=== PATIENT | female | born 1935 | race Caucasian/White ===

== ENCOUNTER 2018-04-15 15:03 | Emergency (ER) | payer OTHER, SELFPAY ==
--- NOTE | 2018-04-15 15:09 | DI.RAD.S_ITS ---
PROCEDURE: XR RIBS RT MIN 3V W CXR 1V INDICATIONS: injury pain TECHNIQUE: 2 views of the right ribs were acquired, along with a single view chest. COMPARISON: [facility], CHEST 1 VIEW, 04/28/2017, 15:28. [facility], CHEST 1 VIEW, 07/03/2015, 7:36. [facility], CHEST 2 VIEW, 05/13/2015, 17:55. [facility], CT, PE STUDY (CTA CHEST), 07/11/2017, 12:09. [facility], CHEST 2 VIEW, 12/22/2017, 21:38. FINDINGS: Surgical changes and devices: Sternotomy. Bones and chest wall: No fractures or dislocations. No suspicious bony lesions. Overlying soft tissues appear unremarkable. Lungs and pleura: No pleural effusions or pneumothorax. Bilateral diffuse interstitial prominence. Mediastinum: Mediastinal contours appear normal. Heart size is normal. IMPRESSION: 1. No displaced right rib fractures. 2. Bilateral diffuse interstitial dominance suggesting chronic interstitial lung disease or chronic congestive heart failure. Recommend clinical correlation. Dictated by: Magaly Ramirez M.D. on 04/15/2018 at 16:15 Approved by: Magaly Ramirez M.D. on 04/15/2018 at 16:18
[2018-04-15 15:18] VITALS: BP 178/68; PULSE 84; RESP 18; TEMP 37; O2SAT 95; BMI 24.4
--- NOTE | 2018-04-15 15:43 | ED_ITS ---
HPI - Fall <Jean Ta DO - Last Filed: 04/15/18 15:43> General Chief Complaint: Fall Stated Complaint: GLF YESTERDAY,RIGHT SIDE PAIN,HURTS TO BREATH Time Seen by Provider: 04/15/18 15:35 Related Data Home Medications Medication Instructions Recorded Confirmed atorvastatin 40 mg PO QHS #0 04/28/17 levothyroxine [Synthroid] 50 mcg PO AMCC #30 tab 04/28/17 tiotropium bromide [Spiriva with 1 puff INH QDAY #0 04/28/17 HandiHaler] amlodipine 10 mg PO QDAY #0 07/11/17 aspirin 162 mg PO QDAY #0 07/11/17 omega-3 acid ethyl esters [Lovaza] 1 gm PO QDAY #0 07/11/17 Previous Rx's Medication Instructions Recorded albuterol sulfate 3 ml INH Q6HP PRN #25 ea 07/11/17 nitrofurantoin monohyd/m-cryst 100 mg PO BID 3 Days #6 cap 04/15/18 [Macrobid] Allergies Allergy/AdvReac Type Severity Reaction Status Date / Time Sulfa (Sulfonamide Allergy Intermediate rash Verified 04/15/18 16:18 Antibiotics) acarbose Allergy Verified 04/15/18 16:44 amlodipine Allergy Verified 04/15/18 16:44 losartan Allergy Verified 04/15/18 16:44 montelukast [From Singulair] Allergy Verified 04/15/18 16:44 <Kandace Mcqueen PA-C - Last Filed: 04/15/18 21:27> General Source: patient Mode of arrival: ambulatory Limitations: no limitations History of Present Illness HPI Narrative: This 82-year-old female reached for her phone yesterday and states she did not realize she was on the very edge of the bed. She slipped out of bed onto her hardwood floor hitting her right elbow and ribs. She states that her elbow isn't bothering her at all, but she is sore where she hurt her ribs. It is painful to breathe or move in certain directions, better if she sits still. She denies hitting her head, any other injury or pain elsewhere. She states that she went to work today but felt sore so decided to come in. She also states that she was treated for a urinary infection several weeks ago at her local walk-in clinic. She states that she was having urinary frequency but voiding very small amounts along with some urgency. She states the symptoms have started to recur again in the last week and is concerned that infection is back. She denies any hematuria. She denies any dysuria. She denies any new flank pain, nausea, vomiting, or fever, chills, or sweats. <Kandace Mcqueen PA-C - Last Filed: 04/15/18 21:27> Review of Systems All systems reviewed & are unremarkable except as noted in HPI and below Exam <Jean Ta DO - Last Filed: 04/15/18 15:43> Initial Vital Signs Initial Vital Signs: Vital Signs Temperature 98.6 F 04/15/18 15:18 Pulse Rate 84 04/15/18 15:18 Respiratory Rate 18 04/15/18 15:18 Blood Pressure 178/68 H 04/15/18 15:18 Pulse Oximetry 95 04/15/18 15:18 <SHERRY Jones Last Filed: 04/15/18 21:27> Narrative Exam Narrative: GENERAL APPEARANCE: Patient sitting comfortably, in no distress. HEENT: PERRL, EOMI, no scalp abrasions or hematoma NECK: Supple LUNGS: Clear to auscultation bilaterally. CHEST: There are no ecchymoses or abrasions. Tender to palpation over the right lateral mid ribs. No tenderness elsewhere HEART: Rate and rhythm regular without murmur, normal S1 and S2, no S3 or S4. ABDOMEN: Soft, NT, ND NEUROLOGIC: Alert and oriented, normal speech, and coordination. Ambulates with a shortened gait MUSCULOSKELETAL: no tenderness over cervical, thoracic or lumbar spine. Full Csp AROM. Full AROM of R. UE throughout DERM: R. elbow small scabbed abrasion. 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 She does feel like her urinary symptoms are acute. She has a partial prescription of Macrobid left over at home and will restart this. I also sent a few days worth into the pharmacy for her. Advised scant bacteria on urinalysis and culture is pending, so should follow up with PCP if not fully resolving. Orders Ordered: ED Orders 04/15/18 15:09 XR ribs RT min 3V w CXR1V Stat 04/15/18 16:14 Urinalysis and Microscopic Stat Urine Culture Stat Vital Signs - 8 hr 04/15/18 15:18 04/15/18 17:26 Temperature 98.6 F Pulse Rate 84 64 Respiratory Rate 18 18 Blood Pressure 178/68 H 170/58 H Pulse Oximetry 95 95 MDM - Fall <DO Sydney Darnell Last Filed: 04/15/18 15:43> Lab Data Lab Results 04/15/18 Range/Units 16:14 Urine Color Yellow Urine Appearance Clear Urine pH 7.5 (4.5-8.0) Ur Specific [place] 1.015 (1.000-1.035) Urine Protein Negative (Negative) Urine Glucose (UA) Negative (Normal) g/dL Urine Ketones Negative (NEGATIVE) Urine Occult Blood Negative (Negative) Urine Nitrate Negative (Negative) Urine Bilirubin Negative (NEGATIVE) Urine Urobilinogen 0.2 (0.2) E.U./dL Ur Leukocyte Esterase 1+ H (NEGATIVE) Urine RBC None seen (0-5/HPF) Urine WBC 1-5/hpf (0-5/HPF) Ur Squamous Epith Cells 0-1 /hpf Amorphous Sediment 1+ Urine Bacteria Occasional (0-1) (None) Urine Mucus 1+ H (Negative) Ur Culture Indicated? Specimen cultured Micro UA Comment Not Reportable <Knadace Mcqueen PA-C - Last Filed: 04/15/18 21:27> Lab Data Lab Results 04/15/18 Range/Units 16:14 Urine Color Yellow Urine Appearance Clear Urine pH 7.5 (4.5-8.0) Ur Specific [place] 1.015 (1.000-1.035) Urine Protein Negative (Negative) Urine Glucose (UA) Negative (Normal) g/dL Urine Ketones Negative (NEGATIVE) Urine Occult Blood Negative (Negative) Urine Nitrate Negative (Negative) Urine Bilirubin Negative (NEGATIVE) Urine Urobilinogen 0.2 (0.2) E.U./dL Ur Leukocyte Esterase 1+ H (NEGATIVE) Urine RBC None seen (0-5/HPF) Urine WBC 1-5/hpf (0-5/HPF) Ur Squamous Epith Cells 0-1 /hpf Amorphous Sediment 1+ Urine Bacteria Occasional (0-1) (None) Urine Mucus 1+ H (Negative) Ur Culture Indicated? Specimen cultured Micro UA Comment Not Reportable Imaging Data Chest x-ray: Radiologist's impression: View Report History Print [address] [address] XRay Report Signed Patient: Lindsay Aguilar MR#: [id number] : 1935 Acct:[id number] Age/Sex: 82 / F Date of Service: 04/15/18 Loc: ED Accession Number: [id number] Procedure: XR ribs RT min 3V w CXR1V Ordering Provider: Jean Ta D.O. PROCEDURE: XR RIBS RT MIN 3V W CXR 1V INDICATIONS: injury pain TECHNIQUE: 2 views of the right ribs were acquired, along with a single view chest. COMPARISON: [facility], CHEST 1 VIEW, 04/28/2017, 15:28. [facility], CHEST 1 VIEW, 07/03/2015, 7:36. [facility], CHEST 2 VIEW, 05/13/2015, 17:55. [facility], CT, PE STUDY (CTA CHEST), 07/11/2017, 12:09. [facility], CR, CHEST 2 VIEW, 12/22/2017, 21:38. FINDINGS: Surgical changes and devices: Sternotomy. Bones and chest wall: No fractures or dislocations. No suspicious bony lesions. Overlying soft tissues appear unremarkable. Lungs and pleura: No pleural effusions or pneumothorax. Bilateral diffuse interstitial prominence. Mediastinum: Mediastinal contours appear normal. Heart size is normal. IMPRESSION: 1. No displaced right rib fractures. 2. Bilateral diffuse interstitial dominance suggesting chronic interstitial lung disease or chronic congestive heart failure. Recommend clinical correlation. Dictated by: Magaly Ramirez M.D. on 04/15/2018 at 16:15 Approved by: Magaly Ramirez M.D. on 04/15/2018 at 16:18 Discharge Plan Departure Patient Disposition: Home Clinical Impression: Contusion of rib on right side, Increased urinary frequency Discharge Date/Time: 04/15/18 17:26 Interventions: ED Discharge Assessment Last Done: 04/15/18 17:26 Instructions: Acute Cystitis, DI for Rib Contusion Activity Restrictions/Additional Instructions: Please try taking Tylenol arthritis strength or extended release (650 mg per pill), which is longer acting than what you have at home. You can take 1 tab every 8 hr routinely for pain, and you can add a 4th tab during the day if needed. Also try [id number] lidocaine 4% patches and apply them to your sore ribs to help with pain. None of the should make you sleepy. Please start the antibiotic nitrofurantoin that you already have at home twice daily. I sent in a prescription for a few more days of this to [facility] for you. You should follow up with your PCP if not better in a few days. You should do light duty, i.e. answering phone or greeting, at work until your ribs are better as twisting, bending and lifting may worsen your rib pain. You should return to the closest ED right away if you have any acutely worsening symptoms Prescriptions: New nitrofurantoin monohyd/m-cryst [Macrobid] 100 mg capsule 100 mg PO BID 3 Days Qty: 6 RF: 0 No Action levothyroxine [Synthroid] 50 MCG tablet 50 mcg PO AMCC Qty: 30 RF: 0 atorvastatin 40 MG tablet 40 mg PO QHS Qty: 0 RF: 0 tiotropium bromide [Spiriva with HandiHaler] 18 MCG capsule, w/inhalation device 1 puff INH QDAY Qty: 0 RF: 0 aspirin 81 MG tablet,delayed release (DR/EC) 162 mg PO QDAY Qty: 0 RF: 0 amlodipine 10 MG tablet 10 mg PO QDAY Qty: 0 RF: 0 omega-3 acid ethyl esters [Lovaza] 1 GM capsule 1 gm PO QDAY Qty: 0 RF: 0 albuterol sulfate 2.5 MG/3 ML solution for nebulization 3 ml INH Q6HP PRNQty: 25 RF: 5 Referrals: Allie Fleming MD [Physician] - Stand Alone Forms: Work/School Restrictions
--- NOTE | 2018-04-15 15:48 | ED.FALL ---
HPI - Fall General Chief Complaint: Fall Stated Complaint: GLF YESTERDAY,RIGHT SIDE PAIN,HURTS TO BREATH Time Seen by Provider: 04/15/18 15:45 Related Data Home Medications Medication Instructions Recorded Confirmed atorvastatin 40 mg PO QHS #0 04/28/17 levothyroxine [Synthroid] 50 mcg PO AMCC #30 tab 04/28/17 tiotropium bromide [Spiriva with 1 puff INH QDAY #0 04/28/17 HandiHaler] amlodipine 10 mg PO QDAY #0 07/11/17 aspirin 162 mg PO QDAY #0 07/11/17 omega-3 acid ethyl esters [Lovaza] 1 gm PO QDAY #0 07/11/17 Previous Rx's Medication Instructions Recorded albuterol sulfate 3 ml INH Q6HP PRN #25 ea 07/11/17 Allergies Allergy/AdvReac Type Severity Reaction Status Date / Time No Known Drug Allergies Allergy Unknown STATES Unverified 12/03/17 12:34 [NO KNOWN DRUG ALLERGIES] ALLERGIC TO AN ANTIBIOTIC, DOES NOT RECALL WHICH ONE Exam Initial Vital Signs Initial Vital Signs: Vital Signs Temperature 98.6 F 04/15/18 15:18 Pulse Rate 84 04/15/18 15:18 Respiratory Rate 18 04/15/18 15:18 Blood Pressure 178/68 H 04/15/18 15:18 Pulse Oximetry 95 04/15/18 15:18 PFSH Social History Smoking Status: Former smoker Course Orders Ordered: ED Orders 04/15/18 15:09 XR ribs RT min 3V w CXR1V Stat Vital Signs - 8 hr 04/15/18 15:18 Temperature 98.6 F Pulse Rate 84 Respiratory Rate 18 Blood Pressure 178/68 H Pulse Oximetry 95 Discharge Plan Departure Prescriptions: No Action levothyroxine [Synthroid] 50 MCG tablet 50 mcg PO AMCC Qty: 30 RF: 0 atorvastatin 40 MG tablet 40 mg PO QHS Qty: 0 RF: 0 tiotropium bromide [Spiriva with HandiHaler] 18 MCG capsule, w/inhalation device 1 puff INH QDAY Qty: 0 RF: 0 aspirin 81 MG tablet,delayed release (DR/EC) 162 mg PO QDAY Qty: 0 RF: 0 amlodipine 10 MG tablet 10 mg PO QDAY Qty: 0 RF: 0 omega-3 acid ethyl esters [Lovaza] 1 GM capsule 1 gm PO QDAY Qty: 0 RF: 0 albuterol sulfate 2.5 MG/3 ML solution for nebulization 3 ml INH Q6HP PRNQty: 25 RF: 5
[2018-04-15 16:42] LABS: RBC Urine None Seen (0-5/HPF)
[2018-04-15 16:51] LABS: Appearance Urine UA CLEAR; Bilirubin Urine UA NEGATIVE (NEGATIVE); Color Urine UA YELLOW; Glucose Urine UA NEGATIVE (Normal); Ketones Urine UA NEGATIVE (NEGATIVE); Leukocyte Esterase Urine UA 1+ (NEGATIVE); Nitrite Urine UA Negative (Negative); Occult Blood Urine UA NEGATIVE (Negative); Protein Urine UA NEGATIVE (Negative); Specific Gravity Urine UA 1.015 (1.000-1.035); Urobilinogen Urine UA 0.2 E.U./dL (0.2); pH Urine UA 7.5 (4.5-8.0)
[2018-04-15 16:53] LABS: Amorphous Sediment Urine 1+; Bacteria Urine Occasional (0-1); Mucus Urine 1+ (Negative); Squamous Epithelial Cell Urine 0-1 /HPF; WBC Urine 1-5/HPF (0-5/HPF)
[2018-04-15 16:54] LABS: Culture Indicated Urine Specimen Cultured
[2018-04-15 17:26] VITALS: BP 170/58; PULSE 64; RESP 18; O2SAT 95
== END 2018-04-15 17:26 | disposition home or self-care (01) ==
PROVIDERS: Emergency Provider Internal Medicine
DX: R10.9 Unspecified abdominal pain (principal)
CPT/HCPCS: 71101; 81001; 87086; 99282

== ENCOUNTER 2018-04-17 12:04 | Inpatient (IN) | payer OTHER, SELFPAY ==
[2018-04-17] VITALS (16 sets, daily range): BP systolic 129–185; BP diastolic 47–85; PULSE 10–110; RESP 18–35; TEMP 36.6–38.6; O2SAT 88–97; BMI 20.7; BMI 20.8
[2018-04-17] MEDS: ALBUTEROL/IPRATROPIUM 3 ML AMPUL INH (12:18)
--- NOTE | 2018-04-17 12:24 | ED.WEAKNESS ---
HPI - Weakness General Chief complaint: Weakness Stated complaint: Multiple Complaints Time Seen by Provider: 04/17/18 12:07 Source: patient and EMS Mode of arrival: EMS Limitations: no limitations History of Present Illness HPI Narrative: Patient is an 82-year-old female who was seen here in the emergency department a couple days ago after having a mechanical fall and hitting her right side of her chest. She had workup at that time which did not show any rib fractures. She was discharged home. She does have a history of COPD and uses 2 L of oxygen by nasal cannula at night. She states that since she was discharged from here she has had continued right-sided pain and since then it has become worse and she has had more problems breathing. She has had to use her nasal cannula more often. She states that she did take her pain medication. Denies any chest pain. States she feels very weak and tired. Related Data Home Medications Medication Instructions Recorded Confirmed atorvastatin 40 mg PO QHS #0 04/28/17 04/17/18 levothyroxine [Synthroid] 50 mcg PO [facility] #30 tab 04/28/17 04/17/18 tiotropium bromide [Spiriva with 1 puff INH QDAY #0 04/28/17 04/17/18 HandiHaler] amlodipine 10 mg PO QDAY #0 07/11/17 04/17/18 aspirin 162 mg PO QDAY #0 07/11/17 04/17/18 omega-3 acid ethyl esters [Lovaza] 1 gm PO QDAY #0 07/11/17 04/17/18 albuterol sulfate 3 ml INH Q6HP PRN 04/17/18 04/17/18 Previous Rx's Medication Instructions Recorded nitrofurantoin monohyd/m-cryst 100 mg PO BID 3 Days #6 cap 04/15/18 [Macrobid] Allergies Allergy/AdvReac Type Severity Reaction Status Date / Time Sulfa (Sulfonamide Allergy Intermediate rash Verified 04/15/18 16:18 Antibiotics) acarbose Allergy Verified 04/15/18 16:44 amlodipine Allergy Verified 04/15/18 16:44 losartan Allergy Verified 04/15/18 16:44 montelukast [From Singulair] Allergy Verified 04/15/18 16:44 Review of Systems Constitutional Reports fatigue, Denies fever(s), Denies headache(s) and Reports malaise ENT Ears, Nose, Mouth, and Throat: Denies vertigo and Denies headache(s) Cardiovascular Denies chest pain and Reports dyspnea Comments: Right lower rib pain Respiratory Denies chest congestion, Denies cough, Reports pain on inspiration, Reports dyspnea and Reports wheezing Gastrointestinal Gastrointestinal: Denies abdominal pain, Denies nausea and Denies vomiting Genitourinary Denies dysuria Musculoskeletal Denies myalgias and Denies arthralgias Integumentary/Breasts Denies lesions and Denies rash Neurologic Denies confusion, Denies vertigo and Denies headache(s) Psychiatric Denies confusion Endocrine Reports fatigue Hematologic/Lymphatic Denies easy bleeding and Denies easy bruising Allergic/Immunologic Reports wheezing PFSH Medical History Unstable angina (Chronic) Elevated TSH (Chronic) Aneurysm of infrarenal abdominal aorta (Chronic) CAD (coronary artery disease) (Chronic) COPD (chronic obstructive pulmonary disease) with emphysema (Chronic) HTN (hypertension) (Chronic) Hyperlipidemia (Chronic) Valvular heart disease (Chronic) Bilateral carpal tunnel syndrome (Resolved) Surgical History H/O hysterectomy with oophorectomy (Resolved) H/O three vessel coronary artery bypass (Resolved) Hx of heart artery stent (Resolved) Status post cholecystectomy (Resolved) Social History household members: children Smoking Status: Former smoker alcohol intake: never Exam Initial Vital Signs Initial Vital Signs: Vital Signs Pulse Rate 10 L 04/17/18 12:17 Respiratory Rate 32 H 04/17/18 12:17 Pulse Oximetry 97 04/17/18 12:17 Const General: cooperative, well developed, well groomed and in distress (Mild) Orientation: alert, awake and oriented x3 HENMT Head: normal to inspection and normocephalic Resp Effort & Inspection: no cough, labored, no nasal flaring, no retractions, no stridor, tachypneic, no tracheal deviation and symmetric chest movement Auscultation: wheezes expiratory wheezes Cardio Rate: regular rate Rhythm: regular rhythm GI Inspection: non-distended Palpation: soft, No firm and No tender Back/Spine/Pelvis Back: No CVA tenderness Other: Right-sided lower rib pain and right flank pain. Skin Lesions: no lesions Rashes: no rashes Neuro General: alert, awake and oriented x3 Cognition: normal cognition Extrem General: normal to inspection, capillary refill normal and No edema Psych Appearance: grossly normal and well kempt Scores GCS [place] coma scale eye opening: Spontaneous [place] coma scale verbal response: Orientated [place] coma scale motor response: Obey commands [place] coma scale total score: 15 Course Orders Ordered: ED Orders 04/17/18 12:42 XR chest 1V Stat 04/17/18 13:00 B Type Natriuretic Peptide Stat Complete Blood Count AUTO DIFF Stat Comprehensive Metabolic Panel Stat Lactate (Lactic Acid) Stat Lipase Stat Procalcitonin Stat 04/17/18 14:41 Urinalysis and Microscopic Routine 04/17/18 14:44 Education, smoking cessation ONGOING 04/17/18 14:49 Consult to Discharge Planning Routine Consult to Physical Therapy Evaluate & Treat 04/17/18 15:15 Blood Culture Urgent 04/18/18 05:00 Complete Blood Count AUTO DIFF DAILY Comprehensive Metabolic Panel DAILY Acetaminophen (Tylenol) 650 mg PO Q4HR PRN PRN Reason: Fever Last Admin: 04/17/18 15:06 Dose: 650 mg Albuterol (Ventolin) 2.5 mg INH Q6H PRN PRN Reason: Shortness Of Breath Amlodipine Besylate (Norvasc) 10 mg PO DAILY [facility] Aspirin (Aspirin Ec) 162 mg PO DAILY [facility] Atorvastatin Calcium (Lipitor) 40 mg PO BEDTIME [facility] Bisacodyl (Dulcolax) 10 mg [place] DAILY PRN PRN Reason: Constipation Docusate Sodium (Colace) 100 mg PO BID [facility] Enoxaparin Sodium (Lovenox) 40 mg SUBCUT DAILY [facility] Last Admin: 04/17/18 15:34 Dose: 40 mg Ceftriaxone Sodium/Dextrose (Rocephin) 1 gm in 50 mls @ 100 mls/hr IV Q24H [facility] Last Infusion: 04/17/18 16:09 Dose: 100 mls/hr Admin: 04/17/18 15:34 Dose: 100 mls/hr Sodium Chloride (Normal Saline 0.45%) 1,000 mls @ 75 mls/hr IV CONT [facility] Last Admin: 04/17/18 15:09 Dose: 75 mls/hr Azithromycin 500 mg/ Dextrose 250 mls @ 250 mls/hr IV Q24H [facility] Last Admin: 04/17/18 16:09 Dose: 250 mls/hr Levothyroxine Sodium (Synthroid) 50 mcg PO 0600 [facility] Naloxone HCl (Narcan) 0.2 mg IV Q2MIN PRN PRN Reason: Opiate Reversal Ondansetron HCl (Zofran) 4 mg IV Q8HR PRN PRN Reason: Nausea And Vomiting Oxycodone/Acetaminophen (Percocet 5/325) 1 tab PO Q4HR PRN PRN Reason: Pain, Moderate (4-6) Pantoprazole Sodium (Protonix) 20 mg PO 0600 [facility] Sennosides (Senna) 17.2 mg PO BEDTIME ROLANDA Tiotropium [place] (Spiriva) 18 mcg INH DAILY [facility] Discontinued Medications Albuterol/Ipratropium (Duoneb) 3 ml INH NOW ONE Stop: 04/17/18 12:17 Last Admin: 04/17/18 12:18 Dose: 3 ml Sodium Chloride (Normal Saline 0.9%) 1,000 mls @ 125 mls/hr IV CONT [facility] Last Infusion: 04/17/18 15:07 Dose: 75 mls/hr Infusion: 04/17/18 14:23 Dose: 0 mls/hr Admin: 04/17/18 13:24 Dose: 125 mls/hr Vital Signs - 8 hr 04/17/18 12:17 04/17/18 12:22 04/17/18 12:33 Temperature 99.6 F Pulse Rate 10 L 110 H 98 H Respiratory Rate 32 H 35 H 31 H Blood Pressure 185/66 H Blood Pressure [Left Arm] 182/69 H Pulse Oximetry 97 91 95 04/17/18 12:49 04/17/18 13:00 04/17/18 13:48 Temperature Pulse Rate 110 H 101 H Respiratory Rate 27 H 29 H Blood Pressure Blood Pressure [Left Arm] 162/85 H 163/64 H Pulse Oximetry 97 95 95 04/17/18 14:15 04/17/18 14:27 04/17/18 15:06 Temperature 101.4 F H 98.8 F 101.4 F H Pulse Rate 102 H 110 H Respiratory Rate 28 H 24 Blood Pressure 175/78 H 155/75 H Blood Pressure [Left Arm] Pulse Oximetry 95 95 04/17/18 15:24 04/17/18 15:42 04/17/18 15:52 Temperature 98.5 F Pulse Rate 109 H Respiratory Rate 20 Blood Pressure 168/75 H Blood Pressure [Left Arm] Pulse Oximetry 95 93 95 MDM - Weakness Medical Records Attestation: I reviewed the patient's medical records. Lab Data Attestation: I reviewed the patient's lab results. Result diagrams: 04/17/18 13:00 04/17/18 13:00 Lab Results 04/17/18 04/17/18 04/17/18 Range/Units 13:00 13:00 13:00 WBC 11.5 H (4.5-11.0) X10^3/uL RBC 5.34 H (4.0-5.2) X10^6/uL Hgb 15.0 (12.0-16.0) g/dL Hct 44.7 (36-46) % MCV 83.6 (80-100) fL MCH 28.1 (26-34) PG MCHC 33.6 (30-36) % RDW 15.0 H (11.6-14.8) % Plt Count 211 (150-400) X10^3/uL Neut % (Auto) 90.1 H (50-75) % Lymph % (Auto) 4.0 L (25-40) % [place] % (Auto) 3.3 (3-14) % Eos % (Auto) 1.9 L (2-4) % Baso % (Auto) 0.7 (0-2) % Neut # (Auto) 95568 H (7541-7405) /uL Sodium 140 (137-145) mmol/L Potassium 4.3 (3.4-5.1) mmol/L Chloride 101 (98-107) mmol/L Carbon Dioxide 27 (22-32) mmol/L BUN 24 H (7-17) mg/dL Creatinine 0.90 (0.52-1.04) mg/dL Estimated GFR > 60.0 (>60) mL/min BUN/Creatinine Ratio 26.7 H (6-22) Glucose 111 H (80-110) mg/dL Lactate (0.7-2.1) mmol/L Calcium 10.4 H (8.4-10.2) mg/dL Total Bilirubin 1.0 (0.2-1.3) mg/dL AST 24 (14-36) IU/L ALT 27 (9-52) IU/L Alkaline Phosphatase 66 (38-126) U/L B-Natriuretic Peptide 267.0 H (<100) Total Protein 6.7 (6.3-8.2) g/dL Albumin 4.0 (3.5-5.0) g/dL Globulin 2.7 (1.7-4.1) g/dL Albumin/Globulin Ratio 1.5 (1.0-2.8) Lipase 44 (23-300) U/L Procalcitonin 0.18 (<0.5) ng/mL 04/17/18 Range/Units 13:00 WBC (4.5-11.0) X10^3/uL RBC (4.0-5.2) X10^6/uL Hgb (12.0-16.0) g/dL Hct (36-46) % MCV (80-100) fL MCH (26-34) PG MCHC (30-36) % RDW (11.6-14.8) % Plt Count (150-400) X10^3/uL Neut % (Auto) (50-75) % Lymph % (Auto) (25-40) % [place] % (Auto) (3-14) % Eos % (Auto) (2-4) % Baso % (Auto) (0-2) % Neut # (Auto) (3218-8555) /uL Sodium (137-145) mmol/L Potassium (3.4-5.1) mmol/L Chloride (98-107) mmol/L Carbon Dioxide (22-32) mmol/L BUN (7-17) mg/dL Creatinine (0.52-1.04) mg/dL Estimated GFR (>60) mL/min BUN/Creatinine Ratio (6-22) Glucose (80-110) mg/dL Lactate 1.5 (0.7-2.1) mmol/L Calcium (8.4-10.2) mg/dL Total Bilirubin (0.2-1.3) mg/dL AST (14-36) IU/L ALT (9-52) IU/L Alkaline Phosphatase (38-126) U/L B-Natriuretic Peptide (<100) Total Protein (6.3-8.2) g/dL Albumin (3.5-5.0) g/dL Globulin (1.7-4.1) g/dL Albumin/Globulin Ratio (1.0-2.8) Lipase (23-300) U/L Procalcitonin (<0.5) ng/mL Imaging Data Chest x-ray: Radiologist's impression: [place] [id number] [place] [id number] XRay Report Signed Patient: Lindsay Aguilar AMR#: [id number] : 7Acct:[id number] Age/Sex: 82 / FDate of Service: 04/17/18 Loc: ED Accession Number: [id number] Procedure: XR chest 1V Ordering Provider: Jean Ta D.O. PROCEDURE: XR CHEST 1V INDICATIONS: SOB TECHNIQUE: One view of the chest was acquired. COMPARISON: [facility], , CHEST 2 VIEW, 12/22/2017, 21:38. FINDINGS: Surgical changes and devices: Postoperative changes are present related to prior median sternotomy. Lungs and pleura: There are low lung volumes. Subtle airspace disease at the left diaphragm is identified a partially obscures the diaphragm and the costophrenic angle. There is blunting of the right costophrenic angle, as well. No large area of consolidation is evident. There is no pleural effusion. Mediastinum: Mediastinal contours appear normal. The heart is borderline enlarged. There are is aortic atherosclerosis. Bones and chest wall: No suspicious bony lesions. Overlying soft tissues appear unremarkable. IMPRESSION: 1. Probable trace bilateral effusions and associated atelectasis. 2. Borderline enlargement of the heart. Dictated by: Xavier Nolan M.D. on 04/17/2018 at 12:19 Approved by: Xavier Nolan M.D. on 04/17/2018 at 12:20 ECG Data Attestation: I personally reviewed and interpreted this ECG as follows: Prior ECG tracings: not available for review Interpretation: Sinus rhythm Ventricular rate in 99 Normal axis Right bundle branch block Normal QTC Nonspecific ST T wave changes MDM Narrative Medical decision making narrative: Reported by nursing staff patient having wheezing upon arrival. Received a nebulizer treatment here in the ER which did improve some of her symptoms. She was tachypneic upon arrival. Was never hypoxic however is on 2 L of oxygen by nasal cannula. She does have this at home but only uses it at night. Has had worsening right-sided flank pain since her fall couple days ago. Chest x-ray today is concerning for atelectasis. I suspect that secondary to the pain she has been splinting at home. This does set her up for conditions such as pneumonia. Only a very slightly elevated white blood cell count. She was afebrile here in the ER. I feel that given her age and her right-sided pain and the possibility of a rib fracture not seen on the chest x-ray and the fact that she has been splinting that her pain is not controlled and potentially causing issues with her COPD. I feel that admission to the hospital is warranted for continued respiratory support. Discussed the case with Dr. Stiles who accepts the patient. Discussed admission with the patient who expressed understanding and agreement. Discharge Plan Departure Patient Disposition: Admitted as Observation Clinical Impression: Chest pain, Acute respiratory distress, Atelectasis of both lungs Discharge Date/Time: 04/17/18 14:27 Interventions: ED Discharge Assessment Last Done: 04/17/18 14:27 Admit Date/Time: 04/17/18 13:51 Admit Provider: Praneeth Monet
--- NOTE | 2018-04-17 12:42 | DI.RAD.S_ITS ---
PROCEDURE: XR CHEST 1V INDICATIONS: SOB TECHNIQUE: One view of the chest was acquired. COMPARISON: [facility], , CHEST 2 VIEW, 12/22/2017, 21:38. FINDINGS: Surgical changes and devices: Postoperative changes are present related to prior median sternotomy. Lungs and pleura: There are low lung volumes. Subtle airspace disease at the left diaphragm is identified a partially obscures the diaphragm and the costophrenic angle. There is blunting of the right costophrenic angle, as well. No large area of consolidation is evident. There is no pleural effusion. Mediastinum: Mediastinal contours appear normal. The heart is borderline enlarged. There are is aortic atherosclerosis. Bones and chest wall: No suspicious bony lesions. Overlying soft tissues appear unremarkable. IMPRESSION: 1. Probable trace bilateral effusions and associated atelectasis. 2. Borderline enlargement of the heart. Dictated by: Xavier Nolan M.D. on 04/17/2018 at 12:19 Approved by: Xavier Nolan M.D. on 04/17/2018 at 12:20
[2018-04-17 13:15] LABS: Add Manual Diff / Slide Review NO; Basophils Percent Auto 0.7 % (0-2); Eosinophils Percent Auto 1.9 % (2-4); Hematocrit 44.7 % (36-46); Mean Corpuscular HGB Conc 33.6 % (30-36); Mean Corpuscular Hemoglobin 28.1 PG (26-34); Mean Corpuscular Volume 83.6 fL (80-100); Monocytes Percent Auto 3.3 % (3-14); Neutrophils Absolute Auto 10300 /uL (3000-5900); Neutrophils Percent Auto 90.1 % (50-75); Platelet Count 211 X10^3/uL (150-400); Red Blood Cell Count 5.34 X10^6/uL (4.0-5.2); White Blood Cell Count 11.5 X10^3/uL (4.5-11.0)
[2018-04-17 13:21] LABS: Lactate (Lactic Acid) 1.5 mmol/L (0.7-2.1)
[2018-04-17] MEDS: SODIUM CHLORIDE 0.9% 1,000 ML 125 ML IV (13:24)
[2018-04-17 13:25] LABS: Alanine Aminotransferase 27 IU/L (9-52); Albumin Globulin Ratio 1.5 (1.0-2.8); Alkaline Phosphatase 66 U/L (38-126); Aspartate Aminotransferase 24 IU/L (14-36); BUN Creatinine Ratio 26.7 (6-22); Blood Urea Nitrogen 24 mg/dL (7-17); Calcium 10.4 mg/dL (8.4-10.2); Carbon Dioxide 27 mmol/L (22-32); Chloride 101 mmol/L (98-107); Estimated Glomerular Filt Rate > 60.0 mL/min (>60); Globulin 2.7 g/dL (1.7-4.1); Glucose 111 mg/dL (80-110); HEMOLYSIS < 15 (0-50); Lipase 44 U/L (23-300); Potassium 4.3 mmol/L (3.4-5.1); Sodium 140 mmol/L (137-145); Total Protein 6.7 g/dL (6.3-8.2)
[2018-04-17 13:44] LABS: Procalcitonin 0.18 ng/mL (<0.5)
--- NOTE | 2018-04-17 14:13 | PC.NURSE ---
Patient unable to take a deep breath related to right chest injury from fall on Friday;
[2018-04-17] MEDS: ACETAMINOPHEN 325 MG TABLET 650 MG PO ×2 (15:06→20:05)
[2018-04-17] MEDS: SODIUM CHLORIDE 0.45% 1,000 ML 75 ML IV (15:09)
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
--- NOTE | 2018-04-17 15:32 | PC.NURSE ---
patient arrived to rm 202 at 1435. she was 1p assist to ambulate to br. clean catch ua obtained and sent. patient c/o rigors/chills. temp 101.4, bp elevated 170's systolic. warm blanket provided. notified of the above. order for tylenol. bld cx's have just been collected. report given to urban villaseñor. passed on admission assessment to be completed by urban villaseñor.
[2018-04-17] MEDS: CEFTRIAXONE 1 GM/50 ML FROZ.PIGGY IV (15:34)
[2018-04-17] MEDS: ENOXAPARIN 40 MG/0.4 ML SYRINGE SUBCUT (15:34)
[2018-04-17] MEDS: AZITHROMYCIN 500 MG in DEXTROSE 5% IN WATER 250 ML IV (16:09)
[2018-04-17 19:21] LABS: Appearance Urine UA CLEAR; Bilirubin Urine UA NEGATIVE (NEGATIVE); Color Urine UA YELLOW; Glucose Urine UA NEGATIVE (Normal); Ketones Urine UA NEGATIVE (NEGATIVE); Leukocyte Esterase Urine UA NEGATIVE (NEGATIVE); Nitrite Urine UA Negative (Negative); Occult Blood Urine UA TRACE-LYSED (Negative); Protein Urine UA NEGATIVE (Negative); Urobilinogen Urine UA 0.2 E.U./dL (0.2)
[2018-04-17 19:43] LABS: RBC Urine 0-1/HPF (0-5/HPF); Squamous Epithelial Cell Urine 0-1 /HPF; WBC Urine 0-1/HPF (0-5/HPF)
[2018-04-17 19:44] LABS: Bacteria Urine Occasional (0-1); Culture Indicated Urine Cult Not Indicated
--- NOTE | 2018-04-17 19:53 | PC.NURSE ---
Assumed care of patient when pt moved to room 206. [address] Afebrile. Up to bathroom with assistance. Returned to bed. Visiting with female visitor in room.
[2018-04-17] MEDS: ATORVASTATIN 20 MG TABLET 40 MG PO (20:03)
--- NOTE | 2018-04-17 22:02 | PC.NURSE ---
Administered 650 mg tylenol for c/o right rib pain. Remains afebrile. Tele in place. Appropriate mentation and conversation. Uses call light appropriately. IV fluids infusing as ordered without difficulty.
[2018-04-18] VITALS (10 sets, daily range): BP systolic 114–135; BP diastolic 46–60; PULSE 63–76; RESP 14–20; TEMP 36.1–36.7; O2SAT 94–98
[2018-04-18] MEDS: ACETAMINOPHEN 325 MG TABLET 650 MG PO ×2 (04:09→14:17)
[2018-04-18 05:54] LABS: Add Manual Diff / Slide Review NO; Basophils Percent Auto 0.2 % (0-2); Eosinophils Percent Auto 5.6 % (2-4); Hematocrit 39.6 % (36-46); Hemoglobin 13.4 g/dL (12.0-16.0); Lymphocytes Percent Auto 4.2 % (25-40); Mean Corpuscular HGB Conc 33.8 % (30-36); Mean Corpuscular Hemoglobin 28.2 PG (26-34); Mean Corpuscular Volume 83.4 fL (80-100); Neutrophils Absolute Auto 8600 /uL (3000-5900); Platelet Count 198 X10^3/uL (150-400); Red Blood Cell Count 4.74 X10^6/uL (4.0-5.2); Red Cell Distribution Width 14.6 % (11.6-14.8)
[2018-04-18 06:05] LABS: Alanine Aminotransferase 35 IU/L (9-52); Albumin 3.2 g/dL (3.5-5.0); Albumin Globulin Ratio 1.3 (1.0-2.8); Alkaline Phosphatase 53 U/L (38-126); Aspartate Aminotransferase 29 IU/L (14-36); BUN Creatinine Ratio 22.5 (6-22); Bilirubin Total 1.2 mg/dL (0.2-1.3); Blood Urea Nitrogen 18 mg/dL (7-17); Calcium 9.3 mg/dL (8.4-10.2); Carbon Dioxide 30 mmol/L (22-32); Chloride 100 mmol/L (98-107); Estimated Glomerular Filt Rate > 60.0 mL/min (>60); Globulin 2.4 g/dL (1.7-4.1); Glucose 107 mg/dL (80-110); HEMOLYSIS < 15 (0-50); Sodium 137 mmol/L (137-145); Total Protein 5.6 g/dL (6.3-8.2)
[2018-04-18] MEDS: LEVOTHYROXINE 50 MCG TABLET PO (07:29)
[2018-04-18] MEDS: PANTOPRAZOLE 20 MG TABLET PO (07:29)
[2018-04-18] MEDS: TIOTROPIUM BROMIDE 18 MCG INHALER INH (07:54)
--- NOTE | 2018-04-18 09:21 | PT.IIE ---
Surgical History (Last Reviewed 04/17/18 @ 16:18 by Jean Ta DO) H/O hysterectomy with oophorectomy (Resolved) H/O three vessel coronary artery bypass (Resolved) Hx of heart artery stent (Resolved) Status post cholecystectomy (Resolved) Medical History (Last Reviewed 04/17/18 @ 16:18 by Jean Ta DO) Unstable angina (Chronic) Elevated TSH (Chronic) Aneurysm of infrarenal abdominal aorta (Chronic) CAD (coronary artery disease) (Chronic) COPD (chronic obstructive pulmonary disease) with emphysema (Chronic) HTN (hypertension) (Chronic) Hyperlipidemia (Chronic) Valvular heart disease (Chronic) Bilateral carpal tunnel syndrome (Resolved) Physical Therapy Inpatient Evaluation/Re-Eval M1 PT/OT-IP Prior Functional Status Start: 04/18/18 09:31 Freq: NEEDED Status: Active Protocol: Document 04/18/18 08:50 NFW (Rec: 04/18/18 09:58 NFW [id number]) Medical Review Prior Functional Status Medical History Reviewed Yes Communication Discussion with nursing pre and post treatment regarding status of patient. Mobility and Gait Patient prior to admittance to patient ambulated without any assistive devices without difficulty. Activities of Daily Living and IADL's Patient prior to admittance was independent in all ADLs, cooking, cleaning, grocery shopping, driving. 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 Social History Household Members children Living Arrangements House Number of Floors (Floors) One Floor Number of Stairs To Enter/Railing? Two steps to enter home, no handrails. 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 Patient uses O2 at night. M2 PT-IP Current Condition Start: 04/18/18 09:31 Freq: NEEDED Status: Active Protocol: Document 04/18/18 08:50 NFW (Rec: 04/18/18 09:58 NFW [id number]) Physical Therapy Current Condition Current Condition Evaluation Date 04/18/18 Treatment Diagnosis Pneumonia and Weakness. Bruising of right chest wall Onset Date 04/17/18 Precautions Other Precautions Bruising of right chest wall. Weight Bearing Status Weight Bearing Status Full Weight Bearing M3 PT-IP Subjective Start: 04/18/18 09:31 Freq: NEEDED Status: Active Protocol: Document 04/18/18 08:50 NFW (Rec: 04/18/18 09:58 NFW [id number]) Subjective Physical Therapy Visit Type Type Initial Evaluation Visit Start Time 08:50 Visit Stop Time 09:21 Total Visit Minutes 41 Physical Therapy Visit Comments Patient Comments Patient's main complaint is fatigue. Short Term Goals Pain desires to return home with son and granddaughter. She also plans to return to work at [employer] as a service bar cashier. Therapy Pain Assessment Pain When Pain Assessed During Mobility Pain Present Pain Present Denied Pain M4 PT-IP Mobility and Gait Start: 04/18/18 09:31 Freq: NEEDED Status: Active Protocol: Document 04/18/18 08:50 NFW (Rec: 04/18/18 09:58 NFW [id number]) PT-Bed Mobility Assessment Rolling Level of Assist Independent Supine to Sit Supine to Sit Independent Scooting Scooting to Edge of Bed Independent PT-Transfer Assessment Sit to and From Stand Sit to and from Stand Contact Guard Assistance Equipment Transfer Assistive Device Gait Belt Front Wheeled Walker Orthotic/Prosthetic Devices or Brace: No Transfers Transfer Destination Bed Chair Toilet Transfer Technique Stand Pivot Transfer Ability Level of Assist Contact Guard Assistance Comments Mobility Comments Patient reports that bed mobility activities less painful in chest area. Gait Assessment Gait Gait Assistance Required: Contact Guard Assist Distance (Feet) (feet) 60 Able to Maintain Weight Bearing Status Yes During Gait Assistive Devices Assistive Device None Gait Belt Front Wheeled Walker Orthotic/Prosthetic Devices or Brace: No Gait Deviations General Gait Pattern Flexed Trunk Factors Limiting Gait Function Factors Limiting Gait Function Decreased Strength Comments Gait Comments Utilized FWW in mobilizing from bed to toilet. No assistive devices from toilet to sink, around room and to chair. Main complaint of feeling fatigued. M5 PT-IP Objective Assessments Start: 04/18/18 09:31 Freq: NEEDED Status: Active Protocol: Document 04/18/18 08:50 NFW (Rec: 04/18/18 10:41 NFW [id number]) Orientation Orientation/Cognition Level of Alertness Alert Orientation Name Age Place Language Function Ability No Deficits Noted Memory Description No Deficits Noted Gross Range of Motion Upper Extremity ROM Assessment Within Functional Limits Lower Extremity ROM Assessment Within Functional Limits Strength Upper Extremity Strength Assessment Within Functional Limits Lower Extremity Strength Assessment Within Functional Limits M7 PT-IP Assessment and Plan Start: 04/18/18 09:31 Freq: NEEDED Status: Active Protocol: Document 04/18/18 08:50 NFW (Rec: 04/18/18 10:45 NFW [id number]) PT Summary Assessment and Plan Potential Rehabilitation Potential Excellent Status of Condition at Evaluation Evolving Summary Impairments Strength Progress Towards Goals Progressing Toward Goals Goals Bed Mobility Goal Independent Transfer Goal Independent Gait Goal Independent Gait Distance 200 ft Days to Meet Goals 2 Frequency of Treatment Frequency Of Treatment Twice a Day Treatment Plan Physical Therapy Treatment Plan Transfer Training Gait Training Therapeutic Exercise Balance Retraining Discharge Planning Neuromuscular Re-ed Coordination Retraining Recommendations To Nursing Amount of Assist Needed 1 Person Assist Discharge Recommendations PT Discharge Recommendations Home
[2018-04-18] MEDS: AMLODIPINE 5 MG TABLET 10 MG PO (09:40)
[2018-04-18] MEDS: ENOXAPARIN 40 MG/0.4 ML SYRINGE SUBCUT (09:41)
[2018-04-18] MEDS: ASPIRIN EC 81 MG TABLET 162 MG PO (09:41)
--- NOTE | 2018-04-18 11:57 | CM.DANOTE ---
Discharge Planning/Care Management DCP: assessment: Case received, EMR reviwed and met with pt. Introduced self and role. Pt is found sitting up in bedside chair, looking very alert and comfortable. Pt is an 82 year old female who admitted to care of hospitalist team yesterday afternoon. Inpt admission status: confirmed by UR CRAIG Bolivar. Payer: [employer]. Pt will see pt today. OT order obtained. Pt at this point expects to go home when she is medically ok for same. Will be following prn as POC unfolds to assist with d/c needs as these arise. CM Discharge Assessment Start: 04/18/18 11:52 Freq: Status: Active Protocol: Document 04/18/18 11:53 ITV (Rec: 04/18/18 11:56 ITV [id number]) Discharge Planning Assessment Advance Directives? No Advance Directives on File No History Provided By Patient Medical Record Prior Living Arrangements House Household Members children Comment Pt lives with her son Herminio Pereira and her 16 year old grand -daughter Independent with ADL's Yes Is patient alert and oriented? 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 DME Already Rented / Owned Oxygen Comment uses o2 at night...vendor: Bharathi Barriers to Discharge No Comment expect home when stable for same. Whiteboard Updated in Patient Room with Yes name and ext. # of Tie Tape Machine Operator Review Status In Process Next Review Type Continued Stay Review
--- NOTE | 2018-04-18 12:35 | P.PN_ITS ---
Subjective Date Patient Seen: 04/18/18 Time Patient Seen: 12:30 Interval history: Admitted following worsening of her chest pain fever she was seen in the ER 2 days prior to this admission for a fall from her bed onto a hardwood floor and hitting her right side of the chest she had some chest wall contusions but no actual fracture of ribs that she was sent home with pain medication but got worse after 2 days came back to the ER and the chest x-ray at this time revealed bilateral effusions and on coming up to the floor she started developing chills fever of 101 she is being treated with antibiotics for pneumonia and due to splinting she is much better now Exam Vital Signs (past 8 hours): - 04/18/18 07:35 04/18/18 07:57 04/18/18 08:06 Temperature 97.3 F L Pulse Rate 64 63 Respiratory Rate 18 20 Blood Pressure 118/46 L Pulse Oximetry 96 97 94 04/18/18 11:34 Temperature 97.7 F Pulse Rate 65 Respiratory Rate 20 Blood Pressure 135/60 H Pulse Oximetry 98 Fraction of Inspired Oxygen 21 Oxygen Delivery Method Room Air Oxygen Flow Rate 0 Const General: cooperative, healthy appearing, comfortable and well developed Orientation: alert, awake and oriented x3 HENMT Head: normal to inspection Ears: hearing grossly normal bilaterally Nose: external nose normal Face and sinus: normal facial exam Eyes General: appearance normal, both eyes and all related structures Eyelids: eyelids normal Conjunctivae: conjunctivae normal Sclera: sclerae normal Pupils: PERRL EOM: EOM intact bilaterally Neck Neck: normal visual inspection Thyroid: thyroid normal Chest Other: tenderness Rt cw Resp Effort & Inspection: normal respiratory effort, able to speak in complete sentences, no respiratory distress and no use of accessory muscles Auscultation: crackles (rt base) Cardio Rate: regular rate Rhythm: regular rhythm Heart Sounds: S1 normal and S2 normal GI Inspection: normal to inspection Palpation: soft and no hepatosplenomegaly Skin General: no rashes or lesions noted Neuro General: alert, awake and oriented x3 Cranial Nerves: CN's II-XI intact bilaterally Cognition: normal cognition Speech: speech normal Motor: muscle tone normal throughout Extrem Other: nil edema Psych Appearance: grossly normal Mental Status: mental status grossly normal Mood: congruent mood Affect: normal affect Thought Process: normal Thought Content: normal Judgment: judgment good Objective Labs Result Diagrams: 04/18/18 05:42 08/25/18 05:42 Labs: Laboratory Results - last 24 hr 04/17/18 04/17/18 04/17/18 13:00 13:00 13:00 WBC 11.5 H RBC 5.34 H Hgb 15.0 Hct 44.7 MCV 83.6 MCH 28.1 MCHC 33.6 RDW 15.0 H Plt Count 211 Neut % (Auto) 90.1 H Lymph % (Auto) 4.0 L Rogers % (Auto) 3.3 Eos % (Auto) 1.9 L Baso % (Auto) 0.7 Neut # (Auto) 14772 H Sodium 140 Potassium 4.3 Chloride 101 Carbon Dioxide 27 BUN 24 H Creatinine 0.90 Estimated GFR > 60.0 BUN/Creatinine Ratio 26.7 H Glucose 111 H Lactate Calcium 10.4 H Total Bilirubin 1.0 AST 24 ALT 27 Alkaline Phosphatase 66 B-Natriuretic Peptide 267.0 H Total Protein 6.7 Albumin 4.0 Globulin 2.7 Albumin/Globulin Ratio 1.5 Lipase 44 Procalcitonin 0.18 Urine Color Urine Appearance Urine pH Ur Specific [place] Urine Protein Urine Glucose (UA) Urine Ketones Urine Occult Blood Urine Nitrate Urine Bilirubin Urine Urobilinogen Ur Leukocyte Esterase Urine RBC Urine WBC Ur Squamous Epith Cells Urine Bacteria Ur Culture Indicated? Micro UA Comment 04/17/18 04/17/18 04/18/18 13:00 14:30 05:42 WBC 10.0 RBC 4.74 Hgb 13.4 Hct 39.6 MCV 83.4 MCH 28.2 MCHC 33.8 RDW 14.6 Plt Count 198 Neut % (Auto) 86.0 H Lymph % (Auto) 4.2 L Rogers % (Auto) 4.0 Eos % (Auto) 5.6 H Baso % (Auto) 0.2 Neut # (Auto) 8600 H Sodium Potassium Chloride Carbon Dioxide BUN Creatinine Estimated GFR BUN/Creatinine Ratio Glucose Lactate 1.5 Calcium Total Bilirubin AST ALT Alkaline Phosphatase B-Natriuretic Peptide Total Protein Albumin Globulin Albumin/Globulin Ratio Lipase Procalcitonin Urine Color Yellow Urine Appearance Clear Urine pH 5.0 Ur Specific [place] 1.010 Urine Protein Negative Urine Glucose (UA) Negative Urine Ketones Negative Urine Occult Blood Trace-lysed Urine Nitrate Negative Urine Bilirubin Negative Urine Urobilinogen 0.2 Ur Leukocyte Esterase Negative Urine RBC 0-1/hpf Urine WBC 0-1/hpf Ur Squamous Epith Cells 0-1 /hpf Urine Bacteria Occasional (0-1) Ur Culture Indicated? Cult not indicated Micro UA Comment hospice bereavement coordinator 04/18/18 05:42 WBC RBC Hgb Hct MCV MCH MCHC RDW Plt Count Neut % (Auto) Lymph % (Auto) Rogers % (Auto) Eos % (Auto) Baso % (Auto) Neut # (Auto) Sodium 137 Potassium 4.0 Chloride 100 Carbon Dioxide 30 BUN 18 H Creatinine 0.80 Estimated GFR > 60.0 BUN/Creatinine Ratio 22.5 H Glucose 107 Lactate Calcium 9.3 Total Bilirubin 1.2 AST 29 ALT 35 Alkaline Phosphatase 53 B-Natriuretic Peptide Total Protein 5.6 L Albumin 3.2 L Globulin 2.4 Albumin/Globulin Ratio 1.3 Lipase Procalcitonin Urine Color Urine Appearance Urine pH Ur Specific [place] Urine Protein Urine Glucose (UA) Urine Ketones Urine Occult Blood Urine Nitrate Urine Bilirubin Urine Urobilinogen Ur Leukocyte Esterase Urine RBC Urine WBC Ur Squamous Epith Cells Urine Bacteria Ur Culture Indicated? Micro UA Comment Assessment & Plan Plan: Assessment/Plan Narrative: 1. Bilateral basilar pneumonia as possibly underlying atelectasis atbx and IS 2. Splinting poor inspiration due to pain in the right side chest wall due to the fall and contusion PAIN CONTROL AND IS I SPIROMETRY 3. HISTORY OF CABG HYPOTHYROID ON SUPPLEMENT DVT AND GI PROPHYLAXIS Time Spent With Patient Time with patient: 25 - 35 minutes Quality VTE Deep Vein Thrombosis/Pulmonary Embolism Present on Admission: No
[2018-04-18] MEDS: CEFTRIAXONE 1 GM/50 ML FROZ.PIGGY IV (14:19)
--- NOTE | 2018-04-18 14:37 | PC.NURSE ---
DAY SHIFT NOTE: Patient doing well this shift. Patient ambulates to bathroom with SBA due to high falls risk and medical equipment. Alert and oriented times 3. Tylenol effective for pain in R chest/ribs from fall. Incentive spirometry exercises started and patient needing reminders. Patient remains on O2 NC at this time. Patient drops to 88% on room air. Patient complains of just feeling tired and weak. No acute distress at this time. Call light in reach. Bed alarm on. Will continue to monitor.
--- NOTE | 2018-04-18 14:55 | PT.IPTN ---
Current Diagnoses Pneumonia, unspecified organism (04/17/18) Physical Therapy Treatment Note M2 PT-IP Current Condition Start: 04/18/18 09:31 Freq: NEEDED Status: Active Protocol: Document 04/18/18 08:50 NFW (Rec: 04/18/18 09:58 NFW [id number]) Physical Therapy Current Condition Current Condition Evaluation Date 04/18/18 Treatment Diagnosis Pneumonia and Weakness. Bruising of right chest wall Onset Date 04/17/18 Precautions Other Precautions Bruising of right chest wall. Weight Bearing Status Weight Bearing Status Full Weight Bearing M3 PT-IP Subjective Start: 04/18/18 09:31 Freq: NEEDED Status: Active Protocol: Document 04/18/18 14:55 AB (Rec: 04/18/18 16:19 AB [id number]) Subjective Physical Therapy Visit Type Type Treatment Note Visit Start Time 14:55 Visit Stop Time 15:26 Total Visit Minutes 31 Number of BEEF TAGGER Visits 0 Physical Therapy Visit Comments Patient Comments pt agreeable to do PT Therapy Pain Assessment Pain When Pain Assessed during amb Pain Present Pain Present Pain Reported Location Right Chest Scale Used c/o heaviness of chest w/amb; O2 sat 88-91% AK 70 bpm. resolved with rest M4 PT-IP Mobility and Gait Start: 04/18/18 09:31 Freq: NEEDED Status: Active Protocol: Document 04/18/18 14:55 AB (Rec: 04/18/18 16:19 AB [id number]) PT-Bed Mobility Assessment Supine to Sit Supine to Sit Independent PT-Transfer Assessment Sit to and From Stand Sit to and from Stand Contact Guard Assistance Equipment Transfer Assistive Device Gait Belt Orthotic/Prosthetic Devices or Brace: No Transfers Transfer Destination Toilet Transfer Technique pt ambulated to the toilet Transfer Ability Level of Assist Minimal Assistance Comments Mobility Comments pt stated that she does not use FWW with ambulation. pt ambulated from bed to the toilet without AD and required min A. pt presents with unsteady gait with (+) LOB requiring pt to reach and hold on to johnson and counter. pt educated with safety and importance of using FWW at this time. pt agreed. Gait Assessment Gait Gait Assistance Required: Standby Assistance Contact Guard Assist Distance (Feet) (feet) 60 Able to Maintain Weight Bearing Status Yes During Gait Assistive Devices Assistive Device Gait Belt Front Wheeled Walker Orthotic/Prosthetic Devices or Brace: No Gait Deviations General Gait Pattern Decreased Stride Length Decreased Feet Clearance Factors Limiting Gait Function Factors Limiting Gait Function Decreased Activity Tolerance Decreased Strength Pain Poor Balance Poor Safety Awareness Comments Gait Comments O2 sat maintained at 88-90% with ambulation at 2L/min O2, AK 70 M5 PT-IP Objective Assessments Start: 04/18/18 09:31 Freq: NEEDED Status: Active Protocol: Document 04/18/18 08:50 NFW (Rec: 04/18/18 10:41 NFW [id number]) Orientation Orientation/Cognition Level of Alertness Alert Orientation Name Age Place Language Function Ability No Deficits Noted Memory Description No Deficits Noted Gross Range of Motion Upper Extremity ROM Assessment Within Functional Limits Lower Extremity ROM Assessment Within Functional Limits Strength Upper Extremity Strength Assessment Within Functional Limits Lower Extremity Strength Assessment Within Functional Limits M6 PT-IP Treatment Start: 04/18/18 09:31 Freq: NEEDED Status: Active Protocol: Document 04/18/18 14:55 AB (Rec: 04/18/18 16:19 AB [id number]) Physical Therapy Treatment Education Education Provided Safety M7 PT-IP Assessment and Plan Start: 04/18/18 09:31 Freq: NEEDED Status: Active Protocol: Document 04/18/18 14:55 AB (Rec: 04/18/18 16:19 AB [id number]) PT Summary Assessment and Plan Potential Rehabilitation Potential Good Summary Impairments Strength Balance Transfers Gait Activity Tolerance Progress Towards Goals Slow Progress due to Medical Issues Slow Progress due to Activity Tolerance Assessment Summary pt progressing slowly with mobility but with decrease activity tolerance affecting mobility. pt will likely improve during hospital stay. will continue to assess pt's mobility. Goals Bed Mobility Goal Independent Transfer Goal Independent Gait Goal Independent Gait Distance 200 ft Days to Meet Goals 2 Frequency of Treatment Frequency Of Treatment Twice a Day Treatment Plan Physical Therapy Treatment Plan Transfer Training Gait Training Therapeutic Exercise Balance Retraining Discharge Planning Neuromuscular Re-ed Coordination Retraining Other Recommendations and Next Treatment ambulation with least Focus restrictive device/without AD Recommendations To Nursing Amount of Assist Needed 1 Person Assist Discharge Recommendations PT Discharge Recommendations Home with Assistance Home Health Equipment Needed for Home Before may need FWW if pt is not safe Discharge without AD
[2018-04-18] MEDS: AZITHROMYCIN 500 MG in DEXTROSE 5% IN WATER 250 ML IV (16:18)
--- NOTE | 2018-04-18 16:41 | OT.IP.EVAL ---
Current Diagnoses Pneumonia, unspecified organism (04/17/18) Past Medical History (Last Reviewed 04/17/18 @ 16:18 by Jean Ta DO) Unstable angina (Chronic) Elevated TSH (Chronic) Aneurysm of infrarenal abdominal aorta (Chronic) CAD (coronary artery disease) (Chronic) COPD (chronic obstructive pulmonary disease) with emphysema (Chronic) HTN (hypertension) (Chronic) Hyperlipidemia (Chronic) Valvular heart disease (Chronic) Bilateral carpal tunnel syndrome (Resolved) Surgical History (Last Reviewed 04/17/18 @ 16:18 by Jean Ta DO) H/O hysterectomy with oophorectomy (Resolved) H/O three vessel coronary artery bypass (Resolved) Hx of heart artery stent (Resolved) Status post cholecystectomy (Resolved) Occupational Therapy Inpatient Evaluation/Re-Eval M1 PT/OT-IP Prior Functional Status Start: 04/18/18 09:31 Freq: NEEDED Status: Active Protocol: Document 04/18/18 08:50 NFW (Rec: 04/18/18 09:58 NFW [id number]) Medical Review Prior Functional Status Medical History Reviewed Yes Communication Discussion with nursing pre and post treatment regarding status of patient. Mobility and Gait Patient prior to admittance to patient ambulated without any assistive devices without difficulty. Activities of Daily Living and IADL's Patient prior to admittance was independent in all ADLs, cooking, cleaning, grocery shopping, driving. 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 Social History Household Members children Living Arrangements House Number of Floors (Floors) One Floor Number of Stairs To Enter/Railing? Two steps to enter home, no handrails. 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 Patient uses O2 at night. M1 PT/OT-IP Prior Functional Status Start: 04/18/18 16:18 Freq: NEEDED Status: Active Protocol: Document 04/18/18 16:22 [facility] (Rec: 04/18/18 16:41 [facility] [id number]) Medical Review Prior Functional Status Medical History Reviewed Yes Communication Independent. Mobility and Gait Patient prior to admittance to patient ambulated without any assistive devices without difficulty. Activities of Daily Living and IADL's Patient prior to admittance was independent in all ADLs, cooking, cleaning, grocery shopping, driving. 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 Social History Household Members children Living Arrangements House Number of Floors (Floors) One Floor Number of Stairs To Enter/Railing? Two steps to enter home, no handrails. 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 Patient uses O2 at night. M2 OT-IP Current Condition Start: 04/18/18 16:18 Freq: Status: Active Protocol: Document 04/18/18 16:22 [facility] (Rec: 04/18/18 16:41 [facility] [id number]) Occupational Therapy Current Condition Current Condition Evaluation Date 04/18/18 Treatment Diagnosis PNA, weakness Post Operative Precautions Other Precautions Bruising of right chest wall. Weight Bearing Status Weight Bearing Status Full Weight Bearing M3 OT- IP Subjective and Pain Start: 04/18/18 16:18 Freq: Status: Active Protocol: Document 04/18/18 16:22 [facility] (Rec: 04/18/18 16:41 [facility] [id number]) OT- Subjective Occupational Therapy Visit Type Type Initial Evaluation Visit Start Time 16:00 Visit Stop Time 16:15 Total Visit Minutes 15 Occupational Therapy Visit Comments Patient Comments Pt not wanting to get up as just got up with PT and too tired. Patient/Caregiver Goals Pt would like to go home when medically stable. OT Pain Assessment Pain When Pain Assessed At Rest Pain Present Pain Present Pain Reported M4 OT- IP ADL's Start: 04/18/18 16:18 Freq: Status: Active Protocol: Document 04/18/18 16:22 [facility] (Rec: 04/18/18 16:41 [facility] [id number]) OT ADL-Grooming Comments OT Grooming Comments Pt states able to stand with FWW at sink this morning. OT ADL-Bathing Comments OT Bathing Comments Suggested pt to have shower chair and HHSP. Pt states has a grab bar she uses to help step over the tub to shower. M5 OT- IP IADL's Start: 04/18/18 16:18 Freq: Status: Active Protocol: Document 04/18/18 16:22 [facility] (Rec: 04/18/18 16:41 [facility] [id number]) OT-Instrumental Activities of Daily Living Home Safety Awareness Awareness of Need for Assistance at Home Good Awareness Ability to Problem Solve Emergency Able to Problem Solve Situations Home Safety Comments Pt realizes that she will have son and grand daugther asisst more with IADl needs now. Medication Management Medication Management No Deficits Identified Money Management Money Management No Deficits Identified Meal Preparation Meal Preparation Comments Suggested to sit for meal prep . Elementary School Librarian [employer] Librarian Caregiver Provides Assist M6 OT- IP Functional Cognition Start: 04/18/18 16:18 Freq: Status: Active Protocol: Document 04/18/18 16:22 [facility] (Rec: 04/18/18 16:41 [facility] [id number]) Cognitive Factors Limiting Selfcare Function Cognitive Ability Level of Alertness Alert Patient Orientation Name Age Birthday Month Date Year Day of Week Place Situation Attention Span Ability Capable of Focused Attention Capable of Sustained Attention Ability to Follow Commands Able to Follow Multi-Step Commands Memory Description No Deficits Noted Safety Awareness No Deficits Noted Problem Solving Ability No deficits Noted OT- Vision and Hearing OT- Hearing Assessment OT- Hearing Assessment WFL M7 OT- IP Mobility and Balance Start: 04/18/18 16:18 Freq: Status: Active Protocol: Document 04/18/18 16:22 [facility] (Rec: 04/18/18 16:41 [facility] [id number]) OT-Transfer Assessment Comments Mobility Comments Please see PT eval. OT- Balance Assessment Comments Other Balance Tests/Deviations/Treatment Please see PT eval. : M8 OT- IP Objective Assessments Start: 04/18/18 16:18 Freq: Status: Active Protocol: Document 04/18/18 16:22 [facility] (Rec: 04/18/18 16:41 [facility] [id number]) OT Gross Range of Motion Upper Extremity Range of Motion Assessment Within Functional Limits M9 OT- IP Assessment and Plan Start: 04/18/18 16:18 Freq: Status: Active Protocol: Document 04/18/18 16:22 [facility] (Rec: 04/18/18 16:41 [facility] [id number]) OT Summary Assessment and Plan Potential Rehabilitation Potential Excellent Analytic Complexity at Evaluation Low Summary OT Impairments Pain Strength Balance Functional Mobility Bathing Progress Towards Goals Slow Progress due to Medical Issues Assessment Summary Pt main barrier is activity tolerance, currently on 2L of O2, baseline pt wears o2 at night only. Pt looking to go home with family assist when medically stable. Went over energy conservation information with pt and she had good understanding for all OT needs and suggestions. Goals Grooming Goal Independent Dressing Goal Independent Toileting Goal Independent Bathing Goal Standby Assistance Toilet Transfer Goal Independent Shower Transfer Goal Standby Assistance Days to Meet Goals 5 Frequency of Treatment Frequency Of Treatment Once a Day Treatment Plan OT Treatment Plan ADL Training Functional Mobility Patient/Family Education Discharge Planning Other Treatment Recommendations and Next Activity tolerance with ADl's. Treatment Focus Discharge Recommendations OT Discharge Recommendations Home with Assistance Home Equipment Needs Shower chair, HHSP, FWW
[2018-04-18] MEDS: ATORVASTATIN 20 MG TABLET 40 MG PO (20:45)
[2018-04-18] MEDS: SODIUM CHLORIDE 0.45% 1,000 ML 75 ML IV (21:31)
[2018-04-19] VITALS (14 sets, daily range): BP systolic 154–183; BP diastolic 53–72; PULSE 64–73; RESP 12–22; TEMP 36.2–36.5; O2SAT 95–98
[2018-04-19] MEDS: LEVOTHYROXINE 50 MCG TABLET PO (06:33)
[2018-04-19] MEDS: PANTOPRAZOLE 20 MG TABLET PO (06:33)
[2018-04-19] MEDS: TIOTROPIUM BROMIDE 18 MCG INHALER INH (07:27)
[2018-04-19] MEDS: DOCUSATE 100 MG CAPSULE PO (08:34)
[2018-04-19] MEDS: AMLODIPINE 5 MG TABLET 10 MG PO (08:34)
[2018-04-19] MEDS: ENOXAPARIN 40 MG/0.4 ML SYRINGE SUBCUT (08:35)
[2018-04-19] MEDS: ASPIRIN EC 81 MG TABLET 162 MG PO (08:36)
[2018-04-19] MEDS: SODIUM CHLORIDE 0.45% 1,000 ML 75 ML IV (12:10)
--- NOTE | 2018-04-19 12:30 | PT.IPTN ---
Current Diagnoses Pneumonia, unspecified organism (04/17/18) Physical Therapy Treatment Note M2 PT-IP Current Condition Start: 04/18/18 09:31 Freq: NEEDED Status: Active Protocol: Document 04/18/18 08:50 NFW (Rec: 04/18/18 09:58 NFW [id number]) Physical Therapy Current Condition Current Condition Evaluation Date 04/18/18 Treatment Diagnosis Pneumonia and Weakness. Bruising of right chest wall Onset Date 04/17/18 Precautions Other Precautions Bruising of right chest wall. Weight Bearing Status Weight Bearing Status Full Weight Bearing M3 PT-IP Subjective Start: 04/18/18 09:31 Freq: NEEDED Status: Active Protocol: Document 04/19/18 12:22 [facility]W (Rec: 04/19/18 12:30 NFW [id number]) Subjective Physical Therapy Visit Type Type Treatment Note Visit Start Time 10:15 Visit Stop Time 10:30 Total Visit Minutes 15 Physical Therapy Visit Comments Patient Comments Patient anxious to walk. Therapy Pain Assessment Pain When Pain Assessed During Mobility Pain Present Pain Present Pain Reported Location Right Chest Intensity 2 Scale Used Numeric (1 - 10) Description Aching M4 PT-IP Mobility and Gait Start: 04/18/18 09:31 Freq: NEEDED Status: Active Protocol: Document 04/19/18 12:22 [facility]W (Rec: 04/19/18 12:30 NFW [id number]) PT-Transfer Assessment Sit to and From Stand Sit to and from Stand Contact Guard Assistance Equipment Transfer Assistive Device Gait Belt Orthotic/Prosthetic Devices or Brace: No Transfers Transfer Destination Chair Toilet Transfer Ability Level of Assist Contact Guard Assistance Gait Assessment Gait Gait Assistance Required: Standby Assistance Contact Guard Assist Distance (Feet) (feet) 200 Able to Maintain Weight Bearing Status Yes During Gait Assistive Devices Assistive Device Gait Belt Orthotic/Prosthetic Devices or Brace: No Gait Deviations General Gait Pattern Decreased Stride Length Decreased Feet Clearance Factors Limiting Gait Function Factors Limiting Gait Function Decreased Strength Poor Balance M5 PT-IP Objective Assessments Start: 04/18/18 09:31 Freq: NEEDED Status: Active Protocol: Document 04/18/18 08:50 NFW (Rec: 04/18/18 10:41 NFW [id number]) Orientation Orientation/Cognition Level of Alertness Alert Orientation Name Age Place Language Function Ability No Deficits Noted Memory Description No Deficits Noted Gross Range of Motion Upper Extremity ROM Assessment Within Functional Limits Lower Extremity ROM Assessment Within Functional Limits Strength Upper Extremity Strength Assessment Within Functional Limits Lower Extremity Strength Assessment Within Functional Limits M6 PT-IP Treatment Start: 04/18/18 09:31 Freq: NEEDED Status: Active Protocol: Document 04/19/18 12:22 NFW (Rec: 04/19/18 12:30 NFW [id number]) Physical Therapy Treatment Other Treatments Other Treatment Performed Standing balance and weight shifting activities. M7 PT-IP Assessment and Plan Start: 04/18/18 09:31 Freq: NEEDED Status: Active Protocol: Document 04/19/18 12:22 NFW (Rec: 04/19/18 12:30 NFW [id number]) PT Summary Assessment and Plan Goals Days to Meet Goals 2 Frequency of Treatment Frequency Of Treatment Twice a Day Treatment Plan Physical Therapy Treatment Plan Transfer Training Gait Training Therapeutic Exercise Balance Retraining Discharge Planning Neuromuscular Re-ed Coordination Retraining Recommendations To Nursing Amount of Assist Needed 1 Person Assist Discharge Recommendations PT Discharge Recommendations Home with Assistance Home Health
--- NOTE | 2018-04-19 12:33 | PM.PN.1 ---
Subjective Date Patient Seen: 04/19/18 Time Patient Seen: 10:33 Interval history: THIS PATIENT WAS ADMITTED FOR PNEUMONIA BILATERAL LOWER LOBE ATELECTASIS THE LITTLE EFFUSION SHE HAD BEEN SEEN IN THE ER 2 DAYS PRIOR TO THIS ADMISSION WITH A FALL AT HOME ON A [place] FLOOR WITH RIGHT-SIDED CHEST WALL CONTUSION AFTER GOING HOME SHE WAS IN A LOT OF PAIN AND PROBABLY HAD SPLINTING AND NOT TAKING DEEP ENOUGH BREATHS CAME BACK TO THE ER WITH THE FEELING WEAK DIFFICULTY BREATHING AND HYPOXIA AND WAS FOUND TO HAVE BILATERAL EFFUSIONS ON X-RAY REPORT BUT HAS CRACKLES ON EXAMINATION AND BEING TREATED PNEUMONIA IS IMPROVING ON OXYGEN SUPPLEMENTATION INCENTIVE SPIROMETRY AND ANTIBIOTICS BUT IS STILL WEAK TO BE ABLE TO BE DISCHARGED HOME TODAY Exam Vital Signs (past 8 hours): - 04/19/18 05:16 04/19/18 07:00 04/19/18 07:29 Temperature 97.5 F L Pulse Rate 70 71 Respiratory Rate 20 16 Blood Pressure 157/66 H Pulse Oximetry 96 96 96 04/19/18 07:32 04/19/18 08:36 Temperature 97.4 F L Pulse Rate 66 Respiratory Rate 18 Blood Pressure 160/72 H Pulse Oximetry 95 96 Fraction of Inspired Oxygen 28 Oxygen Delivery Method Nasal Cannula Oxygen Flow Rate 2 Const General: cooperative, healthy appearing, comfortable and well developed Orientation: alert, awake and oriented x3 HENMT Head: normal to inspection, normocephalic and atraumatic Ears: hearing grossly normal bilaterally Nose: external nose normal Face and sinus: normal facial exam Mouth: oral mucosae normal Eyes General: appearance normal, both eyes and all related structures Eyelids: eyelids normal Conjunctivae: conjunctivae normal Sclera: sclerae normal EOM: EOM intact bilaterally Neck Neck: normal visual inspection, full ROM and No JVD Thyroid: thyroid normal Resp Effort & Inspection: normal respiratory effort, able to speak in complete sentences, no respiratory distress and no use of accessory muscles Auscultation: crackles (RT BASE) Cardio Palpation: normal PMI Rate: regular rate Rhythm: regular rhythm Heart Sounds: S1 normal and S2 normal GI Inspection: normal to inspection Palpation: soft and no hepatosplenomegaly Skin General: no rashes or lesions noted Neuro General: alert, awake, oriented x3 and no meningeal signs Cranial Nerves: CN's II-XI intact bilaterally Cognition: normal cognition Speech: speech normal Motor: muscle tone normal throughout Extrem Other: NIL EDEMA Psych Appearance: grossly normal Mental Status: mental status grossly normal Speech and Movement: speech and movement normal Mood: congruent mood Affect: normal affect Attitude: cooperative Thought Process: normal Thought Content: normal Judgment: judgment good Objective Labs Result Diagrams: 04/18/18 05:42 04/18/18 05:42 Assessment & Plan Plan: Assessment/Plan Narrative: 1. PNEUMONIA LOWER LOBE RIGHT 2.BILATERAL LOWER LOBE ATELECTASIS PROBABLY DUE TO SPLINTING FROM PAIN CONTUSION OF CHEST WALL 3. GENERAL FATIGUE AND WEAKNESS 4. HYPOTHYROID ON SUPPLEMENT WILL CHECK TSH TO SEE IF THAT IS THE CAUSE OF GENERAL FATIGUE Time Spent With Patient Time with patient: 25 - 35 minutes Quality VTE Deep Vein Thrombosis/Pulmonary Embolism Present on Admission: No
[2018-04-19] MEDS: CEFTRIAXONE 1 GM/50 ML FROZ.PIGGY IV (14:04)
--- NOTE | 2018-04-19 15:16 | PT.IPTN ---
Current Diagnoses Pneumonia, unspecified organism (04/17/18) Physical Therapy Treatment Note M2 PT-IP Current Condition Start: 04/18/18 09:31 Freq: NEEDED Status: Active Protocol: Document 04/18/18 08:50 NFW (Rec: 04/18/18 09:58 NFW [id number]) Physical Therapy Current Condition Current Condition Evaluation Date 04/18/18 Treatment Diagnosis Pneumonia and Weakness. Bruising of right chest wall Onset Date 04/17/18 Precautions Other Precautions Bruising of right chest wall. Weight Bearing Status Weight Bearing Status Full Weight Bearing M3 PT-IP Subjective Start: 04/18/18 09:31 Freq: NEEDED Status: Active Protocol: Document 04/19/18 14:30 [facility] (Rec: 04/19/18 15:16 [facility] [id number]) Subjective Physical Therapy Visit Type Type Treatment Note Visit Start Time 14:30 Visit Stop Time 14:53 Total Visit Minutes 23 Number of TOBACCO EDUCATOR Visits 1 Physical Therapy Visit Comments Patient Comments Pt willing to do therapy. Therapy Pain Assessment Pain When Pain Assessed During Mobility Pain Present Pain Present Pain Reported Location Right Chest Intensity 2 Scale Used Numeric (1 - 10) Description Aching M4 PT-IP Mobility and Gait Start: 04/18/18 09:31 Freq: NEEDED Status: Active Protocol: Document 04/19/18 14:30 [facility] (Rec: 04/19/18 15:16 [facility] [id number]) PT-Transfer Assessment Sit to and From Stand Sit to and from Stand Contact Guard Assistance Equipment Transfer Assistive Device Gait Belt Orthotic/Prosthetic Devices or Brace: No Transfers Transfer Destination Chair Toilet Transfer Ability Level of Assist Contact Guard Assistance Gait Assessment Gait Gait Assistance Required: Standby Assistance Contact Guard Assist Distance (Feet) (feet) 200 Able to Maintain Weight Bearing Status Yes During Gait Assistive Devices Assistive Device Gait Belt Orthotic/Prosthetic Devices or Brace: No Gait Deviations General Gait Pattern Decreased Stride Length Decreased Feet Clearance Factors Limiting Gait Function Factors Limiting Gait Function Decreased Strength Poor Balance Comments Gait Comments Pt maintained O2 sat at 92% on RA but did c/o heavy chest while using BR, washing hands and after ambulating. M5 PT-IP Objective Assessments Start: 04/18/18 09:31 Freq: NEEDED Status: Active Protocol: Document 04/18/18 08:50 NFW (Rec: 08/25/18 10:41 NFW [id number]) Orientation Orientation/Cognition Level of Alertness Alert Orientation Name Age Place Language Function Ability No Deficits Noted Memory Description No Deficits Noted Gross Range of Motion Upper Extremity ROM Assessment Within Functional Limits Lower Extremity ROM Assessment Within Functional Limits Strength Upper Extremity Strength Assessment Within Functional Limits Lower Extremity Strength Assessment Within Functional Limits M6 PT-IP Treatment Start: 04/18/18 09:31 Freq: NEEDED Status: Active Protocol: Document 04/19/18 14:30 [facility] (Rec: 04/19/18 15:16 [facility] [id number]) Physical Therapy Treatment Other Treatments Other Treatment Performed Standing balance and weight shifting activities. M7 PT-IP Assessment and Plan Start: 04/18/18 09:31 Freq: NEEDED Status: Active Protocol: Document 04/19/18 14:30 [facility] (Rec: 04/19/18 15:16 [facility] [id number]) PT Summary Assessment and Plan Summary Impairments Strength Balance Transfers Gait Activity Tolerance Progress Towards Goals Progressing Toward Goals Assessment Summary Pt increased gait distance with minor c/o SOB and pain in right upper quadrant. Goals Bed Mobility Goal Independent Transfer Goal Independent Gait Goal Independent Gait Distance 200 ft Days to Meet Goals 2 Frequency of Treatment Frequency Of Treatment Twice a Day Treatment Plan Physical Therapy Treatment Plan Transfer Training Gait Training Therapeutic Exercise Balance Retraining Discharge Planning Neuromuscular Re-ed Coordination Retraining Other Recommendations and Next Treatment ambulation with least Focus restrictive device/without AD Recommendations To Nursing Amount of Assist Needed 1 Person Assist Discharge Recommendations PT Discharge Recommendations Home with Assistance Home Health
[2018-04-19] MEDS: AZITHROMYCIN 500 MG in DEXTROSE 5% IN WATER 250 ML IV (16:20)
[2018-04-19] MEDS: ATORVASTATIN 20 MG TABLET 40 MG PO (20:15)
--- NOTE | 2018-04-19 21:17 | PC.NURSE ---
SHIFT NOTE Pt states feeling much better today. able to wean to room air (home baseline is 2L O2 for sleep only). pt states R rib pain has decreased and denies need for PRN tylenol. tele monitoring shows SR/BBB. call light within reach.
[2018-04-20] MEDS: SODIUM CHLORIDE 0.45% 1,000 ML 75 ML IV (01:44)
--- NOTE | 2018-04-20 01:56 | PC.NURSE ---
Alert/oriented. Denies pain/discomfort/ IV fluids infusing per orders. Bed alarm on and call light within reach. fall precautions in place.
[2018-04-20 05:34] VITALS: BP 174/63; PULSE 78; RESP 20; TEMP 36.3; O2SAT 96
[2018-04-20] MEDS: PANTOPRAZOLE 20 MG TABLET PO (05:48)
[2018-04-20] MEDS: LEVOTHYROXINE 50 MCG TABLET PO (05:48)
[2018-04-20 07:27] LABS: Free T4, Direct Thyroxine 1.01 ng/dL (0.78-2.19)
[2018-04-20 07:56] VITALS: BP 191/74; PULSE 66; RESP 16; TEMP 36.3; O2SAT 98
[2018-04-20] MEDS: ALBUTEROL 2.5 MG/3 ML NEB (ADULT) INH (08:36)
[2018-04-20] MEDS: TIOTROPIUM BROMIDE 18 MCG INHALER INH (08:36)
[2018-04-20 08:39] VITALS: O2SAT 96
[2018-04-20] MEDS: ASPIRIN EC 81 MG TABLET 162 MG PO (09:04)
[2018-04-20] MEDS: LISINOPRIL 20 MG TABLET PO (09:04)
[2018-04-20] MEDS: ENOXAPARIN 40 MG/0.4 ML SYRINGE SUBCUT (09:05)
[2018-04-20] MEDS: AMLODIPINE 5 MG TABLET 10 MG PO (09:05)
--- NOTE | 2018-04-20 10:21 | PT.IPTN ---
Current Diagnoses Pneumonia, unspecified organism (04/17/18) Physical Therapy Treatment Note Physical Therapy Current Condition Current Condition Evaluation Date 04/18/18 Treatment Diagnosis Pneumonia and Weakness. Bruising of right chest wall Onset Date 04/17/18 Precautions Other Precautions Bruising of right chest wall. Weight Bearing Status Weight Bearing Status Full Weight Bearing Subjective Physical Therapy Visit Type Type Treatment Note Visit Start Time 09:40 Visit Stop Time 10:09 Total Visit Minutes 29 Physical Therapy Visit Comments Patient Comments Pt reports sleeping well, is feeling better, less pain in rib cage. Therapy Pain Assessment Pain Present Pain Present Pain Reported Location Right Chest Description Aching Pressure PT-Bed Mobility Assessment Supine to Sit Supine to Sit Independent Sit to Supine Sit to Supine Independent Scooting Scooting to Edge of Bed Independent PT-Transfer Assessment Sit to and From Stand Sit to and from Stand Standby Assistance Equipment Transfer Assistive Device Gait Belt Orthotic/Prosthetic Devices or Brace: No Transfer Ability Level of Assist Standby Assistance Gait Assessment Gait Gait Assistance Required: Standby Assistance Distance (Feet) (feet) 200 Assistive Devices Assistive Device Gait Belt Gait Deviations General Gait Pattern Within Normal Limits Factors Limiting Gait Function Factors Limiting Gait Function Decreased Activity Tolerance Stair Climbing Assessment Evaluation Level of Assist On Stairs Standby Assistance Devices Stair Climbing Assistive Devices Left Railing Technique/Endurance Stair Climbing Direction Ascend and Descend Stair Climbing Technique Step Over Step Number of Steps Climbed 3 Query Text: PT-Balance Assessment Sitting Balance and Reactions Static Sitting Balance Ability Normal Dynamic Sitting Balance Ability Normal Standing Balance and Reactions Static Standing Balance Ability Normal Dynamic Standing Balance Ability Good Physical Therapy Treatment Education Education Provided Safety Other Treatments Other Treatment Performed Pt instructed on pursed lip breathing techniques while walking and when needing to recover after walking or activity. PT Summary Assessment and Plan Potential Rehabilitation Potential Excellent Status of Condition at Evaluation Evolving Summary Impairments Activity Tolerance Progress Towards Goals Progressing Toward Goals Assessment Summary Pt able to walk 200ft without an AD and was quite stable the entire time, no LOBs or gait abnormalities other than being slow. Pt also able to aschend /descend 3 steps with SBA, again, without any LOB. All activity was completed on RA with sats dropping from 94% at rest to 90% with activity. Pt is making great progress and is still anticipated to be safe to discharge home once medically ready. Goals Bed Mobility Goal Independent Transfer Goal Independent Gait Goal Independent Gait Distance 200 ft Days to Meet Goals 1 Frequency of Treatment Frequency Of Treatment Twice a Day Treatment Plan Physical Therapy Treatment Plan Gait Training Discharge Planning Other Recommendations and Next Treatment continue walking/activity Focus tolerance progression while monitoring SpO2 Recommendations To Nursing Amount of Assist Needed Standby Assistance Discharge Recommendations PT Discharge Recommendations Home with Assistance Home Health Equipment Needed for Home Before does not need any mobility Discharge equipment at home
[2018-04-20 10:55] VITALS: O2SAT 97
--- NOTE | 2018-04-20 11:35 | OT.IP.TRT ---
Current Diagnoses Pneumonia, unspecified organism (04/17/18) Occupational Therapy Treatment Note M2 OT-IP Current Condition Start: 04/18/18 16:18 Freq: Status: Active Protocol: Document 04/18/18 16:22 [facility] (Rec: 04/18/18 16:41 [facility] [id number]) Occupational Therapy Current Condition Current Condition Evaluation Date 04/18/18 Treatment Diagnosis PNA, weakness Post Operative Precautions Other Precautions Bruising of right chest wall. Weight Bearing Status Weight Bearing Status Full Weight Bearing M3 OT- IP Subjective and Pain Start: 04/18/18 16:18 Freq: Status: Active Protocol: Document 04/20/18 11:29 [facility] (Rec: 04/20/18 11:35 [facility] [id number]) OT- Subjective Occupational Therapy Visit Type Type Treatment Note Visit Start Time 10:45 Visit Stop Time 11:15 Total Visit Minutes 30 Occupational Therapy Visit Comments Patient Comments Pt wanting to get up to shower . OT Pain Assessment Pain When Pain Assessed At Rest Pain Present Pain Present Denied Pain M4 OT- IP ADL's Start: 04/18/18 16:18 Freq: Status: Active Protocol: Document 04/20/18 11:29 [facility] (Rec: 04/20/18 11:35 [facility] [id number]) OT ADL-Grooming General Evaluation Grooming Ability Independent Comments OT Grooming Comments Able to stand at sink. OT ADL-Dressing General Eval Upper Body Dressing Ability Standby Assistance Comments OT Dressing Comments SBA while standing to pull up brief over hips. OT ADL-Toileting General Evaluation Toileting Ability Independent OT ADL-Bathing Bathing Type Bathing Type Shower General Evaluation Bathing Ability Standby Assistance Devices Bathing Equipment Shower Chair with Arms Comments OT Bathing Comments VC to sit during the shower as pt tiring. O2 on RA form 91- 95%. M5 OT- IP IADL's Start: 04/18/18 16:18 Freq: Status: Active Protocol: Document 04/18/18 16:22 [facility] (Rec: 04/18/18 16:41 [facility] [id number]) OT-Instrumental Activities of Daily Living Home Safety Awareness Awareness of Need for Assistance at Home Good Awareness Ability to Problem Solve Emergency Able to Problem Solve Situations Home Safety Comments Pt realizes that she will have son and grand daugther asisst more with IADl needs now. Medication Management Medication Management No Deficits Identified Money Management Money Management No Deficits Identified Meal Preparation Meal Preparation Comments Suggested to sit for meal prep . [employer] Caregiver Provides Assist M6 OT- IP Functional Cognition Start: 04/18/18 16:18 Freq: Status: Active Protocol: Document 04/18/18 16:22 [facility] (Rec: 04/18/18 16:41 [facility] [id number]) Cognitive Factors Limiting Selfcare Function Cognitive Ability Level of Alertness Alert Patient Orientation Name Age Birthday Month Date Year Day of Week Place Situation Attention Span Ability Capable of Focused Attention Capable of Sustained Attention Ability to Follow Commands Able to Follow Multi-Step Commands Memory Description No Deficits Noted Safety Awareness No Deficits Noted Problem Solving Ability No deficits Noted OT- Vision and Hearing OT- Hearing Assessment OT- Hearing Assessment WFL M7 OT- IP Mobility and Balance Start: 04/18/18 16:18 Freq: Status: Active Protocol: Document 04/20/18 11:29 [facility] (Rec: 04/20/18 11:35 [facility] [id number]) OT- Bed Mobility Assessment Rolling Type of Rolling Roll to Left Supine to Sit Supine to Sit Assist Independent Sit to Supine Sit to Supine Assist Independent OT-Transfer Assessment Sit to and From Stand Sit to and from Stand Independent Transfers Transfer Ability Independent Technique Transfer Destination Bed Shower Stall Toilet Transfer Technique Stand Step Pivot Devices Transfer Assistive Devices None Comments Mobility Comments Pt close CBA while stepping over threshold of shower otherwise independent in the room with no device. OT- Balance Assessment Sitting Balance and Reactions Static Sitting Balance Ability Normal Dynamic Sitting Balance Ability Normal Standing Balance and Reactions Static Standing Balance Ability Normal Dynamic Standing Balance Ability Good M8 OT- IP Objective Assessments Start: 04/18/18 16:18 Freq: Status: Active Protocol: Document 04/18/18 16:22 [facility] (Rec: 04/18/18 16:41 [facility] [id number]) OT Gross Range of Motion Upper Extremity Range of Motion Assessment Within Functional Limits M9 OT- IP Assessment and Plan Start: 04/18/18 16:18 Freq: Status: Active Protocol: Document 04/20/18 11:29 [facility] (Rec: 04/20/18 11:35 [facility] [id number]) OT Summary Assessment and Plan Summary Assessment Summary Pt doing well and able to maintain O2 above 90% on RA even during showering. Pt looking to go home this PM with family to assist. Suggested to pt not to go to [place] for her grand daughter 's wedding as still not back to baseline for activity tolerance and now needing more rest breaks. Goals Days to Meet Goals 1 Frequency of Treatment Frequency Of Treatment Once a Day Treatment Plan OT Treatment Plan Patient/Family Education Discharge Planning Discharge Recommendations OT Discharge Recommendations Home with Assistance Home Equipment Needs Shower chair, [facility]
[2018-04-20 12:00] VITALS: BP 152/60; PULSE 64; RESP 18; TEMP 36.9; O2SAT 96
--- NOTE | 2018-04-20 12:01 | PT.IPTN ---
Current Diagnoses Pneumonia, unspecified organism (04/17/18) Physical Therapy Discharge Note Pt now has discharge orders. Pt is safe to discharge home without AD, but will benefit from HHPT once at home. Pt has reached her acute PT goals. Pt is safe to continue mobilizing with nursing staff until discharge, and pt has no other acute PT needs. Acute PT will sign off. RALPH YooT
--- NOTE | 2018-04-20 12:28 | P.DS_ITS ---
History of Present Illness Chief complaint: Multiple Complaints Narrative: VERY PLEASANT 82-YEAR-OLD FEMALE ADMITTED FROM THE ER SHE PRESENTED TO THE ER BECAUSE OF NOT FEELING WELL IN GENERAL FEELING WEAK SHE WAS RECENTLY IN THE ER 2 DAYS AGO HAVING FALLEN OUT OF HER BED ONTO A HARDWOOD FLOOR AND HEARD IN THE RIGHT SIDE OF HER CHEST AND ER WORKUP AT THAT TIME DID NOT REVEAL ANY FRACTURES A PNEUMONIA AND SHE WAS SENT HOME WITH MEDICATION FOR PAIN AND TODAY SHE CAME BACK FEELING MUCH WORSE AND UNABLE TO TAKE DEEP BREATHS AND PAIN IN THE RIGHT RIBS WORKUP IN THE ER THIS TIME REVEALED BILATERAL SHADOWING IN THE LOWER PART OF THE LUNGS PATIENT DENIES ANY COUGH PHLEGM OR WHEEZING RIGHT AFTER SHE WAS ADMITTED INTO THE HOSPITAL ON THE FLOOR SHE STARTED DEVELOPING FEVER AND RIGORS AND CHILLS FEVER OF 101 PATIENT IS RESTING COMFORTABLY NOW AFTER TYLENOL AND PAIN MEDS Discharge Providers Date of admission: 04/17/18 13:51 Primary care physician: Allie Fleming MD Consults: 04/17/18 14:49 Consult to Discharge Planning Routine Comment: Consult to Physical Therapy Evaluate & Treat Comment: Physician Instructions: Evaluate and Treat 04/18/18 12:05 Consult to Occupational Therapy Evaluate & Treat Comment: Physician Instructions: Evaluate and treat 04/19/18 17:26 Consult to Physical Therapy Evaluate & Treat Comment: Physician Instructions: Evaluate and Treat Consult to Industrial Custodian Routine Comment: DISCHARGE PLANNING Discharge provider: Veronica Monet MD Summary Discharge Diagnosis: 1. Community-acquired pneumonia improved oxygenation on antibiotics and incentive spirometry 2. Right-sided chest wall contusion after a fall at home 3. General fatigue hypothyroid on supplement probably under supplemented the TSH is slightly elevated she needs to increase dose of thyroid supplement 4. Hypertension difficult to control the need to continue her lisinopril and Norvasc 5. Home oxygen currently at [facility] Hospital Course: This very pleasant lady was admitted 2 days after she was 1st seen in the ER initial presentation in the ER was a fall at home slipping out of bed and landing on the hardwood floor on the right side of her chest the 2 days later she came back to the ER feeling short of breath and and workup at that time revealed bilateral lower lobes atelectasis versus pleural effusion she was treated for pneumonia most likely due to splinting as she developed fever on admission to the hospital with pain control incentive spirometry antibiotics she improved and she is now feeling much better she also has issues with control of her blood pressures she had been on 40 mg of lisinopril at home and 10 mg of Norvasc she needs to continue that since she was complaining of general fatigue TSH was checked at somewhat high at 5.5 and so we suggest that she go back on her 75 mcg of thyroid supplement somehow she she states she is not taking 50 mcg were she has to 75 mcg pills at home Status at Discharge Functional status at discharge: independent ambulation Overall status at discharge: patient is back to baseline Time Spent with Patient Greater than 30 minutes Exam Vital Signs (past 8 hours): - 04/20/18 05:34 04/20/18 07:56 04/20/18 08:39 Temperature 97.4 F L 97.4 F L Pulse Rate 78 66 Respiratory Rate 20 16 Blood Pressure 174/63 H 191/74 H Pulse Oximetry 96 98 96 04/20/18 10:55 Temperature Pulse Rate Respiratory Rate Blood Pressure Pulse Oximetry 97 Fraction of Inspired Oxygen 28 Oxygen Delivery Method Nasal Cannula Oxygen Flow Rate 2 Objective Labs Result Diagrams: 04/18/18 05:42 04/18/18 05:42 Labs: Laboratory Results - last 24 hr 04/20/18 05:55 TSH 5.40 H Free T4 1.01 Discharge Plan Discharge Plan Patient Disposition: Home Provider Discharge Instructions Diet: Regular Activity: ad jose Oxygen: as prior to admission NOCTE Discharge Data Primary Care Provider: Allie Fleming Attending Provider: Praneeth Monet Admit Date/Time: 04/17/18 13:51 Quality VTE Deep Vein Thrombosis/Pulmonary Embolism Present on Admission: No
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
--- NOTE | 2018-04-20 15:49 | PC.NURSE ---
Estephania villaseñor note: Patient discharged from [facility] home via WC with granddaughter and Torito LARIOS. Patient in stable condition, alert, pleasant and happy to go home.
== END 2018-04-20 15:51 | disposition home or self-care (01) | DRG 194 ==
LOC: ED 13:42 → AC 14:49
PROVIDERS: Admitting Provider Internal Medicine; Emergency Provider Emergency Medicine; PCP Internal Medicine; Visit Provider Internal Medicine
DX: J18.9 Pneumonia, unspecified organism (principal); J98.11 Atelectasis; I38 Endocarditis, valve unspecified; R07.89 Other chest pain; S20.219A Contusion of unspecified front wall of thorax, initial encounter; W06.XXXA Fall from bed, initial encounter; Y92.003 Bedroom of unspecified non-institutional (private) residence as the place of occurrence of the external cause; E03.9 Hypothyroidism, unspecified; R53.83 Other fatigue; I71.4 Abdominal aortic aneurysm, without rupture; I25.10 Atherosclerotic heart disease of native coronary artery without angina pectoris; J44.9 Chronic obstructive pulmonary disease, unspecified; I10 Essential (primary) hypertension; E78.5 Hyperlipidemia, unspecified; Z95.1 Presence of aortocoronary bypass graft; Z99.81 Dependence on supplemental oxygen
CPT/HCPCS: 36415; 71045; 71101; 80053; 81001; 83605; 83690; 83880; 84145; 84439; 84443; 85025; 87040; 87086; 93005; 93010; 94640; 94760; 94762; 96360; 97116; 97161; 97165; 97530; 97535; 99282; 99283; 99285; J1650; J7050; J7613

== ENCOUNTER 2018-07-07 12:40 | Emergency (ER) | payer OTHER, SELFPAY ==
[2018-04-17 15:43] VITALS: BMI 20.8
[2018-07-07] VITALS (9 sets, daily range): BP systolic 126–161; BP diastolic 66–87; PULSE 88–112; RESP 14–30; TEMP 36.3; O2SAT 96–100
--- NOTE | 2018-07-07 12:55 | ED.CHESTPAIN ---
HPI - Chest Pain General Chief Complaint: Chest Pain Stated Complaint: chest feels tight Time Seen by Provider: 07/07/18 12:55 Source: patient Mode of arrival: ambulatory Limitations: no limitations History of Present Illness HPI narrative: Patient is an 82-year-old female who presents with chest pain and shortness of breath. She has a history of COPD, CHF and coronary artery disease. She says she has been out of her oxygen which she only wears at night for the last few nights. His today she was at [employer] where she works progressively had chest discomfort. She denies any radiation she feels like she has a cough which she can't get anything up. She has been taking Mucinex no relief. She does have an inhaler which she has not been using. She denies fever or chills. MD complaint: chest pain Related Data Home Medications Medication Instructions Recorded Confirmed tiotropium bromide [Spiriva with 1 puff INH DAILY #0 04/28/17 07/07/18 HandiHaler] aspirin 81 mg PO QDAY #0 07/11/17 07/07/18 lisinopril 40 mg PO DAILY 04/19/18 07/07/18 albuterol sulfate [Ventolin HFA] 2 puff INHALATION Q4H PRN 07/07/18 07/07/18 fluticasone [Flonase Allergy 1 spray INTRANASAL BID PRN 07/07/18 07/07/18 Relief] fluticasone-salmeterol [Advair 1 inh INHALATION BID 07/07/18 07/07/18 Diskus] ipratropium bromide [Atrovent HFA] 2 puff INHALATION QID 07/07/18 07/07/18 levothyroxine 75 mcg PO DAILY 07/07/18 07/07/18 multivitamin 1 tab PO DAILY 07/07/18 07/07/18 nitroglycerin [Nitrostat] 0.4 mg SUBLINGUAL Q5-15M PRN 07/07/18 07/07/18 omega 2-vcx-pui-fish oil [Fish Oil] 1,000 mg PO DAILY 07/07/18 07/07/18 prednisone 1 dose PO DIRECTED 07/07/18 07/07/18 triamterene-hydrochlorothiazid 1 tab PO DAILY 07/07/18 07/07/18 vitamin E 400 unit PO DAILY 07/07/18 07/07/18 Previous Rx's Medication Instructions Recorded atorvastatin [Lipitor] 40 mg PO BEDTIME #180 tab 04/20/18 Allergies Allergy/AdvReac Type Severity Reaction Status Date / Time acarbose Allergy Intermediate Abdominal Verified 07/07/18 15:35 Pain amlodipine Allergy Intermediate Verified 07/07/18 15:35 chlorthalidone Allergy Intermediate Redness of Verified 07/07/18 15:35 Skin doxazosin [From Cardura] Allergy Intermediate Rash Verified 07/07/18 15:35 doxycycline Allergy Intermediate Rash Verified 07/07/18 15:35 gemfibrozil Allergy Intermediate Rash Verified 07/07/18 15:35 levofloxacin Allergy Intermediate Rash Verified 07/07/18 15:35 losartan Allergy Intermediate Rash Verified 07/07/18 15:35 metoprolol Allergy Intermediate Verified 07/07/18 15:35 montelukast [From Singulair] Allergy Intermediate Difficulty Verified 07/07/18 15:35 Breathing nifedipine Allergy Intermediate Chills Verified 07/07/18 15:35 Sulfa (Sulfonamide Allergy Intermediate rash Verified 04/24/18 17:59 Antibiotics) sulfamethoxazole Allergy Intermediate Rash Verified 07/07/18 15:35 [From Bactrim] trimethoprim [From Bactrim] Allergy Intermediate Rash Verified 07/07/18 15:35 budesonide [From Symbicort] Allergy Mild Anxiety Verified 07/07/18 15:35 carvedilol Allergy Mild Rash Verified 07/07/18 15:35 choline fenofibrate Allergy Mild Gastrointestinal Verified 07/07/18 15:35 [From Trilipix] Upset formoterol [From Symbicort] Allergy Mild Anxiety Verified 07/07/18 15:35 Review of Systems Review of Systems All systems reviewed & are unremarkable except as noted in HPI and below Constitutional Denies chills, Denies fever(s), Denies lethargy and Denies weakness Eyes Denies change in vision, Denies eye discharge, Denies irritation and Denies loss of vision Cardiovascular Reports as per HPI Respiratory Reports as per HPI Gastrointestinal Gastrointestinal: Denies abdominal pain, Denies change in bowel habits, Denies diarrhea, Denies nausea and Denies vomiting Genitourinary Denies hematuria, Denies flank pain, Denies urinary incontinence and Denies urinary urgency Musculoskeletal Denies back pain, Denies muscle weakness, Denies numbness and Denies tingling Integumentary/Breasts Denies pruritus, Denies erythema, Denies rash and Denies wounds Neurologic Denies loss of vision, Denies numbness, Denies tingling and Denies weakness [facility] Medical History Unstable angina (Chronic) Elevated TSH (Chronic) Aneurysm of infrarenal abdominal aorta (Chronic) CAD (coronary artery disease) (Chronic) COPD (chronic obstructive pulmonary disease) with emphysema (Chronic) HTN (hypertension) (Chronic) Hyperlipidemia (Chronic) Valvular heart disease (Chronic) Bilateral carpal tunnel syndrome (Resolved) Surgical History H/O hysterectomy with oophorectomy (Resolved) H/O three vessel coronary artery bypass (Resolved) Hx of heart artery stent (Resolved) Status post cholecystectomy (Resolved) Social History household members: children Smoking Status: Former smoker alcohol intake: never Exam Initial Vital Signs Initial Vital Signs: Vital Signs Temperature 97.4 F L 07/07/18 12:53 Pulse Rate 88 07/07/18 12:53 Respiratory Rate 14 07/07/18 12:53 Blood Pressure 161/74 H 07/07/18 12:53 Pulse Oximetry 98 07/07/18 12:53 GENERAL: Well-appearing elderly female is out acute distress. Speaking in full sentences without difficulty HEENT: Head atraumatic,EOMI, pupils reactiv CARDIOVASCULAR: Regular rate and rhythm without murmurs, rubs or gallops. RESPIRATORY: Decreased breath sounds bilaterally no wheezing rales or rhonchi ABDOMEN: Soft, nontender. Normoactive bowel sounds all 4 quadrants. No guarding or rebound. EXTREMITIES: Normal range of motion, no clubbing or edema. Neurovascularly intact NEUROLOGICAL: Alert and oriented x4.Normal gait and speech SKIN: Warm, dry, no laceration, no petechiae, no rashes or lesions. Course Orders Ordered: ED Orders 07/07/18 12:53 B Type Natriuretic Peptide Stat Complete Blood Count AUTO DIFF Stat Comprehensive Metabolic Panel Stat Magnesium Stat Procalcitonin Stat Troponin & CK Cardiac Panel Stat 07/07/18 13:05 Consult to Respiratory Therapy Evaluate & Treat 07/07/18 13:06 XR chest 1V Stat Discontinued Medications Albuterol/Ipratropium (Duoneb) 3 ml INH NOW ONE Stop: 07/07/18 13:06 Last Admin: 07/07/18 13:18 Dose: 3 ml Albuterol/Ipratropium (Duoneb) 3 ml INH NOW ONE Stop: 07/07/18 13:24 Last Admin: 07/07/18 13:24 Dose: 3 ml Aspirin (Aspirin Chew) 324 mg PO NOW ONE Stop: 07/07/18 13:18 Last Admin: 07/07/18 13:18 Dose: 324 mg Heparin Sodium (Porcine) (Heparin) 3,400 unit 60 unit/kg (3400 unit) IV NOW ONE Stop: 07/07/18 13:59 Last Admin: 07/07/18 14:16 Dose: 3,400 unit Heparin Sodium/Dextrose (Heparin Drip) 25,000 unit in 500 mls @ 13.717 mls/hr IV CONT ROLANDA; Protocol Last Admin: 07/07/18 14:17 Dose: 12 units/kg/hr, 13.717 mls/hr Methylprednisolone (Solu-Medrol 125 Mg Vial) 125 mg IV NOW ONE Stop: 07/07/18 13:06 Last Admin: 07/07/18 13:17 Dose: 125 mg Nitroglycerin (Nitrostat) 0.4 mg SL NOW ONE Stop: 07/07/18 15:13 Last Admin: 07/07/18 15:13 Dose: 0.4 mg Vital Signs - 8 hr 07/07/18 12:53 07/07/18 13:15 07/07/18 13:25 Temperature 97.4 F L Pulse Rate 88 Respiratory Rate 14 Blood Pressure 161/74 H Blood Pressure [Left Arm] Pulse Oximetry 98 97 99 07/07/18 13:47 07/07/18 14:30 07/07/18 15:30 Temperature Pulse Rate 96 H 107 H 110 H Respiratory Rate 20 24 23 Blood Pressure Blood Pressure [Left Arm] 145/66 H 149/66 H 126/76 Pulse Oximetry 100 98 98 07/07/18 16:31 07/07/18 17:30 07/07/18 19:02 Temperature Pulse Rate 112 H 111 H 105 H Respiratory Rate 30 H 28 H 25 H Blood Pressure Blood Pressure [Left Arm] 150/73 H 133/83 155/87 H Pulse Oximetry 96 98 MDM - Chest Pain Lab Data Attestation: I reviewed the patient's lab results. Result diagrams: 07/07/18 12:53 07/07/18 12:53 Lab Results 07/07/18 07/07/18 07/07/18 Range/Units 12:53 12:53 12:53 WBC 12.6 H (4.5-11.0) X10^3/uL RBC 5.39 H (4.0-5.2) X10^6/uL Hgb 15.6 (12.0-16.0) g/dL Hct 46.1 H (36-46) % MCV 85.5 (80-100) fL MCH 28.9 (26-34) PG MCHC 33.8 (30-36) % RDW 14.8 (11.6-14.8) % Plt Count 295 (150-400) X10^3/uL Neut % (Auto) 73.2 (50-75) % Lymph % (Auto) 15.6 L (25-40) % [place] % (Auto) 7.8 (3-14) % Eos % (Auto) 2.5 (2-4) % Baso % (Auto) 0.9 (0-2) % Neut # (Auto) 9300 H (7763-2431) /uL Sodium 140 (137-145) mmol/L Potassium 4.2 (3.4-5.1) mmol/L Chloride 101 (98-107) mmol/L Carbon Dioxide 27 (22-32) mmol/L BUN 27 H (7-17) mg/dL Creatinine 0.90 (0.52-1.04) mg/dL Estimated GFR > 60.0 (>60) mL/min BUN/Creatinine Ratio 30.0 H (6-22) Glucose 94 (80-110) mg/dL Calcium 10.2 (8.4-10.2) mg/dL Magnesium 1.9 (1.6-2.3) mg/dL Total Bilirubin 0.8 (0.2-1.3) mg/dL AST 32 (14-36) IU/L ALT 21 (9-52) IU/L Alkaline Phosphatase 57 (38-126) U/L Total Creatine Kinase 35 (30-135) U/L CK-MB (CK-2) TNP CK-MB (CK-2) Rel Index TNP Troponin I 0.264 H* (0.01-0.034) ng/mL B-Natriuretic Peptide 78.3 (<100) Total Protein 7.6 (6.3-8.2) g/dL Albumin 4.6 (3.5-5.0) g/dL Globulin 3.0 (1.7-4.1) g/dL Albumin/Globulin Ratio 1.5 (1.0-2.8) Procalcitonin < 0.05 (<0.5) ng/mL Urine Dip Bedside Urine Glucose Negative Bedside Urine Bilirubin - Negative Bedside Urine Ketone - Negative Urine Specific Marshall 1.010 Bedside Urine Occult Blood - Negative Bedside Urine pH 6.0 Bedside Urine Protein - Negative Bedside Urine Urobilinogen - Negative Bedside Urine Nitrite - Negative Bedside Urine Leukocytes - Negative Esterase Imaging Data Chest x-ray: Radiologist's impression: [address] [address] XRay Report Signed Patient: Lindsay Aguilar [facility]#: [id number] : 7Acct:[id number] Age/Sex: 82 / FDate of Service: 07/07/18 Loc: ED Accession Number: [id number] Procedure: XR chest 1V Ordering Provider: Rima Morris D.O. PROCEDURE: XR CHEST 1V INDICATIONS: Shortness of breath, chest pain TECHNIQUE: One view of the chest was acquired. COMPARISON: [facility], , XR CHEST 1V, 04/17/2018, 12:47. FINDINGS: Surgical changes and devices: Sternotomy and CABG. Lungs and pleura: Bilateral interstitial infiltrates suspicious for pulmonary edema secondary to congestive heart failure. No pleural effusions or pneumothorax. Mediastinum: Mediastinal contours appear normal. Heart size is [id number]-al-[id number] increased. Bones and chest wall: No suspicious bony lesions. Overlying soft tissues appear unremarkable. IMPRESSION: Congestive heart failure. Dictated by: Magaly Ramirez M.D. on 07/07/2018 at 13:30 ECG Data Attestation: I personally reviewed and interpreted this ECG as follows: Prior ECG tracings: available for review Interpretation: Sinus rhythm rate 91 with PVC right bundle-branch block noted ST depression noted in the [address] elevation is NM interval [address] depression is new from prior EKG EKG 2.: Sinus rhythm rate [address] depression and T-wave inversion in V5 and V6 persistent right bundle-branch block no ST-T changes Core Measures AMI core measures followed: Yes MDM Narrative Medical decision making narrative: Troponin is noted to be elevated 0.26. I discussed case with Dr. Romano, hospitalist is recommends transfer. 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 has been updated patient's symptoms test results happily accepts patient for transfer. The patient is hemodynamically stable. Waiting for transfer-2.5 hr ambulance wait, does not need stat for emergent transfer criteria Discharge Plan Departure Patient Disposition: [facility] Clinical Impression: Non-ST elevated myocardial infarction Discharge Date/Time: 07/07/18 19:15 Interventions: ED Discharge Assessment Last Done: 07/07/18 19:15 Prescriptions: No Action tiotropium bromide [Spiriva with HandiHaler] 18 MCG capsule, w/inhalation device 1 puff INH DAILY Qty: 0 RF: 0 aspirin 81 MG tablet,delayed release (DR/EC) 81 mg PO QDAY Qty: 0 RF: 0 lisinopril 40 mg Tablet 40 mg PO DAILY RF: 0 atorvastatin [Lipitor] 20 mg Tablet 40 mg PO BEDTIME Qty: 180 RF: 0 prednisone 10 mg tablet 1 dose PO DIRECTED RF: 0 levothyroxine 75 mcg tablet 75 mcg PO DAILY RF: 0 albuterol sulfate [Ventolin HFA] 90 mcg/actuation HFA aerosol inhaler 2 puff Inhalation Q4H PRN (Reason: Shortness Of Breath) RF: 0 triamterene-hydrochlorothiazid 37.5-25 mg tablet 1 tab PO DAILY RF: 0 fluticasone-salmeterol [Advair Diskus] 250-50 mcg/dose Blister With Device 1 inh INHALATION BID RF: 0 ipratropium bromide [Atrovent HFA] 17 mcg/actuation Hfa Aerosol Inhaler 2 puff Inhalation QID RF: 0 omega 3-nmp-llr-fish oil [Fish Oil] 1,000 mg (120 mg-180 mg) Capsule 1,000 mg PO DAILY RF: 0 nitroglycerin [Nitrostat] 0.4 mg Tablet, Sublingual 0.4 mg SUBLINGUAL Q5-15M PRN (Reason: Chest Pain) RF: 0 fluticasone [Flonase Allergy Relief] 50 mcg/actuation [place],Suspension 1 spray Intranasal BID PRN (Reason: Allergy Symptoms) RF: 0 vitamin E 400 unit Capsule 400 unit PO DAILY RF: 0 multivitamin Tablet,Chewable 1 tab PO DAILY RF: 0 Referrals: Allie Fleming MD [Primary Care Provider] -
--- NOTE | 2018-07-07 13:06 | DI.RAD.S_ITS ---
PROCEDURE: XR CHEST 1V INDICATIONS: Shortness of breath, chest pain TECHNIQUE: One view of the chest was acquired. COMPARISON: [facility], CR, XR CHEST 1V, 04/17/2018, 12:47. FINDINGS: Surgical changes and devices: Sternotomy and CABG. Lungs and pleura: Bilateral interstitial infiltrates suspicious for pulmonary edema secondary to congestive heart failure. No pleural effusions or pneumothorax. Mediastinum: Mediastinal contours appear normal. Heart size is suyoxvxi-es-sofvfwng increased. Bones and chest wall: No suspicious bony lesions. Overlying soft tissues appear unremarkable. IMPRESSION: Congestive heart failure. Dictated by: Magaly Ramirez M.D. on 07/07/2018 at 13:30 Approved by: Magaly Ramirez M.D. on 07/07/2018 at 13:31
[2018-07-07 13:14] LABS: Add Manual Diff / Slide Review NO; Basophils Percent Auto 0.9 % (0-2); Eosinophils Percent Auto 2.5 % (2-4); Hematocrit 46.1 % (36-46); Hemoglobin 15.6 g/dL (12.0-16.0); Lymphocytes Percent Auto 15.6 % (25-40); Mean Corpuscular HGB Conc 33.8 % (30-36); Mean Corpuscular Hemoglobin 28.9 PG (26-34); Mean Corpuscular Volume 85.5 fL (80-100); Monocytes Percent Auto 7.8 % (3-14); Neutrophils Absolute Auto 9300 /uL (3000-5900); Neutrophils Percent Auto 73.2 % (50-75); Platelet Count 295 X10^3/uL (150-400); Red Blood Cell Count 5.39 X10^6/uL (4.0-5.2); Red Cell Distribution Width 14.8 % (11.6-14.8); White Blood Cell Count 12.6 X10^3/uL (4.5-11.0)
[2018-07-07] MEDS: methylPREDNISolone 125 MG/2 ML VIAL IV (13:17)
[2018-07-07] MEDS: ALBUTEROL/IPRATROPIUM 3 ML AMPUL INH ×2 (13:18→13:24)
[2018-07-07] MEDS: ASPIRIN 81 MG TAB 324 MG PO (13:18)
[2018-07-07 13:23] LABS: Alanine Aminotransferase 21 IU/L (9-52); Albumin 4.6 g/dL (3.5-5.0); Albumin Globulin Ratio 1.5 (1.0-2.8); Alkaline Phosphatase 57 U/L (38-126); Aspartate Aminotransferase 32 IU/L (14-36); Bilirubin Total 0.8 mg/dL (0.2-1.3); Blood Urea Nitrogen 27 mg/dL (7-17); Calcium 10.2 mg/dL (8.4-10.2); Carbon Dioxide 27 mmol/L (22-32); Chloride 101 mmol/L (98-107); Creatine Kinase 35 U/L (30-135); Estimated Glomerular Filt Rate > 60.0 mL/min (>60); Glucose 94 mg/dL (80-110); Magnesium 1.9 mg/dL (1.6-2.3); Potassium 4.2 mmol/L (3.4-5.1); Sodium 140 mmol/L (137-145); Total Protein 7.6 g/dL (6.3-8.2)
--- NOTE | 2018-07-07 13:34 | ED_ITS ---
HPI - Chest Pain General Chief Complaint: Chest Pain Stated Complaint: chest feels tight Time Seen by Provider: 07/07/18 12:55 Source: patient Mode of arrival: ambulatory Limitations: no limitations History of Present Illness HPI narrative: Patient is an 82-year-old female who presents with chest pain and shortness of breath. She has a history of COPD, CHF and coronary artery disease. She says she has been out of her oxygen which she only wears at night for the last few nights. His today she was at [employer] where she works progressively had chest discomfort. She denies any radiation she feels like she has a cough which she can't get anything up. She has been taking Mucinex no relief. She does have an inhaler which she has not been using. She denies fever or chills. MD complaint: chest pain Related Data Home Medications Medication Instructions Recorded Confirmed tiotropium bromide [Spiriva with 1 puff INH DAILY #0 04/28/17 07/07/18 HandiHaler] aspirin 81 mg PO QDAY #0 07/11/17 07/07/18 lisinopril 40 mg PO DAILY 04/19/18 07/07/18 albuterol sulfate [Ventolin HFA] 2 puff INHALATION Q4H PRN 07/07/18 07/07/18 fluticasone [Flonase Allergy 1 spray INTRANASAL BID PRN 07/07/18 07/07/18 Relief] fluticasone-salmeterol [Advair 1 inh INHALATION BID 07/07/18 07/07/18 Diskus] ipratropium bromide [Atrovent HFA] 2 puff INHALATION QID 07/07/18 07/07/18 levothyroxine 75 mcg PO DAILY 07/07/18 07/07/18 multivitamin 1 tab PO DAILY 07/07/18 07/07/18 nitroglycerin [Nitrostat] 0.4 mg SUBLINGUAL Q5-15M PRN 07/07/18 07/07/18 omega 6-mof-jyj-fish oil [Fish Oil] 1,000 mg PO DAILY 07/07/18 07/07/18 prednisone 1 dose PO DIRECTED 07/07/18 07/07/18 triamterene-hydrochlorothiazid 1 tab PO DAILY 07/07/18 07/07/18 vitamin E 400 unit PO DAILY 07/07/18 07/07/18 Previous Rx's Medication Instructions Recorded atorvastatin [Lipitor] 40 mg PO BEDTIME #180 tab 04/20/18 Allergies Allergy/AdvReac Type Severity Reaction Status Date / Time acarbose Allergy Intermediate Abdominal Verified 07/07/18 15:35 Pain amlodipine Allergy Intermediate Verified 07/07/18 15:35 chlorthalidone Allergy Intermediate Redness of Verified 07/07/18 15:35 Skin doxazosin [From Cardura] Allergy Intermediate Rash Verified 07/07/18 15:35 doxycycline Allergy Intermediate Rash Verified 07/07/18 15:35 gemfibrozil Allergy Intermediate Rash Verified 07/07/18 15:35 levofloxacin Allergy Intermediate Rash Verified 07/07/18 15:35 losartan Allergy Intermediate Rash Verified 07/07/18 15:35 metoprolol Allergy Intermediate Verified 07/07/18 15:35 montelukast [From Singulair] Allergy Intermediate Difficulty Verified 07/07/18 15:35 Breathing nifedipine Allergy Intermediate Chills Verified 07/07/18 15:35 Sulfa (Sulfonamide Allergy Intermediate rash Verified 04/24/18 17:59 Antibiotics) sulfamethoxazole Allergy Intermediate Rash Verified 07/07/18 15:35 [From Bactrim] trimethoprim [From Bactrim] Allergy Intermediate Rash Verified 07/07/18 15:35 budesonide [From Symbicort] Allergy Mild Anxiety Verified 07/07/18 15:35 carvedilol Allergy Mild Rash Verified 07/07/18 15:35 choline fenofibrate Allergy Mild Gastrointestinal Verified 07/07/18 15:35 [From Trilipix] Upset formoterol [From Symbicort] Allergy Mild Anxiety Verified 07/07/18 15:35 Review of Systems Review of Systems All systems reviewed & are unremarkable except as noted in HPI and below Constitutional Denies chills, Denies fever(s), Denies lethargy and Denies weakness Eyes Denies change in vision, Denies eye discharge, Denies irritation and Denies loss of vision Cardiovascular Reports as per HPI Respiratory Reports as per HPI Gastrointestinal Gastrointestinal: Denies abdominal pain, Denies change in bowel habits, Denies diarrhea, Denies nausea and Denies vomiting Genitourinary Denies hematuria, Denies flank pain, Denies urinary incontinence and Denies urinary urgency Musculoskeletal Denies back pain, Denies muscle weakness, Denies numbness and Denies tingling Integumentary/Breasts Denies pruritus, Denies erythema, Denies rash and Denies wounds Neurologic Denies loss of vision, Denies numbness, Denies tingling and Denies weakness [facility] Medical History Unstable angina (Chronic) Elevated TSH (Chronic) Aneurysm of infrarenal abdominal aorta (Chronic) CAD (coronary artery disease) (Chronic) COPD (chronic obstructive pulmonary disease) with emphysema (Chronic) HTN (hypertension) (Chronic) Hyperlipidemia (Chronic) Valvular heart disease (Chronic) Bilateral carpal tunnel syndrome (Resolved) Surgical History H/O hysterectomy with oophorectomy (Resolved) H/O three vessel coronary artery bypass (Resolved) Hx of heart artery stent (Resolved) Status post cholecystectomy (Resolved) Social History household members: children Smoking Status: Former smoker alcohol intake: never Exam Initial Vital Signs Initial Vital Signs: Vital Signs Temperature 97.4 F L 07/07/18 12:53 Pulse Rate 88 07/07/18 12:53 Respiratory Rate 14 07/07/18 12:53 Blood Pressure 161/74 H 07/07/18 12:53 Pulse Oximetry 98 07/07/18 12:53 GENERAL: Well-appearing elderly female is out acute distress. Speaking in full sentences without difficulty HEENT: Head atraumatic,EOMI, pupils reactiv CARDIOVASCULAR: Regular rate and rhythm without murmurs, rubs or gallops. RESPIRATORY: Decreased breath sounds bilaterally no wheezing rales or rhonchi ABDOMEN: Soft, nontender. Normoactive bowel sounds all 4 quadrants. No guarding or rebound. EXTREMITIES: Normal range of motion, no clubbing or edema. Neurovascularly intact NEUROLOGICAL: Alert and oriented x4.Normal gait and speech SKIN: Warm, dry, no laceration, no petechiae, no rashes or lesions. Course Orders Ordered: ED Orders 07/07/18 12:53 B Type Natriuretic Peptide Stat Complete Blood Count AUTO DIFF Stat Comprehensive Metabolic Panel Stat Magnesium Stat Procalcitonin Stat Troponin & CK Cardiac Panel Stat 07/07/18 13:05 Consult to Respiratory Therapy Evaluate & Treat 07/07/18 13:06 XR chest 1V Stat Discontinued Medications Albuterol/Ipratropium (Duoneb) 3 ml INH NOW ONE Stop: 07/07/18 13:06 Last Admin: 07/07/18 13:18 Dose: 3 ml Albuterol/Ipratropium (Duoneb) 3 ml INH NOW ONE Stop: 07/07/18 13:24 Last Admin: 07/07/18 13:24 Dose: 3 ml Aspirin (Aspirin Chew) 324 mg PO NOW ONE Stop: 07/07/18 13:18 Last Admin: 07/07/18 13:18 Dose: 324 mg Heparin Sodium (Porcine) (Heparin) 3,400 unit 60 unit/kg (3400 unit) IV NOW ONE Stop: 07/07/18 13:59 Last Admin: 07/07/18 14:16 Dose: 3,400 unit Heparin Sodium/Dextrose (Heparin Drip) 25,000 unit in 500 mls @ 13.717 mls/hr IV CONT ROLANDA; Protocol Last Admin: 07/07/18 14:17 Dose: 12 units/kg/hr, 13.717 mls/hr Methylprednisolone (Solu-Medrol 125 Mg Vial) 125 mg IV NOW ONE Stop: 07/07/18 13:06 Last Admin: 07/07/18 13:17 Dose: 125 mg Nitroglycerin (Nitrostat) 0.4 mg SL NOW ONE Stop: 07/07/18 15:13 Last Admin: 07/07/18 15:13 Dose: 0.4 mg Vital Signs - 8 hr 07/07/18 12:53 07/07/18 13:15 07/07/18 13:25 Temperature 97.4 F L Pulse Rate 88 Respiratory Rate 14 Blood Pressure 161/74 H Blood Pressure [Left Arm] Pulse Oximetry 98 97 99 07/07/18 13:47 07/07/18 14:30 07/07/18 15:30 Temperature Pulse Rate 96 H 107 H 110 H Respiratory Rate 20 24 23 Blood Pressure Blood Pressure [Left Arm] 145/66 H 149/66 H 126/76 Pulse Oximetry 100 98 98 07/07/18 16:31 07/07/18 17:30 07/07/18 19:02 Temperature Pulse Rate 112 H 111 H 105 H Respiratory Rate 30 H 28 H 25 H Blood Pressure Blood Pressure [Left Arm] 150/73 H 133/83 155/87 H Pulse Oximetry 96 98 MDM - Chest Pain Lab Data Attestation: I reviewed the patient's lab results. Result diagrams: 07/07/18 12:53 07/07/18 12:53 Lab Results 07/07/18 07/07/18 07/07/18 Range/Units 12:53 12:53 12:53 WBC 12.6 H (4.5-11.0) X10^3/uL RBC 5.39 H (4.0-5.2) X10^6/uL Hgb 15.6 (12.0-16.0) g/dL Hct 46.1 H (36-46) % MCV 85.5 (80-100) fL MCH 28.9 (26-34) PG MCHC 33.8 (30-36) % RDW 14.8 (11.6-14.8) % Plt Count 295 (150-400) X10^3/uL Neut % (Auto) 73.2 (50-75) % Lymph % (Auto) 15.6 L (25-40) % [place] % (Auto) 7.8 (3-14) % Eos % (Auto) 2.5 (2-4) % Baso % (Auto) 0.9 (0-2) % Neut # (Auto) 9300 H (2968-3888) /uL Sodium 140 (137-145) mmol/L Potassium 4.2 (3.4-5.1) mmol/L Chloride 101 (98-107) mmol/L Carbon Dioxide 27 (22-32) mmol/L BUN 27 H (7-17) mg/dL Creatinine 0.90 (0.52-1.04) mg/dL Estimated GFR > 60.0 (>60) mL/min BUN/Creatinine Ratio 30.0 H (6-22) Glucose 94 (80-110) mg/dL Calcium 10.2 (8.4-10.2) mg/dL Magnesium 1.9 (1.6-2.3) mg/dL Total Bilirubin 0.8 (0.2-1.3) mg/dL AST 32 (14-36) IU/L ALT 21 (9-52) IU/L Alkaline Phosphatase 57 (38-126) U/L Total Creatine Kinase 35 (30-135) U/L CK-MB (CK-2) TNP CK-MB (CK-2) Rel Index TNP Troponin I 0.264 H* (0.01-0.034) ng/mL B-Natriuretic Peptide 78.3 (<100) Total Protein 7.6 (6.3-8.2) g/dL Albumin 4.6 (3.5-5.0) g/dL Globulin 3.0 (1.7-4.1) g/dL Albumin/Globulin Ratio 1.5 (1.0-2.8) Procalcitonin < 0.05 (<0.5) ng/mL Urine Dip Bedside Urine Glucose Negative Bedside Urine Bilirubin - Negative Bedside Urine Ketone - Negative Urine Specific [place] 1.010 Bedside Urine Occult Blood - Negative Bedside Urine pH 6.0 Bedside Urine Protein - Negative Bedside Urine Urobilinogen - Negative Bedside Urine Nitrite - Negative Bedside Urine Leukocytes - Negative Esterase Imaging Data Chest x-ray: Radiologist's impression: [address] [address] XRay Report Signed Patient: Lindsay Aguilar [facility]#: [id number] : 7Acct:[id number] Age/Sex: 82 / FDate of Service: 07/07/18 Loc: ED Accession Number: [id number] Procedure: XR chest 1V Ordering Provider: Rima Morris D.O. PROCEDURE: XR CHEST 1V INDICATIONS: Shortness of breath, chest pain TECHNIQUE: One view of the chest was acquired. COMPARISON: [facility], , XR CHEST 1V, 04/17/2018, 12:47. FINDINGS: Surgical changes and devices: Sternotomy and CABG. Lungs and pleura: Bilateral interstitial infiltrates suspicious for pulmonary edema secondary to congestive heart failure. No pleural effusions or pneumothorax. Mediastinum: Mediastinal contours appear normal. Heart size is moderate-to- severely increased. Bones and chest wall: No suspicious bony lesions. Overlying soft tissues appear unremarkable. IMPRESSION: Congestive heart failure. Dictated by: Magaly Ramirez M.D. on 07/07/2018 at 13:30 ECG Data Attestation: I personally reviewed and interpreted this ECG as follows: Prior ECG tracings: available for review Interpretation: Sinus rhythm rate 91 with PVC right bundle-branch block noted ST depression noted in the [address] elevation is [place] interval [address] depression is new from prior EKG EKG 2.: Sinus rhythm rate [address] depression and T-wave inversion in V5 and V6 persistent right bundle-branch block no ST-T changes Core Measures AMI core measures followed: Yes MDM Narrative Medical decision making narrative: Troponin is noted to be elevated 0.26. I discussed case with Dr. Romano, hospitalist is recommends transfer. , strategic consultant at [facility] has been updated symptoms test results agrees with transfer recommends admission to hospitalist , hospitalist at [facility] has been updated patient's symptoms test results happily accepts patient for transfer. The patient is hemodynamically stable. Waiting for transfer-2.5 hr ambulance wait, does not need stat for emergent transfer criteria Discharge Plan Departure Patient Disposition: [facility] Clinical Impression: Non-ST elevated myocardial infarction Discharge Date/Time: 07/07/18 19:15 Interventions: ED Discharge Assessment Last Done: 07/07/18 19:15 Prescriptions: No Action tiotropium bromide [Spiriva with HandiHaler] 18 MCG capsule, w/inhalation device 1 puff INH DAILY Qty: 0 RF: 0 aspirin 81 MG tablet,delayed release (DR/EC) 81 mg PO QDAY Qty: 0 RF: 0 lisinopril 40 mg Tablet 40 mg PO DAILY RF: 0 atorvastatin [Lipitor] 20 mg Tablet 40 mg PO BEDTIME Qty: 180 RF: 0 prednisone 10 mg tablet 1 dose PO DIRECTED RF: 0 levothyroxine 75 mcg tablet 75 mcg PO DAILY RF: 0 albuterol sulfate [Ventolin HFA] 90 mcg/actuation HFA aerosol inhaler 2 puff Inhalation Q4H PRN (Reason: Shortness Of Breath) RF: 0 triamterene-hydrochlorothiazid 37.5-25 mg tablet 1 tab PO DAILY RF: 0 fluticasone-salmeterol [Advair Diskus] 250-50 mcg/dose Blister With Device 1 inh INHALATION BID RF: 0 ipratropium bromide [Atrovent HFA] 17 mcg/actuation Hfa Aerosol Inhaler 2 puff Inhalation QID RF: 0 omega 1-eaa-njj-fish oil [Fish Oil] 1,000 mg (120 mg-180 mg) Capsule 1,000 mg PO DAILY RF: 0 nitroglycerin [Nitrostat] 0.4 mg Tablet, Sublingual 0.4 mg SUBLINGUAL Q5-15M PRN (Reason: Chest Pain) RF: 0 fluticasone [Flonase Allergy Relief] 50 mcg/actuation [place],Suspension 1 spray Intranasal BID PRN (Reason: Allergy Symptoms) RF: 0 vitamin E 400 unit Capsule 400 unit PO DAILY RF: 0 multivitamin Tablet,Chewable 1 tab PO DAILY RF: 0 Referrals: Allie Fleming MD [Primary Care Provider] -
[2018-07-07 13:44] LABS: Procalcitonin < 0.05 ng/mL (<0.5)
[2018-07-07 13:54] LABS: HEMOLYSIS 58 (0-50)
[2018-07-07 13:55] LABS: Troponin I 0.264 ng/mL (0.01-0.034)
[2018-07-07] MEDS: HEPARIN 5,000 UNIT/ML VIAL 3400 UNIT IV (14:16)
[2018-07-07] MEDS: HEPARIN DRIP 25,000 UNIT/500 ML IV.SOLN 13.717 UNIT IV (14:17)
[2018-07-07 15:04] LABS: B Type Natriuretic Peptide 78.3 (<100)
[2018-07-07] MEDS: NITROGLYCERIN 0.4 MG SL TAB SL (15:13)
--- NOTE | 2018-07-14 01:37 | PC.NURSE ---
Heparin infusion continues at time of transfer
== END 2018-07-07 19:15 | disposition short-term general hospital (02) ==
PROVIDERS: Emergency Provider Emergency Medicine; PCP Internal Medicine
DX: I21.4 Non-ST elevation (NSTEMI) myocardial infarction (principal)
CPT/HCPCS: 36591; 71045; 80053; 81003; 82550; 83735; 83880; 84145; 84484; 85025; 93005; 94640; 96365; 96366; 96375; 99283; 99285; J1644; J2930

== ENCOUNTER → 2018-08-22 09:04 | Outpatient (CLI) | payer OTHER, SELFPAY ==
[2018-04-17 15:43] VITALS: BMI 20.8
== END ==
PROVIDERS: PCP Internal Medicine; Visit Provider Physician Assistant
DX: R30.0 Dysuria (principal)
CPT/HCPCS: 87077; 87086; 87186

== ENCOUNTER 2018-08-31 10:00 | Outpatient (RCR) | payer OTHER, SELFPAY ==
[2018-04-17 15:43] VITALS: BMI 20.8
== END 2018-09-01 08:16 ==
LOC: CAR 10:00
PROVIDERS: PCP Internal Medicine; Visit Provider Internal Medicine Cardiovascular Disease
DX: I21.4 Non-ST elevation (NSTEMI) myocardial infarction (principal)
CPT/HCPCS: 93798

== ENCOUNTER → 2018-09-21 12:42 | Outpatient (CLI) | payer OTHER, SELFPAY ==
[2018-04-17 15:43] VITALS: BMI 20.8
--- NOTE | 2018-09-24 13:33 | PM.PFT.1 ---
Pulmonary Function Test Referral & Results Date Patient Seen: 09/21/18 Requesting provider: Allie Fleming Indication: J44.9 Results: The spirometry demonstrates an FVC of 1.76 L which is 85% of predicted. The FEV1 was measured at 1.20 L which is 79% of predicted. The FEV1/FVC ratio was 68 which is 93% of predicted. Following the administration of bronchodilator there was no appreciable change. Lung volumes show an SVC of 1.84 L which is 82% of predicted. The diffusing capacity was measured at 11.21 which is 59% of predicted. No hemoglobin value was provided, so no correction for potential anemia could be made, if appropriate. The maximum voluntary ventilation was severely reduced Interpretation: This study demonstrates mild to moderate obstructive lung disease based on reduction FEV1 without evidence of benefit following bronchodilator administration There may also be mild restrictive lung disease present based on slight reduction in SVC There is more significant reduction in diffusing capacity suggesting more significant disease at the capillary alveolar level Clinical correlation suggested
== END ==
PROVIDERS: PCP Internal Medicine; Visit Provider Internal Medicine
DX: J44.9 Chronic obstructive pulmonary disease, unspecified (principal)
CPT/HCPCS: 94060; 94726; 94729

== ENCOUNTER 2018-11-04 04:50 | Emergency (ER) | payer OTHER, SELFPAY ==
[2018-04-17 15:43] VITALS: BMI 20.8
[2018-11-04 04:58] VITALS: BP 169/70; PULSE 85; RESP 20; TEMP 36.6; O2SAT 94; BMI 25.4
--- NOTE | 2018-11-04 05:07 | DI.RAD.S_ITS ---
PROCEDURE: XR CHEST 1V INDICATIONS: chest pain, shortness of breath TECHNIQUE: One view of the chest was acquired. COMPARISON: [facility], CR, XR CHEST 1V, 07/07/2018, 13:14. FINDINGS: Surgical changes and devices: Remote CABG. Epicardial wires. Lungs and pleura: Diffuse interstitial pulmonary edema. No focal pulmonary infiltrates. No pleural fluid. Mediastinum: Mediastinal contours appear normal. Stable cardiomegaly. Bones and chest wall: No suspicious bony lesions. Overlying soft tissues appear unremarkable. IMPRESSION: Congestive heart failure exacerbation. Dictated by: Casper Ferraro M.D. on 11/04/2018 at 8:30 Approved by: Casper Ferraro M.D. on 11/04/2018 at 8:31
[2018-11-04 05:30] VITALS: BP 151/60; PULSE 88; RESP 22; O2SAT 93
[2018-11-04] MEDS: ALBUTEROL/IPRATROPIUM 3 ML AMPUL INH ×2 (05:31→05:38)
[2018-11-04 05:32] VITALS: O2SAT 94
[2018-11-04 05:34] LABS: Add Manual Diff / Slide Review NO; Basophils Absolute Auto 100 /uL (0-100); Basophils Percent Auto 0.7 % (0-2); Eosinophils Absolute Auto 100 /uL (0-450); Eosinophils Percent Auto 0.9 % (2-4); Hematocrit 41.1 % (36-46); Hemoglobin 13.6 g/dL (12.0-16.0); Lymphocytes Absolute Auto 1300 /uL (1100-4500); Lymphocytes Percent Auto 13.3 % (25-40); Mean Corpuscular HGB Conc 33.2 % (30-36); Mean Corpuscular Hemoglobin 27.6 PG (26-34); Mean Corpuscular Volume 83.2 fL (80-100); Monocytes Absolute Auto 1100 /uL (0-900); Monocytes Percent Auto 10.8 % (3-14); Neutrophils Absolute Auto 7300 /uL (1500-7000); Neutrophils Percent Auto 74.3 % (50-75); Platelet Count 273 X10^3/uL (150-400); Red Blood Cell Count 4.93 X10^6/uL (4.0-5.2); Red Cell Distribution Width 13.9 % (11.6-14.8); White Blood Cell Count 9.9 X10^3/uL (4.5-11.0)
[2018-11-04] MEDS: SODIUM CHLORIDE 0.9% 1,000 ML 150 ML IV (05:38)
[2018-11-04] MEDS: methylPREDNISolone 125 MG/2 ML VIAL IV (05:38)
--- NOTE | 2018-11-04 05:41 | ED_ITS ---
HPI - Chest Pain General Chief Complaint: Shortness of Breath/Dyspnea Stated Complaint: not feeling well, chest hurts, hard to breathe Time Seen by Provider: 11/04/18 04:58 Source: patient Mode of arrival: ambulatory Limitations: no limitations History of Present Illness HPI narrative: 83-year-old female former smoker with history of COPD and hyperlipidemia presents with a chief complaint of feeling poorly for the past few days including cough with wheeze and shortness of breath. She denies fever or chills. She has some chest pressure which is worse with cough and deep breath. She is not dizzy nor weak or lightheaded. She denies nausea, vomiting or diarrhea. She denies any dysuria, frequency or urgency. MD complaint: chest pain Duration: intermittent Pain location: substernal Severity: mild Quality: tightness Pain radiation: none Relieving factors: rest Exacerbating factors: inspiration Context: recent illness Associated symptoms: dyspnea and cough Treatments prior to arrival chest pain: none Related Data Home Medications Medication Instructions Recorded Confirmed tiotropium bromide [Spiriva with 1 puff INH DAILY #0 04/28/17 08/22/18 HandiHaler] aspirin 81 mg PO QDAY #0 07/11/17 08/22/18 lisinopril 40 mg PO DAILY 04/19/18 08/22/18 albuterol sulfate [Ventolin HFA] 2 puff INHALATION Q4H PRN 07/07/18 08/22/18 fluticasone [Flonase Allergy 1 spray INTRANASAL BID PRN 07/07/18 08/22/18 Relief] fluticasone-salmeterol [Advair 1 inh INHALATION BID 07/07/18 08/22/18 Diskus] ipratropium bromide [Atrovent HFA] 2 puff INHALATION QID 07/07/18 08/22/18 levothyroxine 75 mcg PO DAILY 07/07/18 08/22/18 multivitamin 1 tab PO DAILY 07/07/18 08/22/18 nitroglycerin [Nitrostat] 0.4 mg SUBLINGUAL Q5-15M PRN 07/07/18 08/22/18 omega 4-hxn-imr-fish oil [Fish Oil] 1,000 mg PO DAILY 07/07/18 08/22/18 prednisone 1 dose PO DIRECTED 07/07/18 08/22/18 triamterene-hydrochlorothiazid 1 tab PO DAILY 07/07/18 08/22/18 vitamin E 400 unit PO DAILY 07/07/18 08/22/18 Previous Rx's Medication Instructions Recorded atorvastatin [Lipitor] 40 mg PO BEDTIME #180 tab 04/20/18 ipratropium-albuterol 3 ml INHALATION Q6-8H PRN #90 ml 11/04/18 prednisone 20 mg PO DAILY #5 tab 11/04/18 Allergies Allergy/AdvReac Type Severity Reaction Status Date / Time acarbose Allergy Intermediate Abdominal Verified 08/22/18 08:59 Pain amlodipine Allergy Intermediate Verified 08/22/18 08:59 chlorthalidone Allergy Intermediate Redness of Verified 08/22/18 08:59 Skin doxazosin [From Cardura] Allergy Intermediate Rash Verified 08/22/18 08:59 doxycycline Allergy Intermediate Rash Verified 08/22/18 08:59 gemfibrozil Allergy Intermediate Rash Verified 08/22/18 08:59 levofloxacin Allergy Intermediate Rash Verified 08/22/18 08:59 losartan Allergy Intermediate Rash Verified 08/22/18 08:59 metoprolol Allergy Intermediate Verified 08/22/18 08:59 montelukast [From Singulair] Allergy Intermediate Difficulty Verified 08/22/18 08:59 Breathing nifedipine Allergy Intermediate Chills Verified 08/22/18 08:59 Sulfa (Sulfonamide Allergy Intermediate rash Verified 08/22/18 08:59 Antibiotics) sulfamethoxazole Allergy Intermediate Rash Verified 08/22/18 08:59 [From Bactrim] trimethoprim [From Bactrim] Allergy Intermediate Rash Verified 08/22/18 08:59 budesonide [From Symbicort] Allergy Mild Anxiety Verified 08/22/18 08:59 carvedilol Allergy Mild Rash Verified 08/22/18 08:59 choline fenofibrate Allergy Mild Gastrointestinal Verified 08/22/18 08:59 [From Trilipix] Upset formoterol [From Symbicort] Allergy Mild Anxiety Verified 08/22/18 08:59 Review of Systems Constitutional Denies chills, Denies fever(s), Denies lethargy and Denies weakness Eyes Denies change in vision, Denies eye discharge, Denies irritation and Denies loss of vision ENT Ears, Nose, Mouth, and Throat: Denies change in voice, Denies neck pain and Denies sore throat Cardiovascular Denies chest pain, Denies irregular heart rhythm, Denies lightheadedness, Denies palpitations, Reports dyspnea, Reports dyspnea on exertion and Denies orthopnea Respiratory Denies cough, Reports dyspnea, Reports dyspnea on exertion and Denies wheezing Gastrointestinal Gastrointestinal: Denies abdominal pain, Denies change in bowel habits, Denies diarrhea, Denies nausea and Denies vomiting Genitourinary Denies hematuria, Denies flank pain, Denies urinary incontinence and Denies urinary urgency Musculoskeletal Denies neck pain Integumentary/Breasts Denies pruritus, Denies erythema, Denies rash and Denies wounds Neurologic Denies confusion, Denies loss of vision and Denies weakness Psychiatric Denies anxiety, Denies confusion, Denies depression, Denies homicidal ideation and Denies suicidal ideation Endocrine Denies palpitations Hematologic/Lymphatic Denies easy bruising Allergic/Immunologic Denies wheezing [facility] Social History household members: children Smoking Status: Former smoker alcohol intake: never Exam Initial Vital Signs Initial Vital Signs: Vital Signs Temperature 97.9 F 11/04/18 04:58 Pulse Rate 85 11/04/18 04:58 Respiratory Rate 20 11/04/18 04:58 Blood Pressure 169/70 H 11/04/18 04:58 Pulse Oximetry 94 11/04/18 04:58 Course Course Narrative: 83-year-old female with history of COPD presents with wheezing nonproductive cough. She is given multiple bronchodilators and steroids and feels tremendous improvement. Her chest x-ray is clear, influenza and cardiac enzymes are unremarkable. Orders Ordered: ED Orders 11/04/18 EKG-12 Lead Stat 11/04/18 05:07 XR chest 1V Stat EKG-12 Lead Stat 11/04/18 05:25 B Type Natriuretic Peptide Stat Complete Blood Count AUTO DIFF Stat Comprehensive Metabolic Panel Stat Lipase Stat Procalcitonin Stat Troponin & CK Cardiac Panel Stat 11/04/18 06:18 Influenza A and B by PCR Rapid Stat Sodium Chloride (Normal Saline 0.9%) 1,000 mls @ 150 mls/hr IV CONT ROLANDA Last Admin: 11/04/18 05:38 Dose: 150 mls/hr Discontinued Medications Albuterol/Ipratropium (Duoneb) 3 ml INH NOW ONE Stop: 11/04/18 05:26 Last Admin: 11/04/18 05:31 Dose: 3 ml Albuterol/Ipratropium (Duoneb) 3 ml INH NOW ONE Stop: 11/04/18 05:37 Last Admin: 11/04/18 05:38 Dose: 3 ml Methylprednisolone (Solu-Medrol 125 Mg Vial) 125 mg IV NOW ONE Stop: 11/04/18 05:26 Last Admin: 11/04/18 05:38 Dose: 125 mg Vital Signs - 8 hr 11/04/18 04:58 11/04/18 05:30 11/04/18 05:32 Temperature 97.9 F Pulse Rate 85 88 Respiratory Rate 20 22 Blood Pressure 169/70 H Blood Pressure [Left Arm] 151/60 H Pulse Oximetry 94 93 94 11/04/18 06:30 Temperature Pulse Rate 90 Respiratory Rate 22 Blood Pressure Blood Pressure [Left Arm] 161/50 H Pulse Oximetry 93 MDM - Chest Pain Lab Data Result diagrams: 11/04/18 05:25 11/04/18 05:25 Lab Results 11/04/18 11/04/18 11/04/18 Range/Units 05:25 05:25 05:25 WBC 9.9 (4.5-11.0) X10^3/uL RBC 4.93 (4.0-5.2) X10^6/uL Hgb 13.6 (12.0-16.0) g/dL Hct 41.1 (36-46) % MCV 83.2 (80-100) fL MCH 27.6 (26-34) PG MCHC 33.2 (30-36) % RDW 13.9 (11.6-14.8) % Plt Count 273 (150-400) X10^3/uL Neut % (Auto) 74.3 (50-75) % Lymph % (Auto) 13.3 L (25-40) % [place] % (Auto) 10.8 (3-14) % Eos % (Auto) 0.9 L (2-4) % Baso % (Auto) 0.7 (0-2) % Neut # (Auto) 7300 H (5045-3710) /uL Lymph # (Auto) 1300 (3408-5468) /uL [place] # (Auto) 1100 H (0-900) /uL Eos # (Auto) 100 (0-450) /uL Baso # (Auto) 100 (0-100) /uL Sodium 138 (137-145) mmol/L Potassium 3.7 (3.4-5.1) mmol/L Chloride 103 (98-107) mmol/L Carbon Dioxide 25 (22-32) mmol/L BUN 28 H (7-17) mg/dL Creatinine 0.90 (0.52-1.04) mg/dL Estimated GFR 59.9 L (>60) mL/min BUN/Creatinine Ratio 31.1 H (6-22) Glucose 86 (80-110) mg/dL Calcium 10.3 H (8.4-10.2) mg/dL Total Bilirubin 0.6 (0.2-1.3) mg/dL AST 28 (14-36) IU/L ALT 25 (9-52) IU/L Alkaline Phosphatase 56 (38-126) U/L Total Creatine Kinase 115 (30-135) U/L CK-MB (CK-2) 2.69 H (<2.37) ng/mL CK-MB (CK-2) Rel Index 2.3 (1.5-5.0) % Troponin I 0.025 (0.01-0.034) ng/mL B-Natriuretic Peptide < 100 (<100) Total Protein 7.4 (6.3-8.2) g/dL Albumin 4.3 (3.5-5.0) g/dL Globulin 3.1 (1.7-4.1) g/dL Albumin/Globulin Ratio 1.4 (1.0-2.8) Lipase 328 H (23-300) U/L Procalcitonin < 0.05 (<0.5) ng/mL Influenza A & B (PCR) (Negative) 11/04/18 Range/Units 06:18 WBC (4.5-11.0) X10^3/uL RBC (4.0-5.2) X10^6/uL Hgb (12.0-16.0) g/dL Hct (36-46) % MCV (80-100) fL MCH (26-34) PG MCHC (30-36) % RDW (11.6-14.8) % Plt Count (150-400) X10^3/uL Neut % (Auto) (50-75) % Lymph % (Auto) (25-40) % [place] % (Auto) (3-14) % Eos % (Auto) (2-4) % Baso % (Auto) (0-2) % Neut # (Auto) (3893-6461) /uL Lymph # (Auto) (9849-6099) /uL [place] # (Auto) (0-900) /uL Eos # (Auto) (0-450) /uL Baso # (Auto) (0-100) /uL Sodium (137-145) mmol/L Potassium (3.4-5.1) mmol/L Chloride (98-107) mmol/L Carbon Dioxide (22-32) mmol/L BUN (7-17) mg/dL Creatinine (0.52-1.04) mg/dL Estimated GFR (>60) mL/min BUN/Creatinine Ratio (6-22) Glucose (80-110) mg/dL Calcium (8.4-10.2) mg/dL Total Bilirubin (0.2-1.3) mg/dL AST (14-36) IU/L ALT (9-52) IU/L Alkaline Phosphatase (38-126) U/L Total Creatine Kinase (30-135) U/L CK-MB (CK-2) (<2.37) ng/mL CK-MB (CK-2) Rel Index (1.5-5.0) % Troponin I (0.01-0.034) ng/mL B-Natriuretic Peptide (<100) Total Protein (6.3-8.2) g/dL Albumin (3.5-5.0) g/dL Globulin (1.7-4.1) g/dL Albumin/Globulin Ratio (1.0-2.8) Lipase (23-300) U/L Procalcitonin (<0.5) ng/mL Influenza A & B (PCR) Negative (Negative) Discharge Plan Departure Patient Disposition: Home Clinical Impression: Post-nasal drip, Upper respiratory infection, viral, COPD exacerbation Instructions: DI for Acute Bronchitis, DI for Viral Upper Respiratory Infection -- Adult Activity Restrictions/Additional Instructions: *You have been diagnosed with [ acute exacerbation of COPD, viral upper respiratory infection ] *What to do: *Take medications as directed *Follow up with your primary care provider in 2-3 days, call for an appointment. Let them know you were seen in the Emergency Department and that we ask that you be seen in follow up *Return to ER if you should have any new, worsening or concerning symptoms, such as [ ] Prescriptions: New ipratropium-albuterol 0.5 mg-3 mg(2.5 mg base)/3 mL solution for nebulization 3 ml INHALATION Q6-8H PRN (Reason: shortness of breath or wheezing) Qty: 90 RF: 0 prednisone 20 mg tablet 20 mg PO DAILY Qty: 5 RF: 0 No Action tiotropium bromide [Spiriva with HandiHaler] 18 MCG capsule, w/inhalation device 1 puff INH DAILY Qty: 0 RF: 0 aspirin 81 MG tablet,delayed release (DR/EC) 81 mg PO QDAY Qty: 0 RF: 0 lisinopril 40 mg Tablet 40 mg PO DAILY RF: 0 atorvastatin [Lipitor] 20 mg Tablet 40 mg PO BEDTIME Qty: 180 RF: 0 prednisone 10 mg tablet 1 dose PO DIRECTED RF: 0 levothyroxine 75 mcg tablet 75 mcg PO DAILY RF: 0 albuterol sulfate [Ventolin HFA] 90 mcg/actuation HFA aerosol inhaler 2 puff Inhalation Q4H PRN (Reason: Shortness Of Breath) RF: 0 triamterene-hydrochlorothiazid 37.5-25 mg tablet 1 tab PO DAILY RF: 0 fluticasone-salmeterol [Advair Diskus] 250-50 mcg/dose Blister With Device 1 inh INHALATION BID RF: 0 ipratropium bromide [Atrovent HFA] 17 mcg/actuation Hfa Aerosol Inhaler 2 puff Inhalation QID RF: 0 omega 4-iuh-rbs-fish oil [Fish Oil] 1,000 mg (120 mg-180 mg) Capsule 1,000 mg PO DAILY RF: 0 nitroglycerin [Nitrostat] 0.4 mg Tablet, Sublingual 0.4 mg SUBLINGUAL Q5-15M PRN (Reason: Chest Pain) RF: 0 fluticasone [Flonase Allergy Relief] 50 mcg/actuation Husser,Suspension 1 spray Intranasal BID PRN (Reason: Allergy Symptoms) RF: 0 vitamin E 400 unit Capsule 400 unit PO DAILY RF: 0 multivitamin Tablet,Chewable 1 tab PO DAILY RF: 0 Referrals: Allie Fleming MD [Primary Care Provider] -
[2018-11-04 05:42] LABS: Alanine Aminotransferase 25 IU/L (9-52); Albumin 4.3 g/dL (3.5-5.0); Albumin Globulin Ratio 1.4 (1.0-2.8); Alkaline Phosphatase 56 U/L (38-126); Aspartate Aminotransferase 28 IU/L (14-36); BUN Creatinine Ratio 31.1 (6-22); Bilirubin Total 0.6 mg/dL (0.2-1.3); Blood Urea Nitrogen 28 mg/dL (7-17); Calcium 10.3 mg/dL (8.4-10.2); Carbon Dioxide 25 mmol/L (22-32); Chloride 103 mmol/L (98-107); Creatine Kinase 115 U/L (30-135); Estimated Glomerular Filt Rate 59.9 mL/min (>60); Globulin 3.1 g/dL (1.7-4.1); Glucose 86 mg/dL (80-110); HEMOLYSIS 23 (0-50); Lipase 328 U/L (23-300); Potassium 3.7 mmol/L (3.4-5.1); Sodium 138 mmol/L (137-145); Total Protein 7.4 g/dL (6.3-8.2)
[2018-11-04 05:53] LABS: B Type Natriuretic Peptide < 100 (<100)
[2018-11-04 05:54] LABS: Troponin I 0.025 ng/mL (0.01-0.034)
[2018-11-04 05:58] LABS: CKMB % Relative Index 2.3 % (1.5-5.0); Creatine Kinase MB 2.69 ng/mL (<2.37); Procalcitonin < 0.05 ng/mL (<0.5)
[2018-11-04 06:30] VITALS: BP 161/50; PULSE 90; RESP 22; O2SAT 93
[2018-11-04 06:38] LABS: Influenza A and B by PCR Rapid Negative (Negative)
--- NOTE | 2018-12-08 06:35 | PC.NURSE ---
late entry. IV stop time at 0645 on 11/04/18 with 1000mls infused.
== END 2018-11-04 06:59 | disposition home or self-care (01) ==
PROVIDERS: Emergency Provider Emergency Medicine; PCP Internal Medicine
DX: J06.9 Acute upper respiratory infection, unspecified (principal); J44.1 Chronic obstructive pulmonary disease with (acute) exacerbation
CPT/HCPCS: 36591; 71045; 80053; 82550; 82553; 83690; 83880; 84145; 84484; 85025; 87400; 93005; 94640; 96361; 96374; 99282; 99285; J2930

== ENCOUNTER 2019-01-16 09:05 | Emergency (ER) | payer OTHER, SELFPAY ==
[2018-04-17 15:43] VITALS: BMI 20.8
[2019-01-16] VITALS (7 sets, daily range): BP systolic 152–178; BP diastolic 58–84; PULSE 79–91; RESP 20–25; TEMP 36.4; O2SAT 92–100
--- NOTE | 2019-01-16 09:19 | DI.RAD.S_ITS ---
PROCEDURE: XR CHEST 1V INDICATIONS: short of breath and chest pain TECHNIQUE: One view of the chest was acquired. COMPARISON: [facility], CT, ANGIO CHEST ABDOMEN PELVIS, 11/06/2017, 18:40. [facility], CT, PE STUDY (CTA CHEST), 07/11/2017, 12:09. [facility], CR, CHEST 2 VIEW, 12/22/2017, 21:38. [facility], CR, XR CHEST 1V, 04/17/2018, 12:47. [facility], CR, XR CHEST 1V, 07/07/2018, 13:14. [facility], CR, XR CHEST 1V, 11/04/2018, 5:11. FINDINGS: Surgical changes and devices: Sternotomy wires are seen. Lungs and pleura: Low lung volumes are noted. This causes a crowded appearance to the lung markings and limits evaluation. Blunting of both costophrenic angles can be seen. Interstitial prominence is seen. Interstitial prominence is seen throughout. Mediastinum: The cardiac contours are mildly to moderately enlarged. The aorta demonstrates calcification and tortuosity. Bones and chest wall: No suspicious bony lesions. Age-appropriate bony degenerative changes are seen. Overlying soft tissues appear unremarkable. IMPRESSION: Cardiomegaly, interstitial prominence, and bilateral pleural effusions. Please correlate with patient presentation, physical examination findings, and laboratory values for congestive heart failure. Postoperative and degenerative changes are seen. Dictated by: Hernando Lake M.D. on 01/16/2019 at 8:57 Approved by: Hernando Lake M.D. on 01/16/2019 at 8:58
--- NOTE | 2019-01-16 09:21 | ED.SOB ---
HPI - SOB/Dyspnea General Chief Complaint: Shortness of Breath/Dyspnea Stated Complaint: copd trouble breathing/heavy Time Seen by Provider: 01/16/19 09:18 Source: patient Mode of arrival: ambulatory Limitations: no limitations History of Present Illness Patient is a 83-year-old female who has a history of COPD as coronary artery disease, and infrarenal aneurysm presenting with left-sided chest heaviness shortness of breath. She says that she has been traveling recently her grandchildren graduation. She has been using her nebulizer without much relief. Today she says that the pain and discomfort is worse. She denies any productive or fever. MD Complaint: shortness of breath, cough and chest pain Onset (ago): day(s) Context: occurred during exertion Consistency/Duration: constant Relieving factors: nothing Known history of: COPD Related Data Home Medications Medication Instructions Recorded Confirmed tiotropium bromide [Spiriva with 1 puff INH DAILY #0 04/28/17 08/22/18 HandiHaler] aspirin 81 mg PO QDAY #0 07/11/17 08/22/18 lisinopril 40 mg PO DAILY 04/19/18 08/22/18 albuterol sulfate [Ventolin HFA] 2 puff INHALATION Q4H PRN 07/07/18 08/22/18 fluticasone propion-salmeterol 1 inh INHALATION BID 07/07/18 08/22/18 [Advair Diskus] fluticasone propionate [Flonase 1 spray INTRANASAL BID PRN 07/07/18 08/22/18 Allergy Relief] ipratropium bromide [Atrovent HFA] 2 puff INHALATION QID 07/07/18 08/22/18 levothyroxine 75 mcg PO DAILY 07/07/18 08/22/18 multivitamin 1 tab PO DAILY 07/07/18 08/22/18 nitroglycerin [Nitrostat] 0.4 mg SUBLINGUAL Q5-15M PRN 07/07/18 08/22/18 omega 9-ofh-mio-fish oil [Fish Oil] 1,000 mg PO DAILY 07/07/18 08/22/18 prednisone 1 dose PO DIRECTED 07/07/18 08/22/18 triamterene-hydrochlorothiazid 1 tab PO DAILY 07/07/18 08/22/18 vitamin E 400 unit PO DAILY 07/07/18 08/22/18 Previous Rx's Medication Instructions Recorded atorvastatin [Lipitor] 40 mg PO BEDTIME #180 tab 04/20/18 ipratropium-albuterol 3 ml INHALATION Q6-8H PRN #90 ml 11/04/18 prednisone 20 mg PO DAILY #5 tab 11/04/18 furosemide [Lasix] 20 mg PO BID #6 tab 01/16/19 furosemide [Lasix] 20 mg PO DAILY #5 tab 01/16/19 Allergies Allergy/AdvReac Type Severity Reaction Status Date / Time acarbose Allergy Intermediate Abdominal Verified 01/16/19 09:12 Pain amlodipine Allergy Intermediate Verified 01/16/19 09:12 chlorthalidone Allergy Intermediate Redness of Verified 01/16/19 09:12 Skin doxazosin [From Cardura] Allergy Intermediate Rash Verified 01/16/19 09:12 doxycycline Allergy Intermediate Rash Verified 01/16/19 09:12 gemfibrozil Allergy Intermediate Rash Verified 01/16/19 09:12 levofloxacin Allergy Intermediate Rash Verified 01/16/19 09:12 losartan Allergy Intermediate Rash Verified 01/16/19 09:12 metoprolol Allergy Intermediate Verified 01/16/19 09:12 montelukast [From Singulair] Allergy Intermediate Difficulty Verified 01/16/19 09:12 Breathing nifedipine Allergy Intermediate Chills Verified 01/16/19 09:12 Sulfa (Sulfonamide Allergy Intermediate rash Verified 01/16/19 09:12 Antibiotics) sulfamethoxazole Allergy Intermediate Rash Verified 01/16/19 09:12 [From Bactrim] trimethoprim [From Bactrim] Allergy Intermediate Rash Verified 01/16/19 09:12 budesonide [From Symbicort] Allergy Mild Anxiety Verified 01/16/19 09:12 carvedilol Allergy Mild Rash Verified 01/16/19 09:12 choline fenofibrate Allergy Mild Gastrointestinal Verified 01/16/19 09:12 [From Trilipix] Upset formoterol [From Symbicort] Allergy Mild Anxiety Verified 01/16/19 09:12 Review of Systems Constitutional Denies chills, Denies fever(s), Denies lethargy and Denies weakness Eyes Denies change in vision, Denies eye discharge, Denies irritation and Denies loss of vision ENT Ears, Nose, Mouth, and Throat: Denies change in voice, Denies neck pain and Denies sore throat Cardiovascular Reports chest pain Respiratory Reports as per HPI Gastrointestinal Gastrointestinal: Denies abdominal pain, Denies change in bowel habits, Denies diarrhea, Denies nausea and Denies vomiting Genitourinary Denies hematuria, Denies flank pain, Denies urinary incontinence and Denies urinary urgency Musculoskeletal Denies neck pain Integumentary/Breasts Denies pruritus, Denies erythema, Denies rash and Denies wounds Neurologic Denies loss of vision and Denies weakness [facility] Medical History Unstable angina (Chronic) Elevated TSH (Chronic) Aneurysm of infrarenal abdominal aorta (Chronic) CAD (coronary artery disease) (Chronic) COPD (chronic obstructive pulmonary disease) with emphysema (Chronic) HTN (hypertension) (Chronic) Hyperlipidemia (Chronic) Valvular heart disease (Chronic) Bilateral carpal tunnel syndrome (Resolved) Surgical History H/O hysterectomy with oophorectomy (Resolved) H/O three vessel coronary artery bypass (Resolved) Hx of heart artery stent (Resolved) Status post cholecystectomy (Resolved) Social History household members: children Smoking Status: Former smoker alcohol intake: never Social History household members: children Smoking Status: Former smoker alcohol intake: never Exam Initial Vital Signs Initial Vital Signs: Vital Signs Temperature 97.6 F 01/16/19 09:08 Pulse Rate 84 01/16/19 09:08 Respiratory Rate 22 01/16/19 09:08 Blood Pressure 170/84 H 01/16/19 09:08 Pulse Oximetry 98 01/16/19 09:08 GENERAL: Very pleasant elderly female in moderate respiratory distress HEENT: Head atraumatic,EOMI, pupils reactive, face symmetric, [moist] mucous membranes CARDIOVASCULAR: Regular rate and rhythm without murmurs, rubs or gallops. RESPIRATORY: Decreased breath sounds bilaterally no wheezing does speak in full sentences but does have obvious conversational dyspnea ABDOMEN: Soft, nontender. Normoactive bowel sounds all 4 quadrants. No guarding or rebound. : No CVA tenderness EXTREMITIES: Normal range of motion, no clubbing or edema. Neurovascularly intact NEUROLOGICAL: Alert and oriented x4.Normal gait and speech. Cranial nerves II through XII grossly intact. SKIN: Warm, dry, no laceration, no petechiae, no rashes or lesions. Course Orders Ordered: ED Orders 01/16/19 09:19 XR chest 1V Stat 01/16/19 09:35 Comprehensive Metabolic Panel Stat Lipase Stat Troponin & CK Cardiac Panel Stat 01/16/19 10:01 CT angio chest PE protocol Stat 01/16/19 10:05 B Type Natriuretic Peptide Stat Complete Blood Count AUTO DIFF Stat Partial Thromboplastin Time Stat Prothrombin Time INR Stat 01/16/19 12:00 Troponin I Stat EKG-12 Lead Stat 01/16/19 12:02 EKG-12 Lead Stat Discontinued Medications Albuterol/Ipratropium (Duoneb) 3 ml INH NOW ONE Stop: 01/16/19 09:20 Last Admin: 01/16/19 09:32 Dose: 3 ml Aspirin (Aspirin Chew) 324 mg PO NOW ONE Stop: 01/16/19 09:20 Last Admin: 01/16/19 09:30 Dose: 324 mg Furosemide (Lasix) 40 mg IV NOW ONE Stop: 01/16/19 10:41 Last Admin: 01/16/19 10:44 Dose: 40 mg Methylprednisolone (Solu-Medrol 125 Mg Vial) 125 mg IV NOW ONE Stop: 01/16/19 10:02 Last Admin: 01/16/19 10:20 Dose: 125 mg Vital Signs - 8 hr 01/16/19 09:08 01/16/19 09:24 01/16/19 09:34 Temperature 97.6 F Pulse Rate 84 79 88 Respiratory Rate 22 22 20 Blood Pressure 170/84 H Blood Pressure [Right Arm] 175/73 H Pulse Oximetry 98 100 92 01/16/19 09:38 01/16/19 10:41 01/16/19 13:00 Temperature Pulse Rate 88 91 H 87 Respiratory Rate 22 25 H 21 Blood Pressure Blood Pressure [Right Arm] 152/79 H 170/69 H 167/75 H Pulse Oximetry 95 97 96 01/16/19 13:30 Temperature Pulse Rate 80 Respiratory Rate 22 Blood Pressure 178/58 H Blood Pressure [Right Arm] Pulse Oximetry 95 MDM - SOB/Dyspnea Lab Data Attestation: I reviewed the patient's lab results. Result diagrams: 01/16/19 10:05 01/16/19 09:35 Lab Results 01/16/19 01/16/19 01/16/19 Range/Units 09:35 10:05 10:05 WBC 8.3 (4.5-11.0) X10^3/uL RBC 5.37 H (4.0-5.2) X10^6/uL Hgb 14.8 (12.0-16.0) g/dL Hct 45.4 (36-46) % MCV 84.6 (80-100) fL MCH 27.6 (26-34) PG MCHC 32.7 (30-36) % RDW 16.5 H (11.6-14.8) % Plt Count 199 (150-400) X10^3/uL Neut % (Auto) 72.5 (50-75) % Lymph % (Auto) 17.1 L (25-40) % [place] % (Auto) 7.6 (3-14) % Eos % (Auto) 1.9 L (2-4) % Baso % (Auto) 0.9 (0-2) % Neut # (Auto) 6000 (3295-3010) /uL Lymph # (Auto) 1400 (6564-7979) /uL [place] # (Auto) 600 (0-900) /uL Eos # (Auto) 200 (0-450) /uL Baso # (Auto) 100 (0-100) /uL PT 11.2 (10.1-12.7) SECONDS INR 1.0 (0.9-1.3) APTT 29 (26.4-36.2) SECONDS Sodium 137 (137-145) mmol/L Potassium 4.3 (3.4-5.1) mmol/L Chloride 104 (98-107) mmol/L Carbon Dioxide 26 (22-32) mmol/L BUN 25 H (7-17) mg/dL Creatinine 0.90 (0.52-1.04) mg/dL Estimated GFR 59.9 L (>60) mL/min BUN/Creatinine Ratio 27.8 H (6-22) Glucose 106 (80-110) mg/dL Calcium 9.7 (8.4-10.2) mg/dL Total Bilirubin 1.2 (0.2-1.3) mg/dL AST 21 (14-36) IU/L ALT 25 (9-52) IU/L Alkaline Phosphatase 53 (38-126) U/L Total Creatine Kinase 28 L (30-135) U/L CK-MB (CK-2) TNP CK-MB (CK-2) Rel Index TNP Troponin I 0.034 (0.01-0.034) ng/mL B-Natriuretic Peptide 710 H (<100) Total Protein 6.6 (6.3-8.2) g/dL Albumin 3.9 (3.5-5.0) g/dL Globulin 2.7 (1.7-4.1) g/dL Albumin/Globulin Ratio 1.4 (1.0-2.8) Lipase 61 (23-300) U/L 01/16/19 Range/Units 12:00 WBC (4.5-11.0) X10^3/uL RBC (4.0-5.2) X10^6/uL Hgb (12.0-16.0) g/dL Hct (36-46) % MCV (80-100) fL MCH (26-34) PG MCHC (30-36) % RDW (11.6-14.8) % Plt Count (150-400) X10^3/uL Neut % (Auto) (50-75) % Lymph % (Auto) (25-40) % [place] % (Auto) (3-14) % Eos % (Auto) (2-4) % Baso % (Auto) (0-2) % Neut # (Auto) (7022-6812) /uL Lymph # (Auto) (1449-1722) /uL [place] # (Auto) (0-900) /uL Eos # (Auto) (0-450) /uL Baso # (Auto) (0-100) /uL PT (10.1-12.7) SECONDS INR (0.9-1.3) APTT (26.4-36.2) SECONDS Sodium (137-145) mmol/L Potassium (3.4-5.1) mmol/L Chloride (98-107) mmol/L Carbon Dioxide (22-32) mmol/L BUN (7-17) mg/dL Creatinine (0.52-1.04) mg/dL Estimated GFR (>60) mL/min BUN/Creatinine Ratio (6-22) Glucose (80-110) mg/dL Calcium (8.4-10.2) mg/dL Total Bilirubin (0.2-1.3) mg/dL AST (14-36) IU/L ALT (9-52) IU/L Alkaline Phosphatase (38-126) U/L Total Creatine Kinase (30-135) U/L CK-MB (CK-2) CK-MB (CK-2) Rel Index Troponin I 0.032 (0.01-0.034) ng/mL B-Natriuretic Peptide (<100) Total Protein (6.3-8.2) g/dL Albumin (3.5-5.0) g/dL Globulin (1.7-4.1) g/dL Albumin/Globulin Ratio (1.0-2.8) Lipase (23-300) U/L Urine Dip Bedside Urine Glucose Negative Bedside Urine Bilirubin - Negative Bedside Urine Ketone - Negative Urine Specific [place] 1.025 Bedside Urine Occult Blood - Negative Bedside Urine pH 6.0 Bedside Urine Protein - Negative Bedside Urine Urobilinogen - Negative Bedside Urine Nitrite - Negative Bedside Urine Leukocytes - Negative Esterase Imaging Data CT scan - chest: Radiologist's impression: PROCEDURE: CT ANGIO CHEST PE PROTOCOL INDICATIONS: chest pain and short of breath TECHNIQUE: After the administration of intravenous contrast, 2 mm thick sections acquired from the pulmonary apices to the posterior costophrenic angles. 3-dimensional maximum intensity projection (MIP) coronal and sagittal reformats were then acquired through the thorax. For radiation dose reduction, the following was used: automated exposure control, adjustment of mA and/or kV according to patient size. COMPARISON: [facility], CT, ABDOMEN/PELVIS WITH CONTRAST, 06/18/2017, 8:29. [facility], CT, ANGIO CHEST ABDOMEN PELVIS, 11/06/2017, 18:40. [facility], CT, PE STUDY (CTA CHEST), 07/11/2017, 12:09. [facility], CR, CHEST 2 VIEW, 12/22/2017, 21:38. [facility], CR, XR CHEST 1V, 01/16/2019, 9:32. FINDINGS: Image quality: Excellent. Pulmonary arteries: Pulmonary arteries are normal in size, and demonstrate no intraluminal filling defects to suggest central pulmonary embolism. Lungs and pleura: Moderate centrilobular emphysematous changes are seen. These are more prominent at the lung apices than at the lung bases. No pleural effusions or pneumothorax. Central and peripheral airways are patent. Mediastinum: Heart size is mildly to moderately enlarged, without pericardial effusion. Cardiac stents are seen. No mediastinal or hilar adenopathy. Thoracic aorta is normal in caliber and enhancement. Esophagus is normal in caliber. There is a moderate hiatal hernia. Bones and chest wall: Epicardial pacer leads can be seen. No suspicious bony lesions. Ribs and thoracic spine appear intact throughout. Age-appropriate bony degenerative changes are seen. Thyroid gland is not well-seen. No axillary or supraclavicular adenopathy. Abdomen: There is reflux of contrast seen into the IVC and into the hepatic arteries. Cholecystectomy clips are seen. There is a stable hyperdense cyst seen at the superior pole of the left kidney posteriorly that measures 2 cm. The visualized portions of the upper abdominal structures are otherwise unremarkable for imaging technique. IMPRESSION: Negative for pulmonary embolism. Cardiomegaly and reflux of contrast noted into the inferior vena cava and into the hepatic veins. Please correlate with patient presentation, physical examination findings, and laboratory values for congestive heart failure. Postoperative changes are seen, with sternotomy. Epicardial pacer leads and cardiac stents can be seen. Moderate centrilobular emphysematous changes are seen. Incidental note is made of: Moderate hiatal hernia Cholecystectomy Stable left kidney hyperdense cyst Dictated by: Hernando Lake M.D. on 01/16/2019 at 10:29 Chest x-ray: Radiologist's impression: PROCEDURE: XR CHEST 1V INDICATIONS: short of breath and chest pain TECHNIQUE: One view of the chest was acquired. COMPARISON: [facility], CT, ANGIO CHEST ABDOMEN PELVIS, 11/06/2017, 18:40. [facility], CT, PE STUDY (CTA CHEST), 07/11/2017, 12:09. [facility], CR, CHEST 2 VIEW, 12/22/2017, 21:38. [facility], CR, XR CHEST 1V, 04/17/2018, 12:47. [facility], CR, XR CHEST 1V, 07/07/2018, 13:14. [facility], CR, XR CHEST 1V, 11/04/2018, 5:11. FINDINGS: Surgical changes and devices: Sternotomy wires are seen. Lungs and pleura: Low lung volumes are noted. This causes a crowded appearance to the lung markings and limits evaluation. Blunting of both costophrenic angles can be seen. Interstitial prominence is seen. Interstitial prominence is seen throughout. Mediastinum: The cardiac contours are mildly to moderately enlarged. The aorta demonstrates calcification and tortuosity. Bones and chest wall: No suspicious bony lesions. Age-appropriate bony degenerative changes are seen. Overlying soft tissues appear unremarkable. IMPRESSION: Cardiomegaly, interstitial prominence, and bilateral pleural effusions. Please correlate with patient presentation, physical examination findings, and laboratory values for congestive heart failure. Postoperative and degenerative changes are seen. Dictated by: Hernando Lake M.D. on 01/16/2019 at 8:57 ECG Data Attestation: I personally reviewed and interpreted this ECG as follows: Prior ECG tracings: available for review Interpretation: EKG 1.: Sinus rhythm rate [address] changes right bundle-branch block noted EKG 2. [place] rate [address] changes MDM Narrative Medical decision making narrative: Patient did not have much improvement with DuoNeb. Patient's BNP is elevated in the 700 which is much higher than her baseline. She does seem to have fluid on her x-ray as well. She actually states that she does not take her hydrochlorothiazide as recommended. In fact she has not taken it for maybe the last 4-5 days. She is given IV Lasix. This seems to be more CHF rather than COPD. CT for PE was negative. She was given IV Lasix and urinated many times in the ED. She is clinically better. No more conversational dyspnea. Overall feeling much better. I will put her on Lasix for the next few days while at home strongly recommended that she restart taking her home medication as prescribed. Discharge Plan Departure Patient Disposition: Home Clinical Impression: Congestive heart failure Qualifiers: Heart failure type: unspecified Heart failure chronicity: acute Qualified Code(s): I50.9 - Heart failure, unspecified Discharge Date/Time: 01/16/19 13:31 Interventions: ED Discharge Assessment Last Done: 01/16/19 13:30 Instructions: DI for Heart Failure Activity Restrictions/Additional Instructions: *You have been diagnosed with congestive heart failure *What to do: Please be sure to take all your medications as they are prescribed and instructed. Stop when a doctor tells you to stop *Continue to take medications as directed Lasix 20 mg twice a day for 3 days--> SENT TO [facility] [place] (take first thing in the morning and then early afternoon) *Follow up with your primary care provider in 2-3 days *Return to ER if you should have increasing shortness of breath, fever, worsening chest pain or any new, worsening or concerning symptoms Prescriptions: New furosemide [Lasix] 20 mg tablet 20 mg PO DAILY Qty: 5 RF: 0 furosemide [Lasix] 20 mg tablet 20 mg PO BID Qty: 6 RF: 0 No Action tiotropium bromide [Spiriva with HandiHaler] 18 MCG capsule, w/inhalation device 1 puff INH DAILY Qty: 0 RF: 0 aspirin 81 MG tablet,delayed release (DR/EC) 81 mg PO QDAY Qty: 0 RF: 0 lisinopril 40 mg Tablet 40 mg PO DAILY RF: 0 atorvastatin [Lipitor] 20 mg Tablet 40 mg PO BEDTIME Qty: 180 RF: 0 prednisone 10 mg tablet 1 dose PO DIRECTED RF: 0 levothyroxine 75 mcg tablet 75 mcg PO DAILY RF: 0 albuterol sulfate [Ventolin HFA] 90 mcg/actuation HFA aerosol inhaler 2 puff Inhalation Q4H PRN (Reason: Shortness Of Breath) RF: 0 triamterene-hydrochlorothiazid 37.5-25 mg tablet 1 tab PO DAILY RF: 0 fluticasone propion-salmeterol [Advair Diskus] 250-50 mcg/dose Blister With Device 1 inh INHALATION BID RF: 0 ipratropium bromide [Atrovent HFA] 17 mcg/actuation Hfa Aerosol Inhaler 2 puff Inhalation QID RF: 0 omega 2-ter-gxy-fish oil [Fish Oil] 1,000 mg (120 mg-180 mg) Capsule 1,000 mg PO DAILY RF: 0 nitroglycerin [Nitrostat] 0.4 mg Tablet, Sublingual 0.4 mg SUBLINGUAL Q5-15M PRN (Reason: Chest Pain) RF: 0 fluticasone propionate [Flonase Allergy Relief] 50 mcg/actuation [place],Suspension 1 spray Intranasal BID PRN (Reason: Allergy Symptoms) RF: 0 vitamin E 400 unit Capsule 400 unit PO DAILY RF: 0 multivitamin Tablet,Chewable 1 tab PO DAILY RF: 0 ipratropium-albuterol 0.5 mg-3 mg(2.5 mg base)/3 mL solution for nebulization 3 ml INHALATION Q6-8H PRN (Reason: shortness of breath or wheezing) Qty: 90 RF: 0 prednisone 20 mg tablet 20 mg PO DAILY Qty: 5 RF: 0 Referrals: Allie Fleming MD [Primary Care Provider] -
[2019-01-16] MEDS: ASPIRIN 81 MG TAB 324 MG PO (09:30)
--- NOTE | 2019-01-16 09:31 | ED_ITS ---
HPI - SOB/Dyspnea General Chief Complaint: Shortness of Breath/Dyspnea Stated Complaint: copd trouble breathing/heavy Time Seen by Provider: 01/16/19 09:18 Source: patient Mode of arrival: ambulatory Limitations: no limitations History of Present Illness Patient is a 83-year-old female who has a history of COPD as coronary artery disease, and infrarenal aneurysm presenting with left-sided chest heaviness shortness of breath. She says that she has been traveling recently her grandchildren graduation. She has been using her nebulizer without much relief. Today she says that the pain and discomfort is worse. She denies any productiv e or fever. MD Complaint: shortness of breath, cough and chest pain Onset (ago): day(s) Context: occurred during exertion Consistency/Duration: constant Relieving factors: nothing Known history of: COPD Related Data Home Medications Medication Instructions Recorded Confirmed tiotropium bromide [Spiriva with 1 puff INH DAILY #0 04/28/17 08/22/18 HandiHaler] aspirin 81 mg PO QDAY #0 07/11/17 08/22/18 lisinopril 40 mg PO DAILY 04/19/18 08/22/18 albuterol sulfate [Ventolin HFA] 2 puff INHALATION Q4H PRN 07/07/18 08/22/18 fluticasone propion-salmeterol 1 inh INHALATION BID 07/07/18 08/22/18 [Advair Diskus] fluticasone propionate [Flonase 1 spray INTRANASAL BID PRN 07/07/18 08/22/18 Allergy Relief] ipratropium bromide [Atrovent HFA] 2 puff INHALATION QID 07/07/18 08/22/18 levothyroxine 75 mcg PO DAILY 07/07/18 08/22/18 multivitamin 1 tab PO DAILY 07/07/18 08/22/18 nitroglycerin [Nitrostat] 0.4 mg SUBLINGUAL Q5-15M PRN 07/07/18 08/22/18 omega 5-oki-kcj-fish oil [Fish Oil] 1,000 mg PO DAILY 07/07/18 08/22/18 prednisone 1 dose PO DIRECTED 07/07/18 08/22/18 triamterene-hydrochlorothiazid 1 tab PO DAILY 07/07/18 08/22/18 vitamin E 400 unit PO DAILY 07/07/18 08/22/18 Previous Rx's Medication Instructions Recorded atorvastatin [Lipitor] 40 mg PO BEDTIME #180 tab 04/20/18 ipratropium-albuterol 3 ml INHALATION Q6-8H PRN #90 ml 11/04/18 prednisone 20 mg PO DAILY #5 tab 11/04/18 furosemide [Lasix] 20 mg PO BID #6 tab 01/16/19 furosemide [Lasix] 20 mg PO DAILY #5 tab 01/16/19 Allergies Allergy/AdvReac Type Severity Reaction Status Date / Time acarbose Allergy Intermediate Abdominal Verified 01/16/19 09:12 Pain amlodipine Allergy Intermediate Verified 01/16/19 09:12 chlorthalidone Allergy Intermediate Redness of Verified 01/16/19 09:12 Skin doxazosin [From Cardura] Allergy Intermediate Rash Verified 01/16/19 09:12 doxycycline Allergy Intermediate Rash Verified 01/16/19 09:12 gemfibrozil Allergy Intermediate Rash Verified 01/16/19 09:12 levofloxacin Allergy Intermediate Rash Verified 01/16/19 09:12 losartan Allergy Intermediate Rash Verified 01/16/19 09:12 metoprolol Allergy Intermediate Verified 01/16/19 09:12 montelukast [From Singulair] Allergy Intermediate Difficulty Verified 01/16/19 09:12 Breathing nifedipine Allergy Intermediate Chills Verified 01/16/19 09:12 Sulfa (Sulfonamide Allergy Intermediate rash Verified 01/16/19 09:12 Antibiotics) sulfamethoxazole Allergy Intermediate Rash Verified 01/16/19 09:12 [From Bactrim] trimethoprim [From Bactrim] Allergy Intermediate Rash Verified 01/16/19 09:12 budesonide [From Symbicort] Allergy Mild Anxiety Verified 01/16/19 09:12 carvedilol Allergy Mild Rash Verified 01/16/19 09:12 choline fenofibrate Allergy Mild Gastrointestinal Verified 01/16/19 09:12 [From Trilipix] Upset formoterol [From Symbicort] Allergy Mild Anxiety Verified 01/16/19 09:12 Review of Systems Constitutional Denies chills, Denies fever(s), Denies lethargy and Denies weakness Eyes Denies change in vision, Denies eye discharge, Denies irritation and Denies loss of vision ENT Ears, Nose, Mouth, and Throat: Denies change in voice, Denies neck pain and Denies sore throat Cardiovascular Reports chest pain Respiratory Reports as per HPI Gastrointestinal Gastrointestinal: Denies abdominal pain, Denies change in bowel habits, Denies diarrhea, Denies nausea and Denies vomiting Genitourinary Denies hematuria, Denies flank pain, Denies urinary incontinence and Denies urinary urgency Musculoskeletal Denies neck pain Integumentary/Breasts Denies pruritus, Denies erythema, Denies rash and Denies wounds Neurologic Denies loss of vision and Denies weakness [facility] Medical History Unstable angina (Chronic) Elevated TSH (Chronic) Aneurysm of infrarenal abdominal aorta (Chronic) CAD (coronary artery disease) (Chronic) COPD (chronic obstructive pulmonary disease) with emphysema (Chronic) HTN (hypertension) (Chronic) Hyperlipidemia (Chronic) Valvular heart disease (Chronic) Bilateral carpal tunnel syndrome (Resolved) Surgical History H/O hysterectomy with oophorectomy (Resolved) H/O three vessel coronary artery bypass (Resolved) Hx of heart artery stent (Resolved) Status post cholecystectomy (Resolved) Social History household members: children Smoking Status: Former smoker alcohol intake: never Social History household members: children Smoking Status: Former smoker alcohol intake: never Exam Initial Vital Signs Initial Vital Signs: Vital Signs Temperature 97.6 F 01/16/19 09:08 Pulse Rate 84 01/16/19 09:08 Respiratory Rate 22 01/16/19 09:08 Blood Pressure 170/84 H 01/16/19 09:08 Pulse Oximetry 98 01/16/19 09:08 GENERAL: Very pleasant elderly female in moderate respiratory distress HEENT: Head atraumatic,EOMI, pupils reactive, face symmetric, [moist] mucous membranes CARDIOVASCULAR: Regular rate and rhythm without murmurs, rubs or gallops. RESPIRATORY: Decreased breath sounds bilaterally no wheezing does speak in full sentences but does have obvious conversational dyspnea ABDOMEN: Soft, nontender. Normoactive bowel sounds all 4 quadrants. No guarding or rebound. : No CVA tenderness EXTREMITIES: Normal range of motion, no clubbing or edema. Neurovascularly intact NEUROLOGICAL: Alert and oriented x4.Normal gait and speech. Cranial nerves II through XII grossly intact. SKIN: Warm, dry, no laceration, no petechiae, no rashes or lesions. Course Orders Ordered: ED Orders 01/16/19 09:19 XR chest 1V Stat 01/16/19 09:35 Comprehensive Metabolic Panel Stat Lipase Stat Troponin & CK Cardiac Panel Stat 01/16/19 10:01 CT angio chest PE protocol Stat 01/16/19 10:05 B Type Natriuretic Peptide Stat Complete Blood Count AUTO DIFF Stat Partial Thromboplastin Time Stat Prothrombin Time INR Stat 01/16/19 12:00 Troponin I Stat EKG-12 Lead Stat 01/16/19 12:02 EKG-12 Lead Stat Discontinued Medications Albuterol/Ipratropium (Duoneb) 3 ml INH NOW ONE Stop: 01/16/19 09:20 Last Admin: 01/16/19 09:32 Dose: 3 ml Aspirin (Aspirin Chew) 324 mg PO NOW ONE Stop: 01/16/19 09:20 Last Admin: 01/16/19 09:30 Dose: 324 mg Furosemide (Lasix) 40 mg IV NOW ONE Stop: 01/16/19 10:41 Last Admin: 01/16/19 10:44 Dose: 40 mg Methylprednisolone (Solu-Medrol 125 Mg Vial) 125 mg IV NOW ONE Stop: 01/16/19 10:02 Last Admin: 01/16/19 10:20 Dose: 125 mg Vital Signs - 8 hr 01/16/19 09:08 01/16/19 09:24 01/16/19 09:34 Temperature 97.6 F Pulse Rate 84 79 88 Respiratory Rate 22 22 20 Blood Pressure 170/84 H Blood Pressure [Right Arm] 175/73 H Pulse Oximetry 98 100 92 01/16/19 09:38 01/16/19 10:41 01/16/19 13:00 Temperature Pulse Rate 88 91 H 87 Respiratory Rate 22 25 H 21 Blood Pressure Blood Pressure [Right Arm] 152/79 H 170/69 H 167/75 H Pulse Oximetry 95 97 96 01/16/19 13:30 Temperature Pulse Rate 80 Respiratory Rate 22 Blood Pressure 178/58 H Blood Pressure [Right Arm] Pulse Oximetry 95 MDM - SOB/Dyspnea Lab Data Attestation: I reviewed the patient's lab results. Result diagrams: 01/16/19 10:05 01/16/19 09:35 Lab Results 01/16/19 01/16/19 01/16/19 Range/Units 09:35 10:05 10:05 WBC 8.3 (4.5-11.0) X10^3/uL RBC 5.37 H (4.0-5.2) X10^6/uL Hgb 14.8 (12.0-16.0) g/dL Hct 45.4 (36-46) % MCV 84.6 (80-100) fL MCH 27.6 (26-34) PG MCHC 32.7 (30-36) % RDW 16.5 H (11.6-14.8) % Plt Count 199 (150-400) X10^3/uL Neut % (Auto) 72.5 (50-75) % Lymph % (Auto) 17.1 L (25-40) % [place] % (Auto) 7.6 (3-14) % Eos % (Auto) 1.9 L (2-4) % Baso % (Auto) 0.9 (0-2) % Neut # (Auto) 6000 (0861-0019) /uL Lymph # (Auto) 1400 (7510-2310) /uL [place] # (Auto) 600 (0-900) /uL Eos # (Auto) 200 (0-450) /uL Baso # (Auto) 100 (0-100) /uL PT 11.2 (10.1-12.7) SECONDS INR 1.0 (0.9-1.3) APTT 29 (26.4-36.2) SECONDS Sodium 137 (137-145) mmol/L Potassium 4.3 (3.4-5.1) mmol/L Chloride 104 (98-107) mmol/L Carbon Dioxide 26 (22-32) mmol/L BUN 25 H (7-17) mg/dL Creatinine 0.90 (0.52-1.04) mg/dL Estimated GFR 59.9 L (>60) mL/min BUN/Creatinine Ratio 27.8 H (6-22) Glucose 106 (80-110) mg/dL Calcium 9.7 (8.4-10.2) mg/dL Total Bilirubin 1.2 (0.2-1.3) mg/dL AST 21 (14-36) IU/L ALT 25 (9-52) IU/L Alkaline Phosphatase 53 (38-126) U/L Total Creatine Kinase 28 L (30-135) U/L CK-MB (CK-2) TNP CK-MB (CK-2) Rel Index TNP Troponin I 0.034 (0.01-0.034) ng/mL B-Natriuretic Peptide 710 H (<100) Total Protein 6.6 (6.3-8.2) g/dL Albumin 3.9 (3.5-5.0) g/dL Globulin 2.7 (1.7-4.1) g/dL Albumin/Globulin Ratio 1.4 (1.0-2.8) Lipase 61 (23-300) U/L 01/16/19 Range/Units 12:00 WBC (4.5-11.0) X10^3/uL RBC (4.0-5.2) X10^6/uL Hgb (12.0-16.0) g/dL Hct (36-46) % MCV (80-100) fL MCH (26-34) PG MCHC (30-36) % RDW (11.6-14.8) % Plt Count (150-400) X10^3/uL Neut % (Auto) (50-75) % Lymph % (Auto) (25-40) % [place] % (Auto) (3-14) % Eos % (Auto) (2-4) % Baso % (Auto) (0-2) % Neut # (Auto) (0040-3630) /uL Lymph # (Auto) (7782-8421) /uL [place] # (Auto) (0-900) /uL Eos # (Auto) (0-450) /uL Baso # (Auto) (0-100) /uL PT (10.1-12.7) SECONDS INR (0.9-1.3) APTT (26.4-36.2) SECONDS Sodium (137-145) mmol/L Potassium (3.4-5.1) mmol/L Chloride (98-107) mmol/L Carbon Dioxide (22-32) mmol/L BUN (7-17) mg/dL Creatinine (0.52-1.04) mg/dL Estimated GFR (>60) mL/min BUN/Creatinine Ratio (6-22) Glucose (80-110) mg/dL Calcium (8.4-10.2) mg/dL Total Bilirubin (0.2-1.3) mg/dL AST (14-36) IU/L ALT (9-52) IU/L Alkaline Phosphatase (38-126) U/L Total Creatine Kinase (30-135) U/L CK-MB (CK-2) CK-MB (CK-2) Rel Index Troponin I 0.032 (0.01-0.034) ng/mL B-Natriuretic Peptide (<100) Total Protein (6.3-8.2) g/dL Albumin (3.5-5.0) g/dL Globulin (1.7-4.1) g/dL Albumin/Globulin Ratio (1.0-2.8) Lipase (23-300) U/L Urine Dip Bedside Urine Glucose Negative Bedside Urine Bilirubin - Negative Bedside Urine Ketone - Negative Urine Specific [place] 1.025 Bedside Urine Occult Blood - Negative Bedside Urine pH 6.0 Bedside Urine Protein - Negative Bedside Urine Urobilinogen - Negative Bedside Urine Nitrite - Negative Bedside Urine Leukocytes - Negative Esterase Imaging Data CT scan - chest: Radiologist's impression: PROCEDURE: CT ANGIO CHEST PE PROTOCOL INDICATIONS: chest pain and short of breath TECHNIQUE: After the administration of intravenous contrast, 2 mm thick sections acquired from the pulmonary apices to the posterior costophrenic angles. 3-dimensional maximum intensity projection (MIP) coronal and sagittal reformats were then acquired through the thorax. For radiation dose reduction, the following was used: automated exposure con trol, adjustment of mA and/or kV according to patient size. COMPARISON: [facility], CT, ABDOMEN/PELVIS WITH CONTRAST, 06/18/2017, 8:29. [facility], CT, ANGIO CHEST ABDOMEN PELVIS, 11/06/2017, 18:40. [facility], CT, PE STUDY (CTA CHEST), 07/11/2017, 12:09. [facility], CR, CHEST 2 VIEW, 12/22/2017, 21:38. [facility], CR, XR CHEST 1V, 01/16/2019, 9:32. FINDINGS: Image quality: Excellent. Pulmonary arteries: Pulmonary arteries are normal in size, and demonstrate no intraluminal filling defects to suggest central pulmonary embolism. Lungs and pleura: Moderate centrilobular emphysematous changes are seen. These are more prominent at the lung apices than at the lung bases. No pleural effusions or pneumothorax. Central and peripheral airways are patent. Mediastinum: Heart size is mildly to moderately enlarged, without pericardial effusion. Cardiac stents are seen. No mediastinal or hilar adenopathy. Thoracic aorta is normal in caliber and enhancement. Esophagus is normal in caliber. There is a moderate hiatal hernia. Bones and chest wall: Epicardial pacer leads can be seen. No suspicious bony lesions. Ribs and thoracic spine appear intact throughout. Age-appropriate bony degenerative changes are seen. Thyroid gland is not well-seen. No axillary or supraclavicular adenopathy. Abdomen: There is reflux of contrast seen into the IVC and into the hepatic arteries. Cholecystectomy clips are seen. There is a stable hyperdense cyst seen at the superior pole of the left kidney posteriorly that measures 2 cm. The visualized portions of the upper abdominal structures are otherwise unremarkable for imaging technique. IMPRESSION: Negative for pulmonary embolism. Cardiomegaly and reflux of contrast noted into the inferior vena cava and into the hepatic veins. Please correlate with patient presentation, physical examination findings, and laboratory values for congestive heart failure. Postoperative changes are seen, with sternotomy. Epicardial pacer leads and cardiac stents can be seen. Moderate centrilobular emphysematous changes are seen. Incidental note is made of: Moderate hiatal hernia Cholecystectomy Stable left kidney hyperdense cyst Dictated by: Hernando Lake M.D. on 01/16/2019 at 10:29 Chest x-ray: Radiologist's impression: PROCEDURE: XR CHEST 1V INDICATIONS: short of breath and chest pain TECHNIQUE: One view of the chest was acquired. COMPARISON: [facility], CT, ANGIO CHEST ABDOMEN PELVIS, 11/06/2017, 18:40. [facility], CT, PE STUDY (CTA CHEST), 07/11/2017, 12:09. [facility], CR, CHEST 2 VIEW, 12/22/2017, 21:38. [facility], CR, XR CHEST 1V, 04/17/2018, 12:47. [facility], CR, XR CHEST 1V, 07/07/2018, 13:14. [facility], CR, XR CHEST 1V, 11/04/2018, 5:11. FINDINGS: Surgical changes and devices: Sternotomy wires are seen. Lungs and pleura: Low lung volumes are noted. This causes a crowded appearance to the lung markings and limits evaluation. Blunting of both costophrenic angles can be seen. Interstitial prominence is seen. Interstitial prominence is seen throughout. Mediastinum: The cardiac contours are mildly to moderately enlarged. The aorta demonstrates calcification and tortuosity. Bones and chest wall: No suspicious bony lesions. Age-appropriate bony degenerative changes are seen. Overlying soft tissues appear unremarkable. IMPRESSION: Cardiomegaly, interstitial prominence, and bilateral pleural effusions. Please correlate with patient presentation, physical examination findings, and laboratory values for congestive heart failure. Postoperative and degenerative changes are seen. Dictated by: Hernando Lake M.D. on 01/16/2019 at 8:57 ECG Data Attestation: I personally reviewed and interpreted this ECG as follows: Prior ECG tracings: available for review Interpretation: EKG 1.: Sinus rhythm rate [address] changes right bundle-branch block noted EKG 2. [place] rate [address] changes MDM Narrative Medical decision making narrative: Patient did not have much improvement with DuoNeb. Patient's BNP is elevated in the 700 which is much higher than her baseline. She does seem to have fluid on her x-ray as well. She actually states that she does not take her hydrochlorothiazide as recommended. In fact she has not taken it for maybe the last 4-5 days. She is given IV Lasix. This seems to be more CHF rather than COPD. CT for PE was negative. She was given IV Lasix and urinated many times in the ED. She is clinically better. No more conversational dyspnea. Overall feeling much better. I will put her on Lasix for the next few days while at home strongly recommended that she restart taking her home medication as prescribed. Discharge Plan Departure Patient Disposition: Home Clinical Impression: Congestive heart failure Qualifiers: Heart failure type: unspecified Heart failure chronicity: acute Qualified Code(s): I50.9 - Heart failure, unspecified Discharge Date/Time: 01/16/19 13:31 Interventions: ED Discharge Assessment Last Done: 01/16/19 13:30 Instructions: DI for Heart Failure Activity Restrictions/Additional Instructions: *You have been diagnosed with congestive heart failure *What to do: Please be sure to take all your medications as they are prescribed and instructed. Stop when a doctor tells you to stop *Continue to take medications as directed Lasix 20 mg twice a day for 3 days--> SENT TO [facility] IN [place] (take first thing in the morning and then early afternoon) *Follow up with your primary care provider in 2-3 days *Return to ER if you should have increasing shortness of breath, fever, worsening chest pain or any new, worsening or concerning symptoms Prescriptions: New furosemide [Lasix] 20 mg tablet 20 mg PO DAILY Qty: 5 RF: 0 furosemide [Lasix] 20 mg tablet 20 mg PO BID Qty: 6 RF: 0 No Action tiotropium bromide [Spiriva with HandiHaler] 18 MCG capsule, w/inhalation device 1 puff INH DAILY Qty: 0 RF: 0 aspirin 81 MG tablet,delayed release (DR/EC) 81 mg PO QDAY Qty: 0 RF: 0 lisinopril 40 mg Tablet 40 mg PO DAILY RF: 0 atorvastatin [Lipitor] 20 mg Tablet 40 mg PO BEDTIME Qty: 180 RF: 0 prednisone 10 mg tablet 1 dose PO DIRECTED RF: 0 levothyroxine 75 mcg tablet 75 mcg PO DAILY RF: 0 albuterol sulfate [Ventolin HFA] 90 mcg/actuation HFA aerosol inhaler 2 puff Inhalation Q4H PRN (Reason: Shortness Of Breath) RF: 0 triamterene-hydrochlorothiazid 37.5-25 mg tablet 1 tab PO DAILY RF: 0 fluticasone propion-salmeterol [Advair Diskus] 250-50 mcg/dose Blister With Device 1 inh INHALATION BID RF: 0 ipratropium bromide [Atrovent HFA] 17 mcg/actuation Hfa Aerosol Inhaler 2 puff Inhalation QID RF: 0 omega 8-qke-nma-fish oil [Fish Oil] 1,000 mg (120 mg-180 mg) Capsule 1,000 mg PO DAILY RF: 0 nitroglycerin [Nitrostat] 0.4 mg Tablet, Sublingual 0.4 mg SUBLINGUAL Q5-15M PRN (Reason: Chest Pain) RF: 0 fluticasone propionate [Flonase Allergy Relief] 50 mcg/actuation [place],Suspension 1 spray Intranasal BID PRN (Reason: Allergy Symptoms) RF: 0 vitamin E 400 unit Capsule 400 unit PO DAILY RF: 0 multivitamin Tablet,Chewable 1 tab PO DAILY RF: 0 ipratropium-albuterol 0.5 mg-3 mg(2.5 mg base)/3 mL solution for nebulization 3 ml INHALATION Q6-8H PRN (Reason: shortness of breath or wheezing) Qty: 90 RF: 0 prednisone 20 mg tablet 20 mg PO DAILY Qty: 5 RF: 0 Referrals: Allie Fleming MD [Primary Care Provider] -
[2019-01-16] MEDS: ALBUTEROL/IPRATROPIUM 3 ML AMPUL INH (09:32)
[2019-01-16 09:56] LABS: Alanine Aminotransferase 25 IU/L (9-52); Albumin 3.9 g/dL (3.5-5.0); Albumin Globulin Ratio 1.4 (1.0-2.8); Alkaline Phosphatase 53 U/L (38-126); Aspartate Aminotransferase 21 IU/L (14-36); BUN Creatinine Ratio 27.8 (6-22); Bilirubin Total 1.2 mg/dL (0.2-1.3); Blood Urea Nitrogen 25 mg/dL (7-17); Calcium 9.7 mg/dL (8.4-10.2); Carbon Dioxide 26 mmol/L (22-32); Chloride 104 mmol/L (98-107); Estimated Glomerular Filt Rate 59.9 mL/min (>60); Globulin 2.7 g/dL (1.7-4.1); Glucose 106 mg/dL (80-110); Total Protein 6.6 g/dL (6.3-8.2)
--- NOTE | 2019-01-16 10:01 | DI.CT.S_ITS ---
PROCEDURE: CT ANGIO CHEST PE PROTOCOL INDICATIONS: chest pain and short of breath TECHNIQUE: After the administration of intravenous contrast, 2 mm thick sections acquired from the pulmonary apices to the posterior costophrenic angles. 3-dimensional maximum intensity projection (MIP) coronal and sagittal reformats were then acquired through the thorax. For radiation dose reduction, the following was used: automated exposure control, adjustment of mA and/or kV according to patient size. COMPARISON: [facility], CT, ABDOMEN/PELVIS WITH CONTRAST, 06/18/2017, 8:29. [facility], CT, ANGIO CHEST ABDOMEN PELVIS, 11/06/2017, 18:40. [facility], CT, PE STUDY (CTA CHEST), 07/11/2017, 12:09. [facility], CR, CHEST 2 VIEW, 12/22/2017, 21:38. [facility], CR, XR CHEST 1V, 01/16/2019, 9:32. FINDINGS: Image quality: Excellent. Pulmonary arteries: Pulmonary arteries are normal in size, and demonstrate no intraluminal filling defects to suggest central pulmonary embolism. Lungs and pleura: Moderate centrilobular emphysematous changes are seen. These are more prominent at the lung apices than at the lung bases. No pleural effusions or pneumothorax. Central and peripheral airways are patent. Mediastinum: Heart size is mildly to moderately enlarged, without pericardial effusion. Cardiac stents are seen. No mediastinal or hilar adenopathy. Thoracic aorta is normal in caliber and enhancement. Esophagus is normal in caliber. There is a moderate hiatal hernia. Bones and chest wall: Epicardial pacer leads can be seen. No suspicious bony lesions. Ribs and thoracic spine appear intact throughout. Age-appropriate bony degenerative changes are seen. Thyroid gland is not well-seen. No axillary or supraclavicular adenopathy. Abdomen: There is reflux of contrast seen into the IVC and into the hepatic arteries. Cholecystectomy clips are seen. There is a stable hyperdense cyst seen at the superior pole of the left kidney posteriorly that measures 2 cm. The visualized portions of the upper abdominal structures are otherwise unremarkable for imaging technique. IMPRESSION: Negative for pulmonary embolism. Cardiomegaly and reflux of contrast noted into the inferior vena cava and into the hepatic veins. Please correlate with patient presentation, physical examination findings, and laboratory values for congestive heart failure. Postoperative changes are seen, with sternotomy. Epicardial pacer leads and cardiac stents can be seen. Moderate centrilobular emphysematous changes are seen. Incidental note is made of: Moderate hiatal hernia Cholecystectomy Stable left kidney hyperdense cyst Dictated by: Hernando Lake M.D. on 01/16/2019 at 10:29 Approved by: Hernando Lake M.D. on 01/16/2019 at 10:38
[2019-01-16 10:08] LABS: Troponin I 0.034 ng/mL (0.01-0.034)
[2019-01-16] MEDS: methylPREDNISolone 125 MG/2 ML VIAL IV (10:20)
[2019-01-16 10:24] LABS: Prothrombin Time 11.2 SECONDS (10.1-12.7)
[2019-01-16 10:25] LABS: Creatine Kinase 28 U/L (30-135); HEMOLYSIS 30 (0-50); Lipase 61 U/L (23-300); Potassium 4.3 mmol/L (3.4-5.1); Sodium 137 mmol/L (137-145)
[2019-01-16 10:25] LABS: Add Manual Diff / Slide Review NO; Basophils Absolute Auto 100 /uL (0-100); Basophils Percent Auto 0.9 % (0-2); Eosinophils Absolute Auto 200 /uL (0-450); Eosinophils Percent Auto 1.9 % (2-4); Hematocrit 45.4 % (36-46); Hemoglobin 14.8 g/dL (12.0-16.0); Lymphocytes Absolute Auto 1400 /uL (1100-4500); Lymphocytes Percent Auto 17.1 % (25-40); Mean Corpuscular HGB Conc 32.7 % (30-36); Mean Corpuscular Hemoglobin 27.6 PG (26-34); Mean Corpuscular Volume 84.6 fL (80-100); Monocytes Absolute Auto 600 /uL (0-900); Monocytes Percent Auto 7.6 % (3-14); Neutrophils Absolute Auto 6000 /uL (1500-7000); Neutrophils Percent Auto 72.5 % (50-75); Platelet Count 199 X10^3/uL (150-400); Red Blood Cell Count 5.37 X10^6/uL (4.0-5.2); Red Cell Distribution Width 16.5 % (11.6-14.8); White Blood Cell Count 8.3 X10^3/uL (4.5-11.0)
[2019-01-16 10:27] LABS: PTT Partial Thromboplastin Tim 29 SECONDS (26.4-36.2)
[2019-01-16 10:29] LABS: B Type Natriuretic Peptide 710 (<100)
[2019-01-16] MEDS: FUROSEMIDE 40 MG/4 ML VIAL IV (10:44)
[2019-01-16 12:58] LABS: Troponin I 0.032 ng/mL (0.01-0.034)
== END 2019-01-16 13:31 | disposition home or self-care (01) ==
PROVIDERS: Emergency Provider Emergency Medicine; PCP Internal Medicine
DX: I50.9 Heart failure, unspecified (principal)
CPT/HCPCS: 36415; 36591; 71045; 71275; 80053; 81003; 82550; 83690; 83880; 84484; 85025; 85610; 85730; 93005; 93010; 94150; 94640; 96374; 96375; 99285; J1940; J2930; Q9967

== ENCOUNTER 2019-01-27 21:25 | Emergency (ER) | payer OTHER, SELFPAY ==
[2018-04-17 15:43] VITALS: BMI 20.8
[2019-01-27 21:25] VITALS: BP 163/61; PULSE 114; RESP 19; TEMP 36.6; O2SAT 94; BMI 24.4
--- NOTE | 2019-01-27 21:32 | DI.RAD.S_ITS ---
PROCEDURE: XR CHEST 1V INDICATIONS: SOB TECHNIQUE: One view of the chest was acquired. COMPARISON: [facility], CT, CT ANGIO CHEST PE PROTOCOL, 01/16/2019, 10:44. [facility], CR, XR CHEST 1V, 11/04/2018, 5:11. [facility], CR, XR CHEST 1V, 01/16/2019, 9:32. FINDINGS: Surgical changes and devices: Sternotomy and CABG. Lungs and pleura: Persistent but slightly decreased pulmonary vascularity and interstitial edema. No pleural effusions or pneumothorax. Mediastinum: Mediastinal contours appear normal. Heart size is prominent. Bones and chest wall: No suspicious bony lesions. Overlying soft tissues appear unremarkable. IMPRESSION: Persistent but slightly decreased pulmonary edema. Dictated by: Magaly Ramirez M.D. on 01/28/2019 at 8:38 Approved by: Magaly Ramirez M.D. on 01/28/2019 at 8:40
--- NOTE | 2019-01-27 21:33 | ED.GENADULT ---
HPI - General Adult General Chief complaint: Chest Pain Stated complaint: CHEST HEAVINESS Time Seen by Provider: 01/27/19 21:29 Source: patient Mode of arrival: ambulatory Limitations: no limitations History of Present Illness HPI narrative: Patient is an 83-year-old female. Has a history of COPD and CHF and coronary artery disease. She was seen here in the emergency department a couple days ago and was diagnosed with a CHF exacerbation. Was sent home with Lasix. She states over the past day she started to not feel well. Had left-sided chest tenderness. No problems breathing. No swelling. She also states that her chest hurts in her upper back hurts whenever she urinates. She is not currently on Lasix. She is taking her hydrochlorothiazide. Related Data Home Medications Medication Instructions Recorded Confirmed tiotropium bromide [Spiriva with 1 puff INH DAILY #0 04/28/17 08/22/18 HandiHaler] aspirin 81 mg PO QDAY #0 07/11/17 08/22/18 lisinopril 40 mg PO DAILY 04/19/18 08/22/18 albuterol sulfate [Ventolin HFA] 2 puff INHALATION Q4H PRN 07/07/18 08/22/18 fluticasone propion-salmeterol 1 inh INHALATION BID 07/07/18 08/22/18 [Advair Diskus] fluticasone propionate [Flonase 1 spray INTRANASAL BID PRN 07/07/18 08/22/18 Allergy Relief] ipratropium bromide [Atrovent HFA] 2 puff INHALATION QID 07/07/18 08/22/18 levothyroxine 75 mcg PO DAILY 07/07/18 08/22/18 multivitamin 1 tab PO DAILY 07/07/18 08/22/18 nitroglycerin [Nitrostat] 0.4 mg SUBLINGUAL Q5-15M PRN 07/07/18 08/22/18 omega 5-hls-nnm-fish oil [Fish Oil] 1,000 mg PO DAILY 07/07/18 08/22/18 prednisone 1 dose PO DIRECTED 07/07/18 08/22/18 triamterene-hydrochlorothiazid 1 tab PO DAILY 07/07/18 08/22/18 vitamin E 400 unit PO DAILY 07/07/18 08/22/18 Previous Rx's Medication Instructions Recorded atorvastatin [Lipitor] 40 mg PO BEDTIME #180 tab 04/20/18 ipratropium-albuterol 3 ml INHALATION Q6-8H PRN #90 ml 11/04/18 prednisone 20 mg PO DAILY #5 tab 11/04/18 furosemide [Lasix] 20 mg PO BID #6 tab 01/16/19 furosemide [Lasix] 20 mg PO DAILY #5 tab 01/16/19 nitrofurantoin monohyd/m-cryst 100 mg PO BID 5 Days #10 cap 01/28/19 [Macrobid] Allergies Allergy/AdvReac Type Severity Reaction Status Date / Time acarbose Allergy Intermediate Abdominal Verified 01/27/19 21:35 Pain amlodipine Allergy Intermediate Verified 01/27/19 21:35 chlorthalidone Allergy Intermediate Redness of Verified 01/27/19 21:35 Skin doxazosin [From Cardura] Allergy Intermediate Rash Verified 01/27/19 21:35 doxycycline Allergy Intermediate Rash Verified 01/27/19 21:35 gemfibrozil Allergy Intermediate Rash Verified 01/27/19 21:35 levofloxacin Allergy Intermediate Rash Verified 01/27/19 21:35 losartan Allergy Intermediate Rash Verified 01/27/19 21:35 metoprolol Allergy Intermediate Verified 01/27/19 21:35 montelukast [From Singulair] Allergy Intermediate Difficulty Verified 01/27/19 21:35 Breathing nifedipine Allergy Intermediate Chills Verified 01/27/19 21:35 Sulfa (Sulfonamide Allergy Intermediate rash Verified 01/27/19 21:35 Antibiotics) sulfamethoxazole Allergy Intermediate Rash Verified 01/27/19 21:35 [From Bactrim] trimethoprim [From Bactrim] Allergy Intermediate Rash Verified 01/27/19 21:35 budesonide [From Symbicort] Allergy Mild Anxiety Verified 01/27/19 21:35 carvedilol Allergy Mild Rash Verified 01/27/19 21:35 choline fenofibrate Allergy Mild Gastrointestinal Verified 01/27/19 21:35 [From Trilipix] Upset formoterol [From Symbicort] Allergy Mild Anxiety Verified 01/27/19 21:35 Review of Systems Constitutional Reports fatigue and Reports malaise Cardiovascular Reports chest pain and Denies dyspnea Respiratory Denies dyspnea Gastrointestinal Gastrointestinal: Denies abdominal pain, Denies nausea and Denies vomiting Genitourinary Reports dysuria and Reports urinary urgency Musculoskeletal Denies myalgias and Denies arthralgias Integumentary/Breasts Denies rash Neurologic Denies behavioral changes Psychiatric Denies behavioral changes Endocrine Reports fatigue Hematologic/Lymphatic Denies easy bleeding and Denies easy bruising FOR[facility]LY [facility] Medical History Unstable angina (Chronic) Elevated TSH (Chronic) Aneurysm of infrarenal abdominal aorta (Chronic) CAD (coronary artery disease) (Chronic) COPD (chronic obstructive pulmonary disease) with emphysema (Chronic) HTN (hypertension) (Chronic) Hyperlipidemia (Chronic) Valvular heart disease (Chronic) Bilateral carpal tunnel syndrome (Resolved) Social History household members: children Smoking Status: Former smoker alcohol intake: never Exam Initial Vital Signs Initial Vital Signs: Vital Signs Temperature 97.8 F 01/27/19 21:25 Pulse Rate 114 H 01/27/19 21:25 Respiratory Rate 19 01/27/19 21:25 Blood Pressure 163/61 H 01/27/19 21:25 Pulse Oximetry 94 01/27/19 21:25 Const General: cooperative, comfortable, well developed, well groomed and No acute distress Orientation: alert, awake and oriented x3 HENMT Head: normal to inspection and normocephalic Resp Effort & Inspection: normal respiratory effort Auscultation: clear to auscultation bilaterally Cardio Rate: tachycardic Rhythm: regular rhythm Pulses: radial pulses present GI Inspection: non-distended Palpation: soft and No firm Skin Lesions: no lesions Rashes: no rashes Neuro General: alert, awake and oriented x3 Extrem General: normal to inspection and capillary refill normal Psych Appearance: grossly normal and well kempt Course Orders Ordered: ED Orders 01/27/19 21:32 XR chest 1V Stat EKG-12 Lead Stat 01/27/19 21:50 B Type Natriuretic Peptide Stat Complete Blood Count AUTO DIFF Stat Comprehensive Metabolic Panel Stat Lipase Stat Troponin I Stat 01/27/19 22:05 Urine Culture Stat Urine Microscopic Stat 01/27/19 23:55 Troponin I Stat Discontinued Medications Nitrofurantoin Macrocrystals (Macrobid 100 Mg Capsule) 100 mg PO NOW ONE Stop: 01/27/19 23:29 Last Admin: 01/27/19 23:32 Dose: 100 mg Vital Signs - 8 hr 01/27/19 21:25 01/27/19 22:18 Temperature 97.8 F Pulse Rate 114 H 102 H Respiratory Rate 19 27 H Blood Pressure 163/61 H Blood Pressure [Right Arm] 139/51 L Pulse Oximetry 94 93 Medical Decision Making Lab Data Lab results reviewed: Yes I reviewed the patient's lab results. Result diagrams: 01/27/19 21:50 01/27/19 21:50 Lab Results 01/27/19 01/27/19 01/27/19 Range/Units 21:50 21:50 22:05 WBC 9.4 (4.5-11.0) X10^3/uL RBC 5.02 (4.0-5.2) X10^6/uL Hgb 14.0 (12.0-16.0) g/dL Hct 41.7 (36-46) % MCV 83.1 (80-100) fL MCH 27.9 (26-34) PG MCHC 33.6 (30-36) % RDW 15.7 H (11.6-14.8) % Plt Count 204 (150-400) X10^3/uL Neut % (Auto) 81.1 H (50-75) % Lymph % (Auto) 9.2 L (25-40) % [place] % (Auto) 6.8 (3-14) % Eos % (Auto) 1.5 L (2-4) % Baso % (Auto) 1.4 (0-2) % Neut # (Auto) 7600 H (6005-1197) /uL Lymph # (Auto) 900 L (8838-7525) /uL [place] # (Auto) 600 (0-900) /uL Eos # (Auto) 100 (0-450) /uL Baso # (Auto) 100 (0-100) /uL Sodium 133 L (137-145) mmol/L Potassium 4.4 (3.4-5.1) mmol/L Chloride 99 (98-107) mmol/L Carbon Dioxide 27 (22-32) mmol/L BUN 24 H (7-17) mg/dL Creatinine 1.00 (0.52-1.04) mg/dL Estimated GFR 53.1 L (>60) mL/min BUN/Creatinine Ratio 24.0 H (6-22) Glucose 110 (80-110) mg/dL Calcium 10.3 H (8.4-10.2) mg/dL Total Bilirubin 1.3 (0.2-1.3) mg/dL AST 24 (14-36) IU/L ALT 21 (9-52) IU/L Alkaline Phosphatase 71 (38-126) U/L Troponin I 0.025 (0.01-0.034) ng/mL B-Natriuretic Peptide 138 H (<100) Total Protein 7.1 (6.3-8.2) g/dL Albumin 4.1 (3.5-5.0) g/dL Globulin 3.0 (1.7-4.1) g/dL Albumin/Globulin Ratio 1.4 (1.0-2.8) Lipase 108 (23-300) U/L Urine RBC >100/hpf H (0-5/HPF) Urine WBC >100/hpf H (0-5/HPF) Urine Bacteria Many (>30) H (None) Ur Culture Indicated? Specimen cultured 01/27/19 Range/Units 23:55 WBC (4.5-11.0) X10^3/uL RBC (4.0-5.2) X10^6/uL Hgb (12.0-16.0) g/dL Hct (36-46) % MCV (80-100) fL MCH (26-34) PG MCHC (30-36) % RDW (11.6-14.8) % Plt Count (150-400) X10^3/uL Neut % (Auto) (50-75) % Lymph % (Auto) (25-40) % [place] % (Auto) (3-14) % Eos % (Auto) (2-4) % Baso % (Auto) (0-2) % Neut # (Auto) (0359-9067) /uL Lymph # (Auto) (7239-6156) /uL Baxter # (Auto) (0-900) /uL Eos # (Auto) (0-450) /uL Baso # (Auto) (0-100) /uL Sodium (137-145) mmol/L Potassium (3.4-5.1) mmol/L Chloride (98-107) mmol/L Carbon Dioxide (22-32) mmol/L BUN (7-17) mg/dL Creatinine (0.52-1.04) mg/dL Estimated GFR (>60) mL/min BUN/Creatinine Ratio (6-22) Glucose (80-110) mg/dL Calcium (8.4-10.2) mg/dL Total Bilirubin (0.2-1.3) mg/dL AST (14-36) IU/L ALT (9-52) IU/L Alkaline Phosphatase (38-126) U/L Troponin I 0.026 (0.01-0.034) ng/mL B-Natriuretic Peptide (<100) Total Protein (6.3-8.2) g/dL Albumin (3.5-5.0) g/dL Globulin (1.7-4.1) g/dL Albumin/Globulin Ratio (1.0-2.8) Lipase (23-300) U/L Urine RBC (0-5/HPF) Urine WBC (0-5/HPF) Urine Bacteria (None) Ur Culture Indicated? Urine Dip Bedside Urine Glucose Negative Bedside Urine Bilirubin - Negative Bedside Urine Ketone - Negative Urine Specific [place] 1.020 Bedside Urine Occult Blood +++ Bedside Urine pH 6.0 Bedside Urine Protein + 30 Bedside Urine Urobilinogen +/- 1mg Bedside Urine Nitrite + Positive Bedside Urine Leukocytes +++ 500 Esterase Point of care testing: Urine Dip Bedside Urine Glucose Negative Bedside Urine Bilirubin - Negative Bedside Urine Ketone - Negative Urine Specific [place] 1.020 Bedside Urine Occult Blood +++ Bedside Urine pH 6.0 Bedside Urine Protein + 30 Bedside Urine Urobilinogen +/- 1mg Bedside Urine Nitrite + Positive Bedside Urine Leukocytes +++ 500 Esterase Imaging Data Chest x-ray: Attestation: I personally reviewed and interpreted this imaging study as follows: My impression: No acute pathology ECG Data Attestation: I personally reviewed and interpreted this ECG as follows: Prior ECG tracings: available for review Interpretation: Sinus tachycardia Ventricular rate of 104 Normal axis Right bundle branch block Normal QRS Unchanged from EKG dated 01/14/2019 [facility] Narrative Medical decision making narrative: After further questioning patient's symptoms seem less cardiac and more urinary frequency and generalized malaise. She did have a nitrite positive urine. Review of prior microbiology results show pansensitive E coli. She had 2 unremarkable troponins here in the emergency department with symptoms that have been going on for at least the past day if not longer. She was given Macrobid here in the emergency department and prescription for this medication. EKG is unchanged. Patient was given return precautions and follow-up instructions. She expressed understanding and agreement with plan. Discharge Plan Departure Patient Disposition: Home Clinical Impression: Acute UTI Instructions: DI for Urinary Tract Infection (UTI) Activity Restrictions/Additional Instructions: Take the antibiotics as directed. Tomorrow contact your primary care doctor for a follow-up. Return to the emergency department for any new or worsening symptoms Prescriptions: New nitrofurantoin monohyd/m-cryst [Macrobid] 100 mg capsule 100 mg PO BID 5 Days Qty: 10 RF: 0 No Action tiotropium bromide [Spiriva with HandiHaler] 18 MCG capsule, w/inhalation device 1 puff INH DAILY Qty: 0 RF: 0 aspirin 81 MG tablet,delayed release (DR/EC) 81 mg PO QDAY Qty: 0 RF: 0 lisinopril 40 mg Tablet 40 mg PO DAILY RF: 0 atorvastatin [Lipitor] 20 mg Tablet 40 mg PO BEDTIME Qty: 180 RF: 0 prednisone 10 mg tablet 1 dose PO DIRECTED RF: 0 levothyroxine 75 mcg tablet 75 mcg PO DAILY RF: 0 albuterol sulfate [Ventolin HFA] 90 mcg/actuation HFA aerosol inhaler 2 puff Inhalation Q4H PRN (Reason: Shortness Of Breath) RF: 0 triamterene-hydrochlorothiazid 37.5-25 mg tablet 1 tab PO DAILY RF: 0 fluticasone propion-salmeterol [Advair Diskus] 250-50 mcg/dose Blister With Device 1 inh INHALATION BID RF: 0 ipratropium bromide [Atrovent HFA] 17 mcg/actuation Hfa Aerosol Inhaler 2 puff Inhalation QID RF: 0 omega 6-rmh-loj-fish oil [Fish Oil] 1,000 mg (120 mg-180 mg) Capsule 1,000 mg PO DAILY RF: 0 nitroglycerin [Nitrostat] 0.4 mg Tablet, Sublingual 0.4 mg SUBLINGUAL Q5-15M PRN (Reason: Chest Pain) RF: 0 fluticasone propionate [Flonase Allergy Relief] 50 mcg/actuation [place],Suspension 1 spray Intranasal BID PRN (Reason: Allergy Symptoms) RF: 0 vitamin E 400 unit Capsule 400 unit PO DAILY RF: 0 multivitamin Tablet,Chewable 1 tab PO DAILY RF: 0 ipratropium-albuterol 0.5 mg-3 mg(2.5 mg base)/3 mL solution for nebulization 3 ml INHALATION Q6-8H PRN (Reason: shortness of breath or wheezing) Qty: 90 RF: 0 prednisone 20 mg tablet 20 mg PO DAILY Qty: 5 RF: 0 furosemide [Lasix] 20 mg tablet 20 mg PO DAILY Qty: 5 RF: 0 furosemide [Lasix] 20 mg tablet 20 mg PO BID Qty: 6 RF: 0 Referrals: Allie Fleming MD [Primary Care Provider] -
[2019-01-27 21:58] LABS: Add Manual Diff / Slide Review NO; Basophils Absolute Auto 100 /uL (0-100); Basophils Percent Auto 1.4 % (0-2); Eosinophils Absolute Auto 100 /uL (0-450); Eosinophils Percent Auto 1.5 % (2-4); Hematocrit 41.7 % (36-46); Lymphocytes Absolute Auto 900 /uL (1100-4500); Lymphocytes Percent Auto 9.2 % (25-40); Mean Corpuscular HGB Conc 33.6 % (30-36); Mean Corpuscular Hemoglobin 27.9 PG (26-34); Mean Corpuscular Volume 83.1 fL (80-100); Monocytes Absolute Auto 600 /uL (0-900); Monocytes Percent Auto 6.8 % (3-14); Neutrophils Absolute Auto 7600 /uL (1500-7000); Neutrophils Percent Auto 81.1 % (50-75); Platelet Count 204 X10^3/uL (150-400); Red Blood Cell Count 5.02 X10^6/uL (4.0-5.2); Red Cell Distribution Width 15.7 % (11.6-14.8); White Blood Cell Count 9.4 X10^3/uL (4.5-11.0)
[2019-01-27 22:08] LABS: Alanine Aminotransferase 21 IU/L (9-52); Albumin 4.1 g/dL (3.5-5.0); Albumin Globulin Ratio 1.4 (1.0-2.8); Alkaline Phosphatase 71 U/L (38-126); Aspartate Aminotransferase 24 IU/L (14-36); Bilirubin Total 1.3 mg/dL (0.2-1.3); Blood Urea Nitrogen 24 mg/dL (7-17); Calcium 10.3 mg/dL (8.4-10.2); Carbon Dioxide 27 mmol/L (22-32); Chloride 99 mmol/L (98-107); Estimated Glomerular Filt Rate 53.1 mL/min (>60); Glucose 110 mg/dL (80-110); HEMOLYSIS < 15 (0-50); Lipase 108 U/L (23-300); Potassium 4.4 mmol/L (3.4-5.1); Sodium 133 mmol/L (137-145); Total Protein 7.1 g/dL (6.3-8.2)
[2019-01-27 22:18] VITALS: BP 139/51; PULSE 102; RESP 27; O2SAT 93
[2019-01-27 22:19] LABS: Troponin I 0.025 ng/mL (0.01-0.034)
[2019-01-27 22:20] LABS: B Type Natriuretic Peptide 138 (<100)
[2019-01-27 22:27] LABS: Bacteria Urine Many (>30); Culture Indicated Urine Specimen Cultured; RBC Urine >100/HPF (0-5/HPF); WBC Urine >100/HPF (0-5/HPF)
[2019-01-27] MEDS: NITROFURANTOIN ER 100 MG CAPSULE PO (23:32)
[2019-01-28 00:24] LABS: Troponin I 0.026 ng/mL (0.01-0.034)
[2019-01-28 01:16] VITALS: BP 139/60; PULSE 105; TEMP 36.7; O2SAT 95
== END 2019-01-28 01:17 | disposition home or self-care (01) ==
PROVIDERS: Emergency Provider Emergency Medicine; PCP Internal Medicine
DX: N39.0 Urinary tract infection, site not specified (principal); R00.0 Tachycardia, unspecified; R07.89 Other chest pain
CPT/HCPCS: 36415; 36591; 71045; 80053; 81003; 81015; 83690; 83880; 84484; 85025; 87077; 87086; 87186; 93005; 99282; 99285

== ENCOUNTER → 2019-06-09 16:34 | Outpatient (CLI) | payer OTHER, SELFPAY ==
[2018-04-17 15:43] VITALS: BMI 20.8
--- NOTE | 2019-06-09 | DI.RAD.S_ITS ---
PROCEDURE: XR FOOT LT MIN 3V INDICATIONS: LEFT FOOT PAIN TECHNIQUE: 3 views of the foot were acquired. COMPARISON: None. FINDINGS: Bones: No fractures or dislocations. No suspicious bony lesions. Plantar calcaneal spur. Mild degenerative change the midfoot. Soft tissues: No tibiotalar joint effusion. Achilles tendon appears normal. IMPRESSION: No acute osseous abnormality. Dictated by: Marito Buchanan M.D. on 06/09/2019 at 17:34 Approved by: Marito Buchanan M.D. on 06/09/2019 at 17:35
--- NOTE | 2019-06-09 | DI.RAD.S_ITS ---
PROCEDURE: XR ANKLE LT MIN 3V INDICATIONS: LEFT ANKLE PAIN TECHNIQUE: 3 views of the ankle were acquired. COMPARISON: None. FINDINGS: Bones: No fractures or dislocations. Ankle mortise is normally aligned. Plantar calcaneal spur. Small osteophytes in the mid foot. No suspicious bony lesions. Soft tissues: No tibiotalar joint effusion. Achilles tendon appears normal. Small soft tissue calcifications. IMPRESSION: No acute osseous abnormality. Dictated by: Marito Buchanan M.D. on 06/09/2019 at 17:33 Approved by: Marito Buchanan M.D. on 06/09/2019 at 17:34
== END ==
PROVIDERS: PCP Internal Medicine; Visit Provider Internal Medicine
DX: M25.572 Pain in left ankle and joints of left foot (principal); M79.672 Pain in left foot; M77.32 Calcaneal spur, left foot
CPT/HCPCS: 73610; 73630

== ENCOUNTER → 2019-06-09 16:43 | Outpatient (CLI) | payer OTHER, SELFPAY ==
[2018-04-17 15:43] VITALS: BMI 20.8
== END ==
PROVIDERS: PCP Internal Medicine
DX: M79.672 Pain in left foot (principal); M25.572 Pain in left ankle and joints of left foot

== ENCOUNTER 2019-09-15 19:42 | Emergency (ER) | payer MEDICARE, SELFPAY ==
[2018-04-17 15:43] VITALS: BMI 20.8
[2019-09-15 20:13] VITALS: BP 122/63; PULSE 80; RESP 22; TEMP 36.8; O2SAT 95
[2019-09-15 21:31] LABS: Add Manual Diff / Slide Review NO; Basophils Absolute Auto 100 /uL (0-100); Basophils Percent Auto 1.1 % (0-2); Eosinophils Absolute Auto 300 /uL (0-450); Eosinophils Percent Auto 3.3 % (2-4); Hematocrit 47.2 % (36-46); Lymphocytes Absolute Auto 1600 /uL (1100-4500); Lymphocytes Percent Auto 17.1 % (25-40); Mean Corpuscular HGB Conc 33.9 % (30-36); Mean Corpuscular Hemoglobin 28.7 PG (26-34); Mean Corpuscular Volume 84.8 fL (80-100); Monocytes Absolute Auto 800 /uL (0-900); Monocytes Percent Auto 8.6 % (3-14); Neutrophils Absolute Auto 6600 /uL (1500-7000); Neutrophils Percent Auto 69.9 % (50-75); Platelet Count 243 X10^3/uL (150-400); Red Blood Cell Count 5.56 X10^6/uL (4.0-5.2); White Blood Cell Count 9.5 X10^3/uL (4.5-11.0)
[2019-09-15 21:41] LABS: Alanine Aminotransferase 19 IU/L (<35); Albumin 4.4 g/dL (3.5-5.0); Albumin Globulin Ratio 1.4 (1.0-2.8); Alkaline Phosphatase 62 U/L (38-126); Aspartate Aminotransferase 32 IU/L (14-36); BUN Creatinine Ratio 20.8 (6-22); Bilirubin Total 1.5 mg/dL (0.2-1.3); Blood Urea Nitrogen 25 mg/dL (7-17); Calcium 10.6 mg/dL (8.4-10.2); Carbon Dioxide 32 mmol/L (22-32); Chloride 94 mmol/L (98-107); Globulin 3.2 g/dL (1.7-4.1); Glucose 124 mg/dL (80-110); HEMOLYSIS < 15 (0-50); Potassium 3.7 mmol/L (3.4-5.1); Sodium 135 mmol/L (137-145); Total Protein 7.6 g/dL (6.3-8.2)
[2019-09-15 21:56] VITALS: BP 126/88; PULSE 79; RESP 20; O2SAT 95
[2019-09-15] MEDS: SODIUM CHLORIDE 0.9% 500 ML 1000 ML IV (23:37)
--- NOTE | 2019-09-15 23:44 | ED.EXTPRO ---
HPI - Extremity Problem General Chief complaint: Extremity Problem,Nontraumatic Stated complaint: not feeling good, leg cramps Time Seen by Provider: 09/15/19 23:44 Source: patient Mode of arrival: Wheelchair Limitations: no limitations History of Present Illness HPI Narrative: 83-year-old woman presents with a chief complaint of not feeling well for the last couple of days and increasing leg cramps. She states over the last 2 weeks she has had increasing wheezing. Was seen by her primary care physician, Dr. Fleming. She felt that perhaps there is a component of congestive heart failure and Lasix was started yesterday. After taking the 1st dose of Lasix patient is noticed increasing leg cramps and no relief to any of the pulmonary symptoms. She complains of chest heaviness/tightness and mild dyspnea, denies any actual pain or orthopnea. She has had no fever, no significant nausea vomiting or diarrhea. Mild cough nonproductive only. She notes that due to insurance issues she had to stop her Advair approximately 7 weeks ago. She has continued to use her nebulizer 4 times a day she states that it is two meds in 1 so I am assuming that it is DuoNeb. She is not currently on steroids. It does sound like she was given a new steroid inhaler to replace the Advair but she just used the 1st puff this morning. Related Data Home Medications Medication Instructions Recorded Confirmed tiotropium bromide [Spiriva with 1 puff INH DAILY #0 04/28/17 08/22/18 HandiHaler] aspirin 81 mg PO QDAY #0 07/11/17 08/22/18 lisinopril 40 mg PO DAILY 04/19/18 08/22/18 albuterol sulfate [Ventolin HFA] 2 puff INHALATION Q4H PRN 07/07/18 08/22/18 fluticasone propion-salmeterol 1 inh INHALATION BID 07/07/18 08/22/18 [Advair Diskus] fluticasone propionate [Flonase 1 spray INTRANASAL BID PRN 07/07/18 08/22/18 Allergy Relief] ipratropium bromide [Atrovent HFA] 2 puff INHALATION QID 07/07/18 08/22/18 levothyroxine 75 mcg PO DAILY 07/07/18 08/22/18 multivitamin 1 tab PO DAILY 07/07/18 08/22/18 nitroglycerin [Nitrostat] 0.4 mg SUBLINGUAL Q5-15M PRN 07/07/18 08/22/18 omega 9-[id number]-fish oil [Fish Oil] 1,000 mg PO DAILY 07/07/18 08/22/18 prednisone 1 dose PO DIRECTED 07/07/18 08/22/18 triamterene-hydrochlorothiazid 1 tab PO DAILY 07/07/18 08/22/18 vitamin E 400 unit PO DAILY 07/07/18 08/22/18 Previous Rx's Medication Instructions Recorded atorvastatin [Lipitor] 40 mg PO BEDTIME #180 tab 04/20/18 ipratropium-albuterol 3 ml INHALATION Q6-8H PRN #90 ml 11/04/18 prednisone 20 mg PO DAILY #5 tab 11/04/18 furosemide [Lasix] 20 mg PO BID #6 tab 01/16/19 furosemide [Lasix] 20 mg PO DAILY #5 tab 01/16/19 prednisone 20 mg PO DAILY #5 tab 09/16/19 Allergies Allergy/AdvReac Type Severity Reaction Status Date / Time acarbose Allergy Intermediate Abdominal Verified 01/27/19 21:35 Pain amlodipine Allergy Intermediate Verified 01/27/19 21:35 chlorthalidone Allergy Intermediate Redness of Verified 01/27/19 21:35 Skin doxazosin [From Cardura] Allergy Intermediate Rash Verified 01/27/19 21:35 doxycycline Allergy Intermediate Rash Verified 01/27/19 21:35 gemfibrozil Allergy Intermediate Rash Verified 01/27/19 21:35 levofloxacin Allergy Intermediate Rash Verified 01/27/19 21:35 losartan Allergy Intermediate Rash Verified 01/27/19 21:35 metoprolol Allergy Intermediate Verified 01/27/19 21:35 montelukast [From Singulair] Allergy Intermediate Difficulty Verified 01/27/19 21:35 Breathing nifedipine Allergy Intermediate Chills Verified 01/27/19 21:35 Sulfa (Sulfonamide Allergy Intermediate rash Verified 01/27/19 21:35 Antibiotics) sulfamethoxazole Allergy Intermediate Rash Verified 01/27/19 21:35 [From Bactrim] trimethoprim [From Bactrim] Allergy Intermediate Rash Verified 01/27/19 21:35 budesonide [From Symbicort] Allergy Mild Anxiety Verified 01/27/19 21:35 carvedilol Allergy Mild Rash Verified 01/27/19 21:35 choline fenofibrate Allergy Mild Gastrointestinal Verified 01/27/19 21:35 [From Trilipix] Upset formoterol [From Symbicort] Allergy Mild Anxiety Verified 01/27/19 21:35 Review of Systems Review of Systems Narrative: All systems reviewed and are unremarkable except as noted in HPI and below Patient History Medical History Aneurysm of infrarenal abdominal aorta (Chronic) Bilateral carpal tunnel syndrome (Resolved) CAD (coronary artery disease) (Chronic) COPD (chronic obstructive pulmonary disease) with emphysema (Chronic) Elevated TSH (Chronic) HTN (hypertension) (Chronic) Hyperlipidemia (Chronic) Unstable angina (Chronic) Valvular heart disease (Chronic) Surgical History H/O hysterectomy with oophorectomy (Resolved) H/O three vessel coronary artery bypass (Resolved) Hx of heart artery stent (Resolved) Status post cholecystectomy (Resolved) Social History household members: children Smoking Status: Former smoker alcohol intake: never Smoking Status: Former smoker alcohol intake frequency: 0-2 drinks per day Substance Use Type: does not use Exam Narrative Exam Narrative: General: Frail but, in no acute distress. Able to give a complete and coherent history. Able to clearly speak in full sentences HEENT: Moist mucous membranes, normal sclera with reactive pupils, Neck: No JVD, supple Respiratory: Lungs mild diffuse wheeze bilaterally with no rales no rhonchi. Full and symmetrical air movement Cardiac: Regular rate and rhythm no murmurs no bruits Abdomen: Soft nontender good bowel tones, no flank pain Skin: Warm and dry, no rashes Neurologic: Grossly neurologically intact with no obvious asymmetries or abnormalities Extremities: No trauma, well perfused Psych: Cooperative, appropriate insight and affect Initial Vital Signs Initial Vital Signs: Vital Signs Temperature 98.2 F 09/15/19 20:13 Pulse Rate 80 09/15/19 20:13 Respiratory Rate 22 09/15/19 20:13 Blood Pressure 122/63 09/15/19 20:13 Pulse Oximetry 95 09/15/19 20:13 Course Orders Ordered: ED Orders 09/15/19 21:21 CMP [Comprehensive Metabolic Panel] Stat Complete Blood Count AUTO DIFF Stat 09/15/19 23:51 XR chest 1V Stat Discontinued Medications Albuterol/Ipratropium (Duoneb) 3 ml INH NOW ONE Stop: 09/15/19 23:52 Last Admin: 09/16/19 00:00 Dose: 3 ml Documented by: PALOMA Sodium Chloride (Normal Saline 0.9%) 500 mls @ 1,000 mls/hr IV BOLUS ONE Stop: 09/16/19 00:02 Last Infusion: 09/16/19 00:25 Dose: 0 mls/hr Documented by: Admin: 09/15/19 23:37 Dose: 1,000 mls/hr Documented by: MARC Vital Signs Vital signs: Vital Signs - 8 hr 09/15/19 20:13 09/15/19 21:56 09/16/19 00:00 Temperature 98.2 F Pulse Rate 80 79 99 H Respiratory Rate 22 20 20 Blood Pressure 122/63 Blood Pressure [Right Arm] 126/88 Pulse Oximetry 95 95 96 09/16/19 01:13 Temperature Pulse Rate 102 H Respiratory Rate 16 Blood Pressure Blood Pressure [Right Arm] 132/63 Pulse Oximetry 96 MDM - Extremity (Nontraumatic) Lab Data Attestation: I reviewed the patient's lab results. Result diagrams: 09/15/19 21:21 09/15/19 21:21 Labs: Lab Results 09/15/19 09/15/19 Range/Units 21:21 21:21 WBC 9.5 (4.5-11.0) X10^3/uL RBC 5.56 H (4.0-5.2) X10^6/uL Hgb 16.0 (12.0-16.0) g/dL Hct 47.2 H (36-46) % MCV 84.8 (80-100) fL MCH 28.7 (26-34) PG MCHC 33.9 (30-36) % RDW 15.0 H (11.6-14.8) % Plt Count 243 (150-400) X10^3/uL Neut % (Auto) 69.9 (50-75) % Lymph % (Auto) 17.1 L (25-40) % [place] % (Auto) 8.6 (3-14) % Eos % (Auto) 3.3 (2-4) % Baso % (Auto) 1.1 (0-2) % Neut # (Auto) 6600 (8289-9430) /uL Lymph # (Auto) 1600 (6569-8311) /uL [place] # (Auto) 800 (0-900) /uL Eos # (Auto) 300 (0-450) /uL Baso # (Auto) 100 (0-100) /uL Sodium 135 L (137-145) mmol/L Potassium 3.7 (3.4-5.1) mmol/L Chloride 94 L (98-107) mmol/L Carbon Dioxide 32 (22-32) mmol/L BUN 25 H (7-17) mg/dL Creatinine 1.20 H (0.52-1.04) mg/dL Estimated GFR 43.0 L (>60) mL/min BUN/Creatinine Ratio 20.8 (6-22) Glucose 124 H (80-110) mg/dL Calcium 10.6 H (8.4-10.2) mg/dL Total Bilirubin 1.5 H (0.2-1.3) mg/dL AST 32 (14-36) IU/L ALT 19 (<35) IU/L Alkaline Phosphatase 62 (38-126) U/L Total Protein 7.6 (6.3-8.2) g/dL Albumin 4.4 (3.5-5.0) g/dL Globulin 3.2 (1.7-4.1) g/dL Albumin/Globulin Ratio 1.4 (1.0-2.8) Imaging Data Chest x-ray: Attestation: I personally reviewed and interpreted this imaging study as follows: My Impression: More chronic interstitial picture. No infiltrates no consolidated findings. Cardiac silhouette is within normal limits and actually smaller than comparison chest x-ray from January of 2019. No effusions no significant congestive heart failure more consistent with COPD exacerbation Discharge Plan Departure Patient Disposition: Home Clinical Impression: COPD exacerbation Discharge Date/Time: 09/16/19 01:36 Instructions: DI for Chronic Obstructive Pulmonary Disease Activity Restrictions/Additional Instructions: Thank you for coming in today It sounds like you are quite sensitive to low doses of Lasix. Lower extremity cramping can be a side effect of this. Based on your symptoms as well as her clinical exam I'm going to suggest that you stop the Lasix completely. I am going to place you on 20 mg of prednisone for 5 days to help with your breathing. Please continue the nebulizers you're doing at home as well as the newly started inhaled steroid that Dr. Fleming gave you Please give her office a call tomorrow to schedule a follow-up appointment and make sure that your lungs are feeling better and that you're doing well without the Lasix If you develop fevers increasing shortness of breath, more chest pain or new or concerning findings please feel free to return to the emergency room for additional evaluation Prescriptions: New prednisone 20 mg tablet 20 mg PO DAILY Qty: 5 RF: 0 No Action tiotropium bromide [Spiriva with HandiHaler] 18 MCG capsule, w/inhalation device 1 puff INH DAILY Qty: 0 RF: 0 aspirin 81 MG tablet,delayed release (DR/EC) 81 mg PO QDAY Qty: 0 RF: 0 lisinopril 40 mg Tablet 40 mg PO DAILY RF: 0 atorvastatin [Lipitor] 20 mg Tablet 40 mg PO BEDTIME Qty: 180 RF: 0 prednisone 10 mg tablet 1 dose PO DIRECTED RF: 0 levothyroxine 75 mcg tablet 75 mcg PO DAILY RF: 0 albuterol sulfate [Ventolin HFA] 90 mcg/actuation HFA aerosol inhaler 2 puff Inhalation Q4H PRN (Reason: Shortness Of Breath) RF: 0 triamterene-hydrochlorothiazid 37.5-25 mg tablet 1 tab PO DAILY RF: 0 fluticasone propion-salmeterol [Advair Diskus] 250-50 mcg/dose Blister With Device 1 inh INHALATION BID RF: 0 ipratropium bromide [Atrovent HFA] 17 mcg/actuation Hfa Aerosol Inhaler 2 puff Inhalation QID RF: 0 omega 0-vsd-uzg-fish oil [Fish Oil] 1,000 mg (120 mg-180 mg) Capsule 1,000 mg PO DAILY RF: 0 nitroglycerin [Nitrostat] 0.4 mg Tablet, Sublingual 0.4 mg SUBLINGUAL Q5-15M PRN (Reason: Chest Pain) RF: 0 fluticasone propionate [Flonase Allergy Relief] 50 mcg/actuation [place],Suspension 1 spray Intranasal BID PRN (Reason: Allergy Symptoms) RF: 0 vitamin E 400 unit Capsule 400 unit PO DAILY RF: 0 multivitamin Tablet,Chewable 1 tab PO DAILY RF: 0 ipratropium-albuterol 0.5 mg-3 mg(2.5 mg base)/3 mL solution for nebulization 3 ml INHALATION Q6-8H PRN (Reason: shortness of breath or wheezing) Qty: 90 RF: 0 prednisone 20 mg tablet 20 mg PO DAILY Qty: 5 RF: 0 furosemide [Lasix] 20 mg tablet 20 mg PO DAILY Qty: 5 RF: 0 furosemide [Lasix] 20 mg tablet 20 mg PO BID Qty: 6 RF: 0 Referrals: Allie Fleming MD [Primary Care Provider] -
--- NOTE | 2019-09-15 23:51 | DI.RAD.S_ITS ---
PROCEDURE: XR CHEST 1V INDICATIONS: wheeze TECHNIQUE: One view of the chest was acquired. COMPARISON: [facility], CR, XR CHEST 1V, 01/27/2019, 21:56. FINDINGS: Surgical changes and devices: Status post CABG procedure.. Lungs and pleura: Interstitial prominence stable compared to 6 W. on slice 2-19. No pleural effusions or pneumothorax. Mediastinum: Mediastinal contours appear normal. Heart enlarged. Bones and chest wall: No suspicious bony lesions. Overlying soft tissues appear unremarkable. IMPRESSION: Stable interstitial prominence which could represent chronic lung disease versus recurrent atypical pneumonia or pulmonary edema. Dictated by: Taylor Mills MD, PhD on 09/16/2019 at 8:19 Approved by: Taylor Mills MD, PhD on 09/16/2019 at 8:20
[2019-09-16] VITALS: PULSE 99; RESP 20; O2SAT 96
[2019-09-16] MEDS: ALBUTEROL/IPRATROPIUM 3 ML AMPUL INH
--- NOTE | 2019-09-16 00:25 | PC.NURSE ---
pt reports improved sx after ns bolus, ambulatory without complaint
[2019-09-16 01:13] VITALS: BP 132/63; PULSE 102; RESP 16; O2SAT 96
== END 2019-09-16 01:36 | disposition home or self-care (01) ==
PROVIDERS: Nurse Practitioner Family; Emergency Provider Emergency Medicine; Family Provider Internal Medicine; PCP Internal Medicine
DX: J44.1 Chronic obstructive pulmonary disease with (acute) exacerbation (principal); R25.2 Cramp and spasm
CPT/HCPCS: 36415; 71045; 80053; 85025; 94640; 96360; 99284

== ENCOUNTER → 2019-11-02 18:24 | Outpatient (ROUT) | payer MEDICARE, SELFPAY ==
[2018-04-17 15:43] VITALS: BMI 20.8
[2019-11-02 18:42] LABS: BUN Creatinine Ratio 24.7 (6-22); Blood Urea Nitrogen 23 mg/dL (7-17); Calcium 10.4 mg/dL (8.4-10.2); Carbon Dioxide 29 mmol/L (22-32); Chloride 101 mmol/L (98-107); Estimated Glomerular Filt Rate 57.6 mL/min (>60); Glucose 87 mg/dL (80-110); HEMOLYSIS < 15 (0-50); Potassium 3.7 mmol/L (3.4-5.1); Sodium 138 mmol/L (137-145)
== END ==
PROVIDERS: Family Provider Internal Medicine; PCP Internal Medicine; Visit Provider Internal Medicine
DX: I50.9 Heart failure, unspecified (principal)
CPT/HCPCS: 80048

== ENCOUNTER 2020-05-28 14:08 | Emergency (ER) | payer MEDICARE, SELFPAY ==
[2018-04-17 15:43] VITALS: BMI 20.8
[2020-05-28] VITALS (8 sets, daily range): BP systolic 183–218; BP diastolic 74–91; PULSE 68–87; RESP 25–34; TEMP 36.4; O2SAT 95–97
--- NOTE | 2020-05-28 14:18 | DI.RAD.S_ITS ---
PROCEDURE: XR CHEST 2V INDICATIONS: shortness of breath TECHNIQUE: 2 views of the chest were acquired. COMPARISON: [facility], , XR CHEST 1V, 09/15/2019, 23:56. FINDINGS: Surgical changes and devices: Postsurgical changes of CABG. Cholecystectomy clips in the right upper abdomen. Lungs and pleura: Lungs are clear. Increased interstitial prominence again noted, likely related to known centrilobular emphysema. No pleural effusions or pneumothorax. Mediastinum: Mediastinal contours are normal. Heart size is moderate enlarged. Bones and chest wall: No suspicious bony abnormalities. Soft tissues appear unremarkable. IMPRESSION: Cardiomegaly. Diffuse prominence of the interstitium, most likely related to patient's known centrilobular emphysema. Dictated by: Garrick Foy M.D. on 05/28/2020 at 14:00 Approved by: Garrick Foy M.D. on 05/28/2020 at 14:04
[2020-05-28] MEDS: ALBUTEROL HFA 200 PUFF/18 GM INH (COVID POS/VENT PTS) INH (14:34)
[2020-05-28 14:39] LABS: Add Manual Diff / Slide Review NO; Basophils Absolute Auto 100 /uL (0-100); Basophils Percent Auto 1.1 % (0-2); Eosinophils Absolute Auto 200 /uL (0-450); Eosinophils Percent Auto 3.3 % (2-4); Hematocrit 40.9 % (36-46); Hemoglobin 13.4 g/dL (12.0-16.0); Lymphocytes Absolute Auto 900 /uL (1100-4500); Lymphocytes Percent Auto 13.8 % (25-40); Mean Corpuscular HGB Conc 32.9 % (30-36); Mean Corpuscular Hemoglobin 28.7 PG (26-34); Mean Corpuscular Volume 87.4 fL (80-100); Monocytes Absolute Auto 500 /uL (0-900); Monocytes Percent Auto 7.6 % (3-14); Neutrophils Absolute Auto 4600 /uL (1500-7000); Neutrophils Percent Auto 74.2 % (50-75); Platelet Count 227 X10^3/uL (150-400); Red Blood Cell Count 4.68 X10^6/uL (4.0-5.2); Red Cell Distribution Width 14.1 % (11.6-14.8); White Blood Cell Count 6.2 X10^3/uL (4.5-11.0)
[2020-05-28 14:51] LABS: Lactate (Lactic Acid) 1.2 mmol/L (0.7-2.1)
--- NOTE | 2020-05-28 14:51 | ED_ITS ---
HPI - SOB/Dyspnea General Chief Complaint: Shortness of Breath/Dyspnea Stated Complaint: Coughing, Not Feeling Well, Tired Time Seen by Provider: 05/28/20 14:21 Source: patient Mode of arrival: Ambulatory Limitations: no limitations History of Present Illness HPI Narrative: Patient is a shu 84-year-old female with history of COPD presenting with cough and increasing shortness of breath. She was seen evaluated with the hospital a few weeks ago for the same she said they gave her medication she is unsure what it was seem to get better and now it is coming back. She has a productive cough and shortness of breath with exertion. She denies any fever sweats chills or rigors. She denies any chest pain or ort hopnea. She has no peripheral edema. 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 She admits that she is feeling depressed and missing her daughter lately and worried that her lung issue may be related. She states she has not taken her blood pressure medication today she also takes Lasix only as an add needed medication not daily MD Complaint: shortness of breath Severity: mild Consistency/Duration: progressively worsening Exacerbating factors: nothing Related Data Home oxygen amount: none Home Medications Medication Instructions Recorded Confirmed tiotropium bromide [Spiriva with 1 puff INH DAILY #0 04/28/17 08/22/18 HandiHaler] aspirin 81 mg PO QDAY #0 07/11/17 08/22/18 lisinopril 40 mg PO DAILY 04/19/18 08/22/18 albuterol sulfate [Ventolin HFA] 2 puff INHALATION Q4H PRN 07/07/18 08/22/18 fluticasone propion-salmeterol 1 inh INHALATION BID 07/07/18 08/22/18 [Advair Diskus] fluticasone propionate [Flonase 1 spray INTRANASAL BID PRN 07/07/18 08/22/18 Allergy Relief] ipratropium bromide [Atrovent HFA] 2 puff INHALATION QID 07/07/18 08/22/18 levothyroxine 75 mcg PO DAILY 07/07/18 08/22/18 multivitamin 1 tab PO DAILY 07/07/18 08/22/18 nitroglycerin [Nitrostat] 0.4 mg SUBLINGUAL Q5-15M PRN 07/07/18 08/22/18 omega 2-rez-ifi-fish oil [Fish Oil] 1,000 mg PO DAILY 07/07/18 08/22/18 prednisone 1 dose PO DIRECTED 07/07/18 08/22/18 triamterene-hydrochlorothiazid 1 tab PO DAILY 07/07/18 08/22/18 vitamin E 400 unit PO DAILY 07/07/18 08/22/18 Previous Rx's Medication Instructions Recorded atorvastatin [Lipitor] 40 mg PO BEDTIME #180 tab 04/20/18 ipratropium-albuterol 3 ml INHALATION Q6-8H PRN #90 ml 11/04/18 prednisone 20 mg PO DAILY #5 tab 11/04/18 furosemide [Lasix] 20 mg PO BID #6 tab 01/16/19 furosemide [Lasix] 20 mg PO DAILY #5 tab 01/16/19 prednisone 20 mg PO DAILY #5 tab 09/16/19 Allergies Allergy/AdvReac Type Severity Reaction Status Date / Time acarbose Allergy Intermediate Abdominal Verified 01/27/19 21:35 Pain amlodipine Allergy Intermediate Verified 01/27/19 21:35 chlorthalidone Allergy Intermediate Redness of Verified 01/27/19 21:35 Skin doxazosin [From Cardura] Allergy Intermediate Rash Verified 01/27/19 21:35 doxycycline Allergy Intermediate Rash Verified 01/27/19 21:35 gemfibrozil Allergy Intermediate Rash Verified 01/27/19 21:35 levofloxacin Allergy Intermediate Rash Verified 01/27/19 21:35 losartan Allergy Intermediate Rash Verified 01/27/19 21:35 metoprolol Allergy Intermediate Verified 01/27/19 21:35 montelukast [From Singulair] Allergy Intermediate Difficulty Verified 01/27/19 21:35 Breathing nifedipine Allergy Intermediate Chills Verified 01/27/19 21:35 Sulfa (Sulfonamide Allergy Intermediate rash Verified 01/27/19 21:35 Antibiotics) sulfamethoxazole Allergy Intermediate Rash Verified 01/27/19 21:35 [From Bactrim] trimethoprim [From Bactrim] Allergy Intermediate Rash Verified 01/27/19 21:35 budesonide [From Symbicort] Allergy Mild Anxiety Verified 01/27/19 21:35 carvedilol Allergy Mild Rash Verified 01/27/19 21:35 choline fenofibrate Allergy Mild Gastrointestinal Verified 01/27/19 21:35 [From Trilipix] Upset formoterol [From Symbicort] Allergy Mild Anxiety Verified 01/27/19 21:35 Review of Systems Review of Systems ROS Unobtainable: All systems reviewed & are unremarkable except as noted in HPI and below Constitutional Constitutional: Denies chills, Denies fever(s), Denies lethargy and Denies weak ness Eyes Eyes: Denies change in vision, Denies eye discharge, Denies irritation and Denies loss of vision ENT Ears, Nose, Mouth, and Throat: Denies change in voice, Denies neck pain and Denies sore throat Cardiovascular Cardiovascular: Denies chest pain, Denies irregular heart rhythm, Denies lightheadedness, Denies palpitations, Reports dyspnea on exertion and Denies orthopnea Respiratory Respiratory: Reports as per HPI and Reports dyspnea on exertion Gastrointestinal Gastrointestinal: Denies abdominal pain, Denies change in bowel habits, Denies diarrhea, Denies nausea and Denies vomiting Musculoskeletal Musculoskeletal: Denies neck pain Integumentary/Breasts Skin/Breast: Denies pruritus, Denies erythema, Denies rash and Denies wounds Neurologic Neurologic: Denies loss of vision and Denies weakness Endocrine Endocrine: Denies palpitations Patient History Medical History Aneurysm of infrarenal abdominal aorta (Chronic) Bilateral carpal tunnel syndrome (Resolved) CAD (coronary artery disease) (Chronic) COPD (chronic obstructive pulmonary disease) with emphysema (Chronic) Elevated TSH (Chronic) HTN (hypertension) (Chronic) Hyperlipidemia (Chronic) Unstable angina (Chronic) Valvular heart disease (Chronic) Surgical History H/O hysterectomy with oophorectomy (Resolved) H/O three vessel coronary artery bypass (Resolved) Hx of heart artery stent (Resolved) Status post cholecystectomy (Resolved) Social History household members: children Smoking Status: Former smoker alcohol intake: never Smoking Status: Former smoker alcohol intake frequency: 0-2 drinks per day Substance Use Type: does not use Exam Initial Vital Signs Initial Vital Signs: Vital Signs Temperature 97.5 F L 05/28/20 14:15 Pulse Rate 87 05/28/20 14:15 Respiratory Rate 28 H 05/28/20 14:15 Blood Pressure 218/91 H 05/28/20 14:15 Pulse Oximetry 97 05/28/20 14:15 GENERAL: Well-appearing 84-year-old female in no acute respiratory distress HEENT: Head atraumatic,EOMI, pupils reactive, face symmetric, moist mucous membrane CARDIOVASCULAR: Regular rate and rhythm without murmurs, rubs or gallops. RESPIRATORY: Breath sounds equal bilaterally, no wheezes rales or rhonchi. ABDOMEN: Soft, nontender. Normoactive bowel sounds all 4 quadrants. No guarding or rebound. EXTREMITIES: Normal range of motion, no clubbing or edema. Neurovascularly intact NEUROLOGICAL: Alert and oriented x4.Normal gait and speech. SKIN: Warm, dry, no laceration, no petechiae, no rashes or lesions. Course Orders Ordered: ED Orders 05/28/20 14:18 XR chest 2V Stat EKG-12 Lead Stat Measure peak expiratory flow ONCE RT Consult Eval and Treat Now 05/28/20 14:30 Complete Blood Count AUTO DIFF Stat Comprehensive Metabolic Panel Stat Lactate (Lactic Acid) Stat NT-proBNP (BNP-Adult 18+) Stat Troponin & CK Cardiac Panel Stat 05/28/20 15:40 COVID19 -ED/INPAT/OR/L&D Stat Discontinued Medications Albuterol (Ventolin Hfa (Vent/Covid R/O)) 2 puff INH NOW ONE Stop: 05/28/20 14:32 Last Admin: 05/28/20 14:34 Dose: 2 puff Documented by: CTRJOHNNY Furosemide (Lasix) 20 mg IV NOW ONE Stop: 05/28/20 15:50 Last Admin: 05/28/20 16:02 Dose: 20 mg Documented by: ADRIEL Vital Signs Vital signs: Vital Signs - 8 hr 05/28/20 14:15 05/28/20 14:27 05/28/20 14:30 Temperature 97.5 F L Pulse Rate 87 68 72 Respiratory Rate 28 H 26 H 26 H Blood Pressure 218/91 H Pulse Oximetry 97 97 97 05/28/20 14:38 05/28/20 15:00 05/28/20 15:30 Temperature Pulse Rate 71 70 Respiratory Rate 34 H 25 H Blood Pressure Pulse Oximetry 97 97 96 05/28/20 16:00 05/28/20 16:03 Temperature Pulse Rate 72 68 Respiratory Rate 25 H 25 H Blood Pressure 183/74 H Pulse Oximetry 95 97 MDM - SOB/Dyspnea Lab Data Attestation: I reviewed the patient's lab results. Result diagrams: 05/28/20 14:30 05/28/20 14:30 Labs: Lab Results 05/28/20 05/28/20 05/28/20 Range/Units 14:30 14:30 14:30 WBC 6.2 (4.5-11.0) X10^3/uL RBC 4.68 (4.0-5.2) X10^6/uL Hgb 13.4 (12.0-16.0) g/dL Hct 40.9 (36-46) % MCV 87.4 (80-100) fL MCH 28.7 (26-34) PG MCHC 32.9 (30-36) % RDW 14.1 (11.6-14.8) % Plt Count 227 (150-400) X10^3/uL Neut % (Auto) 74.2 (50-75) % Lymph % (Auto) 13.8 L (25-40) % Kaufman % (Auto) 7.6 (3-14) % Eos % (Auto) 3.3 (2-4) % Baso % (Auto) 1.1 (0-2) % Neut # (Auto) 4600 (7187-6919) /uL Lymph # (Auto) 900 L (1912-9598) /uL [place]aufman # (Auto) 500 (0-900) /uL Eos # (Auto) 200 (0-450) /uL Baso # (Auto) 100 (0-100) /uL Sodium 135 L (137-145) mmol/L Potassium 4.1 (3.4-5.1) mmol/L Chloride 107 (98-107) mmol/L Carbon Dioxide 27 (22-32) mmol/L BUN 21 H (7-17) mg/dL Creatinine 0.90 (0.52-1.04) mg/dL Estimated GFR 59.8 L (>60) mL/min BUN/Creatinine Ratio 23.3 H (6-22) Glucose 105 (80-110) mg/dL Lactate 1.2 (0.7-2.1) mmol/L Calcium 9.3 (8.4-10.2) mg/dL Total Bilirubin 1.1 (0.2-1.3) mg/dL AST 25 (14-36) IU/L ALT 17 (<35) IU/L Alkaline Phosphatase 56 (38-126) U/L Total Creatine Kinase (30-135) U/L CK-MB (CK-2) CK-MB (CK-2) Rel Index Troponin I (0.01-0.034) ng/mL NT-Pro-B Natriuret Pep (<450) pg/mL Total Protein 6.1 L (6.3-8.2) g/dL Albumin 3.5 (3.5-5.0) g/dL Globulin 2.6 (1.7-4.1) g/dL Albumin/Globulin Ratio 1.3 (1.0-2.8) COVID-19 PCR (Negative) 05/28/20 05/28/20 Range/Units 14:30 15:40 WBC (4.5-11.0) X10^3/uL RBC (4.0-5.2) X10^6/uL Hgb (12.0-16.0) g/dL Hct (36-46) % MCV (80-100) fL MCH (26-34) PG MCHC (30-36) % RDW (11.6-14.8) % Plt Count (150-400) X10^3/uL Neut % (Auto) (50-75) % Lymph % (Auto) (25-40) % Kaufman % (Auto) (3-14) % Eos % (Auto) (2-4) % Baso % (Auto) (0-2) % Neut # (Auto) (2966-8920) /uL Lymph # (Auto) (9843-0717) /uL Kaufman # (Auto) (0-900) /uL Eos # (Auto) (0-450) /uL Baso # (Auto) (0-100) /uL Sodium (137-145) mmol/L Potassium (3.4-5.1) mmol/L Chloride (98-107) mmol/L Carbon Dioxide (22-32) mmol/L BUN (7-17) mg/dL Creatinine (0.52-1.04) mg/dL Estimated GFR (>60) mL/min BUN/Creatinine Ratio (6-22) Glucose (80-110) mg/dL Lactate (0.7-2.1) mmol/L Calcium (8.4-10.2) mg/dL Total Bilirubin (0.2-1.3) mg/dL AST (14-36) IU/L ALT (<35) IU/L Alkaline Phosphatase (38-126) U/L Total Creatine Kinase 35 (30-135) U/L CK-MB (CK-2) TNP CK-MB (CK-2) Rel Index TNP Troponin I 0.027 (0.01-0.034) ng/mL NT-Pro-B Natriuret Pep 2570 H (<450) pg/mL Total Protein (6.3-8.2) g/dL Albumin (3.5-5.0) g/dL Globulin (1.7-4.1) g/dL Albumin/Globulin Ratio (1.0-2.8) COVID-19 PCR Negative (Negative) Imaging Data Chest x-ray: Radiologist's Impression: PROCEDURE: XR CHEST 2V INDICATIONS: shortness of breath TECHNIQUE: 2 views of the chest were acquired. COMPARISON: [facility], , XR CHEST 1V, 09/15/2019, 23:56. FINDINGS: Surgical changes and devices: Postsurgical changes of CABG. Cholecystectomy clips in the right upper abdomen. Lungs and pleura: Lungs are clear. Increased interstitial prominence again noted, likely related to known centrilobular emphysema. No pleural effusions or pneumothorax. Mediastinum: Mediastinal contours are normal. Heart size is moderate enlarged. Bones and chest wall: No suspicious bony abnormalities. Soft tissues appear unremarkable. IMPRESSION: Cardiomegaly. Diffuse prominence of the interstitium, most likely related to patient's known centrilobular emphysema. Dictated by: Garrick Foy M.D. on 05/28/2020 at 14:00 Approved by: Garrick Foy M.D. on 05/28/2020 at 14:04 ECG Data Attestation: I personally reviewed and interpreted this ECG as follows: Prior ECG tracings: available for review Interpretation: Normal sinus rhythm rate 70 p.r. interval 170 QRS 164 QTC of 451 artifact noted right bundle branch block noted similar to previous EKGs no ST changes. MDM Narrative Medical decision making narrative: The patient has an elevated BNP she does have a history of CHF and takes Lasix as needed. She does not take it every day. She did take her own blood pressure medication in the ED. At this time no indication for antibiotics. This seems to be more CHF with elevated BNP rather than COPD. She is ambulatory in the ED without any difficulty she appears to have no respiratory distress. Recommend that she take her Lasix daily for the next 3 days. She did take her home medications while in the ED which included Lasix and lisinopril Discharge Plan Departure Patient Disposition: Home Clinical Impression: Congestive heart failure Qualifiers: Heart failure type: unspecified Heart failure chronicity: acute on chronic Qualified Code(s): I50.9 - Heart failure, unspecified Discharge Date/Time: 05/28/20 16:41 Instructions: DI for Heart Failure Activity Restrictions/Additional Instructions: *You have been diagnosed with congestive heart failure *What to do: Please talk to your primary care provider about ordering an echocardiogram if you have not already have one. This will help assess your heart *Continue to take medications as directed Lasix that she furosemide 20 mg once daily the next 3 days *Follow up with your primary care provider in 2-3 days *Return to ER if you should have increasing shortness of breath, chest pain, confusion or weakness or any new, worsening or concerning symptoms Prescriptions: No Action tiotropium bromide [Spiriva with HandiHaler] 18 MCG capsule, w/inhalation device 1 puff INH DAILY Qty: 0 RF: 0 aspirin 81 MG tablet,delayed release (DR/EC) 81 mg PO QDAY Qty: 0 RF: 0 lisinopril 40 mg Tablet 40 mg PO DAILY RF: 0 atorvastatin [Lipitor] 20 mg Tablet 40 mg PO BEDTIME Qty: 180 RF: 0 prednisone 10 mg tablet 1 dose PO DIRECTED RF: 0 levothyroxine 75 mcg tablet 75 mcg PO DAILY RF: 0 albuterol sulfate [Ventolin HFA] 90 mcg/actuation HFA aerosol inhaler 2 puff Inhalation Q4H PRN (Reason: Shortness Of Breath) RF: 0 triamterene-hydrochlorothiazid 37.5-25 mg tablet 1 tab PO DAILY RF: 0 fluticasone propion-salmeterol [Advair Diskus] 250-50 mcg/dose Blister With Device 1 inh INHALATION BID RF: 0 ipratropium bromide [Atrovent HFA] 17 mcg/actuation Hfa Aerosol Inhaler 2 puff Inhalation QID RF: 0 omega [id number]-lpu-fish oil [Fish Oil] 1,000 mg (120 mg-180 mg) Capsule 1,000 mg PO DAILY RF: 0 nitroglycerin [Nitrostat] 0.4 mg Tablet, Sublingual 0.4 mg SUBLINGUAL Q5-15M PRN (Reason: Chest Pain) RF: 0 fluticasone propionate [Flonase Allergy Relief] 50 mcg/actuation [place],Suspension 1 spray Intranasal BID PRN (Reason: Allergy Symptoms) RF: 0 vitamin E 400 unit Capsule 400 unit PO DAILY RF: 0 multivitamin Tablet,Chewable 1 tab PO DAILY RF: 0 ipratropium-albuterol 0.5 mg-3 mg(2.5 mg base)/3 mL solution for nebulization 3 ml INHALATION Q6-8H PRN (Reason: shortness of breath or wheezing) Qty: 90 RF: 0 prednisone 20 mg tablet 20 mg PO DAILY Qty: 5 RF: 0 furosemide [Lasix] 20 mg tablet 20 mg PO DAILY Qty: 5 RF: 0 furosemide [Lasix] 20 mg tablet 20 mg PO BID Qty: 6 RF: 0 prednisone 20 mg tablet 20 mg PO DAILY Qty: 5 RF: 0 Referrals: Allie Fleming MD [Primary Care Provider] -
[2020-05-28 14:53] LABS: Alanine Aminotransferase 17 IU/L (<35); Albumin 3.5 g/dL (3.5-5.0); Albumin Globulin Ratio 1.3 (1.0-2.8); Alkaline Phosphatase 56 U/L (38-126); Aspartate Aminotransferase 25 IU/L (14-36); BUN Creatinine Ratio 23.3 (6-22); Bilirubin Total 1.1 mg/dL (0.2-1.3); Blood Urea Nitrogen 21 mg/dL (7-17); Calcium 9.3 mg/dL (8.4-10.2); Carbon Dioxide 27 mmol/L (22-32); Chloride 107 mmol/L (98-107); Estimated Glomerular Filt Rate 59.8 mL/min (>60); Globulin 2.6 g/dL (1.7-4.1); Glucose 105 mg/dL (80-110); HEMOLYSIS < 15 (0-50); Potassium 4.1 mmol/L (3.4-5.1); Sodium 135 mmol/L (137-145); Total Protein 6.1 g/dL (6.3-8.2)
[2020-05-28 15:13] LABS: Creatine Kinase 35 U/L (30-135)
[2020-05-28 15:27] LABS: NT-proBNP (BNP-Adult 18+) 2570 pg/mL (<450); Troponin I 0.027 ng/mL (0.01-0.034)
[2020-05-28] MEDS: FUROSEMIDE 20 MG/2 ML VIAL IV (16:02)
[2020-05-28 16:05] LABS: COVID19 -Nasal RAPID Negative (Negative)
== END 2020-05-28 16:41 | disposition home or self-care (01) ==
PROVIDERS: Emergency Provider Emergency Medicine; Family Provider Internal Medicine; PCP Internal Medicine
DX: I11.0 Hypertensive heart disease with heart failure (principal); I50.9 Heart failure, unspecified; R05 Cough; R06.02 Shortness of breath; J44.9 Chronic obstructive pulmonary disease, unspecified
CPT/HCPCS: 36415; 71046; 80053; 82550; 83605; 83880; 84484; 85025; 87635; 93005; 94150; 94640; 96374; 99284; J1940

== ENCOUNTER → 2020-06-07 14:36 | Outpatient (CLI) | payer MEDICARE, SELFPAY ==
[2018-04-17 15:43] VITALS: BMI 20.8
--- NOTE | 2020-06-07 | DI.ECHO.S_ITS ---
[facility]---------+ [facility] +---------+ : : [address] [address] : : : : [id number] : : : : Phone: [phone] Echocardiogram Report + + :Name: ELYSIA LACKEY Study Date: 06/07/2020 Height: 59 in : :[facility] Weight: 126 lb : : Gender: Female BSA: 1.5 m2 : :: 1935 Age: 84 yrs BP: 158/60 mmHg: :Reason For Study: HEART FAILURE : : Performed By: José Haider : :Referring: BETHANIE CORONA : + + Interpretation Summary The ejection fraction is estimated to be 35-40%. There is moderate global hypokinesis of the left ventricle. Mid to distal inferior wall is akinetic Increased echogenicity of the myocardium is suggestive of an infiltrative process Left ventricular function has slightly worsened compared to the previous exam. The left atrium is severely dilated. There is mild mitral regurgitation. There is moderate aortic stenosis. There is moderate to severe aortic regurgitation. Consider ELROY if clinically indicated Procedure: A two-dimensional transthoracic echocardiogram with color flow and Doppler was performed. The study quality was technically good. Comparison is made with the echocardiogram of 07/08/18. The patient was in normal sinus rhythm during the exam. The patient had frequent PVCs during the exam. Left Ventricle: The left ventricle is normal in size. There is normal left ventricular wall thickness. Increased echogenicity of the myocardium is suggestive of an infiltrative process. The ejection fraction is estimated to be 35-40%. Left ventricular function has slightly worsened compared to the previous exam. There is moderate global hypokinesis of the left ventricle. Mid to distal inferior wall is akinetic. Right Ventricle: The right ventricle is normal size. Right ventricular systolic function is mildly reduced. Atria: The left atrium is severely dilated. The right atrium is mildly dilated. Mitral Valve: The mitral valve leaflets are slightly calcified. There is mild mitral regurgitation. Aortic Valve: The aortic valve is trileaflet. The aortic valve is moderately calcified. The peak aortic velocity is 2.78 m/sec. The aortic valve mean gradient is 18.5 mmHg. The calculated aortic valve area is 1.7 cm2. The aortic valve area is 1.5 centimeters squared by planimetry. There is moderate aortic stenosis. There is moderate to severe aortic regurgitation. Tricuspid Valve: The tricuspid valve is normal in structure and function. There is trace tricuspid regurgitation. Pulmonary artery pressures cannot be estimated because of the lack of a measurable TR jet velocity. Pulmonic Valve: The pulmonic valve is normal in structure and function. There is trace pulmonic regurgitation. Great Vessels: The aortic root is normal size. The ascending aorta is mildly enlarged. The pulmonary artery is normal size. The IVC is of normal diameter and collapses less than 50% with a sniff. This suggests a right atrial pressure of 8 mm Hg. Pericardium/ Pleura There is no pericardial effusion. There is no pleural effusion. MMode/2D Measurements & Calculations LVIDd: 5.1 cm LVOT diam: 2.3 cm LVIDs: 3.6 cm Ao root diam: 3.5 cm FS: 30.2 % asc Aorta Diam: 3.6 cm EPSS: 2.1 cm Ao Arch Diam (Prox Trans): 2.6 cm IVSd: 0.90 cm LVPWd: 1.0 cm LV gonzales. diameter/BSA (cm/m^2): 3.4 LV sys. diameter/BSA (cm/m^2): 2.3 LA dimension: 3.8 cm RA long axis: 5.1 cm LA A2 area: 23.7 cm2 RA area: 17.1 cm2 LA A4 area: 22.8 cm2 RA vol: 48.8 ml LA length (vol): 5.8 cm RA : 32.2 ml/m2 LA vol: 79.2 ml IVC diam: 1.3 cm LA vol index: 52.3 ml/m2 RVD1 (basal): 3.9 cm RVD2 (mid): 3.2 cm KENNY (plan): 1.5 cm2 TAPSE: 1.4 cm Doppler Measurements & Calculations Ao V2 max: 278.2 cm/sec LVOT Max Gurpreet: 116.0 cm/sec Ao V2 mean: 206.9 cm/sec LV V1 max P.4 mmHg Ao max P.0 mmHg LV V1 VTI: 23.8 cm Ao mean P.5 mmHg KENNY(I,D): 1.9 cm2 Ao V2 VTI: 51.2 cm KENNY(V,D): 1.7 cm2 sev ratio: 0.46 KENNY indexed to BSA (cm^2/m^2): 1.3 AI P1/2t: 353.5 msec AI dec slope: 299.8 cm/sec2 MV E max gurpreet: 33.9 cm/sec PA V2 max: 71.6 cm/sec MV A max gurpreet: 99.2 cm/sec PA V2 mean: 53.8 cm/sec MV E/A: 0.34 PA mean P.2 mmHg Med Peak E' Gurpreet: 3.8 cm/sec PA pr(Accel): 39.6 mmHg E/E' med: 8.9 Lat Peak E' Gurpreet: 3.2 cm/sec E/E' lat: 10.7 E/e' average: 9.8 MV dec time: 0.09 sec SV(LVOT): 97.4 ml Reading Physician:04:20 PM
== END ==
PROVIDERS: Family Provider Internal Medicine; PCP Internal Medicine; Referring Provider Internal Medicine; Visit Provider Internal Medicine
DX: I08.0 Rheumatic disorders of both mitral and aortic valves (principal); I77.89 Other specified disorders of arteries and arterioles; I50.9 Heart failure, unspecified
CPT/HCPCS: 93306

== ENCOUNTER → 2020-06-28 08:51 | Outpatient (CLI) | payer MEDICARE, SELFPAY ==
[2018-04-17 15:43] VITALS: BMI 20.8
[2020-06-28 11:01] LABS: BUN Creatinine Ratio 15.3 (6-22); Blood Urea Nitrogen 15 mg/dL (7-17); Calcium 10.2 mg/dL (8.4-10.2); Carbon Dioxide 31 mmol/L (22-32); Chloride 102 mmol/L (98-107); Estimated Glomerular Filt Rate 54.2 mL/min (>60); Glucose 93 mg/dL (80-110); HEMOLYSIS < 15 (0-50); Potassium 3.7 mmol/L (3.4-5.1); Sodium 138 mmol/L (137-145)
[2020-06-28 11:11] LABS: NT-proBNP (BNP-Adult 18+) 3540 pg/mL (<450)
== END ==
PROVIDERS: Family Provider Internal Medicine; PCP Internal Medicine; Referring Provider Registered Nurse; Visit Provider Registered Nurse
DX: I25.10 Atherosclerotic heart disease of native coronary artery without angina pectoris (principal); I10 Essential (primary) hypertension; Z95.1 Presence of aortocoronary bypass graft; Z95.5 Presence of coronary angioplasty implant and graft; I42.9 Cardiomyopathy, unspecified
CPT/HCPCS: 36415; 80048; 83880

== ENCOUNTER → 2020-07-22 15:24 | Outpatient (CLI) | payer MEDICARE, SELFPAY ==
[2018-04-17 15:43] VITALS: BMI 20.8
[2020-07-22 16:54] LABS: COVID19 -Nasal RAPID Negative (Negative)
== END ==
PROVIDERS: Family Provider Internal Medicine; PCP Internal Medicine; Visit Provider Nurse Practitioner
DX: Z11.59 Encounter for screening for other viral diseases (principal)
CPT/HCPCS: 87635

== ENCOUNTER → 2020-07-24 08:54 | Outpatient (CLI) | payer MEDICARE, SELFPAY ==
[2018-04-17 15:43] VITALS: BMI 20.8
--- NOTE | 2020-07-24 18:38 | DI.NM.S_ITS ---
DATE OF SERVICE: 07/24/2020 PROCEDURE: Pharmacological perfusion study. INDICATIONS: History of coronary artery disease status post bypass surgery, RCA stent in 2018, history of chest pain, shortness of breath, worsening LV function with LV ejection fraction 35-40 percent on echocardiogram done on 06/07/2020. RADIOPHARMACEUTICAL: 27.3 millicurie technetium-99m Myoview IV was injected at stress and 12.0 millicurie technetium-99m Myoview IV was injected at rest. CARDIAC STRESS: The patient underwent IV Lexiscan perfusion study under the supervision of an attending staff, as per standard IV Lexiscan protocol. She remained hemodynamically stable. The patient developed significant dyspnea and abdominal cramping with Lexiscan, which got resolved by itself. Baseline rhythm was sinus with right bundle branch block. During stress, patient has intermittent PVCs without any sustained ventricular tachycardia. No new convincing ischemic changes. RAW DATA: Breast shadow was seen. There is increased subdiaphragmatic activity. GATED STUDY: Resting LV ejection fraction 37 percent and stress LV ejection fraction 38 percent. Resting end-diastolic volume 153 mL. TID ratio 0.99, which is within normal limits. Lung/heart ratio 0.38, which is within normal limits. There appears to be global hypokinesis. MYOCARDIAL PERFUSION: Stress supine, resting supine and stress prone images were compared to each other. Stress supine and resting supine images revealed minimally decreased perfusion of inferoapex. However, on the stress prone, there was a moderate-sized, moderately decreased perfusion of inferior wall extending into the inferoapex, as well as anteroapex. CONCLUSION: During stress supine and resting supine, there is a fixed inferior apical defect. However, during stress prone, there is significant inferior wall defect which is extending into the inferoapex and anteroapex. During prone, this inferior wall defect is new. There is a worsening left ventricular function. Left ventricle is dilated. In April,, left ventricular ejection fraction post stress was 69 and at rest 53 percent and at that time there was normal myocardial perfusion. Resting end-diastolic volume 100 mL. In this study, resting end-diastolic volume increased to 153 mL and resting left ventricular ejection fraction decreased to 37 percent. During stress prone, there is a new inferior wall defect extending into the inferoapex and anteroapex. This is not seen during the resting supine or stress supine images. The patient has history of right coronary artery stent in 2018. There is a possibility of right coronary artery occlusive disease. I will call this study an abnormal myocardial perfusion study. Correlate clinically. I talked to Dr. David, as well, and conveyed the results over the phone. Lindsay Aguilar - Sergey/mateo doc#: [id number]/job#: [id number] dd: 07/24/2020 17:16:00 dt: 07/24/2020 18:07:00 DICTATING MD/COPIES TO: Emerson Hernandez MD; Ck David MD COPIES MNE: ALAN;
== END ==
PROVIDERS: Family Provider Internal Medicine; PCP Internal Medicine; Referring Provider Internal Medicine Cardiovascular Disease; Visit Provider Internal Medicine Cardiovascular Disease
DX: I25.10 Atherosclerotic heart disease of native coronary artery without angina pectoris (principal); I42.9 Cardiomyopathy, unspecified; R06.02 Shortness of breath; R94.39 Abnormal result of other cardiovascular function study; Z95.1 Presence of aortocoronary bypass graft; Z95.5 Presence of coronary angioplasty implant and graft
CPT/HCPCS: 78452; 93017; A9502; J2785

== ENCOUNTER → 2020-11-13 14:04 | Outpatient (CLI) | payer MEDICARE, SELFPAY ==
[2018-04-17 15:43] VITALS: BMI 20.8
--- NOTE | 2020-11-13 14:06 | DI.RAD.S_ITS ---
PROCEDURE: XR FOOT LT MIN 3V INDICATIONS: Lt Foot Pain TECHNIQUE: 3 views of the foot were acquired. COMPARISON: [facility], CR, XR FOOT LT MIN 3V, 06/09/2019, 16:46. FINDINGS: Bones: No fractures or dislocations. There is slight narrowing of the joint interspace at the 1st MTP joint. No suspicious bony lesions. Soft tissues: No tibiotalar joint effusion. Achilles tendon appears normal. 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 Dictated by: Oliverio Quiroga M.D. on 11/13/2020 at 14:42 Approved by: Oliverio Quiroga M.D. on 11/13/2020 at 14:43
== END ==
PROVIDERS: Family Provider Internal Medicine; PCP Internal Medicine; Referring Provider Physician Assistant; Visit Provider Physician Assistant
DX: M79.672 Pain in left foot (principal)
CPT/HCPCS: 73630

== ENCOUNTER 2021-01-21 15:06 | Emergency (ER) | payer MEDICARE, SELFPAY ==
[2018-04-17 15:43] VITALS: BMI 20.8
[2021-01-21] VITALS (12 sets, daily range): BP systolic 177–211; BP diastolic 70–98; PULSE 67–87; RESP 22–24; TEMP 36.8; O2SAT 91–100
--- NOTE | 2021-01-21 15:26 | PC.NURSE ---
Pt states that she works at [employer] 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 She states with all that activity and stress that her body is breaking down on her. She reports bilat shoulder pain and neck pain that she believes is from being so tense. And also reports when she sits on one side of her buttocks for too long that side gets numb and tingling and she gets that pins and needles/itching feeling. Pt is ambulating well. VS stable.
--- NOTE | 2021-01-21 15:48 | PC.NURSE ---
Pt has been given a [facility] book[place] [facility]old to [place] Friday
--- NOTE | 2021-01-21 15:53 | ED_ITS ---
HPI - Back Pain/Injury <Josué Aguirre MD - Last Filed: 01/22/21 15:58> General Chief Complaint: Back Pain/Injury Stated Complaint: Pain, Itching,Tingling Time Seen by Provider: 01/21/21 15:30 Source: patient History of Present Illness HPI Narrative: Patient is a very active 85-year-old female patient. Complains of 1 week of bilateral trapezius muscle pain. Difficult to rotate head left and right, especially when she is driving. Has been taking home Tylenol without relief. No known injury. Gets intermittent bilateral arm tingling to the forearms that ?itches?. No weakness. Also complains ongoing for greater than 2 years intermittent gluteal pain when sitting long time on the seat in front of the computer. Pain does not radiate to the legs. Patient takes care of her adult son that is legally blind secondary to diabetes., takes care of him during the day and then she goes work at [employer] in the evening from 6:00 p.m. until 10:00 p.m.. Denies any chest pain no abdominal pain. Denies any claudication Related Data Home Medications Medication Instructions Recorded Confirmed tiotropium bromide [Spiriva with 1 puff INH DAILY #0 04/28/17 08/22/18 HandiHaler] aspirin 81 mg PO QDAY #0 07/11/17 08/22/18 lisinopril 40 mg PO DAILY 04/19/18 08/22/18 albuterol sulfate [Ventolin HFA] 2 puff INHALATION Q4H PRN 07/07/18 08/22/18 fluticasone propion-salmeterol 1 inh INHALATION BID 07/07/18 08/22/18 [Advair Diskus] fluticasone propionate [Flonase 1 spray INTRANASAL BID PRN 07/07/18 08/22/18 Allergy Relief] ipratropium bromide [Atrovent HFA] 2 puff INHALATION QID 07/07/18 08/22/18 levothyroxine 75 mcg PO DAILY 07/07/18 08/22/18 multivitamin 1 tab PO DAILY 07/07/18 08/22/18 nitroglycerin [Nitrostat] 0.4 mg SUBLINGUAL Q5-15M PRN 07/07/18 08/22/18 omega 4-ekm-bxw-fish oil [Fish Oil] 1,000 mg PO DAILY 07/07/18 08/22/18 prednisone 1 dose PO DIRECTED 07/07/18 08/22/18 triamterene-hydrochlorothiazid 1 tab PO DAILY 07/07/18 08/22/18 vitamin E 400 unit PO DAILY 07/07/18 08/22/18 Previous Rx's Medication Instructions Recorded atorvastatin [Lipitor] 40 mg PO BEDTIME #180 tab 04/20/18 ipratropium-albuterol 3 ml INHALATION Q6-8H PRN #90 ml 11/04/18 prednisone 20 mg PO DAILY #5 tab 11/04/18 furosemide [Lasix] 20 mg PO BID #6 tab 01/16/19 furosemide [Lasix] 20 mg PO DAILY #5 tab 01/16/19 prednisone 20 mg PO DAILY #5 tab 09/16/19 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 10 mg PO TID PRN #10 tab 01/21/21 Allergies Allergy/AdvReac Type Severity Reaction Status Date / Time acarbose Allergy Intermediate Abdominal Verified 01/27/19 21:35 Pain amlodipine Allergy Intermediate Verified 01/27/19 21:35 chlorthalidone Allergy Intermediate Redness of Verified 01/27/19 21:35 Skin doxazosin [From Cardura] Allergy Intermediate Rash Verified 01/27/19 21:35 doxycycline Allergy Intermediate Rash Verified 01/27/19 21:35 gemfibrozil Allergy Intermediate Rash Verified 01/27/19 21:35 levofloxacin Allergy Intermediate Rash Verified 01/27/19 21:35 losartan Allergy Intermediate Rash Verified 01/27/19 21:35 metoprolol Allergy Intermediate Verified 01/27/19 21:35 montelukast [From Singulair] Allergy Intermediate Difficulty Verified 01/27/19 21:35 Breathing nifedipine Allergy Intermediate Chills Verified 01/27/19 21:35 Sulfa (Sulfonamide Allergy Intermediate rash Verified 01/27/19 21:35 Antibiotics) sulfamethoxazole Allergy Intermediate Rash Verified 01/27/19 21:35 [From Bactrim] trimethoprim [From Bactrim] Allergy Intermediate Rash Verified 01/27/19 21:35 budesonide [From Symbicort] Allergy Mild Anxiety Verified 01/27/19 21:35 carvedilol Allergy Mild Rash Verified 01/27/19 21:35 choline fenofibrate Allergy Mild Gastrointestinal Verified 01/27/19 21:35 [From Trilipix] Upset formoterol [From Symbicort] Allergy Mild Anxiety Verified 01/27/19 21:35 Review of Systems <Josué Aguirre MD - Last Filed: 01/22/21 15:58> Review of Systems Narrative: GENERAL: Denies chills, fatigue, malaise, fever, sweats. HEENT: Denies sinus pain, ear pain, sore throat RESPIRATORY: Denies dyspnea, cough CARDIOVASCULAR: Denies chest pain, palpitations GASTROINTESTINAL: Denies nausea, vomiting, abdominal pain : Denies dysuria, frequency, hematuria MUSCULOSKELETAL: Complaint muscle or bony pain SKIN: Denies rash, skin lesions NEUROLOGIC: Denies weakness, complaint numbness ROS Unobtainable: All systems reviewed & are unremarkable except as noted in HPI and below Patient History <Josué Aguirre MD - Last Filed: 01/22/21 15:58> Medical History (Updated 01/21/21 @ 19:27 by Rima Woodard DO) Aneurysm of infrarenal abdominal aorta Bilateral carpal tunnel syndrome CAD (coronary artery disease) COPD (chronic obstructive pulmonary disease) with emphysema Elevated TSH HTN (hypertension) Hyperlipidemia Unstable angina Valvular heart disease Surgical History H/O hysterectomy with oophorectomy H/O three vessel coronary artery bypass Hx of heart artery stent Status post cholecystectomy Social History household members: children Smoking Status: Former smoker alcohol intake: never Smoking Status: Former smoker alcohol intake frequency: 0-2 drinks per day Substance Use Type: does not use Exam <Josué Aguirre MD - Last Filed: 01/22/21 15:58> Narrative Exam Narrative: GENERAL: in no distress, not toxic not dyspneic HEAD: Normocephalic. EYES: Pupils equal round No scleral icterus. No injection no discharge ENT: Mucous membranes moist. NECK: Trachea midline. Reproducible tenderness left greater and right trapezius muscle with spasm/tightness. Increased pain with rotating head right left. No midline tenderness or step-off. CARDIOVASCULAR: Regular rate and rhythm without murmurs. Palpable bilateral radial pulses as well as femoral pulses RESPIRATORY: Clear to auscultation. Breath sounds equal bilaterally. No wheezes, rales, or rhonchi. GASTROINTESTINAL: Abdomen soft, non-tender no pulsating mass. EXTREMITIES: No gross deformities. BACK: No flank tenderness. No midline tenderness or step-off. No rash. No pain with bilateral straight leg raises. NEURO: AOx4. Clear speech no facial droop light touch intact to bilateral arms and hands with strong equal community pharmacist. Strong bilateral patellar reflexes. SKIN: Warm and dry PSYCH: Not anxious, is cooperative Initial Vital Signs Initial Vital Signs: Vital Signs Temperature 98.2 F 01/21/21 15:12 Pulse Rate 82 01/21/21 15:12 Respiratory Rate 22 01/21/21 15:12 Blood Pressure 182/87 H 01/21/21 15:12 Pulse Oximetry 100 01/21/21 15:12 <Rima Woodard DO - Last Filed: 01/21/21 23:57> Initial Vital Signs Initial Vital Signs: Vital Signs Temperature 98.2 F 01/21/21 15:12 Pulse Rate 82 01/21/21 15:12 Respiratory Rate 22 01/21/21 15:12 Blood Pressure 182/87 H 01/21/21 15:12 Pulse Oximetry 100 01/21/21 15:12 Course <Josué Aguirre MD - Last Filed: 01/22/21 15:58> Course Course Narrative: Blood pressure noted on arrival. Again no chest pain or abdominal pain. No back pain. Has gluteal pain, no claudication 6:[address] woodard, awaiting call back from [facility] vascular surgery services for consult. Patient understands at this time we are waiting for phone call for further instructions Orders Ordered: Discontinued Medications Sodium Chloride (Normal Saline 0.9%) 500 mls @ 1,000 mls/hr IV BOLUS ONE Stop: 01/21/21 16:54 Last Infusion: 01/21/21 17:39 Dose: 0 mls/hr Documented by: Admin: 01/21/21 16:34 Dose: 1,000 mls/hr Documented by: RAYNE Ibuprofen (Ibuprofen 400 Mg Tablet) 400 mg PO NOW ONE Stop: 01/21/21 15:53 Last Admin: 01/21/21 16:32 Dose: 400 mg Documented by: RAYNE Lisinopril (Lisinopril 20 Mg Tablet) 20 mg PO NOW ONE Stop: 01/21/21 17:58 Last Admin: 01/21/21 18:10 Dose: 20 mg Documented by: SUZANNE Reevaluation(s) Reevaluation #1: Spoke with patient my discussion with vascular surgeon from [facility]. She agrees with treatment plan. Also reviewed with her blood pressure. She states they always runs high. Informed her that it needs to be better controlled given aneurysm. She does have family physician she will call on Friday to have blood pressure medication changes. In the meantime, I have informed her may need to take lisinopril currently twice a day. 40 mg twice a day. She needs to measure her blood pressure before the 2nd dose. Time: 18:27 Consultations Consultation #1: Spoke with [facility] vascular surgeon Dr Hampton, he was able to review the films, his interpretation the aneurysm is not as large as radiology report. At this time it appears stable and would not recommend surgery at this time. However would recommend following up with [facility] vascular surgery to follow patient. Recommends repeat imaging in 1 year. Vital Signs Vital signs: Vital Signs - 8 hr 01/21/21 17:13 01/21/21 17:35 01/21/21 17:49 Pulse Rate 87 83 74 Respiratory Rate Blood Pressure 211/98 H Pulse Oximetry 91 94 98 01/21/21 17:52 01/21/21 17:53 01/21/21 18:00 Pulse Rate 76 73 76 Respiratory Rate Blood Pressure 207/95 H 196/93 H 177/90 H Pulse Oximetry 98 98 97 01/21/21 18:10 01/21/21 18:30 01/21/21 18:45 Pulse Rate 74 69 72 Respiratory Rate 22 22 Blood Pressure 177/90 H 192/83 H 192/70 H Pulse Oximetry 94 95 01/21/21 19:02 01/21/21 19:43 Pulse Rate 75 67 Respiratory Rate 24 Blood Pressure 182/84 H Pulse Oximetry 97 94 <Rima Woodard DO - Last Filed: 01/21/21 23:57> Orders Ordered: Discontinued Medications Sodium Chloride (Normal Saline 0.9%) 500 mls @ 1,000 mls/hr IV BOLUS ONE Stop: 01/21/21 16:54 Last Infusion: 01/21/21 17:39 Dose: 0 mls/hr Documented by: Admin: 01/21/21 16:34 Dose: 1,000 mls/hr Documented by: RAYNE Ibuprofen (Ibuprofen 400 Mg Tablet) 400 mg PO NOW ONE Stop: 01/21/21 15:53 Last Admin: 01/21/21 16:32 Dose: 400 mg Documented by: RAYNE Lisinopril (Lisinopril 20 Mg Tablet) 20 mg PO NOW ONE Stop: 01/21/21 17:58 Last Admin: 01/21/21 18:10 Dose: 20 mg Documented by: SUZANNE Vital Signs Vital signs: Vital Signs - 8 hr 01/21/21 17:13 01/21/21 17:35 01/21/21 17:49 Pulse Rate 87 83 74 Respiratory Rate Blood Pressure 211/98 H Pulse Oximetry 91 94 98 01/21/21 17:52 01/21/21 17:53 01/21/21 18:00 Pulse Rate 76 73 76 Respiratory Rate Blood Pressure 207/95 H 196/93 H 177/90 H Pulse Oximetry 98 98 97 01/21/21 18:10 01/21/21 18:30 01/21/21 18:45 Pulse Rate 74 69 72 Respiratory Rate 22 22 Blood Pressure 177/90 H 192/83 H 192/70 H Pulse Oximetry 94 95 01/21/21 19:02 01/21/21 19:43 Pulse Rate 75 67 Respiratory Rate 24 Blood Pressure 182/84 H Pulse Oximetry 97 94 MDM - Back Pain/Injury <Josué Aguirre MD - Last Filed: 01/22/21 15:58> Differential Diagnosis Differential diagnosis: Likely sciatica, AAA and other (Sciatica/torticollis) Lab Data Attestation: I reviewed the patient's lab results. Result diagrams: 01/21/21 16:45 01/21/21 16:45 Labs: Lab Results 01/21/21 01/21/21 Range/Units 16:45 16:45 WBC 7.5 (4.5-11.0) X10^3/uL RBC 5.01 (4.0-5.2) X10^6/uL Hgb 14.3 (12.0-16.0) g/dL Hct 42.5 (36-46) % MCV 84.8 (80-100) fL MCH 28.4 (26-34) PG MCHC 33.6 (30-36) % RDW 14.6 (11.6-14.8) % Plt Count 220 (150-400) X10^3/uL Neut % (Auto) 71.4 (50-75) % Lymph % (Auto) 15.2 L (25-40) % [place] % (Auto) 8.7 (3-14) % Eos % (Auto) 3.2 (2-4) % Baso % (Auto) 1.5 (0-2) % Neut # (Auto) 5400 (8883-1444) /uL Lymph # (Auto) 1100 (3835-3091) /uL [place] # (Auto) 700 (0-900) /uL Eos # (Auto) 200 (0-450) /uL Baso # (Auto) 100 (0-100) /uL Sodium 136 L (137-145) mmol/L Potassium 3.8 (3.4-5.1) mmol/L Chloride 101 (98-107) mmol/L Carbon Dioxide 29 (22-32) mmol/L BUN 17 (7-17) mg/dL Creatinine 0.97 (0.52-1.04) mg/dL Estimated GFR 54.7 L (>60) mL/min BUN/Creatinine Ratio 17.5 (6-22) Glucose 100 (80-110) mg/dL Calcium 10.2 (8.4-10.2) mg/dL Total Bilirubin 0.7 (0.2-1.3) mg/dL AST 34 (14-36) IU/L ALT 18 (<35) IU/L Alkaline Phosphatase 80 (38-126) U/L Total Protein 7.1 (6.3-8.2) g/dL Albumin 3.9 (3.5-5.0) g/dL Globulin 3.2 (1.7-4.1) g/dL Albumin/Globulin Ratio 1.2 (1.0-2.8) Imaging Data X-ray cervical spine: Radiologist's Impression: [address] [id number] ReportSigned Patient: Lindsay Aguilar AMR#: [id number]: 7Acct:[id number]/Sex: 85 / FDate of Service: 01/21/21Loc: EDAccession Number: [id number] Procedure: XR cervical spine 2V or 3V Ordering Provider: Josué Aguirre MD PROCEDURE: XR CERVICAL SPINE 2V OR 3V INDICATIONS: Pain TECHNIQUE: 3 view(s) of the cervical spine were acquired. COMPARISON: [facility], , CERVICAL SPINE 2 OR 3 VIEWS, 09/27/2016, 16:42. [facility], CR, XR LUMBAR SPINE 2-3V, 01/21/2021, 15:53. FINDINGS: Bones: No fractures or dislocations to the T1 level. The lateral masses of C1 appear intact on the odontoid view. No suspicious bony lesions. There is straightening of the normal cervical lordosis. There is whow-ch-glbizboy disc space narrowing seen at C5-C6 and C6-C7. Sternotomy wires are seen. Soft tissues: No prevertebral soft tissue swelling. Atherosclerotic calcification of the aortic arch is noted. The visualized lung demonstrates an unremarkable appearance. IMPRESSION: Lower cervical spine degenerative changes are seen, which are similar to 2017. Straightening of the normal cervical lordosis is seen, which is commonly observe d in patients with muscular spasm. Dictated by: Hernando Lake M.D. on 01/21/2021 at 15:17 Approved by: Hernando Lake M.D. on 01/21/2021 at 15:18 X-ray lumbar spine: Radiologist's Impression: [address] [id number] ReportSigned Patient: Lindsay Aguilar AMR#: [id number]: 1936cct:[id number]/Sex: 85 / FDate of Service: 01/21/21Loc: EDAccession Number: [id number] Procedure: XR lumbar spine 2-3V Ordering Provider: Josué Aguirre MD PROCEDURE: XR LUMBAR SPINE 2-3V INDICATIONS: Pain TECHNIQUE: 3 views of the lumbar spine were acquired. COMPARISON: [facility], CT, ABDOMEN/PELVIS WITH CONTRAST, 06/18/2017, 8:29. [facility], CR, XR CERVICAL SPINE 2V OR 3V, 01/21/2021, 15:53. FINDINGS: Bones: 5 ftp-[id number]-[id number] vertebrae are present. There is normal bony alignment. There is a remote appearing T11 compression deformity. No acute vertebral body compression fractures. No suspicious bony lesions. The disc heights are well preserved. Lower lumbar spine facet arthropathy is seen. Soft tissues: Overlying bowel gas pattern is normal. Atherosclerotic calcification is noted. There is an immobile at area can years and seen, which demonstrates a saccular character, which is eccentric to the left. This measures at least 6 cm AP and 6.2 cm transversely and 6.5 cm craniocaudal. Cholecystectomy clips are seen. 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 When clinically appropriate, dedicated ultrasound or CT follow-up would be recommended. Mild, age-appropriate degenerative changes are seen. Incidental note is made of: Remote appearing T11 compression deformity Cholecystectomy clips Dictated by: Hernando Lake M.D. on 01/21/2021 at 15:13 Approved by: Hernando Lake M.D. on 01/21/2021 at 15:17 CT angiogram abdomen and pelvis: Radiologist's Impression: [address] [id number] Scan ReportSigned Patient: Lindsay Aguilar AMR#: [id number]: [id number]:[id number]/Sex: 85 / FDate of Service: 01/21/21Loc: EDAccession Number: [id number] Procedure: CT angio abdomen pelvis Ordering Provider: Josué Aguirre MD PROCEDURE: CT ANGIO ABDOMEN PELVIS INDICATIONS: back pain TECHNIQUE: After the administration of intravenous contrast, 2.5 mm thick sections acquired from the diaphragm to the symphysis. 10 mm maximum-intensity projection (MIP) reformats were then acquired. For radiation dose reduction, the following was used: automated exposure control. COMPARISON: [facility], CT, ANGIO CHEST ABDOMEN PELVIS, 11/06/2017, 18:40. [facility], CT, ABDOMEN/PELVIS WITH CONTRAST, 06/18/2017, 8:29. [facility], CR, XR LUMBAR SPINE 2-3V, 01/21/2021, 15:53. FINDINGS: Image quality: Excellent. Aorta: There is an irregular saccular aneurysm seen involving the left side of the proximal abdominal aorta, beginning above the level of the renal arteries. The maximum AP dimension is 4.8 cm, with a maximum transverse extent 5.5 cm. The saccular aneurysm measures 5 cm craniocaudal. There is prominent mural thrombus seen. More inferiorly, there is a small saccular aneurysm seen with mural thrombus, as on series 4, image 65 and on series 8, image 48 measures 3.2 cm transversely, with a craniocaudal extent of 2.5 cm. 2 right renal arteries are seen, with 40-50% narrowing seen involving each renal artery. On the left, there is a deformed renal artery seen, with at least 60% narrowing proximally, with moderate atherosclerotic calcification. Mesenteric arteries: Celiac trunk, superior and inferior mesenteric arteries appear patent. Right pelvic arteries: Atherosclerotic calcification is seen throughout. There is approximately 50% narrowing seen involving the distal right common iliac artery. There is approximately 70% narrowing seen involving the right proximal external iliac artery. Approximately 80% narrowing can be seen involving the origin of the right internal iliac artery. There is approximately 70% narrowing seen involving the right common femoral artery. Left pelvic arteries: Atherosclerotic calcification and irregularity can be seen. There is 50-70% narrowing seen involving the left proximal common iliac artery. There is at least 50% narrowing seen involving the left proximal external iliac artery with approximately 50% narrowing seen involving the left proximal internal iliac artery. Approximately 50% narrowing is seen involving the left proximal femoral artery. Extravascular soft tissues: Lung bases are clear. Heart size is moderately enlarged. Sternotomy wires and apparent abandoned epicardial leads are seen. There is a small to moderate hiatal hernia seen. Liver is normal in size and enhancement. Gallbladder has been removed. Biliary system is non dilated. Pancreas enhances normally. Spleen is normal in size and enhancement. Incidental note is made of an accessory splenule along the hilum of the primary spleen. No adrenal nodules. Kidneys are normal in size and enhancement, without hydronephrosis. Non opacified bowel loops are normal in wall thickness and caliber. No free fluid or air. No retroperitoneal or mesenteric adenopathy. No ventral hernias. This patient is status post hysterectomy. No adnexal masses are seen. No suspicious bony lesions. No vertebral body compression fractures. Mild dextroconvex scoliotic curvature is seen. Age-appropriate bony degenerative changes are seen. There is a fat containing left inguinal hernia. 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 These aneurysms have increased in size over time. There is moderate cardiomegaly. Extensive calcification with multifocal narrowings can be seen involving the bilateral iliac systems as well as the common femoral arteries. Interventional radiology consultation is recommended. Incidental note is made of: Small to moderate hiatal hernia Sternotomy wires Apparent abandoned epicardial leads Cholecystectomy Accessory splenule Hysterectomy Dextroconvex scoliotic curvature Fat containing left inguinal hernia Dictated by: Hernando Lake M.D. on 01/21/2021 at 16:45 Approved by: Hernando Lake M.D. on 01/21/2021 at 16:58 [facility] Narrative Medical decision making narrative: Exam reassuring. Imaging reassuring. Likely has cervical radiculopathy and sciatica. Would benefit for outpatient MRI. Will give referral to Ortho Spine for evaluation as well. Will need vascular referral as well. At this time abdominal aneurysm incidental finding on x-ray. No pulsating mass felt on abdominal exam. Findings on CT angiogram vessels admin asst arnol. <Rima Woodard, DO - Last Filed: 01/21/21 23:57> Lab Data Labs: Lab Results 01/21/21 01/21/21 Range/Units 16:45 16:45 WBC 7.5 (4.5-11.0) X10^3/uL RBC 5.01 (4.0-5.2) X10^6/uL Hgb 14.3 (12.0-16.0) g/dL Hct 42.5 (36-46) % MCV 84.8 (80-100) fL MCH 28.4 (26-34) PG MCHC 33.6 (30-36) % RDW 14.6 (11.6-14.8) % Plt Count 220 (150-400) X10^3/uL Neut % (Auto) 71.4 (50-75) % Lymph % (Auto) 15.2 L (25-40) % [place] % (Auto) 8.7 (3-14) % Eos % (Auto) 3.2 (2-4) % Baso % (Auto) 1.5 (0-2) % Neut # (Auto) 5400 (4461-7277) /uL Lymph # (Auto) 1100 (6026-7399) /uL [place] # (Auto) 700 (0-900) /uL Eos # (Auto) 200 (0-450) /uL Baso # (Auto) 100 (0-100) /uL Sodium 136 L (137-145) mmol/L Potassium 3.8 (3.4-5.1) mmol/L Chloride 101 (98-107) mmol/L Carbon Dioxide 29 (22-32) mmol/L BUN 17 (7-17) mg/dL Creatinine 0.97 (0.52-1.04) mg/dL Estimated GFR 54.7 L (>60) mL/min BUN/Creatinine Ratio 17.5 (6-22) Glucose 100 (80-110) mg/dL Calcium 10.2 (8.4-10.2) mg/dL Total Bilirubin 0.7 (0.2-1.3) mg/dL AST 34 (14-36) IU/L ALT 18 (<35) IU/L Alkaline Phosphatase 80 (38-126) U/L Total Protein 7.1 (6.3-8.2) g/dL Albumin 3.9 (3.5-5.0) g/dL Globulin 3.2 (1.7-4.1) g/dL Albumin/Globulin Ratio 1.2 (1.0-2.8) MDM Narrative Medical decision making narrative: Seen and evaluated patient myself, received sign-out from day shift provider. Patient has an incidental finding of an aneurysm although she states it has been there for 20 years and she was told that it is inoperable. She is here for torticollis and some sciatic pain. She complains of some buttock pain when she sits down and feels some numbness and tingling down her legs. This improved the sooner she stands up. Based on the symptoms I do not believe her back pain to be caused by her aneurysm. She has no pain in her buttock while walking, unlikely to be claudication. She has good strong distal pedal pulses in her lower extremities bilaterally. She has no dizziness lightheadedness no abdominal pain. She is noted to be hypertensive in the ED are and has multiple allergies to multiple blood pressure medications. Her abdomen is soft and nontender without pulsatile mass. Vascular surgery at local facility was consulted and due to location of aneurysm would refer to [facility]. Awaiting for [facility] vascular surgery to return phone call. 1940 Patient is wanting to go home her neck feels better she is able to turn it after ibuprofen. She is unable to drive in the dark. She fully understands that persistently elevated blood pressure can cause her aneurysm to rupture which will lead to . She says if that is the case then it is her time to go. She is interested in hearing a 2nd opinion. 2018 Dr. Swan, vascular surgeon at [facility] updated patient's symptoms test results at this time would prefer blood pressure to be controlled and is happy to see her I have called patient at home and notified her that vascular surgeon would like to see and evaluate her and she should expect a call from that. Discharge Plan Departure Patient Disposition: Home Clinical Impression: Trapezius muscle spasm Sciatica Qualifiers: Laterality: unspecified laterality Qualified Code(s): M54.30 - Sciatica, unspecified side Abdominal aortic aneurysm Qualifiers: Presence of rupture: without rupture Qualified Code(s): I71.4 - Abdominal aortic aneurysm, without rupture Instructions: DI for Sciatica, DI for Torticollis, DI for Muscle Spasm Activity Restrictions/Additional Instructions: See family doctor this week to get your blood pressure recheck and medications adjusted. Persistently elevated blood pressure put your aneurysm at risk for rupturing which could lead to instant I have not yet spoken to the vascular surgeon at [facility] but when I do I will give him your information and they will call you. Please return to the emergency department if you have any increasing pain numbness tingling or weakness Prescriptions: New 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 10 mg tablet 10 mg PO TID PRN (Reason: muscle spasm) Qty: 10 RF: 0 No Action tiotropium bromide [Spiriva with HandiHaler] 18 MCG capsule, w/inhalation device 1 puff INH DAILY Qty: 0 RF: 0 aspirin 81 MG tablet,delayed release (DR/EC) 81 mg PO QDAY Qty: 0 RF: 0 lisinopril 40 mg Tablet 40 mg PO DAILY RF: 0 atorvastatin [Lipitor] 20 mg Tablet 40 mg PO BEDTIME Qty: 180 RF: 0 prednisone 10 mg tablet 1 dose PO DIRECTED RF: 0 levothyroxine 75 mcg tablet 75 mcg PO DAILY RF: 0 albuterol sulfate [Ventolin HFA] 90 mcg/actuation HFA aerosol inhaler 2 puff Inhalation Q4H PRN (Reason: Shortness Of Breath) RF: 0 triamterene-hydrochlorothiazid 37.5-25 mg tablet 1 tab PO DAILY RF: 0 fluticasone propion-salmeterol [Advair Diskus] 250-50 mcg/dose Blister With Device 1 inh INHALATION BID RF: 0 ipratropium bromide [Atrovent HFA] 17 mcg/actuation Hfa Aerosol Inhaler 2 puff Inhalation QID RF: 0 omega 7-kce-cbe-fish oil [Fish Oil] 1,000 mg (120 mg-180 mg) Capsule 1,000 mg PO DAILY RF: 0 nitroglycerin [Nitrostat] 0.4 mg Tablet, Sublingual 0.4 mg SUBLINGUAL Q5-15M PRN (Reason: Chest Pain) RF: 0 fluticasone propionate [Flonase Allergy Relief] 50 mcg/actuation [place],Suspension 1 spray Intranasal BID PRN (Reason: Allergy Symptoms) RF: 0 vitamin E 400 unit Capsule 400 unit PO DAILY RF: 0 multivitamin Tablet,Chewable 1 tab PO DAILY RF: 0 ipratropium-albuterol 0.5 mg-3 mg(2.5 mg base)/3 mL solution for nebulization 3 ml INHALATION Q6-8H PRN (Reason: shortness of breath or wheezing) Qty: 90 RF: 0 prednisone 20 mg tablet 20 mg PO DAILY Qty: 5 RF: 0 furosemide [Lasix] 20 mg tablet 20 mg PO DAILY Qty: 5 RF: 0 furosemide [Lasix] 20 mg tablet 20 mg PO BID Qty: 6 RF: 0 prednisone 20 mg tablet 20 mg PO DAILY Qty: 5 RF: 0 Referrals: Allie Fleming MD [Primary Care Provider] -
--- NOTE | 2021-01-21 16:25 | DI.CT.S_ITS ---
PROCEDURE: CT ANGIO ABDOMEN PELVIS INDICATIONS: back pain TECHNIQUE: After the administration of intravenous contrast, 2.5 mm thick sections acquired from the diaphragm to the symphysis. 10 mm maximum-intensity projection (MIP) reformats were then acquired. For radiation dose reduction, the following was used: automated exposure control. COMPARISON: [facility], CT, ANGIO CHEST ABDOMEN PELVIS, 11/06/2017, 18:40. [facility], CT, ABDOMEN/PELVIS WITH CONTRAST, 06/18/2017, 8:29. [facility], CR, XR LUMBAR SPINE 2-3V, 01/21/2021, 15:53. FINDINGS: Image quality: Excellent. Aorta: There is an irregular saccular aneurysm seen involving the left side of the proximal abdominal aorta, beginning above the level of the renal arteries. The maximum AP dimension is 4.8 cm, with a maximum transverse extent 5.5 cm. The saccular aneurysm measures 5 cm craniocaudal. There is prominent mural thrombus seen. More inferiorly, there is a small saccular aneurysm seen with mural thrombus, as on series 4, image 65 and on series 8, image 48 measures 3.2 cm transversely, with a craniocaudal extent of 2.5 cm. 2 right renal arteries are seen, with 40-50% narrowing seen involving each renal artery. On the left, there is a deformed renal artery seen, with at least 60% narrowing proximally, with moderate atherosclerotic calcification. Mesenteric arteries: Celiac trunk, superior and inferior mesenteric arteries appear patent. Right pelvic arteries: Atherosclerotic calcification is seen throughout. There is approximately 50% narrowing seen involving the distal right common iliac artery. There is approximately 70% narrowing seen involving the right proximal external iliac artery. Approximately 80% narrowing can be seen involving the origin of the right internal iliac artery. There is approximately 70% narrowing seen involving the right common femoral artery. Left pelvic arteries: Atherosclerotic calcification and irregularity can be seen. There is 50-70% narrowing seen involving the left proximal common iliac artery. There is at least 50% narrowing seen involving the left proximal external iliac artery with approximately 50% narrowing seen involving the left proximal internal iliac artery. Approximately 50% narrowing is seen involving the left proximal femoral artery. Extravascular soft tissues: Lung bases are clear. Heart size is moderately enlarged. Sternotomy wires and apparent abandoned epicardial leads are seen. There is a small to moderate hiatal hernia seen. Liver is normal in size and enhancement. Gallbladder has been removed. Biliary system is non dilated. Pancreas enhances normally. Spleen is normal in size and enhancement. Incidental note is made of an accessory splenule along the hilum of the primary spleen. No adrenal nodules. Kidneys are normal in size and enhancement, without hydronephrosis. Non opacified bowel loops are normal in wall thickness and caliber. No free fluid or air. No retroperitoneal or mesenteric adenopathy. No ventral hernias. This patient is status post hysterectomy. No adnexal masses are seen. No suspicious bony lesions. No vertebral body compression fractures. Mild dextroconvex scoliotic curvature is seen. Age-appropriate bony degenerative changes are seen. There is a fat containing left inguinal hernia. 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 These aneurysms have increased in size over time. There is moderate cardiomegaly. Extensive calcification with multifocal narrowings can be seen involving the bilateral iliac systems as well as the common femoral arteries. Interventional radiology consultation is recommended. Incidental note is made of: Small to moderate hiatal hernia Sternotomy wires Apparent abandoned epicardial leads Cholecystectomy Accessory splenule Hysterectomy Dextroconvex scoliotic curvature Fat containing left inguinal hernia Dictated by: Hernando Lake M.D. on 01/21/2021 at 16:45 Approved by: Hernando Lake M.D. on 01/21/2021 at 16:58
[2021-01-21] MEDS: IBUPROFEN 400 MG TABLET PO (16:32)
[2021-01-21] MEDS: SODIUM CHLORIDE 0.9% 500 ML 1000 ML IV (16:34)
[2021-01-21 16:55] LABS: Add Manual Diff / Slide Review NO; Basophils Absolute Auto 100 /uL (0-100); Basophils Percent Auto 1.5 % (0-2); Eosinophils Absolute Auto 200 /uL (0-450); Eosinophils Percent Auto 3.2 % (2-4); Hematocrit 42.5 % (36-46); Hemoglobin 14.3 g/dL (12.0-16.0); Lymphocytes Absolute Auto 1100 /uL (1100-4500); Lymphocytes Percent Auto 15.2 % (25-40); Mean Corpuscular HGB Conc 33.6 % (30-36); Mean Corpuscular Hemoglobin 28.4 PG (26-34); Mean Corpuscular Volume 84.8 fL (80-100); Monocytes Absolute Auto 700 /uL (0-900); Monocytes Percent Auto 8.7 % (3-14); Neutrophils Absolute Auto 5400 /uL (1500-7000); Neutrophils Percent Auto 71.4 % (50-75); Platelet Count 220 X10^3/uL (150-400); Red Blood Cell Count 5.01 X10^6/uL (4.0-5.2); Red Cell Distribution Width 14.6 % (11.6-14.8); White Blood Cell Count 7.5 X10^3/uL (4.5-11.0)
[2021-01-21 17:05] LABS: Alanine Aminotransferase 18 IU/L (<35); Albumin 3.9 g/dL (3.5-5.0); Albumin Globulin Ratio 1.2 (1.0-2.8); Alkaline Phosphatase 80 U/L (38-126); Aspartate Aminotransferase 34 IU/L (14-36); BUN Creatinine Ratio 17.5 (6-22); Bilirubin Total 0.7 mg/dL (0.2-1.3); Blood Urea Nitrogen 17 mg/dL (7-17); Calcium 10.2 mg/dL (8.4-10.2); Carbon Dioxide 29 mmol/L (22-32); Chloride 101 mmol/L (98-107); Estimated Glomerular Filt Rate 54.7 mL/min (>60); Globulin 3.2 g/dL (1.7-4.1); Glucose 100 mg/dL (80-110); HEMOLYSIS 15 (0-50); Potassium 3.8 mmol/L (3.4-5.1); Sodium 136 mmol/L (137-145); Total Protein 7.1 g/dL (6.3-8.2)
[2021-01-21] MEDS: lisinopriL 20 MG TABLET PO (18:10)
== END 2021-01-21 19:49 | disposition home or self-care (01) ==
PROVIDERS: Emergency Medicine; Emergency Provider Emergency Medicine; Family Provider Internal Medicine; PCP Internal Medicine
DX: I71.4 Abdominal aortic aneurysm, without rupture (principal); M54.30 Sciatica, unspecified side; M62.838 Other muscle spasm; R21 Rash and other nonspecific skin eruption
CPT/HCPCS: 36415; 72040; 72100; 74174; 80053; 85025; 96360; 99284; Q9967

== ENCOUNTER 2021-02-26 21:54 | Emergency (ER) | payer MEDICARE, SELFPAY ==
[2018-04-17 15:43] VITALS: BMI 20.8
[2021-02-26 22:07] VITALS: BP 188/100; PULSE 83; RESP 16; TEMP 36.4; O2SAT 98; BMI 24.6
--- NOTE | 2021-02-26 22:08 | DI.RAD.S_ITS ---
PROCEDURE: XR FOOT LT MIN 3V INDICATIONS: foot pain and swelling TECHNIQUE: 3 views of the foot were acquired. COMPARISON: [facility], , XR FOOT LT MIN 3V, 11/13/2020, 14:10. FINDINGS: Bones: No fractures or dislocations. No suspicious bony lesions. IP degenerative changes are present. Calcaneal spur is present. Soft tissues: No tibiotalar joint effusion. Achilles tendon appears normal. IMPRESSION: No visualized acute fracture or dislocation. However, if clinical concern and/or pain persist, short interval imaging followup in 7-10 days is recommended, as occult injury cannot be definitively excluded. The above findings are concordant with preliminary report. Dictated by: Nikki Gudino M.D. on 02/27/2021 at 9:39 Approved by: Nikki Gudino M.D. on 02/27/2021 at 9:43
[2021-02-27] MEDS: cephALEXin 250 MG PREPACK 1 BOTTLE MISC (00:26)
[2021-02-27] MEDS: HYDROCODONE/ACET 5/325 PREPACK 1 BOTTLE MISC (00:26)
--- NOTE | 2021-02-27 00:32 | PC.NURSE ---
No ortho shoe available, pt will F/U outpatient.
--- NOTE | 2021-02-27 06:35 | ED_ITS ---
HPI - Extremity Injury (Lower) General Chief Complaint: Extremity Injury, Lower Stated Complaint: foot pain Time Seen by Provider: 02/26/21 22:10 History of Present Illness HPI Narrative: 85-year-old female former smoker with history of COPD presents with family in the chief complaint of gradually worsening left foot pain over the past few days in the absence of any injury. She denies any history of the same and cannot remember any type of injury or overuse. She states that she has been having increasing pain, redness and swelling at the base of her 2nd toe the dorsum of her left foot. She denies systemic findings such as fever, chills nor nausea or vomiting. She states the pain is worse when she walks around and improves with rest, when she kicks her feet. Related Data Home Medications Medication Instructions Recorded Confirmed tiotropium bromide 18 mcg capsule 1 puff INH DAILY #0 04/28/17 08/22/18 with inhalation device (Spiriva with HandiHaler) aspirin 81 mg tablet,delayed 81 mg PO QDAY #0 07/11/17 08/22/18 release lisinopril 40 mg tablet 40 mg PO DAILY 04/19/18 08/22/18 albuterol sulfate 90 mcg/actuation 2 puff INHALATION Q4H PRN 07/07/18 08/22/18 aerosol inhaler fluticasone 250 mcg-salmeterol 50 1 inh INHALATION BID 07/07/18 08/22/18 mcg/dose blistr powdr for inhalation (Advair Diskus) fluticasone propionate 50 1 spray INTRANASAL BID PRN 07/07/18 08/22/18 mcg/actuation nasal spray,suspension (Flonase Allergy Relief) ipratropium bromide 17 2 puff INHALATION QID 07/07/18 08/22/18 mcg/actuation HFA aerosol inhaler (Atrovent HFA) levothyroxine 75 mcg tablet 75 mcg PO DAILY 07/07/18 08/22/18 multivitamin 1 tab PO DAILY 07/07/18 08/22/18 nitroglycerin 0.4 mg sublingual 0.4 mg SUBLINGUAL Q5-15M PRN 07/07/18 08/22/18 tablet (Nitrostat) omega 4-jcg-vqf-fish oil 1,000 mg 1,000 mg PO DAILY 07/07/18 08/22/18 (120 mg-180 mg) capsule (Fish Oil) prednisone 10 mg tablet 1 dose PO DIRECTED 07/07/18 08/22/18 triamterene 37.5 1 tab PO DAILY 07/07/18 08/22/18 mg-hydrochlorothiazide 25 mg tablet vitamin E 400 unit capsule 400 unit PO DAILY 07/07/18 08/22/18 Previous Rx's Medication Instructions Recorded atorvastatin 20 mg tablet (Lipitor) 40 mg PO BEDTIME #180 tab 04/20/18 ipratropium 0.5 mg-albuterol 3 mg 3 ml INHALATION Q6-8H PRN #90 ml 11/04/18 (2.5 mg base)/3 mL nebulization soln prednisone 20 mg tablet 20 mg PO DAILY #5 tab 11/04/18 furosemide 20 mg tablet (Lasix) 20 mg PO BID #6 tab 01/16/19 furosemide 20 mg tablet (Lasix) 20 mg PO DAILY #5 tab 01/16/19 prednisone 20 mg tablet 20 mg PO DAILY #5 tab 09/16/19 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 10 mg tablet 10 mg PO TID PRN #10 tab 01/21/21 cephalexin 500 mg capsule 500 mg PO Q6H 7 Days #28 cap 02/27/21 Allergies Allergy/AdvReac Type Severity Reaction Status Date / Time acarbose Allergy Intermediate Abdominal Verified 01/27/19 21:35 Pain amlodipine Allergy Intermediate Verified 01/27/19 21:35 chlorthalidone Allergy Intermediate Redness of Verified 01/27/19 21:35 Skin doxazosin [From Cardura] Allergy Intermediate Rash Verified 01/27/19 21:35 doxycycline Allergy Intermediate Rash Verified 01/27/19 21:35 gemfibrozil Allergy Intermediate Rash Verified 01/27/19 21:35 levofloxacin Allergy Intermediate Rash Verified 01/27/19 21:35 losartan Allergy Intermediate Rash Verified 01/27/19 21:35 metoprolol Allergy Intermediate Verified 01/27/19 21:35 montelukast [From Singulair] Allergy Intermediate Difficulty Verified 01/27/19 21:35 Breathing nifedipine Allergy Intermediate Chills Verified 01/27/19 21:35 Sulfa (Sulfonamide Allergy Intermediate rash Verified 01/27/19 21:35 Antibiotics) sulfamethoxazole Allergy Intermediate Rash Verified 01/27/19 21:35 [From Bactrim] trimethoprim [From Bactrim] Allergy Intermediate Rash Verified 01/27/19 21:35 budesonide [From Symbicort] Allergy Mild Anxiety Verified 01/27/19 21:35 carvedilol Allergy Mild Rash Verified 01/27/19 21:35 choline fenofibrate Allergy Mild Gastrointestinal Verified 01/27/19 21:35 [From Trilipix] Upset formoterol [From Symbicort] Allergy Mild Anxiety Verified 01/27/19 21:35 Review of Systems Review of Systems Narrative: GENERAL: Denies chills, fatigue, malaise, fever, sweats. HEENT: Denies sinus pain, ear pain, sore throat, difficulty swallowing, dizziness. RESPIRATORY: Denies dyspnea, cough, wheezing, hemoptysis, sputum. CARDIOVASCULAR: Denies chest pain, palpitations, orthopnea, edema, GASTROINTESTINAL: Denies nausea, vomiting, abdominal pain, diarrhea, constipation, melena. : Denies dysuria, frequency, incontinence, hematuria, urinary retention. MUSCULOSKELETAL: See HPI SKIN: See HPI NEUROLOGIC: Denies weakness, headache, numbness, change in speech, confusion, seizures, incoordination. PSYCHIATRIC: No concerning psychosocial issues. 12 point review of systems is negative except for those stated above Patient History Medical History Aneurysm of infrarenal abdominal aorta Bilateral carpal tunnel syndrome CAD (coronary artery disease) COPD (chronic obstructive pulmonary disease) with emphysema Elevated TSH HTN (hypertension) Hyperlipidemia Unstable angina Valvular heart disease Surgical History H/O hysterectomy with oophorectomy H/O three vessel coronary artery bypass Hx of heart artery stent Status post cholecystectomy Social History household members: children Smoking Status: Former smoker alcohol intake: never Smoking Status: Former smoker alcohol intake frequency: 0-2 drinks per day Substance Use Type: does not use Exam Narrative Exam Narrative: GEN: AOx3 and in mild distress EYES: Pupils are equal, round, and reactive to light and accommodation. Extraoccular muscles are intact bilaterally. There is no subconjunctival hemorrhage or exudate. CHEST: Lungs are clear to auscultation bilaterally and free of wheezes, rales, or rhonchi. Heart rate is regular rhythm, there are no murmurs, clicks, rubs, or gallops. There is no chest wall tenderness. ABD: Abdomen is soft and nontender. There is no guarding or rebound. Bowel sounds are normal in all 4 quadrants. There is no mass or organomegaly. EXT: Dorsum of left foot is tender to palpate with warmth, redness and swelling an area about the size of a quarter overlying the metatarsophalangeal joint at the base of the 2nd toe on left foot. No induration, fluctuance, drainage or lymphangitisFull painless ROM of all extremities with no loss of sensation or strength. SKIN: Warm, pink, and dry. No erythema or rash Initial Vital Signs Initial Vital Signs: Vital Signs Temperature 97.6 F 02/26/21 22:07 Pulse Rate 83 02/26/21 22:07 Respiratory Rate 16 02/26/21 22:07 Blood Pressure 188/100 H 02/26/21 22:07 Pulse Oximetry 98 02/26/21 22:07 Course Orders Ordered: ED Orders 02/26/21 22:08 XR foot LT min 3V Stat Discontinued Medications Hydrocodone Bitart/Acetaminophen (Hydrocodone/Acet 5/325 Prepack) 1 bottle MISC SEEINSTR ONE Stop: 02/27/21 00:19 Last Admin: 02/27/21 00:26 Dose: 1 bottle Documented by: SHANNAN Cefazolin Sodium (Cephalexin 250 Mg Prepack) 1 bottle MISC SEEINSTR ONE Stop: 02/27/21 00:19 Last Admin: 02/27/21 00:26 Dose: 2 cap Documented by: SHANNAN MDM - Extremity Injury (Lower) Imaging Data Extremity x-ray #1: Radiologist's Impression: negative for fracture or dislocation MDM Narrative Medical decision making narrative: Multiple etiologies for patient's symptoms considered including: [ Gout but thought unlikely given location and lack of history. Orthopedic injury but thought unlikely given lack of a memorable injury with negative x-ray. Cellulitis considered most likely given pain, redness, swelling in absence of injury] Patient's symptoms improved over duration of stay with above-stated therapies. Findings and discharge diagnosis discussed with patient/family followed by verbalization of understanding Return precautions discussed with patient/family whom verbalize understanding. Discharge Plan Departure Patient Disposition: Home Clinical Impression: Cellulitis of foot Instructions: DI for Cellulitis -- Adult Activity Restrictions/Additional Instructions: *You have been diagnosed with [ Left foot cellulitis] *What to do: *Please continue to take your regular medications as directed. [x] New medication prescriptions sent to your pharmacy: [ [facility]] [ ] New medication written as a paper prescription [ ] No new medications given *Please follow up with your primary care provider in 2-3 days, call for an appointment. Let them know you were seen in the Emergency Department and that we ask that you be seen in follow up. We will electronically transmit a record of today's note if your PCP is in our system *If you do not have a primary care provider please contact the [facility] Resource line at [phone]. They will ask some questions about your medical history and help get you set up with a doctor in the community. *Return to Emergency Department if you should have any new, worsening or concerning symptoms, such as [fever greater than 101 F, shaking chills, worsening pain, persistent vomiting or other bothersome symptoms] Prescriptions: New cephalexin 500 mg capsule 500 mg PO Q6H 7 Days Qty: 28 RF: 0 No Action tiotropium bromide [Spiriva with HandiHaler] 18 MCG capsule, w/inhalation device 1 puff INH DAILY Qty: 0 RF: 0 aspirin 81 MG tablet,delayed release (DR/EC) 81 mg PO QDAY Qty: 0 RF: 0 lisinopril 40 mg Tablet 40 mg PO DAILY RF: 0 atorvastatin [Lipitor] 20 mg Tablet 40 mg PO BEDTIME Qty: 180 RF: 0 prednisone 10 mg tablet 1 dose PO DIRECTED RF: 0 levothyroxine 75 mcg tablet 75 mcg PO DAILY RF: 0 albuterol sulfate [Ventolin HFA] 90 mcg/actuation HFA aerosol inhaler 2 puff Inhalation Q4H PRN (Reason: Shortness Of Breath) RF: 0 triamterene-hydrochlorothiazid 37.5-25 mg tablet 1 tab PO DAILY RF: 0 fluticasone propion-salmeterol [Advair Diskus] 250-50 mcg/dose Blister With Device 1 inh INHALATION BID RF: 0 ipratropium bromide [Atrovent HFA] 17 mcg/actuation Hfa Aerosol Inhaler 2 puff Inhalation QID RF: 0 omega 4-bdw-wxs-fish oil [Fish Oil] 1,000 mg (120 mg-180 mg) Capsule 1,000 mg PO DAILY RF: 0 nitroglycerin [Nitrostat] 0.4 mg Tablet, Sublingual 0.4 mg SUBLINGUAL Q5-15M PRN (Reason: Chest Pain) RF: 0 fluticasone propionate [Flonase Allergy Relief] 50 mcg/actuation [place],Suspension 1 spray Intranasal BID PRN (Reason: Allergy Symptoms) RF: 0 vitamin E 400 unit Capsule 400 unit PO DAILY RF: 0 multivitamin Tablet,Chewable 1 tab PO DAILY RF: 0 ipratropium-albuterol 0.5 mg-3 mg(2.5 mg base)/3 mL solution for nebulization 3 ml INHALATION Q6-8H PRN (Reason: shortness of breath or wheezing) Qty: 90 RF: 0 prednisone 20 mg tablet 20 mg PO DAILY Qty: 5 RF: 0 furosemide [Lasix] 20 mg tablet 20 mg PO DAILY Qty: 5 RF: 0 furosemide [Lasix] 20 mg tablet 20 mg PO BID Qty: 6 RF: 0 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 10 mg tablet 10 mg PO TID PRN (Reason: muscle spasm) Qty: 10 RF: 0 prednisone 20 mg tablet 20 mg PO DAILY Qty: 5 RF: 0 Referrals: Allie Fleming MD [Primary Care Provider] -
== END 2021-02-27 00:33 | disposition home or self-care (01) ==
PROVIDERS: Emergency Provider Emergency Medicine; Family Provider Internal Medicine; PCP Internal Medicine
DX: L03.116 Cellulitis of left lower limb (principal)
CPT/HCPCS: 73630; 99283

== ENCOUNTER 2021-04-16 08:33 | Emergency (ER) | payer MEDICARE, SELFPAY ==
[2018-04-17 15:43] VITALS: BMI 20.8
[2021-04-16] VITALS (10 sets, daily range): BP systolic 120–196; BP diastolic 83–91; PULSE 67–80; RESP 14–31; TEMP 36.6; O2SAT 91–98; BMI 25.4
--- NOTE | 2021-04-16 08:35 | DI.RAD.S_ITS ---
PROCEDURE: XR CHEST 1V INDICATIONS: chest pain TECHNIQUE: One view of the chest was acquired. COMPARISON: [facility], CR, XR CHEST 2V, 05/28/2020, 14:37. FINDINGS: Surgical changes and devices: Median sternotomy wires are seen. Lungs and pleura: Chronic emphysematous changes are seen. No focal infiltrate. No pleural effusions or pneumothorax. Mediastinum: Tortuous thoracic aorta is seen with aortic arch calcifications. Heart size is enlarged. Bones and chest wall: No suspicious bony lesions. Overlying soft tissues appear unremarkable. IMPRESSION: COPD. Cardiomegaly. No focal infiltrate, pleural effusion or pneumothorax. Dictated by: Ronaldo Santana M.D. on 04/16/2021 at 9:12 Approved by: Ronaldo Santana M.D. on 04/16/2021 at 9:13
--- NOTE | 2021-04-16 08:43 | ED_ITS ---
HPI - General Adult General Chief complaint: Chest Pain Stated complaint: chest pains Time Seen by Provider: 04/16/21 08:35 Source: patient Mode of arrival: Ambulatory History of Present Illness HPI narrative: Patient is an 85-year-old female. Known history of coronary artery disease. Has had heart attacks in the past and also bypass surgery. Also has a history of COPD. Is on oxygen at home at night. No diagnosis of heart failure although she is on a water pill and sometimes gets lower extremity swelling. States that over the past couple weeks she has had off and on heaviness in her chest. She states that today she woke up with a heaviness in her chest. She did a nebulizer treatment which she states did not help her symptoms all that much. Within the past 24 hours she did take a dose of prednisone which she had at home and she thought maybe this did improve her symptoms somewhat. No coughing. No fevers. No abdominal pain. No nausea vomiting. No constipation or diarrhea. No skin rashes. Related Data Home Medications Medication Instructions Recorded Confirmed tiotropium bromide 18 mcg capsule 1 puff INH DAILY #0 04/28/17 08/22/18 with inhalation device (Spiriva with HandiHaler) aspirin 81 mg tablet,delayed 81 mg PO QDAY #0 07/11/17 08/22/18 release lisinopril 40 mg tablet 40 mg PO DAILY 04/19/18 08/22/18 albuterol sulfate 90 mcg/actuation 2 puff INHALATION Q4H PRN 07/07/18 08/22/18 aerosol inhaler fluticasone 250 mcg-salmeterol 50 1 inh INHALATION BID 07/07/18 08/22/18 mcg/dose blistr powdr for inhalation (Advair Diskus) fluticasone propionate 50 1 spray INTRANASAL BID PRN 07/07/18 08/22/18 mcg/actuation nasal spray,suspension (Flonase Allergy Relief) ipratropium bromide 17 2 puff INHALATION QID 07/07/18 08/22/18 mcg/actuation HFA aerosol inhaler (Atrovent HFA) levothyroxine 75 mcg tablet 75 mcg PO DAILY 07/07/18 08/22/18 multivitamin 1 tab PO DAILY 07/07/18 08/22/18 nitroglycerin 0.4 mg sublingual 0.4 mg SUBLINGUAL Q5-15M PRN 07/07/18 08/22/18 tablet (Nitrostat) omega 6-vxm-pek-fish oil 1,000 mg 1,000 mg PO DAILY 07/07/18 08/22/18 (120 mg-180 mg) capsule (Fish Oil) prednisone 10 mg tablet 1 dose PO DIRECTED 07/07/18 08/22/18 triamterene 37.5 1 tab PO DAILY 07/07/18 08/22/18 mg-hydrochlorothiazide 25 mg tablet vitamin E 400 unit capsule 400 unit PO DAILY 07/07/18 08/22/18 Previous Rx's Medication Instructions Recorded atorvastatin 20 mg tablet (Lipitor) 40 mg PO BEDTIME #180 tab 04/20/18 ipratropium 0.5 mg-albuterol 3 mg 3 ml INHALATION Q6-8H PRN #90 ml 11/04/18 (2.5 mg base)/3 mL nebulization soln prednisone 20 mg tablet 20 mg PO DAILY #5 tab 11/04/18 furosemide 20 mg tablet (Lasix) 20 mg PO BID #6 tab 01/16/19 furosemide 20 mg tablet (Lasix) 20 mg PO DAILY #5 tab 01/16/19 prednisone 20 mg tablet 20 mg PO DAILY #5 tab 09/16/19 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 10 mg tablet 10 mg PO TID PRN #10 tab 01/21/21 prednisone 20 mg tablet 20 mg PO DAILY #20 tab 04/16/21 Allergies Allergy/AdvReac Type Severity Reaction Status Date / Time acarbose Allergy Intermediate Abdominal Verified 01/27/19 21:35 Pain amlodipine Allergy Intermediate Verified 01/27/19 21:35 chlorthalidone Allergy Intermediate Redness of Verified 01/27/19 21:35 Skin doxazosin [From Cardura] Allergy Intermediate Rash Verified 01/27/19 21:35 doxycycline Allergy Intermediate Rash Verified 01/27/19 21:35 gemfibrozil Allergy Intermediate Rash Verified 01/27/19 21:35 levofloxacin Allergy Intermediate Rash Verified 01/27/19 21:35 losartan Allergy Intermediate Rash Verified 01/27/19 21:35 metoprolol Allergy Intermediate Verified 01/27/19 21:35 montelukast [From Singulair] Allergy Intermediate Difficulty Verified 01/27/19 21:35 Breathing nifedipine Allergy Intermediate Chills Verified 01/27/19 21:35 Sulfa (Sulfonamide Allergy Intermediate rash Verified 01/27/19 21:35 Antibiotics) sulfamethoxazole Allergy Intermediate Rash Verified 01/27/19 21:35 [From Bactrim] trimethoprim [From Bactrim] Allergy Intermediate Rash Verified 01/27/19 21:35 budesonide [From Symbicort] Allergy Mild Anxiety Verified 01/27/19 21:35 carvedilol Allergy Mild Rash Verified 01/27/19 21:35 choline fenofibrate Allergy Mild Gastrointestinal Verified 01/27/19 21:35 [From Trilipix] Upset formoterol [From Symbicort] Allergy Mild Anxiety Verified 01/27/19 21:35 Review of Systems Constitutional Constitutional: Reports as per HPI Eyes Eyes: Reports system reviewed and no additional complaints, except as documented ENT Ears, Nose, Mouth, and Throat: Reports system reviewed and no additional complaints, except as documented Cardiovascular Cardiovascular: Reports as per HPI Respiratory Respiratory: Reports as per HPI Gastrointestinal Gastrointestinal: Reports as per HPI Genitourinary Genitourinary: Reports as per HPI Musculoskeletal Musculoskeletal: Reports system reviewed and no additional complaints, except as documented Integumentary/Breasts Skin/Breast: Reports system reviewed and no additional complaints, except as documented Neurologic Neurologic: Reports system reviewed and no additional complaints, except as documented Endocrine Endocrine: Reports system reviewed and no additional complaints, except as documented Hematologic/Lymphatic On Anticoagulants: No Allergic/Immunologic Allergic/Immunologic: Reports system reviewed and no additional complaints, except as documented Patient History Medical History (Updated 04/16/21 @ 12:15 by Jean Ta DO) Aneurysm of infrarenal abdominal aorta Bilateral carpal tunnel syndrome CAD (coronary artery disease) COPD (chronic obstructive pulmonary disease) with emphysema Elevated TSH HTN (hypertension) Hyperlipidemia Unstable angina Valvular heart disease Surgical History H/O hysterectomy with oophorectomy H/O three vessel coronary artery bypass Hx of heart artery stent Status post cholecystectomy Social History household members: children Smoking Status: Former smoker alcohol intake: never Smoking Status: Former smoker alcohol intake frequency: 0-2 drinks per day Substance Use Type: does not use Exam Initial Vital Signs Initial Vital Signs: Vital Signs Temperature 97.9 F 04/16/21 08:55 Pulse Rate 70 04/16/21 08:55 Respiratory Rate 20 04/16/21 08:55 Blood Pressure 120/89 04/16/21 08:55 Pulse Oximetry 98 04/16/21 08:55 Const General: cooperative and comfortable HENMT Head: normal to inspection and normocephalic Eyes General: appearance normal, both eyes and all related structures Chest Chest: No tenderness Resp Effort & Inspection: normal respiratory effort and not labored Auscultation: clear to auscultation bilaterally Cardio Rate: regular rate Rhythm: regular rhythm GI Inspection: normal to inspection Skin General: no rashes or lesions noted Neuro General: patient alert, patient awake, patient oriented x3 and moves all e xtremities Extrem General: normal to inspection and No edema Psych Appearance: grossly normal Scores GCS [place] coma scale eye opening: Spontaneous [place] coma scale verbal response: Orientated [place] coma scale motor response: Obey commands Luh coma scale total score: 15 Course Orders Ordered: ED Orders 04/16/21 08:35 XR chest 1V Stat 04/16/21 08:41 EKG-12 Lead Stat 04/16/21 08:50 Complete Blood Count AUTO DIFF Stat Comprehensive Metabolic Panel Stat Lipase Stat NT-proBNP (BNP-Adult 18+) Stat Troponin & CK Cardiac Panel Stat 04/16/21 09:05 COVID19 -Nasal swab/Pre-Proc Stat 04/16/21 10:50 Troponin & CK Cardiac Panel Stat Discontinued Medications Albuterol/Ipratropium (Albuterol/Ipratropium 3 Ml Ampul) 3 ml INH NOW ONE Stop: 04/16/21 09:36 Last Admin: 04/16/21 09:42 Dose: 3 ml Documented by: FRANCO Methylprednisolone (Methylprednisolone 125 Mg/2 Ml Vial) 125 mg IV NOW ONE Stop: 04/16/21 09:36 Last Admin: 04/16/21 09:42 Dose: 125 mg Documented by: FRANCO Vital Signs Vital signs: Vital Signs - 8 hr 04/16/21 08:55 04/16/21 09:33 04/16/21 09:46 Temperature 97.9 F Pulse Rate 70 77 74 Respiratory Rate 20 28 H 14 Blood Pressure 120/89 Pulse Oximetry 98 95 95 04/16/21 09:48 04/16/21 10:00 04/16/21 10:30 Temperature Pulse Rate 70 67 73 Respiratory Rate 28 H 24 18 Blood Pressure 196/83 H 195/91 H 192/84 H Pulse Oximetry 96 95 93 04/16/21 11:00 04/16/21 11:30 Temperature Pulse Rate 80 70 Respiratory Rate 31 H 19 Blood Pressure Pulse Oximetry 93 94 Medical Decision Making Medical Records Medical records reviewed: Yes I reviewed the patient's medical records. Lab Data Lab results reviewed: Yes I reviewed the patient's lab results. Result diagrams: 04/16/21 08:50 04/16/21 08:50 Labs: Lab Results 04/16/21 04/16/21 04/16/21 Range/Units 08:50 08:50 09:05 WBC 5.8 (4.5-11.0) X10^3/uL RBC 5.24 H (4.0-5.2) X10^6/uL Hgb 14.7 (12.0-16.0) g/dL Hct 45.4 (36-46) % MCV 86.6 (80-100) fL MCH 28.1 (26-34) PG MCHC 32.4 (30-36) % RDW 15.3 H (11.6-14.8) % Plt Count 204 (150-400) X10^3/uL Neut % (Auto) 65.5 (50-75) % Lymph % (Auto) 21.9 L (25-40) % [place] % (Auto) 7.5 (3-14) % Eos % (Auto) 4.5 H (2-4) % Baso % (Auto) 0.6 (0-2) % Neut # (Auto) 3800 (9995-8762) /uL Lymph # (Auto) 1300 (5809-3784) /uL [place] # (Auto) 400 (0-900) /uL Eos # (Auto) 300 (0-450) /uL Baso # (Auto) 0 (0-100) /uL Sodium 138 (137-145) mmol/L Potassium 4.4 (3.4-5.1) mmol/L Chloride 106 (98-107) mmol/L Carbon Dioxide 31 (22-32) mmol/L BUN 19 H (7-17) mg/dL Creatinine 0.87 (0.52-1.04) mg/dL Estimated GFR > 60.0 (>60) mL/min BUN/Creatinine Ratio 21.8 (6-22) Glucose 105 (80-110) mg/dL Calcium 10.3 H (8.4-10.2) mg/dL Total Bilirubin 0.8 (0.2-1.3) mg/dL AST 33 (14-36) IU/L ALT 19 (<35) IU/L Alkaline Phosphatase 67 (38-126) U/L Total Creatine Kinase 42 (30-135) U/L CK-MB (CK-2) TNP CK-MB (CK-2) Rel Index TNP Troponin I 0.017 (0.01-0.034) ng/mL NT-Pro-B Natriuret Pep 3100 H (<450) pg/mL Total Protein 6.9 (6.3-8.2) g/dL Albumin 3.9 (3.5-5.0) g/dL Globulin 3.0 (1.7-4.1) g/dL Albumin/Globulin Ratio 1.3 (1.0-2.8) Lipase 64 (23-300) U/L SARS-CoV-2 (PCR) Negative (Negative) 04/16/21 Range/Units 10:50 WBC (4.5-11.0) X10^3/uL RBC (4.0-5.2) X10^6/uL Hgb (12.0-16.0) g/dL Hct (36-46) % MCV (80-100) fL MCH (26-34) PG MCHC (30-36) % RDW (11.6-14.8) % Plt Count (150-400) X10^3/uL Neut % (Auto) (50-75) % Lymph % (Auto) (25-40) % [place] % (Auto) (3-14) % Eos % (Auto) (2-4) % Baso % (Auto) (0-2) % Neut # (Auto) (7562-2228) /uL Lymph # (Auto) (5310-3340) /uL [place] # (Auto) (0-900) /uL Eos # (Auto) (0-450) /uL Baso # (Auto) (0-100) /uL Sodium (137-145) mmol/L Potassium (3.4-5.1) mmol/L Chloride (98-107) mmol/L Carbon Dioxide (22-32) mmol/L BUN (7-17) mg/dL Creatinine (0.52-1.04) mg/dL Estimated GFR (>60) mL/min BUN/Creatinine Ratio (6-22) Glucose (80-110) mg/dL Calcium (8.4-10.2) mg/dL Total Bilirubin (0.2-1.3) mg/dL AST (14-36) IU/L ALT (<35) IU/L Alkaline Phosphatase (38-126) U/L Total Creatine Kinase 37 (30-135) U/L CK-MB (CK-2) TNP CK-MB (CK-2) Rel Index TNP Troponin I 0.015 (0.01-0.034) ng/mL NT-Pro-B Natriuret Pep (<450) pg/mL Total Protein (6.3-8.2) g/dL Albumin (3.5-5.0) g/dL Globulin (1.7-4.1) g/dL Albumin/Globulin Ratio (1.0-2.8) Lipase (23-300) U/L SARS-CoV-2 (PCR) (Negative) Imaging Data Chest x-ray: Radiologist's Impression: [address] [id number] ReportSigned Patient: Lindsay Aguilar AMR#: [id number]: 1935cct:[id number]/Sex: 85 / FDate of Service: 04/16/21Loc: EDAccession Number: [id number] Procedure: XR chest 1V Ordering Provider: Jean Ta D.O. PROCEDURE: XR CHEST 1V INDICATIONS: chest pain TECHNIQUE: One view of the chest was acquired. COMPARISON: [facility], , XR CHEST 2V, 05/28/2020, 14:37. FINDINGS: Surgical changes and devices: Median sternotomy wires are seen. Lungs and pleura: Chronic emphysematous changes are seen. No focal infiltrate. No pleural effusions or pneumothorax. Mediastinum: Tortuous thoracic aorta is seen with aortic arch calcifications. Heart size is enlarged. Bones and chest wall: No suspicious bony lesions. Overlying soft tissues negar ear unremarkable. IMPRESSION: COPD. Cardiomegaly. No focal infiltrate, pleural effusion or pne umothorax. Dictated by: Ronaldo Santana M.D. on 04/16/2021 at 9:12 Approved by: Ronaldo Santana M.D. on 04/16/2021 at 9:13 ECG Data Attestation: I personally reviewed and interpreted this ECG as follows: Prior ECG tracings: available for review Interpretation: Sinus rhythm Ventricular rate is 70 to Normal axis Right bundle branch block Normal QRS Normal QTC Inverted T-waves V1 V2 V3 V4 V5 Unchanged from EKG dated the end of last year. MDM Narrative Medical decision making narrative: Troponins negative x2. Chest x-ray shows COPD but no signs of pneumonia. EKG is unchanged from 1 several months ago. After the steroids and a nebulizer treatment here in the emergency department she states that her symptoms have resolved. Low suspicion for pneumonia. No indication for antibiotics. I do suspect that her symptoms today are COPD and not ACS given her response to the treatment. Will send her home with steroids. She was given return precautions and follow-up instructions. She expressed und erstanding and agreement. Discharge Plan Departure Patient Disposition: Home Clinical Impression: COPD exacerbation Instructions: DI for Chronic Obstructive Pulmonary Disease Activity Restrictions/Additional Instructions: Recommend that you take the steroids as directed. Contact your primary doctor for a follow-up. Return to the emergency department for any new or worsening symptoms Prescriptions: New prednisone 20 mg tablet 20 mg PO DAILY Qty: 20 RF: 0 No Action tiotropium bromide [Spiriva with HandiHaler] 18 MCG capsule, w/inhalation device 1 puff INH DAILY Qty: 0 RF: 0 aspirin 81 MG tablet,delayed release (DR/EC) 81 mg PO QDAY Qty: 0 RF: 0 lisinopril 40 mg Tablet 40 mg PO DAILY RF: 0 atorvastatin [Lipitor] 20 mg Tablet 40 mg PO BEDTIME Qty: 180 RF: 0 prednisone 10 mg tablet 1 dose PO DIRECTED RF: 0 levothyroxine 75 mcg tablet 75 mcg PO DAILY RF: 0 albuterol sulfate [Ventolin HFA] 90 mcg/actuation HFA aerosol inhaler 2 puff Inhalation Q4H PRN (Reason: Shortness Of Breath) RF: 0 triamterene-hydrochlorothiazid 37.5-25 mg tablet 1 tab PO DAILY RF: 0 fluticasone propion-salmeterol [Advair Diskus] 250-50 mcg/dose Blister With Device 1 inh INHALATION BID RF: 0 ipratropium bromide [Atrovent HFA] 17 mcg/actuation Hfa Aerosol Inhaler 2 puff Inhalation QID RF: 0 omega 7-rqu-dxt-fish oil [Fish Oil] 1,000 mg (120 mg-180 mg) Capsule 1,000 mg PO DAILY RF: 0 nitroglycerin [Nitrostat] 0.4 mg Tablet, Sublingual 0.4 mg SUBLINGUAL Q5-15M PRN (Reason: Chest Pain) RF: 0 fluticasone propionate [Flonase Allergy Relief] 50 mcg/actuation [place],Suspension 1 spray Intranasal BID PRN (Reason: Allergy Symptoms) RF: 0 vitamin E 400 unit Capsule 400 unit PO DAILY RF: 0 multivitamin Tablet,Chewable 1 tab PO DAILY RF: 0 ipratropium-albuterol 0.5 mg-3 mg(2.5 mg base)/3 mL solution for nebulization 3 ml INHALATION Q6-8H PRN (Reason: shortness of breath or wheezing) Qty: 90 RF: 0 prednisone 20 mg tablet 20 mg PO DAILY Qty: 5 RF: 0 furosemide [Lasix] 20 mg tablet 20 mg PO DAILY Qty: 5 RF: 0 furosemide [Lasix] 20 mg tablet 20 mg PO BID Qty: 6 RF: 0 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 10 mg tablet 10 mg PO TID PRN (Reason: muscle spasm) Qty: 10 RF: 0 prednisone 20 mg tablet 20 mg PO DAILY Qty: 5 RF: 0 Referrals: Allie Fleming MD [Primary Care Provider] -
[2021-04-16 09:00] LABS: Add Manual Diff / Slide Review NO; Basophils Absolute Auto 0 /uL (0-100); Basophils Percent Auto 0.6 % (0-2); Eosinophils Absolute Auto 300 /uL (0-450); Eosinophils Percent Auto 4.5 % (2-4); Hematocrit 45.4 % (36-46); Hemoglobin 14.7 g/dL (12.0-16.0); Lymphocytes Absolute Auto 1300 /uL (1100-4500); Lymphocytes Percent Auto 21.9 % (25-40); Mean Corpuscular HGB Conc 32.4 % (30-36); Mean Corpuscular Hemoglobin 28.1 PG (26-34); Mean Corpuscular Volume 86.6 fL (80-100); Monocytes Absolute Auto 400 /uL (0-900); Monocytes Percent Auto 7.5 % (3-14); Neutrophils Absolute Auto 3800 /uL (1500-7000); Neutrophils Percent Auto 65.5 % (50-75); Platelet Count 204 X10^3/uL (150-400); Red Blood Cell Count 5.24 X10^6/uL (4.0-5.2); Red Cell Distribution Width 15.3 % (11.6-14.8); White Blood Cell Count 5.8 X10^3/uL (4.5-11.0)
[2021-04-16 09:12] LABS: Alanine Aminotransferase 19 IU/L (<35); Albumin 3.9 g/dL (3.5-5.0); Albumin Globulin Ratio 1.3 (1.0-2.8); Alkaline Phosphatase 67 U/L (38-126); Aspartate Aminotransferase 33 IU/L (14-36); BUN Creatinine Ratio 21.8 (6-22); Bilirubin Total 0.8 mg/dL (0.2-1.3); Blood Urea Nitrogen 19 mg/dL (7-17); Calcium 10.3 mg/dL (8.4-10.2); Carbon Dioxide 31 mmol/L (22-32); Chloride 106 mmol/L (98-107); Creatine Kinase 42 U/L (30-135); Estimated Glomerular Filt Rate > 60.0 mL/min (>60); Glucose 105 mg/dL (80-110); HEMOLYSIS < 15 (0-50); Lipase 64 U/L (23-300); Potassium 4.4 mmol/L (3.4-5.1); Sodium 138 mmol/L (137-145); Total Protein 6.9 g/dL (6.3-8.2)
[2021-04-16 09:21] LABS: COVID19 -Nasal RAPID Negative (Negative)
[2021-04-16 09:24] LABS: NT-proBNP (BNP-Adult 18+) 3100 pg/mL (<450); Troponin I 0.017 ng/mL (0.01-0.034)
[2021-04-16] MEDS: methylPREDNISolone 125 MG/2 ML VIAL IV (09:42)
[2021-04-16] MEDS: ALBUTEROL/IPRATROPIUM 3 ML AMPUL INH (09:42)
[2021-04-16 11:21] LABS: Creatine Kinase 37 U/L (30-135)
[2021-04-16 11:33] LABS: Troponin I 0.015 ng/mL (0.01-0.034)
== END 2021-04-16 12:53 | disposition home or self-care (01) ==
PROVIDERS: Emergency Provider Emergency Medicine; Family Provider Internal Medicine; PCP Internal Medicine
DX: J44.1 Chronic obstructive pulmonary disease with (acute) exacerbation (principal); Z20.822 Contact with and (suspected) exposure to COVID-19; I25.2 Old myocardial infarction
CPT/HCPCS: 36415; 71045; 80053; 82550; 83690; 83880; 84484; 85025; 87635; 93005; 93010; 94640; 96374; 99284; C9803; J2930

== ENCOUNTER 2021-06-30 13:07 | Emergency (ER) | payer MEDICARE, SELFPAY ==
[2018-04-17 15:43] VITALS: BMI 20.8
[2021-06-30] VITALS (12 sets, daily range): BP systolic 158–196; BP diastolic 73–138; PULSE 79–88; RESP 20–37; TEMP 36.6–36.8; O2SAT 92–96; BMI 25.4
--- NOTE | 2021-06-30 13:26 | DI.RAD.S_ITS ---
PROCEDURE: XR CHEST 1V INDICATIONS: chest pain TECHNIQUE: One view of the chest was acquired. COMPARISON: [facility], CR, XR CHEST 1V, 04/16/2021, 8:57. FINDINGS: Surgical changes and devices: Median sternotomy wires are present and appear intact. Lungs and pleura: Mild diffuse interstitial prominence. No substantial pleural effusion. No pneumothorax. No focal consolidation. Mediastinum: The cardiomediastinal contours remain stable. Atherosclerotic calcifications of the aortic arch are present. Mild cardiomegaly unchanged. Bones and chest wall: No suspicious bony lesions. Overlying soft tissues appear unremarkable. IMPRESSION: 1. Cardiomegaly with mild diffuse interstitial prominence. This may represent early developing pulmonary edema/CHF; however, an infectious or inflammatory process not excluded if clinically appropriate. No focal consolidation. Dictated by: Garrett Dan M.D. on 06/30/2021 at 13:51 Approved by: Garrett Dan M.D. on 06/30/2021 at 13:52
[2021-06-30 13:31] LABS: Add Manual Diff / Slide Review NO; Basophils Absolute Auto 100 /uL (0-100); Basophils Percent Auto 1.2 % (0-2); Eosinophils Absolute Auto 200 /uL (0-450); Eosinophils Percent Auto 2.1 % (2-4); Hematocrit 45.7 % (36-46); Hemoglobin 15.3 g/dL (12.0-16.0); Lymphocytes Absolute Auto 1400 /uL (1100-4500); Lymphocytes Percent Auto 14.1 % (25-40); Mean Corpuscular HGB Conc 33.5 % (30-36); Mean Corpuscular Hemoglobin 28.7 PG (26-34); Mean Corpuscular Volume 85.5 fL (80-100); Monocytes Absolute Auto 600 /uL (0-900); Monocytes Percent Auto 5.4 % (3-14); Neutrophils Absolute Auto 7900 /uL (1500-7000); Neutrophils Percent Auto 77.2 % (50-75); Platelet Count 204 X10^3/uL (150-400); Red Blood Cell Count 5.34 X10^6/uL (4.0-5.2); Red Cell Distribution Width 14.7 % (11.6-14.8); White Blood Cell Count 10.2 X10^3/uL (4.5-11.0)
[2021-06-30 13:42] LABS: Alanine Aminotransferase 20 IU/L (<35); Albumin 4.2 g/dL (3.5-5.0); Albumin Globulin Ratio 1.5 (1.0-2.8); Alkaline Phosphatase 59 U/L (38-126); Aspartate Aminotransferase 29 IU/L (14-36); BUN Creatinine Ratio 23.9 (6-22); Bilirubin Total 1.1 mg/dL (0.2-1.3); Blood Urea Nitrogen 21 mg/dL (7-17); Calcium 10.1 mg/dL (8.4-10.2); Carbon Dioxide 29 mmol/L (22-32); Chloride 103 mmol/L (98-107); Creatine Kinase 34 U/L (30-135); Estimated Glomerular Filt Rate > 60.0 mL/min (>60); Globulin 2.8 g/dL (1.7-4.1); Glucose 119 mg/dL (80-110); HEMOLYSIS 50 (0-50); Lipase 73 U/L (23-300); Magnesium 1.8 mg/dL (1.6-2.3); Potassium 3.4 mmol/L (3.4-5.1); Sodium 140 mmol/L (137-145)
[2021-06-30 13:44] LABS: COVID19 -Nasal RAPID Negative (Negative)
--- NOTE | 2021-06-30 13:53 | ED.CHESTPAIN ---
HPI - Chest Pain General Chief Complaint: Chest Pain Stated Complaint: Heaviness in chest, clogged ears Time Seen by Provider: 06/30/21 13:16 Source: patient Mode of arrival: Ambulatory Limitations: no limitations History of Present Illness HPI narrative: The patient is a 85-year-old female history of COPD, coronary artery disease, congestive heart failure, AAA, presenting today with sudden onset left-sided chest pain. She says she was sitting when she suddenly felt some left-sided pain just under her left breast. She stood up it intensified it lasted briefly for 2nd she sat back down. She now says that she feels her normal generalized heaviness. She says this is the having a she always feels because of her COPD. She denies any shortness of breath. No cough or fever. She has absolutely no abdominal pain nausea vomiting. Her abdominal aortic aneurysm is being monitored at [facility] it was 1st seen here in December, she says she has follow-up imaging for August. She denies any fever chills shortness of breath. She is currently sleeping but easily arousable in the emergency department. Related Data Home Medications Medication Instructions Recorded Confirmed tiotropium bromide 18 mcg capsule 1 puff INH DAILY #0 04/28/17 08/22/18 with inhalation device (Spiriva with HandiHaler) aspirin 81 mg tablet,delayed 81 mg PO QDAY #0 07/11/17 08/22/18 release lisinopril 40 mg tablet 40 mg PO DAILY 04/19/18 08/22/18 albuterol sulfate 90 mcg/actuation 2 puff INHALATION Q4H PRN 07/07/18 08/22/18 aerosol inhaler fluticasone 250 mcg-salmeterol 50 1 inh INHALATION BID 07/07/18 08/22/18 mcg/dose blistr powdr for inhalation (Advair Diskus) fluticasone propionate 50 1 spray INTRANASAL BID PRN 07/07/18 08/22/18 mcg/actuation nasal spray,suspension (Flonase Allergy Relief) ipratropium bromide 17 2 puff INHALATION QID 07/07/18 08/22/18 mcg/actuation HFA aerosol inhaler (Atrovent HFA) levothyroxine 75 mcg tablet 75 mcg PO DAILY 07/07/18 08/22/18 multivitamin 1 tab PO DAILY 07/07/18 08/22/18 nitroglycerin 0.4 mg sublingual 0.4 mg SUBLINGUAL Q5-15M PRN 07/07/18 08/22/18 tablet (Nitrostat) omega 9-xxj-gly-fish oil 1,000 mg 1,000 mg PO DAILY 07/07/18 08/22/18 (120 mg-180 mg) capsule (Fish Oil) prednisone 10 mg tablet 1 dose PO DIRECTED 07/07/18 08/22/18 triamterene 37.5 1 tab PO DAILY 07/07/18 08/22/18 mg-hydrochlorothiazide 25 mg tablet vitamin E 400 unit capsule 400 unit PO DAILY 07/07/18 08/22/18 Previous Rx's Medication Instructions Recorded atorvastatin 20 mg tablet (Lipitor) 40 mg PO BEDTIME #180 tab 04/20/18 ipratropium 0.5 mg-albuterol 3 mg 3 ml INHALATION Q6-8H PRN #90 ml 11/04/18 (2.5 mg base)/3 mL nebulization soln prednisone 20 mg tablet 20 mg PO DAILY #5 tab 11/04/18 furosemide 20 mg tablet (Lasix) 20 mg PO BID #6 tab 01/16/19 furosemide 20 mg tablet (Lasix) 20 mg PO DAILY #5 tab 01/16/19 prednisone 20 mg tablet 20 mg PO DAILY #5 tab 09/16/19 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 10 mg tablet 10 mg PO TID PRN #10 tab 01/21/21 prednisone 20 mg tablet 20 mg PO DAILY #20 tab 04/16/21 Allergies Allergy/AdvReac Type Severity Reaction Status Date / Time acarbose Allergy Intermediate Abdominal Verified 06/30/21 13:22 Pain amlodipine Allergy Intermediate Verified 06/30/21 13:22 chlorthalidone Allergy Intermediate Redness of Verified 06/30/21 13:22 Skin doxazosin [From Cardura] Allergy Intermediate Rash Verified 06/30/21 13:22 doxycycline Allergy Intermediate Rash Verified 06/30/21 13:22 gemfibrozil Allergy Intermediate Rash Verified 06/30/21 13:22 levofloxacin Allergy Intermediate Rash Verified 06/30/21 13:22 losartan Allergy Intermediate Rash Verified 06/30/21 13:22 metoprolol Allergy Intermediate Verified 06/30/21 13:22 montelukast [From Singulair] Allergy Intermediate Difficulty Verified 06/30/21 13:22 Breathing nifedipine Allergy Intermediate Chills Verified 06/30/21 13:22 Sulfa (Sulfonamide Allergy Intermediate rash Verified 06/30/21 13:22 Antibiotics) sulfamethoxazole Allergy Intermediate Rash Verified 06/30/21 13:22 [From Bactrim] trimethoprim [From Bactrim] Allergy Intermediate Rash Verified 06/30/21 13:22 budesonide [From Symbicort] Allergy Mild Anxiety Verified 06/30/21 13:22 carvedilol Allergy Mild Rash Verified 06/30/21 13:22 choline fenofibrate Allergy Mild Gastrointestinal Verified 06/30/21 13:22 [From Trilipix] Upset formoterol [From Symbicort] Allergy Mild Anxiety Verified 06/30/21 13:22 Review of Systems Review of Systems Narrative: GENERAL: Denies chills, fatigue, malaise, fever, sweats, travel HEENT: Denies sinus pain, ear pain, sore throat, difficulty swallowing, neck pain RESPIRATORY: Denies dyspnea, cough, wheezing, hemoptysis, sputum. CARDIOVASCULAR: See HPI GASTROINTESTINAL: Denies nausea, vomiting, abdominal pain, diarrhea, constipation, melena. : Denies dysuria, frequency, incontinence, hematuria, urinary retention, flank pain. MUSCULOSKELETAL: Denies weakness, joint pain, or bony pain SKIN: No rash, no erythema, no pruritus NEUROLOGIC: Denies weakness, dizziness, headache, numbness, change in speech, confusion PSYCHIATRIC: No concerning psychosocial issues. 12 point review of systems is negative except for those stated above and HPI Patient History Medical History (Updated 06/30/21 @ 16:32 by Rima Morris DO) Aneurysm of infrarenal abdominal aorta Bilateral carpal tunnel syndrome CAD (coronary artery disease) COPD (chronic obstructive pulmonary disease) with emphysema Elevated TSH HTN (hypertension) Hyperlipidemia Unstable angina Valvular heart disease Surgical History H/O hysterectomy with oophorectomy H/O three vessel coronary artery bypass Hx of heart artery stent Status post cholecystectomy Social History household members: children Smoking Status: Former smoker alcohol intake: never Smoking Status: Former smoker alcohol intake frequency: 0-2 drinks per day Substance Use Type: does not use Exam Initial Vital Signs Initial Vital Signs: Vital Signs Temperature 98.2 F 06/30/21 13:22 Pulse Rate 88 06/30/21 13:22 Respiratory Rate 26 H 06/30/21 13:22 Blood Pressure 196/88 H 06/30/21 13:22 Pulse Oximetry 96 06/30/21 13:22 GENERAL: Sleeping easily arousable 85-year-old female in no acute distress. HEENT: Head atraumatic,EOMI, pupils reactive, face symmetric, moist mucous membranes CARDIOVASCULAR: Regular rate and rhythm without murmurs, rubs or gallops. RESPIRATORY: Breath sounds equal bilaterally, no wheezes rales or rhonchi. ABDOMEN: Soft, nontender. Normoactive bowel sounds all 4 quadrants. No guarding or rebound. No pulsatile mass EXTREMITIES: Normal range of motion, no clubbing or edema. Neurovascularly intact NEUROLOGICAL: Alert and oriented x4.Normal gait and speech. SKIN: Warm, dry, no laceration, no petechiae, no rashes or lesions. Course Orders Ordered: ED Orders 06/30/21 13:20 COVID19 -Nasal swab/Pre-Proc Stat Complete Blood Count AUTO DIFF Stat Comprehensive Metabolic Panel Stat Lipase Stat Magnesium Stat Troponin & CK Cardiac Panel Stat 06/30/21 13:26 XR chest 1V Stat EKG-12 Lead Stat 06/30/21 15:03 EKG-12 Lead Stat 06/30/21 15:28 Troponin I Stat Vital Signs Vital signs: Vital Signs - 8 hr 06/30/21 13:22 06/30/21 13:36 06/30/21 14:00 Temperature 98.2 F Pulse Rate 88 85 87 Respiratory Rate 26 H 30 H 37 H Blood Pressure 196/88 H 161/83 H 159/130 H Pulse Oximetry 96 94 95 06/30/21 14:30 06/30/21 15:00 06/30/21 15:39 Temperature Pulse Rate 81 85 84 Respiratory Rate 22 22 30 H Blood Pressure 167/123 H 192/76 H Pulse Oximetry 92 94 95 06/30/21 15:41 06/30/21 16:00 06/30/21 16:30 Temperature Pulse Rate 82 82 79 Respiratory Rate 28 H 27 H 20 Blood Pressure 180/80 H 158/87 H 170/73 H Pulse Oximetry 95 96 92 06/30/21 17:00 06/30/21 17:05 06/30/21 17:12 Temperature 98 F Pulse Rate 86 81 85 Respiratory Rate 31 H 28 H 20 Blood Pressure 175/138 H 168/74 H 168/74 H Pulse Oximetry 96 95 94 MDM - Chest Pain Lab Data Result diagrams: 06/30/21 13:20 06/30/21 13:20 Labs: Lab Results 06/30/21 06/30/21 06/30/21 Range/Units 13:20 13:20 13:20 WBC 10.2 (4.5-11.0) X10^3/uL RBC 5.34 H (4.0-5.2) X10^6/uL Hgb 15.3 (12.0-16.0) g/dL Hct 45.7 (36-46) % MCV 85.5 (80-100) fL MCH 28.7 (26-34) PG MCHC 33.5 (30-36) % RDW 14.7 (11.6-14.8) % Plt Count 204 (150-400) X10^3/uL Neut % (Auto) 77.2 H (50-75) % Lymph % (Auto) 14.1 L (25-40) % [place] % (Auto) 5.4 (3-14) % Eos % (Auto) 2.1 (2-4) % Baso % (Auto) 1.2 (0-2) % Neut # (Auto) 7900 H (4418-2278) /uL Lymph # (Auto) 1400 (3548-9074) /uL [place] # (Auto) 600 (0-900) /uL Eos # (Auto) 200 (0-450) /uL Baso # (Auto) 100 (0-100) /uL Sodium 140 (137-145) mmol/L Potassium 3.4 (3.4-5.1) mmol/L Chloride 103 (98-107) mmol/L Carbon Dioxide 29 (22-32) mmol/L BUN 21 H (7-17) mg/dL Creatinine 0.88 (0.52-1.04) mg/dL Estimated GFR > 60.0 (>60) mL/min BUN/Creatinine Ratio 23.9 H (6-22) Glucose 119 H (80-110) mg/dL Calcium 10.1 (8.4-10.2) mg/dL Magnesium 1.8 (1.6-2.3) mg/dL Total Bilirubin 1.1 (0.2-1.3) mg/dL AST 29 (14-36) IU/L ALT 20 (<35) IU/L Alkaline Phosphatase 59 (38-126) U/L Total Creatine Kinase 34 (30-135) U/L CK-MB (CK-2) TNP CK-MB (CK-2) Rel Index TNP Troponin I 0.036 H (0.01-0.034) ng/mL Total Protein 7.0 (6.3-8.2) g/dL Albumin 4.2 (3.5-5.0) g/dL Globulin 2.8 (1.7-4.1) g/dL Albumin/Globulin Ratio 1.5 (1.0-2.8) Lipase 73 (23-300) U/L SARS-CoV-2 (PCR) Negative (Negative) 06/30/21 Range/Units 15:28 WBC (4.5-11.0) X10^3/uL RBC (4.0-5.2) X10^6/uL Hgb (12.0-16.0) g/dL Hct (36-46) % MCV (80-100) fL MCH (26-34) PG MCHC (30-36) % RDW (11.6-14.8) % Plt Count (150-400) X10^3/uL Neut % (Auto) (50-75) % Lymph % (Auto) (25-40) % [place] % (Auto) (3-14) % Eos % (Auto) (2-4) % Baso % (Auto) (0-2) % Neut # (Auto) (9924-8931) /uL Lymph # (Auto) (7742-1378) /uL [place] # (Auto) (0-900) /uL Eos # (Auto) (0-450) /uL Baso # (Auto) (0-100) /uL Sodium (137-145) mmol/L Potassium (3.4-5.1) mmol/L Chloride (98-107) mmol/L Carbon Dioxide (22-32) mmol/L BUN (7-17) mg/dL Creatinine (0.52-1.04) mg/dL Estimated GFR (>60) mL/min BUN/Creatinine Ratio (6-22) Glucose (80-110) mg/dL Calcium (8.4-10.2) mg/dL Magnesium (1.6-2.3) mg/dL Total Bilirubin (0.2-1.3) mg/dL AST (14-36) IU/L ALT (<35) IU/L Alkaline Phosphatase (38-126) U/L Total Creatine Kinase (30-135) U/L CK-MB (CK-2) CK-MB (CK-2) Rel Index Troponin I 0.025 (0.01-0.034) ng/mL Total Protein (6.3-8.2) g/dL Albumin (3.5-5.0) g/dL Globulin (1.7-4.1) g/dL Albumin/Globulin Ratio (1.0-2.8) Lipase (23-300) U/L SARS-CoV-2 (PCR) (Negative) Imaging Data Chest x-ray: Radiologist's Impression: PROCEDURE:? XR CHEST 1V ? INDICATIONS:? chest pain ? TECHNIQUE:? One view of the chest was acquired.? ? COMPARISON:? [facility], , XR CHEST 1V, 04/16/2021, 8:57. ? FINDINGS:? ? Surgical changes and devices: ? Median sternotomy wires are present and appear intact. ? Lungs and pleura:? Mild diffuse interstitial prominence.? No substantial pleural effusion.? No pneumothorax.? No focal consolidation.? ? Mediastinum:? The cardiomediastinal contours remain stable.? Atherosclerotic calcifications of the aortic arch are present.? Mild cardiomegaly unchanged. ? Bones and chest wall:? No suspicious bony lesions.? Overlying soft tissues appear unremarkable.? ? IMPRESSION:? ? 1. Cardiomegaly with mild diffuse interstitial prominence.? This may represent early developing pulmonary edema/CHF; however, an infectious or inflammatory process not excluded if clinically appropriate.? No focal consolidation.? ? ? Dictated by: Garrett Dan M.D. on 06/30/2021 at 13:51 ? ? Approved by: Garrett Dan M.D. on 06/30/2021 at 13:52 ? ECG Data Interpretation: Normal sinus rhythm with right bundle-branch block rate 85 IN interval [address] changes EKG 2. Sinus rhythm persistent right bundle-branch block no ST changes PVCs noted similar to previous MDM Narrative Medical decision making narrative: Patient had a brief episode of left-sided sharp chest pain which lasted for only seconds. She has 2- troponins and no changes in her EKG here.. She does have known abdominal aortic aneurysm which is being followed by [facility]. She had a CT angio in December of this year and has repeat study scheduled for August. She has absolutely no back pain abdominal pain nausea or vomiting. She did not have any known thoracic aneurysm on that CT a few months ago. At this time unlikely aneurysm causing discomfort. The blood work is overall reassuring. Discussed briefly with her about goals of care an COVID vaccine, she states if she gets COVID and dies she is 85 years old and okay with it. This coincides with the previous conversation that was had with her during her last visit. At this time recommend outpatient follow-up. Discharge Plan Departure Patient Disposition: Home Clinical Impression: Atypical chest pain Instructions: DI for Atypical Chest Pain Activity Restrictions/Additional Instructions: *You have been diagnosed with atypical chest pain *What to do: At this time the you may need further testing such as a stress test and/or echocardiogram. Please call your primary care provider to schedule this. *Continue to take medications as directed *Follow up with your primary care provider in 2-3 days *Return to ER if you should have increasing chest pain, shortness of breath, palpitations, lightheadedness or any new, worsening or concerning symptoms Prescriptions: No Action tiotropium bromide [Spiriva with HandiHaler] 18 MCG capsule, w/inhalation device 1 puff INH DAILY Qty: 0 RF: 0 aspirin 81 MG tablet,delayed release (DR/EC) 81 mg PO QDAY Qty: 0 RF: 0 lisinopril 40 mg Tablet 40 mg PO DAILY RF: 0 atorvastatin [Lipitor] 20 mg Tablet 40 mg PO BEDTIME Qty: 180 RF: 0 prednisone 10 mg tablet 1 dose PO DIRECTED RF: 0 levothyroxine 75 mcg tablet 75 mcg PO DAILY RF: 0 albuterol sulfate [Ventolin HFA] 90 mcg/actuation HFA aerosol inhaler 2 puff Inhalation Q4H PRN (Reason: Shortness Of Breath) RF: 0 triamterene-hydrochlorothiazid 37.5-25 mg tablet 1 tab PO DAILY RF: 0 fluticasone propion-salmeterol [Advair Diskus] 250-50 mcg/dose Blister With Device 1 inh INHALATION BID RF: 0 ipratropium bromide [Atrovent HFA] 17 mcg/actuation Hfa Aerosol Inhaler 2 puff Inhalation QID RF: 0 omega 1-vft-zyg-fish oil [Fish Oil] 1,000 mg (120 mg-180 mg) Capsule 1,000 mg PO DAILY RF: 0 nitroglycerin [Nitrostat] 0.4 mg Tablet, Sublingual 0.4 mg SUBLINGUAL Q5-15M PRN (Reason: Chest Pain) RF: 0 fluticasone propionate [Flonase Allergy Relief] 50 mcg/actuation [place],Suspension 1 spray Intranasal BID PRN (Reason: Allergy Symptoms) RF: 0 vitamin E 400 unit Capsule 400 unit PO DAILY RF: 0 multivitamin Tablet,Chewable 1 tab PO DAILY RF: 0 ipratropium-albuterol 0.5 mg-3 mg(2.5 mg base)/3 mL solution for nebulization 3 ml INHALATION Q6-8H PRN (Reason: shortness of breath or wheezing) Qty: 90 RF: 0 prednisone 20 mg tablet 20 mg PO DAILY Qty: 5 RF: 0 furosemide [Lasix] 20 mg tablet 20 mg PO DAILY Qty: 5 RF: 0 furosemide [Lasix] 20 mg tablet 20 mg PO BID Qty: 6 RF: 0 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 10 mg tablet 10 mg PO TID PRN (Reason: muscle spasm) Qty: 10 RF: 0 prednisone 20 mg tablet 20 mg PO DAILY Qty: 20 RF: 0 prednisone 20 mg tablet 20 mg PO DAILY Qty: 5 RF: 0 Referrals: Allie Fleming MD [Primary Care Provider] -
[2021-06-30 13:54] LABS: Troponin I 0.036 ng/mL (0.01-0.034)
--- NOTE | 2021-06-30 15:33 | PC.NURSE ---
pt states chest still feels a little funny. repeat trop drawn and pt ambulating to the bathroom with steady gait. RT in room to repeat EKG
[2021-06-30 16:10] LABS: Troponin I 0.025 ng/mL (0.01-0.034)
== END 2021-06-30 17:13 | disposition home or self-care (01) ==
PROVIDERS: Emergency Provider Emergency Medicine; Family Provider Internal Medicine; PCP Internal Medicine
DX: R07.89 Other chest pain (principal); Z20.822 Contact with and (suspected) exposure to COVID-19
CPT/HCPCS: 36415; 71045; 80053; 82550; 83690; 83735; 84484; 85025; 87635; 93005; 93010; 99283; 99284; C9803

== ENCOUNTER → 2021-08-28 15:37 | Outpatient (CLI) | payer MEDICARE, SELFPAY ==
[2018-04-17 15:43] VITALS: BMI 20.8
[2021-08-28 16:19] LABS: COVID19 -Nasal RAPID Negative (Negative)
== END ==
PROVIDERS: Family Provider Internal Medicine; PCP Internal Medicine; Referring Provider Nurse Practitioner Family; Visit Provider Nurse Practitioner Family
DX: Z20.822 Contact with and (suspected) exposure to COVID-19 (principal)
CPT/HCPCS: 87635

== ENCOUNTER → 2021-08-30 09:15 | Outpatient (CLI) | payer MEDICARE, SELFPAY ==
[2018-04-17 15:43] VITALS: BMI 20.8
--- NOTE | 2021-08-30 19:42 | DI.NM.S_ITS ---
DATE OF SERVICE: 08/30/2021 PROCEDURE: Pharmacological perfusion study. INDICATION: Chest pain, shortness of breath, known history of bypass surgery, RCA stent in 2018, with congestive heart failure, ischemic cardiomyopathy. RADIOPHARMACEUTICAL: 24.8 millicurie technetium-99m Myoview IV was injected at stress and 12.1 millicurie technetium-99m Myoview IV was injected at rest. CARDIAC STRESS: The patient underwent IV Lexiscan perfusion study under the supervision of an attending staff using standard intravenous Lexiscan, as per protocol. The patient developed shortness of breath during Lexiscan. No chest pain. Baseline rhythm was sinus with right bundle branch block. During Lexiscan infusion, there was 1 to 1.5 mm horizontal/downsloping ST depression in inferior leads and leads V5 to V6, which resolved to the baseline in 3 minutes in recovery. Has some PVCs. No sustained ventricular tachycardia. RAW DATA: There is increased subdiaphragmatic activity. GATED STUDY: Resting LV ejection fraction 45 and stress LV ejection fraction 34 percent. Resting end-diastolic volume 182 mL, suggestive of dilated left ventricle. TID ratio 0.98, which is within normal limits. Lung/heart ratio 0.47, which is abnormal. MYOCARDIAL PERFUSION SCAN: Stress supine, resting supine and stress prone images were compared to each other. The resting supine images revealed small size, moderately decreased perfusion of distal anterior wall extending into the distal anteroseptum, as well as inferoapex. During stress supine and stress prone, there was a moderate-size perfusion defect of anterior wall along with distal anterior septum and inferoapex. CONCLUSION: This is an abnormal myocardial perfusion study consistent with moderate reversible ischemia of base to mid anterior wall along with infarction of distal anterior wall, distal anteroseptum, as well as inferoapex. In 07/24/2020, the anterior wall defect was not seen and resting end-diastolic volume was 153 mL. In this study, resting end-diastolic volume 182 mL. Previous stress left ventricular ejection fraction was 38 percent and in this study, 34 percent. The patient had abnormal electrocardiographic ischemic changes during Lexiscan infusion. Discussed the report with primary care physician, Dr. Fleming, and recommended left heart catheterization. Lindsay Aguilar - NIRAJ/evens/mateo doc#: [id number]/job#: [id number] dd: 08/30/2021 17:19:00 dt: 08/30/2021 18:22:00 DICTATING MD/COPIES TO: Emerson Hernandez MD COPIES MNE: ALAN;
== END ==
PROVIDERS: Family Provider Internal Medicine; PCP Internal Medicine; Referring Provider Internal Medicine; Visit Provider Internal Medicine
DX: R94.39 Abnormal result of other cardiovascular function study (principal); R07.9 Chest pain, unspecified; R06.02 Shortness of breath; I50.9 Heart failure, unspecified; I25.5 Ischemic cardiomyopathy; Z95.1 Presence of aortocoronary bypass graft; Z95.5 Presence of coronary angioplasty implant and graft
CPT/HCPCS: 78452; 93017; A9502; J2785

== ENCOUNTER 2021-09-15 12:47 | Inpatient (IN) | payer OTHER, SELFPAY ==
[2018-04-17 15:43] VITALS: BMI 20.8
[2021-09-15] VITALS (9 sets, daily range): BP systolic 135–141; BP diastolic 63–65; PULSE 76–91; RESP 18–34; TEMP 36.5–37.2; O2SAT 88–98; BMI 24.6; BMI 23.1
--- NOTE | 2021-09-15 12:58 | DI.RAD.S_ITS ---
PROCEDURE: XR CHEST 1V INDICATIONS: shortness of breath TECHNIQUE: One view of the chest was acquired. COMPARISON: [facility], , XR CHEST 1V, 06/30/2021, 13:26. FINDINGS: Surgical changes and devices: Remote CABG Lungs and pleura: Lungs are clear. No pleural effusions or pneumothorax. Diffuse chronic interstitial change. Cannot exclude subtle interstitial pulmonary edema. Mediastinum: Mediastinal contours appear normal. Cardiomegaly. Bones and chest wall: No suspicious bony lesions. Overlying soft tissues appear unremarkable. IMPRESSION: Diffuse interstitial change. Question subtle mild changes of interstitial pulmonary edema. Dictated by: Casper Ferraro M.D. on 09/15/2021 at 13:54 Approved by: Casper Ferraro M.D. on 09/15/2021 at 13:55
[2021-09-15 13:17] LABS: COVID19 -Nasal RAPID POSITIVE (Negative)
[2021-09-15 13:18] LABS: Add Manual Diff / Slide Review NO; Basophils Absolute Auto 0 /uL (0-100); Basophils Percent Auto 0.8 % (0-2); Eosinophils Absolute Auto 100 /uL (0-450); Hematocrit 44.5 % (36-46); Hemoglobin 15.1 g/dL (12.0-16.0); Lymphocytes Absolute Auto 600 /uL (1100-4500); Lymphocytes Percent Auto 10.6 % (25-40); Mean Corpuscular Hemoglobin 28.7 PG (26-34); Mean Corpuscular Volume 84.4 fL (80-100); Monocytes Absolute Auto 700 /uL (0-900); Monocytes Percent Auto 13.4 % (3-14); Neutrophils Absolute Auto 4000 /uL (1500-7000); Neutrophils Percent Auto 74.2 % (50-75); Platelet Count 197 X10^3/uL (150-400); Red Blood Cell Count 5.27 X10^6/uL (4.0-5.2); Red Cell Distribution Width 15.1 % (11.6-14.8); White Blood Cell Count 5.3 X10^3/uL (4.5-11.0)
[2021-09-15 13:30] LABS: Creatine Kinase 40 U/L (30-135); Lactate (Lactic Acid) 1.1 mmol/L (0.7-2.1)
[2021-09-15 13:32] LABS: Alanine Aminotransferase 21 IU/L (<35); Albumin 4.1 g/dL (3.5-5.0); Albumin Globulin Ratio 1.4 (1.0-2.8); Alkaline Phosphatase 55 U/L (38-126); Aspartate Aminotransferase 45 IU/L (14-36); BUN Creatinine Ratio 22.2 (6-22); Bilirubin Total 1.4 mg/dL (0.2-1.3); Blood Urea Nitrogen 22 mg/dL (7-17); Calcium 9.9 mg/dL (8.4-10.2); Carbon Dioxide 28 mmol/L (22-32); Chloride 98 mmol/L (98-107); Estimated Glomerular Filt Rate 53.4 mL/min (>60); Globulin 2.9 g/dL (1.7-4.1); Glucose 102 mg/dL (80-110); HEMOLYSIS 96 (0-50); Potassium 4.3 mmol/L (3.4-5.1); Sodium 133 mmol/L (137-145)
[2021-09-15 13:39] LABS: NT-proBNP (BNP-Adult 18+) 4500 pg/mL (<450)
[2021-09-15 13:43] LABS: Troponin I 0.042 ng/mL (0.01-0.034)
--- NOTE | 2021-09-15 14:22 | ED_ITS ---
HPI - General Adult General Chief complaint: Shortness of Breath/Dyspnea Stated complaint: THINKS COVID SENT BY [facility] Time Seen by Provider: 09/15/21 13:02 Source: patient Mode of arrival: Ambulatory History of Present Illness HPI narrative: Patient is an 85-year-old female. History of high blood pressure, COPD, coronary artery disease. She is unvaccinated against COVID-19. She states that for the past week she has had worsening shortness of breath and cough at home. She thought potentially she was having a COPD exacerbation. She has been using her nebulizers at home without much improvement. She denies chest pain. No fevers. No known sick contacts. She has been taking all of her medications as directed. She went to the walk-in clinic earlier today for her symptoms he sent her to the emergency department for further evaluation and concern for COVID. Related Data Home Medications Medication Instructions Recorded Confirmed tiotropium bromide 18 mcg capsule 1 puff INH DAILY #0 04/28/17 08/22/18 with inhalation device (Spiriva with HandiHaler) aspirin 81 mg tablet,delayed 81 mg PO QDAY #0 07/11/17 08/22/18 release lisinopril 40 mg tablet 40 mg PO DAILY 04/19/18 08/22/18 albuterol sulfate 90 mcg/actuation 2 puff INHALATION Q4H PRN 07/07/18 08/22/18 aerosol inhaler fluticasone 250 mcg-salmeterol 50 1 inh INHALATION BID 07/07/18 08/22/18 mcg/dose blistr powdr for inhalation (Advair Diskus) fluticasone propionate 50 1 spray INTRANASAL BID PRN 07/07/18 08/22/18 mcg/actuation nasal spray,suspension (Flonase Allergy Relief) ipratropium bromide 17 2 puff INHALATION QID 07/07/18 08/22/18 mcg/actuation HFA aerosol inhaler (Atrovent HFA) levothyroxine 75 mcg tablet 75 mcg PO DAILY 07/07/18 08/22/18 multivitamin 1 tab PO DAILY 07/07/18 08/22/18 nitroglycerin 0.4 mg sublingual 0.4 mg SUBLINGUAL Q5-15M PRN 07/07/18 08/22/18 tablet (Nitrostat) omega [id number]-[id number]-fish oil 1,000 mg 1,000 mg PO DAILY 07/07/18 08/22/18 (120 mg-180 mg) capsule (Fish Oil) prednisone 10 mg tablet 1 dose PO DIRECTED 07/07/18 08/22/18 triamterene 37.5 1 tab PO DAILY 07/07/18 08/22/18 mg-hydrochlorothiazide 25 mg tablet vitamin E 400 unit capsule 400 unit PO DAILY 07/07/18 08/22/18 Previous Rx's Medication Instructions Recorded atorvastatin 20 mg tablet (Lipitor) 40 mg PO BEDTIME #180 tab 04/20/18 ipratropium 0.5 mg-albuterol 3 mg 3 ml INHALATION Q6-8H PRN #90 ml 11/04/18 (2.5 mg base)/3 mL nebulization soln prednisone 20 mg tablet 20 mg PO DAILY #5 tab 11/04/18 furosemide 20 mg tablet (Lasix) 20 mg PO BID #6 tab 01/16/19 furosemide 20 mg tablet (Lasix) 20 mg PO DAILY #5 tab 01/16/19 prednisone 20 mg tablet 20 mg PO DAILY #5 tab 09/16/19 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 10 mg tablet 10 mg PO TID PRN #10 tab 01/21/21 prednisone 20 mg tablet 20 mg PO DAILY #20 tab 04/16/21 Allergies Allergy/AdvReac Type Severity Reaction Status Date / Time acarbose Allergy Intermediate Abdominal Verified 09/15/21 12:59 Pain amlodipine Allergy Intermediate Verified 09/15/21 12:59 chlorthalidone Allergy Intermediate Redness of Verified 09/15/21 12:59 Skin doxazosin [From Cardura] Allergy Intermediate Rash Verified 09/15/21 12:59 doxycycline Allergy Intermediate Rash Verified 09/15/21 12:59 gemfibrozil Allergy Intermediate Rash Verified 09/15/21 12:59 levofloxacin Allergy Intermediate Rash Verified 09/15/21 12:59 losartan Allergy Intermediate Rash Verified 09/15/21 12:59 metoprolol Allergy Intermediate Verified 09/15/21 12:59 montelukast [From Singulair] Allergy Intermediate Difficulty Verified 09/15/21 12:59 Breathing nifedipine Allergy Intermediate Chills Verified 09/15/21 12:59 Sulfa (Sulfonamide Allergy Intermediate rash Verified 09/15/21 12:59 Antibiotics) sulfamethoxazole Allergy Intermediate Rash Verified 09/15/21 12:59 [From Bactrim] trimethoprim [From Bactrim] Allergy Intermediate Rash Verified 09/15/21 12:59 budesonide [From Symbicort] Allergy Mild Anxiety Verified 09/15/21 12:59 carvedilol Allergy Mild Rash Verified 09/15/21 12:59 choline fenofibrate Allergy Mild Gastrointestinal Verified 09/15/21 12:59 [From Trilipix] Upset formoterol [From Symbicort] Allergy Mild Anxiety Verified 09/15/21 12:59 Review of Systems Constitutional Constitutional: Denies chills and Denies fever(s) Cardiovascular Cardiovascular: Denies chest pain and Reports dyspnea Respiratory Respiratory: Reports cough and Reports dyspnea Gastrointestinal Gastrointestinal: Denies abdominal pain, Denies nausea and Denies vomiting Genitourinary Genitourinary: Denies dysuria Integumentary/Breasts Skin/Breast: Reports system reviewed and no additional complaints, except as documented Neurologic Neurologic: Reports system reviewed and no additional complaints, except as d ocumented Hematologic/Lymphatic On Anticoagulants: No Patient History Medical History Aneurysm of infrarenal abdominal aorta Bilateral carpal tunnel syndrome CAD (coronary artery disease) COPD (chronic obstructive pulmonary disease) with emphysema Elevated TSH HTN (hypertension) Hyperlipidemia Unstable angina Valvular heart disease Surgical History H/O hysterectomy with oophorectomy H/O three vessel coronary artery bypass Hx of heart artery stent Status post cholecystectomy Family History (Updated 09/15/21 @ 15:39 by Yessica Torres MD) Father Lung cancer Mother COPD (chronic obstructive pulmonary disease) Social History household members: children Smoking Status: Former smoker alcohol intake: never Smoking Status: Former smoker alcohol intake frequency: 0-2 drinks per day Substance Use Type: does not use Exam Initial Vital Signs Initial Vital Signs: Vital Signs Temperature 97.7 F 09/15/21 12:55 Pulse Rate 91 H 09/15/21 12:55 Respiratory Rate 25 H 09/15/21 12:55 Blood Pressure 141/65 H 09/15/21 12:55 Pulse Oximetry 90 L 09/15/21 12:55 HENMT Head: normal to inspection and normocephalic Resp Effort & Inspection: normal respiratory effort, no respiratory distress and tachypneic Auscultation: clear to auscultation bilaterally Cardio Rate: regular rate Rhythm: regular rhythm Skin General: no rashes or lesions noted Neuro General: patient alert, patient awake and moves all extremities Extrem General: normal to inspection and capillary refill normal Psych Appearance: grossly normal and well kempt Scores GCS Luh coma scale eye opening: Spontaneous [place] coma scale verbal response: Orientated [place] coma scale motor response: Obey commands Luh coma scale total score: 15 Course Orders Ordered: ED Orders 09/15/21 12:55 COVID19 -Nasal swab/Pre-Proc Stat 09/15/21 12:58 XR chest 1V Stat EKG-12 Lead Stat Measure peak expiratory flow ONCE RT Consult Eval and Treat Now 09/15/21 13:10 Complete Blood Count AUTO DIFF Stat Comprehensive Metabolic Panel Stat Lactate (Lactic Acid) Stat NT-proBNP (BNP-Adult 18+) Stat Troponin & CK Cardiac Panel Stat Acetaminophen (Acetaminophen 325 Mg Tablet) 650 mg PO Q6HR PRN PRN Reason: Fever/Mild Pain (1-3) Hydrocodone Bitart/Acetaminophen (Hydrocodone/Acet 5/325 Tablet) 1 tab PO Q4HR PRN PRN Reason: Pain, Moderate (4-6) Dexamethasone (Dexamethasone 10 Mg/Ml Vial) 6 mg IV DAILY [facility] Enoxaparin Sodium (Enoxaparin 40 Mg/0.4 Ml Syringe) 40 mg SUBCUT DAILY [facility] Dextrose/Sodium Chloride (Dextrose 5%-0.9% Ns) 1,000 mls @ 70 mls/hr IV CONT [facility] Remdesivir 100 mg/ Sodium (Chloride) 250 mls @ 250 mls/hr IV 1500 ROLANDA Stop: 09/19/21 15:59 Naloxone HCl (Naloxone 0.4 Mg/Ml Vial) 0.2 mg IV Q2MIN PRN PRN Reason: Opiate Reversal Ondansetron HCl (Ondansetron 4 Mg/2 Ml Inj) 4 mg IV Q8HR PRN PRN Reason: Nausea And Vomiting Discontinued Medications Dexamethasone (Dexamethasone 10 Mg/Ml Vial) 10 mg IV NOW ONE Stop: 09/15/21 14:23 Last Admin: 09/15/21 14:51 Dose: 10 mg Documented by: ADAN Remdesivir 200 mg/ Sodium (Chloride) 250 mls @ 250 mls/hr IV NOW ONE Stop: 09/15/21 15:21 Vital Signs Vital signs: Vital Signs - 8 hr 09/15/21 12:55 09/15/21 13:23 09/15/21 13:26 Temperature 97.7 F Pulse Rate 91 H 82 Respiratory Rate 25 H 19 Blood Pressure 141/65 H Pulse Oximetry 90 L 88 L 94 09/15/21 13:30 09/15/21 14:00 09/15/21 14:30 Temperature Pulse Rate 81 84 83 Respiratory Rate 18 19 19 Blood Pressure Pulse Oximetry 96 96 97 Medical Decision Making Medical Records Medical records reviewed: Yes I reviewed the patient's medical records. Lab Data Lab results reviewed: Yes I reviewed the patient's lab results. Result diagrams: 09/15/21 13:10 09/15/21 13:10 Labs: Lab Results 09/15/21 09/15/21 09/15/21 Range/Units 12:55 13:10 13:10 WBC 5.3 (4.5-11.0) X10^3/uL RBC 5.27 H (4.0-5.2) X10^6/uL Hgb 15.1 (12.0-16.0) g/dL Hct 44.5 (36-46) % MCV 84.4 (80-100) fL MCH 28.7 (26-34) PG MCHC 34.0 (30-36) % RDW 15.1 H (11.6-14.8) % Plt Count 197 (150-400) X10^3/uL Neut % (Auto) 74.2 (50-75) % Lymph % (Auto) 10.6 L (25-40) % [place] % (Auto) 13.4 (3-14) % Eos % (Auto) 1.0 L (2-4) % Baso % (Auto) 0.8 (0-2) % Neut # (Auto) 4000 (9343-3822) /uL Lymph # (Auto) 600 L (2349-3232) /uL [place] # (Auto) 700 (0-900) /uL Eos # (Auto) 100 (0-450) /uL Baso # (Auto) 0 (0-100) /uL Sodium 133 L (137-145) mmol/L Potassium 4.3 (3.4-5.1) mmol/L Chloride 98 (98-107) mmol/L Carbon Dioxide 28 (22-32) mmol/L BUN 22 H (7-17) mg/dL Creatinine 0.99 (0.52-1.04) mg/dL Estimated GFR 53.4 L (>60) mL/min BUN/Creatinine Ratio 22.2 H (6-22) Glucose 102 (80-110) mg/dL Lactate (0.7-2.1) mmol/L Calcium 9.9 (8.4-10.2) mg/dL Total Bilirubin 1.4 H (0.2-1.3) mg/dL AST 45 H (14-36) IU/L ALT 21 (<35) IU/L Alkaline Phosphatase 55 (38-126) U/L Total Creatine Kinase (30-135) U/L CK-MB (CK-2) CK-MB (CK-2) Rel Index Troponin I (0.01-0.034) ng/mL NT-Pro-B Natriuret Pep (<450) pg/mL Total Protein 7.0 (6.3-8.2) g/dL Albumin 4.1 (3.5-5.0) g/dL Globulin 2.9 (1.7-4.1) g/dL Albumin/Globulin Ratio 1.4 (1.0-2.8) SARS-CoV-2 (PCR) Positive H (Negative) 09/15/21 09/15/21 09/15/21 Range/Units 13:10 13:10 13:10 WBC (4.5-11.0) X10^3/uL RBC (4.0-5.2) X10^6/uL Hgb (12.0-16.0) g/dL Hct (36-46) % MCV (80-100) fL MCH (26-34) PG MCHC (30-36) % RDW (11.6-14.8) % Plt Count (150-400) X10^3/uL Neut % (Auto) (50-75) % Lymph % (Auto) (25-40) % [place] % (Auto) (3-14) % Eos % (Auto) (2-4) % Baso % (Auto) (0-2) % Neut # (Auto) (8997-5147) /uL Lymph # (Auto) (8194-5899) /uL [place] # (Auto) (0-900) /uL Eos # (Auto) (0-450) /uL Baso # (Auto) (0-100) /uL Sodium (137-145) mmol/L Potassium (3.4-5.1) mmol/L Chloride (98-107) mmol/L Carbon Dioxide (22-32) mmol/L BUN (7-17) mg/dL Creatinine (0.52-1.04) mg/dL Estimated GFR (>60) mL/min BUN/Creatinine Ratio (6-22) Glucose (80-110) mg/dL Lactate 1.1 (0.7-2.1) mmol/L Calcium (8.4-10.2) mg/dL Total Bilirubin (0.2-1.3) mg/dL AST (14-36) IU/L ALT (<35) IU/L Alkaline Phosphatase (38-126) U/L Total Creatine Kinase 40 (30-135) U/L CK-MB (CK-2) TNP CK-MB (CK-2) Rel Index TNP Troponin I 0.042 H (0.01-0.034) ng/mL NT-Pro-B Natriuret Pep 4500 H (<450) pg/mL Total Protein (6.3-8.2) g/dL Albumin (3.5-5.0) g/dL Globulin (1.7-4.1) g/dL Albumin/Globulin Ratio (1.0-2.8) SARS-CoV-2 (PCR) (Negative) Imaging Data Chest x-ray: Radiologist's Impression: [address] [address] XRay Report Signed Patient: Lindsay Aguilar MR#: [id number] : 1935 Acct:[id number] Age/Sex: 85 / F Date of Service: 09/15/21 Loc: ED Accession Number: [id number] ?? Procedure: XR chest 1V Ordering Provider: Jean Ta D.O. PROCEDURE:? XR CHEST 1V ? INDICATIONS:? shortness of breath ? TECHNIQUE:? One view of the chest was acquired.? ? COMPARISON:? [facility], CR, XR CHEST 1V, 06/30/2021, 13:26. ? FINDINGS:? ? Surgical changes and devices:? Remote CABG ? Lungs and pleura:? Lungs are clear.? No pleural effusions or pneumothorax.? Diffuse chronic interstitial change.? Cannot exclude subtle interstitial pulmonary edema.? ? Mediastinum:? Mediastinal contours appear normal.? Cardiomegaly. ? Bones and chest wall:? No suspicious bony lesions.? Overlying soft tissues appear unremarkable.? ? IMPRESSION:? Diffuse interstitial change.? Question subtle mild changes of interstitial pulmonary edema. ? ? Dictated by: Casper Ferraro M.D. on 09/15/2021 at 13:54 ? ? Approved by: Casper Ferraro M.D. on 09/15/2021 at 13:55?? ECG Data Attestation: I personally reviewed and interpreted this ECG as follows: Prior ECG tracings: available for review Interpretation: Sinus rhythm Ventricular rate 81 Normal axis Right bundle branch block LVH Unchanged from June 2021 MDM Narrative Medical decision making narrative: EKG unchanged from June 2021. She denies chest pain. Seven shortness of breath and cough. Patient is COVID positive. She was informed of this. She has clear lung exam. She is requiring oxygen to maintain saturations above 90. Given her age, comorbidities, need for oxygen, hypoxia and COVID diagnosis patient does require admission to the hospital. Discussed the case with Dr. Torres with internal medicine who will admit for further evaluation treatment. I did discuss this with the patient as well. We did discuss treatment with steroids and remdesivir in the patient expressed understanding and agreement. Discharge Plan Departure Patient Disposition: Admitted As Inpatient Clinical Impression: COPD (chronic obstructive pulmonary disease), Hypoxia, COVID-19 Admit Date/Time: 09/15/21 14:52 Admit Provider: Yessica Torres
[2021-09-15] MEDS: DEXAMETHASONE 10 MG/ML VIAL IV (14:51)
--- NOTE | 2021-09-15 15:32 | DI.RAD.S_ITS ---
PROCEDURE: XR CHEST 1V INDICATIONS: flu-like symptoms TECHNIQUE: One view of the chest was acquired. COMPARISON: [facility], CR, XR CHEST 1V, 06/30/2021, 13:26. [facility], CR, XR CHEST 1 VIEW, 08/30/2021, 23:34. [facility], CR, XR CHEST 1V, 09/15/2021, 13:00. FINDINGS: Surgical changes and devices: Post CABG changes are seen. Apparent pericardial leads are seen inferiorly. There is partial visualization of cholecystectomy clips. Lungs and pleura: On this semiupright portable chest examination, no large pneumothorax or large pleural effusions are seen. Low lung volumes are noted. This causes a crowded appearance to the lung markings and limits evaluation. Diffuse interstitial prominence is seen, as before. Mediastinum: The cardiac contours are mildly enlarged. The aorta demonstrates calcification and tortuosity. Bones and chest wall: No suspicious bony lesions. Age-appropriate bony degenerative changes are seen. Overlying soft tissues appear unremarkable. IMPRESSION: Low lung volumes with diffuse interstitial prominence. There is mild cardiomegaly. Differential diagnosis includes mild CHF. Postoperative and degenerative changes are seen. Dictated by: Hernando Lake M.D. on 09/15/2021 at 15:06 Approved by: Hernando Lake M.D. on 09/15/2021 at 15:08
--- NOTE | 2021-09-15 15:34 | P.HP_ITS ---
History of Present Illness History of Present Illness Date Patient Seen: 09/15/21 Time Patient Seen: 15:35 Date of Onset of Symptoms: 09/12/21 Chief complaint: THINKS COVID SENT BY [facility] Narrative: This is an 85-year-old female with COPD, dependent on oxygen at night, CAD, hyperlipidemia, Hypothyroidism and hypertension who presents with COVID pneumonia. She describes to me 2 days of increased dyspnea compared to her usual chronic COPD dyspnea along with fatigue. She described a week of progressive symptoms in the emergency department. She is not vaccinated for COVID because she recalls getting pneumonia ?3 times since my 1st pneumonia shot. ? Also a friend had a Covid infection and reassured her that it was no worse than a head cold. 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 She has COPD and is on oxygen 2 L at night only. She has had no fevers, coughing or chest pain. She is hypoxic into the 80s when ambulating in the ED. With 2 L nasal cannula she saturates in the mid 90s. Her troponin is 0.042. Her chest x-ray shows viral pneumonia changes. She is agreeable to a hospital admission for treatment of hypoxia along with steroids and remdesivir. Patient History Medical History Aneurysm of infrarenal abdominal aorta Bilateral carpal tunnel syndrome CAD (coronary artery disease) COPD (chronic obstructive pulmonary disease) with emphysema Elevated TSH HTN (hypertension) Hyperlipidemia Unstable angina Valvular heart disease Surgical History H/O hysterectomy with oophorectomy H/O three vessel coronary artery bypass Hx of heart artery stent Status post cholecystectomy Family & Social History Family History (Updated 09/15/21 @ 15:39 by Yessica Torres MD) Father Lung cancer Mother COPD (chronic obstructive pulmonary disease) Social History: household members children Safety & Behavioral: Feels Safe in Current Yes Environment Been Physically Hurt or No Threatened By a Person Tobacco & Substance use: Tobacco type cigarettes Smoking Status Former smoker alcohol intake never alcohol intake frequency 0-2 drinks per day Substance Use Type does not use Comment: She only smoked while she was a teenager. Her backup decision maker is her son Fede who she lives with. Dr. Fleming is her primary care physician. Meds Home Medications and Allergies Home Medications Medication Instructions Recorded Confirmed Type tiotropium bromide 18 mcg capsule 1 puff INH DAILY #0 04/28/17 08/22/18 History with inhalation device (Spiriva with HandiHaler) aspirin 81 mg tablet,delayed 81 mg PO QDAY #0 07/11/17 08/22/18 History release lisinopril 40 mg tablet 40 mg PO DAILY 04/19/18 08/22/18 History atorvastatin 20 mg tablet (Lipitor) 40 mg PO BEDTIME #180 tab 04/20/18 08/22/18 Rx albuterol sulfate 90 mcg/actuation 2 puff INHALATION Q4H PRN 07/07/18 08/22/18 History aerosol inhaler fluticasone 250 mcg-salmeterol 50 1 inh INHALATION BID 07/07/18 08/22/18 History mcg/dose blistr powdr for inhalation (Advair Diskus) fluticasone propionate 50 1 spray INTRANASAL BID PRN 07/07/18 08/22/18 History mcg/actuation nasal spray,suspension (Flonase Allergy Relief) ipratropium bromide 17 2 puff INHALATION QID 07/07/18 08/22/18 History mcg/actuation HFA aerosol inhaler (Atrovent HFA) levothyroxine 75 mcg tablet 75 mcg PO DAILY 07/07/18 08/22/18 History multivitamin 1 tab PO DAILY 07/07/18 08/22/18 History nitroglycerin 0.4 mg sublingual 0.4 mg SUBLINGUAL Q5-15M PRN 07/07/18 08/22/18 History tablet (Nitrostat) omega 8-jrj-iyn-fish oil 1,000 mg 1,000 mg PO DAILY 07/07/18 08/22/18 History (120 mg-180 mg) capsule (Fish Oil) prednisone 10 mg tablet 1 dose PO DIRECTED 07/07/18 08/22/18 History triamterene 37.5 1 tab PO DAILY 07/07/18 08/22/18 History mg-hydrochlorothiazide 25 mg tablet vitamin E 400 unit capsule 400 unit PO DAILY 07/07/18 08/22/18 History ipratropium 0.5 mg-albuterol 3 mg 3 ml INHALATION Q6-8H PRN #90 ml 11/04/18 Rx (2.5 mg base)/3 mL nebulization soln prednisone 20 mg tablet 20 mg PO DAILY #5 tab 11/04/18 Rx furosemide 20 mg tablet (Lasix) 20 mg PO BID #6 tab 01/16/19 Rx furosemide 20 mg tablet (Lasix) 20 mg PO DAILY #5 tab 01/16/19 Rx prednisone 20 mg tablet 20 mg PO DAILY #5 tab 09/16/19 Rx 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 10 mg tablet 10 mg PO TID PRN #10 tab 01/21/21 Rx prednisone 20 mg tablet 20 mg PO DAILY #20 tab 04/16/21 Rx Allergies Allergy/AdvReac Type Severity Reaction Status Date / Time acarbose Allergy Intermediate Abdominal Verified 09/15/21 12:59 Pain amlodipine Allergy Intermediate Verified 09/15/21 12:59 chlorthalidone Allergy Intermediate Redness of Verified 09/15/21 12:59 Skin doxazosin [From Cardura] Allergy Intermediate Rash Verified 09/15/21 12:59 doxycycline Allergy Intermediate Rash Verified 09/15/21 12:59 gemfibrozil Allergy Intermediate Rash Verified 09/15/21 12:59 levofloxacin Allergy Intermediate Rash Verified 09/15/21 12:59 losartan Allergy Intermediate Rash Verified 09/15/21 12:59 metoprolol Allergy Intermediate Verified 09/15/21 12:59 montelukast [From Singulair] Allergy Intermediate Difficulty Verified 09/15/21 12:59 Breathing nifedipine Allergy Intermediate Chills Verified 09/15/21 12:59 Sulfa (Sulfonamide Allergy Intermediate rash Verified 09/15/21 12:59 Antibiotics) sulfamethoxazole Allergy Intermediate Rash Verified 09/15/21 12:59 [From Bactrim] trimethoprim [From Bactrim] Allergy Intermediate Rash Verified 09/15/21 12:59 budesonide [From Symbicort] Allergy Mild Anxiety Verified 09/15/21 12:59 carvedilol Allergy Mild Rash Verified 09/15/21 12:59 choline fenofibrate Allergy Mild Gastrointestinal Verified 09/15/21 12:59 [From Trilipix] Upset formoterol [From Symbicort] Allergy Mild Anxiety Verified 09/15/21 12:59 Review of Systems Review of Systems Narrative: Positive for shortness of breath and fatigue Negative for fevers, chills, sweats, chest pain, abdominal pain, nausea, vomiting, seizures, joint pain, bleeding, rash, dysuria, sore throat, headache. Exam Vital Signs (past 8 hours): - 09/15/21 12:55 09/15/21 13:23 09/15/21 13:26 Temperature 97.7 F Pulse Rate 91 H 82 Respiratory Rate 25 H 19 Blood Pressure 141/65 H Pulse Oximetry 90 L 88 L 94 09/15/21 13:30 09/15/21 14:00 09/15/21 14:30 Temperature Pulse Rate 81 84 83 Respiratory Rate 18 19 19 Blood Pressure Pulse Oximetry 96 96 97 09/15/21 15:00 09/15/21 15:19 Temperature Pulse Rate 76 80 Respiratory Rate 18 34 H Blood Pressure 135/64 Pulse Oximetry 98 96 Oxygen Delivery Method Nasal Cannula Oxygen Flow Rate 2 Narrative Exam Narrative: She is alert and oriented. She is in no apparent distress. Pupils are equally round and reactive to light and accommodation. Extraocular muscles are intact. Sclerae are pink and nonicteric. Throat looks normal. No lymph nodes are felt head, neck, supraclavicular area. There is no thyromegaly. JVD is less than 6 cm. No carotid bruits are heard. Heart is regular rate and rhythm with a 1/6 systolic ejection murmur. Lungs are filled with loud crackles bilaterally. Abdomen is soft, bowel sounds positive, nontender, no organomegaly. Extremities have no ankle edema. Skin has no rash or jaundice. Neurological exam: There is no tremor Cranial nerves 2-12 test intact Motor function is 5/5 throughout. Objective Labs Result Diagrams: 09/15/21 13:10 09/15/21 13:10 Labs: Laboratory Results - last 24 hr 09/15/21 09/15/21 09/15/21 12:55 13:10 13:10 WBC 5.3 RBC 5.27 H Hgb 15.1 Hct 44.5 MCV 84.4 MCH 28.7 MCHC 34.0 RDW 15.1 H Plt Count 197 Neut % (Auto) 74.2 Lymph % (Auto) 10.6 L Harmon % (Auto) 13.4 Eos % (Auto) 1.0 L Baso % (Auto) 0.8 Neut # (Auto) 4000 Lymph # (Auto) 600 L Harmon # (Auto) 700 Eos # (Auto) 100 Baso # (Auto) 0 Sodium 133 L Potassium 4.3 Chloride 98 Carbon Dioxide 28 BUN 22 H Creatinine 0.99 Estimated GFR 53.4 L BUN/Creatinine Ratio 22.2 H Glucose 102 Lactate Calcium 9.9 Total Bilirubin 1.4 H AST 45 H ALT 21 Alkaline Phosphatase 55 Total Creatine Kinase CK-MB (CK-2) CK-MB (CK-2) Rel Index Troponin I NT-Pro-B Natriuret Pep Total Protein 7.0 Albumin 4.1 Globulin 2.9 Albumin/Globulin Ratio 1.4 SARS-CoV-2 (PCR) Positive H 09/15/21 09/15/21 09/15/21 13:10 13:10 13:10 WBC RBC Hgb Hct MCV MCH MCHC RDW Plt Count Neut % (Auto) Lymph % (Auto) Harmon % (Auto) Eos % (Auto) Baso % (Auto) Neut # (Auto) Lymph # (Auto) Harmon # (Auto) Eos # (Auto) Baso # (Auto) Sodium Potassium Chloride Carbon Dioxide BUN Creatinine Estimated GFR BUN/Creatinine Ratio Glucose Lactate 1.1 Calcium Total Bilirubin AST ALT Alkaline Phosphatase Total Creatine Kinase 40 CK-MB (CK-2) TNP CK-MB (CK-2) Rel Index TNP Troponin I 0.042 H NT-Pro-B Natriuret Pep 4500 H Total Protein Albumin Globulin Albumin/Globulin Ratio SARS-CoV-2 (PCR) Assessment & Plan Assessment & Plan narrative: This is an 85-year-old female with COPD, dependent on oxygen at night, CAD, hyperlipidemia, Hypothyroidism and hypertension who presents with COVID pneumon ia. COVID viral pneumonia, present on admission. Active. -unvaccinated per patient choice -remdesivir and dexamethasone daily -currently requiring 2 L nasal cannula, monitor and adjust -she confirms during our conversation that she is full code and would want to be intubated if needed. COPD with nocturnal hypoxia, present on admission. Active. -continue oxygen, noting that she is dependent on 2 L nasal cannula at night. -dexamethasone IV -as needed albuterol -full code Coronary artery disease, present on admission. Chronic. -troponin of 0.042 -no chest pain or cardiac symptoms -continue atorvastatin and aspirin -history of CABG and recent nuc med study per Dr. Dill -EKG with right bundle-branch block and left ventricular hypertrophy unchanged. Hypertension, present on admission. Chronic. -continue Maxzide and lisinopril Hyperlipidemia, present on admission. Chronic. -Continue Lipitor Hypothyroidism, present on admission. Chronic. -continue levothyroxine She is high risk for DVT/PE and will be treated with Lovenox subQ 40 mg daily Time Spent With Patient Critical Care time: I spent a total of [] minutes of critical care time on this patient's care today; this time is exclusive of procedural time.
[2021-09-15] MEDS: DEXTROSE 5%-0.9% NS 1,000 ML 70 ML IV (17:30)
[2021-09-15] MEDS: REMDESIVIR 200 MG in SODIUM CHLORIDE 0.9% 210 ML 250 ML IV (17:32)
[2021-09-15 19:05] LABS: Influenza A - CEPHEID Flu A NEGATIVE (NEGATIVE); Influenza B - CEPHEID Flu B NEGATIVE (NEGATIVE)
[2021-09-15] MEDS: ATORVASTATIN 20 MG TABLET 40 MG PO (21:11)
[2021-09-16 01:00] VITALS: BP 147/71; PULSE 69; RESP 16; TEMP 36.8; O2SAT 97
[2021-09-16 02:17] LABS: Alanine Aminotransferase 19 IU/L (<35); Albumin 3.6 g/dL (3.5-5.0); Albumin Globulin Ratio 1.3 (1.0-2.8); Alkaline Phosphatase 52 U/L (38-126); Aspartate Aminotransferase 30 IU/L (14-36); BUN Creatinine Ratio 28.2 (6-22); Bilirubin Total 0.7 mg/dL (0.2-1.3); Blood Urea Nitrogen 22 mg/dL (7-17); Calcium 9.6 mg/dL (8.4-10.2); Carbon Dioxide 28 mmol/L (22-32); Chloride 101 mmol/L (98-107); Estimated Glomerular Filt Rate > 60.0 mL/min (>60); Globulin 2.7 g/dL (1.7-4.1); Glucose 175 mg/dL (80-110); HEMOLYSIS 19 (0-50); Potassium 4.1 mmol/L (3.4-5.1); Sodium 133 mmol/L (137-145); Total Protein 6.3 g/dL (6.3-8.2)
--- NOTE | 2021-09-16 02:21 | PC.NURSE ---
0100- Patient had a 7 beat run of VTach at a rate of 150. Dr. Da Silva notified and orders received. Labs drawn early electrolytes WNL. Will monitor.
[2021-09-16 02:23] LABS: Add Manual Diff / Slide Review NO; Basophils Absolute Auto 0 /uL (0-100); Basophils Percent Auto 0.4 % (0-2); Eosinophils Absolute Auto 0 /uL (0-450); Eosinophils Percent Auto 0.1 % (2-4); Hematocrit 43.7 % (36-46); Hemoglobin 14.5 g/dL (12.0-16.0); Lymphocytes Absolute Auto 300 /uL (1100-4500); Lymphocytes Percent Auto 13.6 % (25-40); Mean Corpuscular HGB Conc 33.1 % (30-36); Mean Corpuscular Hemoglobin 28.4 PG (26-34); Mean Corpuscular Volume 85.7 fL (80-100); Monocytes Absolute Auto 200 /uL (0-900); Monocytes Percent Auto 8.2 % (3-14); Neutrophils Absolute Auto 1600 /uL (1500-7000); Neutrophils Percent Auto 77.7 % (50-75); Platelet Count 183 X10^3/uL (150-400); Red Blood Cell Count 5.11 X10^6/uL (4.0-5.2); Red Cell Distribution Width 14.9 % (11.6-14.8)
[2021-09-16 08:15] VITALS: BP 148/82; PULSE 76; RESP 17; TEMP 36.3; O2SAT 95
--- NOTE | 2021-09-16 08:50 | CM.DANOTE ---
DCP Assessment: Patient is an 85 yr old female who was admitted for COVID pneumonia. CM called the patient and explained role. CM was unable to meet with the patient face to face since the patient has Covid. Patient was wheezing and was out of breath during Cm phone conversation. Patient is unvaccinated and lives at home with her blind adult son and adult granddaughter. Patient lives in [place] and is Independent with all ADLs and drives. 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 She does all the cooking, cleaning and transportation for her son. Patient also works 4 nights a week at [employer]. Patient uses 2L of O2 at night to help with her COPD but does not use any in the daytime at her baseline. I: [employer] and self pay P: DC home with family when medically stable. No identified DC planning needs at this time but CM department will follow to be able to assist if any DC planning needs arise. Allie Swan RNmarble machine operator. Discharge Planning/Care Management CM Discharge Assessment Start: 09/16/21 08:48 Freq: Status: Active Protocol: Document 09/16/21 08:48 HS (Rec: 09/16/21 08:50 HS [id number]) Discharge Planning Assessment Assigned Commercial Escrow Assistant Allie Swan RNmarble machine operator DPOA/Assigned Designee Name Herminio Pereira - Son Contact Information [phone] Advance Directives? No Advance Directives on File No History Provided By Patient,Medical Record Prior Living Arrangements House Household Members family,children Comment Patient lives with her son Herminio who is blind and she cares for. Patient adult grandiza also lives with them to help care for her father and grandmother. Type of transporation used prior to Drives own vehicle admit Independent with ADL's Yes Is patient alert and oriented? 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 Discharge Plan Home Referrals Initiated None needed Whiteboard Updated in Patient Room with Yes name and ext. # of Commercial Escrow Assistant Review Status In Process Next Review Type Continued Stay Review
[2021-09-16 08:52] VITALS: BP 148/86; PULSE 87
[2021-09-16] MEDS: LEVOTHYROXINE 75 MCG TABLET PO (08:52)
[2021-09-16] MEDS: ASPIRIN EC 81 MG TABLET PO (08:52)
[2021-09-16] MEDS: lisinopriL 20 MG TABLET 40 MG PO (08:52)
[2021-09-16] MEDS: ENOXAPARIN 40 MG/0.4 ML SYRINGE SUBCUT (08:53)
[2021-09-16] MEDS: FUROSEMIDE 20 MG TABLET PO (08:53)
[2021-09-16] MEDS: MULTIVITAMIN 1 TABLET 1 TAB PO (08:53)
[2021-09-16] MEDS: DEXAMETHASONE 10 MG/ML VIAL 6 MG IV (08:53)
[2021-09-16] MEDS: TRIAMTERENE/HCTZ 37.5/25 CAPSULE 1 CAP PO (08:57)
--- NOTE | 2021-09-16 09:25 | PC.NURSE ---
Pt ambulated to the bathroom and brushed her teeth. SpO2 remained between 94-96% on RA. Pt denies SOB, dizziness, CP. Lungs are clear bilaterally. RR 24 while ambulating and 18 at rest.
[2021-09-16] MEDS: TIOTROPIUM BROMIDE 18 MCG 1 EACH INH (09:30)
[2021-09-16 11:59] VITALS: BP 175/88; PULSE 80; RESP 18; TEMP 36.4; O2SAT 94
--- NOTE | 2021-09-16 12:01 | PC.NURSE ---
Patient discharged home. Pt dressed self and is A&)x4. Pt denies SOB, CP, dizziness, nausea. Pt has car in parking lot and plans to pick up operator prescriptions and then go home where she lives with her son. Pt has been given discharge paperwork and instructions and has no questions at this time. Pt has her purse with her which has her home medications and personal belongings.
--- NOTE | 2021-09-16 17:01 | P.DS_ITS ---
History of Present Illness History of Present Illness Chief complaint: THINKS COVID SENT BY [facility] Narrative: This is an 85-year-old female with COPD, dependent on oxygen at night, CAD, hyperlipidemia, Hypothyroidism and hypertension who presents with COVID pneumonia.? She describes to me 2 days of increased dyspnea compared to her usual chronic COPD dyspnea along with fatigue.? She described a week of progressive symptoms in the emergency department.? She is not vaccinated for COVID because she recalls getting pneumonia ?3 times since my 1st pneumonia shot. ?? Also a friend had a Covid infection and reassured her that it was no worse than a head cold.? 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 She has COPD and is on oxygen 2 L at night only.? She has had no fevers, coughing or chest pain.? She is hypoxic into the 80s when ambulating in the ED.? With 2 L nasal cannula she saturates in the mid 90s.? Her troponin is 0.042.? Her chest x-ray shows viral pneumonia changes.? She is agreeable to a hospital admission for treatment of hypoxia along with steroids and remdesivir. Discharge Providers Provider Date of admission: 09/15/21 14:52 Discharge Date: 09/16/21 Primary care physician: Allie Fleming MD Discharge provider: Rudy Corado MD Summary Hospital Course Discharge Diagnosis: 1. Acute on chronic hypoxemic respiratory failured due to COVID pneumonia 2. Acute COPD exacerbation 3. CAD 4. HTN 5. Hyperlipidemia Hospital Course: Ms. Aguilar was admitted with pneumonia and COPD exacerbation. She was requiring minimal nasal canula, 1-2L during her stay. She was started on remdesivir and dexamethasone. She improved very quickly and day of discharge was no longer requiring oxygen. She will be discharged home with azithromycin and prednisone for 5 days. She is recommended to try to isolate from COVID for at least a week. She is encouraged to get a COVID vaccination when her symptoms resolve. Exam Vital Signs (past 8 hours): - 09/16/21 11:59 Temperature 97.5 F L Pulse Rate 80 Respiratory Rate 18 Blood Pressure 175/88 H Pulse Oximetry 94 Oxygen Delivery Method Nasal Cannula Oxygen Flow Rate 2 Narrative Exam Narrative: GEN: no acute distress PULM: clear bilaterally Objective Labs Result Diagrams: 09/16/21 01:53 09/16/21 01:53 Labs: Laboratory Results - last 24 hr 09/15/21 09/15/21 09/16/21 18:20 18:22 01:53 WBC 2.0 L D RBC 5.11 Hgb 14.5 Hct 43.7 MCV 85.7 MCH 28.4 MCHC 33.1 RDW 14.9 H Plt Count 183 Neut % (Auto) 77.7 H Lymph % (Auto) 13.6 L Ritchie % (Auto) 8.2 Eos % (Auto) 0.1 L Baso % (Auto) 0.4 Neut # (Auto) 1600 Lymph # (Auto) 300 L Ritchie # (Auto) 200 Eos # (Auto) 0 Baso # (Auto) 0 Sodium Potassium Chloride Carbon Dioxide BUN Creatinine Estimated GFR BUN/Creatinine Ratio Glucose Calcium Magnesium Total Bilirubin AST ALT Alkaline Phosphatase Total Protein Albumin Globulin Albumin/Globulin Ratio Nasal Screen MRSA (PCR) Negative for mrsa Influenza A (RT-PCR) Flu a negative Influenza B (RT-PCR) Flu b negative 09/16/21 09/16/21 01:53 01:53 WBC RBC Hgb Hct MCV MCH MCHC RDW Plt Count Neut % (Auto) Lymph % (Auto) Ritchie % (Auto) Eos % (Auto) Baso % (Auto) Neut # (Auto) Lymph # (Auto) Ritchie # (Auto) Eos # (Auto) Baso # (Auto) Sodium 133 L Potassium 4.1 Chloride 101 Carbon Dioxide 28 BUN 22 H Creatinine 0.78 Estimated GFR > 60.0 BUN/Creatinine Ratio 28.2 H Glucose 175 H Calcium 9.6 Magnesium 2.0 Total Bilirubin 0.7 AST 30 ALT 19 Alkaline Phosphatase 52 Total Protein 6.3 Albumin 3.6 Globulin 2.7 Albumin/Globulin Ratio 1.3 Nasal Screen MRSA (PCR) Influenza A (RT-PCR) Influenza B (RT-PCR) [facility] Medical History Aneurysm of infrarenal abdominal aorta Bilateral carpal tunnel syndrome CAD (coronary artery disease) COPD (chronic obstructive pulmonary disease) with emphysema Elevated TSH HTN (hypertension) Hyperlipidemia Unstable angina Valvular heart disease Surgical History H/O hysterectomy with oophorectomy H/O three vessel coronary artery bypass Hx of heart artery stent Status post cholecystectomy Family History (Updated 09/15/21 @ 15:39 by Yessica Torres MD) Father Lung cancer Mother COPD (chronic obstructive pulmonary disease) Social History household members: family and children Smoking Status: Former smoker alcohol intake: never Discharge Plan Discharge Plan Patient Disposition: Home Provider Discharge Comment: Ms. Aguilar came in with COVID pneumonia and a COPD flare. She improved with medications (steroids and antibiotics). She will be given a prescription for these. She should avoid interacting with other as much as possible for a 7-10 days to avoid infecting others. Discharge orders & Medications Prescriptions: New azithromycin 500 mg tablet 500 mg PO DAILY 5 Days Qty: 5 0RF prednisone 50 mg tablet 50 mg PO DAILY Qty: 5 0RF Continued aspirin 81 MG tablet,delayed release (DR/EC) 81 mg PO QDAY Qty: 0 0RF lisinopril 40 mg Tablet 40 mg PO DAILY 0RF atorvastatin [Lipitor] 20 mg Tablet 40 mg PO BEDTIME Qty: 180 0RF Label Comments: patient states she forgets to take levothyroxine 75 mcg tablet 75 mcg PO DAILY 0RF albuterol sulfate 90 mcg/actuation HFA aerosol inhaler 2 puff Inhalation Q4H PRN (Reason: Shortness Of Breath) 0RF fluticasone propion-salmeterol [Advair Diskus] 250-50 mcg/dose Blister With Device 1 inh INHALATION BID 0RF Label Comments: patient states on Advair. no record in RX processes. Also states unsure of when and how often she is supposed to use various inhalers. omega 1-jxn-rag-fish oil [Fish Oil] 1,000 mg (120 mg-180 mg) Capsule 1,000 mg PO DAILY 0RF nitroglycerin [Nitrostat] 0.4 mg Tablet, Sublingual 0.4 mg SUBLINGUAL Q5-15M PRN (Reason: Chest Pain) 0RF fluticasone propionate [Flonase Allergy Relief] 50 mcg/actuation [place],Suspension 1 spray Intranasal BID PRN (Reason: Allergy Symptoms) 0RF vitamin E 400 unit Capsule 400 unit PO DAILY 0RF multivitamin Tablet,Chewable 1 tab PO DAILY 0RF ipratropium-albuterol 0.5 mg-3 mg(2.5 mg base)/3 mL solution for nebulization 3 ml INHALATION Q6-8H PRN (Reason: shortness of breath or wheezing) Qty: 90 0RF furosemide [Lasix] 20 mg tablet 20 mg PO BID Qty: 6 0RF Follow up/Referrals: Allie Fleming MD [Primary Care Provider] - Diet/Activity/Treatments Diet: Diet as Tolerated Discharge Data Primary Care Provider: Allie Fleming
== END 2021-09-16 12:15 | disposition home or self-care (01) | DRG 177 ==
LOC: ED 14:49 → AC 14:54 → ICU 09-16 07:49 → AC 09-17 08:22 → ICU 09-17 08:22
PROVIDERS: Admitting Provider Family Medicine; Emergency Provider Emergency Medicine; Family Provider Internal Medicine; PCP Internal Medicine; Referring Provider Emergency Medicine; Visit Provider Family Medicine
DX: U07.1 COVID-19 (principal); J12.82 Pneumonia due to coronavirus disease 2019; J96.01 Acute respiratory failure with hypoxia; J44.1 Chronic obstructive pulmonary disease with (acute) exacerbation; I25.10 Atherosclerotic heart disease of native coronary artery without angina pectoris; I10 Essential (primary) hypertension; E78.5 Hyperlipidemia, unspecified; E03.9 Hypothyroidism, unspecified; Z95.5 Presence of coronary angioplasty implant and graft; Z95.1 Presence of aortocoronary bypass graft; Z87.891 Personal history of nicotine dependence; Z99.81 Dependence on supplemental oxygen
CPT/HCPCS: 36415; 71045; 80053; 82550; 83605; 83735; 83880; 84484; 85025; 87502; 87635; 87797; 93005; 93010; 96361; 96374; 99284; 99406; C9803; A9270; J1100; J1650

== ENCOUNTER 2021-09-25 01:58 | Inpatient (IN) | payer OTHER, SELFPAY ==
[2021-09-15 16:14] VITALS: BMI 23.1
[2021-09-25] VITALS (43 sets, daily range): BP systolic 79–130; BP diastolic 49–67; PULSE 63–101; RESP 18–55; TEMP 36.4–37.6; O2SAT 92–98; BMI 23.4; BMI 23.0
--- NOTE | 2021-09-25 02:21 | DI.RAD.S_ITS ---
PROCEDURE: XR CHEST 1V INDICATIONS: flu-like symptoms TECHNIQUE: One view of the chest was acquired. COMPARISON: [facility], CT, CT ANGIO CHEST PE PROTOCOL, 09/25/2021, 6:20. [facility], CR, XR CHEST 2V, 05/28/2020, 14:37. [facility], CR, XR CHEST 1V, 09/15/2021, 13:00. [facility], CR, XR CHEST 1 VIEW, 08/30/2021, 23:34. [facility], CR, XR CHEST 1V, 09/15/2021, 15:39. FINDINGS: Surgical changes and devices: Sternotomy. Lungs and pleura: Bilateral chronic interstitial prominence consistent with chronic interstitial lung disease. There are subtle superimposed peripheral ground-glass opacities. No pleural effusions or pneumothorax. Mediastinum: Mediastinal contours appear normal. Heart size is mildly increased. Bones and chest wall: No suspicious bony lesions. Overlying soft tissues appear unremarkable. IMPRESSION: 1. Chronic interstitial lung disease. Suspect superimposed pneumonia. Recommend clinical correlation. No significant discrepancy with the restaurant shift leader radiology preliminary report. Dictated by: Magaly Ramirez M.D. on 09/25/2021 at 8:13 Approved by: Magaly Ramirez M.D. on 09/25/2021 at 8:14
[2021-09-25 02:52] LABS: COVID19 -Nasal RAPID POSITIVE (Negative)
[2021-09-25 03:07] LABS: Fractionated Inspired Oxygen 32; HCO3 ABG 28 mmol/L (22-26); Oxygen Saturation ABG 98 % (95-100); PCO2 ABG 37.5 mmHg (35-45); PO2 ABG 89 mmHg (80-100); TCO2 ABG 29 mmol/L (21-31)
[2021-09-25 03:08] LABS: pH ABG 7.49 (7.35-7.45)
[2021-09-25 03:15] LABS: Add Manual Diff / Slide Review NO; Basophils Absolute Auto 0 /uL (0-100); Basophils Percent Auto 0.6 % (0-2); Eosinophils Absolute Auto 0 /uL (0-450); Eosinophils Percent Auto 0.2 % (2-4); Hematocrit 42.5 % (36-46); Hemoglobin 14.4 g/dL (12.0-16.0); Lymphocytes Absolute Auto 500 /uL (1100-4500); Lymphocytes Percent Auto 7.3 % (25-40); Mean Corpuscular HGB Conc 33.8 % (30-36); Mean Corpuscular Hemoglobin 28.4 PG (26-34); Mean Corpuscular Volume 83.8 fL (80-100); Monocytes Absolute Auto 600 /uL (0-900); Monocytes Percent Auto 9.1 % (3-14); Neutrophils Absolute Auto 5900 /uL (1500-7000); Neutrophils Percent Auto 82.8 % (50-75); Platelet Count 168 X10^3/uL (150-400); Red Blood Cell Count 5.08 X10^6/uL (4.0-5.2); Red Cell Distribution Width 14.8 % (11.6-14.8); White Blood Cell Count 7.1 X10^3/uL (4.5-11.0)
--- NOTE | 2021-09-25 03:26 | ED.SOB ---
HPI - SOB/Dyspnea <Leland Lukasz, DO - Last Filed: 09/25/21 17:20> General Chief Complaint: Shortness of Breath/Dyspnea Stated Complaint: CP Time Seen by Provider: 09/25/21 02:05 Source: patient and EMS Mode of arrival: EMS Limitations: no limitations History of Present Illness HPI Narrative: 85-year-old female former smoker with history of COPD (on home oxygen 3 L at night), hypertension, unstable angina presents by EMS for evaluation of increasing fatigue, shortness of breath, cough, difficulty breathing a decreased appetite for the past few days. She was recently seen and evaluated and admitted with COVID pneumonia and discharged the following day. She was sent home on a steroid taper and a Zithromax and states that she continues to feel worse. She is short of breath follow-up time, worse with exertion. She denies any chest pain but has had rather persistent nausea. She had an abnormal stress test on August 30, 2019 to that was consistent with moderate reversible ischemia. Patient had abnormal ischemic change during the echo, heart catheterization was recommended Related Data Home Medications Medication Instructions Recorded Confirmed aspirin 81 mg tablet,delayed 81 mg PO QDAY #0 07/11/17 09/25/21 release lisinopril 40 mg tablet 40 mg PO DAILY 04/19/18 09/25/21 albuterol sulfate 90 mcg/actuation 2 puff INHALATION Q4H PRN 07/07/18 09/25/21 aerosol inhaler fluticasone 250 mcg-salmeterol 50 1 inh INHALATION BID 07/07/18 09/25/21 mcg/dose blistr powdr for inhalation (Advair Diskus) fluticasone propionate 50 1 spray INTRANASAL BID PRN 07/07/18 09/25/21 mcg/actuation nasal spray,suspension (Flonase Allergy Relief) levothyroxine 75 mcg tablet 75 mcg PO DAILY 07/07/18 09/25/21 multivitamin 1 tab PO DAILY 07/07/18 09/25/21 nitroglycerin 0.4 mg sublingual 0.4 mg SUBLINGUAL Q5-15M PRN 07/07/18 09/25/21 tablet (Nitrostat) omega 2-epl-wbl-fish oil 1,000 mg 1,000 mg PO DAILY 07/07/18 09/25/21 (120 mg-180 mg) capsule (Fish Oil) vitamin E 400 unit capsule 400 unit PO DAILY 07/07/18 09/25/21 Previous Rx's Medication Instructions Recorded atorvastatin 20 mg tablet (Lipitor) 40 mg PO BEDTIME #180 tab 04/20/18 ipratropium 0.5 mg-albuterol 3 mg 3 ml INHALATION Q6-8H PRN #90 ml 11/04/18 (2.5 mg base)/3 mL nebulization soln furosemide 20 mg tablet (Lasix) 20 mg PO BID #6 tab 01/16/19 Allergies Allergy/AdvReac Type Severity Reaction Status Date / Time acarbose Allergy Intermediate Abdominal Verified 09/15/21 12:59 Pain amlodipine Allergy Intermediate Verified 09/15/21 12:59 chlorthalidone Allergy Intermediate Redness of Verified 09/15/21 12:59 Skin doxazosin [From Cardura] Allergy Intermediate Rash Verified 09/15/21 12:59 doxycycline Allergy Intermediate Rash Verified 09/15/21 12:59 gemfibrozil Allergy Intermediate Rash Verified 09/15/21 12:59 levofloxacin Allergy Intermediate Rash Verified 09/15/21 12:59 losartan Allergy Intermediate Rash Verified 09/15/21 12:59 metoprolol Allergy Intermediate Verified 09/15/21 12:59 montelukast [From Singulair] Allergy Intermediate Difficulty Verified 09/15/21 12:59 Breathing nifedipine Allergy Intermediate Chills Verified 09/15/21 12:59 Sulfa (Sulfonamide Allergy Intermediate rash Verified 09/15/21 12:59 Antibiotics) sulfamethoxazole Allergy Intermediate Rash Verified 09/15/21 12:59 [From Bactrim] trimethoprim [From Bactrim] Allergy Intermediate Rash Verified 09/15/21 12:59 budesonide [From Symbicort] Allergy Mild Anxiety Verified 09/15/21 12:59 carvedilol Allergy Mild Rash Verified 09/15/21 12:59 choline fenofibrate Allergy Mild Gastrointestinal Verified 09/15/21 12:59 [From Trilipix] Upset formoterol [From Symbicort] Allergy Mild Anxiety Verified 09/15/21 12:59 Review of Systems <Leland Lal DO - Last Filed: 09/25/21 17:20> Review of Systems Narrative: GENERAL: Denies chills, fatigue, malaise, fever, sweats. HEENT: Denies sinus pain, ear pain, sore throat, difficulty swallowing, dizziness. RESPIRATORY: Denies dyspnea, cough, wheezing, hemoptysis, sputum. CARDIOVASCULAR: Denies chest pain, palpitations, orthopnea, edema, GASTROINTESTINAL: Denies nausea, vomiting, abdominal pain, diarrhea, constipation, melena. : Denies dysuria, frequency, incontinence, hematuria, urinary retention. MUSCULOSKELETAL: denies weakness, joint pain, or bony pain SKIN: Denies rash, skin lesions, or other NEUROLOGIC: Denies weakness, headache, numbness, change in speech, confusion, seizures, incoordination. PSYCHIATRIC: No concerning psychosocial issues. 12 point review of systems is negative except for those stated above Patient History <Leland Lal DO - Last Filed: 09/25/21 17:20> Medical History (Updated 09/25/21 @ 10:35 by Jean Ta DO) Aneurysm of infrarenal abdominal aorta Bilateral carpal tunnel syndrome CAD (coronary artery disease) COPD (chronic obstructive pulmonary disease) with emphysema Elevated TSH HTN (hypertension) Hyperlipidemia Unstable angina Valvular heart disease Surgical History H/O hysterectomy with oophorectomy H/O three vessel coronary artery bypass Hx of heart artery stent Status post cholecystectomy Family History (Updated 09/15/21 @ 15:39 by Yessica Torres MD) Father Lung cancer Mother COPD (chronic obstructive pulmonary disease) Social History household members: family and children Smoking Status: Former smoker alcohol intake: never Smoking Status: Former smoker alcohol intake frequency: 0-2 drinks per day Substance Use Type: does not use Exam <Leland Lal DO - Last Filed: 09/25/21 17:20> Narrative Exam Narrative: GENERAL: [85] year old patient appears stated age. Well-developed patient, in mild distress. HEAD: Atraumatic. Normocephalic. EYES: Pupils equal round and reactive. Extraocular motions intact. No scleral icterus. No injection or drainage. ENT: Nose without bleeding, purulent drainage. Throat without erythema, tonsillar hypertrophy or exudate. Airway patent. NECK: Trachea midline. Non tender CARDIOVASCULAR: Regular rate and rhythm without murmurs, gallops, or rubs. RESPIRATORY: Prolonged expiratory phase, with wheezes throughout, crackles in bases. Increased work of breathing GASTROINTESTINAL: Abdomen soft, non-tender, nondistended. EXTREMITIES: No edema or joint tenderness. BACK: Nontender without deformity or crepitance. No flank tenderness. NEURO: AOx3. SKIN: No rash or erythema of visible areas Initial Vital Signs Initial Vital Signs: Vital Signs Temperature 99.6 F 09/25/21 02:13 Pulse Rate 100 H 09/25/21 02:13 Respiratory Rate 25 H 09/25/21 02:13 Blood Pressure 88/49 L 09/25/21 02:13 Pulse Oximetry 95 09/25/21 02:13 <Jean Ta, DO - Last Filed: 09/25/21 12:30> Initial Vital Signs Initial Vital Signs: Vital Signs Temperature 99.6 F 09/25/21 02:13 Pulse Rate 100 H 09/25/21 02:13 Respiratory Rate 25 H 09/25/21 02:13 Blood Pressure 88/49 L 09/25/21 02:13 Pulse Oximetry 95 09/25/21 02:13 Course <Leland Lal, DO - Last Filed: 09/25/21 17:20> Orders Ordered: ED Orders 09/26/21 05:00 Hemoglobin and Hematocrit DAILY 09/26/21 08:15 Partial Thromboplastin Time DAILY 09/27/21 08:15 Partial Thromboplastin Time DAILY 09/28/21 08:15 Partial Thromboplastin Time DAILY 09/29/21 08:15 Partial Thromboplastin Time DAILY 09/30/21 08:15 Partial Thromboplastin Time DAILY 10/01/21 08:15 Partial Thromboplastin Time DAILY Albuterol (Albuterol 2.5 Mg/3 Ml Neb (Adult)) 2.5 mg INH [id number] ROLANDA Albuterol (Albuterol 2.5 Mg/3 Ml Neb (Adult)) 2.5 mg INH Q2H PRN PRN Reason: Shortness Of Breath Albuterol/Ipratropium (Albuterol/Ipratropium 3 Ml Ampul) 3 ml INH Q6H PRN PRN Reason: shortness of breath or wheezing Aspirin (Aspirin Ec 81 Mg Tablet) 81 mg PO DAILY ROLANDA Atorvastatin Calcium (Atorvastatin 20 Mg Tablet) 40 mg PO BEDTIME ROLANDA Budesonide (Budesonide 0.5 Mg/2 Ml Neb) 0.5 mg INH RTBID ROLANDA Fish Oil (Fish Oil 1,000 Mg Capsule) 1,000 mg PO DAILY ROLANDA Heparin Sodium/Dextrose (Heparin Drip) 25,000 unit in 500 mls @ 12.84 mls/hr IV CONT ROLANDA; Protocol Levothyroxine Sodium (Levothyroxine 75 Mcg Tablet) 75 mcg PO 0600 ROLANDA Multivitamins (Multivitamin 1 Tablet) 1 tab PO DAILY ROLANDA Vitamin E (Vitamin E 400 Unit Capsule) 400 unit PO DAILY ROLANDA Discontinued Medications Albuterol (Albuterol 2.5 Mg/3 Ml Neb (Adult)) 2.5 mg INH Q6H PRN PRN Reason: shortness of breath or wheezing Albuterol (Albuterol 2.5 Mg/3 Ml Neb (Adult)) 2.5 mg INH Q4H PRN PRN Reason: Shortness Of Breath Aspirin (Aspirin 81 Mg Chew Tab) 324 mg PO NOW ONE Stop: 09/25/21 03:50 Last Admin: 09/25/21 03:57 Dose: Not Given Documented by: NADYA Clopidogrel Bisulfate (Clopidogrel 75 Mg Tablet) 300 mg PO NOW ONE Stop: 09/25/21 15:59 Last Admin: 09/25/21 16:24 Dose: Not Given Documented by: SAMANTHA Heparin Sodium (Porcine) (Heparin 5,000 Unit/Ml Vial) 4,000 unit IV NOW ONE Stop: 09/25/21 08:10 Last Admin: 09/25/21 08:53 Dose: 4,000 unit Documented by: KATYA Sodium Chloride (Normal Saline 0.9%) 1,000 mls @ 1,000 mls/hr IV BOLUS ONE Stop: 09/25/21 04:22 Last Infusion: 09/25/21 05:16 Dose: 0 mls/hr Documented by: Admin: 09/25/21 03:34 Dose: 1,000 mls/hr Documented by: MARCUS Heparin Sodium/Dextrose (Heparin Drip) 25,000 unit in 500 mls @ 20 mls/hr IV CONT ROLANDA; Protocol Last Titration: 09/25/21 16:00 Dose: 0 units/hr, 0 mls/hr Documented by: Titration: 09/25/21 12:25 Dose: 970 units/hr, 19.4 mls/hr Documented by: Admin: 09/25/21 08:54 Dose: 970 units/hr, 19.4 mls/hr Documented by: KATYA Methylprednisolone (Methylprednisolone 125 Mg/2 Ml Vial) 125 mg IV NOW ONE Stop: 09/25/21 03:23 Last Admin: 09/25/21 03:34 Dose: 125 mg Documented by: MARCUS Vital Signs Vital signs: Vital Signs - 8 hr 09/25/21 09:30 09/25/21 09:45 09/25/21 10:00 Pulse Rate 66 67 68 Respiratory Rate 22 20 21 Blood Pressure 101/55 L 97/50 L 100/53 L Pulse Oximetry 93 92 92 09/25/21 10:15 09/25/21 10:30 09/25/21 10:45 Pulse Rate 68 66 63 Respiratory Rate 32 H 32 H 30 H Blood Pressure 110/59 L 106/57 L 106/61 Pulse Oximetry 95 94 97 09/25/21 11:00 09/25/21 11:01 Pulse Rate 63 63 Respiratory Rate 27 H 38 H Blood Pressure 124/67 Pulse Oximetry 93 93 <Jean Ta, - Last Filed: 09/25/21 12:30> Orders Ordered: ED Orders 09/26/21 05:00 Hemoglobin and Hematocrit DAILY 09/26/21 08:15 Partial Thromboplastin Time DAILY 09/27/21 08:15 Partial Thromboplastin Time DAILY 09/28/21 08:15 Partial Thromboplastin Time DAILY 09/29/21 08:15 Partial Thromboplastin Time DAILY 09/30/21 08:15 Partial Thromboplastin Time DAILY 10/01/21 08:15 Partial Thromboplastin Time DAILY Albuterol (Albuterol 2.5 Mg/3 Ml Neb (Adult)) 2.5 mg INH [id number] ROLANDA Albuterol (Albuterol 2.5 Mg/3 Ml Neb (Adult)) 2.5 mg INH Q2H PRN PRN Reason: Shortness Of Breath Albuterol/Ipratropium (Albuterol/Ipratropium 3 Ml Ampul) 3 ml INH Q6H PRN PRN Reason: shortness of breath or wheezing Aspirin (Aspirin Ec 81 Mg Tablet) 81 mg PO DAILY ROLANDA Atorvastatin Calcium (Atorvastatin 20 Mg Tablet) 40 mg PO BEDTIME ROLANDA Budesonide (Budesonide 0.5 Mg/2 Ml Neb) 0.5 mg INH RTBID ROLANDA Fish Oil (Fish Oil 1,000 Mg Capsule) 1,000 mg PO DAILY ROLANDA Heparin Sodium/Dextrose (Heparin Drip) 25,000 unit in 500 mls @ 12.84 mls/hr IV CONT ROLANDA; Protocol Levothyroxine Sodium (Levothyroxine 75 Mcg Tablet) 75 mcg PO 0600 ROLANDA Multivitamins (Multivitamin 1 Tablet) 1 tab PO DAILY ROLANDA Vitamin E (Vitamin E 400 Unit Capsule) 400 unit PO DAILY ROLANDA Discontinued Medications Albuterol (Albuterol 2.5 Mg/3 Ml Neb (Adult)) 2.5 mg INH Q6H PRN PRN Reason: shortness of breath or wheezing Albuterol (Albuterol 2.5 Mg/3 Ml Neb (Adult)) 2.5 mg INH Q4H PRN PRN Reason: Shortness Of Breath Aspirin (Aspirin 81 Mg Chew Tab) 324 mg PO NOW ONE Stop: 09/25/21 03:50 Last Admin: 09/25/21 03:57 Dose: Not Given Documented by: NADYA Clopidogrel Bisulfate (Clopidogrel 75 Mg Tablet) 300 mg PO NOW ONE Stop: 09/25/21 15:59 Last Admin: 09/25/21 16:24 Dose: Not Given Documented by: SAMANTHA Heparin Sodium (Porcine) (Heparin 5,000 Unit/Ml Vial) 4,000 unit IV NOW ONE Stop: 09/25/21 08:10 Last Admin: 09/25/21 08:53 Dose: 4,000 unit Documented by: KATYA Sodium Chloride (Normal Saline 0.9%) 1,000 mls @ 1,000 mls/hr IV BOLUS ONE Stop: 09/25/21 04:22 Last Infusion: 09/25/21 05:16 Dose: 0 mls/hr Documented by: Admin: 09/25/21 03:34 Dose: 1,000 mls/hr Documented by: MARCUS Heparin Sodium/Dextrose (Heparin Drip) 25,000 unit in 500 mls @ 20 mls/hr IV CONT ROLANDA; Protocol Last Titration: 09/25/21 16:00 Dose: 0 units/hr, 0 mls/hr Documented by: Titration: 09/25/21 12:25 Dose: 970 units/hr, 19.4 mls/hr Documented by: Admin: 09/25/21 08:54 Dose: 970 units/hr, 19.4 mls/hr Documented by: KATYA Methylprednisolone (Methylprednisolone 125 Mg/2 Ml Vial) 125 mg IV NOW ONE Stop: 09/25/21 03:23 Last Admin: 09/25/21 03:34 Dose: 125 mg Documented by: MARCUS Vital Signs Vital signs: Vital Signs - 8 hr 09/25/21 09:30 09/25/21 09:45 09/25/21 10:00 Pulse Rate 66 67 68 Respiratory Rate 22 20 21 Blood Pressure 101/55 L 97/50 L 100/53 L Pulse Oximetry 93 92 92 09/25/21 10:15 09/25/21 10:30 09/25/21 10:45 Pulse Rate 68 66 63 Respiratory Rate 32 H 32 H 30 H Blood Pressure 110/59 L 106/57 L 106/61 Pulse Oximetry 95 94 97 09/25/21 11:00 09/25/21 11:01 Pulse Rate 63 63 Respiratory Rate 27 H 38 H Blood Pressure 124/67 Pulse Oximetry 93 93 MDM - SOB/Dyspnea <Leland Lal DO - Last Filed: 09/25/21 17:20> Lab Data Result diagrams: 09/25/21 02:55 09/25/21 02:55 Labs: Lab Results 09/25/21 09/25/21 09/25/21 Range/Units 02:25 02:50 02:55 WBC (4.5-11.0) X10^3/uL RBC (4.0-5.2) X10^6/uL Hgb (12.0-16.0) g/dL Hct (36-46) % MCV (80-100) fL MCH (26-34) PG MCHC (30-36) % RDW (11.6-14.8) % Plt Count (150-400) X10^3/uL Neut % (Auto) (50-75) % Lymph % (Auto) (25-40) % [place] % (Auto) (3-14) % Eos % (Auto) (2-4) % Baso % (Auto) (0-2) % Neut # (Auto) (8133-4412) /uL Lymph # (Auto) (2786-5767) /uL [place] # (Auto) (0-900) /uL Eos # (Auto) (0-450) /uL Baso # (Auto) (0-100) /uL APTT (26.4-36.2) SECONDS D-Dimer 837 H (<230) ng/mL ABG pH 7.49 H (7.35-7.45) ABG pCO2 37.5 (35-45) mmHg ABG pO2 89 (80-100) mmHg ABG HCO3 28 H (22-26) mmol/L ABG Total CO2 29 (21-31) mmol/L ABG O2 Saturation 98 (95-100) % ABG Base Excess 5.0 H (-2-2) mmol/L FiO2 32 Sodium (137-145) mmol/L Potassium (3.4-5.1) mmol/L Chloride (98-107) mmol/L Carbon Dioxide (22-32) mmol/L BUN (7-17) mg/dL Creatinine (0.52-1.04) mg/dL Estimated GFR (>60) mL/min BUN/Creatinine Ratio (6-22) Glucose (80-110) mg/dL Lactate (0.7-2.1) mmol/L Calcium (8.4-10.2) mg/dL Ferritin (11-264) ng/mL Total Bilirubin (0.2-1.3) mg/dL AST (14-36) IU/L ALT (<35) IU/L Alkaline Phosphatase (38-126) U/L Lactate Dehydrogenase (313-618) U/L Total Creatine Kinase (30-135) U/L CK-MB (CK-2) CK-MB (CK-2) Rel Index Troponin I (0.01-0.034) ng/mL C-Reactive Protein (<1.0) mg/dL NT-Pro-B Natriuret Pep (<450) pg/mL Total Protein (6.3-8.2) g/dL Albumin (3.5-5.0) g/dL Globulin (1.7-4.1) g/dL Albumin/Globulin Ratio (1.0-2.8) Procalcitonin (<0.5) ng/mL SARS-CoV-2 (PCR) Positive H (Negative) 09/25/21 09/25/21 09/25/21 Range/Units 02:55 02:55 02:55 WBC 7.1 (4.5-11.0) X10^3/uL RBC 5.08 (4.0-5.2) X10^6/uL Hgb 14.4 (12.0-16.0) g/dL Hct 42.5 (36-46) % MCV 83.8 (80-100) fL MCH 28.4 (26-34) PG MCHC 33.8 (30-36) % RDW 14.8 (11.6-14.8) % Plt Count 168 (150-400) X10^3/uL Neut % (Auto) 82.8 H (50-75) % Lymph % (Auto) 7.3 L (25-40) % [place] % (Auto) 9.1 (3-14) % Eos % (Auto) 0.2 L (2-4) % Baso % (Auto) 0.6 (0-2) % Neut # (Auto) 5900 (1744-5218) /uL Lymph # (Auto) 500 L (0528-3778) /uL [place] # (Auto) 600 (0-900) /uL Eos # (Auto) 0 (0-450) /uL Baso # (Auto) 0 (0-100) /uL APTT (26.4-36.2) SECONDS D-Dimer (<230) ng/mL ABG pH (7.35-7.45) ABG pCO2 (35-45) mmHg ABG pO2 (80-100) mmHg ABG HCO3 (22-26) mmol/L ABG Total CO2 (21-31) mmol/L ABG O2 Saturation (95-100) % ABG Base Excess (-2-2) mmol/L FiO2 Sodium 131 L (137-145) mmol/L Potassium 3.7 (3.4-5.1) mmol/L Chloride 99 (98-107) mmol/L Carbon Dioxide 28 (22-32) mmol/L BUN 32 H (7-17) mg/dL Creatinine 1.43 H (0.52-1.04) mg/dL Estimated GFR 35.0 L (>60) mL/min BUN/Creatinine Ratio 22.4 H (6-22) Glucose 117 H (80-110) mg/dL Lactate (0.7-2.1) mmol/L Calcium 9.2 (8.4-10.2) mg/dL Ferritin 271 H (11-264) ng/mL Total Bilirubin 1.1 (0.2-1.3) mg/dL AST 34 (14-36) IU/L ALT 17 (<35) IU/L Alkaline Phosphatase 47 (38-126) U/L Lactate Dehydrogenase 486 (313-618) U/L Total Creatine Kinase 37 (30-135) U/L CK-MB (CK-2) TNP CK-MB (CK-2) Rel Index TNP Troponin I 0.400 H* (0.01-0.034) ng/mL C-Reactive Protein 2.0 H (<1.0) mg/dL NT-Pro-B Natriuret Pep 1890 H (<450) pg/mL Total Protein 5.5 L (6.3-8.2) g/dL Albumin 3.0 L (3.5-5.0) g/dL Globulin 2.5 (1.7-4.1) g/dL Albumin/Globulin Ratio 1.2 (1.0-2.8) Procalcitonin 0.31 (<0.5) ng/mL SARS-CoV-2 (PCR) (Negative) 09/25/21 09/25/21 09/25/21 Range/Units 02:55 08:15 08:15 WBC (4.5-11.0) X10^3/uL RBC (4.0-5.2) X10^6/uL Hgb (12.0-16.0) g/dL Hct (36-46) % MCV (80-100) fL MCH (26-34) PG MCHC (30-36) % RDW (11.6-14.8) % Plt Count (150-400) X10^3/uL Neut % (Auto) (50-75) % Lymph % (Auto) (25-40) % [place] % (Auto) (3-14) % Eos % (Auto) (2-4) % Baso % (Auto) (0-2) % Neut # (Auto) (5754-5888) /uL Lymph # (Auto) (1482-8661) /uL [place] # (Auto) (0-900) /uL Eos # (Auto) (0-450) /uL Baso # (Auto) (0-100) /uL APTT 29 (26.4-36.2) SECONDS D-Dimer (<230) ng/mL ABG pH (7.35-7.45) ABG pCO2 (35-45) mmHg ABG pO2 (80-100) mmHg ABG HCO3 (22-26) mmol/L ABG Total CO2 (21-31) mmol/L ABG O2 Saturation (95-100) % ABG Base Excess (-2-2) mmol/L FiO2 Sodium (137-145) mmol/L Potassium (3.4-5.1) mmol/L Chloride (98-107) mmol/L Carbon Dioxide (22-32) mmol/L BUN (7-17) mg/dL Creatinine (0.52-1.04) mg/dL Estimated GFR (>60) mL/min BUN/Creatinine Ratio (6-22) Glucose (80-110) mg/dL Lactate 1.2 (0.7-2.1) mmol/L Calcium (8.4-10.2) mg/dL Ferritin (11-264) ng/mL Total Bilirubin (0.2-1.3) mg/dL AST (14-36) IU/L ALT (<35) IU/L Alkaline Phosphatase (38-126) U/L Lactate Dehydrogenase (313-618) U/L Total Creatine Kinase 36 (30-135) U/L CK-MB (CK-2) TNP CK-MB (CK-2) Rel Index TNP Troponin I 0.224 H* (0.01-0.034) ng/mL C-Reactive Protein (<1.0) mg/dL NT-Pro-B Natriuret Pep (<450) pg/mL Total Protein (6.3-8.2) g/dL Albumin (3.5-5.0) g/dL Globulin (1.7-4.1) g/dL Albumin/Globulin Ratio (1.0-2.8) Procalcitonin (<0.5) ng/mL SARS-CoV-2 (PCR) (Negative) Imaging Data CT scan - chest: Radiologist's Impression: Negative for pulmonary embolism. Patchy atypical pneumonia superimposed on emphysema with some honeycomb fibrotic lung changes and subsegmental atelectasis, mild left ventricular enlargement. Coronary artery disease ECG Data Interpretation: Sinus rhythm, rate 93. Right bundle-branch block, no obvious ST segmental elevations or depressions. No significant change from prior MDM Narrative Medical decision making narrative: Patient presents with a few days of increasing fatigue and exertional shortness of breath. There is some report that she was having pain while home but there has been no pain here in the department and patient denies any pain but is not the greatest historian. Patient has multiple comorbidities likely contributing to her presentation. Elements of history and physical exam would suggest an exacerbation of COPD as well as ongoing post COVID symptoms. Additionally, she has an impressive bump in her troponin. Pulmonary embolism considered but CT angiogram was unremarkable and demonstrates no PE <Jean Ta, DO - Last Filed: 09/25/21 12:30> Lab Data Labs: Lab Results 09/25/21 09/25/21 09/25/21 Range/Units 02:25 02:50 02:55 WBC (4.5-11.0) X10^3/uL RBC (4.0-5.2) X10^6/uL Hgb (12.0-16.0) g/dL Hct (36-46) % MCV (80-100) fL MCH (26-34) PG MCHC (30-36) % RDW (11.6-14.8) % Plt Count (150-400) X10^3/uL Neut % (Auto) (50-75) % Lymph % (Auto) (25-40) % [place] % (Auto) (3-14) % Eos % (Auto) (2-4) % Baso % (Auto) (0-2) % Neut # (Auto) (7307-5303) /uL Lymph # (Auto) (2003-6832) /uL [place] # (Auto) (0-900) /uL Eos # (Auto) (0-450) /uL Baso # (Auto) (0-100) /uL APTT (26.4-36.2) SECONDS D-Dimer 837 H (<230) ng/mL ABG pH 7.49 H (7.35-7.45) ABG pCO2 37.5 (35-45) mmHg ABG pO2 89 (80-100) mmHg ABG HCO3 28 H (22-26) mmol/L ABG Total CO2 29 (21-31) mmol/L ABG O2 Saturation 98 (95-100) % ABG Base Excess 5.0 H (-2-2) mmol/L FiO2 32 Sodium (137-145) mmol/L Potassium (3.4-5.1) mmol/L Chloride (98-107) mmol/L Carbon Dioxide (22-32) mmol/L BUN (7-17) mg/dL Creatinine (0.52-1.04) mg/dL Estimated GFR (>60) mL/min BUN/Creatinine Ratio (6-22) Glucose (80-110) mg/dL Lactate (0.7-2.1) mmol/L Calcium (8.4-10.2) mg/dL Ferritin (11-264) ng/mL Total Bilirubin (0.2-1.3) mg/dL AST (14-36) IU/L ALT (<35) IU/L Alkaline Phosphatase (38-126) U/L Lactate Dehydrogenase (313-618) U/L Total Creatine Kinase (30-135) U/L CK-MB (CK-2) CK-MB (CK-2) Rel Index Troponin I (0.01-0.034) ng/mL C-Reactive Protein (<1.0) mg/dL NT-Pro-B Natriuret Pep (<450) pg/mL Total Protein (6.3-8.2) g/dL Albumin (3.5-5.0) g/dL Globulin (1.7-4.1) g/dL Albumin/Globulin Ratio (1.0-2.8) Procalcitonin (<0.5) ng/mL SARS-CoV-2 (PCR) Positive H (Negative) 09/25/21 09/25/21 09/25/21 Range/Units 02:55 02:55 02:55 WBC 7.1 (4.5-11.0) X10^3/uL RBC 5.08 (4.0-5.2) X10^6/uL Hgb 14.4 (12.0-16.0) g/dL Hct 42.5 (36-46) % MCV 83.8 (80-100) fL MCH 28.4 (26-34) PG MCHC 33.8 (30-36) % RDW 14.8 (11.6-14.8) % Plt Count 168 (150-400) X10^3/uL Neut % (Auto) 82.8 H (50-75) % Lymph % (Auto) 7.3 L (25-40) % [place] % (Auto) 9.1 (3-14) % Eos % (Auto) 0.2 L (2-4) % Baso % (Auto) 0.6 (0-2) % Neut # (Auto) 5900 (0780-2621) /uL Lymph # (Auto) 500 L (1953-0334) /uL [place] # (Auto) 600 (0-900) /uL Eos # (Auto) 0 (0-450) /uL Baso # (Auto) 0 (0-100) /uL APTT (26.4-36.2) SECONDS D-Dimer (<230) ng/mL ABG pH (7.35-7.45) ABG pCO2 (35-45) mmHg ABG pO2 (80-100) mmHg ABG HCO3 (22-26) mmol/L ABG Total CO2 (21-31) mmol/L ABG O2 Saturation (95-100) % ABG Base Excess (-2-2) mmol/L FiO2 Sodium 131 L (137-145) mmol/L Potassium 3.7 (3.4-5.1) mmol/L Chloride 99 (98-107) mmol/L Carbon Dioxide 28 (22-32) mmol/L BUN 32 H (7-17) mg/dL Creatinine 1.43 H (0.52-1.04) mg/dL Estimated GFR 35.0 L (>60) mL/min BUN/Creatinine Ratio 22.4 H (6-22) Glucose 117 H (80-110) mg/dL Lactate (0.7-2.1) mmol/L Calcium 9.2 (8.4-10.2) mg/dL Ferritin 271 H (11-264) ng/mL Total Bilirubin 1.1 (0.2-1.3) mg/dL AST 34 (14-36) IU/L ALT 17 (<35) IU/L Alkaline Phosphatase 47 (38-126) U/L Lactate Dehydrogenase 486 (313-618) U/L Total Creatine Kinase 37 (30-135) U/L CK-MB (CK-2) TNP CK-MB (CK-2) Rel Index TNP Troponin I 0.400 H* (0.01-0.034) ng/mL C-Reactive Protein 2.0 H (<1.0) mg/dL NT-Pro-B Natriuret Pep 1890 H (<450) pg/mL Total Protein 5.5 L (6.3-8.2) g/dL Albumin 3.0 L (3.5-5.0) g/dL Globulin 2.5 (1.7-4.1) g/dL Albumin/Globulin Ratio 1.2 (1.0-2.8) Procalcitonin 0.31 (<0.5) ng/mL SARS-CoV-2 (PCR) (Negative) 09/25/21 09/25/21 09/25/21 Range/Units 02:55 08:15 08:15 WBC (4.5-11.0) X10^3/uL RBC (4.0-5.2) X10^6/uL Hgb (12.0-16.0) g/dL Hct (36-46) % MCV (80-100) fL MCH (26-34) PG MCHC (30-36) % RDW (11.6-14.8) % Plt Count (150-400) X10^3/uL Neut % (Auto) (50-75) % Lymph % (Auto) (25-40) % [place] % (Auto) (3-14) % Eos % (Auto) (2-4) % Baso % (Auto) (0-2) % Neut # (Auto) (3775-5122) /uL Lymph # (Auto) (1076-1832) /uL [place] # (Auto) (0-900) /uL Eos # (Auto) (0-450) /uL Baso # (Auto) (0-100) /uL APTT 29 (26.4-36.2) SECONDS D-Dimer (<230) ng/mL ABG pH (7.35-7.45) ABG pCO2 (35-45) mmHg ABG pO2 (80-100) mmHg ABG HCO3 (22-26) mmol/L ABG Total CO2 (21-31) mmol/L ABG O2 Saturation (95-100) % ABG Base Excess (-2-2) mmol/L FiO2 Sodium (137-145) mmol/L Potassium (3.4-5.1) mmol/L Chloride (98-107) mmol/L Carbon Dioxide (22-32) mmol/L BUN (7-17) mg/dL Creatinine (0.52-1.04) mg/dL Estimated GFR (>60) mL/min BUN/Creatinine Ratio (6-22) Glucose (80-110) mg/dL Lactate 1.2 (0.7-2.1) mmol/L Calcium (8.4-10.2) mg/dL Ferritin (11-264) ng/mL Total Bilirubin (0.2-1.3) mg/dL AST (14-36) IU/L ALT (<35) IU/L Alkaline Phosphatase (38-126) U/L Lactate Dehydrogenase (313-618) U/L Total Creatine Kinase 36 (30-135) U/L CK-MB (CK-2) TNP CK-MB (CK-2) Rel Index TNP Troponin I 0.224 H* (0.01-0.034) ng/mL C-Reactive Protein (<1.0) mg/dL NT-Pro-B Natriuret Pep (<450) pg/mL Total Protein (6.3-8.2) g/dL Albumin (3.5-5.0) g/dL Globulin (1.7-4.1) g/dL Albumin/Globulin Ratio (1.0-2.8) Procalcitonin (<0.5) ng/mL SARS-CoV-2 (PCR) (Negative) Imaging Data CT scan - chest: Radiologist's Impression: [address] [address] [address] Scan Report Signed Patient: Lindsay Aguilar MR#: [id number] : 1935 Acct:[id number] Age/Sex: 85 / F Date of Service: 09/25/21 Loc: ED Accession Number: [id number] ?? Procedure: CT angio chest PE protocol Ordering Provider: Leland Lal D.O. PROCEDURE:? CT ANGIO CHEST PE PROTOCOL ? INDICATIONS:? elevated D dimer, troponin, BNP, recent hospitalization ? TECHNIQUE:? After the administration of intravenous contrast, 2 mm thick sections acquired from the pulmonary apices to the posterior costophrenic angles.? 3-dimensional maximum intensity projection (MIP) coronal and sagittal reformats were then acquired through the thorax.? For radiation dose reduction, the following was used:? automated exposure control, adjustment of mA and/or kV according to patient size.? ? COMPARISON:? [facility], CR, XR CHEST 1V, 09/25/2021, 2:24.? [facility], CR, XR CHEST 1V, 06/30/2021, 13:26.? [facility], CT, CT ANGIO CHEST PE PROTOCOL, 01/16/2019, 10:44. ? FINDINGS:? Image quality:? Excellent.? ? Pulmonary arteries:? Pulmonary arteries are normal in size, and demonstrate no intraluminal filling defects to suggest central pulmonary embolism.? ? Lungs and pleura:? There is a right upper lobe pulmonary nodule, new since the last CT. ? Nodule 1:? 5 mm; right upper lobe anterior; solid. ? Bilateral subpleural septal thickening and pulmonary fibrosis.? Moderate emphysema.? Mild superimposed peripheral ground-glass infiltrates bilaterally. ? No pleural effusions or pneumothorax.? Central and peripheral airways are patent.? ? Mediastinum:? Heart size is normal, without pericardial effusion.? There is mild enlargement of the left ventricle.? Moderate coronary artery calcification.? No mediastinal or hilar adenopathy.? ? Mild enlargement of the distal aortic arch measuring 3.4 cm in diameter.? Moderate severe aortic calcification. ? Esophagus is normal in caliber.? There is a moderate-sized hiatal hernia.? Concentric thickening of the GE junction. ? Bones and chest wall:? No suspicious bony lesions.? Ribs and thoracic spine appear intact throughout.? Thyroid gland is normal.? No axillary or supraclavicular adenopathy.? ? Abdomen:? Visualized upper abdominal solid organs appear normal in the early arterial phase of enhancement.? ? IMPRESSION:? ? 1. No evidence for pulmonary embolism. 2. Enlargement of the left ventricle. 3. Moderate coronary artery atherosclerosis. 4. Mild aneurysm of distal aortic arch. 5. Hiatal hernia and concentric thickening of the gastroesophageal junction.? Recommend EGD for follow-up evaluation. 6. A 5 mm nodule in the right upper lobe.? Please see enclosed follow-up recommendation. 7. Bilateral interstitial thickening and pulmonary fibrosis.? There is mild peripheral ground-glass infiltrates bilaterally.? Cannot rule out superimposed acute pneumonic process. 8. Moderate emphysema.? ? No significant discrepancy with the tool chaser radiology preliminary report. ? ? ? Fleischner Society criteria for SOLID lung nodule followup.? Nodule size (mm)Low-risk patientHigh-risk patient?4No follow-up neededFollow-up at 12 mo; if no change, no further follow-up>[id number]-jq CT at 12 mo; if no change, no further follow-up needed.Initial follow-up CT at 6-12 mo, then 18-24 mo if no change.? >6-8Initial follow-up CT at 6-12 mo, then 18-24 mo if no change. Initial follow-up CT at 3-6 mo, then 9-12 mo and 24 mo if no change.? >8Follow-up CT at 3, 9, 24 mo.? Or PET and/or biopsy.Same as for low-risk pts.? ? ? Dictated by: Magaly Ramirez M.D. on 09/25/2021 at 7:44 ? ? Approved by: Magaly Ramirez M.D. on 09/25/2021 at 8:33 MDM Narrative Medical decision making narrative: Patient presents with a few days of increasing fatigue and exertional shortness of breath. There is some report that she was having pain while home but there has been no pain here in the department and patient denies any pain but is not the greatest historian. Patient has multiple comorbidities likely contributing to her presentation. Elements of history and physical exam would suggest an exacerbation of COPD as well as ongoing post COVID symptoms. Additionally, she has an impressive bump in her troponin. Pulmonary embolism considered but CT angiogram was unremarkable and demonstrates no PE Dr ta: Received turned over. Reviewed history and physical and labs and workup up to this point. Patient's CT scan shows no signs of pulmonary embolism. Patient was started on heparin was given an aspirin. Her repeat troponin show some improvement. Discussion was had with Dr. patel with Cardiology who stated that there was no indication for emergent cardiac catheterization. Discussed the case with Dr. Kelley with internal medicine who will admit for further evaluation and treatment. Discussed the need for this with the patient she expressed understanding as well. Discharge Plan Departure Patient Disposition: Admitted as Observation Clinical Impression: Non-ST elevation VT (NSTEMI), Acute kidney injury, COVID-19 Admit Date/Time: 09/25/21 11:03 Admit Provider: Shiva Kelley
[2021-09-25 03:30] LABS: Alanine Aminotransferase 17 IU/L (<35); Albumin Globulin Ratio 1.2 (1.0-2.8); Alkaline Phosphatase 47 U/L (38-126); Aspartate Aminotransferase 34 IU/L (14-36); BUN Creatinine Ratio 22.4 (6-22); Bilirubin Total 1.1 mg/dL (0.2-1.3); Blood Urea Nitrogen 32 mg/dL (7-17); Calcium 9.2 mg/dL (8.4-10.2); Carbon Dioxide 28 mmol/L (22-32); Chloride 99 mmol/L (98-107); Creatine Kinase 37 U/L (30-135); Globulin 2.5 g/dL (1.7-4.1); Glucose 117 mg/dL (80-110); HEMOLYSIS < 15 (0-50); Lactate Dehydrogenase 486 U/L (313-618); Potassium 3.7 mmol/L (3.4-5.1); Sodium 131 mmol/L (137-145); Total Protein 5.5 g/dL (6.3-8.2)
[2021-09-25] MEDS: methylPREDNISolone 125 MG/2 ML VIAL IV (03:34)
[2021-09-25] MEDS: SODIUM CHLORIDE 0.9% 1,000 ML 1000 ML IV (03:34)
[2021-09-25 03:35] LABS: Lactate (Lactic Acid) 1.2 mmol/L (0.7-2.1)
[2021-09-25 03:40] LABS: NT-proBNP (BNP-Adult 18+) 1890 pg/mL (<450)
[2021-09-25 03:44] LABS: Procalcitonin 0.31 ng/mL (<0.5)
[2021-09-25 04:03] LABS: Ferritin 271 ng/mL (11-264)
[2021-09-25 04:35] LABS: D Dimer 837 ng/mL (<230)
--- NOTE | 2021-09-25 06:10 | DI.CT.S_ITS ---
PROCEDURE: CT ANGIO CHEST PE PROTOCOL INDICATIONS: elevated D dimer, troponin, BNP, recent hospitalization TECHNIQUE: After the administration of intravenous contrast, 2 mm thick sections acquired from the pulmonary apices to the posterior costophrenic angles. 3-dimensional maximum intensity projection (MIP) coronal and sagittal reformats were then acquired through the thorax. For radiation dose reduction, the following was used: automated exposure control, adjustment of mA and/or kV according to patient size. COMPARISON: [facility], CR, XR CHEST 1V, 09/25/2021, 2:24. [facility], CR, XR CHEST 1V, 06/30/2021, 13:26. [facility], CT, CT ANGIO CHEST PE PROTOCOL, 01/16/2019, 10:44. FINDINGS: Image quality: Excellent. Pulmonary arteries: Pulmonary arteries are normal in size, and demonstrate no intraluminal filling defects to suggest central pulmonary embolism. Lungs and pleura: There is a right upper lobe pulmonary nodule, new since the last CT. Nodule 1: 5 mm; right upper lobe anterior; solid. Bilateral subpleural septal thickening and pulmonary fibrosis. Moderate emphysema. Mild superimposed peripheral ground-glass infiltrates bilaterally. No pleural effusions or pneumothorax. Central and peripheral airways are patent. Mediastinum: Heart size is normal, without pericardial effusion. There is mild enlargement of the left ventricle. Moderate coronary artery calcification. No mediastinal or hilar adenopathy. Mild enlargement of the distal aortic arch measuring 3.4 cm in diameter. Moderate severe aortic calcification. Esophagus is normal in caliber. There is a moderate-sized hiatal hernia. Concentric thickening of the GE junction. Bones and chest wall: No suspicious bony lesions. Ribs and thoracic spine appear intact throughout. Thyroid gland is normal. No axillary or supraclavicular adenopathy. Abdomen: Visualized upper abdominal solid organs appear normal in the early arterial phase of enhancement. IMPRESSION: 1. No evidence for pulmonary embolism. 2. Enlargement of the left ventricle. 3. Moderate coronary artery atherosclerosis. 4. Mild aneurysm of distal aortic arch. 5. Hiatal hernia and concentric thickening of the gastroesophageal junction. Recommend EGD for follow-up evaluation. 6. A 5 mm nodule in the right upper lobe. Please see enclosed follow-up recommendation. 7. Bilateral interstitial thickening and pulmonary fibrosis. There is mild peripheral ground-glass infiltrates bilaterally. Cannot rule out superimposed acute pneumonic process. 8. Moderate emphysema. No significant discrepancy with the overnight stocker radiology preliminary report. Fleischner Society criteria for SOLID lung nodule followup. Nodule size (mm)Low-risk patientHigh-risk patient?4No follow-up neededFollow-up at 12 mo; if no change, no further follow-up>3-3Bemozz-nd CT at 12 mo; if no change, no further follow-up needed.Initial follow-up CT at 6-12 mo, then 18-24 mo if no change. >6-8Initial follow-up CT at 6-12 mo, then 18-24 mo if no change. Initial follow-up CT at 3-6 mo, then 9-12 mo and 24 mo if no change. >8Follow-up CT at 3, 9, 24 mo. Or PET and/or biopsy.Same as for low-risk pts. Dictated by: Magaly Ramirez M.D. on 09/25/2021 at 7:44 Approved by: Magaly Ramirez M.D. on 09/25/2021 at 8:33
[2021-09-25 08:43] LABS: PTT Partial Thromboplastin Tim 29 SECONDS (26.4-36.2)
[2021-09-25 08:51] LABS: Creatine Kinase 36 U/L (30-135)
[2021-09-25] MEDS: HEPARIN 5,000 UNIT/ML VIAL 4000 UNIT IV (08:53)
[2021-09-25] MEDS: HEPARIN DRIP 25,000 UNIT/500 ML IV.SOLN 19.4 UNIT IV (08:54)
[2021-09-25 09:26] LABS: Troponin I 0.224 ng/mL (0.01-0.034)
--- NOTE | 2021-09-25 13:13 | PC.NURSE ---
Addendum entered by Dwaine Granger R.N. 09/25/21 13:19: Dr. Kelley notified patient has arrived and in to see patient at this time. Original Note: Patient received from ER to room 229, oriented to room and call light. Patient has heparin gtt infusing from ER at 19.4ml/hr (18units/kg/hr) to left forearm IV. Patient states she is getting her appetite back. Denies acute shortness of breath, denies chest pain. States she was suppose to have appointment with a bulk folder recently but had to cancel appointment because of her COVID sickness.
--- NOTE | 2021-09-25 15:12 | P.HP_ITS ---
History of Present Illness History of Present Illness Chief complaint: CP covid+ Narrative: 85yo female with a hx of CAD status post triple-bypass CABG (2006), HFrEF (EF 35-40%), likely ischemic in etiology, hypothyroidism, hypertension, and COPD emphysema that requires 2 liters of oxygen at night that presents with not feeling well. The patient reports living with family in [place], who help take care of her. She states that early this morning, she wasn't feeling well and looked unwell to her family, that is why they called an ambulance. She denies CP at that time, or current, active CP. She endorses having MD's in the past, and denies that this feels like that. She denies doing anything physically or emotionally taxing at this time. She denies any recent coronary stenting history. She denies n/v, abd pain, fever/chills, cough, URI sxs, worsening SOB, night sweats. She does endorse, however, having low appetite over the past couple of days. She believes this is because of being COVID positive. She denies there being any respiratory component to her COVID. The patient has a remote hx of smoking cigarettes, having quit in 1969. She has a 17-pack yr hx. She denies EtOH or other drug use. PSH is positive for the aforementioned CABG, along with cholecystectomy and tonsillar adenoids removed as a child. 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 Patient History Medical History (Updated 09/25/21 @ 10:35 by Jean Ta DO) Aneurysm of infrarenal abdominal aorta Bilateral carpal tunnel syndrome CAD (coronary artery disease) COPD (chronic obstructive pulmonary disease) with emphysema Elevated TSH HTN (hypertension) Hyperlipidemia Unstable angina Valvular heart disease Surgical History H/O hysterectomy with oophorectomy H/O three vessel coronary artery bypass Hx of heart artery stent Status post cholecystectomy Family & Social History Family History (Updated 09/15/21 @ 15:39 by Yessica Torres MD) Father Lung cancer Mother COPD (chronic obstructive pulmonary disease) Social History: household members family,children Safety & Behavioral: Feels Safe in Current Yes Environment Suicidal Ideation Description None Suicide Plan Description No Plan Tobacco & Substance use: Tobacco type cigarettes Smoking Status Former smoker alcohol intake never alcohol intake frequency 0-2 drinks per day Substance Use Type does not use Meds Home Medications and Allergies Home Medications Medication Instructions Recorded Confirmed Type aspirin 81 mg tablet,delayed 81 mg PO QDAY #0 07/11/17 09/25/21 History release lisinopril 40 mg tablet 40 mg PO DAILY 04/19/18 09/25/21 History atorvastatin 20 mg tablet (Lipitor) 40 mg PO BEDTIME #180 tab 04/20/18 09/25/21 Rx albuterol sulfate 90 mcg/actuation 2 puff INHALATION Q4H PRN 07/07/18 09/25/21 History aerosol inhaler fluticasone 250 mcg-salmeterol 50 1 inh INHALATION BID 07/07/18 09/25/21 History mcg/dose blistr powdr for inhalation (Advair Diskus) fluticasone propionate 50 1 spray INTRANASAL BID PRN 07/07/18 09/25/21 History mcg/actuation nasal spray,suspension (Flonase Allergy Relief) levothyroxine 75 mcg tablet 75 mcg PO DAILY 07/07/18 09/25/21 History multivitamin 1 tab PO DAILY 07/07/18 09/25/21 History nitroglycerin 0.4 mg sublingual 0.4 mg SUBLINGUAL Q5-15M PRN 07/07/18 09/25/21 History tablet (Nitrostat) omega 7-wmu-kad-fish oil 1,000 mg 1,000 mg PO DAILY 07/07/18 09/25/21 History (120 mg-180 mg) capsule (Fish Oil) vitamin E 400 unit capsule 400 unit PO DAILY 07/07/18 09/25/21 History ipratropium 0.5 mg-albuterol 3 mg 3 ml INHALATION Q6-8H PRN #90 ml 11/04/18 09/25/21 Rx (2.5 mg base)/3 mL nebulization soln furosemide 20 mg tablet (Lasix) 20 mg PO BID #6 tab 01/16/19 09/25/21 Rx Allergies Allergy/AdvReac Type Severity Reaction Status Date / Time acarbose Allergy Intermediate Abdominal Verified 09/15/21 12:59 Pain amlodipine Allergy Intermediate Verified 09/15/21 12:59 chlorthalidone Allergy Intermediate Redness of Verified 09/15/21 12:59 Skin doxazosin [From Cardura] Allergy Intermediate Rash Verified 09/15/21 12:59 doxycycline Allergy Intermediate Rash Verified 09/15/21 12:59 gemfibrozil Allergy Intermediate Rash Verified 09/15/21 12:59 levofloxacin Allergy Intermediate Rash Verified 09/15/21 12:59 losartan Allergy Intermediate Rash Verified 09/15/21 12:59 metoprolol Allergy Intermediate Verified 09/15/21 12:59 montelukast [From Singulair] Allergy Intermediate Difficulty Verified 09/15/21 12:59 Breathing nifedipine Allergy Intermediate Chills Verified 09/15/21 12:59 Sulfa (Sulfonamide Allergy Intermediate rash Verified 09/15/21 12:59 Antibiotics) sulfamethoxazole Allergy Intermediate Rash Verified 09/15/21 12:59 [From Bactrim] trimethoprim [From Bactrim] Allergy Intermediate Rash Verified 09/15/21 12:59 budesonide [From Symbicort] Allergy Mild Anxiety Verified 09/15/21 12:59 carvedilol Allergy Mild Rash Verified 09/15/21 12:59 choline fenofibrate Allergy Mild Gastrointestinal Verified 09/15/21 12:59 [From Trilipix] Upset formoterol [From Symbicort] Allergy Mild Anxiety Verified 09/15/21 12:59 Review of Systems Constitutional Comments: General fatigue, tiredness. Denies fever/chills, night sweats, weight loss. Eyes Comments: Denies vision changes. ENT Comments: Denies URI sxs. Cardiovascular Comments: Denies CP, palpitations, arm/jaw pain. Respiratory Comments: Denies new cough, worsening SOB. Gastrointestinal Comments: Denies abd pain, n/v/d, flank tenderness. Genitourinary Comments: Denies urinary sxs. Exam Vital Signs (past 8 hours): - 09/25/21 08:00 09/25/21 08:22 09/25/21 08:30 Temperature Pulse Rate 76 72 71 Respiratory Rate 20 33 H 21 Blood Pressure 107/55 L 105/56 L Pulse Oximetry 94 97 96 09/25/21 08:45 09/25/21 09:00 09/25/21 09:15 Temperature Pulse Rate 70 69 68 Respiratory Rate 24 20 20 Blood Pressure 103/50 L 100/55 L 102/52 L Pulse Oximetry 97 95 94 09/25/21 09:30 09/25/21 09:45 09/25/21 10:00 Temperature Pulse Rate 66 67 68 Respiratory Rate 22 20 21 Blood Pressure 101/55 L 97/50 L 100/53 L Pulse Oximetry 93 92 92 09/25/21 10:15 09/25/21 10:30 09/25/21 10:45 Temperature Pulse Rate 68 66 63 Respiratory Rate 32 H 32 H 30 H Blood Pressure 110/59 L 106/57 L 106/61 Pulse Oximetry 95 94 97 09/25/21 11:00 09/25/21 11:01 09/25/21 11:16 Temperature Pulse Rate 63 63 63 Respiratory Rate 27 H 38 H 36 H Blood Pressure 124/67 119/57 L Pulse Oximetry 93 93 93 09/25/21 11:30 09/25/21 11:45 09/25/21 12:00 Temperature Pulse Rate 71 68 64 Respiratory Rate 29 H 35 H 55 H Blood Pressure 125/58 L 121/57 L Pulse Oximetry 93 92 93 09/25/21 12:45 Temperature 97.6 F Pulse Rate 80 Respiratory Rate 21 Blood Pressure 129/63 Pulse Oximetry 95 Oxygen Delivery Method Nasal Cannula Oxygen Flow Rate 2 Const Other: Patient laying in bed comfortably upon my entering the room, watching TV, and in no apparent, acute distress. Eyes Other: No scleral icterus appreciated. Neck Other: No carotid bruits appreciated. Resp Other: Faint end-expiratory wheezes appreciated to mid and lower lung zones bilaterally. Cardio Other: RRR. S1 and S2 appreciated with no additional heart sounds heard. Faint systolic ejection murmur heard best over the left upper sternal border. GI Other: Soft, non-distended, non-tender. Bowel sounds present. Extrem Other: Palpable and bilaterally equal radial and dorsalis pedis pulses. Objective Labs Result Diagrams: 09/25/21 02:55 09/25/21 02:55 Labs: Laboratory Results - last 24 hr 09/25/21 09/25/21 09/25/21 02:25 02:50 02:55 WBC RBC Hgb Hct MCV MCH MCHC RDW Plt Count Neut % (Auto) Lymph % (Auto) [place] % (Auto) Eos % (Auto) Baso % (Auto) Neut # (Auto) Lymph # (Auto) [place] # (Auto) Eos # (Auto) Baso # (Auto) APTT D-Dimer 837 H ABG pH 7.49 H ABG pCO2 37.5 ABG pO2 89 ABG HCO3 28 H ABG Total CO2 29 ABG O2 Saturation 98 ABG Base Excess 5.0 H FiO2 32 Sodium Potassium Chloride Carbon Dioxide BUN Creatinine Estimated GFR BUN/Creatinine Ratio Glucose Lactate Calcium Ferritin Total Bilirubin AST ALT Alkaline Phosphatase Lactate Dehydrogenase Total Creatine Kinase CK-MB (CK-2) CK-MB (CK-2) Rel Index Troponin I C-Reactive Protein NT-Pro-B Natriuret Pep Total Protein Albumin Globulin Albumin/Globulin Ratio Procalcitonin SARS-CoV-2 (PCR) Positive H 09/25/21 09/25/21 09/25/21 02:55 02:55 02:55 WBC 7.1 RBC 5.08 Hgb 14.4 Hct 42.5 MCV 83.8 MCH 28.4 MCHC 33.8 RDW 14.8 Plt Count 168 Neut % (Auto) 82.8 H Lymph % (Auto) 7.3 L [place] % (Auto) 9.1 Eos % (Auto) 0.2 L Baso % (Auto) 0.6 Neut # (Auto) 5900 Lymph # (Auto) 500 L [place] # (Auto) 600 Eos # (Auto) 0 Baso # (Auto) 0 APTT D-Dimer ABG pH ABG pCO2 ABG pO2 ABG HCO3 ABG Total CO2 ABG O2 Saturation ABG Base Excess FiO2 Sodium 131 L Potassium 3.7 Chloride 99 Carbon Dioxide 28 BUN 32 H Creatinine 1.43 H Estimated GFR 35.0 L BUN/Creatinine Ratio 22.4 H Glucose 117 H Lactate Calcium 9.2 Ferritin 271 H Total Bilirubin 1.1 AST 34 ALT 17 Alkaline Phosphatase 47 Lactate Dehydrogenase 486 Total Creatine Kinase 37 CK-MB (CK-2) TNP CK-MB (CK-2) Rel Index TNP Troponin I 0.400 H* C-Reactive Protein 2.0 H NT-Pro-B Natriuret Pep 1890 H Total Protein 5.5 L Albumin 3.0 L Globulin 2.5 Albumin/Globulin Ratio 1.2 Procalcitonin 0.31 SARS-CoV-2 (PCR) 09/25/21 09/25/21 09/25/21 02:55 08:15 08:15 WBC RBC Hgb Hct MCV MCH MCHC RDW Plt Count Neut % (Auto) Lymph % (Auto) [place] % (Auto) Eos % (Auto) Baso % (Auto) Neut # (Auto) Lymph # (Auto) [place] # (Auto) Eos # (Auto) Baso # (Auto) APTT 29 D-Dimer ABG pH ABG pCO2 ABG pO2 ABG HCO3 ABG Total CO2 ABG O2 Saturation ABG Base Excess FiO2 Sodium Potassium Chloride Carbon Dioxide BUN Creatinine Estimated GFR BUN/Creatinine Ratio Glucose Lactate 1.2 Calcium Ferritin Total Bilirubin AST ALT Alkaline Phosphatase Lactate Dehydrogenase Total Creatine Kinase 36 CK-MB (CK-2) TNP CK-MB (CK-2) Rel Index TNP Troponin I 0.224 H* C-Reactive Protein NT-Pro-B Natriuret Pep Total Protein Albumin Globulin Albumin/Globulin Ratio Procalcitonin SARS-CoV-2 (PCR) Assessment & Plan Assessment & Plan narrative: Assessment: 1. NSTEMI, acute 2. HFrEF (EF 35-30%), likely ischemic etiology, chronic 3. Pre-renal AZUL, likely dehydration-related 4. Hypertension 5. Hx of COPD, emphysema, stable 6. 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 Positive COVID, asymptomatic 8. Hypothyroidism Plan: 1. Troponin peaked at 0.4, downtrending. Of note, patient with positive myocardial perfusion study in Aug 2021. Aspirin 324 mg one-time administered. IV heparin on-board. Atorvastatin already at high-intensity dose. Will give clopidogrel 300 mg one-time. Cardiology consulted in ER: they recommend medical management for now. 2. Will order echocardiogram. Holding home Lasix for now given pre-renal AZUL. 3. Likely brought on by decreased fluid intake over the past several days, due to positive COVID. Holding Lasix as above. Recommending increased PO intake of fluids by patient. Holding home lisinopril for now. 4. Holding home lisinopril for now given the above. Can likely resume once renal function improves. 5. Will resume home maintenance inhaler therapy. She uses 2 liters oxygen at night at home. 6. Possible ILD, based on lung imaging. Patient denies hx of SLE, RA, or other autoimmune diseases. She's been strongly encouraged to establish care with an outpatient needle leader. 7. Likely acquired at home. Patient is unvaccinated. There does not appear to be a respiratory component. 8. Will resume home levothyroxine 75 mg daily. VTE prophylaxis: IV heparin, as per problem 1. Disposition: Likely discharge home after completing 48 hrs of medical management for NSTEMI. Time Spent With Patient Critical Care time: I spent a total of [] minutes of critical care time on this patient's care today; this time is exclusive of procedural time. Quality VTE Deep Vein Thrombosis/Pulmonary Embolism Present on Admission: No MIPS - Admit I confirm the patient?s Advance Care Plan is present, Code status is documented, Surrogate decision maker is in patient?s record [If Yes, STOP here]: Yes
[2021-09-25 16:00] LABS: PTT Partial Thromboplastin Tim > 400 SECONDS (26.4-36.2)
--- NOTE | 2021-09-25 16:34 | PC.NURSE ---
PTT drawn at 1500, resulted >400. Dr. Kelley notified, and wants cardiac heparin infusion protocol followed. Heparin gtt to be held for 1 hour then rate decreased by 300 units per hour. Next PTT to be scheduled for [address] Kelley also has concerns over giving plavix with PTT >400 at this time, and wants current one time dose held, confirmed with pharmacy and agrees to wait and continue to monitor next PTT as scheduled. Patient resting in bed comfortably at this time. Reports she now has an appetite and is eager to eat. Re-iterated importance of fall precautions and bleeding risk precautions, call light within reach and bed alarm on for safety.
[2021-09-25] MEDS: HEPARIN DRIP 25,000 UNIT/500 ML IV.SOLN 13.4 UNIT IV (17:00)
--- NOTE | 2021-09-25 18:01 | DIET.CONS ---
Dietary Consultation Note Admission Date: 09/25/2021 11:03 Assessment: 85y F admitted for CP and covid+ status referred to nutrition for poor POs and dehydration. Pt reports poor POs and dehydration secondary to covid+ status and feeling poorly at home. Once admitted, pt reports increased hunger. Ht: 152.4 cm Wt: 53.5 kg BMI: 23.0 UBW: Last BM: 09/25/21 (09/25/21 13:04) MNA: 10 Apolinar Score: 20 Diet: 09/25/21 Dinner Heart Healthy Diet Diet Modifications: Enlive bid Sodium Level: 2 gm Sodium Labs: RBC 5.08 X10^6/uL (4.0-5.2) 09/25/21 02:55 Hgb 14.4 g/dL (12.0-16.0) 09/25/21 02:55 Hct 42.5 % (36-46) 09/25/21 02:55 Creatinine 1.43 mg/dL (0.52-1.04) H 09/25/21 02:55 Lactate 1.2 mmol/L (0.7-2.1) 09/25/21 02:55 Ferritin 271 ng/mL (11-264) H 09/25/21 02:55 NT-Pro-B Natriuret Pep 1890 pg/mL (<450) H 09/25/21 02:55 Nutrition Diagnosis: difficulty eating r/t covid19 PNA aeb pt admitted reporting poor POs and dehydration. Interventions: 1. Recc ONS Ensure Enlive bid to encourage hydration, micro- and macronutrient repletion. Monitoring/Evaluations: POs, ONS tolerance Electronically Signed by: Shaneka Sanabria 09/25/21 18:01 Clinical Dietitian [address] [id number]
[2021-09-25] MEDS: ALBUTEROL 2.5 MG/3 ML NEB (ADULT) INH ×2 (19:35→23:42)
[2021-09-25] MEDS: BUDESONIDE 0.5 MG/2 ML NEB INH (19:35)
[2021-09-25] MEDS: ATORVASTATIN 20 MG TABLET 40 MG PO (20:39)
[2021-09-26] VITALS (40 sets, daily range): BP systolic 119–198; BP diastolic 59–97; PULSE 63–118; RESP 22–51; TEMP 36.4–37.4; O2SAT 65–100
[2021-09-26 01:11] LABS: PTT Partial Thromboplastin Tim 166 SECONDS (26.4-36.2)
[2021-09-26 05:18] LABS: Add Manual Diff / Slide Review NO; Basophils Absolute Auto 0 /uL (0-100); Basophils Percent Auto 0.1 % (0-2); Eosinophils Absolute Auto 0 /uL (0-450); Hematocrit 39.6 % (36-46); Hemoglobin 13.2 g/dL (12.0-16.0); Lymphocytes Absolute Auto 200 /uL (1100-4500); Lymphocytes Percent Auto 7.5 % (25-40); Mean Corpuscular HGB Conc 33.4 % (30-36); Mean Corpuscular Hemoglobin 28.1 PG (26-34); Mean Corpuscular Volume 84.2 fL (80-100); Monocytes Absolute Auto 300 /uL (0-900); Monocytes Percent Auto 9.7 % (3-14); Neutrophils Absolute Auto 2600 /uL (1500-7000); Neutrophils Percent Auto 82.7 % (50-75); Platelet Count 120 X10^3/uL (150-400); Red Cell Distribution Width 14.4 % (11.6-14.8); White Blood Cell Count 3.1 X10^3/uL (4.5-11.0)
[2021-09-26 05:34] LABS: BUN Creatinine Ratio 30.8 (6-22); Blood Urea Nitrogen 28 mg/dL (7-17); Calcium 9.2 mg/dL (8.4-10.2); Carbon Dioxide 31 mmol/L (22-32); Chloride 101 mmol/L (98-107); Estimated Glomerular Filt Rate 58.9 mL/min (>60); Glucose 153 mg/dL (80-110); HEMOLYSIS 19 (0-50); Magnesium 1.9 mg/dL (1.6-2.3); Potassium 3.4 mmol/L (3.4-5.1); Sodium 133 mmol/L (137-145)
[2021-09-26] MEDS: LEVOTHYROXINE 75 MCG TABLET PO (06:12)
[2021-09-26] MEDS: ALBUTEROL 2.5 MG/3 ML NEB (ADULT) INH ×3 (08:09→19:42)
[2021-09-26] MEDS: BUDESONIDE 0.5 MG/2 ML NEB INH ×2 (08:09→19:42)
[2021-09-26] MEDS: FISH OIL 1,000 MG CAPSULE 1000 MG PO (09:55)
[2021-09-26] MEDS: POTASSIUM CHLORIDE 20 MEQ TAB 40 MEQ PO (09:55)
[2021-09-26] MEDS: VITAMIN E 400 UNIT CAPSULE PO (09:55)
[2021-09-26] MEDS: ASPIRIN EC 81 MG TABLET PO (09:55)
[2021-09-26] MEDS: MULTIVITAMIN 1 TABLET 1 TAB PO (09:55)
[2021-09-26 10:35] LABS: PTT Partial Thromboplastin Tim 61 SECONDS (26.4-36.2)
[2021-09-26 11:40] LABS: Acinetobacter baumannii Not Detected (Not Detect); Candida albicans Not Detected (Not Detect); Candida glabrata Not Detected (Not Detect); Candida krusei Not Detected (Not Detect); Candida parapsilosis Not Detected (Not Detect); Candida tropicalis Not Detected (Not Detect); E. coli Not Detected (Not Detect); Enterobacter cloacae complex Not Detected (Not Detect); Enterobacteriaceae species Not Detected (Not Detect); Enterococcus species Not Detected (Not Detect); Haemophilus influenzae Not Detected (Not Detect); KPC (carbapenem-resist gene) Not Detected (Not Detect); Listeria monocytogenes Not Detected (Not Detect); Methicillin-resistant gene Not Detected (Not Detect); Neisseria meningitidis Not Detected (Not Detect); Proteus species Not Detected (Not Detect); Pseudomonas aeruginosa Not Detected (Not Detect); Serratia marcescens Not Detected (Not Detect); Staphylococcus species Not Detected (Not Detect); Streptococcus agalactiae (Gr B Not Detected (Not Detect); Streptococcus pneumonia Not Detected (Not Detect); Streptococcus pyogenes (Gr A) Not Detected (Not Detect); Streptococcus species Not Detected (Not Detect); Vancomycin-rest genes A/B Not Detected (Not Detect)
--- NOTE | 2021-09-26 15:08 | CM.DANOTE ---
Patient is an 85 yo female who was admitted on 09/25/21 for COVID+. Pt has [employer] for insurance and her PCP is Dr. Allie Fleming. EMR was reviewed. 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 Pt was admitted a couple weeks ago with COVID+ complications and discharged home with family. SW called into pt's room phone due to COVID+ precautions and explained role and she confirms that she lives in [place] with her son Herminio (who is blind, but quite independent, but pt helps son out some). Pt is quite active and independent at baseline and works 4 days a week for 4 hour shifts as a [employer]. Pt denies any hx of HH or SNF and states she thinks her Dtr is her DPOA but cannot remember and Dtr does not live in [facility]. Pt also has another son, Bunny, who lives in [place] and can provide transport at d/c. Pt states her blind son Herminio can assist some at home and pt states she has a big friend group that will help me out if needed. Pt preference is to d/c home as soon as she is medically stable and does not anticipate any needs. PT/OT ordered and pending. Plan: SW to follow closely for PT/OT eval and recommendations to confirm safe plan of home with son and supportive friends nearby and any further identified needs. Pt has home O2 through [employer] at baseline. BLAS Torres Discharge Planning/Care Management Advanced directive, confirm from FAMILY Start: 09/25/21 13:09 Freq: Q24H Status: Active Protocol: Document 09/26/21 13:09 HCW (Rec: 09/26/21 13:36 HCW [id number]) Advance Directive, confirm on record Time 13:36 Person contacted patient Copy received No CM Discharge Assessment Start: 09/26/21 15:01 Freq: Status: Active Protocol: Document 09/26/21 15:01 BF (Rec: 09/26/21 15:08 BF [id number]) Discharge Planning Assessment Assigned Mental Health Aides Teacher BLAS Bhandari Advance Directives? Yes Advance Directives on File No History Provided By Patient,Medical Record Has Patient been admitted in last 30 No days? Prior Living Arrangements House Household Members family,children Type of transporation used prior to Drives own vehicle admit Independent with ADL's Yes Is patient alert and oriented? Yes Caregiver for Another Yes: blind son Seven at home Community Services used prior to Oxygen Therapy admission: Comment 2LO2 at [place] Comment uses o2 at night...vendor: Bharathi Barriers to Discharge No Comment expect home when stable for same. Discharge Plan Home Community Services Oxygen Therapy Transportation Arrangement Likely son Bunny who lives in [place] can transport home Referrals Initiated None needed Additional Comment Pending PT/OT eval and recommendations Review Status In Process Please Provide Date Initial DC 09/26/21 Assessment Was Performed Next Review Type Continued Stay Review
[2021-09-26] MEDS: CLOPIDOGREL 75 MG TABLET 300 MG PO (15:45)
--- NOTE | 2021-09-26 19:52 | PM.PN.1 ---
Subjective Subjective Interval history: Patient reports no recurrence of her CP. She also deneis any other active sxs. She reports good PO intake, with good output, too. Exam Vital Signs (past 8 hours): - 09/26/21 14:57 09/26/21 15:05 09/26/21 16:00 Temperature 97.6 F 98.3 F Pulse Rate 80 Respiratory Rate 24 Blood Pressure 158/68 H Pulse Oximetry 95 94 Oxygen Delivery Method Nasal Cannula Oxygen Flow Rate 2 Narrative Exam Narrative: Const Other: Patient laying in bed comfortably upon my entering the room, watching TV, and in no apparent, acute distress. Eyes Other: No scleral icterus appreciated. Neck Other: No carotid bruits appreciated. Resp Other: Faint end-expiratory wheezes appreciated to mid and lower lung zones bilaterally. Cardio Other: RRR. S1 and S2 appreciated with no additional heart sounds heard. Faint systolic ejection murmur heard best over the left upper sternal border. GI Other: Soft, non-distended, non-tender. Bowel sounds present. Extrem Other: Palpable and bilaterally equal radial and dorsalis pedis pulses. Objective Labs Result Diagrams: 09/26/21 04:45 09/26/21 04:45 Labs: Laboratory Results - last 24 hr 09/25/21 09/26/21 09/26/21 02:55 00:34 04:45 WBC 3.1 L D RBC 4.70 Hgb 13.2 Hct 39.6 MCV 84.2 MCH 28.1 MCHC 33.4 RDW 14.4 Plt Count 120 L Neut % (Auto) 82.7 H Lymph % (Auto) 7.5 L [place]ham % (Auto) 9.7 Eos % (Auto) 0.0 L Baso % (Auto) 0.1 Neut # (Auto) 2600 Lymph # (Auto) 200 L [place] # (Auto) 300 Eos # (Auto) 0 Baso # (Auto) 0 APTT 166 H* D Sodium Potassium Chloride Carbon Dioxide BUN Creatinine Estimated GFR BUN/Creatinine Ratio Glucose Calcium Magnesium A. baumannii (PCR) Not detected Xin albicans (PCR) Not detected C. glabrata (PCR) Not detected C. krusei (PCR) Not detected C. parapsilosis (PCR) Not detected C. tropicalis (PCR) Not detected Enterobacteriac sp PCR Not detected E. cloacae complex PCR Not detected Enterococcus sp PCR Not detected E. coli (PCR) Not detected H. influenzae (PCR) Not detected Klebsiella oxytoca PCR Not detected Klebsiella pneumoniae Not detected List. monocytogenes PCR Not detected N. meningitidis (PCR) Not detected Proteus species (PCR) Not detected Serratia marcescens PCR Not detected Staphylococcus sp PCR Not detected Staph aureus (PCR) Not detected mecA-Methicil Res Gene Not detected Streptococcus sp PCR Not detected Group A Strep (PCR) Not detected Strep agalactiae (PCR) Not detected Strep pneumoniae (PCR) Not detected P. aeruginosa (PCR) Not detected Ritchie/B-Vanco Res Genes Not detected KPC-Carbap Res Gene PCR Not detected 09/26/21 09/26/21 04:45 08:15 WBC RBC Hgb Hct MCV MCH MCHC RDW Plt Count Neut % (Auto) Lymph % (Auto) Dillingham % (Auto) Eos % (Auto) Baso % (Auto) Neut # (Auto) Lymph # (Auto) Dillingham # (Auto) Eos # (Auto) Baso # (Auto) APTT 61 H D Sodium 133 L Potassium 3.4 Chloride 101 Carbon Dioxide 31 BUN 28 H Creatinine 0.91 Estimated GFR 58.9 L BUN/Creatinine Ratio 30.8 H Glucose 153 H Calcium 9.2 Magnesium 1.9 A. baumannii (PCR) Xin albicans (PCR) C. glabrata (PCR) C. krusei (PCR) C. parapsilosis (PCR) C. tropicalis (PCR) Enterobacteriac sp PCR E. cloacae complex PCR Enterococcus sp PCR E. coli (PCR) H. influenzae (PCR) Klebsiella oxytoca PCR Klebsiella pneumoniae List. monocytogenes PCR N. meningitidis (PCR) Proteus species (PCR) Serratia marcescens PCR Staphylococcus sp PCR Staph aureus (PCR) mecA-Methicil Res Gene Streptococcus sp PCR Group A Strep (PCR) Strep agalactiae (PCR) Strep pneumoniae (PCR) P. aeruginosa (PCR) Ritchie/B-Vanco Res Genes KPC-Carbap Res Gene PCR [facility] Medical History (Updated 09/25/21 @ 10:35 by Jean Ta DO) Aneurysm of infrarenal abdominal aorta Bilateral carpal tunnel syndrome CAD (coronary artery disease) COPD (chronic obstructive pulmonary disease) with emphysema Elevated TSH HTN (hypertension) Hyperlipidemia Unstable angina Valvular heart disease Surgical History H/O hysterectomy with oophorectomy H/O three vessel coronary artery bypass Hx of heart artery stent Status post cholecystectomy Family History (Updated 09/15/21 @ 15:39 by Yessica Torres MD) Father Lung cancer Mother COPD (chronic obstructive pulmonary disease) Social History household members: family and children Smoking Status: Former smoker alcohol intake: never Assessment & Plan Assessment & Plan narrative: Assessment: 1. NSTEMI, acute 2. HFrEF (EF 35-30%), likely ischemic etiology, chronic 3. Pre-renal AZUL, likely dehydration-related 4. Hypertension 5. Hx of COPD, emphysema, stable 6. 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 Positive COVID, asymptomatic 8. Hypothyroidism Plan: 1. Troponin peaked at 0.4, downtrending. Of note, patient with positive myocardial perfusion study in Aug 2021. Aspirin 324 mg one-time administered. IV heparin on-board. Atorvastatin already at high-intensity dose. Clopidogrel 75 mg daily on-board. Cardiology consulted in ER: they recommend medical management for now. 2. Holding home Lasix for now given pre-renal AZUL. 3. Likely brought on by decreased fluid intake over the past several days, due to positive COVID. Holding Lasix as above. Recommending increased PO intake of fluids by patient. Holding home lisinopril for now. 4. Holding home lisinopril for now given the above. Can likely resume once renal function improves. 5. Will resume home maintenance inhaler therapy. She uses 2 liters oxygen at night at home. 6. Possible ILD, based on lung imaging. Patient denies hx of SLE, RA, or other autoimmune diseases. She's been strongly encouraged to establish care with an outpatient special education case manager. 7. Likely acquired at home. Patient is unvaccinated. There does not appear to be a respiratory component. 8. Will resume home levothyroxine 75 mg daily. VTE prophylaxis: IV heparin, as per problem 1. Disposition: Likely discharge home after completing 48 hrs of medical management for NSTEMI. Time Spent With Patient Critical Care time: I spent a total of [] minutes of critical care time on this patient's care today; this time is exclusive of procedural time. Quality VTE Deep Vein Thrombosis/Pulmonary Embolism Present on Admission: No
[2021-09-26] MEDS: ATORVASTATIN 20 MG TABLET 40 MG PO (20:03)
--- NOTE | 2021-09-26 21:09 | DI.RAD.S_ITS ---
PROCEDURE: XR CHEST 1V INDICATIONS: short of breath TECHNIQUE: One view of the chest was acquired. COMPARISON: [facility], CR, XR CHEST 2V, 05/28/2020, 14:37. [facility], CT, CT ANGIO CHEST PE PROTOCOL, 09/25/2021, 6:20. [facility], CR, XR CHEST 1V, 09/25/2021, 2:24. FINDINGS: Surgical changes and devices: Sternal wires. Lungs and pleura: Emphysematous changes are present bilaterally. No effusions. Areas of superimposed infiltrates are unchanged compared to prior exam. Mediastinum: Mediastinal contours appear normal. Heart size is enlarged. Bones and chest wall: No suspicious bony lesions. Overlying soft tissues appear unremarkable. IMPRESSION: Persistent appearance chronic interstitial changes with superimposed acute airspace disease such as pneumonia. Dictated by: Nikki Gudino M.D. on 09/26/2021 at 22:20 Approved by: Nikki Gudino M.D. on 09/26/2021 at 22:22
--- NOTE | 2021-09-26 21:42 | PM.CN.EICU ---
History of Present Illness Consult details Chief complaint: CP covid+ :: This patient was seen via real time interactive two-way audiovisual telecommunication. Narrative: Ms. Aguilar is a 85 year old female with history of COPD, CABG, HFrEF, and chronic hypoxemia respiratory failure on 2 liters nightly admitted for not feeling well. Further workup showed elevated troponin whcih she was treated for NSTEMI with heparin infusion and DAPT. CT chest personally reviewed -> centrilobuar emphysematous changes and subpleural reticular changes. Earlier this evening patient was found to be hypertensive with SBP ~170s follow by worsening hypoxemia requiring 15 liters NC. Transferred to ICU for further management. [facility] Medical History (Updated 09/25/21 @ 10:35 by Jean Ta DO) Aneurysm of infrarenal abdominal aorta Bilateral carpal tunnel syndrome CAD (coronary artery disease) COPD (chronic obstructive pulmonary disease) with emphysema Elevated TSH HTN (hypertension) Hyperlipidemia Unstable angina Valvular heart disease Surgical History H/O hysterectomy with oophorectomy H/O three vessel coronary artery bypass Hx of heart artery stent Status post cholecystectomy Family History (Updated 09/15/21 @ 15:39 by Yessica Torres MD) Father Lung cancer Mother COPD (chronic obstructive pulmonary disease) Social History household members: family and children Smoking Status: Former smoker alcohol intake: never Current Medications Current Medications Medications: Home Medications aspirin 81 mg tablet,delayed release 81 mg PO QDAY #0 07/11/17 [History Confirmed 09/25/21] lisinopril 40 mg tablet 40 mg PO DAILY 04/19/18 [History Confirmed 09/25/21] atorvastatin 20 mg tablet (Lipitor) 40 mg PO BEDTIME #180 tab 04/20/18 [Rx Confirmed 09/25/21] albuterol sulfate 90 mcg/actuation aerosol inhaler 2 puff INHALATION Q4H PRN 07/07/18 [History Confirmed 09/25/21] fluticasone 250 mcg-salmeterol 50 mcg/dose blistr powdr for inhalation (Advair Diskus) 1 inh INHALATION BID 07/07/18 [History Confirmed 09/25/21] fluticasone propionate 50 mcg/actuation nasal spray,suspension (Flonase Allergy Relief) 1 spray INTRANASAL BID PRN 07/07/18 [History Confirmed 09/25/21] levothyroxine 75 mcg tablet 75 mcg PO DAILY 07/07/18 [History Confirmed 09/25/21] multivitamin 1 tab PO DAILY 07/07/18 [History Confirmed 09/25/21] nitroglycerin 0.4 mg sublingual tablet (Nitrostat) 0.4 mg SUBLINGUAL Q5-15M PRN 07/07/18 [History Confirmed 09/25/21] omega 1-alq-sye-fish oil 1,000 mg (120 mg-180 mg) capsule (Fish Oil) 1,000 mg PO DAILY 07/07/18 [History Confirmed 09/25/21] vitamin E 400 unit capsule 400 unit PO DAILY 07/07/18 [History Confirmed 09/25/21] ipratropium 0.5 mg-albuterol 3 mg (2.5 mg base)/3 mL nebulization soln 3 ml INHALATION Q6-8H PRN #90 ml 11/04/18 [Rx Confirmed 09/25/21] furosemide 20 mg tablet (Lasix) 20 mg PO BID #6 tab 01/16/19 [Rx Confirmed 09/25/21] Visit Medications (administered) Generic Name Dose Route Start Last Admin Trade Name Freq PRN Reason Stop Dose Admin Albuterol 2.5 mg 09/25/21 19:00 09/26/21 19:42 Albuterol 2.5 Mg/3 Ml Neb (Adult) INH 2.5 mg [id number] ROLANDA Administration Aspirin 81 mg 09/26/21 09:00 09/26/21 09:55 Aspirin Ec 81 Mg Tablet PO 81 mg DAILY ROLANDA Administration Atorvastatin Calcium 40 mg 09/25/21 21:00 09/26/21 20:03 Atorvastatin 20 Mg Tablet PO 40 mg BEDTIME ROLANDA Administration Budesonide 0.5 mg 09/25/21 20:00 09/26/21 19:42 Budesonide 0.5 Mg/2 Ml Neb INH 0.5 mg RTBID ROLANDA Administration Fish Oil 1,000 mg 09/26/21 09:00 09/26/21 09:55 Fish Oil 1,000 Mg Capsule PO 1,000 mg DAILY ROLANDA Administration Heparin Sodium/Dextrose 25,000 unit in 500 mls @ 12.84 mls/hr 09/25/21 16:30 09/25/21 17:00 Heparin Drip IV 12.52 units/kg/hr CONT ROLANDA 13.4 mls/hr Administration Protocol 12 UNITS/KG/HR Levothyroxine Sodium 75 mcg 09/26/21 06:00 09/26/21 06:12 Levothyroxine 75 Mcg Tablet PO 75 mcg 0600 ROLANDA Administration Multivitamins 1 tab 09/26/21 09:00 09/26/21 09:55 Multivitamin 1 Tablet PO 1 tab DAILY ROLANDA Administration Vitamin E 400 unit 09/26/21 09:00 09/26/21 09:55 Vitamin E 400 Unit Capsule PO 400 unit DAILY ROLANDA Administration Exam Vital Signs (past 8 hours): - 09/26/21 14:57 09/26/21 15:05 09/26/21 16:00 Temperature 97.6 F 98.3 F Pulse Rate 80 Respiratory Rate 24 Blood Pressure 158/68 H Pulse Oximetry 95 94 09/26/21 19:42 09/26/21 19:50 09/26/21 19:57 Temperature Pulse Rate 104 H 103 H Respiratory Rate 30 H 31 H Blood Pressure Pulse Oximetry 92 93 93 09/26/21 21:00 Temperature 99.4 F Pulse Rate 115 H Respiratory Rate 32 H Blood Pressure 174/81 H Pulse Oximetry 100 Oxygen Delivery Method High Flow Nasal Cannula Oxygen Flow Rate 15 Objective Labs Result Diagrams: 09/26/21 04:45 09/26/21 04:45 Labs: Laboratory Results - last 24 hr 09/25/21 09/26/21 09/26/21 02:55 00:34 04:45 WBC 3.1 L D RBC 4.70 Hgb 13.2 Hct 39.6 MCV 84.2 MCH 28.1 MCHC 33.4 RDW 14.4 Plt Count 120 L Neut % (Auto) 82.7 H Lymph % (Auto) 7.5 L Schleicher % (Auto) 9.7 Eos % (Auto) 0.0 L Baso % (Auto) 0.1 Neut # (Auto) 2600 Lymph # (Auto) 200 L [place]leicher # (Auto) 300 Eos # (Auto) 0 Baso # (Auto) 0 APTT 166 H* D Sodium Potassium Chloride Carbon Dioxide BUN Creatinine Estimated GFR BUN/Creatinine Ratio Glucose Calcium Magnesium A. baumannii (PCR) Not detected Xin albicans (PCR) Not detected C. glabrata (PCR) Not detected C. krusei (PCR) Not detected C. parapsilosis (PCR) Not detected C. tropicalis (PCR) Not detected Enterobacteriac sp PCR Not detected E. cloacae complex PCR Not detected Enterococcus sp PCR Not detected E. coli (PCR) Not detected H. influenzae (PCR) Not detected Klebsiella oxytoca PCR Not detected Klebsiella pneumoniae Not detected List. monocytogenes PCR Not detected N. meningitidis (PCR) Not detected Proteus species (PCR) Not detected Serratia marcescens PCR Not detected Staphylococcus sp PCR Not detected Staph aureus (PCR) Not detected mecA-Methicil Res Gene Not detected Streptococcus sp PCR Not detected Group A Strep (PCR) Not detected Strep agalactiae (PCR) Not detected Strep pneumoniae (PCR) Not detected P. aeruginosa (PCR) Not detected Ritchie/B-Vanco Res Genes Not detected KPC-Carbap Res Gene PCR Not detected 09/26/21 09/26/21 04:45 08:15 WBC RBC Hgb Hct MCV MCH MCHC RDW Plt Count Neut % (Auto) Lymph % (Auto) [place]leicher % (Auto) Eos % (Auto) Baso % (Auto) Neut # (Auto) Lymph # (Auto) Schleicher # (Auto) Eos # (Auto) Baso # (Auto) APTT 61 H D Sodium 133 L Potassium 3.4 Chloride 101 Carbon Dioxide 31 BUN 28 H Creatinine 0.91 Estimated GFR 58.9 L BUN/Creatinine Ratio 30.8 H Glucose 153 H Calcium 9.2 Magnesium 1.9 A. baumannii (PCR) Xin albicans (PCR) C. glabrata (PCR) C. krusei (PCR) C. parapsilosis (PCR) C. tropicalis (PCR) Enterobacteriac sp PCR E. cloacae complex PCR Enterococcus sp PCR E. coli (PCR) H. influenzae (PCR) Klebsiella oxytoca PCR Klebsiella pneumoniae List. monocytogenes PCR N. meningitidis (PCR) Proteus species (PCR) Serratia marcescens PCR Staphylococcus sp PCR Staph aureus (PCR) mecA-Methicil Res Gene Streptococcus sp PCR Group A Strep (PCR) Strep agalactiae (PCR) Strep pneumoniae (PCR) P. aeruginosa (PCR) Ritchie/B-Vanco Res Genes KPC-Carbap Res Gene PCR Assessment & Plan Assessment & Plan narrative: NEURO: -- Seek early mobility as tolerated RESP: # Acute on chronic hypoxemia respiratory failure -- Secondary to flash pulmonary edema given hypertensive crisis with worsening hypoxemia. Other ddx includes COPD exacerbation vs PNA. -- Recommend initiating BiPAP to seek preload and afterload reduction -- Agree with continuing steroids -- Cont duoneb -- Recommend checking CXR and ABG -- Agree with starting course of vanc/cefepime -- Check sputum culture -- HOB elevation -- Aspiration precaution -- Goal SpO2 > 88% # COPD exacerbations -- Cont solumedrol and duonebs -- Start BiPAP -- Goal SpO2 > 88% CVS: # HTN urgency -- Recommend starting nitroglycerin infusion to seek preload reduction -- Diuresis as below -- Goal SBP < 140 # NSTEMI -- Secondary to type I vs II -- On DAPT and heparin infusion -- Monitor on telemetry # Acute decompensated HFrEF -- Secondary to high afterload due to flash pulmonary edema -- Recommend starting lasix 40 mg IV BID -- Start BiPAP as above -- Goal SBP < 140 -- Strict I/O and if unable to obtain accurate I/O then recommend gambino catheter placement ENDO: -- Goal BS < 180 Time Spent With Patient Critical Care time: I spent a total of [] minutes of critical care time on this patient's care today; this time is exclusive of procedural time.
[2021-09-26] MEDS: DEXAMETHASONE 10 MG/ML VIAL 6 MG IV (21:46)
[2021-09-26 21:47] LABS: Hematocrit 40.6 % (36-46); Hemoglobin 13.8 g/dL (12.0-16.0); Mean Corpuscular HGB Conc 33.9 % (30-36); Mean Corpuscular Hemoglobin 28.4 PG (26-34); Mean Corpuscular Volume 83.6 fL (80-100); Platelet Count 133 X10^3/uL (150-400); Red Blood Cell Count 4.86 X10^6/uL (4.0-5.2); Red Cell Distribution Width 14.5 % (11.6-14.8); White Blood Cell Count 8.4 X10^3/uL (4.5-11.0)
[2021-09-26 21:51] LABS: D Dimer 932 ng/mL (<230); Lactate (Lactic Acid) 3.2 mmol/L (0.7-2.1)
[2021-09-26 21:52] LABS: Alanine Aminotransferase 20 IU/L (<35); Albumin 3.5 g/dL (3.5-5.0); Albumin Globulin Ratio 1.3 (1.0-2.8); Alkaline Phosphatase 47 U/L (38-126); Aspartate Aminotransferase 40 IU/L (14-36); BUN Creatinine Ratio 21.8 (6-22); Bilirubin Total 0.9 mg/dL (0.2-1.3); Blood Urea Nitrogen 19 mg/dL (7-17); Calcium 9.8 mg/dL (8.4-10.2); Carbon Dioxide 31 mmol/L (22-32); Chloride 102 mmol/L (98-107); Estimated Glomerular Filt Rate > 60.0 mL/min (>60); Globulin 2.8 g/dL (1.7-4.1); Glucose 93 mg/dL (80-110); HEMOLYSIS < 15 (0-50); Potassium 4.2 mmol/L (3.4-5.1); Sodium 134 mmol/L (137-145); Total Protein 6.3 g/dL (6.3-8.2)
--- NOTE | 2021-09-26 21:57 | P.PN_ITS ---
Subjective Subjective Date Patient Seen: 09/26/21 Time Patient Seen: 21:30 Interval history: Called by nurse about clinical change in patient. She has been admitted as COVID positive, per attending physician, no indication for treatment as she had no respiratory symptoms. Has been found to have an NSTEMI and being treated with IV heparin and medical management after cardiology consultation. Tonight she developed respiratory distress, worsening hypoxemia. She says she does not feel well. She has difficulty describing her symptoms. She acknowledges shortness of breath, but in general says she does not feel well. Vitals notable for tachycardia, very hypertensive 190s/90s, tachypnea. Prior to me seeing the patient, she had been placed on 15L oxygen. Exam Vital Signs (past 8 hours): - 09/26/21 14:57 09/26/21 15:05 09/26/21 16:00 Temperature 97.6 F 98.3 F Pulse Rate 80 Respiratory Rate 24 Blood Pressure 158/68 H Pulse Oximetry 95 94 09/26/21 19:42 09/26/21 19:50 09/26/21 19:57 Temperature Pulse Rate 104 H 103 H Respiratory Rate 30 H 31 H Blood Pressure Pulse Oximetry 92 93 93 09/26/21 21:00 Temperature 99.4 F Pulse Rate 115 H Respiratory Rate 32 H Blood Pressure 174/81 H Pulse Oximetry 100 Oxygen Delivery Method High Flow Nasal Cannula Oxygen Flow Rate 15 Narrative Exam Narrative: GEN: anxious, mild respiratory distress PULM: good air movement with faint wheezes bilaterally CV: tachycardic with systolic ejection murmur EXT: trace edema Objective Labs Result Diagrams: 09/26/21 21:28 09/26/21 21:28 Labs: Laboratory Results - last 24 hr 09/25/21 09/26/21 09/26/21 02:55 00:34 04:45 WBC 3.1 L D RBC 4.70 Hgb 13.2 Hct 39.6 MCV 84.2 MCH 28.1 MCHC 33.4 RDW 14.4 Plt Count 120 L Neut % (Auto) 82.7 H Lymph % (Auto) 7.5 L Brown % (Auto) 9.7 Eos % (Auto) 0.0 L Baso % (Auto) 0.1 Neut # (Auto) 2600 Lymph # (Auto) 200 L Brown # (Auto) 300 Eos # (Auto) 0 Baso # (Auto) 0 APTT 166 H* D D-Dimer Sodium Potassium Chloride Carbon Dioxide BUN Creatinine Estimated GFR BUN/Creatinine Ratio Glucose Lactate Calcium Magnesium Total Bilirubin AST ALT Alkaline Phosphatase Total Protein Albumin Globulin Albumin/Globulin Ratio A. baumannii (PCR) Not detected Xin albicans (PCR) Not detected C. glabrata (PCR) Not detected C. krusei (PCR) Not detected C. parapsilosis (PCR) Not detected C. tropicalis (PCR) Not detected Enterobacteriac sp PCR Not detected E. cloacae complex PCR Not detected Enterococcus sp PCR Not detected E. coli (PCR) Not detected H. influenzae (PCR) Not detected Klebsiella oxytoca PCR Not detected Klebsiella pneumoniae Not detected List. monocytogenes PCR Not detected N. meningitidis (PCR) Not detected Proteus species (PCR) Not detected Serratia marcescens PCR Not detected Staphylococcus sp PCR Not detected Staph aureus (PCR) Not detected mecA-Methicil Res Gene Not detected Streptococcus sp PCR Not detected Group A Strep (PCR) Not detected Strep agalactiae (PCR) Not detected Strep pneumoniae (PCR) Not detected P. aeruginosa (PCR) Not detected Ritchie/B-Vanco Res Genes Not detected KPC-Carbap Res Gene PCR Not detected 09/26/21 09/26/21 09/26/21 04:45 08:15 21:28 WBC 8.4 D RBC 4.86 Hgb 13.8 Hct 40.6 MCV 83.6 MCH 28.4 MCHC 33.9 RDW 14.5 Plt Count 133 L Neut % (Auto) Lymph % (Auto) Brown % (Auto) Eos % (Auto) Baso % (Auto) Neut # (Auto) Lymph # (Auto) Brown # (Auto) Eos # (Auto) Baso # (Auto) APTT 61 H D D-Dimer Sodium 133 L Potassium 3.4 Chloride 101 Carbon Dioxide 31 BUN 28 H Creatinine 0.91 Estimated GFR 58.9 L BUN/Creatinine Ratio 30.8 H Glucose 153 H Lactate Calcium 9.2 Magnesium 1.9 Total Bilirubin AST ALT Alkaline Phosphatase Total Protein Albumin Globulin Albumin/Globulin Ratio A. baumannii (PCR) Xin albicans (PCR) C. glabrata (PCR) C. krusei (PCR) C. parapsilosis (PCR) C. tropicalis (PCR) Enterobacteriac sp PCR E. cloacae complex PCR Enterococcus sp PCR E. coli (PCR) H. influenzae (PCR) Klebsiella oxytoca PCR Klebsiella pneumoniae List. monocytogenes PCR N. meningitidis (PCR) Proteus species (PCR) Serratia marcescens PCR Staphylococcus sp PCR Staph aureus (PCR) mecA-Methicil Res Gene Streptococcus sp PCR Group A Strep (PCR) Strep agalactiae (PCR) Strep pneumoniae (PCR) P. aeruginosa (PCR) Ritchie/B-Vanco Res Genes KPC-Carbap Res Gene PCR 09/26/21 09/26/21 09/26/21 21:28 21:28 21:28 WBC RBC Hgb Hct MCV MCH MCHC RDW Plt Count Neut % (Auto) Lymph % (Auto) Brown % (Auto) Eos % (Auto) Baso % (Auto) Neut # (Auto) Lymph # (Auto) Brown # (Auto) Eos # (Auto) Baso # (Auto) APTT D-Dimer 932 H Sodium 134 L Potassium 4.2 Chloride 102 Carbon Dioxide 31 BUN 19 H Creatinine 0.87 Estimated GFR > 60.0 BUN/Creatinine Ratio 21.8 Glucose 93 Lactate 3.2 H Calcium 9.8 Magnesium Total Bilirubin 0.9 AST 40 H ALT 20 Alkaline Phosphatase 47 Total Protein 6.3 Albumin 3.5 Globulin 2.8 Albumin/Globulin Ratio 1.3 A. baumannii (PCR) Xin albicans (PCR) C. glabrata (PCR) C. krusei (PCR) C. parapsilosis (PCR) C. tropicalis (PCR) Enterobacteriac sp PCR E. cloacae complex PCR Enterococcus sp PCR E. coli (PCR) H. influenzae (PCR) Klebsiella oxytoca PCR Klebsiella pneumoniae List. monocytogenes PCR N. meningitidis (PCR) Proteus species (PCR) Serratia marcescens PCR Staphylococcus sp PCR Staph aureus (PCR) mecA-Methicil Res Gene Streptococcus sp PCR Group A Strep (PCR) Strep agalactiae (PCR) Strep pneumoniae (PCR) P. aeruginosa (PCR) Ritchie/B-Vanco Res Genes KPC-Carbap Res Gene PCR [facility] Medical History (Updated 09/25/21 @ 10:35 by Jean Ta DO) Aneurysm of infrarenal abdominal aorta Bilateral carpal tunnel syndrome CAD (coronary artery disease) COPD (chronic obstructive pulmonary disease) with emphysema Elevated TSH HTN (hypertension) Hyperlipidemia Unstable angina Valvular heart disease Surgical History H/O hysterectomy with oophorectomy H/O three vessel coronary artery bypass Hx of heart artery stent Status post cholecystectomy Family History (Updated 09/15/21 @ 15:39 by Yessica Torres MD) Father Lung cancer Mother COPD (chronic obstructive pulmonary disease) Social History household members: family and children Smoking Status: Former smoker alcohol intake: never Assessment & Plan Assessment & Plan narrative: Ms. Aguilar is an 85W with PM CAD s/p CABG, COPD, COVID positive admitted for NSTEMI and transferred to ICU for worsening hypoxemia. 1. 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 Hypertensive urgency, acute -blood pressure measured at 190s/90s -ordered for IV nitro gtt as above 3. NSTEMI -continue aspirin -continues on IV heparin 4. COVID positive -for now start dexamethasone -overall clinical picture makes respiratory decompensation more likely pulmonary edema or bacterial pneumonia 5. History of emphysema, possible ILD -continue nebulizers -start steroids Time Spent With Patient Critical Care time: I spent a total of 35 minutes of critical care time on this patient's care today; this time is exclusive of procedural time. Quality VTE Deep Vein Thrombosis/Pulmonary Embolism Present on Admission: No
[2021-09-26 22:01] LABS: NT-proBNP (BNP-Adult 18+) 3420 pg/mL (<450)
[2021-09-26 22:08] LABS: Procalcitonin 0.12 ng/mL (<0.5)
[2021-09-26] MEDS: FUROSEMIDE 40 MG/4 ML VIAL IV (22:36)
[2021-09-26] MEDS: NITROGLYCERIN 50 MG/250 ML INFUS..BTL IV (22:45)
[2021-09-26] MEDS: VANCOMYCIN 1,000 MG/200 ML PIGGYBACK 200 MG IV (22:46)
[2021-09-26] MEDS: CEFEPIME 1 GM in SODIUM CHLORIDE 0.9% 100 ML 200 ML IV (22:55)
[2021-09-26 23:41] LABS: PCO2 ABG 33.1 mmHg (35-45); PO2 ABG 126 mmHg (80-100)
[2021-09-26 23:42] LABS: Fractionated Inspired Oxygen 100; HCO3 ABG 26 mmol/L (22-26); Oxygen Saturation ABG 99 % (95-100); TCO2 ABG 27 mmol/L (21-31)
[2021-09-26 23:43] LABS: Reflexed Lactate in 2 Hours Y
[2021-09-26 23:44] LABS: HCO3 VBG 27 mmol/L (23-28); PO2 VBG 32 mmHg (35-45); Total CO2 VBG 28 mmol/L (24-29)
[2021-09-26 23:45] LABS: Oxygen Saturation VBG 65 % (70-75); pH VBG 7.44 (7.33-7.43)
[2021-09-27] VITALS (21 sets, daily range): BP systolic 115–165; BP diastolic 57–74; PULSE 66–107; RESP 9–37; TEMP 36.4–37; O2SAT 92–100
[2021-09-27] MEDS: HEPARIN DRIP 25,000 UNIT/500 ML IV.SOLN 13.418 UNIT IV (04:21)
[2021-09-27 05:12] LABS: PTT Partial Thromboplastin Tim 46 SECONDS (26.4-36.2)
[2021-09-27 05:13] LABS: Lactate (Lactic Acid) 2.1 mmol/L (0.7-2.1)
[2021-09-27 05:57] LABS: Alanine Aminotransferase 19 IU/L (<35); Albumin 3.2 g/dL (3.5-5.0); Albumin Globulin Ratio 1.1 (1.0-2.8); Alkaline Phosphatase 45 U/L (38-126); Aspartate Aminotransferase 38 IU/L (14-36); BUN Creatinine Ratio 20.2 (6-22); Bilirubin Total 0.9 mg/dL (0.2-1.3); Blood Urea Nitrogen 19 mg/dL (7-17); Calcium 9.2 mg/dL (8.4-10.2); Carbon Dioxide 31 mmol/L (22-32); Chloride 101 mmol/L (98-107); Estimated Glomerular Filt Rate 56.7 mL/min (>60); Globulin 2.8 g/dL (1.7-4.1); Glucose 194 mg/dL (80-110); HEMOLYSIS < 15 (0-50); Magnesium 1.7 mg/dL (1.6-2.3); Potassium 4.3 mmol/L (3.4-5.1); Sodium 133 mmol/L (137-145)
[2021-09-27 06:13] LABS: Troponin I 0.121 ng/mL (0.01-0.034)
[2021-09-27] MEDS: LEVOTHYROXINE 75 MCG TABLET PO (06:29)
--- NOTE | 2021-09-27 06:38 | PC.NURSE ---
Shift note: Patient maintained on O2 support at 8lpm by nasal cannula, O2 sat was >95%, denies shortness of breath or chest pain. Patient appears anxious at times. Afebrile, vital signs are within acceptable limits. On heparin drip, PTT was done, heparin was adjusted as per protocol. Patient was also on nitroglycerin drip but withheld since SBP maintaining <140. Patient uses bedpan with adequate urine output. No cardiopulmonary distress noted. Will continue to monitor.
[2021-09-27 06:56] LABS: Reflexed Lactate in 2 Hours Y
--- NOTE | 2021-09-27 09:28 | PC.NURSE ---
Am shift Pt is A/ox 3, reports decreased anxiety and less SOB breath this AM, able to wean down to 10L this AM with meal. Exertional SOB with any activity, rec. not ambulating to BR until better tolerating activity. Update to son José, re:POC and visitor policy. Pt BP has been 130-140/80's this shift thus far, rec'd Lasix on previous shift and voiding well in response.
[2021-09-27] MEDS: BUDESONIDE 0.5 MG/2 ML NEB INH ×2 (09:51→19:50)
[2021-09-27] MEDS: ALBUTEROL 2.5 MG/3 ML NEB (ADULT) INH ×4 (09:51→23:41)
--- NOTE | 2021-09-27 10:00 | P.TELICUPN_ITS ---
Subjective Subjective :: This patient was seen via real time interactive two-way audiovisual telecommunication. Ms. Aguilar is a 85 year old female with history of COPD, CABG, HFrEF, and chronic hypoxemia respiratory failure on 2 liters nightly admitted for NSTEMI , hypoxemic resp failure 2/2 pul edema, hypertensive emergency, found to be COVID positive Assessment & Plan narrative: NEURO: -- Seek early mobility as tolerated RESP: # Acute on chronic hypoxemia respiratory failure -- Secondary to flash pulmonary edema given hypertensive crisis with worsening hypoxemia. Other ddx includes COPD exacerbation vs PNA. -- Weaned off to 10 L NC -- Continuing steroids -- Cont duoneb? -- Recommend checking CXR as neded for any resp changes -- On vanc/cefepime, de escalate in Am and Dc vanc if Cx is neg --f/u sputum culture -- HOB elevation -- Aspiration precaution -- Goal SpO2 > 88% # COPD exacerbations -- Cont steroid and duonebs -- Start BiPAP -- Goal SpO2 > 88% CVS: # HTN emergency -- Off nitroglycerin infusion -- Diuresis as below -- Goal SBP < 140 # NSTEMI -- Secondary to type I vs II -- On DAPT and heparin infusion -- Monitor on telemetry # Acute decompensated HFrEF ( 25%- 40% in 2020) -- Secondary to high afterload due to flash pulmonary edema -- Recommend starting lasix 40 mg IV Q8H -- Repeat 2 D echo -- Goal SBP < 140 -- Strict I/O and if unable to obtain accurate I/O then recommend gambino catheter placement -- Mild hyponatremia, fluid restriction to 1 L per day to help with diuresis ENDO: -- Goal BS < 180 CCT 40 min Current Medications Current Medications Medications: Home Medications aspirin 81 mg tablet,delayed release 81 mg PO QDAY #0 07/11/17 [History Conf irmed 09/25/21] lisinopril 40 mg tablet 40 mg PO DAILY 04/19/18 [History Confirmed 09/25/21] atorvastatin 20 mg tablet (Lipitor) 40 mg PO BEDTIME #180 tab 04/20/18 [Rx Confirmed 09/25/21] albuterol sulfate 90 mcg/actuation aerosol inhaler 2 puff INHALATION Q4H PRN 07/07/18 [History Confirmed 09/25/21] fluticasone 250 mcg-salmeterol 50 mcg/dose blistr powdr for inhalation (Advair Diskus) 1 inh INHALATION BID 07/07/18 [History Confirmed 09/25/21] fluticasone propionate 50 mcg/actuation nasal spray,suspension (Flonase Allergy Relief) 1 spray INTRANASAL BID PRN 07/07/18 [History Confirmed 09/25/21] levothyroxine 75 mcg tablet 75 mcg PO DAILY 07/07/18 [History Confirmed 09/25/21] multivitamin 1 tab PO DAILY 07/07/18 [History Confirmed 09/25/21] nitroglycerin 0.4 mg sublingual tablet (Nitrostat) 0.4 mg SUBLINGUAL Q5-15M PRN 07/07/18 [History Confirmed 09/25/21] omega 4-rbx-epa-fish oil 1,000 mg (120 mg-180 mg) capsule (Fish Oil) 1,000 mg PO DAILY 07/07/18 [History Confirmed 09/25/21] vitamin E 400 unit capsule 400 unit PO DAILY 07/07/18 [History Confirmed 09/25/21] ipratropium 0.5 mg-albuterol 3 mg (2.5 mg base)/3 mL nebulization soln 3 ml INHALATION Q6-8H PRN #90 ml 11/04/18 [Rx Confirmed 09/25/21] furosemide 20 mg tablet (Lasix) 20 mg PO BID #6 tab 01/16/19 [Rx Confirmed 09/25/21] Visit Medications (administered) Generic Name Dose Route Start Last Admin Trade Name Freq PRN Reason Stop Dose Admin Albuterol 2.5 mg 09/25/21 19:00 09/27/21 09:51 Albuterol 2.5 Mg/3 Ml Neb (Adult) INH 2.5 mg [id number] ROLANDA Administration Aspirin 81 mg 09/26/21 09:00 09/26/21 09:55 Aspirin Ec 81 Mg Tablet PO 81 mg DAILY ROLANDA Administration Atorvastatin Calcium 40 mg 09/25/21 21:00 09/26/21 20:03 Atorvastatin 20 Mg Tablet PO 40 mg BEDTIME ROLANDA Administration Budesonide 0.5 mg 09/25/21 20:00 09/27/21 09:51 Budesonide 0.5 Mg/2 Ml Neb INH 0.5 mg RTBID ROLANDA Administration Dexamethasone 6 mg 09/26/21 21:15 09/26/21 21:46 Dexamethasone 10 Mg/Ml Vial IV 6 mg DAILY ROLANDA Administration Fish Oil 1,000 mg 09/26/21 09:00 09/26/21 09:55 Fish Oil 1,000 Mg Capsule PO 1,000 mg DAILY ROLANDA Administration Heparin Sodium/Dextrose 25,000 unit in 500 mls @ 12.84 mls/hr 09/25/21 16:30 09/27/21 09:27 Heparin Drip IV 12.52 units/kg/hr CONT ROLANDA 13.4 mls/hr Titration Protocol 12 UNITS/KG/HR Cefepime HCl 1 gm/ Sodium 100 mls @ 200 mls/hr 09/26/21 22:00 09/26/21 23:25 Chloride IV Infused Q12H ROLANDA Infusion Nitroglycerin 50 mg in 250 mls @ 1.5 mls/hr 09/26/21 22:00 09/27/21 04:20 Nitroglycerin IV 0 mcg/min TITRATE ROLANDA 0 mls/hr Titration Protocol 5 MCG/MIN Levothyroxine Sodium 75 mcg 09/26/21 06:00 09/27/21 06:29 Levothyroxine 75 Mcg Tablet PO 75 mcg 0600 ROLANDA Administration Multivitamins 1 tab 09/26/21 09:00 09/26/21 09:55 Multivitamin 1 Tablet PO 1 tab DAILY ROLANDA Administration Vitamin E 400 unit 09/26/21 09:00 09/26/21 09:55 Vitamin E 400 Unit Capsule PO 400 unit DAILY ROLANDA Administration Objective Ventilator Parameters: Ventilator Settings FiO2 100 Labs Result Diagrams: 09/26/21 21:28 09/27/21 04:38 Labs: Laboratory Results - last 24 hr 09/25/21 09/26/21 09/26/21 02:55 08:15 21:28 WBC 8.4 D RBC 4.86 Hgb 13.8 Hct 40.6 MCV 83.6 MCH 28.4 MCHC 33.9 RDW 14.5 Plt Count 133 L APTT 61 H D D-Dimer ABG pH ABG pCO2 ABG pO2 ABG HCO3 ABG Total CO2 ABG O2 Saturation ABG Base Excess VBG pH VBG pCO2 VBG pO2 VBG HCO3 VBG Total CO2 VBG O2 Saturation VBG Base Excess FiO2 Sodium Potassium Chloride Carbon Dioxide BUN Creatinine Estimated GFR BUN/Creatinine Ratio Glucose Lactate Calcium Magnesium Total Bilirubin AST ALT Alkaline Phosphatase Troponin I NT-Pro-B Natriuret Pep Total Protein Albumin Globulin Albumin/Globulin Ratio Procalcitonin A. baumannii (PCR) Not detected Xin albicans (PCR) Not detected C. glabrata (PCR) Not detected C. krusei (PCR) Not detected C. parapsilosis (PCR) Not detected C. tropicalis (PCR) Not detected Enterobacteriac sp PCR Not detected E. cloacae complex PCR Not detected Enterococcus sp PCR Not detected E. coli (PCR) Not detected H. influenzae (PCR) Not detected Klebsiella oxytoca PCR Not detected Klebsiella pneumoniae Not detected List. monocytogenes PCR Not detected N. meningitidis (PCR) Not detected Proteus species (PCR) Not detected Serratia marcescens PCR Not detected Staphylococcus sp PCR Not detected Staph aureus (PCR) Not detected mecA-Methicil Res Gene Not detected Streptococcus sp PCR Not detected Group A Strep (PCR) Not detected Strep agalactiae (PCR) Not detected Strep pneumoniae (PCR) Not detected P. aeruginosa (PCR) Not detected Ritchie/B-Vanco Res Genes Not detected KPC-Carbap Res Gene PCR Not detected 09/26/21 09/26/21 09/26/21 21:28 21:28 21:28 WBC RBC Hgb Hct MCV MCH MCHC RDW Plt Count APTT D-Dimer 932 H ABG pH ABG pCO2 ABG pO2 ABG HCO3 ABG Total CO2 ABG O2 Saturation ABG Base Excess VBG pH VBG pCO2 VBG pO2 VBG HCO3 VBG Total CO2 VBG O2 Saturation VBG Base Excess FiO2 Sodium 134 L Potassium 4.2 Chloride 102 Carbon Dioxide 31 BUN 19 H Creatinine 0.87 Estimated GFR > 60.0 BUN/Creatinine Ratio 21.8 Glucose 93 Lactate 3.2 H Calcium 9.8 Magnesium Total Bilirubin 0.9 AST 40 H ALT 20 Alkaline Phosphatase 47 Troponin I 0.130 H* NT-Pro-B Natriuret Pep Total Protein 6.3 Albumin 3.5 Globulin 2.8 Albumin/Globulin Ratio 1.3 Procalcitonin A. baumannii (PCR) Xin albicans (PCR) C. glabrata (PCR) C. krusei (PCR) C. parapsilosis (PCR) C. tropicalis (PCR) Enterobacteriac sp PCR E. cloacae complex PCR Enterococcus sp PCR E. coli (PCR) H. influenzae (PCR) Klebsiella oxytoca PCR Klebsiella pneumoniae List. monocytogenes PCR N. meningitidis (PCR) Proteus species (PCR) Serratia marcescens PCR Staphylococcus sp PCR Staph aureus (PCR) mecA-Methicil Res Gene Streptococcus sp PCR Group A Strep (PCR) Strep agalactiae (PCR) Strep pneumoniae (PCR) P. aeruginosa (PCR) Ritchie/B-Vanco Res Genes KPC-Carbap Res Gene PCR 09/26/21 09/26/21 09/26/21 21:28 22:12 22:31 WBC RBC Hgb Hct MCV MCH MCHC RDW Plt Count APTT D-Dimer ABG pH 7.50 H ABG pCO2 33.1 L ABG pO2 126 H ABG HCO3 26 ABG Total CO2 27 ABG O2 Saturation 99 ABG Base Excess 3.0 H VBG pH 7.44 H VBG pCO2 40.0 L VBG pO2 32 L VBG HCO3 27 VBG Total CO2 28 VBG O2 Saturation 65 L VBG Base Excess 3.0 FiO2 100 Sodium Potassium Chloride Carbon Dioxide BUN Creatinine Estimated GFR BUN/Creatinine Ratio Glucose Lactate Calcium Magnesium Total Bilirubin AST ALT Alkaline Phosphatase Troponin I NT-Pro-B Natriuret Pep 3420 H Total Protein Albumin Globulin Albumin/Globulin Ratio Procalcitonin 0.12 A. baumannii (PCR) Xin albicans (PCR) C. glabrata (PCR) C. krusei (PCR) C. parapsilosis (PCR) C. tropicalis (PCR) Enterobacteriac sp PCR E. cloacae complex PCR Enterococcus sp PCR E. coli (PCR) H. influenzae (PCR) Klebsiella oxytoca PCR Klebsiella pneumoniae List. monocytogenes PCR N. meningitidis (PCR) Proteus species (PCR) Serratia marcescens PCR Staphylococcus sp PCR Staph aureus (PCR) mecA-Methicil Res Gene Streptococcus sp PCR Group A Strep (PCR) Strep agalactiae (PCR) Strep pneumoniae (PCR) P. aeruginosa (PCR) Ritchie/B-Vanco Res Genes KPC-Carbap Res Gene PCR 09/27/21 09/27/21 09/27/21 04:38 04:38 04:38 WBC RBC Hgb Hct MCV MCH MCHC RDW Plt Count APTT 46 H D D-Dimer ABG pH ABG pCO2 ABG pO2 ABG HCO3 ABG Total CO2 ABG O2 Saturation ABG Base Excess VBG pH VBG pCO2 VBG pO2 VBG HCO3 VBG Total CO2 VBG O2 Saturation VBG Base Excess FiO2 Sodium 133 L Potassium 4.3 Chloride 101 Carbon Dioxide 31 BUN 19 H Creatinine 0.94 Estimated GFR 56.7 L BUN/Creatinine Ratio 20.2 Glucose 194 H D Lactate Calcium 9.2 Magnesium Total Bilirubin 0.9 AST 38 H ALT 19 Alkaline Phosphatase 45 Troponin I 0.121 H* NT-Pro-B Natriuret Pep Total Protein 6.0 L Albumin 3.2 L Globulin 2.8 Albumin/Globulin Ratio 1.1 Procalcitonin A. baumannii (PCR) Xin albicans (PCR) C. glabrata (PCR) C. krusei (PCR) C. parapsilosis (PCR) C. tropicalis (PCR) Enterobacteriac sp PCR E. cloacae complex PCR Enterococcus sp PCR E. coli (PCR) H. influenzae (PCR) Klebsiella oxytoca PCR Klebsiella pneumoniae List. monocytogenes PCR N. meningitidis (PCR) Proteus species (PCR) Serratia marcescens PCR Staphylococcus sp PCR Staph aureus (PCR) mecA-Methicil Res Gene Streptococcus sp PCR Group A Strep (PCR) Strep agalactiae (PCR) Strep pneumoniae (PCR) P. aeruginosa (PCR) Ritchie/B-Vanco Res Genes KPC-Carbap Res Gene PCR 09/27/21 09/27/21 09/27/21 04:38 04:38 08:10 WBC RBC Hgb Hct MCV MCH MCHC RDW Plt Count APTT D-Dimer ABG pH ABG pCO2 ABG pO2 ABG HCO3 ABG Total CO2 ABG O2 Saturation ABG Base Excess VBG pH VBG pCO2 VBG pO2 VBG HCO3 VBG Total CO2 VBG O2 Saturation VBG Base Excess FiO2 Sodium Potassium Chloride Carbon Dioxide BUN Creatinine Estimated GFR BUN/Creatinine Ratio Glucose Lactate 2.1 3.0 H Calcium Magnesium 1.7 Total Bilirubin AST ALT Alkaline Phosphatase Troponin I NT-Pro-B Natriuret Pep Total Protein Albumin Globulin Albumin/Globulin Ratio Procalcitonin A. baumannii (PCR) Xin albicans (PCR) C. glabrata (PCR) C. krusei (PCR) C. parapsilosis (PCR) C. tropicalis (PCR) Enterobacteriac sp PCR E. cloacae complex PCR Enterococcus sp PCR E. coli (PCR) H. influenzae (PCR) Klebsiella oxytoca PCR Klebsiella pneumoniae List. monocytogenes PCR N. meningitidis (PCR) Proteus species (PCR) Serratia marcescens PCR Staphylococcus sp PCR Staph aureus (PCR) mecA-Methicil Res Gene Streptococcus sp PCR Group A Strep (PCR) Strep agalactiae (PCR) Strep pneumoniae (PCR) P. aeruginosa (PCR) Ritchie/B-Vanco Res Genes KPC-Carbap Res Gene PCR Exam Vital Signs (past 8 hours): - 09/27/21 05:05 09/27/21 08:30 Temperature 97.6 F Pulse Rate 83 66 Respiratory Rate 27 H Blood Pressure 158/72 H 135/61 Pulse Oximetry 96 Oxygen Delivery Method Nasal Cannula Oxygen Flow Rate 15 Quality TeleICU VTE Deep Vein Thrombosis/Pulmonary Embolism Present on Admission: No Assessment & Plan Time Spent With Patient Critical Care time: I spent a total of [] minutes of critical care time on this patient's care today; this time is exclusive of procedural time.
[2021-09-27] MEDS: FUROSEMIDE 40 MG/4 ML VIAL IV ×3 (11:13→23:43)
[2021-09-27] MEDS: DEXAMETHASONE 10 MG/ML VIAL 6 MG IV (11:13)
[2021-09-27] MEDS: VANCOMYCIN 1,000 MG/200 ML PIGGYBACK 200 MG IV (11:13)
[2021-09-27] MEDS: MAGNESIUM CHLORIDE 64 MG TABLET 128 MG PO (11:14)
[2021-09-27] MEDS: ASPIRIN EC 81 MG TABLET PO (11:14)
[2021-09-27] MEDS: CLOPIDOGREL 75 MG TABLET PO (11:14)
[2021-09-27] MEDS: SODIUM CHLORIDE 0.9% FLUSH 10 ML IV ×2 (11:15→21:20)
[2021-09-27] MEDS: FISH OIL 1,000 MG CAPSULE 1000 MG PO (11:48)
[2021-09-27] MEDS: MULTIVITAMIN 1 TABLET 1 TAB PO (11:48)
[2021-09-27] MEDS: CEFEPIME 1 GM in SODIUM CHLORIDE 0.9% 100 ML IV (12:00)
[2021-09-27 12:43] LABS: PTT Partial Thromboplastin Tim 56 SECONDS (26.4-36.2)
[2021-09-27] MEDS: lisinopriL 10 MG TABLET PO (12:45)
--- NOTE | 2021-09-27 14:41 | PM.PN.1 ---
Subjective Subjective Interval history: Patient had a hypertensive emergency event overnight that likely precipitated pulmonary edema. She's improved with IV nitroglycerin and IV diuresis. Will start PO lisinopril today at a relatively small dose, and uptitrate slowly for better BP control. Can also start Imdur as tolerated, too. Exam Vital Signs (past 8 hours): - 09/27/21 08:30 09/27/21 09:51 09/27/21 10:01 Temperature 97.6 F Pulse Rate 66 69 69 Respiratory Rate 26 H 24 Blood Pressure 135/61 Pulse Oximetry 100 94 09/27/21 12:11 09/27/21 13:19 Temperature 97.7 F Pulse Rate 75 Respiratory Rate Blood Pressure 144/63 H Pulse Oximetry 99 Oxygen Delivery Method High Flow Nasal Cannula Oxygen Flow Rate 15 Narrative Exam Narrative: Const Other: Patient laying in bed comfortably upon my entering the room, watching TV, and in no apparent, acute distress. Eyes Other: No scleral icterus appreciated. Neck Other: No carotid bruits appreciated. Resp Other: Faint end-expiratory wheezes appreciated to mid and lower lung zones bilaterally. Cardio Other: RRR. S1 and S2 appreciated with no additional heart sounds heard. Faint systolic ejection murmur heard best over the left upper sternal border. GI Other: Soft, non-distended, non-tender. Bowel sounds present. Extrem Other: Palpable and bilaterally equal radial and dorsalis pedis pulses. Objective Labs Result Diagrams: 09/26/21 21:28 09/27/21 04:38 Labs: Laboratory Results - last 24 hr 09/26/21 09/26/21 09/26/21 21:28 21:28 21:28 WBC 8.4 D RBC 4.86 Hgb 13.8 Hct 40.6 MCV 83.6 MCH 28.4 MCHC 33.9 RDW 14.5 Plt Count 133 L APTT D-Dimer ABG pH ABG pCO2 ABG pO2 ABG HCO3 ABG Total CO2 ABG O2 Saturation ABG Base Excess VBG pH VBG pCO2 VBG pO2 VBG HCO3 VBG Total CO2 VBG O2 Saturation VBG Base Excess FiO2 Sodium 134 L Potassium 4.2 Chloride 102 Carbon Dioxide 31 BUN 19 H Creatinine 0.87 Estimated GFR > 60.0 BUN/Creatinine Ratio 21.8 Glucose 93 Lactate 3.2 H Calcium 9.8 Magnesium Total Bilirubin 0.9 AST 40 H ALT 20 Alkaline Phosphatase 47 Troponin I 0.130 H* NT-Pro-B Natriuret Pep Total Protein 6.3 Albumin 3.5 Globulin 2.8 Albumin/Globulin Ratio 1.3 Procalcitonin 09/26/21 09/26/21 09/26/21 21:28 21:28 22:12 WBC RBC Hgb Hct MCV MCH MCHC RDW Plt Count APTT D-Dimer 932 H ABG pH ABG pCO2 ABG pO2 ABG HCO3 ABG Total CO2 ABG O2 Saturation ABG Base Excess VBG pH 7.44 H VBG pCO2 40.0 L VBG pO2 32 L VBG HCO3 27 VBG Total CO2 28 VBG O2 Saturation 65 L VBG Base Excess 3.0 FiO2 Sodium Potassium Chloride Carbon Dioxide BUN Creatinine Estimated GFR BUN/Creatinine Ratio Glucose Lactate Calcium Magnesium Total Bilirubin AST ALT Alkaline Phosphatase Troponin I NT-Pro-B Natriuret Pep 3420 H Total Protein Albumin Globulin Albumin/Globulin Ratio Procalcitonin 0.12 09/26/21 09/27/21 09/27/21 22:31 04:38 04:38 WBC RBC Hgb Hct MCV MCH MCHC RDW Plt Count APTT 46 H D D-Dimer ABG pH 7.50 H ABG pCO2 33.1 L ABG pO2 126 H ABG HCO3 26 ABG Total CO2 27 ABG O2 Saturation 99 ABG Base Excess 3.0 H VBG pH VBG pCO2 VBG pO2 VBG HCO3 VBG Total CO2 VBG O2 Saturation VBG Base Excess FiO2 100 Sodium Potassium Chloride Carbon Dioxide BUN Creatinine Estimated GFR BUN/Creatinine Ratio Glucose Lactate Calcium Magnesium Total Bilirubin AST ALT Alkaline Phosphatase Troponin I 0.121 H* NT-Pro-B Natriuret Pep Total Protein Albumin Globulin Albumin/Globulin Ratio Procalcitonin 09/27/21 09/27/21 09/27/21 04:38 04:38 04:38 WBC RBC Hgb Hct MCV MCH MCHC RDW Plt Count APTT D-Dimer ABG pH ABG pCO2 ABG pO2 ABG HCO3 ABG Total CO2 ABG O2 Saturation ABG Base Excess VBG pH VBG pCO2 VBG pO2 VBG HCO3 VBG Total CO2 VBG O2 Saturation VBG Base Excess FiO2 Sodium 133 L Potassium 4.3 Chloride 101 Carbon Dioxide 31 BUN 19 H Creatinine 0.94 Estimated GFR 56.7 L BUN/Creatinine Ratio 20.2 Glucose 194 H D Lactate 2.1 Calcium 9.2 Magnesium 1.7 Total Bilirubin 0.9 AST 38 H ALT 19 Alkaline Phosphatase 45 Troponin I NT-Pro-B Natriuret Pep Total Protein 6.0 L Albumin 3.2 L Globulin 2.8 Albumin/Globulin Ratio 1.1 Procalcitonin 09/27/21 09/27/21 08:10 12:21 WBC RBC Hgb Hct MCV MCH MCHC RDW Plt Count APTT 56 H D D-Dimer ABG pH ABG pCO2 ABG pO2 ABG HCO3 ABG Total CO2 ABG O2 Saturation ABG Base Excess VBG pH VBG pCO2 VBG pO2 VBG HCO3 VBG Total CO2 VBG O2 Saturation VBG Base Excess FiO2 Sodium Potassium Chloride Carbon Dioxide BUN Creatinine Estimated GFR BUN/Creatinine Ratio Glucose Lactate 3.0 H Calcium Magnesium Total Bilirubin AST ALT Alkaline Phosphatase Troponin I NT-Pro-B Natriuret Pep Total Protein Albumin Globulin Albumin/Globulin Ratio Procalcitonin PFSH Medical History (Updated 09/25/21 @ 10:35 by Jean Ta DO) Aneurysm of infrarenal abdominal aorta Bilateral carpal tunnel syndrome CAD (coronary artery disease) COPD (chronic obstructive pulmonary disease) with emphysema Elevated TSH HTN (hypertension) Hyperlipidemia Unstable angina Valvular heart disease Surgical History H/O hysterectomy with oophorectomy H/O three vessel coronary artery bypass Hx of heart artery stent Status post cholecystectomy Family History (Updated 09/15/21 @ 15:39 by Yessica Torres MD) Father Lung cancer Mother COPD (chronic obstructive pulmonary disease) Social History household members: family and children Smoking Status: Former smoker alcohol intake: never Assessment & Plan Assessment & Plan narrative: Assessment: 1. NSTEMI, acute 2. HFrEF (EF 30-35%), likely ischemic etiology, chronic3. Hypertensive emergency with pulmonary edema, resolved 4. Pre-renal AZUL or cardiorenal, resolved 5. Hypertension 6. Hx of COPD, emphysema, stable 7. Image findings consistent with interstitial lung disease (ILD) 8. Positive COVID, asymptomatic 9. Hypothyroidism Plan: 1. Troponin peaked at 0.4, downtrending. Of note, patient with positive myocardial perfusion study in Aug 2021. Aspirin 324 mg one-time administered. IV heparin on-board and will stop after 48 hrs. Atorvastatin already at high-intensity dose. Aspirin 81 mg daily. Clopidogrel 75 mg daily on-board. Cardiology consulted in ER: they recommend medical management for now, as she had patent coronaries on left heart catheterization from approximately 1 year ago. 2. Lasix and home lisinopril held initially due to AZUL. The Cr improved with slight fluids, suggesting a dehydration source, especially as he and her son say she was not eating and drinking at home prior to admission. Will resume lisinopril today. Has allergies to multiple beta blockers, precluding their use. 3. IV Lasix and IV nitroglycerin were effective. Continuing IV Lasix today. Will transition to PO anti-HTN meds. 4. Likely brought on by decreased fluid intake over the past several days, due to positive COVID.? 5. Can resume lisinopril as renal function improves. 6. Will resume home maintenance inhaler therapy. She uses 2 liters oxygen at night at home. 7. Possible ILD, based on lung imaging. Patient denies hx of SLE, RA, or other autoimmune diseases. She's been strongly encouraged to establish care with an outpatient tail board worker. 8. Likely acquired at home. Patient is unvaccinated. There does not appear to be a respiratory component. 9. Will resume home levothyroxine 75 mg daily. VTE prophylaxis: IV heparin, as per problem 1. Disposition: Likely discharge home after completing 48 hrs of medical management for NSTEMI. Time Spent With Patient Critical Care time: I spent a total of [] minutes of critical care time on this patient's care today; this time is exclusive of procedural time. Quality VTE Deep Vein Thrombosis/Pulmonary Embolism Present on Admission: No
[2021-09-27] MEDS: lisinopriL 10 MG TABLET 30 MG PO (17:00)
[2021-09-27] MEDS: ISOSORBIDE MONONITRATE ER 30 MG TABLET PO (19:00)
--- NOTE | 2021-09-27 19:02 | PC.NURSE ---
Pt continues with HTN, added additional lisinopril then later Imdur. Pt has dc order now for heparin.
--- NOTE | 2021-09-27 20:03 | PM.ICURNDS ---
- :: This patient was seen via real time interactive two-way audiovisual telecommunication. Note: Multidisciplinary rounds completed. Currently down to 3.5 liters NC. Off heparin infusion per [facility] protocol. COVID positive on decadron. Continue diuresis to seek net negative fluid balance and weaning down supplemental oxygen to maintain goal SPo2> 88%. D/w RN.
[2021-09-27] MEDS: CEFEPIME 1 GM in SODIUM CHLORIDE 0.9% 100 ML 200 ML IV (21:19)
[2021-09-27] MEDS: ATORVASTATIN 20 MG TABLET 40 MG PO (21:19)
[2021-09-28] VITALS (8 sets, daily range): BP systolic 133–165; BP diastolic 63–72; PULSE 68–88; RESP 20–36; TEMP 36.4; O2SAT 93–96
[2021-09-28] MEDS: ISOSORBIDE MONONITRATE ER 30 MG TABLET PO (06:20)
[2021-09-28] MEDS: LEVOTHYROXINE 75 MCG TABLET PO (06:20)
--- NOTE | 2021-09-28 06:34 | PC.NURSE ---
0600- Patient had a restful night. Good results from Lasix. Lungs are clear. Afebrile. Patient is hoping to go home today.
[2021-09-28] MEDS: ALBUTEROL 2.5 MG/3 ML NEB (ADULT) INH ×2 (07:41→11:31)
[2021-09-28] MEDS: BUDESONIDE 0.5 MG/2 ML NEB INH (07:41)
[2021-09-28 11:29] LABS: BUN Creatinine Ratio 21.8 (6-22); Blood Urea Nitrogen 24 mg/dL (7-17); Calcium 9.9 mg/dL (8.4-10.2); Carbon Dioxide 32 mmol/L (22-32); Chloride 101 mmol/L (98-107); Estimated Glomerular Filt Rate 47.3 mL/min (>60); Glucose 113 mg/dL (80-110); HEMOLYSIS < 15 (0-50); Magnesium 1.9 mg/dL (1.6-2.3); Potassium 3.6 mmol/L (3.4-5.1); Sodium 137 mmol/L (137-145)
[2021-09-28] MEDS: DEXAMETHASONE 10 MG/ML VIAL 6 MG IV (11:51)
[2021-09-28] MEDS: FUROSEMIDE 40 MG/4 ML VIAL IV (11:51)
[2021-09-28] MEDS: CLOPIDOGREL 75 MG TABLET PO (11:51)
[2021-09-28] MEDS: MULTIVITAMIN 1 TABLET 1 TAB PO (11:51)
[2021-09-28] MEDS: ASPIRIN EC 81 MG TABLET PO (11:52)
[2021-09-28] MEDS: SODIUM CHLORIDE 0.9% FLUSH 10 ML IV (11:53)
[2021-09-28] MEDS: CEFEPIME 1 GM in SODIUM CHLORIDE 0.9% 100 ML 200 ML IV (11:53)
[2021-09-28] MEDS: VANCOMYCIN 1,000 MG/200 ML PIGGYBACK 200 MG IV (11:54)
[2021-09-28] MEDS: lisinopriL 10 MG TABLET 40 MG PO (12:00)
--- NOTE | 2021-09-28 13:39 | PC.NURSE ---
Addendum entered by Pearl Rivas R.N. 09/28/21 14:57: discharge to home at this time Original Note: PT HOPEFUL FOR DISCHARGE LATER THIS DAY ABLE TO BE WEANED DOWN TO 2L AT ALL TIMES AND SHE USUALLY USES O2 @ 2L just during noc- RT to contact pt and set up new order for pt with her oxygen provider- awaiting dc orders and instructions for dc- removed iv access x 3
--- NOTE | 2021-09-28 14:32 | PM.PN.1 ---
Subjective Subjective Interval history: Patient reports feeling much better this morning. She denies any events overnight. She understands that she needs to restrict her fluid intake to a greater degree outpatient. She also understands that she needs to take dual antiplatelet therapy in order to hopefully prevent another NSTEMI recurrence. She very much wants to go home today. I spoke with her son Fede yesterday and updated him on the patient's medical condition. Exam Vital Signs (past 8 hours): - 09/28/21 07:45 09/28/21 08:00 09/28/21 11:00 Temperature Pulse Rate 85 Respiratory Rate 20 22 Blood Pressure 153/68 H Pulse Oximetry 96 96 94 09/28/21 11:12 09/28/21 11:40 Temperature 97.5 F L Pulse Rate 84 Respiratory Rate 30 H 28 H Blood Pressure 133/72 Pulse Oximetry 93 94 Oxygen Delivery Method Nasal Cannula Oxygen Flow Rate 2 Narrative Exam Narrative: Const Other: Patient laying in bed comfortably upon my entering the room, watching TV, and in no apparent, acute distress. Eyes Other: No scleral icterus appreciated. Neck Other: No carotid bruits appreciated. Resp Other: Lungs clear to auscultation bilaterally, although with diminished air exchange. Cardio Other: RRR. S1 and S2 appreciated with no additional heart sounds heard. Faint systolic ejection murmur heard best over the left upper sternal border. GI Other: Soft, non-distended, non-tender. Bowel sounds present. Extrem Other: Palpable and bilaterally equal radial and dorsalis pedis pulses. Objective Labs Result Diagrams: 09/26/21 21:28 09/28/21 10:40 Labs: Laboratory Results - last 24 hr 09/28/21 10:40 Sodium 137 Potassium 3.6 Chloride 101 Carbon Dioxide 32 BUN 24 H Creatinine 1.10 H Estimated GFR 47.3 L BUN/Creatinine Ratio 21.8 Glucose 113 H Calcium 9.9 Magnesium 1.9 PFSH Medical History (Updated 09/25/21 @ 10:35 by Jean Ta DO) Aneurysm of infrarenal abdominal aorta Bilateral carpal tunnel syndrome CAD (coronary artery disease) COPD (chronic obstructive pulmonary disease) with emphysema Elevated TSH HTN (hypertension) Hyperlipidemia Unstable angina Valvular heart disease Surgical History H/O hysterectomy with oophorectomy H/O three vessel coronary artery bypass Hx of heart artery stent Status post cholecystectomy Family History (Updated 09/15/21 @ 15:39 by Yessica Torres MD) Father Lung cancer Mother COPD (chronic obstructive pulmonary disease) Social History household members: family and children Smoking Status: Former smoker alcohol intake: never Assessment & Plan Assessment & Plan narrative: Assessment: 1. NSTEMI, acute 2. HFrEF (EF 30-35%), likely ischemic etiology, chronic3. Hypertensive emergency with pulmonary edema, resolved 4. Pre-renal AZUL or cardiorenal, resolved 5. Hypertension 6. Hx of COPD, emphysema, stable 7. Image findings consistent with interstitial lung disease (ILD) 8. Positive COVID, asymptomatic 9. Hypothyroidism Plan: 1. Troponin peaked at 0.4, downtrending. Of note, patient with positive myocardial perfusion study in Aug 2021. Aspirin 324 mg one-time administered. IV heparin on-board for 48 hrs. Atorvastatin already at high-intensity dose. Aspirin 81 mg daily. Clopidogrel 75 mg daily on-board. Cardiology consulted in ER: they recommend medical management for now, as she had patent coronaries on left heart catheterization from approximately 1 year ago. 2. Lasix and home lisinopril held initially due to AZUL. The Cr improved with slight fluids, suggesting a dehydration source, especially as he and her son say she was not eating and drinking at home prior to admission. Will resume lisinopril. Has allergies to multiple beta blockers, precluding their use. 3. IV Lasix and IV nitroglycerin were effective. Transitioned to PO anti-HTN meds. 4. Likely brought on by decreased fluid intake over the past several days, due to positive COVID.? 5. Can resume lisinopril as renal function improves. 6. Will resume home maintenance inhaler therapy. She uses 2 liters oxygen at night at home. 7. Possible ILD, based on lung imaging. Patient denies hx of SLE, RA, or other autoimmune diseases. She's been strongly encouraged to establish care with an outpatient turbine technician. 8. Likely acquired at home. Patient is unvaccinated. There does not appear to be a respiratory component. 9. Will resume home levothyroxine 75 mg daily. Time Spent With Patient Critical Care time: I spent a total of [] minutes of critical care time on this patient's care today; this time is exclusive of procedural time. Quality VTE Deep Vein Thrombosis/Pulmonary Embolism Present on Admission: No
--- NOTE | 2021-09-28 14:37 | P.DS_ITS ---
History of Present Illness History of Present Illness Chief complaint: CP covid+ Narrative: 85yo female with a hx of CAD status post triple-bypass CABG (2006), HFrEF (EF 35-40%), likely ischemic in etiology, hypothyroidism, hypertension, and COPD emphysema that requires 2 liters of oxygen at night that presents with not feeling well. The patient reports living with family in [place], who help take care of her. She states that early this morning, she wasn't feeling well and looked unwell to her family, that is why they called an ambulance. She denies CP at that time, or current, active CP. She endorses having IL's in the past, and denies that this feels like that. She denies doing anything physically or emotionally taxing at this time. She denies any recent coronary stenting history. She denies n/v, abd pain, fever/chills, cough, URI sxs, worsening SOB, night sweats. She does endorse, however, having low appetite over the past couple of days. She believes this is because of being COVID positive. She denies there being any respiratory component to her COVID. The patient has a remote hx of smoking cigarettes, having quit in 1969. She has a 17-pack yr hx. She denies EtOH or other drug use. PSH is positive for the aforementioned CABG, along with cholecystectomy and tonsillar adenoids removed as a child. 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 Discharge Providers Provider Date of admission: 09/25/21 11:03 Discharge Date: 09/28/21 Primary care physician: Allie Fleming MD Consults: 09/25/21 13:08 Consult to Dietitian, Adult Routine Comment: poor intake for last week Reason For Exam: mini nutrition exam score on admit 09/26/21 21:33 Consult to Tele-associate software development engineer Routine Comment: Consulting Provider: [employer] Reason for consultation: Short Haul Driver services Has provider been notified: No Discharge provider: Shiva Kelley MD Summary Hospital Course Discharge Diagnosis: Assessment: 1. NSTEMI, acute 2. HFrEF (EF 30-35%), likely ischemic etiology, chronic3. Hypertensive emergency with pulmonary edema, resolved 4. Pre-renal AZUL or cardiorenal, resolved 5. Hypertension 6. Hx of COPD, emphysema, stable 7. Image findings consistent with interstitial lung disease (ILD) 8. Positive COVID, asymptomatic 9. Hypothyroidism Plan: 1. Troponin peaked at 0.4, downtrending. Of note, patient with positive myocardial perfusion study in Aug 2021. Aspirin 324 mg one-time administered. IV heparin on-board for 48 hrs. Atorvastatin already at high-intensity dose. A spirin 81 mg daily. Clopidogrel 75 mg daily on-board. Cardiology consulted in ER: they recommend medical management for now, as she had patent coronaries on left heart catheterization from approximately 1 year ago. Patient will continue on dual-antiplatelet therapy outpatient. 2. Lasix and home lisinopril held initially due to AZUL. The Cr improved with slight fluids, suggesting a dehydration source, especially as he and her son say she was not eating and drinking at home prior to admission. Will resume lisinopril. Has allergies to multiple beta blockers, precluding their use. 3. IV Lasix and IV nitroglycerin were effective. Transitioned to PO anti-HTN meds. 4. Likely brought on by decreased fluid intake over the past several days, due to positive COVID.? 5. Can resume lisinopril as renal function improves. 6. Will resume home maintenance inhaler therapy. She uses 2 liters oxygen at night at home. 7. Possible ILD, based on lung imaging. Patient denies hx of SLE, RA, or other autoimmune diseases. She's been strongly encouraged to establish care with an outpatient career development counselor. 8. Likely acquired at home. Patient is unvaccinated. There does not appear to be a respiratory component. 9. Will resume home levothyroxine 75 mg daily. I spoke with Dr. Meehan on Sep 26 and informed him of patient's return with NSTEMI, in light of positive myocardial perfusion study in Aug 2021. He informed me that the patient underwent left heart catheterization approximately 1 year ago, and showed patent vessels. He does not believe left heart catheterization is warranted at this time, and recommended medical management of her NSTEMI. Exam Vital Signs (past 8 hours): - 09/28/21 07:45 09/28/21 08:00 09/28/21 11:00 Temperature Pulse Rate 85 Respiratory Rate 20 22 Blood Pressure 153/68 H Pulse Oximetry 96 96 94 09/28/21 11:12 09/28/21 11:40 Temperature 97.5 F L Pulse Rate 84 Respiratory Rate 30 H 28 H Blood Pressure 133/72 Pulse Oximetry 93 94 Oxygen Delivery Method Nasal Cannula Oxygen Flow Rate 2 Objective Labs Result Diagrams: 09/26/21 21:28 09/28/21 10:40 Labs: Laboratory Results - last 24 hr 09/28/21 10:40 Sodium 137 Potassium 3.6 Chloride 101 Carbon Dioxide 32 BUN 24 H Creatinine 1.10 H Estimated GFR 47.3 L BUN/Creatinine Ratio 21.8 Glucose 113 H Calcium 9.9 Magnesium 1.9 PFSH Medical History (Updated 09/25/21 @ 10:35 by Jean Ta DO) Aneurysm of infrarenal abdominal aorta Bilateral carpal tunnel syndrome CAD (coronary artery disease) COPD (chronic obstructive pulmonary disease) with emphysema Elevated TSH HTN (hypertension) Hyperlipidemia Unstable angina Valvular heart disease Surgical History H/O hysterectomy with oophorectomy H/O three vessel coronary artery bypass Hx of heart artery stent Status post cholecystectomy Family History (Updated 09/15/21 @ 15:39 by Yessica Torres MD) Father Lung cancer Mother COPD (chronic obstructive pulmonary disease) Social History household members: family and children Smoking Status: Former smoker alcohol intake: never Discharge Assessment & Plan Assessment and Plan Assessment: Assessment: 1. NSTEMI, acute 2. 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 Hypertensive emergency with pulmonary edema, resolved 4. Pre-renal AZUL or cardiorenal, resolved 5. Hypertension 6. Hx of COPD, emphysema, stable 7. Image findings consistent with interstitial lung disease (ILD) 8. Positive COVID, asymptomatic 9. Hypothyroidism Plan: 1. Troponin peaked at 0.4, downtrending. Of note, patient with positive myocardial perfusion study in Aug 2021. Aspirin 324 mg one-time administered. IV heparin on-board for 48 hrs. Atorvastatin already at high-intensity dose. Aspirin 81 mg daily. Clopidogrel 75 mg daily on-board. Cardiology consulted in ER: they recommend medical management for now, as she had patent coronaries on left heart catheterization from approximately 1 year ago. Patient will continue on dual-antiplatelet therapy outpatient. 2. Lasix and home lisinopril held initially due to AZUL. The Cr improved with slight fluids, suggesting a dehydration source, especially as he and her son say she was not eating and drinking at home prior to admission. Will resume lisinopril. Has allergies to multiple beta blockers, precluding their use. 3. IV Lasix and IV nitroglycerin were effective. Transitioned to PO anti-HTN meds. 4. Likely brought on by decreased fluid intake over the past several days, due to positive COVID.? 5. Can resume lisinopril as renal function improves. 6. Will resume home maintenance inhaler therapy. She uses 2 liters oxygen at night at home. 7. Possible ILD, based on lung imaging. Patient denies hx of SLE, RA, or other autoimmune diseases. She's been strongly encouraged to establish care with an outpatient career development counselor. 8. Likely acquired at home. Patient is unvaccinated. There does not appear to be a respiratory component. 9. Will resume home levothyroxine 75 mg daily. I spoke with Dr. Meehan on Sep 26 and informed him of patient's return with NSTEMI, in light of positive myocardial perfusion study in Aug 2021. He informed me that the patient underwent left heart catheterization approximately 1 year ago, and showed patent vessels. He does not believe left heart catheterization is warranted at this time, and recommended medical management of her NSTEMI. Discharge Plan Discharge Plan Patient Disposition: Home Discharge orders & Medications Prescriptions: New clopidogrel 75 mg Tablet 75 mg PO DAILY 90 Days Qty: 90 4RF Continued aspirin 81 MG tablet,delayed release (DR/EC) 81 mg PO QDAY Qty: 0 0RF lisinopril 40 mg Tablet 40 mg PO DAILY 0RF atorvastatin [Lipitor] 20 mg Tablet 40 mg PO BEDTIME Qty: 180 0RF Label Comments: patient states she forgets to take levothyroxine 75 mcg tablet 75 mcg PO DAILY 0RF albuterol sulfate 90 mcg/actuation HFA aerosol inhaler 2 puff Inhalation Q4H PRN (Reason: Shortness Of Breath) 0RF fluticasone propion-salmeterol [Advair Diskus] 250-50 mcg/dose Blister With Device 1 inh INHALATION BID 0RF Label Comments: patient states on Advair. no record in RX processes. Also states unsure of when and how often she is supposed to use various inhalers. omega [id number] oil [Fish Oil] 1,000 mg (120 mg-180 mg) Capsule 1,000 mg PO DAILY 0RF nitroglycerin [Nitrostat] 0.4 mg Tablet, Sublingual 0.4 mg SUBLINGUAL Q5-15M PRN (Reason: Chest Pain) 0RF fluticasone propionate [Flonase Allergy Relief] 50 mcg/actuation Ladd,Suspension 1 spray Intranasal BID PRN (Reason: Allergy Symptoms) 0RF vitamin E 400 unit Capsule 400 unit PO DAILY 0RF multivitamin Tablet,Chewable 1 tab PO DAILY 0RF ipratropium-albuterol 0.5 mg-3 mg(2.5 mg base)/3 mL solution for nebulization 3 ml INHALATION Q6-8H PRN (Reason: shortness of breath or wheezing) Qty: 90 0RF furosemide [Lasix] 20 mg tablet 20 mg PO BID Qty: 6 0RF Follow up/Referrals: Allie Fleming MD [Primary Care Provider] - Discharge Data Primary Care Provider: Allie Fleming Quality VTE Deep Vein Thrombosis/Pulmonary Embolism Present on Admission: No
== END 2021-09-28 14:57 | disposition home or self-care (01) | DRG 280 ==
LOC: ED 10:36 → AC 12:14 → ICU 12:35 → AC 09-26 09:16 → ICU 09-26 09:25
PROVIDERS: Emergency Medicine; Internal Medicine; Internal Medicine Pulmonary Disease; Admitting Provider Student in an Organized Health Care Education/Training Program; Emergency Provider Emergency Medicine; Family Provider Internal Medicine; PCP Internal Medicine; Referring Provider Emergency Medicine; Visit Provider Student in an Organized Health Care Education/Training Program
DX: I21.4 Non-ST elevation (NSTEMI) myocardial infarction (principal); U07.1 COVID-19; I50.23 Acute on chronic systolic (congestive) heart failure; J96.21 Acute and chronic respiratory failure with hypoxia; N17.9 Acute kidney failure, unspecified; J44.1 Chronic obstructive pulmonary disease with (acute) exacerbation; I11.0 Hypertensive heart disease with heart failure; I16.0 Hypertensive urgency; E03.9 Hypothyroidism, unspecified; E78.5 Hyperlipidemia, unspecified; I25.10 Atherosclerotic heart disease of native coronary artery without angina pectoris; Z95.1 Presence of aortocoronary bypass graft; Z95.5 Presence of coronary angioplasty implant and graft; Z87.891 Personal history of nicotine dependence
CPT/HCPCS: 36415; 36600; 71045; 71275; 80048; 80053; 82550; 82728; 82805; 83605; 83615; 83735; 83880; 84145; 84484; 85025; 85027; 85379; 85730; 86140; 87040; 87070; 87150; 87205; 87635; 93005; 94640; 94762; 96361; 96365; 96366; 96375; 96376; 99285; C9803; A9270; J0692; J1100; J1644; J1940; J2930; J7613; Q9967

== ENCOUNTER 2021-10-10 20:59 | Emergency (ER) | payer OTHER, SELFPAY ==
[2021-09-25 13:04] VITALS: BMI 23.0
[2021-10-10 21:07] VITALS: BP 127/69; PULSE 89; RESP 24; TEMP 36.7; O2SAT 93
--- NOTE | 2021-10-10 22:07 | ED.EPISTAXIS ---
HPI - Epistaxis General Chief complaint: Nasal Problem Stated complaint: nose bleed x2 hours Time Seen by Provider: 10/10/21 21:45 Source: patient Mode of arrival: Ambulatory Limitations: no limitations History of Present Illness HPI Narrative: This is an 85-year-old female who comes emergency department for complaint of epistaxis for the past 2 hours. She had a small amount yesterday. She has been using tissue or Kleenex putting it in her nose and then removing it and will have blood on it. She states she has not really been having it run out of her nose. Patient has a history of COPD and was on home O2 in the evenings only but had COVID fairly recently and was increased the O2 24 hours a day. She is on aspirin and Plavix daily. She has not had persistent or recurrent nose bleeds normally. She does not recall any additional trauma but her nose feels dry. She has a spray that she sometimes uses but does not recall the name. She has had nasal surgery in the past remotely. She denies any other symptoms besides having some draining down the back of her throat and feeling slightly nauseated earlier. Related Data Home Medications Medication Instructions Recorded Confirmed aspirin 81 mg tablet,delayed 81 mg PO QDAY #0 07/11/17 09/25/21 release lisinopril 40 mg tablet 40 mg PO DAILY 04/19/18 09/25/21 albuterol sulfate 90 mcg/actuation 2 puff INHALATION Q4H PRN 07/07/18 09/25/21 aerosol inhaler fluticasone 250 mcg-salmeterol 50 1 inh INHALATION BID 07/07/18 09/25/21 mcg/dose blistr powdr for inhalation (Advair Diskus) fluticasone propionate 50 1 spray INTRANASAL BID PRN 07/07/18 09/25/21 mcg/actuation nasal spray,suspension (Flonase Allergy Relief) levothyroxine 75 mcg tablet 75 mcg PO DAILY 07/07/18 09/25/21 multivitamin 1 tab PO DAILY 07/07/18 09/25/21 nitroglycerin 0.4 mg sublingual 0.4 mg SUBLINGUAL Q5-15M PRN 07/07/18 09/25/21 tablet (Nitrostat) omega 4-vnp-wza-fish oil 1,000 mg 1,000 mg PO DAILY 07/07/18 09/25/21 (120 mg-180 mg) capsule (Fish Oil) vitamin E 400 unit capsule 400 unit PO DAILY 07/07/18 09/25/21 Previous Rx's Medication Instructions Recorded atorvastatin 20 mg tablet (Lipitor) 40 mg PO BEDTIME #180 tab 04/20/18 ipratropium 0.5 mg-albuterol 3 mg 3 ml INHALATION Q6-8H PRN #90 ml 11/04/18 (2.5 mg base)/3 mL nebulization soln furosemide 20 mg tablet (Lasix) 20 mg PO BID #6 tab 01/16/19 clopidogrel 75 mg tablet 75 mg PO DAILY 90 Days #90 tab 09/28/21 Allergies Allergy/AdvReac Type Severity Reaction Status Date / Time acarbose Allergy Intermediate Abdominal Verified 09/15/21 12:59 Pain amlodipine Allergy Intermediate Verified 09/15/21 12:59 chlorthalidone Allergy Intermediate Redness of Verified 09/15/21 12:59 Skin doxazosin [From Cardura] Allergy Intermediate Rash Verified 09/15/21 12:59 doxycycline Allergy Intermediate Rash Verified 09/15/21 12:59 gemfibrozil Allergy Intermediate Rash Verified 09/15/21 12:59 levofloxacin Allergy Intermediate Rash Verified 09/15/21 12:59 losartan Allergy Intermediate Rash Verified 09/15/21 12:59 metoprolol Allergy Intermediate Verified 09/15/21 12:59 montelukast [From Singulair] Allergy Intermediate Difficulty Verified 09/15/21 12:59 Breathing nifedipine Allergy Intermediate Chills Verified 09/15/21 12:59 Sulfa (Sulfonamide Allergy Intermediate rash Verified 09/15/21 12:59 Antibiotics) sulfamethoxazole Allergy Intermediate Rash Verified 09/15/21 12:59 [From Bactrim] trimethoprim [From Bactrim] Allergy Intermediate Rash Verified 09/15/21 12:59 budesonide [From Symbicort] Allergy Mild Anxiety Verified 09/15/21 12:59 carvedilol Allergy Mild Rash Verified 09/15/21 12:59 choline fenofibrate Allergy Mild Gastrointestinal Verified 09/15/21 12:59 [From Trilipix] Upset formoterol [From Symbicort] Allergy Mild Anxiety Verified 09/15/21 12:59 Review of Systems Review of Systems ROS Unobtainable: All systems reviewed & are unremarkable except as noted in HPI and below Patient History Medical History (Updated 10/10/21 @ 22:48 by Shayla Kaba DO) Aneurysm of infrarenal abdominal aorta Bilateral carpal tunnel syndrome CAD (coronary artery disease) COPD (chronic obstructive pulmonary disease) with emphysema Elevated TSH HTN (hypertension) Hyperlipidemia Unstable angina Valvular heart disease Surgical History H/O hysterectomy with oophorectomy H/O three vessel coronary artery bypass Hx of heart artery stent Status post cholecystectomy Family History Father Lung cancer Mother COPD (chronic obstructive pulmonary disease) Social History household members: family and children Smoking Status: Former smoker alcohol intake: never Smoking Status: Former smoker alcohol intake frequency: 0-2 drinks per day Substance Use Type: does not use Exam Narrative Exam Narrative: GEN: well nourished, well appearing female, alert and oriented x 3, patient appears to be in mild distress. HEENT: Atraumatic, pupils are equal round reactive to light, extraocular movements are intact, patient's left nares clear, her right has scab that appears dry without any active bleeding on the septum. Patient does not have any other trauma appreciated. Are clear with no fluid, there is no conjunctival pallor. Throat is clear without any exudates, erythema, tonsillar enlargement or uvular deviation. HEART: Regular rate and rhythm without murmur, clicks, rubs. LUNGS:Lungs clear to auscultation, no wheezes, rales, crackles, chest moves symmetrically ABD:bowel sounds normal, soft, non-tender, no guarding, rebound, rigidity, no masses noted, no hepatosplenomegaly MSCL: Non-tender, full range of motion, normal gait NEURO:CN 2-12 intact, sensation normal SKIN: No rash, petechiae or ecchymosis. Initial Vital Signs Initial Vital Signs: Vital Signs Temperature 98.1 F 10/10/21 21:07 Pulse Rate 89 10/10/21 21:07 Respiratory Rate 24 10/10/21 21:07 Blood Pressure 127/69 10/10/21 21:07 Pulse Oximetry 93 10/10/21 21:07 Course Orders Ordered: Discontinued Medications Oxymetazoline HCl (Oxymetazoline Nasal [place] 15 Ml) 2 sprays NASAL NOW ONE Stop: 10/10/21 22:20 Last Admin: 10/10/21 22:36 Dose: 2 sprays Documented by: MARC Reevaluation(s) Reevaluation #1: Patient had nasal clamp in place. Removed for 30 minutes without any bleeding. Time: 22:46 Vital Signs Vital signs: Vital Signs - 8 hr 10/10/21 21:07 Temperature 98.1 F Pulse Rate 89 Respiratory Rate 24 Blood Pressure 127/69 Pulse Oximetry 93 MDM - Epistaxis MDM Narrative Medical decision making narrative: This is an 85-year-old female comes emergency department complaint of epistaxis. Patient has not had active bleeding out her nose but or that she keep stabbing with a Kleenex continues to have blood. She is on O2 and went from having oxygen just in the evenings 24 hours a day likely drying out her nasal passages and she has had a prior nasal surgery in the past she notes. Patient has not had persistent irregular nose bleeds. She is on aspirin and Plavix daily. With nasal clamp but no additional intervention patient's bleeding was controlled she was given Afrin along with clean for home and was monitored for 1/2 hour after clamp was removed. She tolerated this with her oxygen and we discussed moisturizing the nasal passages may be helpful or having a humidifier. I did discuss avoiding petroleum type products such as Vaseline as this can be flammable with oxygen. Return precautions were discussed and referral was also given to ENT. It was noted she had an area of scab which is likely the source of her bleeding which has stopped so she was not cauterized. Discharge Plan Departure Patient Disposition: Home Clinical Impression: Epistaxis Instructions: DI for Nosebleed Activity Restrictions/Additional Instructions: Follow-up with the ENT specialist provided. Follow directions as noted below. Return to emergency department if self-care directions do not work and urine able to stop the bleeding, or if you become lightheaded, began vomiting. Use medications as directed. Your new inhaler is the generic version of Advair. Nosebleed self-care - With the right self-care, most nosebleeds stop on their own. Here's what you should do: 1. Blow your nose. This might increase the bleeding for a moment, but that's OK. 2. Sit or stand while bending forward a little at the waist. DO NOT lie down or tilt your head back. 3. Pinch the soft area towards the bottom of your nose, below the bone (picture 1). DO NOT comprehensive ophthalmologist the bridge of your nose between your eyes. That will not work. DO NOT press on just 1 side, even if the bleeding is only on 1 side. That will not work either. 4. Squeeze your nose shut for at least 15 minutes. (In children, squeeze for only 5 minutes.) Use a clock to time yourself. Do not release the pressure before the time is up to check if the bleeding has stopped. If you keep checking, you will ruin your chances of getting the bleeding to stop. If you follow these steps, and your nose keeps bleeding, repeat all the steps once more. Apply pressure for a total of at least 30 minutes (or 10 minutes for children). If you are still bleeding, go to the emergency room or an urgent care clinic. What if I get repeated nosebleeds? - Frequent nosebleeds can be caused by: Breathing dry air all the time Using cold or allergy nasal sprays too much Frequent colds Snorting drugs into your nose, such as cocaine In some cases, repeat nosebleeds can be a sign that your blood does not clot like it should. If that is the case, there are often other clues. For instance, people with clotting problems bruise easily and might bleed more than you would expect after a small cut or scrape. Nosebleed treatment - If you end up seeing a doctor or nurse for your nosebleed, he or she will make sure you can breathe OK. Then he or she will try to get the bleeding to stop. To do that, he or she might have to put a device or some packing material up your nose. What can I do to keep from getting nosebleeds? - You can: Use a humidifier (a machine that makes the air less dry) in your bedroom when you sleep Keep the inside of your nose moist with a nasal saline spray or gel. Avoid petroleum products these can be flammable with oxygen. Not pick your nose, or at least clip your nails before you do to avoid injury Prescriptions: No Action aspirin 81 MG tablet,delayed release (DR/EC) 81 mg PO QDAY Qty: 0 0RF lisinopril 40 mg Tablet 40 mg PO DAILY 0RF atorvastatin [Lipitor] 20 mg Tablet 40 mg PO BEDTIME Qty: 180 0RF Label Comments: patient states she forgets to take levothyroxine 75 mcg tablet 75 mcg PO DAILY 0RF albuterol sulfate 90 mcg/actuation HFA aerosol inhaler 2 puff Inhalation Q4H PRN (Reason: Shortness Of Breath) 0RF fluticasone propion-salmeterol [Advair Diskus] 250-50 mcg/dose Blister With Device 1 inh INHALATION BID 0RF Label Comments: patient states on Advair. no record in RX processes. Also states unsure of when and how often she is supposed to use various inhalers. omega 0-soo-apu-fish oil [Fish Oil] 1,000 mg (120 mg-180 mg) Capsule 1,000 mg PO DAILY 0RF nitroglycerin [Nitrostat] 0.4 mg Tablet, Sublingual 0.4 mg SUBLINGUAL Q5-15M PRN (Reason: Chest Pain) 0RF fluticasone propionate [Flonase Allergy Relief] 50 mcg/actuation [place],Suspension 1 spray Intranasal BID PRN (Reason: Allergy Symptoms) 0RF vitamin E 400 unit Capsule 400 unit PO DAILY 0RF multivitamin Tablet,Chewable 1 tab PO DAILY 0RF ipratropium-albuterol 0.5 mg-3 mg(2.5 mg base)/3 mL solution for nebulization 3 ml INHALATION Q6-8H PRN (Reason: shortness of breath or wheezing) Qty: 90 0RF furosemide [Lasix] 20 mg tablet 20 mg PO BID Qty: 6 0RF clopidogrel 75 mg Tablet 75 mg PO DAILY 90 Days Qty: 90 4RF Referrals: Delmer Bosch MD [Physician] - Allie Fleming MD [Primary Care Provider] -
[2021-10-10] MEDS: OXYMETAZOLINE NASAL SPRAY 15 ML 2 SPRAYS NASAL (22:36)
== END 2021-10-10 22:55 | disposition home or self-care (01) ==
PROVIDERS: Emergency Provider Emergency Medicine; Family Provider Internal Medicine; PCP Internal Medicine
DX: R04.0 Epistaxis (principal)
CPT/HCPCS: 99282; 99284; A9270

== ENCOUNTER 2021-12-17 11:37 | Emergency (ER) | payer OTHER, SELFPAY ==
[2021-09-25 13:04] VITALS: BMI 23.0
[2021-12-17] VITALS (13 sets, daily range): BP systolic 133–198; BP diastolic 84–102; PULSE 91–100; RESP 22–40; TEMP 36.6; O2SAT 89–97; BMI 24.0
--- NOTE | 2021-12-17 11:46 | DI.RAD.S_ITS ---
PROCEDURE: XR CHEST 1V INDICATIONS: Flu like symptoms TECHNIQUE: One view of the chest was acquired. COMPARISON: [facility], CR, XR CHEST 1V, 09/25/2021, 2:24. [facility], CR, XR CHEST 1V, 09/15/2021, 15:39. [facility], CR, XR CHEST 1 VIEW, 07/07/2018, 20:50. [facility], CR, XR CHEST 1V, 09/26/2021, 21:26. FINDINGS: Surgical changes and devices: None. Lungs and pleura: Increased interstitial pulmonary opacities appearing slightly improved compared to 09/26/2021. There is interval development of a mild right effusion. Mediastinum: Mediastinal contours appear normal. Heart size is enlarged. Bones and chest wall: No suspicious bony lesions. Overlying soft tissues appear unremarkable. IMPRESSION: Persistent interstitial prominence suggestive of pulmonary opacities and left effusions suggestive of pneumonia. Dictated by: Nikki Gudino M.D. on 12/17/2021 at 12:55 Approved by: Nikki Gudino M.D. on 12/17/2021 at 12:56
[2021-12-17 12:24] LABS: Add Manual Diff / Slide Review NO; Basophils Absolute Auto 100 /uL (0-100); Basophils Percent Auto 0.7 % (0-2); Eosinophils Absolute Auto 100 /uL (0-450); Eosinophils Percent Auto 0.6 % (2-4); Hematocrit 42.1 % (36-46); Hemoglobin 13.8 g/dL (12.0-16.0); Lymphocytes Absolute Auto 400 /uL (1100-4500); Lymphocytes Percent Auto 4.2 % (25-40); Mean Corpuscular HGB Conc 32.7 % (30-36); Mean Corpuscular Hemoglobin 28.5 PG (26-34); Mean Corpuscular Volume 87.1 fL (80-100); Monocytes Absolute Auto 200 /uL (0-900); Monocytes Percent Auto 2.2 % (3-14); Neutrophils Absolute Auto 7800 /uL (1500-7000); Neutrophils Percent Auto 92.3 % (50-75); Platelet Count 202 X10^3/uL (150-400); Red Blood Cell Count 4.84 X10^6/uL (4.0-5.2); Red Cell Distribution Width 15.2 % (11.6-14.8); White Blood Cell Count 8.5 X10^3/uL (4.5-11.0)
[2021-12-17 12:31] LABS: INR 1.2 (0.9-1.3); Prothrombin Time 12.8 SECONDS (10.1-12.7)
[2021-12-17 12:42] LABS: Lactate (Lactic Acid) 2.3 mmol/L (0.7-2.1)
[2021-12-17 12:43] LABS: Alanine Aminotransferase 15 IU/L (<35); Albumin 4.1 g/dL (3.5-5.0); Albumin Globulin Ratio 1.4 (1.0-2.8); Alkaline Phosphatase 60 U/L (38-126); Aspartate Aminotransferase 30 IU/L (14-36); BUN Creatinine Ratio 15.8 (6-22); Bilirubin Total 1.4 mg/dL (0.2-1.3); Blood Urea Nitrogen 15 mg/dL (7-17); Calcium 9.8 mg/dL (8.4-10.2); Carbon Dioxide 33 mmol/L (22-32); Chloride 102 mmol/L (98-107); Creatine Kinase 37 U/L (30-135); Estimated Glomerular Filt Rate 59 mL/min (>60); Glucose 169 mg/dL (80-110); HEMOLYSIS < 15 (0-50); Potassium 3.2 mmol/L (3.4-5.1); Sodium 141 mmol/L (137-145); Total Protein 7.1 g/dL (6.3-8.2)
[2021-12-17 12:55] LABS: NT-proBNP (BNP-Adult 18+) 9950 pg/mL (<450); Troponin I 0.044 ng/mL (0.01-0.034)
--- NOTE | 2021-12-17 13:11 | ED_ITS ---
HPI - SOB/Dyspnea General Chief Complaint: Shortness of Breath/Dyspnea Stated Complaint: Trouble breathing, head/body aches Time Seen by Provider: 12/17/21 12:03 Source: patient Mode of arrival: Ambulatory Limitations: no limitations History of Present Illness HPI Narrative: 86-year-old female former smoker with history of COPD, NSTEMI and CHF presents with increased shortness of breath over the past few days. She has had body aches but denies any measured fever. She has some runny nose and nasal congestion and some increased cough. She has had no nausea or vomiting. She denies any change in her medications. Related Data Home Medications Medication Instructions Recorded Confirmed aspirin 81 mg tablet,delayed 81 mg PO QDAY #0 07/11/17 09/25/21 release lisinopril 40 mg tablet 40 mg PO DAILY 04/19/18 09/25/21 albuterol sulfate 90 mcg/actuation 2 puff INHALATION Q4H PRN 07/07/18 09/25/21 aerosol inhaler fluticasone 250 mcg-salmeterol 50 1 inh INHALATION BID 07/07/18 09/25/21 mcg/dose blistr powdr for inhalation (Advair Diskus) fluticasone propionate 50 1 spray INTRANASAL BID PRN 07/07/18 09/25/21 mcg/actuation nasal spray,suspension (Flonase Allergy Relief) levothyroxine 75 mcg tablet 75 mcg PO DAILY 07/07/18 09/25/21 multivitamin 1 tab PO DAILY 07/07/18 09/25/21 nitroglycerin 0.4 mg sublingual 0.4 mg SUBLINGUAL Q5-15M PRN 07/07/18 09/25/21 tablet (Nitrostat) omega 3-xvg-mmo-fish oil 1,000 mg 1,000 mg PO DAILY 07/07/18 09/25/21 (120 mg-180 mg) capsule (Fish Oil) vitamin E 400 unit capsule 400 unit PO DAILY 07/07/18 09/25/21 Previous Rx's Medication Instructions Recorded atorvastatin 20 mg tablet (Lipitor) 40 mg PO BEDTIME #180 tab 04/20/18 ipratropium 0.5 mg-albuterol 3 mg 3 ml INHALATION Q6-8H PRN #90 ml 11/04/18 (2.5 mg base)/3 mL nebulization soln furosemide 20 mg tablet (Lasix) 20 mg PO BID #6 tab 01/16/19 clopidogrel 75 mg tablet 75 mg PO DAILY 90 Days #90 tab 09/28/21 amoxicillin 875 mg-potassium 1 tab PO Q12H #20 tab 12/17/21 clavulanate 125 mg tablet potassium chloride 20 mEq 20 meq PO DAILY #7 tab 12/17/21 tablet,extended release prednisone 20 mg tablet 20 mg PO DAILY #5 tab 12/17/21 Allergies Allergy/AdvReac Type Severity Reaction Status Date / Time acarbose Allergy Intermediate Abdominal Verified 12/17/21 11:45 Pain amlodipine Allergy Intermediate Verified 12/17/21 11:45 chlorthalidone Allergy Intermediate Redness of Verified 12/17/21 11:45 Skin doxazosin [From Cardura] Allergy Intermediate Rash Verified 12/17/21 11:45 doxycycline Allergy Intermediate Rash Verified 12/17/21 11:45 gemfibrozil Allergy Intermediate Rash Verified 12/17/21 11:45 levofloxacin Allergy Intermediate Rash Verified 12/17/21 11:45 losartan Allergy Intermediate Rash Verified 12/17/21 11:45 metoprolol Allergy Intermediate Verified 12/17/21 11:45 montelukast [From Singulair] Allergy Intermediate Difficulty Verified 12/17/21 11:45 Breathing nifedipine Allergy Intermediate Chills Verified 12/17/21 11:45 Sulfa (Sulfonamide Allergy Intermediate rash Verified 12/17/21 11:45 Antibiotics) sulfamethoxazole Allergy Intermediate Rash Verified 12/17/21 11:45 [From Bactrim] trimethoprim [From Bactrim] Allergy Intermediate Rash Verified 12/17/21 11:45 budesonide [From Symbicort] Allergy Mild Anxiety Verified 12/17/21 11:45 carvedilol Allergy Mild Rash Verified 12/17/21 11:45 choline fenofibrate Allergy Mild Gastrointestinal Verified 12/17/21 11:45 [From Trilipix] Upset formoterol [From Symbicort] Allergy Mild Anxiety Verified 12/17/21 11:45 Review of Systems Review of Systems Narrative: GENERAL: Denies chills, fatigue, malaise, fever, sweats. HEENT: Denies sinus pain, ear pain, sore throat, difficulty swallowing, dizziness. RESPIRATORY: Denies dyspnea, cough, wheezing, hemoptysis, sputum. CARDIOVASCULAR: Denies chest pain, palpitations, orthopnea, edema, GASTROINTESTINAL: Denies nausea, vomiting, abdominal pain, diarrhea, constipation, melena. : Denies dysuria, frequency, incontinence, hematuria, urinary retention. MUSCULOSKELETAL: denies weakness, joint pain, or bony pain SKIN: Denies rash, skin lesions, or other NEUROLOGIC: Denies weakness, headache, numbness, change in speech, confusion, seizures, incoordination. PSYCHIATRIC: No concerning psychosocial issues. 12 point review of systems is negative except for those stated above Patient History Medical History (Updated 12/17/21 @ 15:14 by Leland Lal DO) Aneurysm of infrarenal abdominal aorta Bilateral carpal tunnel syndrome CAD (coronary artery disease) COPD (chronic obstructive pulmonary disease) with emphysema Elevated TSH HTN (hypertension) Hyperlipidemia Unstable angina Valvular heart disease Surgical History H/O hysterectomy with oophorectomy H/O three vessel coronary artery bypass Hx of heart artery stent Status post cholecystectomy Family History Father Lung cancer Mother COPD (chronic obstructive pulmonary disease) Social History household members: family and children Smoking Status: Former smoker alcohol intake: never Smoking Status: Former smoker alcohol intake frequency: 0-2 drinks per day Substance Use Type: does not use Exam Narrative Exam Narrative: GENERAL: [86] year old patient appears stated age. Well-developed patient, in mild distress. HEAD: Atraumatic. Normocephalic. EYES: Pupils equal round and reactive. Extraocular motions intact. No scleral icterus. No injection or drainage. ENT: Nose without bleeding, purulent drainage. Throat without erythema, tonsillar hypertrophy or exudate. Airway patent. NECK: Trachea midline. Non tender CARDIOVASCULAR: Regular rate and rhythm without murmurs, gallops, or rubs. RESPIRATORY:Mild tachypnea. Prolonged expiratory phase, faint crackles in bilateral bases GASTROINTESTINAL: Abdomen soft, non-tender, nondistended. EXTREMITIES: No edema or joint tenderness. BACK: Nontender without deformity or crepitance. No flank tenderness. NEURO: AOx3. SKIN: No rash or erythema of visible areas Initial Vital Signs Initial Vital Signs: Vital Signs Temperature 97.8 F 12/17/21 11:41 Pulse Rate 91 H 12/17/21 11:41 Respiratory Rate 29 H 12/17/21 11:41 Blood Pressure 187/85 H 12/17/21 11:41 Pulse Oximetry 97 12/17/21 11:41 Course Orders Ordered: ED Orders 12/17/21 11:46 XR chest 1V Stat EKG-12 Lead Stat Measure peak expiratory flow ONCE RT Consult Eval and Treat Now 12/17/21 12:10 Respiratory Panel (Film Array) Stat 12/17/21 12:15 Complete Blood Count AUTO DIFF Stat Comprehensive Metabolic Panel Stat Lactate (Lactic Acid) Stat NT-proBNP (BNP-Adult 18+) Stat Prothrombin Time INR Stat Troponin & CK Cardiac Panel Stat Discontinued Medications Albuterol/Ipratropium (Albuterol/Ipratropium 3 Ml Ampul) 3 ml INH NOW ONE Stop: 12/17/21 13:38 Last Admin: 12/17/21 14:16 Dose: 3 ml Documented by: HALEY Amoxicillin/Clavulanate Potassium (Amoxicillin/Clav 875/125 Mg) 1 tab PO NOW ONE Stop: 12/17/21 13:38 Last Admin: 12/17/21 14:14 Dose: 1 tab Documented by: KIRSTEN Furosemide (Furosemide 40 Mg/4 Ml Vial) 40 mg IV NOW ONE Stop: 12/17/21 13:38 Last Admin: 12/17/21 14:14 Dose: 40 mg Documented by: KIRSTEN Methylprednisolone (Methylprednisolone 125 Mg/2 Ml Vial) 125 mg IV NOW ONE Stop: 12/17/21 13:38 Last Admin: 12/17/21 14:14 Dose: 125 mg Documented by: KIRSTEN Reevaluation(s) Reevaluation #1: patient feeling much better after above stated therapies. She is making dilute urine with increased Lasix and able to ambulate to and from the bathroom, actually off of oxygen without evidence of significant respiratory distress and pulse ox of 88% Vital Signs Vital signs: Vital Signs - 8 hr 12/17/21 11:41 12/17/21 12:05 12/17/21 12:07 Temperature 97.8 F Pulse Rate 91 H 99 H 97 H Respiratory Rate 29 H Blood Pressure 187/85 H 184/88 H Pulse Oximetry 97 89 L 97 12/17/21 12:30 12/17/21 12:55 12/17/21 13:00 Temperature Pulse Rate 98 H 100 H 97 H Respiratory Rate 40 H Blood Pressure 133/99 H Pulse Oximetry 97 97 97 12/17/21 13:01 12/17/21 13:30 12/17/21 14:00 Temperature Pulse Rate 95 H 92 H 93 H Respiratory Rate 31 H 36 H 30 H Blood Pressure 161/102 H 188/84 H Pulse Oximetry 96 96 96 12/17/21 14:01 12/17/21 14:16 12/17/21 14:30 Temperature Pulse Rate 93 H 91 H 98 H Respiratory Rate 28 H 24 22 Blood Pressure 198/86 H Pulse Oximetry 96 95 97 MDM - SOB/Dyspnea Lab Data Result diagrams: 12/17/21 12:15 12/17/21 12:15 Labs: Lab Results 12/17/21 12/17/21 12/17/21 Range/Units 12:10 12:15 12:15 WBC 8.5 (4.5-11.0) X10^3/uL RBC 4.84 (4.0-5.2) X10^6/uL Hgb 13.8 (12.0-16.0) g/dL Hct 42.1 (36-46) % MCV 87.1 (80-100) fL MCH 28.5 (26-34) PG MCHC 32.7 (30-36) % RDW 15.2 H (11.6-14.8) % Plt Count 202 (150-400) X10^3/uL Neut % (Auto) 92.3 H (50-75) % Lymph % (Auto) 4.2 L (25-40) % Mchenry % (Auto) 2.2 L (3-14) % Eos % (Auto) 0.6 L (2-4) % Baso % (Auto) 0.7 (0-2) % Neut # (Auto) 7800 H (3384-9663) /uL Lymph # (Auto) 400 L (2524-3135) /uL Mchenry # (Auto) 200 (0-900) /uL Eos # (Auto) 100 (0-450) /uL Baso # (Auto) 100 (0-100) /uL PT 12.8 H (10.1-12.7) SECONDS INR 1.2 (0.9-1.3) Sodium (137-145) mmol/L Potassium (3.4-5.1) mmol/L Chloride (98-107) mmol/L Carbon Dioxide (22-32) mmol/L BUN (7-17) mg/dL Creatinine (0.52-1.04) mg/dL Estimated GFR (>60) mL/min BUN/Creatinine Ratio (6-22) Glucose (80-110) mg/dL Lactate (0.7-2.1) mmol/L Calcium (8.4-10.2) mg/dL Total Bilirubin (0.2-1.3) mg/dL AST (14-36) IU/L ALT (<35) IU/L Alkaline Phosphatase (38-126) U/L Total Creatine Kinase (30-135) U/L CK-MB (CK-2) CK-MB (CK-2) Rel Index Troponin I (0.01-0.034) ng/mL NT-Pro-B Natriuret Pep (<450) pg/mL Total Protein (6.3-8.2) g/dL Albumin (3.5-5.0) g/dL Globulin (1.7-4.1) g/dL Albumin/Globulin Ratio (1.0-2.8) Chlamy pneumoniae PCR Not detected (Not Detect) Adenovirus (PCR) Not detected (Not Detect) B. pertussis DNA (PCR) Not detected (Not Detecte) B.parapertussis DNA PCR Not detected (Not Detecte) Coronavirus OC43 (PCR) Not detected (Not Detect) Coronavirus HKU1 (PCR) Not detected (Not Detect) Coronavirus 229E (PCR) Not detected (Not Detect) SARS-CoV-2 (PCR) Not detected (Not Detecte) Coronavirus NL63 (PCR) Not detected (Not Detect) Human Metapneumovir PCR Not detected (Not Detect) Influenza Type A (PCR) Not detected (Not Detect) Influenza Type B (PCR) Not detected (Not Detect) M. pneumoniae (PCR) Not detected (Not Detect) Parainfluenza 1 (PCR) Not detected (Not Detect) Parainfluenza 2 (PCR) Not detected (Not Detect) Parainfluenza 3 (PCR) Not detected (Not Detect) Parainfluenza 4 (PCR) Not detected (Not Detect) RSV (PCR) Not detected (Not Detect) Entero/Rhino (PCR) Not detected (Not Detect) 12/17/21 12/17/21 12/17/21 Range/Units 12:15 12:15 14:32 WBC (4.5-11.0) X10^3/uL RBC (4.0-5.2) X10^6/uL Hgb (12.0-16.0) g/dL Hct (36-46) % MCV (80-100) fL MCH (26-34) PG MCHC (30-36) % RDW (11.6-14.8) % Plt Count (150-400) X10^3/uL Neut % (Auto) (50-75) % Lymph % (Auto) (25-40) % Mchenry % (Auto) (3-14) % Eos % (Auto) (2-4) % Baso % (Auto) (0-2) % Neut # (Auto) (2773-8166) /uL Lymph # (Auto) (1326-6914) /uL Mchenry # (Auto) (0-900) /uL Eos # (Auto) (0-450) /uL Baso # (Auto) (0-100) /uL PT (10.1-12.7) SECONDS INR (0.9-1.3) Sodium 141 (137-145) mmol/L Potassium 3.2 L (3.4-5.1) mmol/L Chloride 102 (98-107) mmol/L Carbon Dioxide 33 H (22-32) mmol/L BUN 15 (7-17) mg/dL Creatinine 0.95 (0.52-1.04) mg/dL Estimated GFR 59 L (>60) mL/min BUN/Creatinine Ratio 15.8 (6-22) Glucose 169 H (80-110) mg/dL Lactate 2.3 H 2.5 H (0.7-2.1) mmol/L Calcium 9.8 (8.4-10.2) mg/dL Total Bilirubin 1.4 H (0.2-1.3) mg/dL AST 30 (14-36) IU/L ALT 15 (<35) IU/L Alkaline Phosphatase 60 (38-126) U/L Total Creatine Kinase 37 (30-135) U/L CK-MB (CK-2) TNP CK-MB (CK-2) Rel Index TNP Troponin I 0.044 H (0.01-0.034) ng/mL NT-Pro-B Natriuret Pep 9950 H (<450) pg/mL Total Protein 7.1 (6.3-8.2) g/dL Albumin 4.1 (3.5-5.0) g/dL Globulin 3.0 (1.7-4.1) g/dL Albumin/Globulin Ratio 1.4 (1.0-2.8) Chlamy pneumoniae PCR (Not Detect) Adenovirus (PCR) (Not Detect) B. pertussis DNA (PCR) (Not Detecte) B.parapertussis DNA PCR (Not Detecte) Coronavirus OC43 (PCR) (Not Detect) Coronavirus HKU1 (PCR) (Not Detect) Coronavirus 229E (PCR) (Not Detect) SARS-CoV-2 (PCR) (Not Detecte) Coronavirus NL63 (PCR) (Not Detect) Human Metapneumovir PCR (Not Detect) Influenza Type A (PCR) (Not Detect) Influenza Type B (PCR) (Not Detect) M. pneumoniae (PCR) (Not Detect) Parainfluenza 1 (PCR) (Not Detect) Parainfluenza 2 (PCR) (Not Detect) Parainfluenza 3 (PCR) (Not Detect) Parainfluenza 4 (PCR) (Not Detect) RSV (PCR) (Not Detect) Entero/Rhino (PCR) (Not Detect) Imaging Data Chest x-ray: Radiologist's Impression: [address] [address] XRay Report Signed Patient: Lindsay Aguilar MR#: [id number] : 1935 Acct:[id number] Age/Sex: 86 / F Date of Service: 12/17/21 Loc: ED Accession Number: [id number] ?? Procedure: XR chest 1V Ordering Provider: Leland Lal D.O. PROCEDURE:? XR CHEST 1V ? INDICATIONS:? Flu like symptoms ? TECHNIQUE:? One view of the chest was acquired.? ? COMPARISON:? [facility], CR, XR CHEST 1V, 09/25/2021, 2:24.? [facility], CR, XR CHEST 1V, 09/15/2021, 15:39.? [facility], CR, XR CHEST 1 VIEW, 07/07/2018, 20:50.? [facility], CR, XR CHEST 1V, 09/26/2021, 21:26. ? FINDINGS:? ? Surgical changes and devices:? None.? ? Lungs and pleura:? Increased interstitial pulmonary opacities appearing slightly improved compared to 09/26/2021.? There is interval development of a mild right effusion. ? Mediastinum:? Mediastinal contours appear normal.? Heart size is enlarged. ? Bones and chest wall:? No suspicious bony lesions.? Overlying soft tissues appear unremarkable.? ? IMPRESSION:? Persistent interstitial prominence suggestive of pulmonary opacities and left effusions suggestive of pneumonia. ? ? Dictated by: Nikki Gudino M.D. on 12/17/2021 at 12:55 ? ? Approved by: Nikki Gudino M.D. on 12/17/2021 at 12:56 ? Discharge Plan Departure Patient Disposition: Home Clinical Impression: Acute exacerbation of chronic obstructive pulmonary disease, Pneumonia, Acute CHF Instructions: DI for Heart Failure, DI for Chronic Obstructive Pulmonary Disease, DI for Pneumonia -- Adult Activity Restrictions/Additional Instructions: *You have been diagnosed with [shortness of breath due to a mild exacerbation of your COPD, CHF and mild pneumonia. You responded well to the medications given and there is no indication that you will need to be hospitalized. *What to do: *As we discussed I have sent prescriptions to your pharmacy. Also, as we discussed please take an extra Lasix 20mg (Furosemide) daily for the next 3 days starting tomorrow. Othersiwe please please continue to take your regular me dications as directed. [x ] New medication prescriptions sent to your pharmacy: [ [facility]] [ ] New medication written as a paper prescription [ ] No new medications given *Please follow up with your primary care provider in 2-3 days, call for an appointment. Let them know you were seen in the Emergency Department and that we ask that you be seen in follow up. We will electronically transmit a record of today's note if your PCP is in our system *If you do not have a primary care provider please contact the [facility] Resource line at [phone]. They will ask some questions about your medical history and help get you set up with a doctor in the community. *Return to Emergency Department if you should have any new, worsening or concerning symptoms, such as [fever greater than 101 F, shaking chills, worsening pain, persistent vomiting or other bothersome symptoms] Prescriptions: New prednisone 20 mg tablet 20 mg PO DAILY Qty: 5 0RF Rx Instructions: administer with food or milk amoxicillin-pot clavulanate 875-125 mg tablet 1 tab PO Q12H Qty: 20 0RF potassium chloride 20 mEq tablet extended release 20 meq PO DAILY Qty: 7 0RF No Action aspirin 81 MG tablet,delayed release (DR/EC) 81 mg PO QDAY Qty: 0 0RF lisinopril 40 mg Tablet 40 mg PO DAILY 0RF atorvastatin [Lipitor] 20 mg Tablet 40 mg PO BEDTIME Qty: 180 0RF Label Comments: patient states she forgets to take levothyroxine 75 mcg tablet 75 mcg PO DAILY 0RF albuterol sulfate 90 mcg/actuation HFA aerosol inhaler 2 puff Inhalation Q4H PRN (Reason: Shortness Of Breath) 0RF fluticasone propion-salmeterol [Advair Diskus] 250-50 mcg/dose Blister With Device 1 inh INHALATION BID 0RF Label Comments: patient states on Advair. no record in RX processes. Also states unsure of when and how often she is supposed to use various inhalers. omega 1-eif-kvx-fish oil [Fish Oil] 1,000 mg (120 mg-180 mg) Capsule 1,000 mg PO DAILY 0RF nitroglycerin [Nitrostat] 0.4 mg Tablet, Sublingual 0.4 mg SUBLINGUAL Q5-15M PRN (Reason: Chest Pain) 0RF fluticasone propionate [Flonase Allergy Relief] 50 mcg/actuation Taylor,Suspension 1 spray Intranasal BID PRN (Reason: Allergy Symptoms) 0RF vitamin E 400 unit Capsule 400 unit PO DAILY 0RF multivitamin Tablet,Chewable 1 tab PO DAILY 0RF ipratropium-albuterol 0.5 mg-3 mg(2.5 mg base)/3 mL solution for nebulization 3 ml INHALATION Q6-8H PRN (Reason: shortness of breath or wheezing) Qty: 90 0RF furosemide [Lasix] 20 mg tablet 20 mg PO BID Qty: 6 0RF clopidogrel 75 mg Tablet 75 mg PO DAILY 90 Days Qty: 90 4RF Referrals: Allie Fleming MD [Primary Care Provider] -
[2021-12-17 13:28] LABS: Adenovirus Not Detected (Not Detect); B. parapertussis Not Detected (Not Detecte); Bordetella pertussis Not Detected (Not Detecte); Chlamydophila pneumoniae Not Detected (Not Detect); Coronavirus 229E Not Detected (Not Detect); Coronavirus HKU1 Not Detected (Not Detect); Coronavirus NL 63 Not Detected (Not Detect); Coronavirus OC43 Not Detected (Not Detect); Human Metapneumovirus Not Detected (Not Detect); Human Rhinovirus/Enterovirus Not Detected (Not Detect); Influenza A Not Detected (Not Detect); Influenza B Not Detected (Not Detect); Mycoplasma pneumoniae Not Detected (Not Detect); Parainfluenza Virus 1 Not Detected (Not Detect); Parainfluenza Virus 2 Not Detected (Not Detect); Parainfluenza Virus 3 Not Detected (Not Detect); Parainfluenza Virus 4 Not Detected (Not Detect); Respiratory Syncytial Virus Not Detected (Not Detect); SARS- CoV-2 Not Detected (Not Detecte)
[2021-12-17] MEDS: FUROSEMIDE 40 MG/4 ML VIAL IV (14:14)
[2021-12-17] MEDS: methylPREDNISolone 125 MG/2 ML VIAL IV (14:14)
[2021-12-17] MEDS: AMOXICILLIN/CLAV 875/125 MG 1 TAB PO (14:14)
[2021-12-17] MEDS: ALBUTEROL/IPRATROPIUM 3 ML AMPUL INH (14:16)
[2021-12-17 14:20] LABS: Reflexed Lactate in 2 Hours Y
[2021-12-17 14:52] LABS: Lactate 2HR (Lactic Acid Rflx) 2.5 mmol/L (0.7-2.1)
== END 2021-12-17 15:39 | disposition home or self-care (01) ==
PROVIDERS: Emergency Provider Emergency Medicine; Family Provider Internal Medicine; PCP Internal Medicine
DX: J44.1 Chronic obstructive pulmonary disease with (acute) exacerbation (principal); J44.0 Chronic obstructive pulmonary disease with (acute) lower respiratory infection; J18.9 Pneumonia, unspecified organism; I50.9 Heart failure, unspecified; Z87.891 Personal history of nicotine dependence; Z88.1 Allergy status to other antibiotic agents; Z88.2 Allergy status to sulfonamides; Z88.8 Allergy status to other drugs, medicaments and biological substances; Z20.822 Contact with and (suspected) exposure to COVID-19; I11.0 Hypertensive heart disease with heart failure
CPT/HCPCS: 36415; 71045; 80053; 82550; 83605; 83880; 84484; 85025; 85610; 87633; 93005; 94150; 94640; 96374; 96375; 99284; 99285; J1940; J2930

== ENCOUNTER 2021-12-21 21:17 | Inpatient (IN) | payer OTHER, SELFPAY ==
[2021-09-25 13:04] VITALS: BMI 23.0
[2021-12-21] VITALS (7 sets, daily range): BP systolic 175–216; BP diastolic 79–95; PULSE 75–102; RESP 15–41; O2SAT 94–97; BMI 25.3
--- NOTE | 2021-12-21 21:14 | ED_ITS ---
HPI - SOB/Dyspnea General Chief Complaint: Shortness of Breath/Dyspnea Stated Complaint: Increased SOB Time Seen by Provider: 12/21/21 21:20 History of Present Illness HPI Narrative: 86-year-old female with history of COPD, NSTEMI, CHF presents with increased shortness of breath over the past few days. She is normally on 2 L at home but has had increasing shortness of breath, fatigue and chills. She was seen evaluated on Friday for exacerbation of COPD, mild pneumonia and CHF and has been on antibiotics but clearly is worsening at home. She has had nausea but denies any vomiting. She admits to some lower abdominal discomfort that seems to be we worse with motion and improves with rest. She has had increased bowel movements with abdominal cramping and foul smelling diarrhea. She denies any dysuria, frequency or urgency. On arrival EMS found her work of breathing to be increased with pulse ox mid 80s and she was increased to 4L during transport Related Data Home Medications Medication Instructions Recorded Confirmed aspirin 81 mg tablet,delayed 81 mg PO QDAY #0 07/11/17 09/25/21 release lisinopril 40 mg tablet 40 mg PO DAILY 04/19/18 09/25/21 albuterol sulfate 90 mcg/actuation 2 puff INHALATION Q4H PRN 07/07/18 09/25/21 aerosol inhaler fluticasone 250 mcg-salmeterol 50 1 inh INHALATION BID 07/07/18 09/25/21 mcg/dose blistr powdr for inhalation (Advair Diskus) fluticasone propionate 50 1 spray INTRANASAL BID PRN 07/07/18 09/25/21 mcg/actuation nasal spray,suspension (Flonase Allergy Relief) levothyroxine 75 mcg tablet 75 mcg PO DAILY 07/07/18 09/25/21 multivitamin 1 tab PO DAILY 07/07/18 09/25/21 nitroglycerin 0.4 mg sublingual 0.4 mg SUBLINGUAL Q5-15M PRN 07/07/18 09/25/21 tablet (Nitrostat) omega [id number]-fish oil 1,000 mg 1,000 mg PO DAILY 07/07/18 09/25/21 (120 mg-180 mg) capsule (Fish Oil) vitamin E 400 unit capsule 400 unit PO DAILY 07/07/18 09/25/21 Previous Rx's Medication Instructions Recorded atorvastatin 20 mg tablet (Lipitor) 40 mg PO BEDTIME #180 tab 04/20/18 ipratropium 0.5 mg-albuterol 3 mg 3 ml INHALATION Q6-8H PRN #90 ml 11/04/18 (2.5 mg base)/3 mL nebulization soln furosemide 20 mg tablet (Lasix) 20 mg PO BID #6 tab 01/16/19 clopidogrel 75 mg tablet 75 mg PO DAILY 90 Days #90 tab 09/28/21 amoxicillin 875 mg-potassium 1 tab PO Q12H #20 tab 12/17/21 clavulanate 125 mg tablet potassium chloride 20 mEq 20 meq PO DAILY #7 tab 12/17/21 tablet,extended release prednisone 20 mg tablet 20 mg PO DAILY #5 tab 12/17/21 Allergies Allergy/AdvReac Type Severity Reaction Status Date / Time acarbose Allergy Intermediate Abdominal Verified 12/17/21 11:45 Pain amlodipine Allergy Intermediate Verified 12/17/21 11:45 chlorthalidone Allergy Intermediate Redness of Verified 12/17/21 11:45 Skin doxazosin [From Cardura] Allergy Intermediate Rash Verified 12/17/21 11:45 doxycycline Allergy Intermediate Rash Verified 12/17/21 11:45 gemfibrozil Allergy Intermediate Rash Verified 12/17/21 11:45 levofloxacin Allergy Intermediate Rash Verified 12/17/21 11:45 losartan Allergy Intermediate Rash Verified 12/17/21 11:45 metoprolol Allergy Intermediate Verified 12/17/21 11:45 montelukast [From Singulair] Allergy Intermediate Difficulty Verified 12/17/21 11:45 Breathing nifedipine Allergy Intermediate Chills Verified 12/17/21 11:45 Sulfa (Sulfonamide Allergy Intermediate rash Verified 12/17/21 11:45 Antibiotics) sulfamethoxazole Allergy Intermediate Rash Verified 12/17/21 11:45 [From Bactrim] trimethoprim [From Bactrim] Allergy Intermediate Rash Verified 12/17/21 11:45 budesonide [From Symbicort] Allergy Mild Anxiety Verified 12/17/21 11:45 carvedilol Allergy Mild Rash Verified 12/17/21 11:45 choline fenofibrate Allergy Mild Gastrointestinal Verified 12/17/21 11:45 [From Trilipix] Upset formoterol [From Symbicort] Allergy Mild Anxiety Verified 12/17/21 11:45 Review of Systems Review of Systems Narrative: GENERAL: See HPI HEENT: Denies sinus pain, ear pain, sore throat, difficulty swallowing, dizziness. RESPIRATORY: See HPI CARDIOVASCULAR: Denies chest pain, palpitations, orthopnea, edema, GASTROINTESTINAL: See HPI : Denies dysuria, frequency, incontinence, hematuria, urinary retention. MUSCULOSKELETAL: denies weakness, joint pain, or bony pain SKIN: Denies rash, skin lesions, or other NEUROLOGIC: Denies weakness, headache, numbness, change in speech, confusion, seizures, incoordination. PSYCHIATRIC: No concerning psychosocial issues. 12 point review of systems is negative except for those stated above Patient History Medical History (Updated 12/22/21 @ 01:49 by Leland Lal DO) Aneurysm of infrarenal abdominal aorta Bilateral carpal tunnel syndrome CAD (coronary artery disease) COPD (chronic obstructive pulmonary disease) with emphysema Elevated TSH HTN (hypertension) Hyperlipidemia Unstable angina Valvular heart disease Surgical History H/O hysterectomy with oophorectomy H/O three vessel coronary artery bypass Hx of heart artery stent Status post cholecystectomy Family History Father Lung cancer Mother COPD (chronic obstructive pulmonary disease) Social History household members: family and children Smoking Status: Former smoker alcohol intake: never Exam Narrative Exam Narrative: GENERAL: [86] year old patient appears stated age. Well-developed patient, in moderate distress, clearly anxious, tachypneic with increased work of breathing HEAD: Atraumatic. Normocephalic. EYES: Pupils equal round and reactive. Extraocular motions intact. No scleral icterus. No injection or drainage. ENT: Nose without bleeding, purulent drainage. Throat without erythema, tonsillar hypertrophy or exudate. Airway patent. NECK: Trachea midline. Non tender CARDIOVASCULAR: Regular rate and rhythm without murmurs, gallops, or rubs. RESPIRATORY: Increased work of breathing with use of accessory muscles, decreased breath sounds throughout with prolonged expiratory phase as well as wheeze, rales and rhonchi is noted throughout. GASTROINTESTINAL: Abdomen soft, slight distension, bowel sounds present nondistended. EXTREMITIES: No edema or joint tenderness. BACK: Nontender without deformity or crepitance. No flank tenderness. NEURO: AOx3. SKIN: No rash or erythema of visible areas Initial Vital Signs Initial Vital Signs: Vital Signs Pulse Rate 76 12/21/21 21:17 Respiratory Rate 36 H 12/21/21 21:17 Blood Pressure 175/79 H 12/21/21 21:17 Pulse Oximetry 97 12/21/21 21:17 Course Orders Ordered: ED Orders 12/21/21 21:22 XR chest 1V Stat ABG [Arterial Blood Gas] Stat Sputum Culture Stat EKG-12 Lead Stat 12/21/21 21:30 Complete Blood Count AUTO DIFF Stat Comprehensive Metabolic Panel Stat D Dimer Stat Lactate (Lactic Acid) Stat Lipase Stat NT-proBNP (BNP-Adult 18+) Stat Procalcitonin Stat Prothrombin Time INR Stat Troponin & CK Cardiac Panel Stat 12/21/21 21:40 COVID19 -Nasal RAPID/Pre-Proc Stat 12/21/21 21:44 Blood Culture Stat 12/21/21 22:21 CT angio chest PE protocol Stat 12/21/21 22:24 CT abdomen pelvis w con Stat 12/21/21 23:53 ABG [Arterial Blood Gas] Stat 12/22/21 00:17 C Diff [Clostridium Difficile Tox PCR] Stat Albuterol (Albuterol 2.5 Mg/3 Ml Neb (Adult)) 2.5 mg INH [id number] ROLANDA Albuterol (Albuterol 2.5 Mg/3 Ml Neb (Adult)) 2.5 mg INH Q2H PRN PRN Reason: Shortness Of Breath Albuterol/Ipratropium (Albuterol/Ipratropium 3 Ml Ampul) 3 ml INH Q6H PRN PRN Reason: shortness of breath or wheezing Aspirin (Aspirin Ec 81 Mg Tablet) 81 mg PO DAILY ROLANDA Atorvastatin Calcium (Atorvastatin 20 Mg Tablet) 40 mg PO BEDTIME ROLANDA Budesonide (Budesonide 0.5 Mg/2 Ml Neb) 0.5 mg INH RTBID ROLANDA Clopidogrel Bisulfate (Clopidogrel 75 Mg Tablet) 75 mg PO DAILY [facility] Sodium Chloride (Normal Saline 0.9%) 1,000 mls @ 100 mls/hr IV CONT ROLANDA Last Admin: 12/22/21 02:47 Dose: 100 mls/hr Documented by: MARY Levothyroxine Sodium (Levothyroxine 75 Mcg Tablet) 75 mcg PO 0600 [facility] Lisinopril (Lisinopril 20 Mg Tablet) 40 mg PO DAILY [facility] Methylprednisolone (Methylprednisolone 125 Mg/2 Ml Vial) 60 mg IV Q12H [facility] Last Admin: 12/22/21 02:47 Dose: 60 mg Documented by: MARY Naloxone HCl (Naloxone 0.4 Mg/Ml Vial) 0.2 mg IV Q2MIN PRN PRN Reason: Opiate Reversal Nitroglycerin (Nitroglycerin 0.4 Mg Sl Tab) 0.4 mg SL Q5MIN PRN PRN Reason: CHEST PAIN Discontinued Medications Albuterol (Albuterol 2.5 Mg/3 Ml Neb (Adult)) 2.5 mg INH Q4H PRN PRN Reason: Shortness Of Breath Furosemide (Furosemide 40 Mg/4 Ml Vial) 40 mg IV NOW ONE Stop: 12/22/21 00:00 Last Admin: 12/22/21 00:25 Dose: 40 mg Documented by: NADYA Sodium Chloride (Normal Saline 0.9%) 1,000 mls @ 150 mls/hr IV CONT [facility] Last Infusion: 12/22/21 01:35 Dose: 0 mls/hr Documented by: Admin: 12/21/21 21:31 Dose: 150 mls/hr Documented by: NADYA Ceftriaxone Sodium 1,000 mg/ (Sodium Chloride) 100 mls @ 200 mls/hr IV NOW ONE Stop: 12/22/21 00:00 Last Infusion: 12/22/21 01:16 Dose: 0 mls/hr Documented by: Admin: 12/22/21 00:26 Dose: 200 mls/hr Documented by: NADYA Reevaluation(s) Reevaluation #1: Patient has minimal if any improvement after bronchodilators and steroids. Vital Signs Vital signs: Vital Signs - 8 hr 12/21/21 21:17 12/21/21 21:41 12/21/21 22:00 Pulse Rate 76 81 76 Respiratory Rate 36 H 41 H 15 Blood Pressure 175/79 H Pulse Oximetry 97 95 96 12/21/21 22:30 12/21/21 23:00 12/21/21 23:03 Pulse Rate 76 88 102 H Respiratory Rate 21 36 H 30 H Blood Pressure 216/95 H Pulse Oximetry 96 94 97 12/21/21 23:30 12/22/21 00:00 12/22/21 00:01 Pulse Rate 75 79 80 Respiratory Rate 22 23 26 H Blood Pressure 205/77 H Pulse Oximetry 96 98 98 MDM - SOB/Dyspnea Lab Data Result diagrams: 12/21/21 21:30 12/21/21 21:30 Labs: Lab Results 12/21/21 12/21/21 12/21/21 Range/Units 21:30 21:30 21:30 WBC 9.0 (4.5-11.0) X10^3/uL RBC 4.82 (4.0-5.2) X10^6/uL Hgb 13.8 (12.0-16.0) g/dL Hct 41.9 (36-46) % MCV 86.9 (80-100) fL MCH 28.6 (26-34) PG MCHC 32.9 (30-36) % RDW 15.4 H (11.6-14.8) % Plt Count 240 (150-400) X10^3/uL Neut % (Auto) 78.1 H (50-75) % Lymph % (Auto) 12.2 L (25-40) % [place] % (Auto) 5.9 (3-14) % Eos % (Auto) 3.0 (2-4) % Baso % (Auto) 0.8 (0-2) % Neut # (Auto) 7000 (3728-7860) /uL Lymph # (Auto) 1100 (1981-9010) /uL [place] # (Auto) 500 (0-900) /uL Eos # (Auto) 300 (0-450) /uL Baso # (Auto) 100 (0-100) /uL PT 12.4 (10.1-12.7) SECONDS INR 1.1 (0.9-1.3) D-Dimer 927 H (<230) ng/mL Sodium 137 (137-145) mmol/L Potassium 3.7 (3.4-5.1) mmol/L Chloride 99 (98-107) mmol/L Carbon Dioxide 32 (22-32) mmol/L BUN 21 H (7-17) mg/dL Creatinine 0.76 (0.52-1.04) mg/dL Estimated GFR > 60 (>60) mL/min BUN/Creatinine Ratio 27.6 H (6-22) Glucose 138 H (80-110) mg/dL Lactate (0.7-2.1) mmol/L Calcium 9.8 (8.4-10.2) mg/dL Total Bilirubin 1.1 (0.2-1.3) mg/dL AST 28 (14-36) IU/L ALT 19 (<35) IU/L Alkaline Phosphatase 67 (38-126) U/L Total Creatine Kinase 21 L (30-135) U/L CK-MB (CK-2) TNP CK-MB (CK-2) Rel Index TNP Troponin I 0.051 H (0.01-0.034) ng/mL NT-Pro-B Natriuret Pep 7930 H (<450) pg/mL Total Protein 7.1 (6.3-8.2) g/dL Albumin 4.0 (3.5-5.0) g/dL Globulin 3.1 (1.7-4.1) g/dL Albumin/Globulin Ratio 1.3 (1.0-2.8) Lipase 49 (23-300) U/L Procalcitonin 0.08 (<0.5) ng/mL Urine Color Urine Appearance Urine pH (4.5-8.0) Ur Specific [place] (1.000-1.035) Urine Protein (Negative) Urine Glucose (UA) (Negative) g/dL Urine Ketones (NEGATIVE) Urine Occult Blood (Negative) Urine Nitrate (Negative) Urine Bilirubin (NEGATIVE) Urine Urobilinogen (0.2) E.U./dL Ur Leukocyte Esterase (NEGATIVE) Urine RBC (0-5/HPF) Urine WBC (0-5/HPF) Ur Squamous Epith Cells (0-5/HPF) Urine Bacteria (None) Ur Culture Indicated? C. difficile Tox (PCR) (Negative) SARS-CoV-2 (PCR) (Negative) 12/21/21 12/21/21 12/22/21 Range/Units 21:30 21:40 00:17 WBC (4.5-11.0) X10^3/uL RBC (4.0-5.2) X10^6/uL Hgb (12.0-16.0) g/dL Hct (36-46) % MCV (80-100) fL MCH (26-34) PG MCHC (30-36) % RDW (11.6-14.8) % Plt Count (150-400) X10^3/uL Neut % (Auto) (50-75) % Lymph % (Auto) (25-40) % [place] % (Auto) (3-14) % Eos % (Auto) (2-4) % Baso % (Auto) (0-2) % Neut # (Auto) (3863-3606) /uL Lymph # (Auto) (2330-8679) /uL [place] # (Auto) (0-900) /uL Eos # (Auto) (0-450) /uL Baso # (Auto) (0-100) /uL PT (10.1-12.7) SECONDS INR (0.9-1.3) D-Dimer (<230) ng/mL Sodium (137-145) mmol/L Potassium (3.4-5.1) mmol/L Chloride (98-107) mmol/L Carbon Dioxide (22-32) mmol/L BUN (7-17) mg/dL Creatinine (0.52-1.04) mg/dL Estimated GFR (>60) mL/min BUN/Creatinine Ratio (6-22) Glucose (80-110) mg/dL Lactate 1.6 (0.7-2.1) mmol/L Calcium (8.4-10.2) mg/dL Total Bilirubin (0.2-1.3) mg/dL AST (14-36) IU/L ALT (<35) IU/L Alkaline Phosphatase (38-126) U/L Total Creatine Kinase (30-135) U/L CK-MB (CK-2) CK-MB (CK-2) Rel Index Troponin I (0.01-0.034) ng/mL NT-Pro-B Natriuret Pep (<450) pg/mL Total Protein (6.3-8.2) g/dL Albumin (3.5-5.0) g/dL Globulin (1.7-4.1) g/dL Albumin/Globulin Ratio (1.0-2.8) Lipase (23-300) U/L Procalcitonin (<0.5) ng/mL Urine Color Urine Appearance Urine pH (4.5-8.0) Ur Specific [place] (1.000-1.035) Urine Protein (Negative) Urine Glucose (UA) (Negative) g/dL Urine Ketones (NEGATIVE) Urine Occult Blood (Negative) Urine Nitrate (Negative) Urine Bilirubin (NEGATIVE) Urine Urobilinogen (0.2) E.U./dL Ur Leukocyte Esterase (NEGATIVE) Urine RBC (0-5/HPF) Urine WBC (0-5/HPF) Ur Squamous Epith Cells (0-5/HPF) Urine Bacteria (None) Ur Culture Indicated? C. difficile Tox (PCR) Negative for c. diff (Negative) SARS-CoV-2 (PCR) Negative (Negative) 12/22/21 Range/Units 00:18 WBC (4.5-11.0) X10^3/uL RBC (4.0-5.2) X10^6/uL Hgb (12.0-16.0) g/dL Hct (36-46) % MCV (80-100) fL MCH (26-34) PG MCHC (30-36) % RDW (11.6-14.8) % Plt Count (150-400) X10^3/uL Neut % (Auto) (50-75) % Lymph % (Auto) (25-40) % [place] % (Auto) (3-14) % Eos % (Auto) (2-4) % Baso % (Auto) (0-2) % Neut # (Auto) (5349-9163) /uL Lymph # (Auto) (9994-8010) /uL [place] # (Auto) (0-900) /uL Eos # (Auto) (0-450) /uL Baso # (Auto) (0-100) /uL PT (10.1-12.7) SECONDS INR (0.9-1.3) D-Dimer (<230) ng/mL Sodium (137-145) mmol/L Potassium (3.4-5.1) mmol/L Chloride (98-107) mmol/L Carbon Dioxide (22-32) mmol/L BUN (7-17) mg/dL Creatinine (0.52-1.04) mg/dL Estimated GFR (>60) mL/min BUN/Creatinine Ratio (6-22) Glucose (80-110) mg/dL Lactate (0.7-2.1) mmol/L Calcium (8.4-10.2) mg/dL Total Bilirubin (0.2-1.3) mg/dL AST (14-36) IU/L ALT (<35) IU/L Alkaline Phosphatase (38-126) U/L Total Creatine Kinase (30-135) U/L CK-MB (CK-2) CK-MB (CK-2) Rel Index Troponin I (0.01-0.034) ng/mL NT-Pro-B Natriuret Pep (<450) pg/mL Total Protein (6.3-8.2) g/dL Albumin (3.5-5.0) g/dL Globulin (1.7-4.1) g/dL Albumin/Globulin Ratio (1.0-2.8) Lipase (23-300) U/L Procalcitonin (<0.5) ng/mL Urine Color Yellow Urine Appearance Clear Urine pH 7.0 (4.5-8.0) Ur Specific [place] <=1.005 (1.000-1.035) Urine Protein Negative (Negative) Urine Glucose (UA) Negative (Negative) g/dL Urine Ketones Negative (NEGATIVE) Urine Occult Blood Negative (Negative) Urine Nitrate Negative (Negative) Urine Bilirubin Negative (NEGATIVE) Urine Urobilinogen 0.2 (0.2) E.U./dL Ur Leukocyte Esterase Negative (NEGATIVE) Urine RBC 0-1/hpf D (0-5/HPF) Urine WBC None seen (0-5/HPF) Ur Squamous Epith Cells None seen (0-5/HPF) Urine Bacteria None seen (None) Ur Culture Indicated? Cult not indicated C. difficile Tox (PCR) (Negative) SARS-CoV-2 (PCR) (Negative) Imaging Data CT scan - chest: Radiologist's Impression: [place] [address] CT Scan Report Signed Patient: Lindsay Aguilar MR#: [id number] : 1935 Acct:[id number] Age/Sex: 86 / F Date of Service: 12/21/21 Loc: ED Accession Number: [id number] ?? Procedure: CT angio chest PE protocol Ordering Provider: Leland Lal D.O. PROCEDURE:? CT ANGIO CHEST PE PROTOCOL ? INDICATIONS:? SOB, tachycardia, dry cough, hypoxemia, critical dimer ? TECHNIQUE:? After the administration of intravenous contrast, 2 mm thick sections acquired from the pulmonary apices to the posterior costophrenic angles.? 3-dimensional maximum intensity projection (MIP) coronal and sagittal reformats were then acquired through the thorax.? For radiation dose reduction, the following was used:? automated exposure control, adjustment of mA and/or kV according to patient size.? ? COMPARISON:? [facility], CT, CT ANGIO CHEST PE PROTOCOL, 09/25/2021, 6:20. ? FINDINGS:? Image quality:? Excellent.? ? Pulmonary arteries:? Pulmonary arteries are normal in size, and demonstrate no intraluminal filling defects to suggest central pulmonary embolism.? ? Lungs and pleura:? Moderate bilateral emphysematous change.? Coarse interstitial thickening diffusely, and patchy alveolar opacities at both lung bases.? Small right and trace left pleural effusions.? Mild fluid in both fissures.? Peripheral and central airways are patent and normal caliber. ? Mediastinum:? The heart is diffusely enlarged.? There is a probable coronary stent, coronary bypass grafting and median sternotomy change noted.? No pericardial effusion.? Epicardial pacing wires are noted.? The thoracic aorta is normal caliber.? Mild confluent mediastinal and hilar adenopathy, nonspecific.? The esophagus demonstrates a tiny hiatal hernia. ? Bones and chest wall:? No suspicious bony lesions.? Ribs and thoracic spine appear intact throughout.? Thyroid gland is partially imaged.? No axillary or supraclavicular adenopathy.? ? Abdomen:? Upper abdomen demonstrates hepatic reflux of IV contrast.? There is heavy atherosclerotic calcification and changes of cholecystectomy.? Upper abdomen is otherwise unremarkable. ? IMPRESSION:? ? 1. No pulmonary embolus. ? 2. Moderate to significant cardiomegaly.? Along with mild minimal bilateral pleural effusions and interstitial thickening, this may indicate CHF. ? 3. Lung findings superimposed on moderate emphysema. ? 4. Underlying acute pneumonia cannot be entirely excluded. ? 5. Postsurgical changes in the heart.? ? ? Dictated by: Korina Calvo M.D. on 12/21/2021 at 23:30 ? ? Approved by: Korina Calvo M.D. on 12/21/2021 at 23:36? CT scan - abdomen/pelvis: Radiologist's Impression: [address] [address] [address] Scan Report Signed Patient: Lindsay Aguilar MR#: [id number] : 1935 Acct:[id number] Age/Sex: 86 / F Date of Service: 12/21/21 Loc: ED Accession Number: [id number] ?? Procedure: CT abdomen pelvis w con Ordering Provider: Leland Lal D.O. PROCEDURE:? CT ABDOMEN PELVIS W CON ? INDICATIONS:? severe abdomen pain, distension, vomiting ? TECHNIQUE:? After the administration of intravenous contrast, axial sections acquired from the lung bases to the pubic symphysis.? Coronal and sagittal reformats were performed.? For radiation dose reduction, the following was used:? automated exposure control, adjustment of mA and/or kV according to patient size.? ? COMPARISON:? [facility], CT, CT ANGIO ABDOMEN PELVIS, 01/21/2021, 17:17.? [facility], CT, ABDOMEN/PELVIS WITH CONTRAST, 06/18/2017, 8:29. ? FINDINGS:? Image quality:? Excellent.? ? Lung bases:? Minimal to small bilateral effusions, right greater than left.? Interstitial thickening and patchy bibasilar opacities.? Tiny hiatal hernia. Heart:? Moderate to markedly enlarged with postsurgical changes evident. ? ABDOMEN: Liver:? There is vascular shunting in the anterolateral right hepatic lobe.? Liver is otherwise normal. Gallbladder:? Surgically absent Biliary ducts:? Extrahepatic duct is mildly dilated, expected post cholecyst ectomy. Pancreas:? Normal. Spleen:? Normal size.? A few splenules present. Adrenal Glands:? No nodules. Kidneys and Ureters:? Small bilateral cortical cysts.? Symmetric enhancement.? No hydronephrosis. ? Stomach and Bowel:? Mildly hyperemic colonic mucosa.? No colon wall thickening.? No pericolonic inflammation.? Stomach and small bowel is normal. Peritoneum:? No abnormal intraperitoneal fluid.? No free air.? ? Ventral Wall: Tiny fat containing umbilical hernia.? Abdominal Nodes:? No retroperitoneal or mesenteric adenopathy by size criteria.? Vessels:? There is a large left anterolateral saccular abdominal aortic aneurysm with peripheral calcification measuring 6.1 x 4.7 cm measured in the axial plane, previously 5.8 x 4.4 cm on 01/21/21.? Additionally, immediately distal to this, there is a left posterolateral saccular aneurysm measuring 2.3 cm in oblique AP diameter, stable.? No periaortic inflammation or fluid.? The IVC is normal caliber. ? PELVIS: Pelvic Organs:? The uterus is absent.? Ovarian tissue is not identified. Bladder:? Normal. Pelvic Nodes: No enlarged lymph nodes.? Miscellaneous:? Small fat containing left inguinal hernia. ? Bones:? Mild L4 compression fracture along with degenerative disc disease at L3- 4.? Degeneration at the pubic symphysis. ? ? IMPRESSION:? ? 1. Mild diffuse colonic hyperemia without other signs of colitis.? This is nonspecific. ? 2. Very slight enlargement, 3 mm in each direction, of of saccular abdominal aortic aneurysm compared to 11 months ago. ? 3. New L4 compression fracture.? Correlate clinically.? ? ? Dictated by: Korina Calvo M.D. on 12/21/2021 at 23:36 ? ? Approved by: Korina Calov M.D. on 12/21/2021 at 23:43 ? MDM Narrative Medical decision making narrative: Frail elderly patient presents with increased work of breathing shortness of breath and fatigue compared to her visit earlier in the week. She is requiring twice the supplemental oxygen to remain in the mid 90s. She is significantly decompensated from her visit earlier in the week, minimal exertion makes her profoundly short of breath. She will require hospitalization for ongoing treatm ent of her exacerbation of COPD, CHF and likely ammonia. Stool culture pending for C diff evaluation as well. Discharge Plan Departure Patient Disposition: Admitted As Inpatient Clinical Impression: Acute exacerbation of CHF (congestive heart failure), Pneumonia, Chronic obstructive pulmonary disease with (acute) exacerbation, Acute clinical decompensation Admit Date/Time: 12/22/21 00:25 Admit Provider: Yessica Torres
--- NOTE | 2021-12-21 21:22 | DI.RAD.S_ITS ---
PROCEDURE: XR CHEST 1V INDICATIONS: SOB, hypoxemia TECHNIQUE: One view of the chest was acquired. COMPARISON: [facility], CR, XR CHEST 1V, 12/17/2021, 11:53. FINDINGS: Surgical changes and devices: Median sternotomy changes. Monitoring wires and probable epicardial pacer wires present. Lungs and pleura: Diffuse coarsening of the interstitial markings, chronic. Bibasilar airspace opacities, small. No significant effusion or pneumothorax. Mediastinum: Mild, stable cardiomegaly. Heavy atherosclerotic calcification. No significant central vascular congestion. Bones and chest wall: No suspicious bony lesions. Overlying soft tissues appear unremarkable. IMPRESSION: 1. Bibasilar opacities and chronic diffuse interstitial thickening. This may indicate chronic interstitial lung disease though acute underlying infection cannot be excluded. 2. Moderate, stable cardiomegaly with postsurgical changes. Dictated by: Korina Calvo M.D. on 12/21/2021 at 23:07 Approved by: Korina Calvo M.D. on 12/21/2021 at 23:08
[2021-12-21] MEDS: SODIUM CHLORIDE 0.9% 1,000 ML 150 ML IV (21:31)
[2021-12-21 21:43] LABS: Add Manual Diff / Slide Review NO; Basophils Absolute Auto 100 /uL (0-100); Basophils Percent Auto 0.8 % (0-2); Eosinophils Absolute Auto 300 /uL (0-450); Hematocrit 41.9 % (36-46); Hemoglobin 13.8 g/dL (12.0-16.0); Lymphocytes Absolute Auto 1100 /uL (1100-4500); Lymphocytes Percent Auto 12.2 % (25-40); Mean Corpuscular HGB Conc 32.9 % (30-36); Mean Corpuscular Hemoglobin 28.6 PG (26-34); Mean Corpuscular Volume 86.9 fL (80-100); Monocytes Absolute Auto 500 /uL (0-900); Monocytes Percent Auto 5.9 % (3-14); Neutrophils Absolute Auto 7000 /uL (1500-7000); Neutrophils Percent Auto 78.1 % (50-75); Platelet Count 240 X10^3/uL (150-400); Red Blood Cell Count 4.82 X10^6/uL (4.0-5.2); Red Cell Distribution Width 15.4 % (11.6-14.8)
[2021-12-21 21:50] LABS: INR 1.1 (0.9-1.3); Prothrombin Time 12.4 SECONDS (10.1-12.7)
[2021-12-21 21:53] LABS: D Dimer 927 ng/mL (<230)
[2021-12-21 21:54] LABS: Alanine Aminotransferase 19 IU/L (<35); Albumin Globulin Ratio 1.3 (1.0-2.8); Alkaline Phosphatase 67 U/L (38-126); Aspartate Aminotransferase 28 IU/L (14-36); BUN Creatinine Ratio 27.6 (6-22); Bilirubin Total 1.1 mg/dL (0.2-1.3); Blood Urea Nitrogen 21 mg/dL (7-17); Calcium 9.8 mg/dL (8.4-10.2); Carbon Dioxide 32 mmol/L (22-32); Chloride 99 mmol/L (98-107); Creatine Kinase 21 U/L (30-135); Estimated Glomerular Filt Rate > 60 mL/min (>60); Globulin 3.1 g/dL (1.7-4.1); Glucose 138 mg/dL (80-110); HEMOLYSIS < 15 (0-50); Lipase 49 U/L (23-300); Potassium 3.7 mmol/L (3.4-5.1); Sodium 137 mmol/L (137-145); Total Protein 7.1 g/dL (6.3-8.2)
[2021-12-21 21:55] LABS: Lactate (Lactic Acid) 1.6 mmol/L (0.7-2.1)
[2021-12-21 21:58] LABS: COVID19 -Nasal RAPID Negative (Negative)
[2021-12-21 22:06] LABS: NT-proBNP (BNP-Adult 18+) 7930 pg/mL (<450); Troponin I 0.051 ng/mL (0.01-0.034)
[2021-12-21 22:11] LABS: Procalcitonin 0.08 ng/mL (<0.5)
--- NOTE | 2021-12-21 22:21 | DI.CT.S_ITS ---
PROCEDURE: CT ANGIO CHEST PE PROTOCOL INDICATIONS: SOB, tachycardia, dry cough, hypoxemia, critical dimer TECHNIQUE: After the administration of intravenous contrast, 2 mm thick sections acquired from the pulmonary apices to the posterior costophrenic angles. 3-dimensional maximum intensity projection (MIP) coronal and sagittal reformats were then acquired through the thorax. For radiation dose reduction, the following was used: automated exposure control, adjustment of mA and/or kV according to patient size. COMPARISON: [facility], CT, CT ANGIO CHEST PE PROTOCOL, 09/25/2021, 6:20. FINDINGS: Image quality: Excellent. Pulmonary arteries: Pulmonary arteries are normal in size, and demonstrate no intraluminal filling defects to suggest central pulmonary embolism. Lungs and pleura: Moderate bilateral emphysematous change. Coarse interstitial thickening diffusely, and patchy alveolar opacities at both lung bases. Small right and trace left pleural effusions. Mild fluid in both fissures. Peripheral and central airways are patent and normal caliber. Mediastinum: The heart is diffusely enlarged. There is a probable coronary stent, coronary bypass grafting and median sternotomy change noted. No pericardial effusion. Epicardial pacing wires are noted. The thoracic aorta is normal caliber. Mild confluent mediastinal and hilar adenopathy, nonspecific. The esophagus demonstrates a tiny hiatal hernia. Bones and chest wall: No suspicious bony lesions. Ribs and thoracic spine appear intact throughout. Thyroid gland is partially imaged. No axillary or supraclavicular adenopathy. Abdomen: Upper abdomen demonstrates hepatic reflux of IV contrast. There is heavy atherosclerotic calcification and changes of cholecystectomy. Upper abdomen is otherwise unremarkable. IMPRESSION: 1. No pulmonary embolus. 2. Moderate to significant cardiomegaly. Along with mild minimal bilateral pleural effusions and interstitial thickening, this may indicate CHF. 3. Lung findings superimposed on moderate emphysema. 4. Underlying acute pneumonia cannot be entirely excluded. 5. Postsurgical changes in the heart. Dictated by: Korina Calvo M.D. on 12/21/2021 at 23:30 Approved by: Korina Calvo M.D. on 12/21/2021 at 23:36
--- NOTE | 2021-12-21 22:24 | DI.CT.S_ITS ---
PROCEDURE: CT ABDOMEN PELVIS W CON INDICATIONS: severe abdomen pain, distension, vomiting TECHNIQUE: After the administration of intravenous contrast, axial sections acquired from the lung bases to the pubic symphysis. Coronal and sagittal reformats were performed. For radiation dose reduction, the following was used: automated exposure control, adjustment of mA and/or kV according to patient size. COMPARISON: [facility], CT, CT ANGIO ABDOMEN PELVIS, 01/21/2021, 17:17. [facility], CT, ABDOMEN/PELVIS WITH CONTRAST, 06/18/2017, 8:29. FINDINGS: Image quality: Excellent. Lung bases: Minimal to small bilateral effusions, right greater than left. Interstitial thickening and patchy bibasilar opacities. Tiny hiatal hernia. Heart: Moderate to markedly enlarged with postsurgical changes evident. ABDOMEN: Liver: There is vascular shunting in the anterolateral right hepatic lobe. Liver is otherwise normal. Gallbladder: Surgically absent Biliary ducts: Extrahepatic duct is mildly dilated, expected post cholecystectomy. Pancreas: Normal. Spleen: Normal size. A few splenules present. Adrenal Glands: No nodules. Kidneys and Ureters: Small bilateral cortical cysts. Symmetric enhancement. No hydronephrosis. Stomach and Bowel: Mildly hyperemic colonic mucosa. No colon wall thickening. No pericolonic inflammation. Stomach and small bowel is normal. Peritoneum: No abnormal intraperitoneal fluid. No free air. Ventral Wall: Tiny fat containing umbilical hernia. Abdominal Nodes: No retroperitoneal or mesenteric adenopathy by size criteria. Vessels: There is a large left anterolateral saccular abdominal aortic aneurysm with peripheral calcification measuring 6.1 x 4.7 cm measured in the axial plane, previously 5.8 x 4.4 cm on 01/21/21. Additionally, immediately distal to this, there is a left posterolateral saccular aneurysm measuring 2.3 cm in oblique AP diameter, stable. No periaortic inflammation or fluid. The IVC is normal caliber. PELVIS: Pelvic Organs: The uterus is absent. Ovarian tissue is not identified. Bladder: Normal. Pelvic Nodes: No enlarged lymph nodes. Miscellaneous: Small fat containing left inguinal hernia. Bones: Mild L4 compression fracture along with degenerative disc disease at L3-4. Degeneration at the pubic symphysis. IMPRESSION: 1. Mild diffuse colonic hyperemia without other signs of colitis. This is nonspecific. 2. Very slight enlargement, 3 mm in each direction, of of saccular abdominal aortic aneurysm compared to 11 months ago. 3. New L4 compression fracture. Correlate clinically. Dictated by: Korina Calvo M.D. on 12/21/2021 at 23:36 Approved by: Korina Calvo M.D. on 12/21/2021 at 23:43
--- NOTE | 2021-12-21 23:26 | RT ---
ABG 4LPM PH 7.479, CO2 42.7 , PO2 99 , BE 8, HCO3 31.7 , TCO2 33, SO2 98%
[2021-12-22] VITALS (11 sets, daily range): BP systolic 153–205; BP diastolic 67–86; PULSE 73–87; RESP 18–34; TEMP 36–36.7; O2SAT 93–98; BMI 25.3
[2021-12-22] MEDS: FUROSEMIDE 40 MG/4 ML VIAL IV (00:25)
[2021-12-22] MEDS: cefTRIAXone 1,000 MG in SODIUM CHLORIDE 0.9% 100 ML 200 ML IV (00:26)
--- NOTE | 2021-12-22 00:40 | PC.NURSE ---
catheter placed prior to giving lasix pt c/o being too tired to get up to b[facility]
[2021-12-22 00:43] LABS: Appearance Urine UA CLEAR; Bilirubin Urine UA NEGATIVE (NEGATIVE); Color Urine UA YELLOW; Glucose Urine UA NEGATIVE (Negative); Ketones Urine UA NEGATIVE (NEGATIVE); Leukocyte Esterase Urine UA NEGATIVE (NEGATIVE); Nitrite Urine UA NEGATIVE (Negative); Occult Blood Urine UA NEGATIVE (Negative); Protein Urine UA NEGATIVE (Negative); Specific Gravity Urine UA <=1.005 (1.000-1.035); Urobilinogen Urine UA 0.2 E.U./dL (0.2)
[2021-12-22 00:49] LABS: RBC Urine 0-1/HPF (0-5/HPF); Squamous Epithelial Cell Urine None Seen (0-5/HPF); WBC Urine None Seen (0-5/HPF)
[2021-12-22 00:50] LABS: Bacteria Urine None Seen; Culture Indicated Urine Cult Not Indicated
[2021-12-22 01:17] LABS: Clostridium Difficile Tox PCR Negative for C. diff (Negative)
--- NOTE | 2021-12-22 02:02 | PM.HP.1 ---
History of Present Illness History of Present Illness Date Patient Seen: 12/22/21 Time Patient Seen: 02:03 Chief complaint: Increased SOB Narrative: This is an 86-year-old female with an abdominal aortic aneurysm, coronary disease, COPD, hypertension, hyperlipidemia and diarrhea who presents with about 5 days of increasingly more severe respiratory symptoms. She was seen here 5 days ago and diagnosed with pneumonia, treated with Augmentin but continues to be more short of breath. When she arrived she was in the high 80s on her usual home 2 L nasal cannula oxygen. She has been requiring 4 L nasal cannula to correct that hypoxia. She also developed diarrhea this evening in the emergency department that is suspicious for C diff. she has a history of congestive heart failure and the BNP is 7930. The D-dimer is 927 with a CTA of the chest shows no PE. She did have mild minimal bilateral pleural effusions and interstitial thickening consistent with congestive heart failure. The CT of the abdomen shows mild diffuse colonic hyperemia which is a nonspecific finding. There is a new L4 compression fracture which she has not mentioned any symptoms from. She has had no fevers. Her COVID test is negative. Patient History Medical History (Updated 12/22/21 @ 01:49 by Leland Lal DO) Aneurysm of infrarenal abdominal aorta Bilateral carpal tunnel syndrome CAD (coronary artery disease) COPD (chronic obstructive pulmonary disease) with emphysema Elevated TSH HTN (hypertension) Hyperlipidemia Unstable angina Valvular heart disease Surgical History H/O hysterectomy with oophorectomy H/O three vessel coronary artery bypass Hx of heart artery stent Status post cholecystectomy Family & Social History Family History Father Lung cancer Mother COPD (chronic obstructive pulmonary disease) Social History: household members family,children Safety & Behavioral: Feels Safe in Current Yes Environment Been Physically Hurt or No Threatened By a Person Tobacco & Substance use: Tobacco type cigarettes Smoking Status Former smoker alcohol intake never alcohol intake frequency 0-2 drinks per day Substance Use Type does not use Comment: Her son Herminio Pereira is her backup decision maker. She lives in [place] in her own home with her son who is blind. Meds Home Medications and Allergies Home Medications Medication Instructions Recorded Confirmed Type aspirin 81 mg tablet,delayed 81 mg PO QDAY #0 07/11/17 09/25/21 History release lisinopril 40 mg tablet 40 mg PO DAILY 04/19/18 09/25/21 History atorvastatin 20 mg tablet (Lipitor) 40 mg PO BEDTIME #180 tab 04/20/18 09/25/21 Rx albuterol sulfate 90 mcg/actuation 2 puff INHALATION Q4H PRN 07/07/18 09/25/21 History aerosol inhaler fluticasone 250 mcg-salmeterol 50 1 inh INHALATION BID 07/07/18 09/25/21 History mcg/dose blistr powdr for inhalation (Advair Diskus) fluticasone propionate 50 1 spray INTRANASAL BID PRN 07/07/18 09/25/21 History mcg/actuation nasal spray,suspension (Flonase Allergy Relief) levothyroxine 75 mcg tablet 75 mcg PO DAILY 07/07/18 09/25/21 History multivitamin 1 tab PO DAILY 07/07/18 09/25/21 History nitroglycerin 0.4 mg sublingual 0.4 mg SUBLINGUAL Q5-15M PRN 07/07/18 09/25/21 History tablet (Nitrostat) omega 2-rip-ntv-fish oil 1,000 mg 1,000 mg PO DAILY 07/07/18 09/25/21 History (120 mg-180 mg) capsule (Fish Oil) vitamin E 400 unit capsule 400 unit PO DAILY 07/07/18 09/25/21 History ipratropium 0.5 mg-albuterol 3 mg 3 ml INHALATION Q6-8H PRN #90 ml 11/04/18 09/25/21 Rx (2.5 mg base)/3 mL nebulization soln furosemide 20 mg tablet (Lasix) 20 mg PO BID #6 tab 01/16/19 09/25/21 Rx clopidogrel 75 mg tablet 75 mg PO DAILY 90 Days #90 tab 09/28/21 Rx amoxicillin 875 mg-potassium 1 tab PO Q12H #20 tab 12/17/21 Rx clavulanate 125 mg tablet potassium chloride 20 mEq 20 meq PO DAILY #7 tab 12/17/21 Rx tablet,extended release prednisone 20 mg tablet 20 mg PO DAILY #5 tab 12/17/21 Rx Allergies Allergy/AdvReac Type Severity Reaction Status Date / Time acarbose Allergy Intermediate Abdominal Verified 12/17/21 11:45 Pain amlodipine Allergy Intermediate Verified 12/17/21 11:45 chlorthalidone Allergy Intermediate Redness of Verified 12/17/21 11:45 Skin doxazosin [From Cardura] Allergy Intermediate Rash Verified 12/17/21 11:45 doxycycline Allergy Intermediate Rash Verified 12/17/21 11:45 gemfibrozil Allergy Intermediate Rash Verified 12/17/21 11:45 levofloxacin Allergy Intermediate Rash Verified 12/17/21 11:45 losartan Allergy Intermediate Rash Verified 12/17/21 11:45 metoprolol Allergy Intermediate Verified 12/17/21 11:45 montelukast [From Singulair] Allergy Intermediate Difficulty Verified 12/17/21 11:45 Breathing nifedipine Allergy Intermediate Chills Verified 12/17/21 11:45 Sulfa (Sulfonamide Allergy Intermediate rash Verified 12/17/21 11:45 Antibiotics) sulfamethoxazole Allergy Intermediate Rash Verified 12/17/21 11:45 [From Bactrim] trimethoprim [From Bactrim] Allergy Intermediate Rash Verified 12/17/21 11:45 budesonide [From Symbicort] Allergy Mild Anxiety Verified 12/17/21 11:45 carvedilol Allergy Mild Rash Verified 12/17/21 11:45 choline fenofibrate Allergy Mild Gastrointestinal Verified 12/17/21 11:45 [From Trilipix] Upset formoterol [From Symbicort] Allergy Mild Anxiety Verified 12/17/21 11:45 Review of Systems Review of Systems Narrative: Negative for fevers, chills, sweats, abdominal pain, nausea, vomiting, diarrhea until tonight, bleeding, rashes, joint pain flaring, seizures, headaches, new allergies Positive for shortness of breath and coughing Exam Vital Signs (past 8 hours): - 12/21/21 21:17 12/21/21 21:41 12/21/21 22:00 Pulse Rate 76 81 76 Respiratory Rate 36 H 41 H 15 Blood Pressure 175/79 H Pulse Oximetry 97 95 96 12/21/21 22:30 12/21/21 23:00 12/21/21 23:03 Pulse Rate 76 88 102 H Respiratory Rate 21 36 H 30 H Blood Pressure 216/95 H Pulse Oximetry 96 94 97 12/21/21 23:30 12/22/21 00:00 12/22/21 00:01 Pulse Rate 75 79 80 Respiratory Rate 22 23 26 H Blood Pressure 205/77 H Pulse Oximetry 96 98 98 12/22/21 00:30 12/22/21 00:32 Pulse Rate 75 80 Respiratory Rate 28 H 34 H Blood Pressure 195/81 H Pulse Oximetry 95 95 Oxygen Delivery Method Nasal Cannula Oxygen Flow Rate 4 Narrative Exam Narrative: She is alert and oriented x3. The diarrhea seems to be the most significant symptom she is having right now. No apparent distress Pupils are equally round and reactive to light and accommodation Sclerae are pink and nonicteric Extraocular muscles are intact There is no thyromegaly JVD is less than 6 cm No carotid bruits are heard Heart is irregularly irregular with frequent PVCs on telemetry. There is no murmur. Lungs have wheezes bilaterally with bibasilar crackles Abdomen is soft, bowel sounds positive, nontender, no organomegaly Extremities have no ankle edema Skin has no rash or jaundice Neurological exam: There is no tremor Cranial nerves 2-12 test intact Motor function is 4/[address] scan - abdomen: Radiologist's impression: MPRESSION: 1. Mild diffuse colonic hyperemia without other signs of colitis. This is nonspecific. 2. Very slight enlargement, 3 mm in each direction, of of saccular abdominal aortic aneurysm compared to 11 months ago. 3. New L4 compression fracture. Correlate clinically. CT scan - chest: Radiologist's impression: IMPRESSION: 1. No pulmonary embolus. 2. Moderate to significant cardiomegaly. Along with mild minimal bilateral pleural effusions and interstitial thickening, this may indicate CHF. 3. Lung findings superimposed on moderate emphysema. 4. Underlying acute pneumonia cannot be entirely excluded. 5. Postsurgical changes in the heart. Dictated by: Korina Calvo M.D. on 12/21/2021 at 23:30 Labs Result Diagrams: 12/21/21 21:30 12/21/21 21:30 Labs: Laboratory Results - last 24 hr 12/21/21 12/21/21 12/21/21 21:30 21:30 21:30 WBC 9.0 RBC 4.82 Hgb 13.8 Hct 41.9 MCV 86.9 MCH 28.6 MCHC 32.9 RDW 15.4 H Plt Count 240 Neut % (Auto) 78.1 H Lymph % (Auto) 12.2 L [place] % (Auto) 5.9 Eos % (Auto) 3.0 Baso % (Auto) 0.8 Neut # (Auto) 7000 Lymph # (Auto) 1100 [place] # (Auto) 500 Eos # (Auto) 300 Baso # (Auto) 100 PT 12.4 INR 1.1 D-Dimer 927 H Sodium 137 Potassium 3.7 Chloride 99 Carbon Dioxide 32 BUN 21 H Creatinine 0.76 Estimated GFR > 60 BUN/Creatinine Ratio 27.6 H Glucose 138 H Lactate Calcium 9.8 Total Bilirubin 1.1 AST 28 ALT 19 Alkaline Phosphatase 67 Total Creatine Kinase 21 L CK-MB (CK-2) TNP CK-MB (CK-2) Rel Index TNP Troponin I 0.051 H NT-Pro-B Natriuret Pep 7930 H Total Protein 7.1 Albumin 4.0 Globulin 3.1 Albumin/Globulin Ratio 1.3 Lipase 49 Procalcitonin 0.08 Urine Color Urine Appearance Urine pH Ur Specific [place] Urine Protein Urine Glucose (UA) Urine Ketones Urine Occult Blood Urine Nitrate Urine Bilirubin Urine Urobilinogen Ur Leukocyte Esterase Urine RBC Urine WBC Ur Squamous Epith Cells Urine Bacteria Ur Culture Indicated? C. difficile Tox (PCR) SARS-CoV-2 (PCR) 12/21/21 12/21/21 12/22/21 21:30 21:40 00:17 WBC RBC Hgb Hct MCV MCH MCHC RDW Plt Count Neut % (Auto) Lymph % (Auto) [place] % (Auto) Eos % (Auto) Baso % (Auto) Neut # (Auto) Lymph # (Auto) [place] # (Auto) Eos # (Auto) Baso # (Auto) PT INR D-Dimer Sodium Potassium Chloride Carbon Dioxide BUN Creatinine Estimated GFR BUN/Creatinine Ratio Glucose Lactate 1.6 Calcium Total Bilirubin AST ALT Alkaline Phosphatase Total Creatine Kinase CK-MB (CK-2) CK-MB (CK-2) Rel Index Troponin I NT-Pro-B Natriuret Pep Total Protein Albumin Globulin Albumin/Globulin Ratio Lipase Procalcitonin Urine Color Urine Appearance Urine pH Ur Specific [place] Urine Protein Urine Glucose (UA) Urine Ketones Urine Occult Blood Urine Nitrate Urine Bilirubin Urine Urobilinogen Ur Leukocyte Esterase Urine RBC Urine WBC Ur Squamous Epith Cells Urine Bacteria Ur Culture Indicated? C. difficile Tox (PCR) Negative for c. diff SARS-CoV-2 (PCR) Negative 12/22/21 00:18 WBC RBC Hgb Hct MCV MCH MCHC RDW Plt Count Neut % (Auto) Lymph % (Auto) [place] % (Auto) Eos % (Auto) Baso % (Auto) Neut # (Auto) Lymph # (Auto) [place] # (Auto) Eos # (Auto) Baso # (Auto) PT INR D-Dimer Sodium Potassium Chloride Carbon Dioxide BUN Creatinine Estimated GFR BUN/Creatinine Ratio Glucose Lactate Calcium Total Bilirubin AST ALT Alkaline Phosphatase Total Creatine Kinase CK-MB (CK-2) CK-MB (CK-2) Rel Index Troponin I NT-Pro-B Natriuret Pep Total Protein Albumin Globulin Albumin/Globulin Ratio Lipase Procalcitonin Urine Color Yellow Urine Appearance Clear Urine pH 7.0 Ur Specific [place] <=1.005 Urine Protein Negative Urine Glucose (UA) Negative Urine Ketones Negative Urine Occult Blood Negative Urine Nitrate Negative Urine Bilirubin Negative Urine Urobilinogen 0.2 Ur Leukocyte Esterase Negative Urine RBC 0-1/hpf D Urine WBC None seen Ur Squamous Epith Cells None seen Urine Bacteria None seen Ur Culture Indicated? Cult not indicated C. difficile Tox (PCR) SARS-CoV-2 (PCR) Assessment & Plan Assessment & Plan narrative: This is an 86-year-old female with an abdominal aortic aneurysm, coronary disease, COPD, hypertension, hyperlipidemia and diarrhea who presents with about 5 days of increasingly more severe respiratory symptoms. She was seen here 5 days ago and diagnosed with pneumonia, treated with Augmentin but continues to be more short of breath. COPD exacerbation with acute hypoxemic respiratory failure, present on admission. Active. -her saturation level was in the high 80s on her usual 2 L of nasal cannula home oxygen. She is requiring 4 L to maintain in the 90s. -IV Solu-Medrol, beta agonist therapy, oxygen 4 L Congestive heart failure, present on admission. Active. -BNP of 7000 and rib 30 with a D-dimer of 927. -chest x-ray and chest CT does show any obvious signs of CHF but the CT scan suggests possible CHF with mild bilateral pleural effusions and interstitial thickening -holding IV fluids and diurese when needed. Recent pneumonia diagnosis, present on admission. Active. -not confirmed on pulmonary imaging today. Hold antibiotics. Diarrhea, present on admission. Active. -likely a result of Augmentin use but per staff the odor was reminiscent of C diff. -C diff testing is pending L4 compression fracture, present on admission. Chronic. -not seen on previous imaging here but patient has no mention of symptoms today. Lovenox for DVT prevention. Time Spent With Patient Critical Care time: I spent a total of [] minutes of critical care time on this patient's care today; this time is exclusive of procedural time.
[2021-12-22] MEDS: SODIUM CHLORIDE 0.9% 1,000 ML 100 ML IV ×2 (02:47→14:58)
[2021-12-22] MEDS: methylPREDNISolone 125 MG/2 ML VIAL 60 MG IV ×2 (02:47→14:57)
[2021-12-22] MEDS: LEVOTHYROXINE 75 MCG TABLET PO (05:28)
[2021-12-22 06:36] LABS: PCO2 ABG 42.7 mmHg (35-45)
[2021-12-22 06:37] LABS: Fractionated Inspired Oxygen 36; HCO3 ABG 32 mmol/L (22-26); Oxygen Saturation ABG 98 % (95-100); PO2 ABG 99 mmHg (80-100); TCO2 ABG 33 mmol/L (21-31)
[2021-12-22 06:43] LABS: pH ABG 7.48 (7.35-7.45)
--- NOTE | 2021-12-22 07:50 | PM.PN.1 ---
Subjective Subjective Date Patient Seen: 12/22/21 Interval history: She is seen today to follow-up her respiratory distress with wheezing and COPD along with an episode of diarrhea yesterday that was tested for C diff and came back negative. The BNP is 6750. Her troponin is also high at 0.051. She is not having any chest pain. Exam Vital Signs (past 8 hours): - 12/22/21 00:00 12/22/21 00:01 12/22/21 00:30 Temperature Pulse Rate 79 80 75 Respiratory Rate 23 26 H 28 H Blood Pressure 205/77 H Pulse Oximetry 98 98 95 12/22/21 00:32 12/22/21 01:30 12/22/21 02:31 Temperature 97.1 F L Pulse Rate 80 87 Respiratory Rate 34 H 18 24 Blood Pressure 195/81 H 194/86 H Pulse Oximetry 95 94 98 12/22/21 05:48 Temperature 98.1 F Pulse Rate 73 Respiratory Rate 18 Blood Pressure 153/68 H Pulse Oximetry 96 Oxygen Delivery Method Nasal Cannula Oxygen Flow Rate 4 Narrative Exam Narrative: Alert and oriented x3. Mild respiratory distress is present. Heart is regular rate and rhythm without murmur Lungs have wheezes and scattered crackles bilaterally Extremities have no ankle edema Objective Labs Result Diagrams: 12/21/21 21:30 12/21/21 21:30 Labs: Laboratory Results - last 24 hr 12/21/21 12/21/21 12/21/21 21:30 21:30 21:30 WBC 9.0 RBC 4.82 Hgb 13.8 Hct 41.9 MCV 86.9 MCH 28.6 MCHC 32.9 RDW 15.4 H Plt Count 240 Neut % (Auto) 78.1 H Lymph % (Auto) 12.2 L [place] % (Auto) 5.9 Eos % (Auto) 3.0 Baso % (Auto) 0.8 Neut # (Auto) 7000 Lymph # (Auto) 1100 [place] # (Auto) 500 Eos # (Auto) 300 Baso # (Auto) 100 PT 12.4 INR 1.1 D-Dimer 927 H ABG pH ABG pCO2 ABG pO2 ABG HCO3 ABG Total CO2 ABG O2 Saturation ABG Base Excess FiO2 Sodium 137 Potassium 3.7 Chloride 99 Carbon Dioxide 32 BUN 21 H Creatinine 0.76 Estimated GFR > 60 BUN/Creatinine Ratio 27.6 H Glucose 138 H Lactate Calcium 9.8 Total Bilirubin 1.1 AST 28 ALT 19 Alkaline Phosphatase 67 Total Creatine Kinase 21 L CK-MB (CK-2) TNP CK-MB (CK-2) Rel Index TNP Troponin I 0.051 H NT-Pro-B Natriuret Pep 7930 H Total Protein 7.1 Albumin 4.0 Globulin 3.1 Albumin/Globulin Ratio 1.3 Lipase 49 Procalcitonin 0.08 Urine Color Urine Appearance Urine pH Ur Specific [place] Urine Protein Urine Glucose (UA) Urine Ketones Urine Occult Blood Urine Nitrate Urine Bilirubin Urine Urobilinogen Ur Leukocyte Esterase Urine RBC Urine WBC Ur Squamous Epith Cells Urine Bacteria Ur Culture Indicated? C. difficile Tox (PCR) SARS-CoV-2 (PCR) 12/21/21 12/21/21 12/21/21 21:30 21:40 22:12 WBC RBC Hgb Hct MCV MCH MCHC RDW Plt Count Neut % (Auto) Lymph % (Auto) [place] % (Auto) Eos % (Auto) Baso % (Auto) Neut # (Auto) Lymph # (Auto) [place] # (Auto) Eos # (Auto) Baso # (Auto) PT INR D-Dimer ABG pH 7.48 H ABG pCO2 42.7 ABG pO2 99 ABG HCO3 32 H ABG Total CO2 33 H ABG O2 Saturation 98 ABG Base Excess 8.0 H FiO2 36 Sodium Potassium Chloride Carbon Dioxide BUN Creatinine Estimated GFR BUN/Creatinine Ratio Glucose Lactate 1.6 Calcium Total Bilirubin AST ALT Alkaline Phosphatase Total Creatine Kinase CK-MB (CK-2) CK-MB (CK-2) Rel Index Troponin I NT-Pro-B Natriuret Pep Total Protein Albumin Globulin Albumin/Globulin Ratio Lipase Procalcitonin Urine Color Urine Appearance Urine pH Ur Specific [place] Urine Protein Urine Glucose (UA) Urine Ketones Urine Occult Blood Urine Nitrate Urine Bilirubin Urine Urobilinogen Ur Leukocyte Esterase Urine RBC Urine WBC Ur Squamous Epith Cells Urine Bacteria Ur Culture Indicated? C. difficile Tox (PCR) SARS-CoV-2 (PCR) Negative 12/22/21 12/22/21 00:17 00:18 WBC RBC Hgb Hct MCV MCH MCHC RDW Plt Count Neut % (Auto) Lymph % (Auto) [place] % (Auto) Eos % (Auto) Baso % (Auto) Neut # (Auto) Lymph # (Auto) [place] # (Auto) Eos # (Auto) Baso # (Auto) PT INR D-Dimer ABG pH ABG pCO2 ABG pO2 ABG HCO3 ABG Total CO2 ABG O2 Saturation ABG Base Excess FiO2 Sodium Potassium Chloride Carbon Dioxide BUN Creatinine Estimated GFR BUN/Creatinine Ratio Glucose Lactate Calcium Total Bilirubin AST ALT Alkaline Phosphatase Total Creatine Kinase CK-MB (CK-2) CK-MB (CK-2) Rel Index Troponin I NT-Pro-B Natriuret Pep Total Protein Albumin Globulin Albumin/Globulin Ratio Lipase Procalcitonin Urine Color Yellow Urine Appearance Clear Urine pH 7.0 Ur Specific [place] <=1.005 Urine Protein Negative Urine Glucose (UA) Negative Urine Ketones Negative Urine Occult Blood Negative Urine Nitrate Negative Urine Bilirubin Negative Urine Urobilinogen 0.2 Ur Leukocyte Esterase Negative Urine RBC 0-1/hpf D Urine WBC None seen Ur Squamous Epith Cells None seen Urine Bacteria None seen Ur Culture Indicated? Cult not indicated C. difficile Tox (PCR) Negative for c. diff SARS-CoV-2 (PCR) PFSH Medical History (Updated 12/22/21 @ 01:49 by Lealnd Lal DO) Aneurysm of infrarenal abdominal aorta Bilateral carpal tunnel syndrome CAD (coronary artery disease) COPD (chronic obstructive pulmonary disease) with emphysema Elevated TSH HTN (hypertension) Hyperlipidemia Unstable angina Valvular heart disease Surgical History H/O hysterectomy with oophorectomy H/O three vessel coronary artery bypass Hx of heart artery stent Status post cholecystectomy Family History Father Lung cancer Mother COPD (chronic obstructive pulmonary disease) Social History household members: family and children Smoking Status: Former smoker alcohol intake: never Assessment & Plan Assessment & Plan narrative: This is an 86-year-old female with an abdominal aortic aneurysm, coronary disease, COPD, hypertension, hyperlipidemia and diarrhea who presents with about 5 days of increasingly more severe respiratory symptoms.? She was seen here 5 days ago and diagnosed with pneumonia, treated with Augmentin but continues to be more short of breath. COPD exacerbation with acute hypoxemic respiratory failure, present on admission.? Active.? -her saturation level was in the high 80s on her usual 2 L of nasal cannula home oxygen.? She is requiring 4 L to maintain in the 90s.? -IV Solu-Medrol, beta agonist therapy, oxygen 4 L Congestive heart failure, present on admission.? Active.? -BNP of 6750, Troponin also dropping to 0.040? -chest x-ray and chest CT does show any obvious signs of CHF but the CT scan suggests possible CHF with mild bilateral pleural effusions and interstitial thickening -holding IV fluids and diurese when needed.? Recent pneumonia diagnosis, present on admission.? Active.? -not confirmed on pulmonary imaging today.? Hold off on antibiotics.? Diarrhea, present on admission.? Active.? -likely a result of Augmentin use -C diff testing is negative L4 compression fracture, present on admission.? Chronic.? -not seen on previous imaging here but patient has no symptoms today. Lovenox for DVT prevention. Time Spent With Patient Critical Care time: I spent a total of [] minutes of critical care time on this patient's care today; this time is exclusive of procedural time.
[2021-12-22] MEDS: BUDESONIDE 0.5 MG/2 ML NEB INH ×2 (08:54→19:23)
[2021-12-22] MEDS: ALBUTEROL 2.5 MG/3 ML NEB (ADULT) INH ×4 (08:54→19:23)
[2021-12-22 09:04] LABS: NT-proBNP (BNP-Adult 18+) 6750 pg/mL (<450)
[2021-12-22] MEDS: lisinopriL 20 MG TABLET 40 MG PO (09:34)
[2021-12-22] MEDS: ASPIRIN EC 81 MG TABLET PO (09:34)
[2021-12-22] MEDS: CLOPIDOGREL 75 MG TABLET PO (09:34)
--- NOTE | 2021-12-22 10:29 | PC.NURSE ---
Patient is alert and oriented x3, she has ivf infusing and she is tolerating this well. Winston putting out yellow urine. Patient states that she is tired and does not feel well. LS with ins/exp wheezes throughout, slight sob noted when talking but resolves at rest. Will continue to monitor patients progress.
--- NOTE | 2021-12-22 14:01 | CM.DANOTE ---
Discharge Assessment Note: Patient is 86yo female admitted for SOB, CHF, exacerbation of COPD; patient assigned to hospitalist team. There was initial concern for C Diff but the test was negative; hospitalist reported diarrhea most likely due to antibiotics taken for prior recent diagnosis of pneumonia. Patient uses O2 at home from [employer]; patient reporting 2L but recently up to 4L at home. Patient uses portable O2 when she is at work ([employer]) or attending congregational/running errands in community. 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 Patient reported no history with HH or SNF and no adaptive devices or DME use. PCP: Allie Fleming INS: [facility] Patient reported her son who resides in [place] could be transport home if he is in town when she discharges but she anticipates she will need to contact a congregational friend. Patient may require transportation assistance. HH may be an option should patient need rehab but continue to refuse SNF placement. There are not pending PT/OT orders at the time of this initial assessment. 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 Yes Advance Directives on File No History Provided By Patient,Medical Record Has Patient been admitted in last 30 No days? Prior Living Arrangements House Household Members family,children Comment adult son, Bunny, who is blind Type of transporation used prior to Relies on Others admit Independent with ADL's Yes Is patient alert and oriented? 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 Discharge Plan Home Transportation Arrangement Likely son Bunny who lives in [place] can transport home, possibly congregational friend or may need transportation assistance as Bunny is out of town for work Referrals Initiated None needed Additional Comment Pending PT/OT eval and recommendations Whiteboard Updated in Patient Room with Yes name and ext. # of Jewelry Casting Model Maker Review Status In Process Next Review Type Continued Stay Review
[2021-12-22] MEDS: ATORVASTATIN 20 MG TABLET 40 MG PO (20:50)
[2021-12-23] VITALS: BP 129/64; PULSE 94; RESP 18; TEMP 36.3; O2SAT 99
[2021-12-23] MEDS: methylPREDNISolone 125 MG/2 ML VIAL 60 MG IV (04:30)
[2021-12-23] MEDS: LEVOTHYROXINE 75 MCG TABLET PO (05:00)
[2021-12-23 05:09] LABS: Add Manual Diff / Slide Review NO; Basophils Absolute Auto 0 /uL (0-100); Eosinophils Absolute Auto 0 /uL (0-450); Hematocrit 39.9 % (36-46); Hemoglobin 13.1 g/dL (12.0-16.0); Lymphocytes Absolute Auto 400 /uL (1100-4500); Mean Corpuscular HGB Conc 32.7 % (30-36); Mean Corpuscular Hemoglobin 28.6 PG (26-34); Mean Corpuscular Volume 87.3 fL (80-100); Monocytes Absolute Auto 300 /uL (0-900); Monocytes Percent Auto 2.2 % (3-14); Neutrophils Absolute Auto 11200 /uL (1500-7000); Neutrophils Percent Auto 94.8 % (50-75); Platelet Count 248 X10^3/uL (150-400); Red Blood Cell Count 4.57 X10^6/uL (4.0-5.2); Red Cell Distribution Width 14.6 % (11.6-14.8); White Blood Cell Count 11.8 X10^3/uL (4.5-11.0)
[2021-12-23 05:20] LABS: BUN Creatinine Ratio 28.8 (6-22); Blood Urea Nitrogen 21 mg/dL (7-17); Calcium 9.6 mg/dL (8.4-10.2); Carbon Dioxide 32 mmol/L (22-32); Chloride 101 mmol/L (98-107); Estimated Glomerular Filt Rate > 60 mL/min (>60); Glucose 153 mg/dL (80-110); HEMOLYSIS 19 (0-50); Potassium 4.2 mmol/L (3.4-5.1); Sodium 138 mmol/L (137-145)
[2021-12-23 06:00] VITALS: BP 147/63; PULSE 88; RESP 18; TEMP 36.1; O2SAT 98
[2021-12-23 07:00] VITALS: BP 146/74; PULSE 94; RESP 14; TEMP 36.4; O2SAT 97
[2021-12-23 08:29] VITALS: BP 146/76; PULSE 94
[2021-12-23] MEDS: ASPIRIN EC 81 MG TABLET PO (08:29)
[2021-12-23] MEDS: CLOPIDOGREL 75 MG TABLET PO (08:29)
[2021-12-23] MEDS: lisinopriL 20 MG TABLET 40 MG PO (08:29)
[2021-12-23] MEDS: FUROSEMIDE 40 MG/4 ML VIAL IV (08:30)
[2021-12-23] MEDS: BUDESONIDE 0.5 MG/2 ML NEB INH (08:44)
[2021-12-23] MEDS: ALBUTEROL 2.5 MG/3 ML NEB (ADULT) INH (08:44)
--- NOTE | 2021-12-23 09:16 | PM.DS.1 ---
History of Present Illness History of Present Illness Chief complaint: Increased SOB Narrative: Per admitting physician: This is an 86-year-old female with an abdominal aortic aneurysm, coronary disease, COPD, hypertension, hyperlipidemia and diarrhea who presents with about 5 days of increasingly more severe respiratory symptoms.? She was seen here 5 days ago and diagnosed with pneumonia, treated with Augmentin but continues to be more short of breath.? When she arrived she was in the high 80s on her usual home 2 L nasal cannula oxygen.? She has been requiring 4 L nasal cannula to correct that hypoxia.? She also developed diarrhea this evening in the emergency department that is suspicious for C diff. she has a history of congestive heart failure and the BNP is 7930.? The D-dimer is 927 with a CTA of the chest shows no PE.? She did have mild minimal bilateral pleural effusions and interstitial thickening consistent with congestive heart failure.? The CT of the abdomen shows mild diffuse colonic hyperemia which is a nonspecific finding.? There is a new L4 compression fracture which she has not mentioned any symptoms from.? She has had no fevers.? Her COVID test is negative. Discharge Providers Provider Date of admission: 12/22/21 00:25 Discharge Date: 12/23/21 Primary care physician: Allie Flemign MD Discharge provider: Rudy Corado MD Summary Hospital Course Discharge Diagnosis: 1. Acute on chronic hypoxemic respiratory failure 2. COPD exacerbation 3. CHF exacerbation, reduced EF 4. Chronic L4 compression fracture 5. History of AAA 6. CAD 7. HTN Hospital Course: She was admitted with acutely worsening respiratory failure and is usually on 2L at home. ON day of discharge she felt back to normal, was on 2L oxygen and requesting discharge home. She had previously been treated with augmentin for possible pneumonia. This admission was more consistent with a COPD exacerbation with mild CHF exacerbation. She improved with nebs, steroids and azithromycin. She also was diuresed with lasix. She has known reduced EF, is on lisinopril, and is not on beta-blockers due to multiple allergies. She was given prescription for steroids, antibiotics, and lasix on discharge and encouraged to follow with her PCP. Exam Vital Signs (past 8 hours): Oxygen Delivery Method Nasal Cannula Oxygen Flow Rate 2 Narrative Exam Narrative: GEN: no acute distress CV: regular rate and rhythm, no murmurs PULM: coarse breath sounds, bilaterally Objective Labs Result Diagrams: 12/23/21 04:54 12/23/21 04:54 [facility] Medical History (Updated 12/22/21 @ 01:49 by Leland Lal DO) Aneurysm of infrarenal abdominal aorta Bilateral carpal tunnel syndrome CAD (coronary artery disease) COPD (chronic obstructive pulmonary disease) with emphysema Elevated TSH HTN (hypertension) Hyperlipidemia Unstable angina Valvular heart disease Surgical History H/O hysterectomy with oophorectomy H/O three vessel coronary artery bypass Hx of heart artery stent Status post cholecystectomy Family History Father Lung cancer Mother COPD (chronic obstructive pulmonary disease) Social History household members: family and children Smoking Status: Former smoker alcohol intake: never Discharge Plan Discharge Plan Patient Disposition: Home Provider Discharge Comment: Ms. Aguilar was admitted with shortness of breath. She had a COPD flare and some fluid build from that was related to this. She improved with medications. She is given a few more days of antibiotics and steroids. She is also given a prescription for lasix for fluid retention. She should follow up with her PCP within one week to see if she should have her lasix adjusted. Discharge orders & Medications Prescriptions: New prednisone 20 mg tablet 40 mg PO DAILY 4 Days Qty: 8 0RF azithromycin 250 mg tablet 250 mg PO DAILY Qty: 4 0RF furosemide [Lasix] 20 mg tablet 20 mg PO DAILY Qty: 30 0RF Continued aspirin 81 MG tablet,delayed release (DR/EC) 81 mg PO QDAY Qty: 0 0RF lisinopril 40 mg Tablet 40 mg PO DAILY 0RF atorvastatin [Lipitor] 20 mg Tablet 40 mg PO BEDTIME Qty: 180 0RF Label Comments: patient states she forgets to take levothyroxine 75 mcg tablet 75 mcg PO DAILY 0RF albuterol sulfate 90 mcg/actuation HFA aerosol inhaler 2 puff Inhalation Q4H PRN (Reason: Shortness Of Breath) 0RF fluticasone propion-salmeterol [Advair Diskus] 250-50 mcg/dose Blister With Device 1 inh INHALATION BID 0RF Label Comments: patient states on Advair. no record in RX processes. Also states unsure of when and how often she is supposed to use various inhalers. omega 2-yjz-qop-fish oil [Fish Oil] 1,000 mg (120 mg-180 mg) Capsule 1,000 mg PO DAILY 0RF nitroglycerin [Nitrostat] 0.4 mg Tablet, Sublingual 0.4 mg SUBLINGUAL Q5-15M PRN (Reason: Chest Pain) 0RF fluticasone propionate [Flonase Allergy Relief] 50 mcg/actuation [place],Suspension 1 spray Intranasal BID PRN (Reason: Allergy Symptoms) 0RF vitamin E 400 unit Capsule 400 unit PO DAILY 0RF multivitamin Tablet,Chewable 1 tab PO DAILY 0RF ipratropium-albuterol 0.5 mg-3 mg(2.5 mg base)/3 mL solution for nebulization 3 ml INHALATION Q6-8H PRN (Reason: shortness of breath or wheezing) Qty: 90 0RF clopidogrel 75 mg Tablet 75 mg PO DAILY 90 Days Qty: 90 4RF potassium chloride 20 mEq tablet extended release 20 meq PO DAILY Qty: 7 0RF diltiazem HCl [DILT-XR] 240 mg Capsule,Ext.Rel 24h Degradable 240 mg PO DAILY 0RF Discontinued furosemide [Lasix] 20 mg tablet 20 mg PO BID Qty: 6 0RF prednisone 20 mg tablet 20 mg PO DAILY Qty: 5 0RF Rx Instructions: administer with food or milk amoxicillin-pot clavulanate 875-125 mg tablet 1 tab PO Q12H Qty: 20 0RF Follow up/Referrals: Allie Fleming MD [Primary Care Provider] - Diet/Activity/Treatments Diet: Low-sodium Discharge Data Primary Care Provider: Allie Fleming [facility] [place] The patient has current or prior documentation of left ventricular ejection fraction (LVEF) less than 40%, or moderate or severely depressed left ventricular systolic function.: Yes A. The patient was prescribed or already taking an Angiotensin-Converting Enzyme (URIEL) Inhibitor, or Angiotensin Receptor Ro (ARB).: Yes B. The patient was prescribed or already taking a beta-ro. [If Yes to Both A & B, STOP here]: No Patient not prescribed/taking Beta-ro for medical/patient/system reason(s) including (ex: allergy, intolerance, contraindication).: allergy
[2021-12-23 09:23] VITALS: RESP 24; O2SAT 97
[2021-12-23] MEDS: FUROSEMIDE 40 MG TABLET PO (10:12)
[2021-12-23 12:00] VITALS: BP 140/68; PULSE 68; RESP 16; TEMP 35.8; O2SAT 100
--- NOTE | 2021-12-23 12:12 | CM.DPC ---
DCP Cont: Met with patient in her room. Introduced self and role. Patient pleasant, she was sitting up in her chair on her oxygen. She is looking forward to going home today. She is [employer] member in [place], and her son is picking her up at 1400. Asked her if she was interested in home health, she declined. Stated, I should be fine, looking forward to going home to my son. Her son is 54, lives with her, he is blind, but has resources through [facility]. Patient is on home oxygen through [employer]. 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 P: Patient is to discharge home today. Tayler Pratt RN/Wrap Checker
--- NOTE | 2021-12-23 13:20 | PC.NURSE ---
Pt is 89 years old female, very pleasant and alert and oriented x4. VSS, pt is on 2L O2 which is baseline to her. Pt denied pain. Pt walked with her oxygen and showed no s/s SOB, or desats. Pt walks independent and no use of walker. Continued chronic gambino. Pt did well walking in the hallway with her oxygen so pt is ready to d/c to her home. Pt will be picked up by her son's friend after lunch. D/c instructions were given which includes CHF and fall risk. No other changes.
== END 2021-12-23 15:04 | disposition home or self-care (01) | DRG 190 ==
LOC: ED 21:58 → AC 12-22 00:26
PROVIDERS: Admitting Provider Family Medicine; Emergency Provider Emergency Medicine; Family Provider Internal Medicine; PCP Internal Medicine; Referring Provider Emergency Medicine; Visit Provider Family Medicine
DX: J44.1 Chronic obstructive pulmonary disease with (acute) exacerbation (principal); I50.23 Acute on chronic systolic (congestive) heart failure; J96.21 Acute and chronic respiratory failure with hypoxia; T36.0X5A Adverse effect of penicillins, initial encounter; T36.1X5A Adverse effect of cephalosporins and other beta-lactam antibiotics, initial encounter; R19.7 Diarrhea, unspecified; I11.0 Hypertensive heart disease with heart failure; E78.5 Hyperlipidemia, unspecified; I25.10 Atherosclerotic heart disease of native coronary artery without angina pectoris; I71.4 Abdominal aortic aneurysm, without rupture; Z95.5 Presence of coronary angioplasty implant and graft; Z20.822 Contact with and (suspected) exposure to COVID-19; Z95.1 Presence of aortocoronary bypass graft; Z87.891 Personal history of nicotine dependence; Z99.81 Dependence on supplemental oxygen
CPT/HCPCS: 36415; 36600; 71045; 71275; 74177; 80048; 80053; 81001; 82550; 82805; 83605; 83690; 83880; 84145; 84484; 85025; 85379; 85610; 87040; 87493; 87635; 93005; 94640; 96365; 96375; 99284; 99285; C9803; J0696; J1940; J2930; J7613; Q9967

== ENCOUNTER 2022-01-04 18:35 | Emergency (ER) | payer OTHER, SELFPAY ==
[2021-12-22 01:28] VITALS: BMI 25.3
[2022-01-04] VITALS (21 sets, daily range): BP systolic 158–199; BP diastolic 75–99; PULSE 79–104; RESP 20–33; TEMP 37.1; O2SAT 96–100; BMI 24.0
--- NOTE | 2022-01-04 18:38 | DI.RAD.S_ITS ---
PROCEDURE: XR CHEST 1V INDICATIONS: chest pressure, wheezing, SOB TECHNIQUE: One view of the chest was acquired. COMPARISON: [facility], CT, CT ANGIO CHEST PE PROTOCOL, 12/21/2021, 22:35. [facility], CR, XR CHEST 1V, 12/21/2021, 21:49. [facility], CR, XR CHEST 1V, 12/17/2021, 11:53. FINDINGS: Surgical changes and devices: Post median sternotomy. External cardiac pacing wires suspected. Lungs and pleura: Hazy opacity at the left costophrenic angle. Emphysematous change. No pleural effusions or pneumothorax. Mediastinum: Mediastinal contours appear unchanged. Calcified aortic arch. Heart size is enlarged. Bones and chest wall: No suspicious bony lesions. Overlying soft tissues appear unremarkable. IMPRESSION: Hazy opacity at the lower left costophrenic angle. This could be due to atelectasis or pneumonia. Emphysematous change. Cardiomegaly. Dictated by: Marito Buchanan M.D. on 01/04/2022 at 20:02 Approved by: Marito Buchanan M.D. on 01/04/2022 at 20:05
--- NOTE | 2022-01-04 18:46 | ED.CHESTPAIN ---
HPI - Chest Pain General Chief Complaint: Chest Pain Stated Complaint: Heavy Chest Time Seen by Provider: 01/04/22 18:38 Source: EMS Mode of arrival: EMS History of Present Illness HPI narrative: 86-year-old female former smoker with extensive cardiac history including prior CABG and multiple stents, CHF and COPD on home oxygen at 2 L presents by EMS for evaluation of chest pressure that started upon waking from a nap at 1730 tonight. She denies any obvious provocation or radiation of the discomfort but does state that she took 1 nitro and the discomfort completely resolved. She states that at its most it was a 5/10 and pressure-like. She denies associated symptoms such as dizziness, weakness, nausea, vomiting, unexplained diaphoresis lightheadedness. She denies any recent exercise intolerance. Patient routinely takes 2 baby aspirin at home and EMS gave an additional aspirin 182 mg. She had a minor wheeze en route and was encouraged to take a puff or two of her inhaler which resolved the wheezing. She is completely asymptomatic on her arrival. Related Data Home Medications Medication Instructions Recorded Confirmed aspirin 81 mg tablet,delayed 81 mg PO QDAY #0 07/11/17 12/22/21 release lisinopril 40 mg tablet 40 mg PO DAILY 04/19/18 12/22/21 albuterol sulfate 90 mcg/actuation 2 puff INHALATION Q4H PRN 07/07/18 12/22/21 aerosol inhaler fluticasone 250 mcg-salmeterol 50 1 inh INHALATION BID 07/07/18 12/22/21 mcg/dose blistr powdr for inhalation (Advair Diskus) fluticasone propionate 50 1 spray INTRANASAL BID PRN 07/07/18 12/22/21 mcg/actuation nasal spray,suspension (Flonase Allergy Relief) levothyroxine 75 mcg tablet 75 mcg PO DAILY 07/07/18 12/22/21 multivitamin 1 tab PO DAILY 07/07/18 12/22/21 nitroglycerin 0.4 mg sublingual 0.4 mg SUBLINGUAL Q5-15M PRN 07/07/18 12/22/21 tablet (Nitrostat) omega 5-sfe-lth-fish oil 1,000 mg 1,000 mg PO DAILY 07/07/18 12/22/21 (120 mg-180 mg) capsule (Fish Oil) vitamin E 400 unit capsule 400 unit PO DAILY 07/07/18 12/22/21 diltiazem HCl 240 mg 240 mg PO DAILY 12/22/21 12/22/21 capsule,extended release 24 hr, controlled (DILT-XR) Previous Rx's Medication Instructions Recorded atorvastatin 20 mg tablet (Lipitor) 40 mg PO BEDTIME #180 tab 04/20/18 ipratropium 0.5 mg-albuterol 3 mg 3 ml INHALATION Q6-8H PRN #90 ml 11/04/18 (2.5 mg base)/3 mL nebulization soln clopidogrel 75 mg tablet 75 mg PO DAILY 90 Days #90 tab 09/28/21 potassium chloride 20 mEq 20 meq PO DAILY #7 tab 12/17/21 tablet,extended release azithromycin 250 mg tablet 250 mg PO DAILY #4 tab 12/23/21 furosemide 20 mg tablet (Lasix) 20 mg PO DAILY #30 tab 12/23/21 Allergies Allergy/AdvReac Type Severity Reaction Status Date / Time acarbose Allergy Intermediate Abdominal Verified 01/04/22 18:42 Pain amlodipine Allergy Intermediate Verified 01/04/22 18:42 chlorthalidone Allergy Intermediate Redness of Verified 01/04/22 18:42 Skin doxazosin [From Cardura] Allergy Intermediate Rash Verified 01/04/22 18:42 doxycycline Allergy Intermediate Rash Verified 01/04/22 18:42 gemfibrozil Allergy Intermediate Rash Verified 01/04/22 18:42 levofloxacin Allergy Intermediate Rash Verified 01/04/22 18:42 losartan Allergy Intermediate Rash Verified 01/04/22 18:42 metoprolol Allergy Intermediate Verified 01/04/22 18:42 montelukast [From Singulair] Allergy Intermediate Difficulty Verified 01/04/22 18:42 Breathing nifedipine Allergy Intermediate Chills Verified 01/04/22 18:42 Sulfa (Sulfonamide Allergy Intermediate rash Verified 01/04/22 18:42 Antibiotics) sulfamethoxazole Allergy Intermediate Rash Verified 01/04/22 18:42 [From Bactrim] trimethoprim [From Bactrim] Allergy Intermediate Rash Verified 01/04/22 18:42 budesonide [From Symbicort] Allergy Mild Anxiety Verified 01/04/22 18:42 carvedilol Allergy Mild Rash Verified 01/04/22 18:42 choline fenofibrate Allergy Mild Gastrointestinal Verified 01/04/22 18:42 [From Trilipix] Upset formoterol [From Symbicort] Allergy Mild Anxiety Verified 01/04/22 18:42 Review of Systems Review of Systems Narrative: GENERAL: See HPI HEENT: Denies sinus pain, ear pain, sore throat, difficulty swallowing, dizziness. RESPIRATORY: See HPI CARDIOVASCULAR: See HPI GASTROINTESTINAL: Denies nausea, vomiting, abdominal pain, diarrhea, constipation, melena. : Denies dysuria, frequency, incontinence, hematuria, urinary retention. MUSCULOSKELETAL: denies weakness, joint pain, or bony pain SKIN: Denies rash, skin lesions, or other NEUROLOGIC: Denies weakness, headache, numbness, change in speech, confusion, seizures, incoordination. PSYCHIATRIC: No concerning psychosocial issues. 12 point review of systems is negative except for those stated above Patient History Medical History (Updated 01/05/22 @ 01:23 by Leland Lal DO) Aneurysm of infrarenal abdominal aorta Bilateral carpal tunnel syndrome CAD (coronary artery disease) COPD (chronic obstructive pulmonary disease) with emphysema Elevated TSH HTN (hypertension) Hyperlipidemia Unstable angina Valvular heart disease Surgical History H/O hysterectomy with oophorectomy H/O three vessel coronary artery bypass Hx of heart artery stent Status post cholecystectomy Family History Father Lung cancer Mother COPD (chronic obstructive pulmonary disease) Social History household members: family and children Smoking Status: Former smoker alcohol intake: never Smoking Status: Former smoker alcohol intake frequency: 0-2 drinks per day Substance Use Type: does not use Exam Narrative Exam Narrative: GENERAL: [86] year old patient appears stated age. Well-developed patient, in mild distress. HEAD: Atraumatic. Normocephalic. EYES: Pupils equal round and reactive. Extraocular motions intact. No scleral icterus. No injection or drainage. ENT: Nose without bleeding, purulent drainage. Throat without erythema, tonsillar hypertrophy or exudate. Airway patent. NECK: Trachea midline. Non tender CARDIOVASCULAR: Regular rate and rhythm without murmurs, gallops, or rubs. RESPIRATORY: Clear to auscultation. Breath sounds equal bilaterally. No wheezes, rales, or rhonchi. GASTROINTESTINAL: Abdomen soft, non-tender, nondistended. EXTREMITIES: No edema or joint tenderness. BACK: Nontender without deformity or crepitance. No flank tenderness. NEURO: AOx3. SKIN: No rash or erythema of visible areas Initial Vital Signs Initial Vital Signs: Vital Signs Pulse Rate 86 01/04/22 18:40 Respiratory Rate 26 H 01/04/22 18:40 Pulse Oximetry 99 01/04/22 18:40 Course Orders Ordered: ED Orders 01/04/22 18:38 XR chest 1V Stat EKG-12 Lead Stat 01/04/22 18:48 Complete Blood Count AUTO DIFF Stat Comprehensive Metabolic Panel Stat D Dimer Stat Lipase Stat NT-proBNP (BNP-Adult 18+) Stat Partial Thromboplastin Time Q6H Procalcitonin Stat Prothrombin Time INR Stat Troponin & CK Cardiac Panel Stat 01/04/22 20:23 COVID19 -Nasal RAPID/Pre-Proc Stat 01/04/22 22:07 EKG-12 Lead Stat 01/04/22 22:12 Trop I [Troponin I] Stat 01/05/22 02:15 Partial Thromboplastin Time Q6H 01/05/22 08:15 Partial Thromboplastin Time Q6H 01/05/22 14:15 Partial Thromboplastin Time Q6H Sodium Chloride (Normal Saline 0.9%) 1,000 mls @ 150 mls/hr IV CONT ROLANDA Last Admin: 01/04/22 20:50 Dose: Not Given Documented by: DARON Heparin Sodium/Dextrose (Heparin Drip) 25,000 unit in 500 mls @ 12.954 mls/hr IV CONT ROLANDA; Protocol Last Admin: 01/04/22 20:34 Dose: 12 units/kg/hr, 12.954 mls/hr Documented by: DARON Discontinued Medications Atorvastatin Calcium (Atorvastatin 20 Mg Tablet) 40 mg PO NOW ONE Stop: 01/04/22 22:31 Last Admin: 01/04/22 22:53 Dose: 40 mg Documented by: DARON Heparin Sodium (Porcine) (Heparin 5,000 Unit/Ml Vial) 4,000 unit IV NOW ONE Stop: 01/04/22 20:13 Last Admin: 01/04/22 20:35 Dose: 4,000 unit Documented by: DARON Reevaluation(s) Reevaluation #1: Patient continues to be pain-free, resting comfortably Time: 20:19 Consultations Consultation #1: call to patient cardiology group (Dr. Case) recommends heparin, transfer for heart cath. Time: 20:20 Consultation #2: [facility] - no beds [facility] - no beds [place] - no beds - will call back. Dr. Tamez has gladly accepted patient Vital Signs Vital signs: Vital Signs - 8 hr 01/04/22 18:40 01/04/22 18:41 01/04/22 18:42 Temperature 98.7 F Pulse Rate 86 88 86 Respiratory Rate 26 H 33 H 20 Blood Pressure 159/77 H 168/77 H Pulse Oximetry 99 98 99 01/04/22 19:00 01/04/22 19:30 01/04/22 19:31 Temperature Pulse Rate 91 H 94 H 97 H Respiratory Rate 28 H 26 H 26 H Blood Pressure 181/75 H 182/79 H Pulse Oximetry 97 99 96 01/04/22 20:00 01/04/22 20:01 01/04/22 20:30 Temperature Pulse Rate 92 H 93 H 104 H Respiratory Rate 31 H 33 H 33 H Blood Pressure 158/89 H Pulse Oximetry 98 99 99 01/04/22 20:31 01/04/22 21:00 01/04/22 21:01 Temperature Pulse Rate 103 H 95 H 97 H Respiratory Rate 23 23 Blood Pressure 199/99 H 182/87 H Pulse Oximetry 98 99 99 01/04/22 21:30 01/04/22 21:31 01/04/22 22:00 Temperature Pulse Rate 97 H 98 H 90 Respiratory Rate Blood Pressure 198/91 H Pulse Oximetry 98 98 98 01/04/22 22:01 01/04/22 22:30 01/04/22 23:00 Temperature Pulse Rate 94 H 85 92 H Respiratory Rate 22 Blood Pressure 158/81 H 184/85 H Pulse Oximetry 97 98 99 01/04/22 23:01 01/04/22 23:30 01/04/22 23:31 Temperature Pulse Rate 92 H 79 81 Respiratory Rate 26 H 25 H Blood Pressure 191/91 H 177/80 H Pulse Oximetry 100 98 97 01/05/22 00:00 01/05/22 00:30 01/05/22 01:00 Temperature Pulse Rate 90 92 H 89 Respiratory Rate 24 24 15 Blood Pressure 138/84 165/77 H Pulse Oximetry 99 99 99 MDM - Chest Pain Lab Data Result diagrams: 01/04/22 18:48 01/04/22 18:48 Labs: Lab Results 01/04/22 01/04/22 01/04/22 Range/Units 18:48 18:48 18:48 WBC 6.5 (4.5-11.0) X10^3/uL RBC 4.31 (4.0-5.2) X10^6/uL Hgb 12.6 (12.0-16.0) g/dL Hct 37.9 (36-46) % MCV 87.9 (80-100) fL MCH 29.1 (26-34) PG MCHC 33.2 (30-36) % RDW 15.1 H (11.6-14.8) % Plt Count 169 (150-400) X10^3/uL Neut % (Auto) 72.4 (50-75) % Lymph % (Auto) 16.5 L (25-40) % [place] % (Auto) 7.2 (3-14) % Eos % (Auto) 2.5 (2-4) % Baso % (Auto) 1.4 (0-2) % Neut # (Auto) 4700 (2102-6821) /uL Lymph # (Auto) 1100 (6517-7953) /uL [place] # (Auto) 500 (0-900) /uL Eos # (Auto) 200 (0-450) /uL Baso # (Auto) 100 (0-100) /uL PT 11.6 (10.1-12.7) SECONDS INR 1.0 (0.9-1.3) APTT (26.4-36.2) SECONDS D-Dimer 540 H (<230) ng/mL Sodium 138 (137-145) mmol/L Potassium 4.1 (3.4-5.1) mmol/L Chloride 106 (98-107) mmol/L Carbon Dioxide 31 (22-32) mmol/L BUN 23 H (7-17) mg/dL Creatinine 0.90 (0.52-1.04) mg/dL Estimated GFR > 60 (>60) mL/min BUN/Creatinine Ratio 25.6 H (6-22) Glucose 130 H (80-110) mg/dL Calcium 9.5 (8.4-10.2) mg/dL Total Bilirubin 0.6 (0.2-1.3) mg/dL AST 28 (14-36) IU/L ALT 19 (<35) IU/L Alkaline Phosphatase 57 (38-126) U/L Total Creatine Kinase 28 L (30-135) U/L CK-MB (CK-2) TNP CK-MB (CK-2) Rel Index TNP Troponin I 0.395 H* (0.01-0.034) ng/mL NT-Pro-B Natriuret Pep 3930 H (<450) pg/mL Total Protein 5.9 L (6.3-8.2) g/dL Albumin 3.3 L (3.5-5.0) g/dL Globulin 2.6 (1.7-4.1) g/dL Albumin/Globulin Ratio 1.3 (1.0-2.8) Lipase 86 (23-300) U/L Procalcitonin 0.08 (<0.5) ng/mL SARS-CoV-2 (PCR) (Negative) 01/04/22 01/04/22 01/04/22 Range/Units 18:48 20:23 22:12 WBC (4.5-11.0) X10^3/uL RBC (4.0-5.2) X10^6/uL Hgb (12.0-16.0) g/dL Hct (36-46) % MCV (80-100) fL MCH (26-34) PG MCHC (30-36) % RDW (11.6-14.8) % Plt Count (150-400) X10^3/uL Neut % (Auto) (50-75) % Lymph % (Auto) (25-40) % [place] % (Auto) (3-14) % Eos % (Auto) (2-4) % Baso % (Auto) (0-2) % Neut # (Auto) (2927-0832) /uL Lymph # (Auto) (3418-4833) /uL [place] # (Auto) (0-900) /uL Eos # (Auto) (0-450) /uL Baso # (Auto) (0-100) /uL PT (10.1-12.7) SECONDS INR (0.9-1.3) APTT 29 D (26.4-36.2) SECONDS D-Dimer (<230) ng/mL Sodium (137-145) mmol/L Potassium (3.4-5.1) mmol/L Chloride (98-107) mmol/L Carbon Dioxide (22-32) mmol/L BUN (7-17) mg/dL Creatinine (0.52-1.04) mg/dL Estimated GFR (>60) mL/min BUN/Creatinine Ratio (6-22) Glucose (80-110) mg/dL Calcium (8.4-10.2) mg/dL Total Bilirubin (0.2-1.3) mg/dL AST (14-36) IU/L ALT (<35) IU/L Alkaline Phosphatase (38-126) U/L Total Creatine Kinase (30-135) U/L CK-MB (CK-2) CK-MB (CK-2) Rel Index Troponin I 0.393 H* (0.01-0.034) ng/mL NT-Pro-B Natriuret Pep (<450) pg/mL Total Protein (6.3-8.2) g/dL Albumin (3.5-5.0) g/dL Globulin (1.7-4.1) g/dL Albumin/Globulin Ratio (1.0-2.8) Lipase (23-300) U/L Procalcitonin (<0.5) ng/mL SARS-CoV-2 (PCR) Negative (Negative) Critical Care Time Critical Care Time Critical Care Time: Yes Total Critical Care Time: 35 Attestation: The high probability of a clinically significant, sudden or life threatening deterioration of the [CV] system(s) required my full and direct attention, intervention and personal management. The aggregate critical care time was [35] minutes. This time is in addition to time spent performing reported procedures but includes the following: [x] Data Review and interpretation [x] Patient assessment and monitoring of vital signs [xx] Documentation [x] Medication orders and management Discharge Plan Departure Patient Disposition: [facility] Clinical Impression: Acute non-ST elevation myocardial infarction (NSTEMI) Prescriptions: No Action aspirin 81 MG tablet,delayed release (DR/EC) 81 mg PO QDAY Qty: 0 0RF lisinopril 40 mg Tablet 40 mg PO DAILY 0RF atorvastatin [Lipitor] 20 mg Tablet 40 mg PO BEDTIME Qty: 180 0RF Label Comments: patient states she forgets to take levothyroxine 75 mcg tablet 75 mcg PO DAILY 0RF albuterol sulfate 90 mcg/actuation HFA aerosol inhaler 2 puff Inhalation Q4H PRN (Reason: Shortness Of Breath) 0RF fluticasone propion-salmeterol [Advair Diskus] 250-50 mcg/dose Blister With Device 1 inh INHALATION BID 0RF Label Comments: patient states on Advair. no record in RX processes. Also states unsure of when and how often she is supposed to use various inhalers. omega 4-uoa-fej-fish oil [Fish Oil] 1,000 mg (120 mg-180 mg) Capsule 1,000 mg PO DAILY 0RF nitroglycerin [Nitrostat] 0.4 mg Tablet, Sublingual 0.4 mg SUBLINGUAL Q5-15M PRN (Reason: Chest Pain) 0RF fluticasone propionate [Flonase Allergy Relief] 50 mcg/actuation [place],Suspension 1 spray Intranasal BID PRN (Reason: Allergy Symptoms) 0RF vitamin E 400 unit Capsule 400 unit PO DAILY 0RF multivitamin Tablet,Chewable 1 tab PO DAILY 0RF ipratropium-albuterol 0.5 mg-3 mg(2.5 mg base)/3 mL solution for nebulization 3 ml INHALATION Q6-8H PRN (Reason: shortness of breath or wheezing) Qty: 90 0RF clopidogrel 75 mg Tablet 75 mg PO DAILY 90 Days Qty: 90 4RF potassium chloride 20 mEq tablet extended release 20 meq PO DAILY Qty: 7 0RF diltiazem HCl [DILT-XR] 240 mg Capsule,Ext.Rel 24h Degradable 240 mg PO DAILY 0RF azithromycin 250 mg tablet 250 mg PO DAILY Qty: 4 0RF furosemide [Lasix] 20 mg tablet 20 mg PO DAILY Qty: 30 0RF Referrals: Allie Fleming MD [Primary Care Provider] -
[2022-01-04 19:16] LABS: Add Manual Diff / Slide Review NO; Basophils Absolute Auto 100 /uL (0-100); Basophils Percent Auto 1.4 % (0-2); Eosinophils Absolute Auto 200 /uL (0-450); Eosinophils Percent Auto 2.5 % (2-4); Hematocrit 37.9 % (36-46); Hemoglobin 12.6 g/dL (12.0-16.0); Lymphocytes Absolute Auto 1100 /uL (1100-4500); Lymphocytes Percent Auto 16.5 % (25-40); Mean Corpuscular HGB Conc 33.2 % (30-36); Mean Corpuscular Hemoglobin 29.1 PG (26-34); Mean Corpuscular Volume 87.9 fL (80-100); Monocytes Absolute Auto 500 /uL (0-900); Monocytes Percent Auto 7.2 % (3-14); Neutrophils Absolute Auto 4700 /uL (1500-7000); Neutrophils Percent Auto 72.4 % (50-75); Platelet Count 169 X10^3/uL (150-400); Red Blood Cell Count 4.31 X10^6/uL (4.0-5.2); Red Cell Distribution Width 15.1 % (11.6-14.8); White Blood Cell Count 6.5 X10^3/uL (4.5-11.0)
[2022-01-04 19:22] LABS: Prothrombin Time 11.6 SECONDS (10.1-12.7)
[2022-01-04 19:25] LABS: D Dimer 540 ng/mL (<230)
[2022-01-04 19:28] LABS: Alanine Aminotransferase 19 IU/L (<35); Albumin 3.3 g/dL (3.5-5.0); Albumin Globulin Ratio 1.3 (1.0-2.8); Alkaline Phosphatase 57 U/L (38-126); Aspartate Aminotransferase 28 IU/L (14-36); BUN Creatinine Ratio 25.6 (6-22); Bilirubin Total 0.6 mg/dL (0.2-1.3); Blood Urea Nitrogen 23 mg/dL (7-17); Calcium 9.5 mg/dL (8.4-10.2); Carbon Dioxide 31 mmol/L (22-32); Chloride 106 mmol/L (98-107); Creatine Kinase 28 U/L (30-135); Estimated Glomerular Filt Rate > 60 mL/min (>60); Globulin 2.6 g/dL (1.7-4.1); Glucose 130 mg/dL (80-110); HEMOLYSIS < 15 (0-50); Lipase 86 U/L (23-300); Potassium 4.1 mmol/L (3.4-5.1); Sodium 138 mmol/L (137-145); Total Protein 5.9 g/dL (6.3-8.2)
[2022-01-04 19:40] LABS: NT-proBNP (BNP-Adult 18+) 3930 pg/mL (<450)
[2022-01-04 19:45] LABS: Procalcitonin 0.08 ng/mL (<0.5)
[2022-01-04 20:08] LABS: Troponin I 0.395 ng/mL (0.01-0.034)
[2022-01-04 20:33] LABS: PTT Partial Thromboplastin Tim 29 SECONDS (26.4-36.2)
[2022-01-04] MEDS: HEPARIN DRIP 25,000 UNIT/500 ML IV.SOLN 12.954 UNIT IV (20:34)
[2022-01-04] MEDS: HEPARIN 5,000 UNIT/ML VIAL 4000 UNIT IV (20:35)
[2022-01-04 21:09] LABS: COVID19 -Nasal RAPID Negative (Negative)
[2022-01-04 22:50] LABS: Troponin I 0.393 ng/mL (0.01-0.034)
[2022-01-04] MEDS: ATORVASTATIN 20 MG TABLET 40 MG PO (22:53)
[2022-01-05] VITALS: PULSE 90; RESP 24; O2SAT 99
[2022-01-05 00:30] VITALS: BP 138/84; PULSE 92; RESP 24; O2SAT 99
[2022-01-05 01:00] VITALS: BP 165/77; PULSE 89; RESP 15; O2SAT 99
--- NOTE | 2022-01-05 01:30 | PC.NURSE ---
Patient left with heparin infusing.
== END 2022-01-05 01:34 | disposition short-term general hospital (02) ==
PROVIDERS: Emergency Provider Emergency Medicine; Family Provider Internal Medicine; PCP Internal Medicine
DX: I21.3 ST elevation (STEMI) myocardial infarction of unspecified site (principal); Z20.822 Contact with and (suspected) exposure to COVID-19
CPT/HCPCS: 36415; 71045; 80053; 82550; 83690; 83880; 84145; 84484; 85025; 85379; 85610; 85730; 87635; 93005; 96365; 96366; 99285; C9803; J1644

== ENCOUNTER 2022-03-24 08:35 | Emergency (ER) | payer OTHER, SELFPAY ==
[2021-12-22 01:28] VITALS: BMI 25.3
[2022-03-24] VITALS (12 sets, daily range): BP systolic 143–180; BP diastolic 65–106; PULSE 63–76; RESP 19–36; TEMP 36.6; O2SAT 96–100; BMI 23.4
--- NOTE | 2022-03-24 08:44 | DI.RAD.S_ITS ---
PROCEDURE: XR CHEST 1V INDICATIONS: chest pain TECHNIQUE: One view of the chest was acquired. COMPARISON: [facility], CR, XR CHEST 1V, 01/04/2022, 18:56. FINDINGS: Surgical changes and devices: Remote CABG, extravascular wires Lungs and pleura: Lungs are clear. No pleural effusions or pneumothorax. Mediastinum: Mediastinal contours appear normal. Cardiomegaly, unchanged Bones and chest wall: No suspicious bony lesions. Overlying soft tissues appear unremarkable. IMPRESSION: No evidence acute pulmonary process. Dictated by: Casper Ferraro M.D. on 03/24/2022 at 8:20 Approved by: Casper Ferraro M.D. on 03/24/2022 at 8:21
[2022-03-24 08:58] LABS: Add Manual Diff / Slide Review NO; Basophils Absolute Auto 100 /uL (0-100); Basophils Percent Auto 0.7 % (0-2); Eosinophils Absolute Auto 800 /uL (0-450); Eosinophils Percent Auto 8.8 % (2-4); Hematocrit 39.8 % (36-46); Hemoglobin 13.5 g/dL (12.0-16.0); Lymphocytes Absolute Auto 1500 /uL (1100-4500); Lymphocytes Percent Auto 16.6 % (25-40); Mean Corpuscular HGB Conc 33.9 % (30-36); Mean Corpuscular Hemoglobin 28.5 PG (26-34); Mean Corpuscular Volume 84.2 fL (80-100); Monocytes Absolute Auto 700 /uL (0-900); Monocytes Percent Auto 7.7 % (3-14); Neutrophils Absolute Auto 6000 /uL (1500-7000); Neutrophils Percent Auto 66.2 % (50-75); Platelet Count 221 X10^3/uL (150-400); Red Blood Cell Count 4.73 X10^6/uL (4.0-5.2); Red Cell Distribution Width 13.8 % (11.6-14.8); White Blood Cell Count 9.1 X10^3/uL (4.5-11.0)
[2022-03-24 09:05] LABS: Alanine Aminotransferase 16 IU/L (<35); Albumin Globulin Ratio 1.6 (1.0-2.8); Alkaline Phosphatase 79 U/L (38-126); Aspartate Aminotransferase 24 IU/L (14-36); BUN Creatinine Ratio 24.1 (6-22); Bilirubin Total 0.8 mg/dL (0.2-1.3); Blood Urea Nitrogen 21 mg/dL (7-17); Calcium 9.8 mg/dL (8.4-10.2); Carbon Dioxide 32 mmol/L (22-32); Chloride 102 mmol/L (98-107); Creatine Kinase 25 U/L (30-135); Estimated Glomerular Filt Rate > 60 mL/min (>60); Globulin 2.5 g/dL (1.7-4.1); Glucose 108 mg/dL (80-110); HEMOLYSIS < 15 (0-50); Lipase 80 U/L (23-300); Magnesium 1.9 mg/dL (1.6-2.3); Potassium 4.1 mmol/L (3.4-5.1); Sodium 138 mmol/L (137-145); Total Protein 6.5 g/dL (6.3-8.2)
[2022-03-24 09:16] LABS: Troponin I 0.029 ng/mL (0.01-0.034)
--- NOTE | 2022-03-24 09:27 | ED.CHESTPAIN ---
HPI - Chest Pain General Chief Complaint: Chest Pain Stated Complaint: Chest pain Time Seen by Provider: 03/24/22 08:48 Source: patient Mode of arrival: Family Vehicle Limitations: no limitations History of Present Illness HPI narrative: Patient is 86-year-old female with history coronary artery disease, CABG, multiple stents, CHF, COPD on 2 L of home oxygen presenting today with chest discomfort and shortness of breath. She says she went to a walk-in clinic a while ago they gave her 1 dose of prednisone which she said did not help. She feels like her cough seems to be getting worse. She does not have chest discomfort but more worried about cough and the shortness of breath. She isn't using any more oxygen than normal. She denies fever or chills. She did take a Lasix this morning which may help her breathing is hard to tell right now. No palpitations. She recently had NSTEMI 01/04/2022 at that time she was transferred to [facility] Related Data Home Medications Medication Instructions Recorded Confirmed aspirin 81 mg tablet,delayed 81 mg PO QDAY ##0 07/11/17 12/22/21 release lisinopril 40 mg tablet 40 mg PO DAILY 04/19/18 12/22/21 albuterol sulfate 90 mcg/actuation 2 puff inhalation Q4H PRN 07/07/18 12/22/21 aerosol inhaler Shortness Of Breath fluticasone 250 mcg-salmeterol 50 1 inh inhalation BID 07/07/18 12/22/21 mcg/dose blistr powdr for inhalation (Advair Diskus) fluticasone propionate 50 1 spray intranasal BID PRN Allergy 07/07/18 12/22/21 mcg/actuation nasal Symptoms spray,suspension (Flonase Allergy Relief) levothyroxine 75 mcg tablet 75 mcg PO DAILY 07/07/18 12/22/21 multivitamin 1 tab PO DAILY 07/07/18 12/22/21 nitroglycerin 0.4 mg sublingual 0.4 mg sublingual Q5-15M PRN Chest 07/07/18 12/22/21 tablet (Nitrostat) Pain omega 3-hml-gps-fish oil 1,000 mg 1,000 mg PO DAILY 07/07/18 12/22/21 (120 mg-180 mg) capsule (Fish Oil) vitamin E 400 unit capsule 400 unit PO DAILY 07/07/18 12/22/21 diltiazem HCl 240 mg 240 mg PO DAILY 12/22/21 12/22/21 capsule,extended release 24 hr, controlled (DILT-XR) Previous Rx's Medication Instructions Recorded atorvastatin 20 mg tablet (Lipitor) 40 mg PO BEDTIME #180 tabs 04/20/18 ipratropium 0.5 mg-albuterol 3 mg 3 ml inhalation Q6-8H PRN 11/04/18 (2.5 mg base)/3 mL nebulization shortness of breath or wheezing soln #90 mL clopidogrel 75 mg tablet 75 mg PO DAILY 90 days #90 tabs 09/28/21 potassium chloride 20 mEq 20 meq PO DAILY #7 tabs 12/17/21 tablet,extended release azithromycin 250 mg tablet 250 mg PO DAILY #4 tabs 12/23/21 furosemide 20 mg tablet (Lasix) 20 mg PO DAILY #30 tabs 12/23/21 prednisone 20 mg tablet 20 mg PO DAILY #3 tabs 03/24/22 Allergies Allergy/AdvReac Type Severity Reaction Status Date / Time acarbose Allergy Intermediate Abdominal Verified 03/24/22 08:50 Pain amlodipine Allergy Intermediate Verified 03/24/22 08:50 chlorthalidone Allergy Intermediate Redness of Verified 03/24/22 08:50 Skin doxazosin [From Cardura] Allergy Intermediate Rash Verified 03/24/22 08:50 doxycycline Allergy Intermediate Rash Verified 03/24/22 08:50 gemfibrozil Allergy Intermediate Rash Verified 03/24/22 08:50 levofloxacin Allergy Intermediate Rash Verified 03/24/22 08:50 losartan Allergy Intermediate Rash Verified 03/24/22 08:50 metoprolol Allergy Intermediate Verified 03/24/22 08:50 montelukast [From Singulair] Allergy Intermediate Difficulty Verified 03/24/22 08:50 Breathing nifedipine Allergy Intermediate Chills Verified 03/24/22 08:50 Sulfa (Sulfonamide Allergy Intermediate rash Verified 03/24/22 08:50 Antibiotics) sulfamethoxazole Allergy Intermediate Rash Verified 03/24/22 08:50 [From Bactrim] trimethoprim [From Bactrim] Allergy Intermediate Rash Verified 03/24/22 08:50 budesonide [From Symbicort] Allergy Mild Anxiety Verified 03/24/22 08:50 carvedilol Allergy Mild Rash Verified 03/24/22 08:50 choline fenofibrate Allergy Mild Gastrointestinal Verified 03/24/22 08:50 [From Trilipix] Upset formoterol [From Symbicort] Allergy Mild Anxiety Verified 03/24/22 08:50 Review of Systems Review of Systems Narrative: GENERAL: Denies chills, fatigue, malaise, fever, sweats, travel HEENT: Denies sinus pain, ear pain, sore throat, difficulty swallowing, neck pain RESPIRATORY: Denies dyspnea, cough, wheezing, hemoptysis, sputum. CARDIOVASCULAR: See HPI GASTROINTESTINAL: Denies nausea, vomiting, abdominal pain, diarrhea, constipation, melena. : Denies dysuria, frequency, incontinence, hematuria, urinary retention, flank pain. MUSCULOSKELETAL: Denies weakness, joint pain, or bony pain SKIN: No rash, no erythema, no pruritus NEUROLOGIC: Denies weakness, dizziness, headache, numbness, change in speech, confusion PSYCHIATRIC: No concerning psychosocial issues. 12 point review of systems is negative except for those stated above and HPI Patient History Medical History (Updated 03/24/22 @ 11:41 by Rima Morris DO) Aneurysm of infrarenal abdominal aorta Bilateral carpal tunnel syndrome CAD (coronary artery disease) COPD (chronic obstructive pulmonary disease) with emphysema Elevated TSH HTN (hypertension) Hyperlipidemia Unstable angina Valvular heart disease Surgical History H/O hysterectomy with oophorectomy H/O three vessel coronary artery bypass Hx of heart artery stent Status post cholecystectomy Family History Father Lung cancer Mother COPD (chronic obstructive pulmonary disease) Social History household members: family and children Smoking Status: Former smoker alcohol intake: never Smoking Status: Former smoker tobacco type: cigarettes alcohol intake frequency: 0-2 drinks per day Substance Use Type: does not use Exam Initial Vital Signs Initial Vital Signs: Vital Signs Temperature 97.8 F 03/24/22 08:40 Pulse Rate 72 03/24/22 08:40 Respiratory Rate 24 03/24/22 08:40 Blood Pressure 164/77 H 03/24/22 08:40 Pulse Oximetry 100 03/24/22 08:40 Oxygen Delivery Method 03/24/22 08:40 Oxygen Flow Rate 2 03/24/22 08:40 GENERAL: Alert pleasant 86-year-old female HEENT: Head atraumatic,EOMI, pupils reactive, face symmetric, moist mucous membranes CARDIOVASCULAR: Regular rate and rhythm without murmurs, rubs or gallops. RESPIRATORY: Coarse breath sounds bilaterally respiratory distress ABDOMEN: Soft, nontender. Normoactive bowel sounds all 4 quadrants. No guarding or rebound. EXTREMITIES: Normal range of motion, no clubbing or edema. Neurovascularly intact NEUROLOGICAL: Alert and oriented x4. SKIN: Warm, dry, no laceration, no petechiae, no rashes or lesions. Course Orders Ordered: ED Orders 03/24/22 08:44 XR chest 1V Stat EKG-12 Lead Stat 03/24/22 08:45 Complete Blood Count AUTO DIFF Stat Comprehensive Metabolic Panel Stat Lipase Stat Magnesium Stat Troponin & CK Cardiac Panel Stat 03/24/22 09:36 BNP [NT-proBNP (BNP-Adult 18+)] Stat Procalcitonin Stat 03/24/22 10:45 Trop I [Troponin I] Stat Vital Signs Vital signs: Vital Signs - 8 hr 03/24/22 08:40 03/24/22 08:52 03/24/22 09:00 Temperature 97.8 F Pulse Rate 72 70 Respiratory Rate 24 36 H Blood Pressure 164/77 H 168/77 H Pulse Oximetry 100 98 Oxygen Delivery Method Nasal Cannula Nasal Cannula Oxygen Flow Rate 2 2 03/24/22 09:00 03/24/22 09:17 03/24/22 09:17 Temperature Pulse Rate 71 76 Respiratory Rate 27 H 29 H Blood Pressure 180/74 H Pulse Oximetry 97 99 Oxygen Delivery Method Oxygen Flow Rate 03/24/22 09:30 03/24/22 09:31 03/24/22 09:31 Temperature Pulse Rate 72 74 Respiratory Rate Blood Pressure 147/106 H Pulse Oximetry 99 99 Oxygen Delivery Method Oxygen Flow Rate 03/24/22 10:11 03/24/22 10:13 03/24/22 10:13 Temperature Pulse Rate 63 67 Respiratory Rate 24 Blood Pressure 163/72 H Pulse Oximetry 96 99 Oxygen Delivery Method Oxygen Flow Rate 03/24/22 10:30 03/24/22 11:00 Temperature Pulse Rate 64 74 Respiratory Rate 19 25 H Blood Pressure Pulse Oximetry 99 98 Oxygen Delivery Method Oxygen Flow Rate MDM - Chest Pain Lab Data Result diagrams: 03/24/22 08:45 03/24/22 08:45 Labs: Lab Results 03/24/22 03/24/22 03/24/22 Range/Units 08:45 08:45 09:36 WBC 9.1 (4.5-11.0) X10^3/uL RBC 4.73 (4.0-5.2) X10^6/uL Hgb 13.5 (12.0-16.0) g/dL Hct 39.8 (36-46) % MCV 84.2 (80-100) fL MCH 28.5 (26-34) PG MCHC 33.9 (30-36) % RDW 13.8 (11.6-14.8) % Plt Count 221 (150-400) X10^3/uL Neut % (Auto) 66.2 (50-75) % Lymph % (Auto) 16.6 L (25-40) % [place] % (Auto) 7.7 (3-14) % Eos % (Auto) 8.8 H (2-4) % Baso % (Auto) 0.7 (0-2) % Neut # (Auto) 6000 (0537-8187) /uL Lymph # (Auto) 1500 (6583-2797) /uL [place] # (Auto) 700 (0-900) /uL Eos # (Auto) 800 H (0-450) /uL Baso # (Auto) 100 (0-100) /uL Sodium 138 (137-145) mmol/L Potassium 4.1 (3.4-5.1) mmol/L Chloride 102 (98-107) mmol/L Carbon Dioxide 32 (22-32) mmol/L BUN 21 H (7-17) mg/dL Creatinine 0.87 (0.52-1.04) mg/dL Estimated GFR > 60 (>60) mL/min BUN/Creatinine Ratio 24.1 H (6-22) Glucose 108 (80-110) mg/dL Calcium 9.8 (8.4-10.2) mg/dL Magnesium 1.9 (1.6-2.3) mg/dL Total Bilirubin 0.8 (0.2-1.3) mg/dL AST 24 (14-36) IU/L ALT 16 (<35) IU/L Alkaline Phosphatase 79 (38-126) U/L Total Creatine Kinase 25 L (30-135) U/L CK-MB (CK-2) TNP CK-MB (CK-2) Rel Index TNP Troponin I 0.029 (0.01-0.034) ng/mL NT-Pro-B Natriuret Pep 1790 H (<450) pg/mL Total Protein 6.5 (6.3-8.2) g/dL Albumin 4.0 (3.5-5.0) g/dL Globulin 2.5 (1.7-4.1) g/dL Albumin/Globulin Ratio 1.6 (1.0-2.8) Lipase 80 (23-300) U/L Procalcitonin 0.08 (<0.5) ng/mL 03/24/22 Range/Units 10:45 WBC (4.5-11.0) X10^3/uL RBC (4.0-5.2) X10^6/uL Hgb (12.0-16.0) g/dL Hct (36-46) % MCV (80-100) fL MCH (26-34) PG MCHC (30-36) % RDW (11.6-14.8) % Plt Count (150-400) X10^3/uL Neut % (Auto) (50-75) % Lymph % (Auto) (25-40) % [place] % (Auto) (3-14) % Eos % (Auto) (2-4) % Baso % (Auto) (0-2) % Neut # (Auto) (8106-5632) /uL Lymph # (Auto) (0522-8309) /uL [place] # (Auto) (0-900) /uL Eos # (Auto) (0-450) /uL Baso # (Auto) (0-100) /uL Sodium (137-145) mmol/L Potassium (3.4-5.1) mmol/L Chloride (98-107) mmol/L Carbon Dioxide (22-32) mmol/L BUN (7-17) mg/dL Creatinine (0.52-1.04) mg/dL Estimated GFR (>60) mL/min BUN/Creatinine Ratio (6-22) Glucose (80-110) mg/dL Calcium (8.4-10.2) mg/dL Magnesium (1.6-2.3) mg/dL Total Bilirubin (0.2-1.3) mg/dL AST (14-36) IU/L ALT (<35) IU/L Alkaline Phosphatase (38-126) U/L Total Creatine Kinase (30-135) U/L CK-MB (CK-2) CK-MB (CK-2) Rel Index Troponin I 0.021 (0.01-0.034) ng/mL NT-Pro-B Natriuret Pep (<450) pg/mL Total Protein (6.3-8.2) g/dL Albumin (3.5-5.0) g/dL Globulin (1.7-4.1) g/dL Albumin/Globulin Ratio (1.0-2.8) Lipase (23-300) U/L Procalcitonin (<0.5) ng/mL Imaging Data Chest x-ray: Radiologist's Impression: XRay Report Signed Patient: Lindsay Aguilar MR#: [id number] : 1935 Acct:[id number] Age/Sex: 86 / F Date of Service: 03/24/22 Loc: ED Accession Number: [id number] ?? Procedure: XR chest 1V Ordering Provider: Rima Morris D.O. PROCEDURE:? XR CHEST 1V ? INDICATIONS:? chest pain ? TECHNIQUE:? One view of the chest was acquired.? ? COMPARISON:? [facility], CR, XR CHEST 1V, 01/04/2022, 18:56. ? FINDINGS:? ? Surgical changes and devices:? Remote CABG, extravascular wires ? Lungs and pleura:? Lungs are clear.? No pleural effusions or pneumothorax.? ? Mediastinum:? Mediastinal contours appear normal.? Cardiomegaly, unchanged ? Bones and chest wall:? No suspicious bony lesions.? Overlying soft tissues appear unremarkable.? ? IMPRESSION:? No evidence acute pulmonary process. ? ? Dictated by: Casper Ferraro M.D. on 03/24/2022 at 8:20 ? ? ECG Data Interpretation: Normal sinus rhythm rate 73 MO interval 184 QRS 162 of PVC noted Q-waves noted lead 3, similar to previous EKG EKG 2. Sinus rhythm rate 68 similar to previous EKG no changes MDM Narrative Medical decision making narrative: Patient's biggest complaint seems to be cough. She has no leukocytosis chest x-ray is negative. Procalcitonin is negative does not require antibiotics at this time. BNP is also lower than what has been she continues to take Lasix. Probably more of a COPD like exacerbation. Will give for a couple days prednisone. Discharge Plan Departure Patient Disposition: Home Clinical Impression: Acute exacerbation of chronic obstructive pulmonary disease (COPD) Instructions: Chronic Obstructive Pulmonary Disease Activity Restrictions/Additional Instructions: *You have been diagnosed with COPD *What to do: At this time blood work and x-ray are overall reassuring. Her cough clear may not be related to COPD. Will try of couple days of prednisone. *Continue to take medications as directed Prednisone 20 mg once a day for 3 days--> SENT TO [facility] *Follow up with your primary care provider in 2-3 days or call [phone] *Return to ER if you should have increasing cough shortness of breath chest pain or any new, worsening or concerning symptoms Prescriptions: New prednisone 20 mg tablet 20 mg PO DAILY Qty: 3 0RF No Action aspirin 81 MG tablet,delayed release (DR/EC) 81 mg PO QDAY Qty: 0 lisinopril 40 mg Tablet 40 mg PO DAILY atorvastatin [Lipitor] 20 mg Tablet 40 mg PO BEDTIME Qty: 180 0RF Label Comments: patient states she forgets to take levothyroxine 75 mcg tablet 75 mcg PO DAILY albuterol sulfate 90 mcg/actuation HFA aerosol inhaler 2 puff Inhalation Q4H PRN (Reason: Shortness Of Breath) fluticasone propion-salmeterol [Advair Diskus] 250-50 mcg/dose Blister With Device 1 inh INHALATION BID Label Comments: patient states on Advair. no record in RX processes. Also states unsure of when and how often she is supposed to use various inhalers. omega 5-xcm-ipa-fish oil [Fish Oil] 1,000 mg (120 mg-180 mg) Capsule 1,000 mg PO DAILY nitroglycerin [Nitrostat] 0.4 mg Tablet, Sublingual 0.4 mg SUBLINGUAL Q5-15M PRN (Reason: Chest Pain) fluticasone propionate [Flonase Allergy Relief] 50 mcg/actuation [place],Suspension 1 spray Intranasal BID PRN (Reason: Allergy Symptoms) vitamin E 400 unit Capsule 400 unit PO DAILY multivitamin Tablet,Chewable 1 tab PO DAILY ipratropium-albuterol 0.5 mg-3 mg(2.5 mg base)/3 mL solution for nebulization 3 ml INHALATION Q6-8H PRN (Reason: shortness of breath or wheezing) Qty: 90 0RF clopidogrel 75 mg Tablet 75 mg PO DAILY 90 Days Qty: 90 4RF potassium chloride 20 mEq tablet extended release 20 meq PO DAILY Qty: 7 0RF diltiazem HCl [DILT-XR] 240 mg Capsule,Ext.Rel 24h Degradable 240 mg PO DAILY azithromycin 250 mg tablet 250 mg PO DAILY Qty: 4 0RF furosemide [Lasix] 20 mg tablet 20 mg PO DAILY Qty: 30 0RF Referrals: Allie Fleming MD [Primary Care Provider] - Visit Report Forms: Patient Portal/API
[2022-03-24 10:22] LABS: NT-proBNP (BNP-Adult 18+) 1790 pg/mL (<450)
[2022-03-24 10:41] LABS: Procalcitonin 0.08 ng/mL (<0.5)
[2022-03-24 11:12] LABS: Troponin I 0.021 ng/mL (0.01-0.034)
== END 2022-03-24 12:00 | disposition home or self-care (01) ==
PROVIDERS: Emergency Provider Emergency Medicine; Family Provider Internal Medicine; PCP Internal Medicine
DX: J44.1 Chronic obstructive pulmonary disease with (acute) exacerbation (principal); R07.9 Chest pain, unspecified
CPT/HCPCS: 36415; 71045; 80053; 82550; 83690; 83735; 83880; 84145; 84484; 85025; 93005; 99284; 99285

== ENCOUNTER 2022-04-14 11:33 | Emergency (ER) | payer OTHER, SELFPAY ==
[2021-12-22 01:28] VITALS: BMI 25.3
[2022-04-14] VITALS (16 sets, daily range): BP systolic 134–162; BP diastolic 58–70; PULSE 68–87; RESP 19–46; TEMP 36.6; O2SAT 94–100; BMI 23.4
--- NOTE | 2022-04-14 11:47 | ED.WEAKNESS ---
HPI - Weakness General Chief complaint: Weakness Stated complaint: Fatigue, weakness, chestpain and known UTI Time Seen by Provider: 04/14/22 11:42 History of Present Illness HPI Narrative: 86-year-old female former smoker with history of COPD (on home oxycen) and coronary artery disease, hypertension, hyperlipidemia presents by EMS for evaluation of ongoing urinary symptoms as well as anterior chest pain. She states that she is been having dysuria, frequency and urgency for about the last week but denies any back pain, nausea, vomiting or fever. Additionally, she states that every time she urinates she develops pain that goes from her left shoulder across her anterior chest to her right shoulder and goes away as soon as she is done urinating. She denies any radiation to her back. She denies any recent travel, injury, history of cancer or blood clot. She denies any change in medications or diet. She denies any history of the same. She had been seen and evaluated yesterday at a walk-in clinic and diagnosed with a urinary tract infection and is now had 3 doses of nitrofurantoin. Related Data Home Medications Medication Instructions Recorded Confirmed aspirin 81 mg tablet,delayed 81 mg PO QDAY ##0 07/11/17 12/22/21 release lisinopril 40 mg tablet 40 mg PO DAILY 04/19/18 12/22/21 albuterol sulfate 90 mcg/actuation 2 puff inhalation Q4H PRN 07/07/18 12/22/21 aerosol inhaler Shortness Of Breath fluticasone 250 mcg-salmeterol 50 1 inh inhalation BID 07/07/18 12/22/21 mcg/dose blistr powdr for inhalation (Advair Diskus) fluticasone propionate 50 1 spray intranasal BID PRN Allergy 07/07/18 12/22/21 mcg/actuation nasal Symptoms spray,suspension (Flonase Allergy Relief) levothyroxine 75 mcg tablet 75 mcg PO DAILY 07/07/18 12/22/21 multivitamin 1 tab PO DAILY 07/07/18 12/22/21 nitroglycerin 0.4 mg sublingual 0.4 mg sublingual Q5-15M PRN Chest 07/07/18 12/22/21 tablet (Nitrostat) Pain omega 8-nie-zzy-fish oil 1,000 mg 1,000 mg PO DAILY 07/07/18 12/22/21 (120 mg-180 mg) capsule (Fish Oil) vitamin E 268 mg (400 unit) capsule 400 unit PO DAILY 07/07/18 12/22/21 diltiazem HCl 240 mg 240 mg PO DAILY 12/22/21 12/22/21 capsule,extended release 24 hr, controlled (DILT-XR) Previous Rx's Medication Instructions Recorded atorvastatin 20 mg tablet (Lipitor) 40 mg PO BEDTIME #180 tabs 04/20/18 ipratropium 0.5 mg-albuterol 3 mg 3 ml inhalation Q6-8H PRN 11/04/18 (2.5 mg base)/3 mL nebulization shortness of breath or wheezing soln #90 mL clopidogrel 75 mg tablet 75 mg PO DAILY 90 days #90 tabs 09/28/21 potassium chloride 20 mEq 20 meq PO DAILY #7 tabs 12/17/21 tablet,extended release azithromycin 250 mg tablet 250 mg PO DAILY #4 tabs 12/23/21 furosemide 20 mg tablet (Lasix) 20 mg PO DAILY #30 tabs 12/23/21 prednisone 20 mg tablet 20 mg PO DAILY #3 tabs 03/24/22 cephalexin 500 mg capsule 500 mg PO BID #14 caps 04/14/22 Allergies Allergy/AdvReac Type Severity Reaction Status Date / Time acarbose Allergy Intermediate Abdominal Verified 03/24/22 08:50 Pain amlodipine Allergy Intermediate Verified 03/24/22 08:50 chlorthalidone Allergy Intermediate Redness of Verified 03/24/22 08:50 Skin doxazosin [From Cardura] Allergy Intermediate Rash Verified 03/24/22 08:50 doxycycline Allergy Intermediate Rash Verified 03/24/22 08:50 gemfibrozil Allergy Intermediate Rash Verified 03/24/22 08:50 levofloxacin Allergy Intermediate Rash Verified 03/24/22 08:50 losartan Allergy Intermediate Rash Verified 03/24/22 08:50 metoprolol Allergy Intermediate Verified 03/24/22 08:50 montelukast [From Singulair] Allergy Intermediate Difficulty Verified 03/24/22 08:50 Breathing nifedipine Allergy Intermediate Chills Verified 03/24/22 08:50 Sulfa (Sulfonamide Allergy Intermediate rash Verified 03/24/22 08:50 Antibiotics) sulfamethoxazole Allergy Intermediate Rash Verified 03/24/22 08:50 [From Bactrim] trimethoprim [From Bactrim] Allergy Intermediate Rash Verified 03/24/22 08:50 budesonide [From Symbicort] Allergy Mild Anxiety Verified 03/24/22 08:50 carvedilol Allergy Mild Rash Verified 03/24/22 08:50 choline fenofibrate Allergy Mild Gastrointestinal Verified 03/24/22 08:50 [From Trilipix] Upset formoterol [From Symbicort] Allergy Mild Anxiety Verified 03/24/22 08:50 Review of Systems Review of Systems Narrative: GENERAL: Denies chills, fatigue, malaise, fever, sweats. HEENT: Denies sinus pain, ear pain, sore throat, difficulty swallowing, dizziness. RESPIRATORY: Denies dyspnea, cough, wheezing, hemoptysis, sputum. CARDIOVASCULAR: See HPI GASTROINTESTINAL: Denies nausea, vomiting, abdominal pain, diarrhea, constipation, melena. : See HPI MUSCULOSKELETAL: denies weakness, joint pain, or bony pain SKIN: Denies rash, skin lesions, or other NEUROLOGIC: Denies weakness, headache, numbness, change in speech, confusion, seizures, incoordination. PSYCHIATRIC: No concerning psychosocial issues. 12 point review of systems is negative except for those stated above Patient History Medical History (Updated 04/14/22 @ 16:11 by Leland Lal DO) Aneurysm of infrarenal abdominal aorta Bilateral carpal tunnel syndrome CAD (coronary artery disease) COPD (chronic obstructive pulmonary disease) with emphysema Elevated TSH HTN (hypertension) Hyperlipidemia Unstable angina Valvular heart disease Surgical History H/O hysterectomy with oophorectomy H/O three vessel coronary artery bypass Hx of heart artery stent Status post cholecystectomy Family History Father Lung cancer Mother COPD (chronic obstructive pulmonary disease) Social History household members: family and children Smoking Status: Former smoker alcohol intake: never Smoking Status: Former smoker tobacco type: cigarettes alcohol intake frequency: 0-2 drinks per day Substance Use Type: does not use Exam Narrative Exam Narrative: GENERAL: [86] year old patient appears stated age. Well-developed patient, in mild distress. HEAD: Atraumatic. Normocephalic. EYES: Pupils equal round and reactive. Extraocular motions intact. No scleral icterus. No injection or drainage. ENT: Nose without bleeding, purulent drainage. Throat without erythema, tonsillar hypertrophy or exudate. Airway patent. NECK: Trachea midline. Non tender CARDIOVASCULAR: Regular rate and rhythm without murmurs, gallops, or rubs. RESPIRATORY: Decreased lung sounds bilaterally with prolonged expiratory phase GASTROINTESTINAL: Abdomen soft, non-tender, nondistended. EXTREMITIES: No edema or joint tenderness. BACK: Nontender without deformity or crepitance. No flank tenderness. NEURO: AOx3. SKIN: No rash or erythema of visible areas Initial Vital Signs Initial Vital Signs: Vital Signs Temperature 97.8 F 04/14/22 11:54 Pulse Rate 85 04/14/22 11:54 Respiratory Rate 19 04/14/22 11:54 Blood Pressure 157/70 H 04/14/22 11:54 Pulse Oximetry 94 04/14/22 11:54 Oxygen Delivery Method 04/14/22 11:54 Oxygen Flow Rate 2 04/14/22 11:54 Course Orders Ordered: Discontinued Medications Aspirin (Aspirin 81 Mg Chew Tab) 324 mg PO NOW ONE Stop: 04/14/22 11:56 Last Admin: 04/14/22 12:21 Dose: 324 mg Documented By: RB Cefazolin Sodium (Cephalexin 250 Mg Prepack) 1 bottle MISC SEEINSTR ONE Stop: 04/14/22 16:09 Last Admin: 04/14/22 16:19 Dose: 500 mg Documented By: RB Sodium Chloride (Normal Saline 0.9%) 1,000 mls @ 150 mls/hr IV CONT ROLANDA Last Infusion: 04/14/22 16:21 Dose: 0 mls/hr Documented By: Admin: 04/14/22 12:22 Dose: 150 mls/hr Documented By: RB Vital Signs Vital signs: Vital Signs - 8 hr 04/14/22 11:54 04/14/22 11:54 04/14/22 11:56 Temperature 97.8 F Pulse Rate 85 81 83 Respiratory Rate 19 20 19 Blood Pressure 157/70 H Pulse Oximetry 94 94 97 Oxygen Delivery Method Nasal Cannula Oxygen Flow Rate 2 04/14/22 11:56 04/14/22 12:00 04/14/22 12:24 Temperature Pulse Rate 82 83 Respiratory Rate 20 26 H Blood Pressure 157/70 H Pulse Oximetry 95 97 Oxygen Delivery Method Oxygen Flow Rate 04/14/22 12:24 04/14/22 12:30 04/14/22 13:00 Temperature Pulse Rate 85 87 Respiratory Rate 24 22 Blood Pressure 144/62 H Pulse Oximetry 98 100 Oxygen Delivery Method Oxygen Flow Rate 04/14/22 13:30 04/14/22 14:00 04/14/22 14:30 Temperature Pulse Rate 84 80 81 Respiratory Rate 20 19 19 Blood Pressure Pulse Oximetry 99 97 98 Oxygen Delivery Method Oxygen Flow Rate 04/14/22 15:00 Temperature Pulse Rate 84 Respiratory Rate 19 Blood Pressure Pulse Oximetry 98 Oxygen Delivery Method Oxygen Flow Rate MDM - Weakness Lab Data Result diagrams: 04/14/22 12:03 04/14/22 12:03 Labs: Lab Results 04/14/22 04/14/22 04/14/22 Range/Units 12:03 12:03 12:03 WBC 5.9 (4.5-11.0) X10^3/uL RBC 4.41 (4.0-5.2) X10^6/uL Hgb 12.7 (12.0-16.0) g/dL Hct 37.2 (36-46) % MCV 84.5 (80-100) fL MCH 28.7 (26-34) PG MCHC 34.0 (30-36) % RDW 14.0 (11.6-14.8) % Plt Count 173 (150-400) X10^3/uL Neut % (Auto) 78.3 H (50-75) % Lymph % (Auto) 9.1 L (25-40) % Surry % (Auto) 6.7 (3-14) % Eos % (Auto) 4.9 H (2-4) % Baso % (Auto) 1.0 (0-2) % Neut # (Auto) 4600 (6646-0031) /uL Lymph # (Auto) 500 L (7619-5232) /uL Surry # (Auto) 400 (0-900) /uL Eos # (Auto) 300 (0-450) /uL Baso # (Auto) 100 (0-100) /uL D-Dimer 2171 H (<500) ng/ml Sodium 138 (137-145) mmol/L Potassium 3.7 (3.4-5.1) mmol/L Chloride 101 (98-107) mmol/L Carbon Dioxide 32 (22-32) mmol/L BUN 15 (7-17) mg/dL Creatinine 0.92 (0.52-1.04) mg/dL Estimated GFR > 60 (>60) mL/min BUN/Creatinine Ratio 16.3 (6-22) Glucose 98 (80-110) mg/dL Calcium 9.6 (8.4-10.2) mg/dL Total Bilirubin 0.9 (0.2-1.3) mg/dL AST 27 (14-36) IU/L ALT 22 (<35) IU/L Alkaline Phosphatase 68 (38-126) U/L Total Creatine Kinase 28 L (30-135) U/L CK-MB (CK-2) TNP CK-MB (CK-2) Rel Index TNP Troponin I 0.020 (0.01-0.034) ng/mL NT-Pro-B Natriuret Pep (<450) pg/mL Total Protein 6.6 (6.3-8.2) g/dL Albumin 3.8 (3.5-5.0) g/dL Globulin 2.8 (1.7-4.1) g/dL Albumin/Globulin Ratio 1.4 (1.0-2.8) Lipase 74 (23-300) U/L Procalcitonin 0.08 (<0.5) ng/mL 04/14/22 04/14/22 Range/Units 12:03 15:17 WBC (4.5-11.0) X10^3/uL RBC (4.0-5.2) X10^6/uL Hgb (12.0-16.0) g/dL Hct (36-46) % MCV (80-100) fL MCH (26-34) PG MCHC (30-36) % RDW (11.6-14.8) % Plt Count (150-400) X10^3/uL Neut % (Auto) (50-75) % Lymph % (Auto) (25-40) % Surry % (Auto) (3-14) % Eos % (Auto) (2-4) % Baso % (Auto) (0-2) % Neut # (Auto) (9090-3747) /uL Lymph # (Auto) (8151-4210) /uL Surry # (Auto) (0-900) /uL Eos # (Auto) (0-450) /uL Baso # (Auto) (0-100) /uL D-Dimer (<500) ng/ml Sodium (137-145) mmol/L Potassium (3.4-5.1) mmol/L Chloride (98-107) mmol/L Carbon Dioxide (22-32) mmol/L BUN (7-17) mg/dL Creatinine (0.52-1.04) mg/dL Estimated GFR (>60) mL/min BUN/Creatinine Ratio (6-22) Glucose (80-110) mg/dL Calcium (8.4-10.2) mg/dL Total Bilirubin (0.2-1.3) mg/dL AST (14-36) IU/L ALT (<35) IU/L Alkaline Phosphatase (38-126) U/L Total Creatine Kinase 28 L (30-135) U/L CK-MB (CK-2) TNP CK-MB (CK-2) Rel Index TNP Troponin I 0.026 (0.01-0.034) ng/mL NT-Pro-B Natriuret Pep 996 H (<450) pg/mL Total Protein (6.3-8.2) g/dL Albumin (3.5-5.0) g/dL Globulin (1.7-4.1) g/dL Albumin/Globulin Ratio (1.0-2.8) Lipase (23-300) U/L Procalcitonin (<0.5) ng/mL Imaging Data CT scan - chest: Radiologist Impression: [place] [address] CT Scan Report Signed Patient: Lindsay Aguilar MR#: [id number] : 1935 Acct:[id number] Age/Sex: 86 / F Date of Service: 04/14/22 Loc: ED Accession Number: [id number] ?? Procedure: CT angio chest PE protocol Ordering Provider: Leland Lal D.O. PROCEDURE:? CT ANGIO CHEST PE PROTOCOL ? INDICATIONS:? chest pain, critical Dimer ? TECHNIQUE:? After the administration of intravenous contrast, 2 mm thick sections acquired from the pulmonary apices to the posterior costophrenic angles.? For radiation dose reduction, the following was used:? automated exposure control, adjustment of mA and/or kV according to patient size.? ? COMPARISON:? [facility], CT, CT ANGIO CHEST PE PROTOCOL, 12/21/2021, 22:35. ? FINDINGS:? Image quality:? Excellent.? ? Pulmonary arteries:? Pulmonary arteries are normal in size, and demonstrate no [id number] filling defects to suggest central pulmonary embolism.? ? Lungs and pleura:? Moderate bilateral bullous pulmonary emphysema present.? No focal infiltrate ? Mediastinum:? Heart size enlarged.? Coronary bypass graft present.? Dense coronary artery and aortic atherosclerotic vascular calcification.? No pericardial effusion.? No mediastinal or hilar adenopathy.? Thoracic aorta is normal in caliber and enhancement.? Esophagus is normal in caliber, without hiatal hernia.? ? Bones and chest wall:? No suspicious bony lesions.? Ribs and thoracic spine appear intact throughout.? Thyroid gland unremarkable.? Midline sternal wires present.? Abandoned epicardial pacer wires noted stable..? No axillary or supraclavicular adenopathy.? ? Abdomen:? Visualized upper abdominal solid organs appear normal in the early arterial phase of enhancement.? Cholecystectomy ? IMPRESSION:? ? No evidence of pulmonary embolism, aortic dissection or aneurysm. ? Moderate bullous pulmonary emphysema without focal infiltrate. ? Cardiomegaly, CABG and midline sternal wires ? Approved by: Misha Orellana M.D. on 04/14/2022 at 12:52? Discharge Plan Departure Patient Disposition: Home Clinical Impression: Atypical chest pain, Acute UTI Instructions: DI for Urinary Tract Infection (UTI), DI for Atypical Chest Pain Activity Restrictions/Additional Instructions: *You have been diagnosed with [atypical chest pain and urinary tract infection. As we discussed her history and physical exam are very reassuring. There is no evidence of heart attack, blood clot, pneumonia or other abnormal finding that would require a specific intervention] *What to do: *Please stop taking the Nitrofurantoin and begin the new antibiotic that we started tonight. Otherwise continue take her medications as previously prescribed [ x] New medication prescriptions sent to your pharmacy: [ [facility]] [ ] New medication written as a paper prescription [ ] No new medications given *Please follow up with your primary care provider in 2-3 days, call for an appointment. Let them know you were seen in the Emergency Department and that we ask that you be seen in follow up. We will electronically transmit a record of today's note if your PCP is in our system *If you do not have a primary care provider please contact the [facility] Resource line at [phone]. They will ask some questions about your medical history and help get you set up with a doctor in the community. *Return to Emergency Department if you should have any new, worsening or concerning symptoms, such as [fever greater than 101 F, shaking chills, worsening pain, persistent vomiting or other bothersome symptoms] Prescriptions: New cephalexin 500 mg capsule 500 mg PO BID Qty: 14 0RF No Action aspirin 81 MG tablet,delayed release (DR/EC) 81 mg PO QDAY Qty: 0 lisinopril 40 mg Tablet 40 mg PO DAILY atorvastatin [Lipitor] 20 mg Tablet 40 mg PO BEDTIME Qty: 180 0RF Label Comments: patient states she forgets to take levothyroxine 75 mcg tablet 75 mcg PO DAILY albuterol sulfate 90 mcg/actuation HFA aerosol inhaler 2 puff Inhalation Q4H PRN (Reason: Shortness Of Breath) fluticasone propion-salmeterol [Advair Diskus] 250-50 mcg/dose Blister With Device 1 inh INHALATION BID Label Comments: patient states on Advair. no record in RX processes. Also states unsure of when and how often she is supposed to use various inhalers. omega 0-njb-dfj-fish oil [Fish Oil] 1,000 mg (120 mg-180 mg) Capsule 1,000 mg PO DAILY nitroglycerin [Nitrostat] 0.4 mg Tablet, Sublingual 0.4 mg SUBLINGUAL Q5-15M PRN (Reason: Chest Pain) fluticasone propionate [Flonase Allergy Relief] 50 mcg/actuation [place],Suspension 1 spray Intranasal BID PRN (Reason: Allergy Symptoms) vitamin E 400 unit Capsule 400 unit PO DAILY multivitamin Tablet,Chewable 1 tab PO DAILY ipratropium-albuterol 0.5 mg-3 mg(2.5 mg base)/3 mL solution for nebulization 3 ml INHALATION Q6-8H PRN (Reason: shortness of breath or wheezing) Qty: 90 0RF clopidogrel 75 mg Tablet 75 mg PO DAILY 90 Days Qty: 90 4RF prednisone 20 mg tablet 20 mg PO DAILY Qty: 3 0RF potassium chloride 20 mEq tablet extended release 20 meq PO DAILY Qty: 7 0RF diltiazem HCl [DILT-XR] 240 mg Capsule,Ext.Rel 24h Degradable 240 mg PO DAILY azithromycin 250 mg tablet 250 mg PO DAILY Qty: 4 0RF furosemide [Lasix] 20 mg tablet 20 mg PO DAILY Qty: 30 0RF Referrals: Allie Fleming MD [Physician] - Visit Report Forms: Patient Portal/API
--- NOTE | 2022-04-14 11:55 | DI.RAD.S_ITS ---
PROCEDURE: XR CHEST 1V INDICATIONS: chest pain TECHNIQUE: One view of the chest was acquired. COMPARISON: [facility], CT, CT ANGIO CHEST PE PROTOCOL, 04/14/2022, 12:50. [facility], CR, XR CHEST 1V, 03/24/2022, 9:01. FINDINGS: Surgical changes and devices: Midline sternal wires noted Lungs and pleura: Diffuse chronic interstitial changes. Right lung and pleural space clear. Mediastinum: Mediastinal contours appear normal. Heart size is enlarged. Abandoned epicardial pacer wires unchanged. Atherosclerotic vascular calcification noted in the aortic arch. Bones and chest wall: Generalized decrease in osseous mineralization noted. IMPRESSION: Diffuse chronic interstitial changes without focal infiltrate Cardiomegaly without vascular congestion. Approved by: Misha Orellana M.D. on 04/14/2022 at 12:12
[2022-04-14 12:11] LABS: Add Manual Diff / Slide Review NO; Basophils Absolute Auto 100 /uL (0-100); Eosinophils Absolute Auto 300 /uL (0-450); Eosinophils Percent Auto 4.9 % (2-4); Hematocrit 37.2 % (36-46); Hemoglobin 12.7 g/dL (12.0-16.0); Lymphocytes Absolute Auto 500 /uL (1100-4500); Lymphocytes Percent Auto 9.1 % (25-40); Mean Corpuscular Hemoglobin 28.7 PG (26-34); Mean Corpuscular Volume 84.5 fL (80-100); Monocytes Absolute Auto 400 /uL (0-900); Monocytes Percent Auto 6.7 % (3-14); Neutrophils Absolute Auto 4600 /uL (1500-7000); Neutrophils Percent Auto 78.3 % (50-75); Platelet Count 173 X10^3/uL (150-400); Red Blood Cell Count 4.41 X10^6/uL (4.0-5.2); White Blood Cell Count 5.9 X10^3/uL (4.5-11.0)
[2022-04-14 12:20] LABS: D Dimer 2171 ng/ml (<500)
[2022-04-14] MEDS: ASPIRIN 81 MG CHEW TAB 324 MG PO (12:21)
[2022-04-14] MEDS: SODIUM CHLORIDE 0.9% 1,000 ML 150 ML IV (12:22)
[2022-04-14 12:29] LABS: Alanine Aminotransferase 22 IU/L (<35); Albumin 3.8 g/dL (3.5-5.0); Albumin Globulin Ratio 1.4 (1.0-2.8); Alkaline Phosphatase 68 U/L (38-126); Aspartate Aminotransferase 27 IU/L (14-36); BUN Creatinine Ratio 16.3 (6-22); Bilirubin Total 0.9 mg/dL (0.2-1.3); Blood Urea Nitrogen 15 mg/dL (7-17); Calcium 9.6 mg/dL (8.4-10.2); Carbon Dioxide 32 mmol/L (22-32); Chloride 101 mmol/L (98-107); Creatine Kinase 28 U/L (30-135); Estimated Glomerular Filt Rate > 60 mL/min (>60); Globulin 2.8 g/dL (1.7-4.1); Glucose 98 mg/dL (80-110); HEMOLYSIS < 15 (0-50); Lipase 74 U/L (23-300); Potassium 3.7 mmol/L (3.4-5.1); Sodium 138 mmol/L (137-145); Total Protein 6.6 g/dL (6.3-8.2)
--- NOTE | 2022-04-14 12:32 | DI.CT.S_ITS ---
PROCEDURE: CT ANGIO CHEST PE PROTOCOL INDICATIONS: chest pain, critical Dimer TECHNIQUE: After the administration of intravenous contrast, 2 mm thick sections acquired from the pulmonary apices to the posterior costophrenic angles. For radiation dose reduction, the following was used: automated exposure control, adjustment of mA and/or kV according to patient size. COMPARISON: [facility], CT, CT ANGIO CHEST PE PROTOCOL, 12/21/2021, 22:35. FINDINGS: Image quality: Excellent. Pulmonary arteries: Pulmonary arteries are normal in size, and demonstrate no [id number] filling defects to suggest central pulmonary embolism. Lungs and pleura: Moderate bilateral bullous pulmonary emphysema present. No focal infiltrate Mediastinum: Heart size enlarged. Coronary bypass graft present. Dense coronary artery and aortic atherosclerotic vascular calcification. No pericardial effusion. No mediastinal or hilar adenopathy. Thoracic aorta is normal in caliber and enhancement. Esophagus is normal in caliber, without hiatal hernia. Bones and chest wall: No suspicious bony lesions. Ribs and thoracic spine appear intact throughout. Thyroid gland unremarkable. Midline sternal wires present. Abandoned epicardial pacer wires noted stable.. No axillary or supraclavicular adenopathy. Abdomen: Visualized upper abdominal solid organs appear normal in the early arterial phase of enhancement. Cholecystectomy IMPRESSION: No evidence of pulmonary embolism, aortic dissection or aneurysm. Moderate bullous pulmonary emphysema without focal infiltrate. Cardiomegaly, CABG and midline sternal wires Approved by: Misha Orellana M.D. on 04/14/2022 at 12:52
[2022-04-14 12:38] LABS: NT-proBNP (BNP-Adult 18+) 996 pg/mL (<450)
[2022-04-14 12:45] LABS: Procalcitonin 0.08 ng/mL (<0.5)
[2022-04-14 15:34] LABS: Creatine Kinase 28 U/L (30-135)
[2022-04-14 15:47] LABS: Troponin I 0.026 ng/mL (0.01-0.034)
[2022-04-14] MEDS: cephALEXin 250 MG PREPACK 1 BOTTLE MISC (16:19)
== END 2022-04-14 17:13 | disposition home or self-care (01) ==
PROVIDERS: Emergency Provider Emergency Medicine
DX: R07.89 Other chest pain (principal); N39.0 Urinary tract infection, site not specified
CPT/HCPCS: 36415; 71045; 71275; 80053; 82550; 83690; 83880; 84145; 84484; 85025; 85379; 93005; 96360; 96361; 99284; Q9967

== ENCOUNTER 2022-05-03 08:35 | Emergency (ER) | payer OTHER, SELFPAY ==
[2021-12-22 01:28] VITALS: BMI 25.3
[2022-05-03] VITALS (43 sets, daily range): BP systolic 117–196; BP diastolic 53–162; PULSE 62–91; RESP 15–41; TEMP 36.5; O2SAT 91–99; BMI 23.0
--- NOTE | 2022-05-03 08:39 | DI.RAD.S_ITS ---
PROCEDURE: XR CHEST 1V INDICATIONS: chest pain TECHNIQUE: One view of the chest was acquired. COMPARISON: [facility], CR, XR CHEST 1V, 04/14/2022, 12:12. FINDINGS: Surgical changes and devices: Median sternotomy wires are present and appear intact. Surgical clips in right upper quadrant compatible with prior cholecystectomy. Lungs and pleura: Persistent chronic appearing mild diffuse interstitial prominence. No focal consolidation. No pleural effusion. No pneumothorax. Mediastinum: Mediastinal contours appear stable. Heart size is enlarged. Bones and chest wall: No suspicious bony lesions. Overlying soft tissues appear unremarkable. IMPRESSION: Cardiomegaly without evidence for acute cardiopulmonary abnormalities. Stable appearance of chronic diffuse interstitial prominence. No focal consolidation seen. Dictated by: Garrett Dan M.D. on 05/03/2022 at 9:18 Approved by: Garrett Dan M.D. on 05/03/2022 at 9:19
--- NOTE | 2022-05-03 08:40 | ED_ITS ---
HPI - Chest Pain <Josué Aguirre MD - Last Filed: 05/16/22 07:22> General Chief Complaint: Chest Pain Stated Complaint: chest pain Time Seen by Provider: 05/03/22 08:38 History of Present Illness HPI narrative: Patient brought in by ambulance from walk-in clinic for left-sided chest pain resolved with nitroglycerin given by the clinic. Aspirin 324 mg given by the clinic as well. Patient currently chest pain-free. Patient has history of triple bypass in 2006. She saw her pit hand at [facility] 3 weeks ago for evaluation/checkup. No recent stress test or echocardiogram. Has been doing well. No recent chest pain dyspnea nausea vomiting diarrhea. Has had ongoing dry cough. Is scheduled to see a spout liner for this problem. Patient tried to take her inhaler this morning with the chest discomfort but it did not resolve and she drove herself to a walk-in clinic. Patient in no distress at this time. EKG by EMS does show right bundle-branch block. Patient denies any nausea or sweating or dyspnea Related Data Home Medications Medication Instructions Recorded Confirmed aspirin 81 mg tablet,delayed 81 mg PO QDAY ##0 07/11/17 05/04/22 release albuterol sulfate 90 mcg/actuation 2 puff inhalation Q4H PRN 07/07/18 05/04/22 aerosol inhaler Shortness Of Breath fluticasone propionate 50 1 spray intranasal BID PRN Allergy 07/07/18 05/04/22 mcg/actuation nasal Symptoms spray,suspension (Flonase Allergy Relief) multivitamin 1 tab PO DAILY 07/07/18 05/04/22 nitroglycerin 0.4 mg sublingual 0.4 mg sublingual Q5-15M PRN Chest 07/07/18 05/04/22 tablet (Nitrostat) Pain omega 3-gff-bgs-fish oil 1,000 mg 1,000 mg PO DAILY 07/07/18 05/04/22 (120 mg-180 mg) capsule (Fish Oil) vitamin E 268 mg (400 unit) capsule 400 unit PO DAILY 07/07/18 05/04/22 atorvastatin 20 mg tablet (Lipitor) 40 mg PO QAM 05/04/22 05/04/22 diltiazem HCl 120 mg 120 mg PO QAM 05/04/22 05/04/22 capsule,extended release 24 hr (Cartia XT) furosemide 40 mg tablet 40 mg PO QAM 05/04/22 05/04/22 isosorbide mononitrate 120 mg 120 mg PO QAM 05/04/22 05/04/22 tablet,extended release 24 hr levothyroxine 88 mcg tablet 88 mcg PO QAM 05/04/22 05/04/22 lisinopril 40 mg tablet 40 mg PO QAM 05/04/22 05/04/22 Previous Rx's Medication Instructions Recorded ipratropium 0.5 mg-albuterol 3 mg 3 ml inhalation Q6-8H PRN 11/04/18 (2.5 mg base)/3 mL nebulization shortness of breath or wheezing soln #90 mL clopidogrel 75 mg tablet 75 mg PO DAILY 90 days #90 tabs 09/28/21 potassium chloride 20 mEq 20 meq PO DAILY #7 tabs 12/17/21 tablet,extended release Allergies Allergy/AdvReac Type Severity Reaction Status Date / Time acarbose Allergy Intermediate Abdominal Verified 05/03/22 11:36 Pain amlodipine Allergy Intermediate Verified 05/03/22 11:36 chlorthalidone Allergy Intermediate Redness of Verified 05/03/22 11:36 Skin doxazosin [From Cardura] Allergy Intermediate Rash Verified 05/03/22 11:36 doxycycline Allergy Intermediate Rash Verified 05/03/22 11:36 gemfibrozil Allergy Intermediate Rash Verified 05/03/22 11:36 levofloxacin Allergy Intermediate Rash Verified 05/03/22 11:36 losartan Allergy Intermediate Rash Verified 05/03/22 11:36 metoprolol Allergy Intermediate Verified 05/03/22 11:36 montelukast [From Singulair] Allergy Intermediate Difficulty Verified 05/03/22 11:36 Breathing nifedipine Allergy Intermediate Chills Verified 05/03/22 11:36 Sulfa (Sulfonamide Allergy Intermediate rash Verified 05/03/22 11:36 Antibiotics) sulfamethoxazole Allergy Intermediate Rash Verified 05/03/22 11:36 [From Bactrim] trimethoprim [From Bactrim] Allergy Intermediate Rash Verified 05/03/22 11:36 budesonide [From Symbicort] Allergy Mild Anxiety Verified 05/03/22 11:36 carvedilol Allergy Mild Rash Verified 05/03/22 11:36 choline fenofibrate Allergy Mild Gastrointestinal Verified 05/03/22 11:36 [From Trilipix] Upset formoterol [From Symbicort] Allergy Mild Anxiety Verified 05/03/22 11:36 Review of Systems <Josué Aguirre MD - Last Filed: 05/16/22 07:22> Review of Systems Narrative: GENERAL: Denies chills, fatigue, malaise, fever, sweats. HEENT: Denies sinus pain, ear pain, sore throat RESPIRATORY: Denies dyspnea, cough CARDIOVASCULAR: Positive for chest pain, negative for palpitations GASTROINTESTINAL: Denies nausea, vomiting, abdominal pain : Denies dysuria, frequency, hematuria MUSCULOSKELETAL: denies muscle or bony pain SKIN: Denies rash, skin lesions NEUROLOGIC: Denies weakness, numbness ROS Unobtainable: All systems reviewed & are unremarkable except as noted in HPI and below Patient History <Josué Aguirre MD - Last Filed: 05/16/22 07:22> Medical History (Updated 05/04/22 @ 18:45 by Ede Baptiste DO) Aneurysm of infrarenal abdominal aorta Bilateral carpal tunnel syndrome CAD (coronary artery disease) COPD (chronic obstructive pulmonary disease) with emphysema Elevated TSH HTN (hypertension) Hyperlipidemia Unstable angina Valvular heart disease Surgical History H/O hysterectomy with oophorectomy H/O three vessel coronary artery bypass Hx of heart artery stent Status post cholecystectomy Family History Father Lung cancer Mother COPD (chronic obstructive pulmonary disease) Social History household members: family and children Smoking Status: Former smoker alcohol intake: never Smoking Status: Former smoker tobacco type: cigarettes alcohol intake frequency: 0-2 drinks per day Substance Use Type: does not use Exam <Josué Aguirre MD - Last Filed: 05/16/22 07:22> Narrative Exam Narrative: GENERAL: in no distress, not toxic not dyspneic HEAD: Normocephalic. EYES: Pupils equal round No scleral icterus. ENT: Mucous membranes moist. NECK: Trachea midline. CARDIOVASCULAR: Regular rate and rhythm without murmurs RESPIRATORY: Clear to auscultation. Breath sounds equal bilaterally. No wheezes, rales, or rhonchi. GASTROINTESTINAL: Abdomen soft, non-tender EXTREMITIES: No gross deformities. BACK: No flank tenderness. NEURO: AOx4. SKIN: Warm and dry PSYCH: Not anxious, is cooperative Initial Vital Signs Initial Vital Signs: Vital Signs Temperature 97.7 F 05/03/22 08:41 Pulse Rate 78 05/03/22 08:41 Respiratory Rate 22 05/03/22 08:41 Blood Pressure 182/81 H 05/03/22 08:41 Pulse Oximetry 96 05/03/22 08:41 Oxygen Delivery Method 05/03/22 08:41 <Jean Ta, DO - Last Filed: 05/04/22 06:51> Initial Vital Signs Initial Vital Signs: Vital Signs Temperature 97.7 F 05/03/22 08:41 Pulse Rate 78 05/03/22 08:41 Respiratory Rate 22 05/03/22 08:41 Blood Pressure 182/81 H 05/03/22 08:41 Pulse Oximetry 96 05/03/22 08:41 Oxygen Delivery Method 05/03/22 08:41 <Ede Baptiste DO - Last Filed: 05/04/22 18:45> Initial Vital Signs Initial Vital Signs: Vital Signs Temperature 97.7 F 05/03/22 08:41 Pulse Rate 78 05/03/22 08:41 Respiratory Rate 22 05/03/22 08:41 Blood Pressure 182/81 H 05/03/22 08:41 Pulse Oximetry 96 05/03/22 08:41 Oxygen Delivery Method 05/03/22 08:41 Course <Josué Aguirre MD - Last Filed: 05/16/22 07:22> Course Course Narrative: No new issues during course of stay 6:00 p.m.. Sign out to Dr. Ta, patient on [facility] list for transfer, currently chest pain-free. Nurse will place together her home meds for tonight and tomorrow Decision to Admit Date: 05/03/22 Decision to Admit time: 12:41 Orders Ordered: Discontinued Medications Albuterol (Albuterol Hfa Mdi 60 Puff/8 Gm Inhaler) 2 puff INH RTQ4HR PRN PRN Reason: Shortness Of Breath Aspirin (Aspirin 81 Mg Chew Tab) 324 mg PO DAILY [facility] Last Admin: 05/04/22 10:35 Dose: 324 mg Documented By: BRITTA Atorvastatin Calcium (Atorvastatin 20 Mg Tablet) 80 mg PO BEDTIME [facility] Clopidogrel Bisulfate (Clopidogrel 75 Mg Tablet) 75 mg PO DAILY [facility] Last Admin: 05/04/22 10:35 Dose: 75 mg Documented By: BRITTA Diltiazem HCl (Diltiazem Cd 120 Mg Cap) 120 mg PO DAILY [facility] Last Admin: 05/04/22 10:38 Dose: 120 mg Documented By: BRITTA Fluticasone Propionate (Fluticasone 120 [place]/16 Gm [place].Susp) 1 spray NASAL BID [facility] Furosemide (Furosemide 40 Mg Tablet) 40 mg PO DAILY [facility] Last Admin: 05/04/22 10:37 Dose: 40 mg Documented By: BRITTA Heparin Sodium (Porcine) (Heparin 5,000 Unit/Ml Vial) 4,000 unit IV NOW ONE Stop: 05/04/22 10:35 Last Admin: 05/04/22 11:01 Dose: 4,000 unit Documented By: BRITTA Heparin Sodium/Dextrose (Heparin Drip) 25,000 unit in 500 mls @ 12.846 mls/hr IV CONT [facility]; Protocol Last Titration: 05/04/22 13:20 Dose: 0 units/kg/hr, 0 mls/hr Documented By: Admin: 05/04/22 11:02 Dose: 12 units/kg/hr, 12.846 mls/hr Documented By: BRITTA Nitroglycerin (Nitroglycerin) 50 mg in 250 mls @ 1.5 mls/hr IV TITRATE [facility]; Protocol Last Titration: 05/04/22 13:21 Dose: 0 mcg/min, 0 mls/hr Documented By: Admin: 05/04/22 12:12 Dose: 2.5 mcg/min, 0.75 mls/hr Documented By: AT Isosorbide Mononitrate (Isosorbide Mononitrate Er 30 Mg Tablet) 120 mg PO QACBREAK [facility] Last Admin: 05/04/22 10:37 Dose: 120 mg Documented By: BRITTA Levothyroxine Sodium (Levothyroxine 88 Mcg Tablet) 88 mcg PO DAILY@0600 [facility] Lisinopril (Lisinopril 20 Mg Tablet) 40 mg PO DAILY [facility] Last Admin: 05/04/22 10:36 Dose: 40 mg Documented By: BRITTA Reevaluation(s) Reevaluation #1: Updated patient results. Chest pain-free. Understands we will need to transfer because no stress test available here at this facility. Time: 12:41 Consultations Consultation #1: Spoke with Dr. Thomas, hospitalist, unable to admit because we can not do stress test. On the weekends. Time: 12:05 Consultation #2: Spoke with cardiology, dr corbin, he has reviewed patient's chart from [facility], she has seen many of their providers with cardiology. Patient did have a heart catheterization August 2020 which was unremarkable for any blockages. She had patent grafts. He recommends patient to be admitted or transferred for stress test. Time: 12:20 Vital Signs Vital signs: Vital Signs - 8 hr 05/04/22 11:06 05/04/22 11:06 05/04/22 11:15 Pulse Rate 91 H Respiratory Rate 44 H Blood Pressure 200/90 H 203/82 H Pulse Oximetry 97 Oxygen Delivery Method Oxygen Flow Rate 05/04/22 11:15 05/04/22 11:45 05/04/22 11:45 Pulse Rate 86 86 Respiratory Rate 36 H 41 H Blood Pressure 188/77 H Pulse Oximetry 96 93 Oxygen Delivery Method Nasal Cannula Oxygen Flow Rate 2 05/04/22 12:00 05/04/22 12:00 05/04/22 12:15 Pulse Rate 85 Respiratory Rate 26 H Blood Pressure 201/78 H 172/77 H Pulse Oximetry 93 Oxygen Delivery Method Oxygen Flow Rate 05/04/22 12:15 05/04/22 12:31 05/04/22 12:31 Pulse Rate 90 87 Respiratory Rate 44 H 33 H Blood Pressure 169/74 H Pulse Oximetry 96 93 Oxygen Delivery Method Oxygen Flow Rate 05/04/22 12:45 05/04/22 12:45 05/04/22 13:00 Pulse Rate 95 H Respiratory Rate 30 H Blood Pressure 163/76 H 166/68 H Pulse Oximetry 95 Oxygen Delivery Method Oxygen Flow Rate 05/04/22 13:00 05/04/22 13:15 05/04/22 13:15 Pulse Rate 85 98 H Respiratory Rate 30 H 29 H Blood Pressure 161/74 H Pulse Oximetry 95 96 Oxygen Delivery Method Oxygen Flow Rate <Jean Ta DO - Last Filed: 05/04/22 06:51> Orders Ordered: Discontinued Medications Albuterol (Albuterol Hfa Mdi 60 Puff/8 Gm Inhaler) 2 puff INH RTQ4HR PRN PRN Reason: Shortness Of Breath Aspirin (Aspirin 81 Mg Chew Tab) 324 mg PO DAILY [facility] Last Admin: 05/04/22 10:35 Dose: 324 mg Documented By: BRITTA Atorvastatin Calcium (Atorvastatin 20 Mg Tablet) 80 mg PO BEDTIME [facility] Clopidogrel Bisulfate (Clopidogrel 75 Mg Tablet) 75 mg PO DAILY [facility] Last Admin: 05/04/22 10:35 Dose: 75 mg Documented By: BRITTA Diltiazem HCl (Diltiazem Cd 120 Mg Cap) 120 mg PO DAILY [facility] Last Admin: 05/04/22 10:38 Dose: 120 mg Documented By: BRITTA Fluticasone Propionate (Fluticasone 120 [place]/16 Gm [place].Susp) 1 spray NASAL BID [facility] Furosemide (Furosemide 40 Mg Tablet) 40 mg PO DAILY [facility] Last Admin: 05/04/22 10:37 Dose: 40 mg Documented By: BRITTA Heparin Sodium (Porcine) (Heparin 5,000 Unit/Ml Vial) 4,000 unit IV NOW ONE Stop: 05/04/22 10:35 Last Admin: 05/04/22 11:01 Dose: 4,000 unit Documented By: BRITTA Heparin Sodium/Dextrose (Heparin Drip) 25,000 unit in 500 mls @ 12.846 mls/hr IV CONT [facility]; Protocol Last Titration: 05/04/22 13:20 Dose: 0 units/kg/hr, 0 mls/hr Documented By: Admin: 05/04/22 11:02 Dose: 12 units/kg/hr, 12.846 mls/hr Documented By: BRITTA Nitroglycerin (Nitroglycerin) 50 mg in 250 mls @ 1.5 mls/hr IV TITRATE [facility]; Protocol Last Titration: 05/04/22 13:21 Dose: 0 mcg/min, 0 mls/hr Documented By: Admin: 05/04/22 12:12 Dose: 2.5 mcg/min, 0.75 mls/hr Documented By: AT Isosorbide Mononitrate (Isosorbide Mononitrate Er 30 Mg Tablet) 120 mg PO QACBREAK [facility] Last Admin: 05/04/22 10:37 Dose: 120 mg Documented By: BRITTA Levothyroxine Sodium (Levothyroxine 88 Mcg Tablet) 88 mcg PO DAILY@0600 [facility] Lisinopril (Lisinopril 20 Mg Tablet) 40 mg PO DAILY [facility] Last Admin: 05/04/22 10:36 Dose: 40 mg Documented By: BRITTA Vital Signs Vital signs: Vital Signs - 8 hr 05/04/22 11:06 05/04/22 11:06 05/04/22 11:15 Pulse Rate 91 H Respiratory Rate 44 H Blood Pressure 200/90 H 203/82 H Pulse Oximetry 97 Oxygen Delivery Method Oxygen Flow Rate 05/04/22 11:15 05/04/22 11:45 05/04/22 11:45 Pulse Rate 86 86 Respiratory Rate 36 H 41 H Blood Pressure 188/77 H Pulse Oximetry 96 93 Oxygen Delivery Method Nasal Cannula Oxygen Flow Rate 2 05/04/22 12:00 05/04/22 12:00 05/04/22 12:15 Pulse Rate 85 Respiratory Rate 26 H Blood Pressure 201/78 H 172/77 H Pulse Oximetry 93 Oxygen Delivery Method Oxygen Flow Rate 05/04/22 12:15 05/04/22 12:31 05/04/22 12:31 Pulse Rate 90 87 Respiratory Rate 44 H 33 H Blood Pressure 169/74 H Pulse Oximetry 96 93 Oxygen Delivery Method Oxygen Flow Rate 05/04/22 12:45 05/04/22 12:45 05/04/22 13:00 Pulse Rate 95 H Respiratory Rate 30 H Blood Pressure 163/76 H 166/68 H Pulse Oximetry 95 Oxygen Delivery Method Oxygen Flow Rate 05/04/22 13:00 05/04/22 13:15 05/04/22 13:15 Pulse Rate 85 98 H Respiratory Rate 30 H 29 H Blood Pressure 161/74 H Pulse Oximetry 95 96 Oxygen Delivery Method Oxygen Flow Rate <Ede Baptiste, - Last Filed: 05/04/22 18:45> Orders Ordered: Discontinued Medications Albuterol (Albuterol Hfa Mdi 60 Puff/8 Gm Inhaler) 2 puff INH RTQ4HR PRN PRN Reason: Shortness Of Breath Aspirin (Aspirin 81 Mg Chew Tab) 324 mg PO DAILY [facility] Last Admin: 05/04/22 10:35 Dose: 324 mg Documented By: BRITTA Atorvastatin Calcium (Atorvastatin 20 Mg Tablet) 80 mg PO BEDTIME [facility] Clopidogrel Bisulfate (Clopidogrel 75 Mg Tablet) 75 mg PO DAILY [facility] Last Admin: 05/04/22 10:35 Dose: 75 mg Documented By: BRITTA Diltiazem HCl (Diltiazem Cd 120 Mg Cap) 120 mg PO DAILY [facility] Last Admin: 05/04/22 10:38 Dose: 120 mg Documented By: BRITTA Fluticasone Propionate (Fluticasone 120 [place]/16 Gm [place].Susp) 1 spray NASAL BID [facility] Furosemide (Furosemide 40 Mg Tablet) 40 mg PO DAILY [facility] Last Admin: 05/04/22 10:37 Dose: 40 mg Documented By: BRITTA Heparin Sodium (Porcine) (Heparin 5,000 Unit/Ml Vial) 4,000 unit IV NOW ONE Stop: 05/04/22 10:35 Last Admin: 05/04/22 11:01 Dose: 4,000 unit Documented By: BRITTA Heparin Sodium/Dextrose (Heparin Drip) 25,000 unit in 500 mls @ 12.846 mls/hr IV CONT [facility]; Protocol Last Titration: 05/04/22 13:20 Dose: 0 units/kg/hr, 0 mls/hr Documented By: Admin: 05/04/22 11:02 Dose: 12 units/kg/hr, 12.846 mls/hr Documented By: BRITTA Nitroglycerin (Nitroglycerin) 50 mg in 250 mls @ 1.5 mls/hr IV TITRATE [facility]; Protocol Last Titration: 05/04/22 13:21 Dose: 0 mcg/min, 0 mls/hr Documented By: Admin: 05/04/22 12:12 Dose: 2.5 mcg/min, 0.75 mls/hr Documented By: AT Isosorbide Mononitrate (Isosorbide Mononitrate Er 30 Mg Tablet) 120 mg PO QACBREAK [facility] Last Admin: 05/04/22 10:37 Dose: 120 mg Documented By: BRITTA Levothyroxine Sodium (Levothyroxine 88 Mcg Tablet) 88 mcg PO DAILY@0600 [facility] Lisinopril (Lisinopril 20 Mg Tablet) 40 mg PO DAILY [facility] Last Admin: 05/04/22 10:36 Dose: 40 mg Documented By: BRITTA Consultations Consultation #3: 05/04/22 Dr. Henderson, cardiology [place] discussed today's findings he would like to take for cardiac catheterization likely. Would ask her antianginal therapy and heparin. Additional Consultation(s): 05/04/22 Dr. Stout, hospitalist at [place]. Accepts for transfer. No acute EKG changes from yesterday today's, she has one troponin pending but so far have been negative although slightly elevated. Chest x-ray shows cardiomegaly, no CHF. Vital Signs Vital signs: Vital Signs - 8 hr 05/04/22 11:06 05/04/22 11:06 05/04/22 11:15 Pulse Rate 91 H Respiratory Rate 44 H Blood Pressure 200/90 H 203/82 H Pulse Oximetry 97 Oxygen Delivery Method Oxygen Flow Rate 05/04/22 11:15 05/04/22 11:45 05/04/22 11:45 Pulse Rate 86 86 Respiratory Rate 36 H 41 H Blood Pressure 188/77 H Pulse Oximetry 96 93 Oxygen Delivery Method Nasal Cannula Oxygen Flow Rate 2 05/04/22 12:00 05/04/22 12:00 05/04/22 12:15 Pulse Rate 85 Respiratory Rate 26 H Blood Pressure 201/78 H 172/77 H Pulse Oximetry 93 Oxygen Delivery Method Oxygen Flow Rate 05/04/22 12:15 05/04/22 12:31 05/04/22 12:31 Pulse Rate 90 87 Respiratory Rate 44 H 33 H Blood Pressure 169/74 H Pulse Oximetry 96 93 Oxygen Delivery Method Oxygen Flow Rate 05/04/22 12:45 05/04/22 12:45 05/04/22 13:00 Pulse Rate 95 H Respiratory Rate 30 H Blood Pressure 163/76 H 166/68 H Pulse Oximetry 95 Oxygen Delivery Method Oxygen Flow Rate 05/04/22 13:00 05/04/22 13:15 05/04/22 13:15 Pulse Rate 85 98 H Respiratory Rate 30 H 29 H Blood Pressure 161/74 H Pulse Oximetry 95 96 Oxygen Delivery Method Oxygen Flow Rate MDM - Chest Pain <Josué Aguirre MD - Last Filed: 05/16/22 07:22> Differential Diagnosis Differential diagnosis: Likely stable angina, unstable angina pectoris, atypical chest pain, st elevation myocardial infarction and chest pain Lab Data Result diagrams: 05/04/22 06:25 05/04/22 06:25 Labs: Lab Results 05/03/22 05/03/22 05/03/22 Range/Units 08:40 08:40 08:40 WBC 7.2 (4.5-11.0) X10^3/uL RBC 4.55 (4.0-5.2) X10^6/uL Hgb 12.8 (12.0-16.0) g/dL Hct 38.4 (36-46) % MCV 84.6 (80-100) fL MCH 28.1 (26-34) PG MCHC 33.2 (30-36) % RDW 14.3 (11.6-14.8) % Plt Count 198 (150-400) X10^3/uL Neut % (Auto) 70.4 (50-75) % Lymph % (Auto) 14.5 L (25-40) % [place] % (Auto) 9.0 (3-14) % Eos % (Auto) 5.2 H (2-4) % Baso % (Auto) 0.9 (0-2) % Neut # (Auto) 5100 (8419-9242) /uL Lymph # (Auto) 1000 L (6990-6891) /uL [place] # (Auto) 600 (0-900) /uL Eos # (Auto) 400 (0-450) /uL Baso # (Auto) 100 (0-100) /uL PT 11.7 (10.1-12.7) SECONDS INR 1.0 (0.9-1.3) APTT 28 (26-36) SECONDS Sodium 136 L (137-145) mmol/L Potassium 4.1 (3.4-5.1) mmol/L Chloride 105 (98-107) mmol/L Carbon Dioxide 26 (22-32) mmol/L BUN 18 H (7-17) mg/dL Creatinine 0.76 (0.52-1.04) mg/dL Estimated GFR > 60 (>60) mL/min BUN/Creatinine Ratio 23.7 H (6-22) Glucose 125 H (80-110) mg/dL Calcium 9.7 (8.4-10.2) mg/dL Total Bilirubin 0.6 (0.2-1.3) mg/dL AST 26 (14-36) IU/L ALT 15 (<35) IU/L Alkaline Phosphatase 72 (38-126) U/L Total Creatine Kinase 29 L (30-135) U/L CK-MB (CK-2) TNP CK-MB (CK-2) Rel Index TNP Troponin I 0.021 (0.01-0.034) ng/mL Total Protein 6.6 (6.3-8.2) g/dL Albumin 3.6 (3.5-5.0) g/dL Globulin 3.0 (1.7-4.1) g/dL Albumin/Globulin Ratio 1.2 (1.0-2.8) SARS-CoV-2 (PCR) (Negative) 05/03/22 05/03/22 05/04/22 Range/Units 08:40 11:30 06:25 WBC 6.8 (4.5-11.0) X10^3/uL RBC 4.61 (4.0-5.2) X10^6/uL Hgb 13.0 (12.0-16.0) g/dL Hct 38.6 (36-46) % MCV 83.8 (80-100) fL MCH 28.1 (26-34) PG MCHC 33.5 (30-36) % RDW 14.4 (11.6-14.8) % Plt Count 207 (150-400) X10^3/uL Neut % (Auto) 64.2 (50-75) % Lymph % (Auto) 17.9 L (25-40) % [place] % (Auto) 9.2 (3-14) % Eos % (Auto) 7.5 H (2-4) % Baso % (Auto) 1.2 (0-2) % Neut # (Auto) 4400 (6494-7615) /uL Lymph # (Auto) 1200 (0858-4181) /uL [place] # (Auto) 600 (0-900) /uL Eos # (Auto) 500 H (0-450) /uL Baso # (Auto) 100 (0-100) /uL PT (10.1-12.7) SECONDS INR (0.9-1.3) APTT (26-36) SECONDS Sodium (137-145) mmol/L Potassium (3.4-5.1) mmol/L Chloride (98-107) mmol/L Carbon Dioxide (22-32) mmol/L BUN (7-17) mg/dL Creatinine (0.52-1.04) mg/dL Estimated GFR (>60) mL/min BUN/Creatinine Ratio (6-22) Glucose (80-110) mg/dL Calcium (8.4-10.2) mg/dL Total Bilirubin (0.2-1.3) mg/dL AST (14-36) IU/L ALT (<35) IU/L Alkaline Phosphatase (38-126) U/L Total Creatine Kinase 28 L (30-135) U/L CK-MB (CK-2) TNP CK-MB (CK-2) Rel Index TNP Troponin I 0.021 (0.01-0.034) ng/mL Total Protein (6.3-8.2) g/dL Albumin (3.5-5.0) g/dL Globulin (1.7-4.1) g/dL Albumin/Globulin Ratio (1.0-2.8) SARS-CoV-2 (PCR) Negative (Negative) 05/04/22 05/04/22 Range/Units 06:25 10:55 WBC (4.5-11.0) X10^3/uL RBC (4.0-5.2) X10^6/uL Hgb (12.0-16.0) g/dL Hct (36-46) % MCV (80-100) fL MCH (26-34) PG MCHC (30-36) % RDW (11.6-14.8) % Plt Count (150-400) X10^3/uL Neut % (Auto) (50-75) % Lymph % (Auto) (25-40) % [place] % (Auto) (3-14) % Eos % (Auto) (2-4) % Baso % (Auto) (0-2) % Neut # (Auto) (7248-1795) /uL Lymph # (Auto) (7964-3360) /uL [place] # (Auto) (0-900) /uL Eos # (Auto) (0-450) /uL Baso # (Auto) (0-100) /uL PT (10.1-12.7) SECONDS INR (0.9-1.3) APTT (26-36) SECONDS Sodium 137 (137-145) mmol/L Potassium 4.2 (3.4-5.1) mmol/L Chloride 103 (98-107) mmol/L Carbon Dioxide 29 (22-32) mmol/L BUN 18 H (7-17) mg/dL Creatinine 0.77 (0.52-1.04) mg/dL Estimated GFR > 60 (>60) mL/min BUN/Creatinine Ratio 23.4 H (6-22) Glucose 106 (80-110) mg/dL Calcium 9.6 (8.4-10.2) mg/dL Total Bilirubin (0.2-1.3) mg/dL AST (14-36) IU/L ALT (<35) IU/L Alkaline Phosphatase (38-126) U/L Total Creatine Kinase 21 L (30-135) U/L CK-MB (CK-2) TNP CK-MB (CK-2) Rel Index TNP Troponin I 0.030 0.025 (0.01-0.034) ng/mL Total Protein (6.3-8.2) g/dL Albumin (3.5-5.0) g/dL Globulin (1.7-4.1) g/dL Albumin/Globulin Ratio (1.0-2.8) SARS-CoV-2 (PCR) (Negative) Imaging Data Chest x-ray: Radiologist's Impression: [address] [address] XRay Report Signed Patient: Elysia Aguilar MR#: [id number] : 1935 Acct:[id number] Age/Sex: 86 / F Date of Service: 05/03/22 Loc: ED Accession Number: [id number] ?? Procedure: XR chest 1V Ordering Provider: Josué Aguirre MD PROCEDURE:? XR CHEST 1V ? INDICATIONS:? chest pain ? TECHNIQUE:? One view of the chest was acquired.? ? COMPARISON:? [facility], CR, XR CHEST 1V, 04/14/2022, 12:12. ? FINDINGS:? ? Surgical changes and devices:? Median sternotomy wires are present and appear intact. Surgical clips in right upper quadrant compatible with prior cholecystectomy. ? Lungs and pleura:? Persistent chronic appearing mild diffuse interstitial prominence.? No focal consolidation.? No pleural effusion.? No pneumothorax. ? Mediastinum:? Mediastinal contours appear stable.? Heart size is enlarged.? ? Bones and chest wall:? No suspicious bony lesions.? Overlying soft tissues appear unremarkable.? ? IMPRESSION:? Cardiomegaly without evidence for acute cardiopulmonary abnorm alities. ? Stable appearance of chronic diffuse interstitial prominence.? No focal consolidation seen. ? ? Dictated by: Garrett Dan M.D. on 05/03/2022 at 9:18 ? ? Approved by: Garrett Dan M.D. on 05/03/2022 at 9:19 ? ECG Data Interpretation: Normal sinus rhythm rate [address] elevation or depression. There is right bundle-branch block. MDM Narrative Medical decision making narrative: Will need to transfer patient for stress test. We do not have capability to do stress test here on the weekends. <Jean Ta DO - Last Filed: 05/04/22 06:51> Lab Data Labs: Lab Results 05/03/22 05/03/22 05/03/22 Range/Units 08:40 08:40 08:40 WBC 7.2 (4.5-11.0) X10^3/uL RBC 4.55 (4.0-5.2) X10^6/uL Hgb 12.8 (12.0-16.0) g/dL Hct 38.4 (36-46) % MCV 84.6 (80-100) fL MCH 28.1 (26-34) PG MCHC 33.2 (30-36) % RDW 14.3 (11.6-14.8) % Plt Count 198 (150-400) X10^3/uL Neut % (Auto) 70.4 (50-75) % Lymph % (Auto) 14.5 L (25-40) % [place] % (Auto) 9.0 (3-14) % Eos % (Auto) 5.2 H (2-4) % Baso % (Auto) 0.9 (0-2) % Neut # (Auto) 5100 (4227-4810) /uL Lymph # (Auto) 1000 L (4950-1640) /uL [place] # (Auto) 600 (0-900) /uL Eos # (Auto) 400 (0-450) /uL Baso # (Auto) 100 (0-100) /uL PT 11.7 (10.1-12.7) SECONDS INR 1.0 (0.9-1.3) APTT 28 (26-36) SECONDS Sodium 136 L (137-145) mmol/L Potassium 4.1 (3.4-5.1) mmol/L Chloride 105 (98-107) mmol/L Carbon Dioxide 26 (22-32) mmol/L BUN 18 H (7-17) mg/dL Creatinine 0.76 (0.52-1.04) mg/dL Estimated GFR > 60 (>60) mL/min BUN/Creatinine Ratio 23.7 H (6-22) Glucose 125 H (80-110) mg/dL Calcium 9.7 (8.4-10.2) mg/dL Total Bilirubin 0.6 (0.2-1.3) mg/dL AST 26 (14-36) IU/L ALT 15 (<35) IU/L Alkaline Phosphatase 72 (38-126) U/L Total Creatine Kinase 29 L (30-135) U/L CK-MB (CK-2) TNP CK-MB (CK-2) Rel Index TNP Troponin I 0.021 (0.01-0.034) ng/mL Total Protein 6.6 (6.3-8.2) g/dL Albumin 3.6 (3.5-5.0) g/dL Globulin 3.0 (1.7-4.1) g/dL Albumin/Globulin Ratio 1.2 (1.0-2.8) SARS-CoV-2 (PCR) (Negative) 05/03/22 05/03/22 05/04/22 Range/Units 08:40 11:30 06:25 WBC 6.8 (4.5-11.0) X10^3/uL RBC 4.61 (4.0-5.2) X10^6/uL Hgb 13.0 (12.0-16.0) g/dL Hct 38.6 (36-46) % MCV 83.8 (80-100) fL MCH 28.1 (26-34) PG MCHC 33.5 (30-36) % RDW 14.4 (11.6-14.8) % Plt Count 207 (150-400) X10^3/uL Neut % (Auto) 64.2 (50-75) % Lymph % (Auto) 17.9 L (25-40) % [place] % (Auto) 9.2 (3-14) % Eos % (Auto) 7.5 H (2-4) % Baso % (Auto) 1.2 (0-2) % Neut # (Auto) 4400 (2641-7502) /uL Lymph # (Auto) 1200 (5450-4171) /uL [place] # (Auto) 600 (0-900) /uL Eos # (Auto) 500 H (0-450) /uL Baso # (Auto) 100 (0-100) /uL PT (10.1-12.7) SECONDS INR (0.9-1.3) APTT (26-36) SECONDS Sodium (137-145) mmol/L Potassium (3.4-5.1) mmol/L Chloride (98-107) mmol/L Carbon Dioxide (22-32) mmol/L BUN (7-17) mg/dL Creatinine (0.52-1.04) mg/dL Estimated GFR (>60) mL/min BUN/Creatinine Ratio (6-22) Glucose (80-110) mg/dL Calcium (8.4-10.2) mg/dL Total Bilirubin (0.2-1.3) mg/dL AST (14-36) IU/L ALT (<35) IU/L Alkaline Phosphatase (38-126) U/L Total Creatine Kinase 28 L (30-135) U/L CK-MB (CK-2) TNP CK-MB (CK-2) Rel Index TNP Troponin I 0.021 (0.01-0.034) ng/mL Total Protein (6.3-8.2) g/dL Albumin (3.5-5.0) g/dL Globulin (1.7-4.1) g/dL Albumin/Globulin Ratio (1.0-2.8) SARS-CoV-2 (PCR) Negative (Negative) 05/04/22 05/04/22 Range/Units 06:25 10:55 WBC (4.5-11.0) X10^3/uL RBC (4.0-5.2) X10^6/uL Hgb (12.0-16.0) g/dL Hct (36-46) % MCV (80-100) fL MCH (26-34) PG MCHC (30-36) % RDW (11.6-14.8) % Plt Count (150-400) X10^3/uL Neut % (Auto) (50-75) % Lymph % (Auto) (25-40) % [place] % (Auto) (3-14) % Eos % (Auto) (2-4) % Baso % (Auto) (0-2) % Neut # (Auto) (8791-9590) /uL Lymph # (Auto) (7518-8352) /uL [place] # (Auto) (0-900) /uL Eos # (Auto) (0-450) /uL Baso # (Auto) (0-100) /uL PT (10.1-12.7) SECONDS INR (0.9-1.3) APTT (26-36) SECONDS Sodium 137 (137-145) mmol/L Potassium 4.2 (3.4-5.1) mmol/L Chloride 103 (98-107) mmol/L Carbon Dioxide 29 (22-32) mmol/L BUN 18 H (7-17) mg/dL Creatinine 0.77 (0.52-1.04) mg/dL Estimated GFR > 60 (>60) mL/min BUN/Creatinine Ratio 23.4 H (6-22) Glucose 106 (80-110) mg/dL Calcium 9.6 (8.4-10.2) mg/dL Total Bilirubin (0.2-1.3) mg/dL AST (14-36) IU/L ALT (<35) IU/L Alkaline Phosphatase (38-126) U/L Total Creatine Kinase 21 L (30-135) U/L CK-MB (CK-2) TNP CK-MB (CK-2) Rel Index TNP Troponin I 0.030 0.025 (0.01-0.034) ng/mL Total Protein (6.3-8.2) g/dL Albumin (3.5-5.0) g/dL Globulin (1.7-4.1) g/dL Albumin/Globulin Ratio (1.0-2.8) SARS-CoV-2 (PCR) (Negative) MDM Narrative Medical decision making narrative: Will need to transfer patient for stress test. We do not have capability to do stress test here on the weekends. Dr Ta overnight 05/03-05/04: Received turned over. Review patient's history and physical exam. Patient currently awaiting a bed to open at a facility where she can obtain stress test/further risk stratification. Patient has been stable overnight. Care turned over to Dr. baptiste to continue to work with disposition. <Ede Baptiste, DO - Last Filed: 05/04/22 18:45> Lab Data Labs: Lab Results 05/03/22 05/03/22 05/03/22 Range/Units 08:40 08:40 08:40 WBC 7.2 (4.5-11.0) X10^3/uL RBC 4.55 (4.0-5.2) X10^6/uL Hgb 12.8 (12.0-16.0) g/dL Hct 38.4 (36-46) % MCV 84.6 (80-100) fL MCH 28.1 (26-34) PG MCHC 33.2 (30-36) % RDW 14.3 (11.6-14.8) % Plt Count 198 (150-400) X10^3/uL Neut % (Auto) 70.4 (50-75) % Lymph % (Auto) 14.5 L (25-40) % [place] % (Auto) 9.0 (3-14) % Eos % (Auto) 5.2 H (2-4) % Baso % (Auto) 0.9 (0-2) % Neut # (Auto) 5100 (5565-8112) /uL Lymph # (Auto) 1000 L (7899-6995) /uL [place] # (Auto) 600 (0-900) /uL Eos # (Auto) 400 (0-450) /uL Baso # (Auto) 100 (0-100) /uL PT 11.7 (10.1-12.7) SECONDS INR 1.0 (0.9-1.3) APTT 28 (26-36) SECONDS Sodium 136 L (137-145) mmol/L Potassium 4.1 (3.4-5.1) mmol/L Chloride 105 (98-107) mmol/L Carbon Dioxide 26 (22-32) mmol/L BUN 18 H (7-17) mg/dL Creatinine 0.76 (0.52-1.04) mg/dL Estimated GFR > 60 (>60) mL/min BUN/Creatinine Ratio 23.7 H (6-22) Glucose 125 H (80-110) mg/dL Calcium 9.7 (8.4-10.2) mg/dL Total Bilirubin 0.6 (0.2-1.3) mg/dL AST 26 (14-36) IU/L ALT 15 (<35) IU/L Alkaline Phosphatase 72 (38-126) U/L Total Creatine Kinase 29 L (30-135) U/L CK-MB (CK-2) TNP CK-MB (CK-2) Rel Index TNP Troponin I 0.021 (0.01-0.034) ng/mL Total Protein 6.6 (6.3-8.2) g/dL Albumin 3.6 (3.5-5.0) g/dL Globulin 3.0 (1.7-4.1) g/dL Albumin/Globulin Ratio 1.2 (1.0-2.8) SARS-CoV-2 (PCR) (Negative) 05/03/22 05/03/22 05/04/22 Range/Units 08:40 11:30 06:25 WBC 6.8 (4.5-11.0) X10^3/uL RBC 4.61 (4.0-5.2) X10^6/uL Hgb 13.0 (12.0-16.0) g/dL Hct 38.6 (36-46) % MCV 83.8 (80-100) fL MCH 28.1 (26-34) PG MCHC 33.5 (30-36) % RDW 14.4 (11.6-14.8) % Plt Count 207 (150-400) X10^3/uL Neut % (Auto) 64.2 (50-75) % Lymph % (Auto) 17.9 L (25-40) % [place] % (Auto) 9.2 (3-14) % Eos % (Auto) 7.5 H (2-4) % Baso % (Auto) 1.2 (0-2) % Neut # (Auto) 4400 (1052-1262) /uL Lymph # (Auto) 1200 (9906-4934) /uL [place] # (Auto) 600 (0-900) /uL Eos # (Auto) 500 H (0-450) /uL Baso # (Auto) 100 (0-100) /uL PT (10.1-12.7) SECONDS INR (0.9-1.3) APTT (26-36) SECONDS Sodium (137-145) mmol/L Potassium (3.4-5.1) mmol/L Chloride (98-107) mmol/L Carbon Dioxide (22-32) mmol/L BUN (7-17) mg/dL Creatinine (0.52-1.04) mg/dL Estimated GFR (>60) mL/min BUN/Creatinine Ratio (6-22) Glucose (80-110) mg/dL Calcium (8.4-10.2) mg/dL Total Bilirubin (0.2-1.3) mg/dL AST (14-36) IU/L ALT (<35) IU/L Alkaline Phosphatase (38-126) U/L Total Creatine Kinase 28 L (30-135) U/L CK-MB (CK-2) TNP CK-MB (CK-2) Rel Index TNP Troponin I 0.021 (0.01-0.034) ng/mL Total Protein (6.3-8.2) g/dL Albumin (3.5-5.0) g/dL Globulin (1.7-4.1) g/dL Albumin/Globulin Ratio (1.0-2.8) SARS-CoV-2 (PCR) Negative (Negative) 05/04/22 05/04/22 Range/Units 06:25 10:55 WBC (4.5-11.0) X10^3/uL RBC (4.0-5.2) X10^6/uL Hgb (12.0-16.0) g/dL Hct (36-46) % MCV (80-100) fL MCH (26-34) PG MCHC (30-36) % RDW (11.6-14.8) % Plt Count (150-400) X10^3/uL Neut % (Auto) (50-75) % Lymph % (Auto) (25-40) % [place] % (Auto) (3-14) % Eos % (Auto) (2-4) % Baso % (Auto) (0-2) % Neut # (Auto) (4744-3997) /uL Lymph # (Auto) (4634-6709) /uL [place] # (Auto) (0-900) /uL Eos # (Auto) (0-450) /uL Baso # (Auto) (0-100) /uL PT (10.1-12.7) SECONDS INR (0.9-1.3) APTT (26-36) SECONDS Sodium 137 (137-145) mmol/L Potassium 4.2 (3.4-5.1) mmol/L Chloride 103 (98-107) mmol/L Carbon Dioxide 29 (22-32) mmol/L BUN 18 H (7-17) mg/dL Creatinine 0.77 (0.52-1.04) mg/dL Estimated GFR > 60 (>60) mL/min BUN/Creatinine Ratio 23.4 H (6-22) Glucose 106 (80-110) mg/dL Calcium 9.6 (8.4-10.2) mg/dL Total Bilirubin (0.2-1.3) mg/dL AST (14-36) IU/L ALT (<35) IU/L Alkaline Phosphatase (38-126) U/L Total Creatine Kinase 21 L (30-135) U/L CK-MB (CK-2) TNP CK-MB (CK-2) Rel Index TNP Troponin I 0.030 0.025 (0.01-0.034) ng/mL Total Protein (6.3-8.2) g/dL Albumin (3.5-5.0) g/dL Globulin (1.7-4.1) g/dL Albumin/Globulin Ratio (1.0-2.8) SARS-CoV-2 (PCR) (Negative) Imaging Data echo: Radiologist's Impression: Elysia Aguilar??86??F??1935 ? Allergy/Adv: acarbose, amlodipine, chlorthalidone, doxazosin, doxycycline, gemfibrozil, levofloxacin, losartan, metoprolol, montelukast, nifedipine, Sulfa (Sulfonamide Antibiotics), sulfamethoxazole, trimethoprim, budesonide, ca rvedilol, choline fenofibrate, formoterol (More??) Close Echocardiogram Ultrasound (Signed) Milagros Meehan - 05/04/22 Chest X-Ray (Signed) Garrett Dan - 05/03/22 EKG Rpt. 04/14/22 Chest CTA (Signed) Misha Orellana - 04/14/22 Chest X-Ray (Signed) Misha Orellana - 04/14/22 Chest X-Ray (Signed) Casper Ferraro - 03/24/22 Chest X-Ray (Signed) Call,Marito - 01/04/22 Abdomen/Pelvis CT (Signed) Korina Calvo - 12/21/21 Chest CTA (Signed) Korina Calvo - 12/21/21 Chest X-Ray (Signed) Umesh,Korina - 12/21/21 Chest X-Ray (Signed) Nikki Gudino - 12/17/21 Chest X-Ray (Signed) Nikki Gudino - 09/26/21 Telemetry Strips 09/25/21 Chest CTA (Signed) AshleyEstuardo - 09/25/21 Chest X-Ray (Signed) Saran Ramirezu - 09/25/21 Chest X-Ray (Signed) [place] - 09/15/21 Telemetry Strips 09/15/21 Chest X-Ray (Signed) RonanCasper - 09/15/21 Radiology Report (Cancelled) Mary,Codiedhu - 08/30/21 Myocardial Perfusion Scan Nuc Med (Signed) AngiealCodiedhu - 08/30/21 Chest X-Ray (Signed) Garrett Dan - 06/30/21 Chest X-Ray (Signed) Ronaldo Santana - 04/16/21 Foot X-Ray (Signed) Nikki Gudino - 02/26/21 Abdomen/Pelvis CTA (Signed) [place] - 01/21/21 Lumbar Spine X-Ray (Signed) Emmie Lakee - 01/21/21 Cervical Spine X-Ray (Signed) [place] - 01/21/21 Foot X-Ray (Signed) Oliverio Quiroga - 11/13/20 Radiology Report (Cancelled) Paliwal,Vidhu - 07/24/20 Myocardial Perfusion Scan Nuc Med (Signed) Paliwal,Vidhu - 07/24/20 Echocardiogram Ultrasound (Signed) Ck David - 06/07/20 Chest X-Ray (Signed) Garrick Foy - 05/28/20 Chest X-Ray (Signed) Taylor Mills - 09/15/19 Foot X-Ray (Signed) Call,Marito - 06/09/19 Ankle X-Ray (Signed) Call,Marito - 06/09/19 Chest X-Ray (Signed) Estuardo Ramirez - 01/27/19 Chest CTA (Signed) [place] - 01/16/19 Chest X-Ray (Signed) [place] - 01/16/19 Telemetry Strips 01/16/19 Chest X-Ray (Signed) Casper Ferraro - 11/04/18 PFT Result 09/21/18 Chest X-Ray (Signed) Saran Ramirezmelissa - 07/07/18 Telemetry Strips 04/17/18 Chest X-Ray (Signed) Renetta Nolandiah - 04/17/18 Ribs X-Ray (Signed) AshleySaran caseymelissa - 04/15/18 Launch?[address] [address] Echocardiography Report Signed Patient: Elysia Aguilar MR#: [id number] : 1935 Acct:[id number] Age/Sex: 86 / F Date of Service: 05/04/22 Loc: ED Accession Number: [id number] ?? Procedure: EC echo doppler complete Ordering Provider: Ede Baptiste D.O. ? [facility]---------[facility]? [facility]? +---------+ : ? :? [address] [place] [address] ? : ? : : ? :? [place], [place] ? : ? : : ? :? [id number] ? : ? : : ? : ? Phone: [phone] : ? : [phone]? [phone]? +---------+ ? Echocardiogram Report + + :Name: ELYSIA AGUILAR ? Study Date: 05/04/2022 ? Height: 60 in? : :[facility] ? ? ReadingLocation: ? Weight: 118 lb : : ? Gender: Female ? BSA: 1.5 m2? ? : :: 1935? Age: 86 yrs? BP: 197/79 mmHg: :Reason For Study: CHEST PAIN ? : :Ordering Physician: BENJAMIN,? : :EDE ? Performed By: Mikayla Way? : :Referring: EDE BAPTISTE? : + + Interpretation Summary 1) Mildly enlarged left ventricle with severely reduced systolic function (EF 25-30%). 2) The basal to mid inferolateral wall, basal to mid inferior wall, and the apex are akinetic.Rest of the LV is moderately hypokinetic. 3) Normal right ventricular size with moderately function. 3) There is moderate to severe aortic stenosis (valve area 0.8cm2, mean gradient 17.5mmHg, severity ratio 0.29). 4) Compared to the Echo done 08/31/2021, LVEF has dropped from 35-40% to 25-30% on this study and aortic stenosis has decreased from mild-moderate to moderate-severe on this study. ? Procedure: ? A two-dimensional transthoracic echocardiogram with color flow and Doppler was performed. The study quality was technically adequate. Comparison is made with the echocardiogram of 06/07/2020. The heart rate ranged between 75-83 bpm during the study. Left Ventricle: ? The left ventricle is mildly dilated. There is mild concentric left ventricular hypertrophy. The ejection fraction is estimated to be 25-30%. The basal to mid inferolateral wall, basal to mid inferior wall, and the apex are akinetic.Rest of the LV is moderately hypokinetic. Diastolic function could not be accurately assessed due to unobtainable data. Right Ventricle: ? The right ventricle is normal size. Right ventricular systolic function is moderately reduced. Atria: ? The left atrium is moderately dilated. Right atrial size is normal. There is no Doppler evidence for an interatrial shunt. Mitral Valve: ? There is mild mitral annular calcification. The mitral valve leaflets are mildly calcified. The mitral valve mean gradient is 4.4 mmHg. There is mild mitral regurgitation. Aortic Valve: ? The aortic valve is trileaflet. The aortic valve is moderately calcified. There is discrete nodular thickening of the non- coronary cusp. The peak aortic velocity is 2.9 m/sec. The peak aortic velocity on the previous exam was 2.7 m/sec. The aortic valve mean gradient is 18 mmHg. The calculated aortic valve area is 0.82 cm2. There is moderate to severe aortic stenosis. There is mild aortic regurgitation. Tricuspid Valve: ? The tricuspid valve is normal in structure and function. There is a trace or physiologic amount of tricuspid regurgitation. Pulmonary artery pressures cannot be estimated because of the lack of a measurable TR jet velocity but the IVC suggests a CVP of around 8 mmHg. Pulmonic Valve: ? The pulmonic valve annulus is dilated. There is mild pulmonic regurgitation. Great Vessels: ? The aortic root is normal size. The dimensions of the ascending aorta are normal. The ascending aorta is at the upper limits of normal in size. The IVC is of normal diameter and collapses less than 50% with a sniff. This suggests a right atrial pressure of 8 mm Hg. Pericardium/ Pleura ? There is no pericardial effusion. There is no pleural effusion. ? MMode/2D Measurements & Calculations LVIDd: 5.7 cm? LVOT diam: 2.0 cm LVIDs: 5.1 cm? Ao root diam: 3.9 cm FS: 10.5 % ? asc Aorta Diam: 3.7 cm EPSS: 1.8 cm ? Ao Arch Diam (Prox Trans): 2.1 cm IVSd: 1.1 cm LVPWd: 1.2 cm LV gonzales. diameter/BSA (cm/m^2): 3.8 LV sys. diameter/BSA (cm/m^2): 3.4 ? LA A2 area: 26.1 cm2 ? RA long axis: 4.6 cm LA A4 area: 17.8 cm2 ? RA area: 11.4 cm2 LA length (vol): 5.7 cm? RA vol: 23.7 ml LA vol: 69.4 ml? RA : 15.9 ml/m2 LA vol index: 46.5 ml/m2 ? IVC diam: 0.68 cm ? RVD1 (basal): 3.0 cm RVD2 (mid): 2.4 cm TAPSE: 1.2 cm ? Doppler Measurements & Calculations Ao V2 max: 293.5 cm/sec? LVOT Max Gurpreet: 76.0 cm/sec Ao V2 mean: 181.7 cm/sec ? LV V1 max P.3 mmHg Ao max P.5 mmHg ? LV V1 VTI: 14.5 cm Ao mean P.5 mmHg? KENNY(I,D): 0.92 cm2 Ao V2 VTI: 49.5 cm ? KENNY(V,D): 0.82 cm2 ? sev ratio: 0.29 ? KENNY indexed to BSA (cm^2/m^2): 0.62 ? Med Peak E' Gurpreet: 7.5 cm/sec? ? ? PA V2 max: 70.8 cm/sec Lat Peak E' Gurpreet: 8.5 cm/sec? ? ? PA V2 mean: 49.6 cm/sec MVA(VTI): 1.7 cm2? PA mean P.1 mmHg ? PA pr(Accel): 34.5 mmHg ? MV V2 mean: 93.5 cm/sec? SV(LVOT): 45.6 ml MV mean P.4 mmHg MV V2 VTI: 26.3 cm ? Reading Physician:10:55 AM ECG Data Interpretation: Normal sinus rhythm rate [address] elevation or depression. There is right bundle-branch block. EKG 2., rate of 87 KS 176 QRS of 164 and QTC 507 sinus occasional PVC, right bundle. Patient has from yesterday which appears similar and prior from prior visits with no dynamic changes appreciated. MDM Narrative Medical decision making narrative: Will need to transfer patient for stress test. We do not have capability to do stress test here on the weekends. Dr Ta overnight 05/03-05/04: Received turned over. Review patient's history and physical exam. Patient currently awaiting a bed to open at a facility where she can obtain stress test/further risk stratification. Patient has been stable overnight. Care turned over to Dr. baptiste to continue to work with disposition. Benjamin (05/04/22): Patient signed out to myself patient had chest pain that was left-sided and radiated down the left arm resolved with nitroglycerin. Patient has had these episodes on and off in the past. It has resolved at this time. Had aspirin nitro at clinic. Has a history of cardiac disease with triple bypass in 2006 with cardiac catheterization in August 2020 which at that time showed patent vessels. EKGs did not show changes beyond right bundle branch block. Troponins have been negative x3 so far. Patient was seen and evaluated by myself, during our discussions patient is having pretty classic left chest pain radiating to her left arm which is intermittent and seems similar to an unstable angina, patient had some episodes overnight which she did not share with staff but at this moment is without chest pain. Attempting to transfer for stress testing as we do not have it available throughout the weekend. Ordered echo this morning, will order daily medications, repeat troponin at noon and review these results with Cardiology once resulted. [facility]iology called back if potential beds. Echo results are pending as well as troponin discussed patient's blood pressures trended upward overnight she is not been on her blood pressure medications. They recommend that we start these but also go ahead and start nitro or antianginal therapy on heparin. Reviewed patient's troponin has not trended upwards but has a very good history with prior CABG and heart catheterization in 2020. They accept for transfer for possible heart catheterization. Spoke with hospitalist as well who accepts for transfer. Patient echo resulted before transfer patient patient has EF 25-30%, patient has akinetic regions at the mid inferolateral wall, basal to mid inferior and apex with LV moderately hypokinetic, normal right ventricular size with moderate function, moderate to severe aortic stenosis, prior echo showed LVEF of 35-40% today is 25-30% and aortic stenosis has decreased from [id number] to moderate severe with the steady today. <Ede Baptiste, DO - Last Filed: 05/04/22 18:45> Critical Care Time Critical Care Time: Yes Total Critical Care Time: 50 Attestation: The high probability of a clinically significant, sudden or life threatening deterioration of the [cardiac] system(s) required my full and direct attention, intervention and personal management. The aggregate critical care time was [] minutes. This time is in addition to time spent performing reported procedures but includes the following: [x] Data Review and interpretation [x] Patient assessment and monitoring of vital signs [x] Documentation [x] Medication orders and management Discharge Plan Departure Patient Disposition: er [facility] Clinical Impression: Chest pain, Unstable angina Prescriptions: No Action aspirin 81 MG tablet,delayed release (DR/EC) 81 mg PO QDAY Qty: 0 albuterol sulfate 90 mcg/actuation HFA aerosol inhaler 2 puff Inhalation Q4H PRN (Reason: Shortness Of Breath) omega [id number] oil [Fish Oil] 1,000 mg (120 mg-180 mg) Capsule 1,000 mg PO DAILY nitroglycerin [Nitrostat] 0.4 mg Tablet, Sublingual 0.4 mg SUBLINGUAL Q5-15M PRN (Reason: Chest Pain) fluticasone propionate [Flonase Allergy Relief] 50 mcg/actuation [place],Suspension 1 spray Intranasal BID PRN (Reason: Allergy Symptoms) Rx Instructions: stopped taking r/t cost vitamin E 400 unit Capsule 400 unit PO DAILY multivitamin Tablet,Chewable 1 tab PO DAILY ipratropium-albuterol 0.5 mg-3 mg(2.5 mg base)/3 mL solution for nebulization 3 ml INHALATION Q6-8H PRN (Reason: shortness of breath or wheezing) Qty: 90 0RF clopidogrel 75 mg Tablet 75 mg PO DAILY 90 Days Qty: 90 4RF potassium chloride 20 mEq tablet extended release 20 meq PO DAILY Qty: 7 0RF atorvastatin [Lipitor] 20 mg tablet 40 mg PO QAM Label Comments: patient states she forgets to take diltiazem HCl [Cartia XT] 120 mg capsule,extended release 24hr 120 mg PO QAM Label Comments: TAKE 1 CAPSULE BY MOUTH ONCE DAILY furosemide 40 mg tablet 40 mg PO QAM Label Comments: TAKE 1 TABLET BY MOUTH TWICE DAILY levothyroxine 88 mcg tablet 88 mcg PO QAM Label Comments: TAKE 1 TABLET BY MOUTH ONCE DAILY isosorbide mononitrate 120 mg tablet extended release 24 hr 120 mg PO QAM Label Comments: TAKE 1 TABLET BY MOUTH ONCE DAILY IN THE MORNING lisinopril 40 mg tablet 40 mg PO QAM Label Comments: TAKE 1 TABLET BY MOUTH ONCE DAILY
[2022-05-03 08:54] LABS: Add Manual Diff / Slide Review NO; Basophils Absolute Auto 100 /uL (0-100); Basophils Percent Auto 0.9 % (0-2); Eosinophils Absolute Auto 400 /uL (0-450); Eosinophils Percent Auto 5.2 % (2-4); Hematocrit 38.4 % (36-46); Hemoglobin 12.8 g/dL (12.0-16.0); Lymphocytes Absolute Auto 1000 /uL (1100-4500); Lymphocytes Percent Auto 14.5 % (25-40); Mean Corpuscular HGB Conc 33.2 % (30-36); Mean Corpuscular Hemoglobin 28.1 PG (26-34); Mean Corpuscular Volume 84.6 fL (80-100); Monocytes Absolute Auto 600 /uL (0-900); Neutrophils Absolute Auto 5100 /uL (1500-7000); Neutrophils Percent Auto 70.4 % (50-75); Platelet Count 198 X10^3/uL (150-400); Red Blood Cell Count 4.55 X10^6/uL (4.0-5.2); Red Cell Distribution Width 14.3 % (11.6-14.8); White Blood Cell Count 7.2 X10^3/uL (4.5-11.0)
[2022-05-03 08:59] LABS: Prothrombin Time 11.7 SECONDS (10.1-12.7)
[2022-05-03 09:02] LABS: PTT Partial Thromboplastin Tim 28 SECONDS (26-36)
[2022-05-03 09:05] LABS: Alanine Aminotransferase 15 IU/L (<35); Albumin 3.6 g/dL (3.5-5.0); Albumin Globulin Ratio 1.2 (1.0-2.8); Alkaline Phosphatase 72 U/L (38-126); Aspartate Aminotransferase 26 IU/L (14-36); BUN Creatinine Ratio 23.7 (6-22); Bilirubin Total 0.6 mg/dL (0.2-1.3); Blood Urea Nitrogen 18 mg/dL (7-17); Calcium 9.7 mg/dL (8.4-10.2); Carbon Dioxide 26 mmol/L (22-32); Chloride 105 mmol/L (98-107); Creatine Kinase 29 U/L (30-135); Estimated Glomerular Filt Rate > 60 mL/min (>60); Glucose 125 mg/dL (80-110); HEMOLYSIS 32 (0-50); Potassium 4.1 mmol/L (3.4-5.1); Sodium 136 mmol/L (137-145); Total Protein 6.6 g/dL (6.3-8.2)
[2022-05-03 09:17] LABS: Troponin I 0.021 ng/mL (0.01-0.034)
[2022-05-03 09:18] LABS: COVID19 -Nasal RAPID Negative (Negative)
[2022-05-03 11:48] LABS: Creatine Kinase 28 U/L (30-135)
[2022-05-03 12:01] LABS: Troponin I 0.021 ng/mL (0.01-0.034)
[2022-05-04] VITALS (31 sets, daily range): BP systolic 161–224; BP diastolic 68–100; PULSE 66–116; RESP 16–44; TEMP 36.6; O2SAT 93–97
[2022-05-04 06:39] LABS: Add Manual Diff / Slide Review NO; Basophils Absolute Auto 100 /uL (0-100); Basophils Percent Auto 1.2 % (0-2); Eosinophils Absolute Auto 500 /uL (0-450); Eosinophils Percent Auto 7.5 % (2-4); Hematocrit 38.6 % (36-46); Lymphocytes Absolute Auto 1200 /uL (1100-4500); Lymphocytes Percent Auto 17.9 % (25-40); Mean Corpuscular HGB Conc 33.5 % (30-36); Mean Corpuscular Hemoglobin 28.1 PG (26-34); Mean Corpuscular Volume 83.8 fL (80-100); Monocytes Absolute Auto 600 /uL (0-900); Monocytes Percent Auto 9.2 % (3-14); Neutrophils Absolute Auto 4400 /uL (1500-7000); Neutrophils Percent Auto 64.2 % (50-75); Platelet Count 207 X10^3/uL (150-400); Red Blood Cell Count 4.61 X10^6/uL (4.0-5.2); Red Cell Distribution Width 14.4 % (11.6-14.8); White Blood Cell Count 6.8 X10^3/uL (4.5-11.0)
[2022-05-04 06:46] LABS: BUN Creatinine Ratio 23.4 (6-22); Blood Urea Nitrogen 18 mg/dL (7-17); Calcium 9.6 mg/dL (8.4-10.2); Carbon Dioxide 29 mmol/L (22-32); Chloride 103 mmol/L (98-107); Creatine Kinase 21 U/L (30-135); Estimated Glomerular Filt Rate > 60 mL/min (>60); Glucose 106 mg/dL (80-110); HEMOLYSIS 27 (0-50); Potassium 4.2 mmol/L (3.4-5.1); Sodium 137 mmol/L (137-145)
--- NOTE | 2022-05-04 07:14 | DI.ECHO.S_ITS ---
[facility] +---------+ : : [address] : : : : [id number] : : : : Phone: [phone]+ Echocardiogram Report + + :Name: ELYSIA LACKEY Study Date: 05/04/2022 Height: 60 in : :[facility] ReadingLocation: Weight: 118 lb : : Gender: Female BSA: 1.5 m2 : :: 1935 Age: 86 yrs BP: 197/79 mmHg: :Reason For Study: CHEST PAIN : :Ordering Physician: BENJAMIN, : :EDE Performed By: Mikayla Way : :Referring: EDE ALEXANDER : + + Interpretation Summary 1) Mildly enlarged left ventricle with severely reduced systolic function (EF 25-30%). 2) The basal to mid inferolateral wall, basal to mid inferior wall, and the apex are akinetic.Rest of the LV is moderately hypokinetic. 3) Normal right ventricular size with moderately function. 3) There is moderate to severe aortic stenosis (valve area 0.8cm2, mean gradient 17.5mmHg, severity ratio 0.29). 4) Compared to the Echo done 08/31/2021, LVEF has dropped from 35-40% to 25-30% on this study and aortic stenosis has decreased from mild-moderate to moderate-severe on this study. Procedure: A two-dimensional transthoracic echocardiogram with color flow and Doppler was performed. The study quality was technically adequate. Comparison is made with the echocardiogram of 06/07/2020. The heart rate ranged between 75-83 bpm during the study. Left Ventricle: The left ventricle is mildly dilated. There is mild concentric left ventricular hypertrophy. The ejection fraction is estimated to be 25-30%. The basal to mid inferolateral wall, basal to mid inferior wall, and the apex are akinetic.Rest of the LV is moderately hypokinetic. Diastolic function could not be accurately assessed due to unobtainable data. Right Ventricle: The right ventricle is normal size. Right ventricular systolic function is moderately reduced. Atria: The left atrium is moderately dilated. Right atrial size is normal. There is no Doppler evidence for an interatrial shunt. Mitral Valve: There is mild mitral annular calcification. The mitral valve leaflets are mildly calcified. The mitral valve mean gradient is 4.4 mmHg. There is mild mitral regurgitation. Aortic Valve: The aortic valve is trileaflet. The aortic valve is moderately calcified. There is discrete nodular thickening of the non- coronary cusp. The peak aortic velocity is 2.9 m/sec. The peak aortic velocity on the previous exam was 2.7 m/sec. The aortic valve mean gradient is 18 mmHg. The calculated aortic valve area is 0.82 cm2. There is moderate to severe aortic stenosis. There is mild aortic regurgitation. Tricuspid Valve: The tricuspid valve is normal in structure and function. There is a trace or physiologic amount of tricuspid regurgitation. Pulmonary artery pressures cannot be estimated because of the lack of a measurable TR jet velocity but the IVC suggests a CVP of around 8 mmHg. Pulmonic Valve: The pulmonic valve annulus is dilated. There is mild pulmonic regurgitation. Great Vessels: The aortic root is normal size. The dimensions of the ascending aorta are normal. The ascending aorta is at the upper limits of normal in size. The IVC is of normal diameter and collapses less than 50% with a sniff. This suggests a right atrial pressure of 8 mm Hg. Pericardium/ Pleura There is no pericardial effusion. There is no pleural effusion. MMode/2D Measurements & Calculations LVIDd: 5.7 cm LVOT diam: 2.0 cm LVIDs: 5.1 cm Ao root diam: 3.9 cm FS: 10.5 % asc Aorta Diam: 3.7 cm EPSS: 1.8 cm Ao Arch Diam (Prox Trans): 2.1 cm IVSd: 1.1 cm LVPWd: 1.2 cm LV gonzales. diameter/BSA (cm/m^2): 3.8 LV sys. diameter/BSA (cm/m^2): 3.4 LA A2 area: 26.1 cm2 RA long axis: 4.6 cm LA A4 area: 17.8 cm2 RA area: 11.4 cm2 LA length (vol): 5.7 cm RA vol: 23.7 ml LA vol: 69.4 ml RA : 15.9 ml/m2 LA vol index: 46.5 ml/m2 IVC diam: 0.68 cm RVD1 (basal): 3.0 cm RVD2 (mid): 2.4 cm TAPSE: 1.2 cm Doppler Measurements & Calculations Ao V2 max: 293.5 cm/sec LVOT Max Gurpreet: 76.0 cm/sec Ao V2 mean: 181.7 cm/sec LV V1 max P.3 mmHg Ao max P.5 mmHg LV V1 VTI: 14.5 cm Ao mean P.5 mmHg KENNY(I,D): 0.92 cm2 Ao V2 VTI: 49.5 cm KENNY(V,D): 0.82 cm2 sev ratio: 0.29 KENNY indexed to BSA (cm^2/m^2): 0.62 Med Peak E' Gurpreet: 7.5 cm/sec PA V2 max: 70.8 cm/sec Lat Peak E' Gurpreet: 8.5 cm/sec PA V2 mean: 49.6 cm/sec MVA(VTI): 1.7 cm2 PA mean P.1 mmHg PA pr(Accel): 34.5 mmHg MV V2 mean: 93.5 cm/sec SV(LVOT): 45.6 ml MV mean P.4 mmHg MV V2 VTI: 26.3 cm Reading Physician:10:[id number] AM
[2022-05-04] MEDS: ASPIRIN 81 MG CHEW TAB 324 MG PO (10:35)
[2022-05-04] MEDS: CLOPIDOGREL 75 MG TABLET PO (10:35)
[2022-05-04] MEDS: lisinopriL 20 MG TABLET 40 MG PO (10:36)
[2022-05-04] MEDS: FUROSEMIDE 40 MG TABLET PO (10:37)
[2022-05-04] MEDS: ISOSORBIDE MONONITRATE ER 30 MG TABLET 120 MG PO (10:37)
[2022-05-04] MEDS: dilTIAZem CD 120 MG CAP PO (10:38)
[2022-05-04] MEDS: HEPARIN 5,000 UNIT/ML VIAL 4000 UNIT IV (11:01)
[2022-05-04] MEDS: HEPARIN DRIP 25,000 UNIT/500 ML IV.SOLN 12.846 UNIT IV (11:02)
--- NOTE | 2022-05-04 11:22 | PC.NURSE ---
Verified Heparin Drip currently running at 12.846mls/hr on pump.
[2022-05-04 11:28] LABS: Troponin I 0.025 ng/mL (0.01-0.034)
[2022-05-04] MEDS: NITROGLYCERIN 50 MG/250 ML INFUS..BTL IV (12:12)
--- NOTE | 2022-05-04 13:21 | PC.NURSE ---
Heparin Drip and Nitro Drip continued with PARTHA SRINIVASAN.
== END 2022-05-04 13:37 | disposition short-term general hospital (02) ==
PROVIDERS: Emergency Medicine; Emergency Provider Emergency Medicine
DX: I20.0 Unstable angina (principal); R07.9 Chest pain, unspecified; Z20.822 Contact with and (suspected) exposure to COVID-19
CPT/HCPCS: 36415; 71045; 80048; 80053; 82550; 84484; 85025; 85610; 85730; 87635; 93005; 93010; 93306; 96365; 96366; 96368; 96375; 99285; 99291; C9803; J1644

== ENCOUNTER 2022-05-20 09:45 | Emergency (ER) | payer OTHER, SELFPAY ==
[2021-12-22 01:28] VITALS: BMI 25.3
[2022-05-20] VITALS (37 sets, daily range): BP systolic 127–204; BP diastolic 55–102; PULSE 62–79; RESP 14–47; TEMP 36.3; O2SAT 95–100; BMI 23.0
--- NOTE | 2022-05-20 10:06 | DI.RAD.S_ITS ---
PROCEDURE: XR CHEST 1V INDICATIONS: chest pain TECHNIQUE: One view of the chest was acquired. COMPARISON: [facility], CR, XR CHEST 1V, 05/03/2022, 8:53. FINDINGS: Surgical changes and devices: Patient is status post median sternotomy. Lungs and pleura: There are diffuse interstitial radiopacities bilaterally. No pleural effusion or pneumothorax. Mediastinum: Mediastinal contours appear normal. Heart size is mildly enlarged, as before. The thoracic aorta is tortuous and calcified. Bones and chest wall: No suspicious bony lesions. Overlying soft tissues appear unremarkable. IMPRESSION: 1. Diffuse interstitial radiopacities suggesting pulmonary edema. 2. Mild cardiomegaly. 3. Aortic atherosclerosis. Dictated by: Polly Tyler M.D. on 05/20/2022 at 10:33 Approved by: Polly Tyler M.D. on 05/20/2022 at 10:35
--- NOTE | 2022-05-20 10:08 | ED.CHESTPAIN ---
HPI - Chest Pain <Rima Arturo, - Last Filed: 05/27/22 19:03> General Chief Complaint: Chest Pain Stated Complaint: Pressure in chest Time Seen by Provider: 05/20/22 10:06 History of Present Illness HPI narrative: Patient is a 86-year-old female history of COPD on home oxygen, CHF, CAD supposed to be getting a Left Main stent at [facility] on May 31, presenting today with chest pressure and heaviness. She was transferred up to [facility] on May 03 need for stress test. She had negative troponins at that time. Today she says she woke up around 6:00 a.m. she felt left-sided pressure what she has previously felt. She says she is having increasing shortness of breath while walking to the mailbox which is abnormal. She called cardiac nurse who told her to come into the ED. She is currently resting comfortably he has no more pressure will be she says it is a lot less than what it was previously. Related Data Home Medications Medication Instructions Recorded Confirmed aspirin 81 mg tablet,delayed 81 mg PO QDAY ##0 07/11/17 05/20/22 release multivitamin 1 tab PO DAILY 07/07/18 05/20/22 nitroglycerin 0.4 mg sublingual 0.4 mg sublingual Q5-15M PRN Chest 07/07/18 05/20/22 tablet (Nitrostat) Pain omega 5-hsu-gcu-fish oil 1,000 mg 1,000 mg PO DAILY 07/07/18 05/20/22 (120 mg-180 mg) capsule (Fish Oil) vitamin E 268 mg (400 unit) capsule 400 unit PO DAILY 07/07/18 05/20/22 atorvastatin 20 mg tablet (Lipitor) 40 mg PO QPM 05/04/22 05/20/22 diltiazem HCl 120 mg 120 mg PO QAM 05/04/22 05/20/22 capsule,extended release 24 hr (Cartia XT) furosemide 40 mg tablet 40 mg PO QAM 05/04/22 05/04/22 isosorbide mononitrate 120 mg 120 mg PO QAM 05/04/22 05/20/22 tablet,extended release 24 hr levothyroxine 88 mcg tablet 88 mcg PO QAM 05/04/22 05/20/22 lisinopril 40 mg tablet 20 mg PO QAM 05/04/22 05/20/22 Flonase PRN Dry Nasal Passages 05/20/22 Robitussin DM To Go 10 ml PO PRN Cough 05/20/22 albuterol 90 mcg/actuation aerosol 90 mcg inhalation PRN Shortness Of 05/20/22 inhaler Breath clopidogrel 75 mg tablet 75 mg PO QAM 05/20/22 05/20/22 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 10 mg tablet 10 mg PO TID PRN Muscle Spasm 05/20/22 05/20/22 ipratropium 0.5 mg-albuterol 3 mg ml inhalation PRN Shortness Of 05/20/22 (2.5 mg base)/3 mL nebulization Breath Or Wheezing soln metoprolol succinate 25 mg 25 mg PO DAILY 05/20/22 05/20/22 tablet,extended release 24 hr torsemide 20 mg tablet 20 mg PO DAILY 05/20/22 05/20/22 Allergies Allergy/AdvReac Type Severity Reaction Status Date / Time acarbose Allergy Intermediate Abdominal Verified 05/22/22 18:34 Pain amlodipine Allergy Intermediate Verified 05/22/22 18:34 chlorthalidone Allergy Intermediate Redness of Verified 05/22/22 18:34 Skin doxazosin [From Cardura] Allergy Intermediate Rash Verified 05/22/22 18:34 doxycycline Allergy Intermediate Rash Verified 05/22/22 18:34 gemfibrozil Allergy Intermediate Rash Verified 05/22/22 18:34 levofloxacin Allergy Intermediate Rash Verified 05/22/22 18:34 losartan Allergy Intermediate Rash Verified 05/22/22 18:34 montelukast [From Singulair] Allergy Intermediate Difficulty Verified 05/22/22 18:34 Breathing nifedipine Allergy Intermediate Chills Verified 05/22/22 18:34 Sulfa (Sulfonamide Allergy Intermediate rash Verified 05/22/22 18:34 Antibiotics) sulfamethoxazole Allergy Intermediate Rash Verified 05/22/22 18:34 [From Bactrim] trimethoprim [From Bactrim] Allergy Intermediate Rash Verified 05/22/22 18:34 budesonide [From Symbicort] Allergy Mild Anxiety Verified 05/22/22 18:34 carvedilol Allergy Mild Rash Verified 05/22/22 18:34 choline fenofibrate Allergy Mild Gastrointestinal Verified 05/22/22 18:34 [From Trilipix] Upset formoterol [From Symbicort] Allergy Mild Anxiety Verified 05/22/22 18:34 metoprolol AdvReac Intermediate Verified 05/22/22 18:34 Review of Systems <Rima Morris DO - Last Filed: 05/27/22 19:03> Review of Systems Narrative: GENERAL: Denies chills, fatigue, malaise, fever, sweats, travel HEENT: Denies sinus pain, ear pain, sore throat, difficulty swallowing, neck pain RESPIRATORY: See HPI CARDIOVASCULAR: See HPI GASTROINTESTINAL: Denies nausea, vomiting, abdominal pain, diarrhea, constipation, melena. : Denies dysuria, frequency, incontinence, hematuria, urinary retention, flank pain. MUSCULOSKELETAL: Denies weakness, joint pain, or bony pain SKIN: No rash, no erythema, no pruritus NEUROLOGIC: Denies weakness, dizziness, headache, numbness, change in speech, confusion PSYCHIATRIC: No concerning psychosocial issues. 12 point review of systems is negative except for those stated above and HPI Patient History <Rima Morris DO - Last Filed: 05/27/22 19:03> Medical History (Updated 05/22/22 @ 06:44 by Leland Lal DO) Aneurysm of infrarenal abdominal aorta Bilateral carpal tunnel syndrome CAD (coronary artery disease) COPD (chronic obstructive pulmonary disease) with emphysema Elevated TSH HTN (hypertension) Hyperlipidemia Unstable angina Valvular heart disease Surgical History H/O hysterectomy with oophorectomy H/O three vessel coronary artery bypass Hx of heart artery stent Status post cholecystectomy Family History Father Lung cancer Mother COPD (chronic obstructive pulmonary disease) Social History household members: family and children Smoking Status: Former smoker alcohol intake: never Smoking Status: Former smoker tobacco type: cigarettes alcohol intake frequency: 0-2 drinks per day Substance Use Type: does not use Exam <Rima Morris DO - Last Filed: 05/27/22 19:03> Initial Vital Signs Initial Vital Signs: Vital Signs Temperature 97.4 F L 05/20/22 10:08 Pulse Rate 67 05/20/22 10:08 Respiratory Rate 22 05/20/22 10:08 Blood Pressure 180/77 H 05/20/22 10:08 Pulse Oximetry 96 05/20/22 10:08 Oxygen Delivery Method 05/20/22 10:08 Oxygen Flow Rate 2 05/20/22 10:08 GENERAL: Alert pleasant 86-year-old female and in no acute distress. HEENT: Head atraumatic,EOMI, pupils reactive, face symmetric, moist mucous membranes CARDIOVASCULAR: Regular rate and rhythm without murmurs, rubs or gallops. RESPIRATORY: Breath sounds equal bilaterally, no wheezes rales or rhonchi. ABDOMEN: Soft, nontender. Normoactive bowel sounds all 4 quadrants. No guarding or rebound. EXTREMITIES: Normal range of motion, no clubbing or edema. Neurovascularly intact NEUROLOGICAL: Alert and oriented x4.Normal gait and speech. SKIN: Warm, dry, no laceration, no petechiae, no rashes or lesions. <Leland Lal DO - Last Filed: 05/22/22 23:48> Initial Vital Signs Initial Vital Signs: Vital Signs Temperature 97.4 F L 05/20/22 10:08 Pulse Rate 67 05/20/22 10:08 Respiratory Rate 22 05/20/22 10:08 Blood Pressure 180/77 H 05/20/22 10:08 Pulse Oximetry 96 05/20/22 10:08 Oxygen Delivery Method 05/20/22 10:08 Oxygen Flow Rate 2 05/20/22 10:08 <Erinn Nichols MD - Last Filed: 05/23/22 05:07> Initial Vital Signs Initial Vital Signs: Vital Signs Temperature 97.4 F L 05/20/22 10:08 Pulse Rate 67 05/20/22 10:08 Respiratory Rate 22 05/20/22 10:08 Blood Pressure 180/77 H 05/20/22 10:08 Pulse Oximetry 96 05/20/22 10:08 Oxygen Delivery Method 05/20/22 10:08 Oxygen Flow Rate 2 05/20/22 10:08 Course <Rima Morris DO - Last Filed: 05/27/22 19:03> Orders Ordered: Discontinued Medications Aspirin (Aspirin 81 Mg Chew Tab) 324 mg PO NOW ONE Stop: 05/20/22 10:07 Last Admin: 05/20/22 10:24 Dose: 324 mg Documented By: NR Atorvastatin Calcium (Atorvastatin 20 Mg Tablet) 40 mg PO NOW ONE Stop: 05/20/22 22:50 Last Admin: 05/20/22 23:47 Dose: 40 mg Documented By: TALYA Atorvastatin Calcium (Atorvastatin 20 Mg Tablet) 40 mg PO DAILY [facility] Last Admin: 05/22/22 08:58 Dose: 40 mg Documented By: JING Diltiazem HCl (Diltiazem Cd 120 Mg Cap) 120 mg PO NOW ONE Stop: 05/20/22 22:50 Last Admin: 05/20/22 23:48 Dose: 120 mg Documented By: TALYA Diltiazem HCl (Diltiazem Cd 120 Mg Cap) 120 mg PO NOW ONE Stop: 05/22/22 09:01 Last Admin: 05/22/22 08:58 Dose: 120 mg Documented By: JING Heparin Sodium (Porcine) (Heparin 5,000 Unit/Ml Vial) 4,000 unit IV NOW ONE Stop: 05/21/22 04:49 Last Admin: 05/21/22 05:10 Dose: 4,000 unit Documented By: TALYA Sodium Chloride (Normal Saline 0.9%) 1,000 mls @ 150 mls/hr IV CONT ROLANDA Last Infusion: 05/21/22 11:55 Dose: 0 mls/hr Documented By: Infusion: 05/21/22 02:00 Dose: 0 mls/hr Documented By: Admin: 05/20/22 10:24 Dose: 150 mls/hr Documented By: LINDA Heparin Sodium/Dextrose (Heparin Drip) 25,000 unit in 500 mls @ 12.846 mls/hr IV CONT ROLANDA; Protocol Last Titration: 05/22/22 00:33 Dose: 8.22 units/kg/hr, 8.8 mls/hr Documented By: Titration: 05/21/22 19:36 Dose: 7.29 units/kg/hr, 7.8 mls/hr Documented By: Titration: 05/21/22 13:25 Dose: 6.35 units/kg/hr, 6.8 mls/hr Documented By: Titration: 05/21/22 12:11 Dose: 0 units/kg/hr, 0 mls/hr Documented By: AMDarcy Admin: 05/21/22 05:19 Dose: 12 units/kg/hr, 12.846 mls/hr Documented By: TALYA Isosorbide Mononitrate (Isosorbide Mononitrate Er 30 Mg Tablet) 120 mg PO NOW ONE Stop: 05/22/22 18:41 Last Admin: 05/22/22 18:53 Dose: 120 mg Documented By: XIOMARA Isosorbide Mononitrate (Isosorbide Mononitrate Er 30 Mg Tablet) 120 mg PO DAILY [facility] Lisinopril (Lisinopril 20 Mg Tablet) 20 mg PO NOW ONE Stop: 05/21/22 06:01 Last Admin: 05/21/22 07:04 Dose: 20 mg Documented By: TALYA Lisinopril (Lisinopril 20 Mg Tablet) 20 mg PO DAILY [facility] Last Admin: 05/22/22 08:59 Dose: 20 mg Documented By: JING Metoprolol Succinate (Metoprolol Er 25 Mg Tablet) 25 mg PO DAILY [facility] Last Admin: 05/22/22 08:58 Dose: 25 mg Documented By: JING Nitroglycerin (Nitroglycerin 0.4 Mg Sl Tab) 0.4 mg SL [id number] PRN PRN Reason: Chest Pain Last Admin: 05/21/22 07:07 Dose: 0.4 mg Documented By: Admin: 05/21/22 07:03 Dose: 0.4 mg Documented By: Admin: 05/21/22 06:58 Dose: 0.4 mg Documented By: VADIM Albuterol Inhaler 2 each PO BID [facility] Torsemide (Torsemide 10 Mg Tablet) 20 mg PO DAILY [facility] Last Admin: 05/22/22 08:59 Dose: 20 mg Documented By: JING Vital Signs Vital signs: Vital Signs - 8 hr 05/22/22 21:30 05/22/22 22:00 05/22/22 22:00 Pulse Rate 57 L 53 L Respiratory Rate 26 H 25 H Blood Pressure 153/82 H Pulse Oximetry 97 96 Oxygen Delivery Method 05/22/22 22:30 05/22/22 23:00 05/22/22 23:00 Pulse Rate 52 L 50 L Respiratory Rate 23 21 Blood Pressure 144/65 H Pulse Oximetry 97 97 Oxygen Delivery Method Room Air Room Air <Leland Lal DO - Last Filed: 05/22/22 23:48> Orders Ordered: Discontinued Medications Aspirin (Aspirin 81 Mg Chew Tab) 324 mg PO NOW ONE Stop: 05/20/22 10:07 Last Admin: 05/20/22 10:24 Dose: 324 mg Documented By: LINDA Atorvastatin Calcium (Atorvastatin 20 Mg Tablet) 40 mg PO NOW ONE Stop: 05/20/22 22:50 Last Admin: 05/20/22 23:47 Dose: 40 mg Documented By: TALYA Atorvastatin Calcium (Atorvastatin 20 Mg Tablet) 40 mg PO DAILY [facility] Last Admin: 05/22/22 08:58 Dose: 40 mg Documented By: JING Diltiazem HCl (Diltiazem Cd 120 Mg Cap) 120 mg PO NOW ONE Stop: 05/20/22 22:50 Last Admin: 05/20/22 23:48 Dose: 120 mg Documented By: TALYA Diltiazem HCl (Diltiazem Cd 120 Mg Cap) 120 mg PO NOW ONE Stop: 05/22/22 09:01 Last Admin: 05/22/22 08:58 Dose: 120 mg Documented By: JING Heparin Sodium (Porcine) (Heparin 5,000 Unit/Ml Vial) 4,000 unit IV NOW ONE Stop: 05/21/22 04:49 Last Admin: 05/21/22 05:10 Dose: 4,000 unit Documented By: TALYA Sodium Chloride (Normal Saline 0.9%) 1,000 mls @ 150 mls/hr IV CONT ROLANDA Last Infusion: 05/21/22 11:55 Dose: 0 mls/hr Documented By: Infusion: 05/21/22 02:00 Dose: 0 mls/hr Documented By: Admin: 05/20/22 10:24 Dose: 150 mls/hr Documented By: LINDA Heparin Sodium/Dextrose (Heparin Drip) 25,000 unit in 500 mls @ 12.846 mls/hr IV CONT ROLANDA; Protocol Last Titration: 05/22/22 00:33 Dose: 8.22 units/kg/hr, 8.8 mls/hr Documented By: Titration: 05/21/22 19:36 Dose: 7.29 units/kg/hr, 7.8 mls/hr Documented By: Titration: 05/21/22 13:25 Dose: 6.35 units/kg/hr, 6.8 mls/hr Documented By: Titration: 05/21/22 12:11 Dose: 0 units/kg/hr, 0 mls/hr Documented By: Admin: 05/21/22 05:19 Dose: 12 units/kg/hr, 12.846 mls/hr Documented By: TALYA Isosorbide Mononitrate (Isosorbide Mononitrate Er 30 Mg Tablet) 120 mg PO NOW ONE Stop: 05/22/22 18:41 Last Admin: 05/22/22 18:53 Dose: 120 mg Documented By: XIOMARA Isosorbide Mononitrate (Isosorbide Mononitrate Er 30 Mg Tablet) 120 mg PO DAILY [facility] Lisinopril (Lisinopril 20 Mg Tablet) 20 mg PO NOW ONE Stop: 05/21/22 06:01 Last Admin: 05/21/22 07:04 Dose: 20 mg Documented By: TALYA Lisinopril (Lisinopril 20 Mg Tablet) 20 mg PO DAILY [facility] Last Admin: 05/22/22 08:59 Dose: 20 mg Documented By: JING Metoprolol Succinate (Metoprolol Er 25 Mg Tablet) 25 mg PO DAILY [facility] Last Admin: 05/22/22 08:58 Dose: 25 mg Documented By: JING Nitroglycerin (Nitroglycerin 0.4 Mg Sl Tab) 0.4 mg SL [id number] PRN PRN Reason: Chest Pain Last Admin: 05/21/22 07:07 Dose: 0.4 mg Documented By: Admin: 05/21/22 07:03 Dose: 0.4 mg Documented By: Admin: 05/21/22 06:58 Dose: 0.4 mg Documented By: VADIM Albuterol Inhaler 2 each PO BID [facility] Torsemide (Torsemide 10 Mg Tablet) 20 mg PO DAILY [facility] Last Admin: 05/22/22 08:59 Dose: 20 mg Documented By: JING Vital Signs Vital signs: Vital Signs - 8 hr 05/22/22 21:30 05/22/22 22:00 05/22/22 22:00 Pulse Rate 57 L 53 L Respiratory Rate 26 H 25 H Blood Pressure 153/82 H Pulse Oximetry 97 96 Oxygen Delivery Method 05/22/22 22:30 05/22/22 23:00 05/22/22 23:00 Pulse Rate 52 L 50 L Respiratory Rate 23 21 Blood Pressure 144/65 H Pulse Oximetry 97 97 Oxygen Delivery Method Room Air Room Air <Erinn Nichols MD - Last Filed: 05/23/22 05:07> Orders Ordered: Discontinued Medications Aspirin (Aspirin 81 Mg Chew Tab) 324 mg PO NOW ONE Stop: 05/20/22 10:07 Last Admin: 05/20/22 10:24 Dose: 324 mg Documented By: LINDA Atorvastatin Calcium (Atorvastatin 20 Mg Tablet) 40 mg PO NOW ONE Stop: 05/20/22 22:50 Last Admin: 05/20/22 23:47 Dose: 40 mg Documented By: TALYA Atorvastatin Calcium (Atorvastatin 20 Mg Tablet) 40 mg PO DAILY [facility] Last Admin: 05/22/22 08:58 Dose: 40 mg Documented By: JING Diltiazem HCl (Diltiazem Cd 120 Mg Cap) 120 mg PO NOW ONE Stop: 05/20/22 22:50 Last Admin: 05/20/22 23:48 Dose: 120 mg Documented By: TALYA Diltiazem HCl (Diltiazem Cd 120 Mg Cap) 120 mg PO NOW ONE Stop: 05/22/22 09:01 Last Admin: 05/22/22 08:58 Dose: 120 mg Documented By: JING Heparin Sodium (Porcine) (Heparin 5,000 Unit/Ml Vial) 4,000 unit IV NOW ONE Stop: 05/21/22 04:49 Last Admin: 05/21/22 05:10 Dose: 4,000 unit Documented By: TALYA Sodium Chloride (Normal Saline 0.9%) 1,000 mls @ 150 mls/hr IV CONT [facility] Last Infusion: 05/21/22 11:55 Dose: 0 mls/hr Documented By: Infusion: 05/21/22 02:00 Dose: 0 mls/hr Documented By: Admin: 05/20/22 10:24 Dose: 150 mls/hr Documented By: LINDA Heparin Sodium/Dextrose (Heparin Drip) 25,000 unit in 500 mls @ 12.846 mls/hr IV CONT ROLANDA; Protocol Last Titration: 05/22/22 00:33 Dose: 8.22 units/kg/hr, 8.8 mls/hr Documented By: Titration: 05/21/22 19:36 Dose: 7.29 units/kg/hr, 7.8 mls/hr Documented By: Titration: 05/21/22 13:25 Dose: 6.35 units/kg/hr, 6.8 mls/hr Documented By: Titration: 05/21/22 12:11 Dose: 0 units/kg/hr, 0 mls/hr Documented By: Admin: 05/21/22 05:19 Dose: 12 units/kg/hr, 12.846 mls/hr Documented By: TALYA Isosorbide Mononitrate (Isosorbide Mononitrate Er 30 Mg Tablet) 120 mg PO NOW ONE Stop: 05/22/22 18:41 Last Admin: 05/22/22 18:53 Dose: 120 mg Documented By: XIOMARA Isosorbide Mononitrate (Isosorbide Mononitrate Er 30 Mg Tablet) 120 mg PO DAILY [facility] Lisinopril (Lisinopril 20 Mg Tablet) 20 mg PO NOW ONE Stop: 05/21/22 06:01 Last Admin: 05/21/22 07:04 Dose: 20 mg Documented By: TALYA Lisinopril (Lisinopril 20 Mg Tablet) 20 mg PO DAILY [facility] Last Admin: 05/22/22 08:59 Dose: 20 mg Documented By: JING Metoprolol Succinate (Metoprolol Er 25 Mg Tablet) 25 mg PO DAILY [facility] Last Admin: 05/22/22 08:58 Dose: 25 mg Documented By: JING Nitroglycerin (Nitroglycerin 0.4 Mg Sl Tab) 0.4 mg SL [id number] PRN PRN Reason: Chest Pain Last Admin: 05/21/22 07:07 Dose: 0.4 mg Documented By: Admin: 05/21/22 07:03 Dose: 0.4 mg Documented By: Admin: 05/21/22 06:58 Dose: 0.4 mg Documented By: VADIM Albuterol Inhaler 2 each PO BID [facility] Torsemide (Torsemide 10 Mg Tablet) 20 mg PO DAILY [facility] Last Admin: 05/22/22 08:59 Dose: 20 mg Documented By: JING Vital Signs Vital signs: Vital Signs - 8 hr 05/22/22 21:30 05/22/22 22:00 05/22/22 22:00 Pulse Rate 57 L 53 L Respiratory Rate 26 H 25 H Blood Pressure 153/82 H Pulse Oximetry 97 96 Oxygen Delivery Method 05/22/22 22:30 05/22/22 23:00 05/22/22 23:00 Pulse Rate 52 L 50 L Respiratory Rate 23 21 Blood Pressure 144/65 H Pulse Oximetry 97 97 Oxygen Delivery Method Room Air Room Air MDM - Chest Pain <Rima Morris, DO - Last Filed: 05/27/22 19:03> Lab Data Result diagrams: 05/22/22 05:20 05/22/22 05:20 Labs: Lab Results 05/20/22 05/20/22 05/20/22 Range/Units 10:09 10:09 10:09 WBC 7.1 (4.5-11.0) X10^3/uL RBC 4.66 (4.0-5.2) X10^6/uL Hgb 13.3 (12.0-16.0) g/dL Hct 38.9 (36-46) % MCV 83.5 (80-100) fL MCH 28.5 (26-34) PG MCHC 34.1 (30-36) % RDW 15.0 H (11.6-14.8) % Plt Count 227 (150-400) X10^3/uL Neut % (Auto) 68.1 (50-75) % Lymph % (Auto) 16.2 L (25-40) % [place] % (Auto) 7.9 (3-14) % Eos % (Auto) 6.8 H (2-4) % Baso % (Auto) 1.0 (0-2) % Neut # (Auto) 4800 (9052-7697) /uL Lymph # (Auto) 1100 (5119-5022) /uL [place] # (Auto) 600 (0-900) /uL Eos # (Auto) 500 H (0-450) /uL Baso # (Auto) 100 (0-100) /uL PT 11.7 (10.1-12.7) SECONDS INR 1.0 (0.9-1.3) APTT 31 (26-36) SECONDS Sodium 137 (137-145) mmol/L Potassium 4.1 (3.4-5.1) mmol/L Chloride 99 (98-107) mmol/L Carbon Dioxide 31 (22-32) mmol/L BUN 18 H (7-17) mg/dL Creatinine 1.03 (0.52-1.04) mg/dL Estimated GFR 53 L (>60) mL/min BUN/Creatinine Ratio 17.5 (6-22) Glucose 100 (80-110) mg/dL Calcium 9.6 (8.4-10.2) mg/dL Total Bilirubin 1.4 H (0.2-1.3) mg/dL AST 29 (14-36) IU/L ALT 16 (<35) IU/L Alkaline Phosphatase 65 (38-126) U/L Total Creatine Kinase 26 L (30-135) U/L CK-MB (CK-2) TNP CK-MB (CK-2) Rel Index TNP Troponin I 0.035 H (0.01-0.034) ng/mL NT-Pro-B Natriuret Pep (<450) pg/mL Total Protein 6.6 (6.3-8.2) g/dL Albumin 3.7 (3.5-5.0) g/dL Globulin 2.9 (1.7-4.1) g/dL Albumin/Globulin Ratio 1.3 (1.0-2.8) Lipase 58 (23-300) U/L SARS-CoV-2 (PCR) (Negative) 05/20/22 05/20/22 05/20/22 Range/Units 10:09 12:21 17:50 WBC (4.5-11.0) X10^3/uL RBC (4.0-5.2) X10^6/uL Hgb (12.0-16.0) g/dL Hct (36-46) % MCV (80-100) fL MCH (26-34) PG MCHC (30-36) % RDW (11.6-14.8) % Plt Count (150-400) X10^3/uL Neut % (Auto) (50-75) % Lymph % (Auto) (25-40) % [place] % (Auto) (3-14) % Eos % (Auto) (2-4) % Baso % (Auto) (0-2) % Neut # (Auto) (2949-5205) /uL Lymph # (Auto) (0878-0409) /uL [place] # (Auto) (0-900) /uL Eos # (Auto) (0-450) /uL Baso # (Auto) (0-100) /uL PT (10.1-12.7) SECONDS INR (0.9-1.3) APTT (26-36) SECONDS Sodium (137-145) mmol/L Potassium (3.4-5.1) mmol/L Chloride (98-107) mmol/L Carbon Dioxide (22-32) mmol/L BUN (7-17) mg/dL Creatinine (0.52-1.04) mg/dL Estimated GFR (>60) mL/min BUN/Creatinine Ratio (6-22) Glucose (80-110) mg/dL Calcium (8.4-10.2) mg/dL Total Bilirubin (0.2-1.3) mg/dL AST (14-36) IU/L ALT (<35) IU/L Alkaline Phosphatase (38-126) U/L Total Creatine Kinase (30-135) U/L CK-MB (CK-2) CK-MB (CK-2) Rel Index Troponin I 0.030 (0.01-0.034) ng/mL NT-Pro-B Natriuret Pep 447 (<450) pg/mL Total Protein (6.3-8.2) g/dL Albumin (3.5-5.0) g/dL Globulin (1.7-4.1) g/dL Albumin/Globulin Ratio (1.0-2.8) Lipase (23-300) U/L SARS-CoV-2 (PCR) Negative (Negative) 05/21/22 05/21/22 05/21/22 Range/Units 04:03 08:40 08:40 WBC 5.7 (4.5-11.0) X10^3/uL RBC 4.45 (4.0-5.2) X10^6/uL Hgb 12.6 (12.0-16.0) g/dL Hct 37.3 (36-46) % MCV 83.8 (80-100) fL MCH 28.4 (26-34) PG MCHC 33.9 (30-36) % RDW 14.8 (11.6-14.8) % Plt Count 197 (150-400) X10^3/uL Neut % (Auto) 65.8 (50-75) % Lymph % (Auto) 16.6 L (25-40) % [place] % (Auto) 8.3 (3-14) % Eos % (Auto) 8.0 H (2-4) % Baso % (Auto) 1.3 (0-2) % Neut # (Auto) 3800 (5010-2826) /uL Lymph # (Auto) 1000 L (4163-1266) /uL [place] # (Auto) 500 (0-900) /uL Eos # (Auto) 500 H (0-450) /uL Baso # (Auto) 100 (0-100) /uL PT (10.1-12.7) SECONDS INR (0.9-1.3) APTT (26-36) SECONDS Sodium 138 (137-145) mmol/L Potassium 3.9 (3.4-5.1) mmol/L Chloride 103 (98-107) mmol/L Carbon Dioxide 30 (22-32) mmol/L BUN 14 (7-17) mg/dL Creatinine 0.80 (0.52-1.04) mg/dL Estimated GFR > 60 (>60) mL/min BUN/Creatinine Ratio 17.5 (6-22) Glucose 92 (80-110) mg/dL Calcium 9.1 (8.4-10.2) mg/dL Total Bilirubin (0.2-1.3) mg/dL AST (14-36) IU/L ALT (<35) IU/L Alkaline Phosphatase (38-126) U/L Total Creatine Kinase 28 L (30-135) U/L CK-MB (CK-2) TNP CK-MB (CK-2) Rel Index TNP Troponin I 0.222 H* 0.251 H* (0.01-0.034) ng/mL NT-Pro-B Natriuret Pep (<450) pg/mL Total Protein (6.3-8.2) g/dL Albumin (3.5-5.0) g/dL Globulin (1.7-4.1) g/dL Albumin/Globulin Ratio (1.0-2.8) Lipase (23-300) U/L SARS-CoV-2 (PCR) (Negative) 05/21/22 05/21/22 05/21/22 Range/Units 11:28 17:39 23:43 WBC (4.5-11.0) X10^3/uL RBC (4.0-5.2) X10^6/uL Hgb (12.0-16.0) g/dL Hct (36-46) % MCV (80-100) fL MCH (26-34) PG MCHC (30-36) % RDW (11.6-14.8) % Plt Count (150-400) X10^3/uL Neut % (Auto) (50-75) % Lymph % (Auto) (25-40) % [place] % (Auto) (3-14) % Eos % (Auto) (2-4) % Baso % (Auto) (0-2) % Neut # (Auto) (8042-0653) /uL Lymph # (Auto) (7015-0688) /uL [place] # (Auto) (0-900) /uL Eos # (Auto) (0-450) /uL Baso # (Auto) (0-100) /uL PT (10.1-12.7) SECONDS INR (0.9-1.3) APTT 176 H* D 39 H D 44 H (26-36) SECONDS Sodium (137-145) mmol/L Potassium (3.4-5.1) mmol/L Chloride (98-107) mmol/L Carbon Dioxide (22-32) mmol/L BUN (7-17) mg/dL Creatinine (0.52-1.04) mg/dL Estimated GFR (>60) mL/min BUN/Creatinine Ratio (6-22) Glucose (80-110) mg/dL Calcium (8.4-10.2) mg/dL Total Bilirubin (0.2-1.3) mg/dL AST (14-36) IU/L ALT (<35) IU/L Alkaline Phosphatase (38-126) U/L Total Creatine Kinase (30-135) U/L CK-MB (CK-2) CK-MB (CK-2) Rel Index Troponin I (0.01-0.034) ng/mL NT-Pro-B Natriuret Pep (<450) pg/mL Total Protein (6.3-8.2) g/dL Albumin (3.5-5.0) g/dL Globulin (1.7-4.1) g/dL Albumin/Globulin Ratio (1.0-2.8) Lipase (23-300) U/L SARS-CoV-2 (PCR) (Negative) 05/22/22 05/22/22 05/22/22 Range/Units 05:20 05:20 05:20 WBC 5.2 (4.5-11.0) X10^3/uL RBC 4.04 (4.0-5.2) X10^6/uL Hgb 11.4 L (12.0-16.0) g/dL Hct 33.6 L (36-46) % MCV 83.3 (80-100) fL MCH 28.2 (26-34) PG MCHC 33.9 (30-36) % RDW 14.8 (11.6-14.8) % Plt Count 189 (150-400) X10^3/uL Neut % (Auto) 58.3 (50-75) % Lymph % (Auto) 23.9 L (25-40) % [place] % (Auto) 8.7 (3-14) % Eos % (Auto) 8.4 H (2-4) % Baso % (Auto) 0.7 (0-2) % Neut # (Auto) 3000 (4025-2122) /uL Lymph # (Auto) 1200 (8566-1514) /uL [place] # (Auto) 500 (0-900) /uL Eos # (Auto) 400 (0-450) /uL Baso # (Auto) 0 (0-100) /uL PT (10.1-12.7) SECONDS INR (0.9-1.3) APTT 48 H (26-36) SECONDS Sodium 138 (137-145) mmol/L Potassium 3.9 (3.4-5.1) mmol/L Chloride 105 (98-107) mmol/L Carbon Dioxide 27 (22-32) mmol/L BUN 9 (7-17) mg/dL Creatinine 0.79 (0.52-1.04) mg/dL Estimated GFR > 60 (>60) mL/min BUN/Creatinine Ratio 11.4 (6-22) Glucose 106 (80-110) mg/dL Calcium 8.8 (8.4-10.2) mg/dL Total Bilirubin (0.2-1.3) mg/dL AST (14-36) IU/L ALT (<35) IU/L Alkaline Phosphatase (38-126) U/L Total Creatine Kinase 25 L (30-135) U/L CK-MB (CK-2) TNP CK-MB (CK-2) Rel Index TNP Troponin I 0.145 H* (0.01-0.034) ng/mL NT-Pro-B Natriuret Pep (<450) pg/mL Total Protein (6.3-8.2) g/dL Albumin (3.5-5.0) g/dL Globulin (1.7-4.1) g/dL Albumin/Globulin Ratio (1.0-2.8) Lipase (23-300) U/L SARS-CoV-2 (PCR) (Negative) Imaging Data Chest x-ray: Radiologist's Impression: XRay Report Signed Patient: Lindsay Aguilar MR#: [id number] : 1935 Acct:[id number] Age/Sex: 86 / F Date of Service: 05/20/22 Loc: ED Accession Number: [id number] ?? Procedure: XR chest 1V Ordering Provider: Rima Morris D.O. PROCEDURE:? XR CHEST 1V ? INDICATIONS:? chest pain ? TECHNIQUE:? One view of the chest was acquired.? ? COMPARISON:? [facility], , XR CHEST 1V, 05/03/2022, 8:53. ? FINDINGS:? ? Surgical changes and devices:? Patient is status post median sternotomy. ? Lungs and pleura:? There are diffuse interstitial radiopacities bilaterally.? No pleural effusion or pneumothorax. ? Mediastinum:? Mediastinal contours appear normal.? Heart size is mildly enlarged, as before.? The thoracic aorta is tortuous and calcified. ? Bones and chest wall:? No suspicious bony lesions.? Overlying soft tissues appear unremarkable.? ? IMPRESSION:? ? 1. Diffuse interstitial radiopacities suggesting pulmonary edema. ? 2. Mild cardiomegaly. ? 3. Aortic atherosclerosis.? ? ? Dictated by: Polly Tyler M.D. on 05/20/2022 at 10:33 ? ? ECG Data Interpretation: EKG 1. Sinus rhythm rate 66 significant T-wave inversion ST depression in lead 1, aVL which is up the same from previous EKG May [address] changes sinus rhythm no new changes MDM Narrative Medical decision making narrative: Patient is having chest pressure she needs left main stent found at [facility]. Finally did speak with Dr. Feng cardiology at [facility] who states that with her ongoing symptoms and known disease she needs a stent placed sooner rather than later. Recommends not discharging her home recommend sending her they unfortunately do not have any beds available he states recommend transferring to higher level of care with they can possibly do a CABG as well. She has been placed on list . [facility] does have beds available but unable to provide care that is needed Patient signed out to Dr. Lal for further management 1999(Lukasz) Patient received in sign out from [Arturo]. I have reviewed the clinical course and performed an independent history and physical exam. Patient resting comfortably. No beds available at [place], [facility], [facility], , calls into [facility] 0430 -troponin now positive, heparin ordered. Patient resting comfortably no pain, pressure or squeezing 05/21/22 8am arturo Patient signed out to me by Dr. Lal. I have seen evaluated patient myself. This started having chest pressure last evening troponin now positive 0.2 EKG remains unchanged with persistent ST depression in lead 1 and aVL. She has known main disease. She had 3 nitroglycerin which seemed to help her pressure she is no longer having any. She continues to be on many to list. She is on list. Merged With [facility] Dr. Ascencio was contacted this morning and states that needs to go to larger facility for left main disease. GENERAL: Alert pleasant 86-year-old female CARDIOVASCULAR: peripheral pulses in tact, cap refill <2 sec RESPIRATORY: No respiratory distress, speaks in full sentences without difficulty EXTREMITIES: Normal range of motion, no clubbing or edema. Neurovascularly intact NEUROLOGICAL: Cranial nerves II through XII grossly intact. Normal gait and speech. SKIN: Warm, dry, no petechiae, no rashes or lesions. a/p 1. Coronary artery disease, left main, positive troponin -heparin -trend troponin -Just had echo, 1999 Dr Kelley, cArdiology at [facility], at this time strongly recommends that cardiology group that was previously taking care for at [facility] continue her care. Patient is not on [facility] hospital list without accepting Cardiology signed out to Dr. Lukasz Nichols 11:55am Patient is seen and examined Currently pain-free on heparin stable numbers with next PTT due tomorrow No complaints Vitals: Blood pressure 175/74, pulse is 60, respiratory rate of 27, 98.5, 96% on 2 L nasal cannula Chest: Lungs are clear Cardiac: Regular rate and rhythm Abdomen: Soft nontender Impression and plan NSTEMI: Troponin seems to be trending down with a max at 0.251 yesterday. Today is 0.145. She remains on heparin. She has a known left main lesion and will need to be transferred No beds are available we continue to make multiple phone calls. [facility] is involved. Patient and her daughter updated. Dr Nichols 320pm Discussed with Dr Connor, Caridology at [facility]. Would like to transfer, discussion with house furnishings supervisor and will call back. 545pm discussed care with house furnishings supervisor. Coating Inspector would very much like to keep her and have her come up to [facility]. There are absolutely no beds available. Will plan on boarding her again overnight with continued heparin drip with anticipation of transfer to [facility] for PCI intervention tomorrow. 1900 - patient received back in signout. Patient resting comfortably and is currently absent of chest pain. 2330 - call from hospitalist at ([facility]) happy to accept patient in transfer Eventual transfer to [facility], first bed available <Leland Lal DO - Last Filed: 05/22/22 23:48> Lab Data Labs: Lab Results 05/20/22 05/20/22 05/20/22 Range/Units 10:09 10:09 10:09 WBC 7.1 (4.5-11.0) X10^3/uL RBC 4.66 (4.0-5.2) X10^6/uL Hgb 13.3 (12.0-16.0) g/dL Hct 38.9 (36-46) % MCV 83.5 (80-100) fL MCH 28.5 (26-34) PG MCHC 34.1 (30-36) % RDW 15.0 H (11.6-14.8) % Plt Count 227 (150-400) X10^3/uL Neut % (Auto) 68.1 (50-75) % Lymph % (Auto) 16.2 L (25-40) % [place] % (Auto) 7.9 (3-14) % Eos % (Auto) 6.8 H (2-4) % Baso % (Auto) 1.0 (0-2) % Neut # (Auto) 4800 (5796-7391) /uL Lymph # (Auto) 1100 (4792-3637) /uL [place] # (Auto) 600 (0-900) /uL Eos # (Auto) 500 H (0-450) /uL Baso # (Auto) 100 (0-100) /uL PT 11.7 (10.1-12.7) SECONDS INR 1.0 (0.9-1.3) APTT 31 (26-36) SECONDS Sodium 137 (137-145) mmol/L Potassium 4.1 (3.4-5.1) mmol/L Chloride 99 (98-107) mmol/L Carbon Dioxide 31 (22-32) mmol/L BUN 18 H (7-17) mg/dL Creatinine 1.03 (0.52-1.04) mg/dL Estimated GFR 53 L (>60) mL/min BUN/Creatinine Ratio 17.5 (6-22) Glucose 100 (80-110) mg/dL Calcium 9.6 (8.4-10.2) mg/dL Total Bilirubin 1.4 H (0.2-1.3) mg/dL AST 29 (14-36) IU/L ALT 16 (<35) IU/L Alkaline Phosphatase 65 (38-126) U/L Total Creatine Kinase 26 L (30-135) U/L CK-MB (CK-2) TNP CK-MB (CK-2) Rel Index TNP Troponin I 0.035 H (0.01-0.034) ng/mL NT-Pro-B Natriuret Pep (<450) pg/mL Total Protein 6.6 (6.3-8.2) g/dL Albumin 3.7 (3.5-5.0) g/dL Globulin 2.9 (1.7-4.1) g/dL Albumin/Globulin Ratio 1.3 (1.0-2.8) Lipase 58 (23-300) U/L SARS-CoV-2 (PCR) (Negative) 05/20/22 05/20/22 05/20/22 Range/Units 10:09 12:21 17:50 WBC (4.5-11.0) X10^3/uL RBC (4.0-5.2) X10^6/uL Hgb (12.0-16.0) g/dL Hct (36-46) % MCV (80-100) fL MCH (26-34) PG MCHC (30-36) % RDW (11.6-14.8) % Plt Count (150-400) X10^3/uL Neut % (Auto) (50-75) % Lymph % (Auto) (25-40) % [place] % (Auto) (3-14) % Eos % (Auto) (2-4) % Baso % (Auto) (0-2) % Neut # (Auto) (2751-9205) /uL Lymph # (Auto) (7060-1028) /uL [place] # (Auto) (0-900) /uL Eos # (Auto) (0-450) /uL Baso # (Auto) (0-100) /uL PT (10.1-12.7) SECONDS INR (0.9-1.3) APTT (26-36) SECONDS Sodium (137-145) mmol/L Potassium (3.4-5.1) mmol/L Chloride (98-107) mmol/L Carbon Dioxide (22-32) mmol/L BUN (7-17) mg/dL Creatinine (0.52-1.04) mg/dL Estimated GFR (>60) mL/min BUN/Creatinine Ratio (6-22) Glucose (80-110) mg/dL Calcium (8.4-10.2) mg/dL Total Bilirubin (0.2-1.3) mg/dL AST (14-36) IU/L ALT (<35) IU/L Alkaline Phosphatase (38-126) U/L Total Creatine Kinase (30-135) U/L CK-MB (CK-2) CK-MB (CK-2) Rel Index Troponin I 0.030 (0.01-0.034) ng/mL NT-Pro-B Natriuret Pep 447 (<450) pg/mL Total Protein (6.3-8.2) g/dL Albumin (3.5-5.0) g/dL Globulin (1.7-4.1) g/dL Albumin/Globulin Ratio (1.0-2.8) Lipase (23-300) U/L SARS-CoV-2 (PCR) Negative (Negative) 05/21/22 05/21/22 05/21/22 Range/Units 04:03 08:40 08:40 WBC 5.7 (4.5-11.0) X10^3/uL RBC 4.45 (4.0-5.2) X10^6/uL Hgb 12.6 (12.0-16.0) g/dL Hct 37.3 (36-46) % MCV 83.8 (80-100) fL MCH 28.4 (26-34) PG MCHC 33.9 (30-36) % RDW 14.8 (11.6-14.8) % Plt Count 197 (150-400) X10^3/uL Neut % (Auto) 65.8 (50-75) % Lymph % (Auto) 16.6 L (25-40) % [place] % (Auto) 8.3 (3-14) % Eos % (Auto) 8.0 H (2-4) % Baso % (Auto) 1.3 (0-2) % Neut # (Auto) 3800 (0742-3550) /uL Lymph # (Auto) 1000 L (1330-0685) /uL [place] # (Auto) 500 (0-900) /uL Eos # (Auto) 500 H (0-450) /uL Baso # (Auto) 100 (0-100) /uL PT (10.1-12.7) SECONDS INR (0.9-1.3) APTT (26-36) SECONDS Sodium 138 (137-145) mmol/L Potassium 3.9 (3.4-5.1) mmol/L Chloride 103 (98-107) mmol/L Carbon Dioxide 30 (22-32) mmol/L BUN 14 (7-17) mg/dL Creatinine 0.80 (0.52-1.04) mg/dL Estimated GFR > 60 (>60) mL/min BUN/Creatinine Ratio 17.5 (6-22) Glucose 92 (80-110) mg/dL Calcium 9.1 (8.4-10.2) mg/dL Total Bilirubin (0.2-1.3) mg/dL AST (14-36) IU/L ALT (<35) IU/L Alkaline Phosphatase (38-126) U/L Total Creatine Kinase 28 L (30-135) U/L CK-MB (CK-2) TNP CK-MB (CK-2) Rel Index TNP Troponin I 0.222 H* 0.251 H* (0.01-0.034) ng/mL NT-Pro-B Natriuret Pep (<450) pg/mL Total Protein (6.3-8.2) g/dL Albumin (3.5-5.0) g/dL Globulin (1.7-4.1) g/dL Albumin/Globulin Ratio (1.0-2.8) Lipase (23-300) U/L SARS-CoV-2 (PCR) (Negative) 05/21/22 05/21/22 05/21/22 Range/Units 11:28 17:39 23:43 WBC (4.5-11.0) X10^3/uL RBC (4.0-5.2) X10^6/uL Hgb (12.0-16.0) g/dL Hct (36-46) % MCV (80-100) fL MCH (26-34) PG MCHC (30-36) % RDW (11.6-14.8) % Plt Count (150-400) X10^3/uL Neut % (Auto) (50-75) % Lymph % (Auto) (25-40) % [place] % (Auto) (3-14) % Eos % (Auto) (2-4) % Baso % (Auto) (0-2) % Neut # (Auto) (2213-4140) /uL Lymph # (Auto) (9949-3866) /uL [place] # (Auto) (0-900) /uL Eos # (Auto) (0-450) /uL Baso # (Auto) (0-100) /uL PT (10.1-12.7) SECONDS INR (0.9-1.3) APTT 176 H* D 39 H D 44 H (26-36) SECONDS Sodium (137-145) mmol/L Potassium (3.4-5.1) mmol/L Chloride (98-107) mmol/L Carbon Dioxide (22-32) mmol/L BUN (7-17) mg/dL Creatinine (0.52-1.04) mg/dL Estimated GFR (>60) mL/min BUN/Creatinine Ratio (6-22) Glucose (80-110) mg/dL Calcium (8.4-10.2) mg/dL Total Bilirubin (0.2-1.3) mg/dL AST (14-36) IU/L ALT (<35) IU/L Alkaline Phosphatase (38-126) U/L Total Creatine Kinase (30-135) U/L CK-MB (CK-2) CK-MB (CK-2) Rel Index Troponin I (0.01-0.034) ng/mL NT-Pro-B Natriuret Pep (<450) pg/mL Total Protein (6.3-8.2) g/dL Albumin (3.5-5.0) g/dL Globulin (1.7-4.1) g/dL Albumin/Globulin Ratio (1.0-2.8) Lipase (23-300) U/L SARS-CoV-2 (PCR) (Negative) 05/22/22 05/22/22 05/22/22 Range/Units 05:20 05:20 05:20 WBC 5.2 (4.5-11.0) X10^3/uL RBC 4.04 (4.0-5.2) X10^6/uL Hgb 11.4 L (12.0-16.0) g/dL Hct 33.6 L (36-46) % MCV 83.3 (80-100) fL MCH 28.2 (26-34) PG MCHC 33.9 (30-36) % RDW 14.8 (11.6-14.8) % Plt Count 189 (150-400) X10^3/uL Neut % (Auto) 58.3 (50-75) % Lymph % (Auto) 23.9 L (25-40) % [place] % (Auto) 8.7 (3-14) % Eos % (Auto) 8.4 H (2-4) % Baso % (Auto) 0.7 (0-2) % Neut # (Auto) 3000 (0932-8458) /uL Lymph # (Auto) 1200 (1175-1625) /uL [place] # (Auto) 500 (0-900) /uL Eos # (Auto) 400 (0-450) /uL Baso # (Auto) 0 (0-100) /uL PT (10.1-12.7) SECONDS INR (0.9-1.3) APTT 48 H (26-36) SECONDS Sodium 138 (137-145) mmol/L Potassium 3.9 (3.4-5.1) mmol/L Chloride 105 (98-107) mmol/L Carbon Dioxide 27 (22-32) mmol/L BUN 9 (7-17) mg/dL Creatinine 0.79 (0.52-1.04) mg/dL Estimated GFR > 60 (>60) mL/min BUN/Creatinine Ratio 11.4 (6-22) Glucose 106 (80-110) mg/dL Calcium 8.8 (8.4-10.2) mg/dL Total Bilirubin (0.2-1.3) mg/dL AST (14-36) IU/L ALT (<35) IU/L Alkaline Phosphatase (38-126) U/L Total Creatine Kinase 25 L (30-135) U/L CK-MB (CK-2) TNP CK-MB (CK-2) Rel Index TNP Troponin I 0.145 H* (0.01-0.034) ng/mL NT-Pro-B Natriuret Pep (<450) pg/mL Total Protein (6.3-8.2) g/dL Albumin (3.5-5.0) g/dL Globulin (1.7-4.1) g/dL Albumin/Globulin Ratio (1.0-2.8) Lipase (23-300) U/L SARS-CoV-2 (PCR) (Negative) MDM Narrative Medical decision making narrative: Patient is having chest pressure she needs left main stent found at [facility]. Finally did speak with Dr. Feng cardiology at [facility] who states that with her ongoing symptoms and known disease she needs a stent placed sooner rather than later. Recommends not discharging her home recommend sending her they unfortunately do not have any beds available he states recommend transferring to higher level of care with they can possibly do a CABG as well. She has been placed on list . [facility] does have beds available but unable to provide care that is needed Patient signed out to Dr. Lal for further management 1999(Lukasz) Patient received in sign out from [Arturo]. I have reviewed the clinical course and performed an independent history and physical exam. Patient resting comfortably. No beds available at [place], [facility], [facility], , calls into [facility] 0430 -troponin now positive, heparin ordered. Patient resting comfortably no pain, pressure or squeezing 05/21/22 8am Patient signed out to me by Dr. Lal. I have seen evaluated patient myself. This started having chest pressure last evening troponin now positive 0.2 EKG remains unchanged with persistent ST depression in lead 1 and aVL. She has known main disease. She had 3 nitroglycerin which seemed to help her pressure she is no longer having any. She continues to be on many to list. She is on list. Merged With [facility] Dr. Ascencio was contacted this morning and states that needs to go to larger facility for left main disease. GENERAL: Alert pleasant 86-year-old female CARDIOVASCULAR: peripheral pulses in tact, cap refill <2 sec RESPIRATORY: No respiratory distress, speaks in full sentences without difficulty EXTREMITIES: Normal range of motion, no clubbing or edema. Neurovascularly intact NEUROLOGICAL: Cranial nerves II through XII grossly intact. Normal gait and speech. SKIN: Warm, dry, no petechiae, no rashes or lesions. a/p 1. Coronary artery disease, left main, positive troponin -heparin -trend troponin -Just had echo, 2000 Dr Kelley, cArdiology at [facility], at this time strongly recommends that cardiology group that was previously taking care for at [facility] continue her care. Patient is not on [facility] hospital list without accepting Cardiology signed out to Dr. Lukasz Nichols 11:55am Patient is seen and examined Currently pain-free on heparin stable numbers with next PTT due tomorrow No complaints Vitals: Blood pressure 175/74, pulse is 60, respiratory rate of 27, 98.5, 96% on 2 L nasal cannula Chest: Lungs are clear Cardiac: Regular rate and rhythm Abdomen: Soft nontender Impression and plan NSTEMI: Troponin seems to be trending down with a max at 0.251 yesterday. Today is 0.145. She remains on heparin. She has a known left main lesion and will need to be transferred No beds are available we continue to make multiple phone calls. [facility] is involved. Patient and her daughter updated. Dr Nichols 320pm Discussed with Dr Connor, Caridology at [facility]. Would like to transfer, discussion with house furnishings supervisor and will call back. 545pm discussed care with house furnishings supervisor. Coating Inspector would very much like to keep her and have her come up to [facility]. There are absolutely no beds available. Will plan on boarding her again overnight with continued heparin drip with anticipation of transfer to [facility] for PCI intervention tomorrow. 1900 - patient received back in signout. Patient resting comfortably and is currently absent of chest pain. 2330 - call from hospitalist at ([facility]) happy to accept patient in transfer <Erinn Nichols MD - Last Filed: 05/23/22 05:07> Lab Data Labs: Lab Results 05/20/22 05/20/22 05/20/22 Range/Units 10:09 10:09 10:09 WBC 7.1 (4.5-11.0) X10^3/uL RBC 4.66 (4.0-5.2) X10^6/uL Hgb 13.3 (12.0-16.0) g/dL Hct 38.9 (36-46) % MCV 83.5 (80-100) fL MCH 28.5 (26-34) PG MCHC 34.1 (30-36) % RDW 15.0 H (11.6-14.8) % Plt Count 227 (150-400) X10^3/uL Neut % (Auto) 68.1 (50-75) % Lymph % (Auto) 16.2 L (25-40) % [place] % (Auto) 7.9 (3-14) % Eos % (Auto) 6.8 H (2-4) % Baso % (Auto) 1.0 (0-2) % Neut # (Auto) 4800 (5579-7970) /uL Lymph # (Auto) 1100 (0116-7729) /uL [place] # (Auto) 600 (0-900) /uL Eos # (Auto) 500 H (0-450) /uL Baso # (Auto) 100 (0-100) /uL PT 11.7 (10.1-12.7) SECONDS INR 1.0 (0.9-1.3) APTT 31 (26-36) SECONDS Sodium 137 (137-145) mmol/L Potassium 4.1 (3.4-5.1) mmol/L Chloride 99 (98-107) mmol/L Carbon Dioxide 31 (22-32) mmol/L BUN 18 H (7-17) mg/dL Creatinine 1.03 (0.52-1.04) mg/dL Estimated GFR 53 L (>60) mL/min BUN/Creatinine Ratio 17.5 (6-22) Glucose 100 (80-110) mg/dL Calcium 9.6 (8.4-10.2) mg/dL Total Bilirubin 1.4 H (0.2-1.3) mg/dL AST 29 (14-36) IU/L ALT 16 (<35) IU/L Alkaline Phosphatase 65 (38-126) U/L Total Creatine Kinase 26 L (30-135) U/L CK-MB (CK-2) TNP CK-MB (CK-2) Rel Index TNP Troponin I 0.035 H (0.01-0.034) ng/mL NT-Pro-B Natriuret Pep (<450) pg/mL Total Protein 6.6 (6.3-8.2) g/dL Albumin 3.7 (3.5-5.0) g/dL Globulin 2.9 (1.7-4.1) g/dL Albumin/Globulin Ratio 1.3 (1.0-2.8) Lipase 58 (23-300) U/L SARS-CoV-2 (PCR) (Negative) 05/20/22 05/20/22 05/20/22 Range/Units 10:09 12:21 17:50 WBC (4.5-11.0) X10^3/uL RBC (4.0-5.2) X10^6/uL Hgb (12.0-16.0) g/dL Hct (36-46) % MCV (80-100) fL MCH (26-34) PG MCHC (30-36) % RDW (11.6-14.8) % Plt Count (150-400) X10^3/uL Neut % (Auto) (50-75) % Lymph % (Auto) (25-40) % [place] % (Auto) (3-14) % Eos % (Auto) (2-4) % Baso % (Auto) (0-2) % Neut # (Auto) (1859-0674) /uL Lymph # (Auto) (6151-4944) /uL [place] # (Auto) (0-900) /uL Eos # (Auto) (0-450) /uL Baso # (Auto) (0-100) /uL PT (10.1-12.7) SECONDS INR (0.9-1.3) APTT (26-36) SECONDS Sodium (137-145) mmol/L Potassium (3.4-5.1) mmol/L Chloride (98-107) mmol/L Carbon Dioxide (22-32) mmol/L BUN (7-17) mg/dL Creatinine (0.52-1.04) mg/dL Estimated GFR (>60) mL/min BUN/Creatinine Ratio (6-22) Glucose (80-110) mg/dL Calcium (8.4-10.2) mg/dL Total Bilirubin (0.2-1.3) mg/dL AST (14-36) IU/L ALT (<35) IU/L Alkaline Phosphatase (38-126) U/L Total Creatine Kinase (30-135) U/L CK-MB (CK-2) CK-MB (CK-2) Rel Index Troponin I 0.030 (0.01-0.034) ng/mL NT-Pro-B Natriuret Pep 447 (<450) pg/mL Total Protein (6.3-8.2) g/dL Albumin (3.5-5.0) g/dL Globulin (1.7-4.1) g/dL Albumin/Globulin Ratio (1.0-2.8) Lipase (23-300) U/L SARS-CoV-2 (PCR) Negative (Negative) 05/21/22 05/21/22 05/21/22 Range/Units 04:03 08:40 08:40 WBC 5.7 (4.5-11.0) X10^3/uL RBC 4.45 (4.0-5.2) X10^6/uL Hgb 12.6 (12.0-16.0) g/dL Hct 37.3 (36-46) % MCV 83.8 (80-100) fL MCH 28.4 (26-34) PG MCHC 33.9 (30-36) % RDW 14.8 (11.6-14.8) % Plt Count 197 (150-400) X10^3/uL Neut % (Auto) 65.8 (50-75) % Lymph % (Auto) 16.6 L (25-40) % [place] % (Auto) 8.3 (3-14) % Eos % (Auto) 8.0 H (2-4) % Baso % (Auto) 1.3 (0-2) % Neut # (Auto) 3800 (0681-5926) /uL Lymph # (Auto) 1000 L (3187-5343) /uL [place] # (Auto) 500 (0-900) /uL Eos # (Auto) 500 H (0-450) /uL Baso # (Auto) 100 (0-100) /uL PT (10.1-12.7) SECONDS INR (0.9-1.3) APTT (26-36) SECONDS Sodium 138 (137-145) mmol/L Potassium 3.9 (3.4-5.1) mmol/L Chloride 103 (98-107) mmol/L Carbon Dioxide 30 (22-32) mmol/L BUN 14 (7-17) mg/dL Creatinine 0.80 (0.52-1.04) mg/dL Estimated GFR > 60 (>60) mL/min BUN/Creatinine Ratio 17.5 (6-22) Glucose 92 (80-110) mg/dL Calcium 9.1 (8.4-10.2) mg/dL Total Bilirubin (0.2-1.3) mg/dL AST (14-36) IU/L ALT (<35) IU/L Alkaline Phosphatase (38-126) U/L Total Creatine Kinase 28 L (30-135) U/L CK-MB (CK-2) TNP CK-MB (CK-2) Rel Index TNP Troponin I 0.222 H* 0.251 H* (0.01-0.034) ng/mL NT-Pro-B Natriuret Pep (<450) pg/mL Total Protein (6.3-8.2) g/dL Albumin (3.5-5.0) g/dL Globulin (1.7-4.1) g/dL Albumin/Globulin Ratio (1.0-2.8) Lipase (23-300) U/L SARS-CoV-2 (PCR) (Negative) 05/21/22 05/21/22 05/21/22 Range/Units 11:28 17:39 23:43 WBC (4.5-11.0) X10^3/uL RBC (4.0-5.2) X10^6/uL Hgb (12.0-16.0) g/dL Hct (36-46) % MCV (80-100) fL MCH (26-34) PG MCHC (30-36) % RDW (11.6-14.8) % Plt Count (150-400) X10^3/uL Neut % (Auto) (50-75) % Lymph % (Auto) (25-40) % [place] % (Auto) (3-14) % Eos % (Auto) (2-4) % Baso % (Auto) (0-2) % Neut # (Auto) (5581-9932) /uL Lymph # (Auto) (2668-0883) /uL [place] # (Auto) (0-900) /uL Eos # (Auto) (0-450) /uL Baso # (Auto) (0-100) /uL PT (10.1-12.7) SECONDS INR (0.9-1.3) APTT 176 H* D 39 H D 44 H (26-36) SECONDS Sodium (137-145) mmol/L Potassium (3.4-5.1) mmol/L Chloride (98-107) mmol/L Carbon Dioxide (22-32) mmol/L BUN (7-17) mg/dL Creatinine (0.52-1.04) mg/dL Estimated GFR (>60) mL/min BUN/Creatinine Ratio (6-22) Glucose (80-110) mg/dL Calcium (8.4-10.2) mg/dL Total Bilirubin (0.2-1.3) mg/dL AST (14-36) IU/L ALT (<35) IU/L Alkaline Phosphatase (38-126) U/L Total Creatine Kinase (30-135) U/L CK-MB (CK-2) CK-MB (CK-2) Rel Index Troponin I (0.01-0.034) ng/mL NT-Pro-B Natriuret Pep (<450) pg/mL Total Protein (6.3-8.2) g/dL Albumin (3.5-5.0) g/dL Globulin (1.7-4.1) g/dL Albumin/Globulin Ratio (1.0-2.8) Lipase (23-300) U/L SARS-CoV-2 (PCR) (Negative) 05/22/22 05/22/22 05/22/22 Range/Units 05:20 05:20 05:20 WBC 5.2 (4.5-11.0) X10^3/uL RBC 4.04 (4.0-5.2) X10^6/uL Hgb 11.4 L (12.0-16.0) g/dL Hct 33.6 L (36-46) % MCV 83.3 (80-100) fL MCH 28.2 (26-34) PG MCHC 33.9 (30-36) % RDW 14.8 (11.6-14.8) % Plt Count 189 (150-400) X10^3/uL Neut % (Auto) 58.3 (50-75) % Lymph % (Auto) 23.9 L (25-40) % [place] % (Auto) 8.7 (3-14) % Eos % (Auto) 8.4 H (2-4) % Baso % (Auto) 0.7 (0-2) % Neut # (Auto) 3000 (6065-0841) /uL Lymph # (Auto) 1200 (9692-0925) /uL [place] # (Auto) 500 (0-900) /uL Eos # (Auto) 400 (0-450) /uL Baso # (Auto) 0 (0-100) /uL PT (10.1-12.7) SECONDS INR (0.9-1.3) APTT 48 H (26-36) SECONDS Sodium 138 (137-145) mmol/L Potassium 3.9 (3.4-5.1) mmol/L Chloride 105 (98-107) mmol/L Carbon Dioxide 27 (22-32) mmol/L BUN 9 (7-17) mg/dL Creatinine 0.79 (0.52-1.04) mg/dL Estimated GFR > 60 (>60) mL/min BUN/Creatinine Ratio 11.4 (6-22) Glucose 106 (80-110) mg/dL Calcium 8.8 (8.4-10.2) mg/dL Total Bilirubin (0.2-1.3) mg/dL AST (14-36) IU/L ALT (<35) IU/L Alkaline Phosphatase (38-126) U/L Total Creatine Kinase 25 L (30-135) U/L CK-MB (CK-2) TNP CK-MB (CK-2) Rel Index TNP Troponin I 0.145 H* (0.01-0.034) ng/mL NT-Pro-B Natriuret Pep (<450) pg/mL Total Protein (6.3-8.2) g/dL Albumin (3.5-5.0) g/dL Globulin (1.7-4.1) g/dL Albumin/Globulin Ratio (1.0-2.8) Lipase (23-300) U/L SARS-CoV-2 (PCR) (Negative) Imaging Data Chest x-ray: Radiologist's Impression: XRay Report Date of Service: 05/20/22 Loc: ED Accession Number: [id number] ?? Procedure: XR chest 1V Ordering Provider: Rima Morris D.O. PROCEDURE:? XR CHEST 1V ? INDICATIONS:? chest pain ? TECHNIQUE:? One view of the chest was acquired.? ? COMPARISON:? [facility], , XR CHEST 1V, 05/03/2022, 8:53. ? FINDINGS:? ? Surgical changes and devices:? Patient is status post median sternotomy. ? Lungs and pleura:? There are diffuse interstitial radiopacities bilaterally.? No pleural effusion or pneumothorax. ? Mediastinum:? Mediastinal contours appear normal.? Heart size is mildly enlarged, as before.? The thoracic aorta is tortuous and calcified. ? Bones and chest wall:? No suspicious bony lesions.? Overlying soft tissues appear unremarkable.? ? IMPRESSION:? ? 1. Diffuse interstitial radiopacities suggesting pulmonary edema. ? 2. Mild cardiomegaly. ? 3. Aortic atherosclerosis.? ? ? Dictated by: Polly Tyler M.D. on 05/20/2022 at 10:33 ? ? MDM Narrative Medical decision making narrative: Patient is having chest pressure she needs left main stent found at [facility]. Finally did speak with Dr. Feng cardiology at [facility] who states that with her ongoing symptoms and known disease she needs a stent placed sooner rather than later. Recommends not discharging her home recommend sending her they unfortunately do not have any beds available he states recommend transferring to higher level of care with they can possibly do a CABG as well. She has been placed on list . [facility] does have beds available but unable to provide care that is needed Patient signed out to Dr. Lal for further management 1999([id number]) Patient received in sign out from [Arturo]. I have reviewed the clinical course and performed an independent history and physical exam. Patient resting comfortably. No beds available at [place], [facility], [facility], , calls into [facility] 0430 -troponin now positive, heparin ordered. Patient resting comfortably no pain, pressure or squeezing 05/21/22 8am Patient signed out to me by Dr. Lal. I have seen evaluated patient myself. This started having chest pressure last evening troponin now positive 0.2 EKG remains unchanged with persistent ST depression in lead 1 and aVL. She has known main disease. She had 3 nitroglycerin which seemed to help her pressure she is no longer having any. She continues to be on many to list. She is on list. Merged With [facility] Dr. Ascencio was contacted this morning and states that needs to go to larger facility for left main disease. GENERAL: Alert pleasant 86-year-old female CARDIOVASCULAR: peripheral pulses in tact, cap refill <2 sec RESPIRATORY: No respiratory distress, speaks in full sentences without difficulty EXTREMITIES: Normal range of motion, no clubbing or edema. Neurovascularly intact NEUROLOGICAL: Cranial nerves II through XII grossly intact. Normal gait and speech. SKIN: Warm, dry, no petechiae, no rashes or lesions. a/p 1. Coronary artery disease, left main, positive troponin -heparin -trend troponin -Just had echo, 1999 Dr Kelley, cArdiology at [facility], at this time strongly recommends that cardiology group that was previously taking care for at [facility] continue her care. Patient is not on [facility] hospital list without accepting Cardiology signed out to Dr. Lukasz Nichols 11:55am Patient is seen and examined Currently pain-free on heparin stable numbers with next PTT due tomorrow No complaints Vitals: Blood pressure 175/74, pulse is 60, respiratory rate of 27, 98.5, 96% on 2 L nasal cannula Chest: Lungs are clear Cardiac: Regular rate and rhythm Abdomen: Soft nontender Impression and plan NSTEMI: Troponin seems to be trending down with a max at 0.251 yesterday. Today is 0.145. She remains on heparin. She has a known left main lesion and will need to be transferred No beds are available we continue to make multiple phone calls. [facility] is involved. Patient and her daughter updated. Dr Nichols 320pm Discussed with Dr Connor, Caridology at [facility]. Would like to transfer, discussion with house furnishings supervisor and will call back. 545pm discussed care with house furnishings supervisor. Coating Inspector would very much like to keep her and have her come up to [facility]. There are absolutely no beds available. Will plan on boarding her again overnight with continued heparin drip with anticipation of transfer to [facility] for PCI intervention tomorrow. 1900 - patient received back in signout. Patient resting comfortably and is currently absent of chest pain. 2330 - call from hospitalist at ([facility]) happy to accept patient in transfer Eventual transfer to [facility], first bed available <Leland Lal DO - Last Filed: 05/22/22 23:48> Critical Care Time Critical Care Time: Yes Total Critical Care Time: 120 Attestation: The high probability of a clinically significant, sudden or life threatening deterioration of the [CV] system(s) required my full and direct attention, intervention and personal management. The aggregate critical care time was [120] minutes. This time is in addition to time spent performing reported procedures but includes the following: [x] Data Review and interpretation [x] Patient assessment and monitoring of vital signs [x] Documentation [x] Medication orders and management Discharge Plan Departure Patient Disposition: [facility] Clinical Impression: Acute non-ST elevation myocardial infarction (NSTEMI), Triple vessel coronary artery disease Prescriptions: No Action aspirin 81 MG tablet,delayed release (DR/EC) 81 mg PO QDAY Qty: 0 Rx Instructions: morning omega 3-fva-ioe-fish oil [Fish Oil] 1,000 mg (120 mg-180 mg) Capsule 1,000 mg PO DAILY nitroglycerin [Nitrostat] 0.4 mg Tablet, Sublingual 0.4 mg SUBLINGUAL Q5-15M PRN (Reason: Chest Pain) vitamin E 400 unit Capsule 400 unit PO DAILY multivitamin Tablet,Chewable 1 tab PO DAILY atorvastatin [Lipitor] 20 mg tablet 40 mg PO QPM Label Comments: patient states she forgets to take diltiazem HCl [Cartia XT] 120 mg capsule,extended release 24hr 120 mg PO QAM Label Comments: TAKE 1 CAPSULE BY MOUTH ONCE DAILY furosemide 40 mg tablet 40 mg PO QAM Label Comments: pt instructed to stop medications. d/c 05/10/22 levothyroxine 88 mcg tablet 88 mcg PO QAM Label Comments: TAKE 1 TABLET BY MOUTH ONCE DAILY isosorbide mononitrate 120 mg tablet extended release 24 hr 120 mg PO QAM Label Comments: TAKE 1 TABLET BY MOUTH ONCE DAILY IN THE MORNING lisinopril 40 mg tablet 20 mg PO QAM Label Comments: TAKE 1 TABLET BY MOUTH ONCE DAILY clopidogrel 75 mg tablet 75 mg PO QAM ipratropium-albuterol 0.5 mg-3 mg(2.5 mg base)/3 mL solution for nebulization INHALATION PRN (Reason: Shortness Of Breath Or Wheezing) metoprolol succinate 25 mg tablet extended release 24 hr 25 mg PO DAILY Label Comments: pt has not started, it is at the pharmacy for 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 take 10ml by mouth every 4 hrs as needed for cough
[2022-05-20 10:18] LABS: Add Manual Diff / Slide Review NO; Basophils Absolute Auto 100 /uL (0-100); Eosinophils Absolute Auto 500 /uL (0-450); Eosinophils Percent Auto 6.8 % (2-4); Hematocrit 38.9 % (36-46); Hemoglobin 13.3 g/dL (12.0-16.0); Lymphocytes Absolute Auto 1100 /uL (1100-4500); Lymphocytes Percent Auto 16.2 % (25-40); Mean Corpuscular HGB Conc 34.1 % (30-36); Mean Corpuscular Hemoglobin 28.5 PG (26-34); Mean Corpuscular Volume 83.5 fL (80-100); Monocytes Absolute Auto 600 /uL (0-900); Monocytes Percent Auto 7.9 % (3-14); Neutrophils Absolute Auto 4800 /uL (1500-7000); Neutrophils Percent Auto 68.1 % (50-75); Platelet Count 227 X10^3/uL (150-400); Red Blood Cell Count 4.66 X10^6/uL (4.0-5.2); White Blood Cell Count 7.1 X10^3/uL (4.5-11.0)
[2022-05-20 10:19] LABS: Prothrombin Time 11.7 SECONDS (10.1-12.7)
[2022-05-20 10:22] LABS: PTT Partial Thromboplastin Tim 31 SECONDS (26-36)
[2022-05-20] MEDS: SODIUM CHLORIDE 0.9% 1,000 ML 150 ML IV (10:24)
[2022-05-20] MEDS: ASPIRIN 81 MG CHEW TAB 324 MG PO (10:24)
[2022-05-20 10:26] LABS: Alanine Aminotransferase 16 IU/L (<35); Albumin 3.7 g/dL (3.5-5.0); Albumin Globulin Ratio 1.3 (1.0-2.8); Alkaline Phosphatase 65 U/L (38-126); Aspartate Aminotransferase 29 IU/L (14-36); BUN Creatinine Ratio 17.5 (6-22); Bilirubin Total 1.4 mg/dL (0.2-1.3); Blood Urea Nitrogen 18 mg/dL (7-17); Calcium 9.6 mg/dL (8.4-10.2); Carbon Dioxide 31 mmol/L (22-32); Chloride 99 mmol/L (98-107); Creatine Kinase 26 U/L (30-135); Estimated Glomerular Filt Rate 53 mL/min (>60); Globulin 2.9 g/dL (1.7-4.1); Glucose 100 mg/dL (80-110); HEMOLYSIS < 15 (0-50); Lipase 58 U/L (23-300); Potassium 4.1 mmol/L (3.4-5.1); Sodium 137 mmol/L (137-145); Total Protein 6.6 g/dL (6.3-8.2)
[2022-05-20 10:37] LABS: NT-proBNP (BNP-Adult 18+) 447 pg/mL (<450)
[2022-05-20 10:40] LABS: Troponin I 0.035 ng/mL (0.01-0.034)
--- NOTE | 2022-05-20 10:52 | PC.NURSE ---
pt on 2 L oxygen at baseline. came in with home machine
[2022-05-20 18:15] LABS: COVID19 -Nasal RAPID Negative (Negative)
--- NOTE | 2022-05-20 21:33 | PC.NURSE ---
Patient laying on right side, sleeping. Respirations equal, regular and unlabored. No acute distress noted.
--- NOTE | 2022-05-20 23:27 | PC.NURSE ---
Patient able to transfer self from [facility] onto hospital bed. She reports, funny feeling in chest with exertion that resolves with rest. Patient on continuous cardiac rn, BP cuff and 02 probe
[2022-05-20] MEDS: ATORVASTATIN 20 MG TABLET 40 MG PO (23:47)
[2022-05-20] MEDS: dilTIAZem CD 120 MG CAP PO (23:48)
[2022-05-21] VITALS (106 sets, daily range): BP systolic 118–194; BP diastolic 58–103; PULSE 49–71; RESP 16–45; O2SAT 83–100
[2022-05-21 04:32] LABS: BUN Creatinine Ratio 17.5 (6-22); Blood Urea Nitrogen 14 mg/dL (7-17); Calcium 9.1 mg/dL (8.4-10.2); Carbon Dioxide 30 mmol/L (22-32); Chloride 103 mmol/L (98-107); Creatine Kinase 28 U/L (30-135); Estimated Glomerular Filt Rate > 60 mL/min (>60); Glucose 92 mg/dL (80-110); HEMOLYSIS < 15 (0-50); Potassium 3.9 mmol/L (3.4-5.1); Sodium 138 mmol/L (137-145)
[2022-05-21 04:47] LABS: Troponin I 0.222 ng/mL (0.01-0.034)
[2022-05-21] MEDS: HEPARIN 5,000 UNIT/ML VIAL 4000 UNIT IV (05:10)
[2022-05-21] MEDS: HEPARIN DRIP 25,000 UNIT/500 ML IV.SOLN 12.846 UNIT IV (05:19)
[2022-05-21] MEDS: NITROGLYCERIN 0.4 MG SL TAB SL ×3 (06:58→07:07)
[2022-05-21] MEDS: lisinopriL 20 MG TABLET PO (07:04)
[2022-05-21 09:05] LABS: Add Manual Diff / Slide Review NO; Basophils Absolute Auto 100 /uL (0-100); Basophils Percent Auto 1.3 % (0-2); Eosinophils Absolute Auto 500 /uL (0-450); Hematocrit 37.3 % (36-46); Hemoglobin 12.6 g/dL (12.0-16.0); Lymphocytes Absolute Auto 1000 /uL (1100-4500); Lymphocytes Percent Auto 16.6 % (25-40); Mean Corpuscular HGB Conc 33.9 % (30-36); Mean Corpuscular Hemoglobin 28.4 PG (26-34); Mean Corpuscular Volume 83.8 fL (80-100); Monocytes Absolute Auto 500 /uL (0-900); Monocytes Percent Auto 8.3 % (3-14); Neutrophils Absolute Auto 3800 /uL (1500-7000); Neutrophils Percent Auto 65.8 % (50-75); Platelet Count 197 X10^3/uL (150-400); Red Blood Cell Count 4.45 X10^6/uL (4.0-5.2); Red Cell Distribution Width 14.8 % (11.6-14.8); White Blood Cell Count 5.7 X10^3/uL (4.5-11.0)
[2022-05-21 09:29] LABS: Troponin I 0.251 ng/mL (0.01-0.034)
[2022-05-21 12:08] LABS: PTT Partial Thromboplastin Tim 176 SECONDS (26-36)
[2022-05-21 18:03] LABS: PTT Partial Thromboplastin Tim 39 SECONDS (26-36)
--- NOTE | 2022-05-21 22:20 | PC.NURSE ---
Patient laying back in hospital bed, sleeping. Respirations equal, regular and unlabored. On continuous monitor. No acute distress noted.
[2022-05-21 23:55] LABS: PTT Partial Thromboplastin Tim 44 SECONDS (26-36)
[2022-05-22] VITALS (60 sets, daily range): BP systolic 144–199; BP diastolic 65–82; PULSE 46–83; RESP 15–47; TEMP 36.9; O2SAT 91–100
--- NOTE | 2022-05-22 03:48 | PC.NURSE ---
Patient continues to sleep. Respirations equal, regular and unlabored. Skin is pink, warm and dry. No acute distress noted
[2022-05-22 05:39] LABS: Add Manual Diff / Slide Review NO; Basophils Absolute Auto 0 /uL (0-100); Basophils Percent Auto 0.7 % (0-2); Eosinophils Absolute Auto 400 /uL (0-450); Eosinophils Percent Auto 8.4 % (2-4); Hematocrit 33.6 % (36-46); Hemoglobin 11.4 g/dL (12.0-16.0); Lymphocytes Absolute Auto 1200 /uL (1100-4500); Lymphocytes Percent Auto 23.9 % (25-40); Mean Corpuscular HGB Conc 33.9 % (30-36); Mean Corpuscular Hemoglobin 28.2 PG (26-34); Mean Corpuscular Volume 83.3 fL (80-100); Monocytes Absolute Auto 500 /uL (0-900); Monocytes Percent Auto 8.7 % (3-14); Neutrophils Absolute Auto 3000 /uL (1500-7000); Neutrophils Percent Auto 58.3 % (50-75); Platelet Count 189 X10^3/uL (150-400); Red Blood Cell Count 4.04 X10^6/uL (4.0-5.2); Red Cell Distribution Width 14.8 % (11.6-14.8); White Blood Cell Count 5.2 X10^3/uL (4.5-11.0)
[2022-05-22 05:45] LABS: PTT Partial Thromboplastin Tim 48 SECONDS (26-36)
[2022-05-22 05:49] LABS: BUN Creatinine Ratio 11.4 (6-22); Blood Urea Nitrogen 9 mg/dL (7-17); Calcium 8.8 mg/dL (8.4-10.2); Carbon Dioxide 27 mmol/L (22-32); Chloride 105 mmol/L (98-107); Creatine Kinase 25 U/L (30-135); Estimated Glomerular Filt Rate > 60 mL/min (>60); Glucose 106 mg/dL (80-110); HEMOLYSIS < 15 (0-50); Potassium 3.9 mmol/L (3.4-5.1); Sodium 138 mmol/L (137-145)
[2022-05-22 06:39] LABS: Troponin I 0.145 ng/mL (0.01-0.034)
[2022-05-22] MEDS: METOPROLOL ER 25 MG TABLET PO (08:58)
[2022-05-22] MEDS: dilTIAZem CD 120 MG CAP PO (08:58)
[2022-05-22] MEDS: ATORVASTATIN 20 MG TABLET 40 MG PO (08:58)
[2022-05-22] MEDS: lisinopriL 20 MG TABLET PO (08:59)
[2022-05-22] MEDS: TORSEMIDE 10 MG TABLET 20 MG PO (08:59)
--- NOTE | 2022-05-22 09:49 | PC.NURSE ---
provided breakfast tray.
--- NOTE | 2022-05-22 10:15 | PC.NURSE ---
bm x 1 and void x 2 [id number].
--- NOTE | 2022-05-22 13:00 | PC.NURSE ---
Pending transfer: Continuing to attempt to find facility to accept pt. Currently on waitlist @ [facility], [place]. @ 1100: [facility] stated they hoped to have a bed today.
[2022-05-22] MEDS: ISOSORBIDE MONONITRATE ER 30 MG TABLET 120 MG PO (18:53)
== END 2022-05-23 00:40 | disposition short-term general hospital (02) ==
PROVIDERS: Emergency Medicine; Emergency Provider Emergency Medicine
DX: I21.4 Non-ST elevation (NSTEMI) myocardial infarction (principal); I25.10 Atherosclerotic heart disease of native coronary artery without angina pectoris; R06.02 Shortness of breath; Z95.5 Presence of coronary angioplasty implant and graft; Z20.822 Contact with and (suspected) exposure to COVID-19
CPT/HCPCS: 36415; 71045; 80048; 80053; 82550; 83690; 83880; 84484; 85025; 85610; 85730; 87635; 93005; 96361; 96365; 96366; 96375; 99285; 99291; 99292; C9803; J1644

== ENCOUNTER 2022-10-02 11:51 | Emergency (ER) | payer OTHER, SELFPAY ==
[2021-12-22 01:28] VITALS: BMI 25.3
[2022-10-02] VITALS (22 sets, daily range): BP systolic 140–205; BP diastolic 59–103; PULSE 81–104; RESP 16–25; TEMP 36.6; O2SAT 96–100; BMI 25.4
--- NOTE | 2022-10-02 12:07 | DI.RAD.S_ITS ---
PROCEDURE: XR CHEST 1V INDICATIONS: chest pain TECHNIQUE: One view of the chest was acquired. COMPARISON: [facility], CT, CT ANGIO CHEST PE PROTOCOL, 04/14/2022, 12:50. [facility], CR, XR CHEST 1V, 05/20/2022, 10:15. FINDINGS: Surgical changes and devices: Remote CABG Lungs and pleura: Centrilobular emphysema. Mild chronic interstitial pulmonary fibrosis. Lungs are clear. No pleural effusions or pneumothorax. Mediastinum: Mediastinal contours appear normal. Cardiomegaly. Bones and chest wall: No suspicious bony lesions. Overlying soft tissues appear unremarkable. IMPRESSION: 1. Cardiomegaly, remote CABG. 2. Emphysema. 3. Mild chronic interstitial pulmonary fibrosis. Dictated by: Casper Ferraro M.D. on 10/02/2022 at 13:45 Approved by: Casper Ferraro M.D. on 10/02/2022 at 13:46
[2022-10-02] MEDS: ONDANSETRON 4 MG/2 ML INJ IV (12:40)
[2022-10-02 12:45] LABS: Add Manual Diff / Slide Review NO; Basophils Absolute Auto 0 /uL (0-100); Basophils Percent Auto 0.4 % (0-2); Eosinophils Absolute Auto 300 /uL (0-450); Eosinophils Percent Auto 2.7 % (2-4); Hematocrit 44.9 % (36-46); Hemoglobin 14.4 g/dL (12.0-16.0); Lymphocytes Absolute Auto 600 /uL (1100-4500); Lymphocytes Percent Auto 5.7 % (25-40); Mean Corpuscular HGB Conc 32.2 % (30-36); Mean Corpuscular Hemoglobin 27.1 PG (26-34); Mean Corpuscular Volume 84.3 fL (80-100); Monocytes Absolute Auto 500 /uL (0-900); Monocytes Percent Auto 4.5 % (3-14); Neutrophils Absolute Auto 9700 /uL (1500-7000); Neutrophils Percent Auto 86.7 % (50-75); Platelet Count 216 X10^3/uL (150-400); Red Blood Cell Count 5.32 X10^6/uL (4.0-5.2); Red Cell Distribution Width 16.6 % (11.6-14.8); White Blood Cell Count 11.2 X10^3/uL (4.5-11.0)
[2022-10-02 12:49] LABS: Ictotest Urine Negative (Negative)
[2022-10-02 12:50] LABS: INR 1.1 (0.9-1.3); Prothrombin Time 12.1 SECONDS (10.1-12.7)
[2022-10-02 12:52] LABS: PTT Partial Thromboplastin Tim 33 SECONDS (26-36)
[2022-10-02 12:54] LABS: Alanine Aminotransferase 21 IU/L (<35); Albumin 4.4 g/dL (3.5-5.0); Albumin Globulin Ratio 1.4 (1.0-2.8); Alkaline Phosphatase 81 U/L (38-126); Aspartate Aminotransferase 30 IU/L (14-36); BUN Creatinine Ratio 23.5 (6-22); Bilirubin Total 1.1 mg/dL (0.2-1.3); Blood Urea Nitrogen 20 mg/dL (7-17); Calcium 10.4 mg/dL (8.4-10.2); Carbon Dioxide 32 mmol/L (22-32); Chloride 98 mmol/L (98-107); Creatine Kinase 50 U/L (30-135); Estimated Glomerular Filt Rate > 60 mL/min (>60); Globulin 3.2 g/dL (1.7-4.1); Glucose 114 mg/dL (80-110); HEMOLYSIS 16 (0-50); Lipase 79 U/L (23-300); Magnesium 1.8 mg/dL (1.6-2.3); Potassium 4.6 mmol/L (3.4-5.1); Sodium 139 mmol/L (137-145); Total Protein 7.6 g/dL (6.3-8.2)
[2022-10-02 12:55] LABS: COVID19 -Nasal RAPID Negative (Negative)
[2022-10-02 13:05] LABS: Troponin I 0.021 ng/mL (0.01-0.034)
--- NOTE | 2022-10-02 13:17 | PC.NURSE ---
1240 pt had episode of projectile vomiting large amount liquid red/brown with food, along with large episode of liquid brown stool at time of vomiting. after pt cleaned up, pericare, linens changed pt had small amount of incontinent stool again and urge for diarrhea, assisted to bedside commode by medical accountant. large liquid stool again present. pt medicated after emesis with zofran and that helped ease nausea/vomiting
--- NOTE | 2022-10-02 13:27 | ED.ABDPAIN ---
HPI - Abdominal Pain <Porter Carson PA-C - Last Filed: 10/02/22 18:04> General Chief Complaint: Chest Pain Stated Complaint: doesn't feel good stomach to chest Time Seen by Provider: 10/02/22 12:15 Source: patient Mode of arrival: Ambulatory History of Present Illness HPI narrative: 86-year-old female with past medical history NSTEMI, CHF, COPD, hypertension presents to the ED with 1 day of abdominal pain. Patient states that she woke up feeling fine, went to [employer] study, it a little bit of fruit including watermelon, grapes, blackberries, felt uncomfortable in her abdomen, tried to rest in her car for a little bit but felt worse. Patient drove herself to the ED, had a massive bout of emesis and watery diarrhea in the ED. Patient states that she had no other symptoms including fevers, chills, chest pain, shortness of breath, dysuria, lightheadedness, dizziness, syncope. Patient states that she ate some salad any bread stick at [employer] yesterday. Patient denies a history of constipation. Patient states that she more often has diarrhea than constipation. 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 Related Data Home Medications Medication Instructions Recorded Confirmed aspirin 81 mg tablet,delayed 81 mg PO QDAY ##0 07/11/17 05/20/22 release multivitamin 1 tab PO DAILY 07/07/18 05/20/22 nitroglycerin 0.4 mg sublingual 0.4 mg sublingual Q5-15M PRN Chest 07/07/18 05/20/22 tablet (Nitrostat) Pain omega 3-blx-ebm-fish oil 1,000 mg 1,000 mg PO DAILY 07/07/18 05/20/22 (120 mg-180 mg) capsule (Fish Oil) vitamin E 268 mg (400 unit) capsule 400 unit PO DAILY 07/07/18 05/20/22 atorvastatin 20 mg tablet (Lipitor) 40 mg PO QPM 05/04/22 05/20/22 diltiazem HCl 120 mg 120 mg PO QAM 05/04/22 05/20/22 capsule,extended release 24 hr (Cartia XT) furosemide 40 mg tablet 40 mg PO QAM 05/04/22 05/04/22 isosorbide mononitrate 120 mg 120 mg PO QAM 05/04/22 05/20/22 tablet,extended release 24 hr levothyroxine 88 mcg tablet 88 mcg PO QAM 05/04/22 05/20/22 lisinopril 40 mg tablet 20 mg PO QAM 05/04/22 05/20/22 Flonase PRN Dry Nasal Passages 05/20/22 Robitussin DM To Go 10 ml PO PRN Cough 05/20/22 albuterol 90 mcg/actuation aerosol 90 mcg inhalation PRN Shortness Of 05/20/22 inhaler Breath clopidogrel 75 mg tablet 75 mg PO QAM 05/20/22 05/20/22 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 10 mg tablet 10 mg PO TID PRN Muscle Spasm 05/20/22 05/20/22 ipratropium 0.5 mg-albuterol 3 mg ml inhalation PRN Shortness Of 05/20/22 (2.5 mg base)/3 mL nebulization Breath Or Wheezing soln metoprolol succinate 25 mg 25 mg PO DAILY 05/20/22 05/20/22 tablet,extended release 24 hr torsemide 20 mg tablet 20 mg PO DAILY 05/20/22 05/20/22 Allergies Allergy/AdvReac Type Severity Reaction Status Date / Time acarbose Allergy Intermediate Abdominal Verified 05/22/22 18:34 Pain amlodipine Allergy Intermediate Verified 05/22/22 18:34 chlorthalidone Allergy Intermediate Redness of Verified 05/22/22 18:34 Skin doxazosin [From Cardura] Allergy Intermediate Rash Verified 05/22/22 18:34 doxycycline Allergy Intermediate Rash Verified 05/22/22 18:34 gemfibrozil Allergy Intermediate Rash Verified 05/22/22 18:34 levofloxacin Allergy Intermediate Rash Verified 05/22/22 18:34 losartan Allergy Intermediate Rash Verified 05/22/22 18:34 montelukast [From Singulair] Allergy Intermediate Difficulty Verified 05/22/22 18:34 Breathing nifedipine Allergy Intermediate Chills Verified 05/22/22 18:34 Sulfa (Sulfonamide Allergy Intermediate rash Verified 05/22/22 18:34 Antibiotics) sulfamethoxazole Allergy Intermediate Rash Verified 05/22/22 18:34 [From Bactrim] trimethoprim [From Bactrim] Allergy Intermediate Rash Verified 05/22/22 18:34 budesonide [From Symbicort] Allergy Mild Anxiety Verified 05/22/22 18:34 carvedilol Allergy Mild Rash Verified 05/22/22 18:34 choline fenofibrate Allergy Mild Gastrointestinal Verified 05/22/22 18:34 [From Trilipix] Upset formoterol [From Symbicort] Allergy Mild Anxiety Verified 05/22/22 18:34 metoprolol AdvReac Intermediate Verified 05/22/22 18:34 Review of Systems <Porter Carson PA-C - Last Filed: 10/02/22 18:04> Review of Systems ROS Unobtainable: All systems reviewed & are unremarkable except as noted in HPI and below Constitutional Constitutional: Denies chills, Reports fatigue, Denies fever(s), Denies frequent falls, Denies lethargy and Denies weakness Eyes Eyes: Denies change in vision, Denies eye discharge, Denies irritation and Denies loss of vision ENT Ears, Nose, Mouth, and Throat: Denies change in voice, Denies dizziness, Denies neck pain, Denies sore throat and Denies throat swelling Cardiovascular Cardiovascular: Denies chest pain, Denies irregular heart rhythm, Denies lightheadedness, Denies palpitations, Denies dyspnea, Denies dyspnea on exertion and Denies orthopnea Respiratory Respiratory: Denies cough, Denies dyspnea, Denies dyspnea on exertion and Denies wheezing Gastrointestinal Gastrointestinal: Reports abdominal pain, Denies change in bowel habits, Reports diarrhea, Denies nausea and Reports vomiting Genitourinary Genitourinary: Denies hematuria, Denies flank pain, Denies urinary incontinence and Denies urinary urgency Musculoskeletal Musculoskeletal: Denies back pain, Denies muscle weakness, Denies neck pain, Denies numbness and Denies tingling Integumentary/Breasts Skin/Breast: Denies pruritus, Denies erythema, Denies rash and Denies wounds Neurologic Neurologic: Denies behavioral changes, Denies confusion, Denies dizziness, Denies frequent falls, Denies loss of vision, Denies numbness, Denies tingling and Denies weakness Psychiatric Psychiatric: Denies anxiety, Denies behavioral changes, Denies confusion, Denies depression, Denies homicidal ideation and Denies suicidal ideation Endocrine Endocrine: Reports fatigue, Denies flushing and Denies palpitations Hematologic/Lymphatic Hematologic/Lymphatic: Denies easy bruising Allergic/Immunologic Allergic/Immunologic: Denies urticaria, Denies throat swelling and Denies wheezing Patient History <Porter Carson PA-C - Last Filed: 10/02/22 18:04> Medical History (Updated 10/02/22 @ 16:35 by Porter Carson PA-C) Aneurysm of infrarenal abdominal aorta Bilateral carpal tunnel syndrome CAD (coronary artery disease) COPD (chronic obstructive pulmonary disease) with emphysema Elevated TSH HTN (hypertension) Hyperlipidemia Unstable angina Valvular heart disease Surgical History H/O hysterectomy with oophorectomy H/O three vessel coronary artery bypass Hx of heart artery stent Status post cholecystectomy Family History Father Lung cancer Mother COPD (chronic obstructive pulmonary disease) Social History household members: family and children Smoking Status: Former smoker alcohol intake: never Smoking Status: Former smoker tobacco type: cigarettes alcohol intake frequency: 0-2 drinks per day Substance Use Type: does not use Exam <Porter Carson PA-C - Last Filed: 10/02/22 18:04> Narrative Exam Narrative: Const General:?cooperative, healthy appearing and comfortable [facility] Head:?normal to inspection Ears:?hearing grossly normal bilaterally Nose:?external nose normal Face and sinus:?normal facial exam and sinuses nontender Mouth:?oral mucosae normal Throat:?posterior oropharynx normal Eyes General:?appearance normal, both eyes and all related structures Neck Neck:?normal visual inspection and no lymphadenopathy noted Resp Effort & Inspection:?normal respiratory effort Auscultation:?clear to auscultation bilaterally Cardio Rate:?regular rate Rhythm:?regular rhythm GI Abdomen is soft, nondistended. Abdomen is diffusely tender to palpation. No CVA tenderness. Neuro General:?patient alert, patient awake and patient oriented x3 Initial Vital Signs Initial Vital Signs: Vital Signs Temperature 98 F 10/02/22 12:01 Pulse Rate 84 10/02/22 12:01 Respiratory Rate 16 10/02/22 12:01 Blood Pressure 140/70 10/02/22 12:01 Pulse Oximetry 97 10/02/22 12:01 Oxygen Delivery Method 10/02/22 12:01 <Dell Mccollum MD - Last Filed: 10/03/22 11:33> Initial Vital Signs Initial Vital Signs: Vital Signs Temperature 98 F 10/02/22 12:01 Pulse Rate 84 10/02/22 12:01 Respiratory Rate 16 10/02/22 12:01 Blood Pressure 140/70 10/02/22 12:01 Pulse Oximetry 97 10/02/22 12:01 Oxygen Delivery Method 10/02/22 12:01 Course <Porter Carson PA-C - Last Filed: 10/02/22 18:04> Orders Ordered: Discontinued Medications Aspirin (Aspirin 81 Mg Chew Tab) 324 mg PO NOW ONE Stop: 10/02/22 12:07 Last Admin: 10/02/22 14:39 Dose: Not Given Documented By: BRITTA Furosemide 80 mg/ Sodium (Chloride) 58 mls @ 116 mls/hr IV NOW ONE Stop: 10/02/22 15:08 Last Infusion: 10/02/22 16:25 Dose: 0 mls/hr Documented By: Admin: 10/02/22 15:58 Dose: 116 mls/hr Documented By: SUE Ondansetron HCl (Ondansetron 4 Mg/2 Ml Inj) 4 mg IV NOW ONE Stop: 10/02/22 13:16 Last Admin: 10/02/22 12:40 Dose: 4 mg Documented By: SUE Vital Signs Vital signs: Vital Signs - 8 hr 10/02/22 12:01 10/02/22 12:30 10/02/22 12:30 Temperature 98 F Pulse Rate 84 99 H Respiratory Rate 16 18 Blood Pressure 140/70 141/94 H Pulse Oximetry 97 99 Oxygen Delivery Method Room Air Nasal Cannula Oxygen Flow Rate 2 10/02/22 13:29 10/02/22 13:30 10/02/22 13:30 Temperature Pulse Rate 81 86 Respiratory Rate 20 Blood Pressure 181/85 H Pulse Oximetry 96 99 Oxygen Delivery Method Oxygen Flow Rate 10/02/22 14:00 10/02/22 14:12 10/02/22 14:12 Temperature Pulse Rate 95 H 90 Respiratory Rate 20 20 Blood Pressure 171/80 H Pulse Oximetry 99 100 Oxygen Delivery Method Oxygen Flow Rate 10/02/22 14:21 10/02/22 14:21 10/02/22 14:30 Temperature Pulse Rate 91 H Respiratory Rate 20 Blood Pressure 185/85 H 174/78 H Pulse Oximetry 100 Oxygen Delivery Method Oxygen Flow Rate 10/02/22 14:30 10/02/22 14:40 10/02/22 14:40 Temperature Pulse Rate 86 89 Respiratory Rate 21 23 Blood Pressure 170/73 H Pulse Oximetry 99 100 Oxygen Delivery Method Nasal Cannula Oxygen Flow Rate 2 10/02/22 14:50 10/02/22 14:50 10/02/22 15:00 Temperature Pulse Rate 88 95 H Respiratory Rate 23 24 Blood Pressure 186/87 H Pulse Oximetry 99 98 Oxygen Delivery Method Nasal Cannula Nasal Cannula Oxygen Flow Rate 2 2 10/02/22 15:01 10/02/22 15:10 10/02/22 15:10 Temperature Pulse Rate 87 Respiratory Rate 24 Blood Pressure 189/84 H 182/94 H Pulse Oximetry 99 Oxygen Delivery Method Nasal Cannula Oxygen Flow Rate 2 10/02/22 15:20 10/02/22 15:20 10/02/22 15:30 Temperature Pulse Rate 87 Respiratory Rate 23 Blood Pressure 179/84 H 179/81 H Pulse Oximetry 99 Oxygen Delivery Method Nasal Cannula Oxygen Flow Rate 2 10/02/22 15:30 10/02/22 15:40 10/02/22 15:40 Temperature Pulse Rate 87 90 Respiratory Rate 22 23 Blood Pressure 155/59 H Pulse Oximetry 99 100 Oxygen Delivery Method Nasal Cannula Nasal Cannula Oxygen Flow Rate 2 2 10/02/22 15:50 10/02/22 16:00 10/02/22 16:00 Temperature Pulse Rate 93 H Respiratory Rate 24 Blood Pressure 186/88 H 205/93 H Pulse Oximetry 100 Oxygen Delivery Method Nasal Cannula Oxygen Flow Rate 2 10/02/22 16:10 10/02/22 16:10 10/02/22 16:20 Temperature Pulse Rate 88 Respiratory Rate 24 Blood Pressure 198/86 H 188/103 H Pulse Oximetry 99 Oxygen Delivery Method Nasal Cannula Oxygen Flow Rate 2 10/02/22 16:20 10/02/22 16:30 10/02/22 16:30 Temperature Pulse Rate 104 H 82 Respiratory Rate 22 25 H Blood Pressure 191/84 H Pulse Oximetry 100 Oxygen Delivery Method Nasal Cannula Oxygen Flow Rate 2 10/02/22 17:08 Temperature Pulse Rate 88 Respiratory Rate 22 Blood Pressure 183/85 H Pulse Oximetry 98 Oxygen Delivery Method Room Air Oxygen Flow Rate <Dell Mccollum MD - Last Filed: 10/03/22 11:33> Orders Ordered: Discontinued Medications Aspirin (Aspirin 81 Mg Chew Tab) 324 mg PO NOW ONE Stop: 10/02/22 12:07 Last Admin: 10/02/22 14:39 Dose: Not Given Documented By: BRITTA Furosemide 80 mg/ Sodium (Chloride) 58 mls @ 116 mls/hr IV NOW ONE Stop: 10/02/22 15:08 Last Infusion: 10/02/22 16:25 Dose: 0 mls/hr Documented By: Admin: 10/02/22 15:58 Dose: 116 mls/hr Documented By: SUE Ondansetron HCl (Ondansetron 4 Mg/2 Ml Inj) 4 mg IV NOW ONE Stop: 10/02/22 13:16 Last Admin: 10/02/22 12:40 Dose: 4 mg Documented By: SUE Vital Signs Vital signs: Vital Signs - 8 hr 10/02/22 12:01 10/02/22 12:30 10/02/22 12:30 Temperature 98 F Pulse Rate 84 99 H Respiratory Rate 16 18 Blood Pressure 140/70 141/94 H Pulse Oximetry 97 99 Oxygen Delivery Method Room Air Nasal Cannula Oxygen Flow Rate 2 10/02/22 13:29 10/02/22 13:30 10/02/22 13:30 Temperature Pulse Rate 81 86 Respiratory Rate 20 Blood Pressure 181/85 H Pulse Oximetry 96 99 Oxygen Delivery Method Oxygen Flow Rate 10/02/22 14:00 10/02/22 14:12 10/02/22 14:12 Temperature Pulse Rate 95 H 90 Respiratory Rate 20 20 Blood Pressure 171/80 H Pulse Oximetry 99 100 Oxygen Delivery Method Oxygen Flow Rate 10/02/22 14:21 10/02/22 14:21 10/02/22 14:30 Temperature Pulse Rate 91 H Respiratory Rate 20 Blood Pressure 185/85 H 174/78 H Pulse Oximetry 100 Oxygen Delivery Method Oxygen Flow Rate 10/02/22 14:30 10/02/22 14:40 10/02/22 14:40 Temperature Pulse Rate 86 89 Respiratory Rate 21 23 Blood Pressure 170/73 H Pulse Oximetry 99 100 Oxygen Delivery Method Nasal Cannula Oxygen Flow Rate 2 10/02/22 14:50 10/02/22 14:50 10/02/22 15:00 Temperature Pulse Rate 88 95 H Respiratory Rate 23 24 Blood Pressure 186/87 H Pulse Oximetry 99 98 Oxygen Delivery Method Nasal Cannula Nasal Cannula Oxygen Flow Rate 2 2 10/02/22 15:01 10/02/22 15:10 10/02/22 15:10 Temperature Pulse Rate 87 Respiratory Rate 24 Blood Pressure 189/84 H 182/94 H Pulse Oximetry 99 Oxygen Delivery Method Nasal Cannula Oxygen Flow Rate 2 10/02/22 15:20 10/02/22 15:20 10/02/22 15:30 Temperature Pulse Rate 87 Respiratory Rate 23 Blood Pressure 179/84 H 179/81 H Pulse Oximetry 99 Oxygen Delivery Method Nasal Cannula Oxygen Flow Rate 2 10/02/22 15:30 10/02/22 15:40 10/02/22 15:40 Temperature Pulse Rate 87 90 Respiratory Rate 22 23 Blood Pressure 155/59 H Pulse Oximetry 99 100 Oxygen Delivery Method Nasal Cannula Nasal Cannula Oxygen Flow Rate 2 2 10/02/22 15:50 10/02/22 16:00 10/02/22 16:00 Temperature Pulse Rate 93 H Respiratory Rate 24 Blood Pressure 186/88 H 205/93 H Pulse Oximetry 100 Oxygen Delivery Method Nasal Cannula Oxygen Flow Rate 2 10/02/22 16:10 10/02/22 16:10 10/02/22 16:20 Temperature Pulse Rate 88 Respiratory Rate 24 Blood Pressure 198/86 H 188/103 H Pulse Oximetry 99 Oxygen Delivery Method Nasal Cannula Oxygen Flow Rate 2 10/02/22 16:20 10/02/22 16:30 10/02/22 16:30 Temperature Pulse Rate 104 H 82 Respiratory Rate 22 25 H Blood Pressure 191/84 H Pulse Oximetry 100 Oxygen Delivery Method Nasal Cannula Oxygen Flow Rate 2 10/02/22 17:08 Temperature Pulse Rate 88 Respiratory Rate 22 Blood Pressure 183/85 H Pulse Oximetry 98 Oxygen Delivery Method Room Air Oxygen Flow Rate MDM - Abdominal Pain <Porter Carson PA-C - Last Filed: 10/02/22 18:04> Lab Data 10/02/22 12:34 10/02/22 12:34 Labs: Lab Results 10/02/22 10/02/22 10/02/22 Range/Units 12:25 12:34 12:34 WBC 11.2 H (4.5-11.0) X10^3/uL RBC 5.32 H (4.0-5.2) X10^6/uL Hgb 14.4 (12.0-16.0) g/dL Hct 44.9 (36-46) % MCV 84.3 (80-100) fL MCH 27.1 (26-34) PG MCHC 32.2 (30-36) % RDW 16.6 H (11.6-14.8) % Plt Count 216 (150-400) X10^3/uL Neut % (Auto) 86.7 H (50-75) % Lymph % (Auto) 5.7 L (25-40) % [place] % (Auto) 4.5 (3-14) % Eos % (Auto) 2.7 (2-4) % Baso % (Auto) 0.4 (0-2) % Neut # (Auto) 9700 H (3408-3569) /uL Lymph # (Auto) 600 L (3027-9156) /uL [place] # (Auto) 500 (0-900) /uL Eos # (Auto) 300 (0-450) /uL Baso # (Auto) 0 (0-100) /uL PT 12.1 (10.1-12.7) SECONDS INR 1.1 (0.9-1.3) APTT 33 (26-36) SECONDS Sodium (137-145) mmol/L Potassium (3.4-5.1) mmol/L Chloride (98-107) mmol/L Carbon Dioxide (22-32) mmol/L BUN (7-17) mg/dL Creatinine (0.52-1.04) mg/dL Estimated GFR (>60) mL/min BUN/Creatinine Ratio (6-22) Glucose (80-110) mg/dL Calcium (8.4-10.2) mg/dL Magnesium (1.6-2.3) mg/dL Total Bilirubin (0.2-1.3) mg/dL AST (14-36) IU/L ALT (<35) IU/L Alkaline Phosphatase (38-126) U/L Total Creatine Kinase (30-135) U/L CK-MB (CK-2) CK-MB (CK-2) Rel Index Troponin I (0.01-0.034) ng/mL NT-Pro-B Natriuret Pep (<450) pg/mL Total Protein (6.3-8.2) g/dL Albumin (3.5-5.0) g/dL Globulin (1.7-4.1) g/dL Albumin/Globulin Ratio (1.0-2.8) Lipase (23-300) U/L Ur Bilirubin Confirm Negative (Negative) SARS-CoV-2 (PCR) (Negative) Blood Type Antibody Screen 10/02/22 10/02/22 10/02/22 Range/Units 12:34 12:34 12:34 WBC (4.5-11.0) X10^3/uL RBC (4.0-5.2) X10^6/uL Hgb (12.0-16.0) g/dL Hct (36-46) % MCV (80-100) fL MCH (26-34) PG MCHC (30-36) % RDW (11.6-14.8) % Plt Count (150-400) X10^3/uL Neut % (Auto) (50-75) % Lymph % (Auto) (25-40) % [place] % (Auto) (3-14) % Eos % (Auto) (2-4) % Baso % (Auto) (0-2) % Neut # (Auto) (6530-4586) /uL Lymph # (Auto) (2648-1229) /uL [place] # (Auto) (0-900) /uL Eos # (Auto) (0-450) /uL Baso # (Auto) (0-100) /uL PT (10.1-12.7) SECONDS INR (0.9-1.3) APTT (26-36) SECONDS Sodium 139 (137-145) mmol/L Potassium 4.6 (3.4-5.1) mmol/L Chloride 98 (98-107) mmol/L Carbon Dioxide 32 (22-32) mmol/L BUN 20 H (7-17) mg/dL Creatinine 0.85 (0.52-1.04) mg/dL Estimated GFR > 60 (>60) mL/min BUN/Creatinine Ratio 23.5 H (6-22) Glucose 114 H (80-110) mg/dL Calcium 10.4 H (8.4-10.2) mg/dL Magnesium 1.8 (1.6-2.3) mg/dL Total Bilirubin 1.1 (0.2-1.3) mg/dL AST 30 (14-36) IU/L ALT 21 (<35) IU/L Alkaline Phosphatase 81 (38-126) U/L Total Creatine Kinase 50 (30-135) U/L CK-MB (CK-2) TNP CK-MB (CK-2) Rel Index TNP Troponin I 0.021 (0.01-0.034) ng/mL NT-Pro-B Natriuret Pep 5440 H (<450) pg/mL Total Protein 7.6 (6.3-8.2) g/dL Albumin 4.4 (3.5-5.0) g/dL Globulin 3.2 (1.7-4.1) g/dL Albumin/Globulin Ratio 1.4 (1.0-2.8) Lipase 79 (23-300) U/L Ur Bilirubin Confirm (Negative) SARS-CoV-2 (PCR) Negative (Negative) Blood Type Antibody Screen 10/02/22 10/02/22 Range/Units 14:16 14:35 WBC (4.5-11.0) X10^3/uL RBC (4.0-5.2) X10^6/uL Hgb (12.0-16.0) g/dL Hct (36-46) % MCV (80-100) fL MCH (26-34) PG MCHC (30-36) % RDW (11.6-14.8) % Plt Count (150-400) X10^3/uL Neut % (Auto) (50-75) % Lymph % (Auto) (25-40) % [place] % (Auto) (3-14) % Eos % (Auto) (2-4) % Baso % (Auto) (0-2) % Neut # (Auto) (4613-5916) /uL Lymph # (Auto) (7900-1822) /uL [place] # (Auto) (0-900) /uL Eos # (Auto) (0-450) /uL Baso # (Auto) (0-100) /uL PT (10.1-12.7) SECONDS INR (0.9-1.3) APTT (26-36) SECONDS Sodium (137-145) mmol/L Potassium (3.4-5.1) mmol/L Chloride (98-107) mmol/L Carbon Dioxide (22-32) mmol/L BUN (7-17) mg/dL Creatinine (0.52-1.04) mg/dL Estimated GFR (>60) mL/min BUN/Creatinine Ratio (6-22) Glucose (80-110) mg/dL Calcium (8.4-10.2) mg/dL Magnesium (1.6-2.3) mg/dL Total Bilirubin (0.2-1.3) mg/dL AST (14-36) IU/L ALT (<35) IU/L Alkaline Phosphatase (38-126) U/L Total Creatine Kinase 49 (30-135) U/L CK-MB (CK-2) TNP CK-MB (CK-2) Rel Index TNP Troponin I 0.017 (0.01-0.034) ng/mL NT-Pro-B Natriuret Pep (<450) pg/mL Total Protein (6.3-8.2) g/dL Albumin (3.5-5.0) g/dL Globulin (1.7-4.1) g/dL Albumin/Globulin Ratio (1.0-2.8) Lipase (23-300) U/L Ur Bilirubin Confirm (Negative) SARS-CoV-2 (PCR) (Negative) Blood Type A Negative Antibody Screen Negative Point of care testing: Point of Care Testing Stool Occult Blood Negative Urine Dip Bedside Urine Glucose Negative Bedside Urine Bilirubin + 1 Bedside Urine Ketone - Negative Urine Specific Matthews 1.025 Bedside Urine Occult Blood - Negative Bedside Urine pH 6 Bedside Urine Protein - Negative Bedside Urine Urobilinogen - Negative Bedside Urine Nitrite - Negative Bedside Urine Leukocytes - Negative Esterase MDM Narrative Medical decision making narrative: 86-year-old female with past medical history NSTEMI, CHF, COPD, hypertension presents to the ED with 1 day of abdominal pain. Patient states she is feeling well and symptom-free after she had a massive bout of emesis and watery diarrhea. Concern for ACS versus CHF exacerbation versus ruptured AAA vs gastroenteritis versus dehydration versus other intra-abdominal pathology. Will obtain labs, lipase, troponin, BNP, chest x-ray, EKG, CT abdomen pelvis. EKG without acute ST-T changes or other acute findings. Chest x-ray shows mild chronic interstitial pulmonary fibrosis, emphysema, cardiomegaly, no acute changes. CT abdomen pelvis shows no bowel obstruction. The infrarenal aortic aneurysm with significant plaque has increased slightly in diameter from the last study on 12/21/2021. Discussed findings with patient and recommend vascular surgery consult. NT proBNP was elevated to 5440. Patient given 80 mg of Lasix IV which is twice her daily home dose. Discussed taking an extra dose daily of Lasix at home for the next few days, following up with Cardiology as soon as possible. Labs otherwise within normal limits. Patient's symptoms could likely be due to gastroenteritis, given the vomiting and 2 episodes of diarrhea in the ED. unlikely that the vomiting was related to the elevated BNP, given patient was very comfortable once she had the big bout emesis. Patient does not appear to be fluid overloaded or short of breath. ED return precautions were also discussed with patient and she verbalized understanding. Reviewed medical records: Yes <Dell Mccollum MD - Last Filed: 10/03/22 11:33> Medical Records Medical records narrative: I was immediately available in the department for consultation. Documentation has been reviewed. I agree with assessment and plan. Lab Data Labs: Lab Results 10/02/22 10/02/22 10/02/22 Range/Units 12:25 12:34 12:34 WBC 11.2 H (4.5-11.0) X10^3/uL RBC 5.32 H (4.0-5.2) X10^6/uL Hgb 14.4 (12.0-16.0) g/dL Hct 44.9 (36-46) % MCV 84.3 (80-100) fL MCH 27.1 (26-34) PG MCHC 32.2 (30-36) % RDW 16.6 H (11.6-14.8) % Plt Count 216 (150-400) X10^3/uL Neut % (Auto) 86.7 H (50-75) % Lymph % (Auto) 5.7 L (25-40) % [place] % (Auto) 4.5 (3-14) % Eos % (Auto) 2.7 (2-4) % Baso % (Auto) 0.4 (0-2) % Neut # (Auto) 9700 H (1902-5377) /uL Lymph # (Auto) 600 L (6111-4269) /uL [place] # (Auto) 500 (0-900) /uL Eos # (Auto) 300 (0-450) /uL Baso # (Auto) 0 (0-100) /uL PT 12.1 (10.1-12.7) SECONDS INR 1.1 (0.9-1.3) APTT 33 (26-36) SECONDS Sodium (137-145) mmol/L Potassium (3.4-5.1) mmol/L Chloride (98-107) mmol/L Carbon Dioxide (22-32) mmol/L BUN (7-17) mg/dL Creatinine (0.52-1.04) mg/dL Estimated GFR (>60) mL/min BUN/Creatinine Ratio (6-22) Glucose (80-110) mg/dL Calcium (8.4-10.2) mg/dL Magnesium (1.6-2.3) mg/dL Total Bilirubin (0.2-1.3) mg/dL AST (14-36) IU/L ALT (<35) IU/L Alkaline Phosphatase (38-126) U/L Total Creatine Kinase (30-135) U/L CK-MB (CK-2) CK-MB (CK-2) Rel Index Troponin I (0.01-0.034) ng/mL NT-Pro-B Natriuret Pep (<450) pg/mL Total Protein (6.3-8.2) g/dL Albumin (3.5-5.0) g/dL Globulin (1.7-4.1) g/dL Albumin/Globulin Ratio (1.0-2.8) Lipase (23-300) U/L Ur Bilirubin Confirm Negative (Negative) SARS-CoV-2 (PCR) (Negative) Blood Type Antibody Screen 10/02/22 10/02/22 10/02/22 Range/Units 12:34 12:34 12:34 WBC (4.5-11.0) X10^3/uL RBC (4.0-5.2) X10^6/uL Hgb (12.0-16.0) g/dL Hct (36-46) % MCV (80-100) fL MCH (26-34) PG MCHC (30-36) % RDW (11.6-14.8) % Plt Count (150-400) X10^3/uL Neut % (Auto) (50-75) % Lymph % (Auto) (25-40) % [place] % (Auto) (3-14) % Eos % (Auto) (2-4) % Baso % (Auto) (0-2) % Neut # (Auto) (3732-9540) /uL Lymph # (Auto) (3654-1654) /uL [place] # (Auto) (0-900) /uL Eos # (Auto) (0-450) /uL Baso # (Auto) (0-100) /uL PT (10.1-12.7) SECONDS INR (0.9-1.3) APTT (26-36) SECONDS Sodium 139 (137-145) mmol/L Potassium 4.6 (3.4-5.1) mmol/L Chloride 98 (98-107) mmol/L Carbon Dioxide 32 (22-32) mmol/L BUN 20 H (7-17) mg/dL Creatinine 0.85 (0.52-1.04) mg/dL Estimated GFR > 60 (>60) mL/min BUN/Creatinine Ratio 23.5 H (6-22) Glucose 114 H (80-110) mg/dL Calcium 10.4 H (8.4-10.2) mg/dL Magnesium 1.8 (1.6-2.3) mg/dL Total Bilirubin 1.1 (0.2-1.3) mg/dL AST 30 (14-36) IU/L ALT 21 (<35) IU/L Alkaline Phosphatase 81 (38-126) U/L Total Creatine Kinase 50 (30-135) U/L CK-MB (CK-2) TNP CK-MB (CK-2) Rel Index TNP Troponin I 0.021 (0.01-0.034) ng/mL NT-Pro-B Natriuret Pep 5440 H (<450) pg/mL Total Protein 7.6 (6.3-8.2) g/dL Albumin 4.4 (3.5-5.0) g/dL Globulin 3.2 (1.7-4.1) g/dL Albumin/Globulin Ratio 1.4 (1.0-2.8) Lipase 79 (23-300) U/L Ur Bilirubin Confirm (Negative) SARS-CoV-2 (PCR) Negative (Negative) Blood Type Antibody Screen 10/02/22 10/02/22 Range/Units 14:16 14:35 WBC (4.5-11.0) X10^3/uL RBC (4.0-5.2) X10^6/uL Hgb (12.0-16.0) g/dL Hct (36-46) % MCV (80-100) fL MCH (26-34) PG MCHC (30-36) % RDW (11.6-14.8) % Plt Count (150-400) X10^3/uL Neut % (Auto) (50-75) % Lymph % (Auto) (25-40) % [place] % (Auto) (3-14) % Eos % (Auto) (2-4) % Baso % (Auto) (0-2) % Neut # (Auto) (6932-2961) /uL Lymph # (Auto) (0904-9048) /uL [place] # (Auto) (0-900) /uL Eos # (Auto) (0-450) /uL Baso # (Auto) (0-100) /uL PT (10.1-12.7) SECONDS INR (0.9-1.3) APTT (26-36) SECONDS Sodium (137-145) mmol/L Potassium (3.4-5.1) mmol/L Chloride (98-107) mmol/L Carbon Dioxide (22-32) mmol/L BUN (7-17) mg/dL Creatinine (0.52-1.04) mg/dL Estimated GFR (>60) mL/min BUN/Creatinine Ratio (6-22) Glucose (80-110) mg/dL Calcium (8.4-10.2) mg/dL Magnesium (1.6-2.3) mg/dL Total Bilirubin (0.2-1.3) mg/dL AST (14-36) IU/L ALT (<35) IU/L Alkaline Phosphatase (38-126) U/L Total Creatine Kinase 49 (30-135) U/L CK-MB (CK-2) TNP CK-MB (CK-2) Rel Index TNP Troponin I 0.017 (0.01-0.034) ng/mL NT-Pro-B Natriuret Pep (<450) pg/mL Total Protein (6.3-8.2) g/dL Albumin (3.5-5.0) g/dL Globulin (1.7-4.1) g/dL Albumin/Globulin Ratio (1.0-2.8) Lipase (23-300) U/L Ur Bilirubin Confirm (Negative) SARS-CoV-2 (PCR) (Negative) Blood Type A Negative Antibody Screen Negative Point of care testing: Point of Care Testing Stool Occult Blood Negative Urine Dip Bedside Urine Glucose Negative Bedside Urine Bilirubin + 1 Bedside Urine Ketone - Negative Urine Specific Matthews 1.025 Bedside Urine Occult Blood - Negative Bedside Urine pH 6 Bedside Urine Protein - Negative Bedside Urine Urobilinogen - Negative Bedside Urine Nitrite - Negative Bedside Urine Leukocytes - Negative Esterase Discharge Plan Departure Patient Disposition: Home Clinical Impression: Abdominal pain Instructions: DI for Abdominal Pain-Adult Activity Restrictions/Additional Instructions: You were evaluated in the ED today for abdominal pain, nausea, vomiting, diarrhea. Your labs, chest x-ray, EKG, CT abdomen pelvis did not show any acute findings that would explain your symptoms today. Your CT abdomen pelvis did show the 2 abdominal aneurysms that are slightly enlarged from last year. It is recommended that you follow-up with the vascular surgeon for further evaluation. Your NT proBNP, which is a marker heart failure was elevated today, you were given a extra dose of Lasix for this. Please follow-up with your administrative representative as soon as possible for further evaluation. Return to the ED if you have worsening abdominal pain, chest pain, persistent vomiting, shortness of breath. Prescriptions: No Action aspirin 81 MG tablet,delayed release (DR/EC) 81 mg PO QDAY Qty: 0 Rx Instructions: morning omega 4-vjq-jma-fish oil [Fish Oil] 1,000 mg (120 mg-180 mg) Capsule 1,000 mg PO DAILY nitroglycerin [Nitrostat] 0.4 mg Tablet, Sublingual 0.4 mg SUBLINGUAL Q5-15M PRN (Reason: Chest Pain) vitamin E 400 unit Capsule 400 unit PO DAILY multivitamin Tablet,Chewable 1 tab PO DAILY atorvastatin [Lipitor] 20 mg tablet 40 mg PO QPM Label Comments: patient states she forgets to take diltiazem HCl [Cartia XT] 120 mg capsule,extended release 24hr 120 mg PO QAM Label Comments: TAKE 1 CAPSULE BY MOUTH ONCE DAILY furosemide 40 mg tablet 40 mg PO QAM Label Comments: pt instructed to stop medications. d/c 05/10/22 levothyroxine 88 mcg tablet 88 mcg PO QAM Label Comments: TAKE 1 TABLET BY MOUTH ONCE DAILY isosorbide mononitrate 120 mg tablet extended release 24 hr 120 mg PO QAM Label Comments: TAKE 1 TABLET BY MOUTH ONCE DAILY IN THE MORNING lisinopril 40 mg tablet 20 mg PO QAM Label Comments: TAKE 1 TABLET BY MOUTH ONCE DAILY clopidogrel 75 mg tablet 75 mg PO QAM ipratropium-albuterol 0.5 mg-3 mg(2.5 mg base)/3 mL solution for nebulization INHALATION PRN (Reason: Shortness Of Breath Or Wheezing) metoprolol succinate 25 mg tablet extended release 24 hr 25 mg PO DAILY Label Comments: pt has not started, 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 take 10ml by mouth every 4 hrs as needed for cough Referrals: Catie Storm ARNP [Primary Care Provider] - Stand Alone Forms: Patient Portal/API
--- NOTE | 2022-10-02 13:31 | DI.CT.S_ITS ---
PROCEDURE: CT ABDOMEN PELVIS W CON INDICATIONS: vomiting TECHNIQUE: After the administration of intravenous contrast, axial sections acquired from the lung bases to the pubic symphysis. Coronal and sagittal reformats were performed. For radiation dose reduction, the following was used: automated exposure control, adjustment of mA and/or kV according to patient size. COMPARISON: [facility], CT, CT ABDOMEN PELVIS W CON, 12/21/2021, 22:35. FINDINGS: Image quality: Excellent. Lung bases: Moderate centrilobular emphysema. Heart: Cardiomegaly. ABDOMEN: Liver: Unremarkable. Gallbladder: Absent. Biliary ducts: Within normal limits, status post cholecystectomy. Pancreas: Unremarkable. Spleen: Unremarkable. Adrenal Glands: Unremarkable. Kidneys and Ureters: No complex cystic lesions requiring further follow-up. Stomach and Bowel: Stomach, small bowel loops, and colon are unremarkable. Moderate hiatal hernia. Peritoneum: No abnormal intraperitoneal fluid. No free air. Ventral Wall: Small umbilical hernia containing fat. Abdominal Nodes: No retroperitoneal or mesenteric adenopathy by size criteria. Vessels: Infrarenal aortic aneurysm significant plaque present. Maximum diameter measures 6.3 x 5.2 cm, previously 6.1 x 4.7 cm on 12/21/2021. PELVIS: Pelvic Organs: Unremarkable. Bladder: Unremarkable. Pelvic Nodes: No enlarged lymph nodes. Miscellaneous: Left inguinal hernia containing fat. Bones: Unremarkable. IMPRESSION: No bowel obstruction. Infrarenal aortic aneurysm significant plaque present. Maximum diameter measures 6.3 x 5.2 cm, previously 6.1 x 4.7 cm on 12/21/2021. Vascular surgery referral is recommended, if not performed in the past. Dictated by: Amarjit Duenas M.D. on 10/02/2022 at 14:45 Approved by: Amarjit Duenas M.D. on 10/02/2022 at 14:53
[2022-10-02 13:35] LABS: NT-proBNP (BNP-Adult 18+) 5440 pg/mL (<450)
--- NOTE | 2022-10-02 13:38 | PC.NURSE ---
pt had 30 sec run of trigeminy with Afib underlying at about 1330, that resolved to a sinus rhythm with consisitent p waves after only a few minutes. bp stable during episode. pt denies new sx at time but remains chest/abd pain. provider notified
[2022-10-02 15:02] LABS: Creatine Kinase 49 U/L (30-135)
[2022-10-02 15:15] LABS: Troponin I 0.017 ng/mL (0.01-0.034)
[2022-10-02] MEDS: FUROSEMIDE 80 MG in SODIUM CHLORIDE 0.9% 50 ML 116 MG IV (15:58)
== END 2022-10-02 17:15 | disposition home or self-care (01) ==
PROVIDERS: Emergency Medicine; Emergency Provider Student in an Organized Health Care Education/Training Program; PCP Nurse Practitioner Family
DX: R10.9 Unspecified abdominal pain (principal); R07.9 Chest pain, unspecified; Z20.822 Contact with and (suspected) exposure to COVID-19
CPT/HCPCS: 36415; 71045; 74177; 80053; 81003; 82272; 82550; 83690; 83735; 83880; 84484; 85025; 85610; 85730; 86850; 86900; 86901; 87635; 93005; 93010; 96365; 96375; 99284; 99285; C9803; J1940; J2405; Q9967

== ENCOUNTER 2022-10-25 17:33 | Emergency (ER) | payer OTHER, SELFPAY ==
[2021-12-22 01:28] VITALS: BMI 25.3
[2022-10-25 17:49] VITALS: BP 139/71; PULSE 74; RESP 16; TEMP 36.6; O2SAT 97; BMI 25.4
== END 2022-10-25 19:19 | disposition left against medical advice (07) ==
PROVIDERS: Emergency Provider Emergency Medicine; PCP Nurse Practitioner Family
CPT/HCPCS: 99281

== ENCOUNTER → 2022-11-11 16:41 | Outpatient (CLI) | payer OTHER, SELFPAY ==
[2021-12-22 01:28] VITALS: BMI 25.3
--- NOTE | 2022-11-11 | DI.RAD.S_ITS ---
PROCEDURE: XR SHOULDER LT MIN 2V INDICATIONS: Fall TECHNIQUE: 3 views of the shoulder were acquired. COMPARISON: None. FINDINGS: Bones: No fractures or dislocations. Moderate acromioclavicular joint osteoarthritic changes are seen. Mild glenohumeral joint osteoarthritic changes also noted. No suspicious bony lesions. Visualized ribs appear intact. Soft tissues: No suspicious soft tissue calcifications. 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 No shoulder fracture or dislocation. No gross soft tissue abnormalities. Dictated by: Ronaldo Santana M.D. on 11/11/2022 at 18:05 Approved by: Ronaldo Santana M.D. on 11/11/2022 at 18:06
--- NOTE | 2022-11-11 | DI.RAD.S_ITS ---
PROCEDURE: XR KNEE LT 3V INDICATIONS: Fall TECHNIQUE: 3 views of the knee were acquired. COMPARISON: None. FINDINGS: Bones: No fractures or dislocations. No patellar subluxation. [id number] tricompartmental osteoarthritis is seen most notably in medial femoral tibial compartment. No suspicious bony lesions. Soft tissues: Small to moderate suprapatellar joint effusion is seen. Chondrocalcinosis in medial femoral tibial compartment is also noted. IMPRESSION: No acute left knee fracture or dislocation. [id number] tricompartmental osteoarthritis and small to moderate joint effusion. Dictated by: Ronaldo Santana M.D. on 11/11/2022 at 18:04 Approved by: Ronaldo Santana M.D. on 11/11/2022 at 18:05
== END ==
PROVIDERS: PCP Nurse Practitioner Family; Referring Provider Family Medicine; Visit Provider Family Medicine
DX: M17.12 Unilateral primary osteoarthritis, left knee (principal); M19.012 Primary osteoarthritis, left shoulder; M25.512 Pain in left shoulder; M25.562 Pain in left knee; M25.462 Effusion, left knee
CPT/HCPCS: 73030; 73562

== ENCOUNTER 2022-12-06 18:07 | Emergency (ER) | payer OTHER, SELFPAY ==
[2021-12-22 01:28] VITALS: BMI 25.3
[2022-12-06 18:15] VITALS: BP 141/61; PULSE 84; RESP 20; TEMP 36.7; O2SAT 96; BMI 25.6
--- NOTE | 2022-12-06 18:21 | DI.RAD.S_ITS ---
PROCEDURE: XR CHEST 1V INDICATIONS: chest pain TECHNIQUE: One view of the chest was acquired. COMPARISON: [facility], CR, XR CHEST 1V, 10/02/2022, 13:21. FINDINGS: Surgical changes and devices: Status post median sternotomy. Lungs and pleura: Lungs are clear. No pleural effusions or pneumothorax. Mediastinum: Normal mediastinal contours. The aorta is tortuous. The heart is enlarged, stable. Interstitial prominence is unchanged compared to the prior study and is likely chronic. Bones and chest wall: No suspicious bony lesions. Overlying soft tissues appear unremarkable. IMPRESSION: 1. No acute cardiopulmonary abnormality. 2. Stable cardiomegaly. Dictated by: Redd Shah M.D. on 12/06/2022 at 19:57 Approved by: Redd Shah M.D. on 12/06/2022 at 19:58
[2022-12-06 18:37] LABS: Add Manual Diff / Slide Review NO; Basophils Absolute Auto 100 /uL (0-100); Basophils Percent Auto 0.4 % (0-2); Eosinophils Absolute Auto 100 /uL (0-450); Eosinophils Percent Auto 0.9 % (2-4); Hematocrit 41.3 % (36-46); Hemoglobin 13.8 g/dL (12.0-16.0); Lymphocytes Absolute Auto 1200 /uL (1100-4500); Lymphocytes Percent Auto 9.2 % (25-40); Mean Corpuscular HGB Conc 33.6 % (30-36); Mean Corpuscular Hemoglobin 28.7 PG (26-34); Mean Corpuscular Volume 85.4 fL (80-100); Monocytes Absolute Auto 700 /uL (0-900); Monocytes Percent Auto 5.1 % (3-14); Neutrophils Absolute Auto 10800 /uL (1500-7000); Neutrophils Percent Auto 84.4 % (50-75); Platelet Count 244 X10^3/uL (150-400); Red Blood Cell Count 4.83 X10^6/uL (4.0-5.2); Red Cell Distribution Width 16.3 % (11.6-14.8); White Blood Cell Count 12.8 X10^3/uL (4.5-11.0)
[2022-12-06 18:42] LABS: INR 1.1 (0.9-1.3); Prothrombin Time 12.8 SECONDS (10.1-12.7)
[2022-12-06 18:45] LABS: PTT Partial Thromboplastin Tim 30 SECONDS (26-36)
[2022-12-06 18:49] LABS: Alanine Aminotransferase 22 IU/L (<35); Albumin 4.1 g/dL (3.5-5.0); Albumin Globulin Ratio 1.3 (1.0-2.8); Alkaline Phosphatase 76 U/L (38-126); Aspartate Aminotransferase 28 IU/L (14-36); BUN Creatinine Ratio 24.5 (6-22); Bilirubin Total 2.7 mg/dL (0.2-1.3); Blood Urea Nitrogen 26 mg/dL (7-17); Carbon Dioxide 33 mmol/L (22-32); Chloride 95 mmol/L (98-107); Creatine Kinase 30 U/L (30-135); Estimated Glomerular Filt Rate 51 mL/min (>60); Globulin 3.2 g/dL (1.7-4.1); Glucose 167 mg/dL (80-110); HEMOLYSIS < 15 (0-50); Lipase 45 U/L (23-300); Magnesium 1.9 mg/dL (1.6-2.3); Sodium 135 mmol/L (137-145); Total Protein 7.3 g/dL (6.3-8.2)
[2022-12-06 19:01] LABS: Troponin I 0.017 ng/mL (0.01-0.034)
--- NOTE | 2022-12-06 19:11 | ED_ITS ---
HPI - Chest Pain General Chief Complaint: Chest Pain Stated Complaint: has COPD, sent [facility] Time Seen by Provider: 12/06/22 19:10 Source: patient Mode of arrival: Ambulatory Limitations: no limitations History of Present Illness HPI narrative: This is an 87-year-old with history of COPD on 2 L nasal cannula 24 hours a day, CABG, CHF, hypertension, dyslipidemia anticoagulated on aspirin and Plavix. Patient states that she had stopped her prednisone on the after a recent flare. She is had a little bit increased shortness of breath and heaviness in her substernal chest for the past 1-2 days and while walking at [employer] the other day while shopping felt a little bit more heaviness. She did note that she forgets to use her inhaler frequently and has not been using that. She denies any fevers, no chills, no cold, cough or congestion she is had some more frequent belching. She states it is always substernal not radiating it is worse with exertion she has a little bit more shortness of breath. She does not get diaphoretic with it. No nausea no vomiting. No abdominal back or flank pain, no issues with bowel movements. She is on water pills so she urinates frequently but states no dysuria, urgency or other changes. Patient has not had any new swelling in her extremities. She states she went to the walk-in clinic because she could not get a hold of her primary care at the [employer] referral. They recommended she come for evaluation but also told her to try her inhaler. She took took puffs on the way over here and it helped her symptoms. Patient does use Advair twice daily, she states she typically uses her albuterol couple times a week but typically also forgets to use it. She is on aspirin, Plavix, statin medication for hypothyroidism, blood pressure. Patient states she has multiple allergies. She smoked for about 17 years quitting in the 70s. No alcohol, no illicit. 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 Her primary care is Dr. Catie Storm. She has not been following with pulmonology regularly but has been seen, she sees cardiology. Related Data Home Medications Medication Instructions Recorded Confirmed aspirin 81 mg tablet,delayed 81 mg PO QDAY ##0 07/11/17 05/20/22 release multivitamin 1 tab PO DAILY 07/07/18 05/20/22 nitroglycerin 0.4 mg sublingual 0.4 mg sublingual Q5-15M PRN Chest 07/07/18 05/20/22 tablet (Nitrostat) Pain omega 6-jjk-lvi-fish oil 1,000 mg 1,000 mg PO DAILY 07/07/18 05/20/22 (120 mg-180 mg) capsule (Fish Oil) vitamin E 268 mg (400 unit) capsule 400 unit PO DAILY 07/07/18 05/20/22 atorvastatin 20 mg tablet (Lipitor) 40 mg PO QPM 05/04/22 05/20/22 diltiazem HCl 120 mg 120 mg PO QAM 05/04/22 05/20/22 capsule,extended release 24 hr (Cartia XT) furosemide 40 mg tablet 40 mg PO QAM 05/04/22 05/04/22 isosorbide mononitrate 120 mg 120 mg PO QAM 05/04/22 05/20/22 tablet,extended release 24 hr levothyroxine 88 mcg tablet 88 mcg PO QAM 05/04/22 05/20/22 lisinopril 40 mg tablet 20 mg PO QAM 05/04/22 05/20/22 Flonase PRN Dry Nasal Passages 05/20/22 Robitussin DM To Go 10 ml PO PRN Cough 05/20/22 albuterol 90 mcg/actuation aerosol 90 mcg inhalation PRN Shortness Of 05/20/22 inhaler Breath clopidogrel 75 mg tablet 75 mg PO QAM 05/20/22 05/20/22 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 10 mg tablet 10 mg PO TID PRN Muscle Spasm 05/20/22 05/20/22 ipratropium 0.5 mg-albuterol 3 mg ml inhalation PRN Shortness Of 05/20/22 (2.5 mg base)/3 mL nebulization Breath Or Wheezing soln metoprolol succinate 25 mg 25 mg PO DAILY 05/20/22 05/20/22 tablet,extended release 24 hr torsemide 20 mg tablet 20 mg PO DAILY 05/20/22 05/20/22 Previous Rx's Medication Instructions Recorded prednisone 10 mg tablets in a dose See Rx Instructions PO .COMPLEX 12/06/22 pack #21 ea Allergies Allergy/AdvReac Type Severity Reaction Status Date / Time acarbose Allergy Intermediate Abdominal Verified 12/06/22 18:21 Pain amlodipine Allergy Intermediate Verified 12/06/22 18:21 chlorthalidone Allergy Intermediate Redness of Verified 12/06/22 18:21 Skin doxazosin [From Cardura] Allergy Intermediate Rash Verified 12/06/22 18:21 doxycycline Allergy Intermediate Rash Verified 12/06/22 18:21 gemfibrozil Allergy Intermediate Rash Verified 12/06/22 18:21 levofloxacin Allergy Intermediate Rash Verified 12/06/22 18:21 losartan Allergy Intermediate Rash Verified 12/06/22 18:21 montelukast [From Singulair] Allergy Intermediate Difficulty Verified 12/06/22 18:21 Breathing nifedipine Allergy Intermediate Chills Verified 12/06/22 18:21 Sulfa (Sulfonamide Allergy Intermediate rash Verified 12/06/22 18:21 Antibiotics) sulfamethoxazole Allergy Intermediate Rash Verified 12/06/22 18:21 [From Bactrim] trimethoprim [From Bactrim] Allergy Intermediate Rash Verified 12/06/22 18:21 budesonide [From Symbicort] Allergy Mild Anxiety Verified 12/06/22 18:21 carvedilol Allergy Mild Rash Verified 12/06/22 18:21 choline fenofibrate Allergy Mild Gastrointestinal Verified 12/06/22 18:21 [From Trilipix] Upset formoterol [From Symbicort] Allergy Mild Anxiety Verified 12/06/22 18:21 metoprolol AdvReac Intermediate Verified 12/06/22 18:21 Review of Systems Review of Systems ROS Unobtainable: All systems reviewed & are unremarkable except as noted in HPI and below Patient History Medical History (Updated 12/06/22 @ 21:15 by Shayla Kaba DO) Aneurysm of infrarenal abdominal aorta Bilateral carpal tunnel syndrome CAD (coronary artery disease) COPD (chronic obstructive pulmonary disease) with emphysema Elevated TSH HTN (hypertension) Hyperlipidemia Unstable angina Valvular heart disease Surgical History H/O hysterectomy with oophorectomy H/O three vessel coronary artery bypass Hx of heart artery stent Status post cholecystectomy Family History Father Lung cancer Mother COPD (chronic obstructive pulmonary disease) Social History household members: family and children Smoking Status: Former smoker alcohol intake: never Smoking Status: Former smoker tobacco type: cigarettes alcohol intake frequency: 0-2 drinks per day Substance Use Type: does not use Exam Narrative Exam Narrative: GENERAL: Alert and oriented x three, elderly female in no acute distress. HEENT: Head normocephalic, atraumatic, EOMI, pupils reactive, face symmetric, moist mucous membranes NECK: Supple, full range of motion CARDIOVASCULAR: Regular rate and rhythm without murmurs, rubs or gallops. No JVD. No swelling bilateral lower extremities. RESPIRATORY: Breath sounds equal bilaterally, no wheezes rales or rhonchi. No tachypnea. Speaks in full sentences. Easy work of breathing. ABDOMEN: Soft, nontender. Normoactive bowel sounds all 4 quadrants. No guarding or rebound, rigidity, no mass : No CVA tenderness EXTREMITIES: Normal range of motion, no clubbing or edema. 2+ pulses bilaterally lower extremities. Neurovascularly intact NEUROLOGICAL: Cranial nerves II through XII grossly intact. Moving all extremities SKIN: Warm, dry, no petechiae, no rashes or lesions. Initial Vital Signs Initial Vital Signs: Vital Signs Temperature 98.1 F 12/06/22 18:15 Pulse Rate 84 12/06/22 18:15 Respiratory Rate 20 12/06/22 18:15 Blood Pressure 141/61 H 12/06/22 18:15 Pulse Oximetry 96 12/06/22 18:15 Oxygen Delivery Method Room Air 12/06/22 18:15 Course Orders Ordered: ED Orders 12/06/22 21:00 COVID19 -Nasal RAPID Stat Discontinued Medications Aspirin (Aspirin 81 Mg Chew Tab) 324 mg PO NOW ONE Stop: 12/06/22 18:22 Last Admin: 12/06/22 19:28 Dose: Not Given Documented By: KLS Vital Signs Vital signs: Vital Signs - 8 hr 12/06/22 21:40 Pulse Rate 75 Respiratory Rate 18 Blood Pressure 163/74 H Pulse Oximetry 97 Oxygen Delivery Method Nasal Cannula Oxygen Flow Rate 2 MDM - Chest Pain Lab Data 12/06/22 18:30 12/06/22 18:30 Labs: Lab Results 12/06/22 12/06/22 12/06/22 Range/Units 18:30 18:30 18:30 WBC 12.8 H (4.5-11.0) X10^3/uL RBC 4.83 (4.0-5.2) X10^6/uL Hgb 13.8 (12.0-16.0) g/dL Hct 41.3 (36-46) % MCV 85.4 (80-100) fL MCH 28.7 (26-34) PG MCHC 33.6 (30-36) % RDW 16.3 H (11.6-14.8) % Plt Count 244 (150-400) X10^3/uL Neut % (Auto) 84.4 H (50-75) % Lymph % (Auto) 9.2 L (25-40) % Taney % (Auto) 5.1 (3-14) % Eos % (Auto) 0.9 L (2-4) % Baso % (Auto) 0.4 (0-2) % Neut # (Auto) 37086 H (5177-4291) /uL Lymph # (Auto) 1200 (8871-5301) /uL Taney # (Auto) 700 (0-900) /uL Eos # (Auto) 100 (0-450) /uL Baso # (Auto) 100 (0-100) /uL PT 12.8 H (10.1-12.7) SECONDS INR 1.1 (0.9-1.3) APTT 30 (26-36) SECONDS Sodium 135 L (137-145) mmol/L Potassium 4.0 (3.4-5.1) mmol/L Chloride 95 L (98-107) mmol/L Carbon Dioxide 33 H (22-32) mmol/L BUN 26 H (7-17) mg/dL Creatinine 1.06 H (0.52-1.04) mg/dL Estimated GFR 51 L (>60) mL/min BUN/Creatinine Ratio 24.5 H (6-22) Glucose 167 H (80-110) mg/dL Calcium 10.0 (8.4-10.2) mg/dL Magnesium 1.9 (1.6-2.3) mg/dL Total Bilirubin 2.7 H (0.2-1.3) mg/dL AST 28 (14-36) IU/L ALT 22 (<35) IU/L Alkaline Phosphatase 76 (38-126) U/L Total Creatine Kinase 30 (30-135) U/L CK-MB (CK-2) TNP CK-MB (CK-2) Rel Index TNP Troponin I 0.017 (0.01-0.034) ng/mL NT-Pro-B Natriuret Pep (<450) pg/mL Total Protein 7.3 (6.3-8.2) g/dL Albumin 4.1 (3.5-5.0) g/dL Globulin 3.2 (1.7-4.1) g/dL Albumin/Globulin Ratio 1.3 (1.0-2.8) Lipase 45 (23-300) U/L SARS-CoV-2 (PCR) (Negative) 12/06/22 12/06/22 12/06/22 Range/Units 18:30 20:30 21:00 WBC (4.5-11.0) X10^3/uL RBC (4.0-5.2) X10^6/uL Hgb (12.0-16.0) g/dL Hct (36-46) % MCV (80-100) fL MCH (26-34) PG MCHC (30-36) % RDW (11.6-14.8) % Plt Count (150-400) X10^3/uL Neut % (Auto) (50-75) % Lymph % (Auto) (25-40) % Taney % (Auto) (3-14) % Eos % (Auto) (2-4) % Baso % (Auto) (0-2) % Neut # (Auto) (7878-2011) /uL Lymph # (Auto) (3540-7109) /uL Taney # (Auto) (0-900) /uL Eos # (Auto) (0-450) /uL Baso # (Auto) (0-100) /uL PT (10.1-12.7) SECONDS INR (0.9-1.3) APTT (26-36) SECONDS Sodium (137-145) mmol/L Potassium (3.4-5.1) mmol/L Chloride (98-107) mmol/L Carbon Dioxide (22-32) mmol/L BUN (7-17) mg/dL Creatinine (0.52-1.04) mg/dL Estimated GFR (>60) mL/min BUN/Creatinine Ratio (6-22) Glucose (80-110) mg/dL Calcium (8.4-10.2) mg/dL Magnesium (1.6-2.3) mg/dL Total Bilirubin (0.2-1.3) mg/dL AST (14-36) IU/L ALT (<35) IU/L Alkaline Phosphatase (38-126) U/L Total Creatine Kinase (30-135) U/L CK-MB (CK-2) CK-MB (CK-2) Rel Index Troponin I 0.021 (0.01-0.034) ng/mL NT-Pro-B Natriuret Pep 2300 H (<450) pg/mL Total Protein (6.3-8.2) g/dL Albumin (3.5-5.0) g/dL Globulin (1.7-4.1) g/dL Albumin/Globulin Ratio (1.0-2.8) Lipase (23-300) U/L SARS-CoV-2 (PCR) Negative (Negative) Imaging Data Chest x-ray: Radiologist's Impression: [address] [address] XRay Report Signed Patient: Lindsay Aguilar MR#: [id number] : 1935 Acct:[id number] Age/Sex: 87 / F Date of Service: 12/06/22 Loc: Accession Number: [id number] ?? Procedure: XR chest 1V Ordering Provider: Shayla Kaba D.O. PROCEDURE:? XR CHEST 1V ? INDICATIONS:? chest pain ? TECHNIQUE:? One view of the chest was acquired.? ? COMPARISON:? [facility], [place], XR CHEST 1V, 10/02/2022, 13:21. ? FINDINGS:? ? Surgical changes and devices:? Status post median sternotomy. ? Lungs and pleura:? Lungs are clear.? No pleural effusions or pneumothorax.? ? Mediastinum:? Normal mediastinal contours.? The aorta is tortuous.? The heart is enlarged, stable. Interstitial prominence is unchanged compared to the prior study and is likely chronic.? ? Bones and chest wall:? No suspicious bony lesions.? Overlying soft tissues appear unremarkable.? ? IMPRESSION:? 1. No acute cardiopulmonary abnormality. 2. Stable cardiomegaly.? ? ? Dictated by: Redd Shah M.D. on 12/06/2022 at 19:57 ? ? Approved by: Redd Shah M.D. on 12/06/2022 at 19:58?? ECG Data Attestation: I personally reviewed and interpreted this ECG as follows: Prior ECG tracings: available for review Interpretation: Patient has sinus rhythm occasional PVC, right bundle-branch, LVH, patient has Q-waves 3 and AVF. Lateral leads. Patient has EKG from 10/02/2022 which appears similar with no acute or dynamic changes. EKG2/sinus rhythm, premature atrial complex, right bundle-branch, LVH. Rate of 74 SD 172 QRS of 158 QTC of 479. Patient does have Q-wave in lead 3 and AVF. Lateral leads this appears similar to today's earlier EKG and prior. MDM Narrative Medical decision making narrative: This is an 87-year-old female who comes with complaint of shortness of breath and a little bit of chest pressure. She notes it got better after she used her inhaler. She did stop her prednisone on December 03. Patient states she always has some shortness of breath, and does sometimes have a heavy feeling in her chest with exertion. She denies diaphoresis, she states it does seem to get better when she uses her inhaler. She tried to reach her physician was not able to see them was referred to the walk-in clinic who sent her here for evaluation. She has a history significant for COPD on 2 L nasal cannula at all times, CABG, CHF she is on her Advair b.i.d., she has stopped prednisone on the 03 of December she is not wheezy initially on exam but had used 2 puffs of her albuterol just before arriving which he states has significantly improved her symptoms. She de nies any symptoms currently. Patient does have a cardiac history. Initial workup CBC, coags, CMP shows creatinine of 1.06 slightly elevated than her usual, normal electrolytes no significant anemia, no leukocytosis, bilirubin slightly elevated 2.7 has been intermittently elevated but she is asymptomatic otherwise negative LFTs. Initial troponin is negative. Chest x-ray shows no acute change. BNP is elevated in the 2000 range but is improved from the 5000 range she was at previously. Repeat EKG show no acute changes. Troponin is negative. Discussed with patient she does have cardiac risk factors but I suspect her symptoms are more secondary to her airway disease. Plan for patient to continue to use albuterol as needed. She is not had any increasing O2 requirements and does not region on examination but had used her albuterol prior to arrival seemed to improve her symptoms. Patient was given prescription for prednisone if she is having any worsening change. Also asked her to follow-up as her renal function slightly increased. Discharge Plan Departure Patient Disposition: Home Clinical Impression: Acute exacerbation of chronic obstructive pulmonary disease Instructions: Chronic Obstructive Pulmonary Disease (Alternative Therapy) Activity Restrictions/Additional Instructions: Please follow-up for recheck. Your renal function was slightly elevated today follow up with your physician to make sure it is not continuing to increase. Continue your home medications as prescribed. Continue to use her albuterol you can do 2 puffs every 4 hours as needed. If you are needing to use your albuterol more than 1 or 2 times daily or have increasing frequency of use please start the prednisone script provided. Prescription sent to [facility] in [place]. Please return for new or worsening chest pain or pressure, shortness of breath, lightheadedness or passing out, swelling in her extremities or other new or concerning symptoms. Prescriptions: New prednisone 10 mg tablets,dose pack See Rx Instructions .ROUTE .COMPLEX Qty: 21 0RF Rx Instructions: Take 6 tablets p.o. x1 day, then 5 tablets p.o. x1 day, then 4 tablets p.o. x1 day, then 3 tablets p.o. x1 day, then 2 tablets p.o. x1 day, then 1 tablet p.o. x1 day No Action aspirin 81 MG tablet,delayed release (DR/EC) 81 mg PO QDAY Qty: 0 Rx Instructions: morning omega 8-uwa-vwr-fish oil [Fish Oil] 1,000 mg (120 mg-180 mg) Capsule 1,000 mg PO DAILY nitroglycerin [Nitrostat] 0.4 mg Tablet, Sublingual 0.4 mg SUBLINGUAL Q5-15M PRN (Reason: Chest Pain) vitamin E 400 unit Capsule 400 unit PO DAILY multivitamin Tablet,Chewable 1 tab PO DAILY atorvastatin [Lipitor] 20 mg tablet 40 mg PO QPM Patient Comments: patient states she forgets to take diltiazem HCl [Cartia XT] 120 mg capsule,extended release 24hr 120 mg PO QAM Patient Comments: TAKE 1 CAPSULE BY MOUTH ONCE DAILY furosemide 40 mg tablet 40 mg PO QAM Patient Comments: pt instructed to stop medications. d/c 05/10/22 levothyroxine 88 mcg tablet 88 mcg PO QAM Patient Comments: TAKE 1 TABLET BY MOUTH ONCE DAILY isosorbide mononitrate 120 mg tablet extended release 24 hr 120 mg PO QAM Patient Comments: TAKE 1 TABLET BY MOUTH ONCE DAILY IN THE MORNING lisinopril 40 mg tablet 20 mg PO QAM Patient Comments: TAKE 1 TABLET BY MOUTH ONCE DAILY clopidogrel 75 mg tablet 75 mg PO QAM ipratropium-albuterol 0.5 mg-3 mg(2.5 mg base)/3 mL solution for nebulization INHALATION PRN (Reason: Shortness Of Breath Or Wheezing) metoprolol succinate 25 mg tablet extended release 24 hr 25 mg PO DAILY Patient Comments: pt has not started, 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 take 10ml by mouth every 4 hrs as needed for cough Referrals: Catie Storm ARNP [Primary Care Provider] - Stand Alone Forms: Patient Portal/API
[2022-12-06 19:18] VITALS: BP 132/64; PULSE 77; RESP 18; O2SAT 94
[2022-12-06 19:38] LABS: NT-proBNP (BNP-Adult 18+) 2300 pg/mL (<450)
[2022-12-06 21:02] LABS: Troponin I 0.021 ng/mL (0.01-0.034)
[2022-12-06 21:24] LABS: COVID19 -Nasal RAPID Negative (Negative)
[2022-12-06 21:40] VITALS: BP 163/74; PULSE 75; RESP 18; O2SAT 97
== END 2022-12-06 21:39 | disposition home or self-care (01) ==
PROVIDERS: Emergency Provider Emergency Medicine; PCP Nurse Practitioner Family
DX: J44.1 Chronic obstructive pulmonary disease with (acute) exacerbation (principal); R07.9 Chest pain, unspecified; Z87.891 Personal history of nicotine dependence; Z20.822 Contact with and (suspected) exposure to COVID-19
CPT/HCPCS: 36415; 71045; 80053; 82550; 83690; 83735; 83880; 84484; 85025; 85610; 85730; 87635; 93005; 93010; 99284; C9803

== ENCOUNTER 2022-12-13 16:29 | Emergency (ER) | payer OTHER, SELFPAY ==
[2021-12-22 01:28] VITALS: BMI 25.3
[2022-12-13 16:59] VITALS: BP 140/72; PULSE 82; RESP 24; O2SAT 94; BMI 25.4
--- NOTE | 2022-12-13 17:08 | DI.RAD.S_ITS ---
PROCEDURE: XR CHEST 1V INDICATIONS: chest pain TECHNIQUE: One view of the chest was acquired. COMPARISON: [facility], [place], XR CHEST 1V, 12/06/2022, 18:32. FINDINGS: Surgical changes and devices: Median sternotomy wires are present and appear intact. Lungs and pleura: Patchy consolidation of the right mid lung zone which has progressed compared to the prior study. Patchy left basilar opacities also more prominent. No consolidations in the left hemithorax. No pneumothorax. No substantial pleural effusion. Background chronic interstitial changes as before. Mediastinum: Mediastinal contours appear normal. Heart size is enlarged. Atherosclerotic calcifications of the aortic arch are present. Bones and chest wall: No suspicious bony lesions. Overlying soft tissues appear unremarkable. IMPRESSION: Interval development of right mid lung zone focal airspace disease/pneumonia. Stable cardiomegaly. Recommend follow up chest radiograph 4-6 weeks after treatment to document resolution of findings and/or return to baseline examination. Dictated by: Garrett Dan M.D. on 12/13/2022 at 17:45 Approved by: Garrett Dan M.D. on 12/13/2022 at 17:46
[2022-12-13 18:09] LABS: Add Manual Diff / Slide Review NO; Basophils Absolute Auto 100 /uL (0-100); Basophils Percent Auto 0.3 % (0-2); Eosinophils Absolute Auto 0 /uL (0-450); Eosinophils Percent Auto 0.2 % (2-4); Hematocrit 38.4 % (36-46); Hemoglobin 12.8 g/dL (12.0-16.0); Lymphocytes Absolute Auto 900 /uL (1100-4500); Lymphocytes Percent Auto 4.9 % (25-40); Mean Corpuscular HGB Conc 33.4 % (30-36); Mean Corpuscular Hemoglobin 28.5 PG (26-34); Mean Corpuscular Volume 85.5 fL (80-100); Monocytes Absolute Auto 1200 /uL (0-900); Monocytes Percent Auto 6.6 % (3-14); Neutrophils Absolute Auto 16500 /uL (1500-7000); Platelet Count 247 X10^3/uL (150-400); Red Blood Cell Count 4.49 X10^6/uL (4.0-5.2); Red Cell Distribution Width 15.6 % (11.6-14.8); White Blood Cell Count 18.8 X10^3/uL (4.5-11.0)
[2022-12-13 18:16] LABS: INR 1.3 (0.9-1.3); Prothrombin Time 15.3 SECONDS (10.1-12.7)
[2022-12-13 18:19] LABS: PTT Partial Thromboplastin Tim 31 SECONDS (26-36)
[2022-12-13 18:20] VITALS: PULSE 77
[2022-12-13 18:21] LABS: Alanine Aminotransferase 18 IU/L (<35); Albumin 3.8 g/dL (3.5-5.0); Albumin Globulin Ratio 1.2 (1.0-2.8); Alkaline Phosphatase 82 U/L (38-126); Aspartate Aminotransferase 22 IU/L (14-36); Bilirubin Total 2.6 mg/dL (0.2-1.3); Blood Urea Nitrogen 18 mg/dL (7-17); Calcium 9.5 mg/dL (8.4-10.2); Carbon Dioxide 32 mmol/L (22-32); Chloride 93 mmol/L (98-107); Creatine Kinase 24 U/L (30-135); Estimated Glomerular Filt Rate 51 mL/min (>60); Globulin 3.1 g/dL (1.7-4.1); Glucose 105 mg/dL (80-110); HEMOLYSIS < 15 (0-50); Lipase 31 U/L (23-300); Magnesium 1.9 mg/dL (1.6-2.3); Sodium 130 mmol/L (137-145); Total Protein 6.9 g/dL (6.3-8.2)
[2022-12-13 18:22] VITALS: BP 129/60; PULSE 76; RESP 31; O2SAT 95
[2022-12-13 18:29] VITALS: TEMP 36.8
[2022-12-13 18:29] LABS: COVID19 -Nasal RAPID Negative (Negative)
[2022-12-13 18:30] VITALS: BP 129/62; PULSE 76; RESP 30; O2SAT 95
--- NOTE | 2022-12-13 18:44 | ED.GENADULT ---
HPI - General Adult General Chief complaint: Weakness Stated complaint: Gen weak/ cough/could Time Seen by Provider: 12/13/22 18:03 Source: patient and EMS Mode of arrival: EMS Limitations: no limitations History of Present Illness HPI narrative: Patient is an 87-year-old female. Does have history of COPD. Is on home oxygen. Was seen here in the emergency department a couple days ago for what was described as a COPD exacerbation according to the note. Was sent home with steroids but no antibiotics. Patient states she is on steroids but is unsure whether not she got them from here in the emergency department or from her primary doctor. She stated that over the past 12-24 hours she is felt more poorly. Has had a cough. Has not had to increase her oxygen at home. She is not having any chest pain but does have some shortness of breath. No abdominal pain. No swelling in her legs. She states she is taking all of her medications as directed. She lives at home with her son. Related Data Home Medications Medication Instructions Recorded Confirmed aspirin 81 mg tablet,delayed 81 mg PO QDAY ##0 07/11/17 05/20/22 release multivitamin 1 tab PO DAILY 07/07/18 05/20/22 nitroglycerin 0.4 mg sublingual 0.4 mg sublingual Q5-15M PRN Chest 07/07/18 05/20/22 tablet (Nitrostat) Pain omega 9-nuy-wqa-fish oil 1,000 mg 1,000 mg PO DAILY 07/07/18 05/20/22 (120 mg-180 mg) capsule (Fish Oil) vitamin E 268 mg (400 unit) capsule 400 unit PO DAILY 07/07/18 05/20/22 atorvastatin 20 mg tablet (Lipitor) 40 mg PO QPM 05/04/22 05/20/22 diltiazem HCl 120 mg 120 mg PO QAM 05/04/22 05/20/22 capsule,extended release 24 hr (Cartia XT) furosemide 40 mg tablet 40 mg PO QAM 05/04/22 05/04/22 isosorbide mononitrate 120 mg 120 mg PO QAM 05/04/22 05/20/22 tablet,extended release 24 hr levothyroxine 88 mcg tablet 88 mcg PO QAM 05/04/22 05/20/22 lisinopril 40 mg tablet 20 mg PO QAM 05/04/22 05/20/22 Flonase PRN Dry Nasal Passages 05/20/22 Robitussin DM To Go 10 ml PO PRN Cough 05/20/22 albuterol 90 mcg/actuation aerosol 90 mcg inhalation PRN Shortness Of 05/20/22 inhaler Breath clopidogrel 75 mg tablet 75 mg PO QAM 05/20/22 05/20/22 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 10 mg tablet 10 mg PO TID PRN Muscle Spasm 05/20/22 05/20/22 ipratropium 0.5 mg-albuterol 3 mg ml inhalation PRN Shortness Of 05/20/22 (2.5 mg base)/3 mL nebulization Breath Or Wheezing soln metoprolol succinate 25 mg 25 mg PO DAILY 05/20/22 05/20/22 tablet,extended release 24 hr torsemide 20 mg tablet 20 mg PO DAILY 05/20/22 05/20/22 Previous Rx's Medication Instructions Recorded prednisone 10 mg tablets in a dose See Rx Instructions PO .COMPLEX 12/06/22 pack #21 ea azithromycin 250 mg tablet 250 mg PO DAILY 4 days #4 tabs 12/13/22 Allergies Allergy/AdvReac Type Severity Reaction Status Date / Time acarbose Allergy Intermediate Abdominal Verified 12/06/22 18:21 Pain amlodipine Allergy Intermediate Verified 12/06/22 18:21 chlorthalidone Allergy Intermediate Redness of Verified 12/06/22 18:21 Skin doxazosin [From Cardura] Allergy Intermediate Rash Verified 12/06/22 18:21 doxycycline Allergy Intermediate Rash Verified 12/06/22 18:21 gemfibrozil Allergy Intermediate Rash Verified 12/06/22 18:21 levofloxacin Allergy Intermediate Rash Verified 12/06/22 18:21 losartan Allergy Intermediate Rash Verified 12/06/22 18:21 montelukast [From Singulair] Allergy Intermediate Difficulty Verified 12/06/22 18:21 Breathing nifedipine Allergy Intermediate Chills Verified 12/06/22 18:21 Sulfa (Sulfonamide Allergy Intermediate rash Verified 12/06/22 18:21 Antibiotics) sulfamethoxazole Allergy Intermediate Rash Verified 12/06/22 18:21 [From Bactrim] trimethoprim [From Bactrim] Allergy Intermediate Rash Verified 12/06/22 18:21 budesonide [From Symbicort] Allergy Mild Anxiety Verified 12/06/22 18:21 carvedilol Allergy Mild Rash Verified 12/06/22 18:21 choline fenofibrate Allergy Mild Gastrointestinal Verified 12/06/22 18:21 [From Trilipix] Upset formoterol [From Symbicort] Allergy Mild Anxiety Verified 12/06/22 18:21 metoprolol AdvReac Intermediate Verified 12/06/22 18:21 Review of Systems Review of Systems ROS Unobtainable: All systems reviewed & are unremarkable except as noted in HPI and below Patient History Medical History Aneurysm of infrarenal abdominal aorta Bilateral carpal tunnel syndrome CAD (coronary artery disease) COPD (chronic obstructive pulmonary disease) with emphysema Elevated TSH HTN (hypertension) Hyperlipidemia Unstable angina Valvular heart disease Surgical History H/O hysterectomy with oophorectomy H/O three vessel coronary artery bypass Hx of heart artery stent Status post cholecystectomy Family History Father Lung cancer Mother COPD (chronic obstructive pulmonary disease) Social History household members: family and children Smoking Status: Former smoker alcohol intake: never Smoking Status: Former smoker tobacco type: cigarettes alcohol intake frequency: 0-2 drinks per day Substance Use Type: does not use Exam Initial Vital Signs Initial Vital Signs: Vital Signs Pulse Rate 82 12/13/22 16:59 Respiratory Rate 24 12/13/22 16:59 Blood Pressure 140/72 12/13/22 16:59 Pulse Oximetry 94 12/13/22 16:59 Oxygen Delivery Method Nasal Cannula 12/13/22 16:59 Oxygen Flow Rate 2 12/13/22 16:59 Const General: No ill appearing HENOH Head: normal to inspection and normocephalic Resp Effort & Inspection: respiratory effort not decreased and tachypneic Auscultation: clear to auscultation bilaterally Cardio Rate: regular rate GI Inspection: non-distended Skin General: no rashes or lesions noted Neuro General: patient alert, patient awake, patient oriented x3 and moves all extremities Extrem General: No edema Psych Appearance: grossly normal and well kempt Scores GCS Luh coma scale eye opening: Spontaneous Clare coma scale verbal response: Orientated Clare coma scale motor response: Obey commands Luh coma scale total score: 15 Course Orders Ordered: ED Orders 12/13/22 17:07 EKG-12 Lead Stat 12/13/22 17:08 XR chest 1V Stat 12/13/22 18:00 Complete Blood Count AUTO DIFF Stat Comprehensive Metabolic Panel Stat Lipase Stat Magnesium Stat PTT Partial Thromboplastin Vasquez Stat Prothrombin Time INR Stat Troponin & CK Cardiac Panel Stat 12/13/22 18:05 COVID19 -Nasal RAPID Stat Discontinued Medications Azithromycin (Azithromycin 250 Mg Tablet) 500 mg PO NOW ONE Stop: 12/13/22 18:46 Last Admin: 12/13/22 19:07 Dose: 500 mg Documented By: HANNA Vital Signs Vital signs: Vital Signs - 8 hr 12/13/22 16:59 12/13/22 18:20 12/13/22 18:22 Temperature Pulse Rate 82 77 Respiratory Rate 24 Blood Pressure 140/72 129/60 Pulse Oximetry 94 Oxygen Delivery Method Nasal Cannula Oxygen Flow Rate 2 12/13/22 18:22 12/13/22 18:29 12/13/22 18:30 Temperature 98.2 F Pulse Rate 76 Respiratory Rate 31 H Blood Pressure 129/62 Pulse Oximetry 95 Oxygen Delivery Method Nasal Cannula Oxygen Flow Rate 2 12/13/22 18:30 12/13/22 19:00 12/13/22 19:00 Temperature Pulse Rate 76 74 Respiratory Rate 30 H 30 H Blood Pressure 133/63 Pulse Oximetry 95 95 Oxygen Delivery Method Nasal Cannula Nasal Cannula Oxygen Flow Rate 2 2 Medical Decision Making Medical Records Medical records reviewed: Yes I reviewed the patient's medical records. Lab Data Lab results reviewed: Yes I reviewed the patient's lab results. 12/13/22 18:00 12/13/22 18:00 Labs: Lab Results 12/13/22 12/13/22 12/13/22 Range/Units 18:00 18:00 18:00 WBC 18.8 H (4.5-11.0) X10^3/uL RBC 4.49 (4.0-5.2) X10^6/uL Hgb 12.8 (12.0-16.0) g/dL Hct 38.4 (36-46) % MCV 85.5 (80-100) fL MCH 28.5 (26-34) PG MCHC 33.4 (30-36) % RDW 15.6 H (11.6-14.8) % Plt Count 247 (150-400) X10^3/uL Neut % (Auto) 88.0 H (50-75) % Lymph % (Auto) 4.9 L (25-40) % [place] % (Auto) 6.6 (3-14) % Eos % (Auto) 0.2 L (2-4) % Baso % (Auto) 0.3 (0-2) % Neut # (Auto) 43675 H (7520-2842) /uL Lymph # (Auto) 900 L (3938-7641) /uL [place] # (Auto) 1200 H (0-900) /uL Eos # (Auto) 0 (0-450) /uL Baso # (Auto) 100 (0-100) /uL PT 15.3 H (10.1-12.7) SECONDS INR 1.3 (0.9-1.3) APTT 31 (26-36) SECONDS Sodium 130 L (137-145) mmol/L Potassium 4.0 (3.4-5.1) mmol/L Chloride 93 L (98-107) mmol/L Carbon Dioxide 32 (22-32) mmol/L BUN 18 H (7-17) mg/dL Creatinine 1.06 H (0.52-1.04) mg/dL Estimated GFR 51 L (>60) mL/min BUN/Creatinine Ratio 17.0 (6-22) Glucose 105 (80-110) mg/dL Calcium 9.5 (8.4-10.2) mg/dL Magnesium 1.9 (1.6-2.3) mg/dL Total Bilirubin 2.6 H (0.2-1.3) mg/dL AST 22 (14-36) IU/L ALT 18 (<35) IU/L Alkaline Phosphatase 82 (38-126) U/L Total Creatine Kinase 24 L (30-135) U/L CK-MB (CK-2) TNP CK-MB (CK-2) Rel Index TNP Troponin I 0.030 (0.01-0.034) ng/mL Total Protein 6.9 (6.3-8.2) g/dL Albumin 3.8 (3.5-5.0) g/dL Globulin 3.1 (1.7-4.1) g/dL Albumin/Globulin Ratio 1.2 (1.0-2.8) Lipase 31 (23-300) U/L SARS-CoV-2 (PCR) (Negative) 12/13/22 Range/Units 18:05 WBC (4.5-11.0) X10^3/uL RBC (4.0-5.2) X10^6/uL Hgb (12.0-16.0) g/dL Hct (36-46) % MCV (80-100) fL MCH (26-34) PG MCHC (30-36) % RDW (11.6-14.8) % Plt Count (150-400) X10^3/uL Neut % (Auto) (50-75) % Lymph % (Auto) (25-40) % [place] % (Auto) (3-14) % Eos % (Auto) (2-4) % Baso % (Auto) (0-2) % Neut # (Auto) (6267-0345) /uL Lymph # (Auto) (4096-8211) /uL [place] # (Auto) (0-900) /uL Eos # (Auto) (0-450) /uL Baso # (Auto) (0-100) /uL PT (10.1-12.7) SECONDS INR (0.9-1.3) APTT (26-36) SECONDS Sodium (137-145) mmol/L Potassium (3.4-5.1) mmol/L Chloride (98-107) mmol/L Carbon Dioxide (22-32) mmol/L BUN (7-17) mg/dL Creatinine (0.52-1.04) mg/dL Estimated GFR (>60) mL/min BUN/Creatinine Ratio (6-22) Glucose (80-110) mg/dL Calcium (8.4-10.2) mg/dL Magnesium (1.6-2.3) mg/dL Total Bilirubin (0.2-1.3) mg/dL AST (14-36) IU/L ALT (<35) IU/L Alkaline Phosphatase (38-126) U/L Total Creatine Kinase (30-135) U/L CK-MB (CK-2) CK-MB (CK-2) Rel Index Troponin I (0.01-0.034) ng/mL Total Protein (6.3-8.2) g/dL Albumin (3.5-5.0) g/dL Globulin (1.7-4.1) g/dL Albumin/Globulin Ratio (1.0-2.8) Lipase (23-300) U/L SARS-CoV-2 (PCR) Negative (Negative) Imaging Data Chest x-ray: Radiologist's Impression: PROCEDURE:? XR CHEST 1V ? INDICATIONS:? chest pain ? TECHNIQUE:? One view of the chest was acquired.? ? COMPARISON:? [facility], CR, XR CHEST 1V, 12/06/2022, 18:32. ? FINDINGS:? ? Surgical changes and devices:? Median sternotomy wires are present and appear intact. ? Lungs and pleura:? Patchy consolidation of the right mid lung zone which has progressed compared to the prior study.? Patchy left basilar opacities also more prominent.? No consolidations in the left hemithorax.? No pneumothorax.? No substantial pleural effusion.? Background chronic interstitial changes as before. ? Mediastinum:? Mediastinal contours appear normal.? Heart size is enlarged.? Atherosclerotic calcifications of the aortic arch are present. ? Bones and chest wall:? No suspicious bony lesions.? Overlying soft tissues appear unremarkable.? ? IMPRESSION:? Interval development of right mid lung zone focal airspace disease/pneumonia. ? Stable cardiomegaly. ? Recommend follow up chest radiograph 4-6 weeks after treatment to document resolution of findings and/or return to baseline examination. ECG Data Attestation: I personally reviewed and interpreted this ECG as follows: Interpretation: Sinus rhythm Right bundle-branch block LVH Normal axis Nonspecific ST T wave changes MDM Narrative Medical decision making narrative: Patient does have leukocytosis however she is on steroids and her chest x-ray today does appear to have a new pneumonia from comparison of a chest x-ray a couple days ago. She is on 2 L of oxygen satting in the mid upper 90s. This is baseline for her. She is not in any respiratory distress. Not tachycardic. She did tolerate an oral dose of azithromycin. She is allergic to fluoroquinolones. It appears that the pneumonia on the x-ray today is new. Is most likely what is causing her presenting symptoms today. She does require an antibiotics. Given the fact that she has oxygen at home. Is at her baseline respiratory status. Is able to tolerate oral intake. In the fact she is nontoxic appearing we will discharge home with oral antibiotics. 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 They were sent to the pharmacy of her choice. She was given strict return precautions and told to return if any of her symptoms worsen or if she required more oxygen. She expressed understanding and agreement with plan. Discharge Plan Departure Patient Disposition: Home Clinical Impression: Pneumonia Instructions: DI for Pneumonia -- Adult Activity Restrictions/Additional Instructions: We gave you your 1st dose of antibiotics here in the emergency department. Your next dose will be tomorrow Thursday 12/14. The prescription was sent to [facility] per your request. Continue to use your oxygen as needed. Continue the rest of your medications as directed. Return to the emergency department for new or worsening symptoms. Prescriptions: New azithromycin 250 mg tablet 250 mg PO DAILY 4 Days Qty: 4 0RF Rx Instructions: start on day 2 of therapy No Action aspirin 81 MG tablet,delayed release (DR/EC) 81 mg PO QDAY Qty: 0 Rx Instructions: morning omega 0-nqo-yra-fish oil [Fish Oil] 1,000 mg (120 mg-180 mg) Capsule 1,000 mg PO DAILY nitroglycerin [Nitrostat] 0.4 mg Tablet, Sublingual 0.4 mg SUBLINGUAL Q5-15M PRN (Reason: Chest Pain) vitamin E 400 unit Capsule 400 unit PO DAILY multivitamin Tablet,Chewable 1 tab PO DAILY prednisone 10 mg tablets,dose pack See Rx Instructions .ROUTE .COMPLEX Qty: 21 0RF Rx Instructions: Take 6 tablets p.o. x1 day, then 5 tablets p.o. x1 day, then 4 tablets p.o. x1 day, then 3 tablets p.o. x1 day, then 2 tablets p.o. x1 day, then 1 tablet p.o. x1 day atorvastatin [Lipitor] 20 mg tablet 40 mg PO QPM Patient Comments: patient states she forgets to take diltiazem HCl [Cartia XT] 120 mg capsule,extended release 24hr 120 mg PO QAM Patient Comments: TAKE 1 CAPSULE BY MOUTH ONCE DAILY furosemide 40 mg tablet 40 mg PO QAM Patient Comments: pt instructed to stop medications. d/c 05/10/22 levothyroxine 88 mcg tablet 88 mcg PO QAM Patient Comments: TAKE 1 TABLET BY MOUTH ONCE DAILY isosorbide mononitrate 120 mg tablet extended release 24 hr 120 mg PO QAM Patient Comments: TAKE 1 TABLET BY MOUTH ONCE DAILY IN THE MORNING lisinopril 40 mg tablet 20 mg PO QAM Patient Comments: TAKE 1 TABLET BY MOUTH ONCE DAILY clopidogrel 75 mg tablet 75 mg PO QAM ipratropium-albuterol 0.5 mg-3 mg(2.5 mg base)/3 mL solution for nebulization INHALATION PRN (Reason: Shortness Of Breath Or Wheezing) metoprolol succinate 25 mg tablet extended release 24 hr 25 mg PO DAILY Patient Comments: pt has not started, it 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 take 10ml by mouth every 4 hrs as needed for cough Referrals: Catie Storm ARNP [Primary Care Provider] - Stand Alone Forms: Patient Portal/API
[2022-12-13 19:00] VITALS: BP 133/63; PULSE 74; RESP 30; O2SAT 95
[2022-12-13] MEDS: AZITHROMYCIN 250 MG TABLET 500 MG PO (19:07)
== END 2022-12-13 20:18 | disposition home or self-care (01) ==
PROVIDERS: Emergency Medicine; Emergency Provider Emergency Medicine; PCP Nurse Practitioner Family
DX: J18.9 Pneumonia, unspecified organism (principal); R07.9 Chest pain, unspecified; Z20.822 Contact with and (suspected) exposure to COVID-19
CPT/HCPCS: 36415; 71045; 80053; 82550; 83690; 83735; 84484; 85025; 85610; 85730; 87635; 93005; 93010; 99285; C9803

== ENCOUNTER 2023-02-21 11:05 | Emergency (ER) | payer OTHER, SELFPAY ==
[2021-12-22 01:28] VITALS: BMI 25.3
[2023-02-21 11:33] VITALS: BP 154/99; PULSE 90; RESP 17; TEMP 36.6; O2SAT 96; BMI 23.8
--- NOTE | 2023-02-21 11:36 | ED.EPISTAXIS ---
HPI - Epistaxis General Chief complaint: Nasal Problem Stated complaint: takes thinners/nose bleeding 8am Time Seen by Provider: 02/21/23 11:27 History of Present Illness HPI Narrative: Patient is a shu 87-year-old female history of coronary artery disease with three-vessel CABG on Plavix chronically on O2 since she had COVID in 2019 presents today with epistaxis. She initially was seen at a walk-in clinic she would an anterior rhino rocket placed but still oozing. Not able to stop completely. She has not been on her oxygen and her oxygen has been 94-96%. She has some bleeding out of her left Hughes she feels like it is coming around through to the right. Related Data Home Medications Medication Instructions Recorded Confirmed aspirin 81 mg tablet,delayed 81 mg PO QDAY ##0 07/11/17 05/20/22 release multivitamin 1 tab PO DAILY 07/07/18 05/20/22 nitroglycerin 0.4 mg sublingual 0.4 mg sublingual Q5-15M PRN Chest 07/07/18 05/20/22 tablet (Nitrostat) Pain omega 1-uxo-tle-fish oil 1,000 mg 1,000 mg PO DAILY 07/07/18 05/20/22 (120 mg-180 mg) capsule (Fish Oil) vitamin E 268 mg (400 unit) capsule 400 unit PO DAILY 07/07/18 05/20/22 atorvastatin 20 mg tablet (Lipitor) 40 mg PO QPM 05/04/22 05/20/22 diltiazem HCl 120 mg 120 mg PO QAM 05/04/22 05/20/22 capsule,extended release 24 hr (Cartia XT) furosemide 40 mg tablet 40 mg PO QAM 05/04/22 05/04/22 isosorbide mononitrate 120 mg 120 mg PO QAM 05/04/22 05/20/22 tablet,extended release 24 hr levothyroxine 88 mcg tablet 88 mcg PO QAM 05/04/22 05/20/22 lisinopril 40 mg tablet 20 mg PO QAM 05/04/22 05/20/22 Flonase PRN Dry Nasal Passages 05/20/22 Robitussin DM To Go 10 ml PO PRN Cough 05/20/22 albuterol 90 mcg/actuation aerosol 90 mcg inhalation PRN Shortness Of 05/20/22 inhaler Breath clopidogrel 75 mg tablet 75 mg PO QAM 05/20/22 05/20/22 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 10 mg tablet 10 mg PO TID PRN Muscle Spasm 05/20/22 05/20/22 ipratropium 0.5 mg-albuterol 3 mg ml inhalation PRN Shortness Of 05/20/22 (2.5 mg base)/3 mL nebulization Breath Or Wheezing soln metoprolol succinate 25 mg 25 mg PO DAILY 05/20/22 05/20/22 tablet,extended release 24 hr torsemide 20 mg tablet 20 mg PO DAILY 05/20/22 05/20/22 Previous Rx's Medication Instructions Recorded prednisone 10 mg tablets in a dose See Rx Instructions PO .COMPLEX 12/06/22 pack #21 ea Allergies Allergy/AdvReac Type Severity Reaction Status Date / Time acarbose Allergy Intermediate Abdominal Verified 02/21/23 11:46 Pain amlodipine Allergy Intermediate Verified 02/21/23 11:46 chlorthalidone Allergy Intermediate Redness of Verified 02/21/23 11:46 Skin doxazosin [From Cardura] Allergy Intermediate Rash Verified 02/21/23 11:46 doxycycline Allergy Intermediate Rash Verified 02/21/23 11:46 gemfibrozil Allergy Intermediate Rash Verified 02/21/23 11:46 levofloxacin Allergy Intermediate Rash Verified 02/21/23 11:46 losartan Allergy Intermediate Rash Verified 02/21/23 11:46 montelukast [From Singulair] Allergy Intermediate Difficulty Verified 02/21/23 11:46 Breathing nifedipine Allergy Intermediate Chills Verified 02/21/23 11:46 Sulfa (Sulfonamide Allergy Intermediate rash Verified 02/21/23 11:46 Antibiotics) sulfamethoxazole Allergy Intermediate Rash Verified 02/21/23 11:46 [From Bactrim] trimethoprim [From Bactrim] Allergy Intermediate Rash Verified 02/21/23 11:46 budesonide [From Symbicort] Allergy Mild Anxiety Verified 02/21/23 11:46 carvedilol Allergy Mild Rash Verified 02/21/23 11:46 choline fenofibrate Allergy Mild Gastrointestinal Verified 02/21/23 11:46 [From Trilipix] Upset formoterol [From Symbicort] Allergy Mild Anxiety Verified 02/21/23 11:46 metoprolol AdvReac Intermediate Verified 02/21/23 11:46 Review of Systems Review of Systems ROS Unobtainable: All systems reviewed & are unremarkable except as noted in HPI and below Patient History Medical History (Updated 02/21/23 @ 13:07 by Rima Morris DO) Aneurysm of infrarenal abdominal aorta Bilateral carpal tunnel syndrome CAD (coronary artery disease) COPD (chronic obstructive pulmonary disease) with emphysema Elevated TSH HTN (hypertension) Hyperlipidemia Unstable angina Valvular heart disease Surgical History H/O hysterectomy with oophorectomy H/O three vessel coronary artery bypass Hx of heart artery stent Status post cholecystectomy Family History Father Lung cancer Mother COPD (chronic obstructive pulmonary disease) Social History household members: family and children Smoking Status: Former smoker alcohol intake: never Smoking Status: Former smoker tobacco type: cigarettes alcohol intake frequency: 0-2 drinks per day Substance Use Type: does not use Exam Initial Vital Signs Initial Vital Signs: Vital Signs Temperature 98 F 02/21/23 11:33 Pulse Rate 90 02/21/23 11:33 Respiratory Rate 17 02/21/23 11:33 Blood Pressure 154/99 H 02/21/23 11:33 Pulse Oximetry 96 02/21/23 11:33 Oxygen Delivery Method Room Air 02/21/23 11:33 GENERAL: Alert pleasant 87-year-old female NOSE: No active bleeding seen from the left side but she does have a hole in her septum which she says she knows about. It is still bleeding dripping down her throat. Right side does not show any active bleeding CARDIOVASCULAR: peripheral pulses in tact, cap refill <2 sec RESPIRATORY: No respiratory distress, speaks in full sentences without difficulty EXTREMITIES: Normal range of motion, no clubbing or edema. Neurovascularly intact NEUROLOGICAL: Cranial nerves II through XII grossly intact. Normal gait and speech. SKIN: Warm, dry, no petechiae, no rashes or lesions. Procedures Epistaxis Control Nostril: left Direct Inspection: unable to visualize Clots Removed by: blowing nose Device Inserted: hemostatic balloon Course Orders Ordered: Discontinued Medications Silver Nitrate/Potassium Nitrate (Silver Nitrate Stick) 1 each TOP NOW ONE Stop: 02/21/23 11:41 Last Admin: 02/21/23 12:15 Dose: Not Given Documented By: CLAYTON Vital Signs Vital signs: Vital Signs - 8 hr 02/21/23 11:33 Temperature 98 F Pulse Rate 90 Respiratory Rate 17 Blood Pressure 154/99 H Pulse Oximetry 96 Oxygen Delivery Method Room Air MDM - Epistaxis MDM Narrative Medical decision making narrative: Patient 87-year-old female on chronic oxygen and Plavix presenting today with epistaxis. Anterior rhino rocket was removed posterior/anterior rhino rocket placed. Bleeding seems to be significantly controlled she is quite sensitive. At this time we discussed options we are going to leave it in for 24 hour she is given instructions on how to remove the rhino rocket tomorrow. At this time vitals are stable no sign of ongoing posterior bleeding, she is tolerating the rhino rocket. Discharge Plan Departure Patient Disposition: Home Clinical Impression: Epistaxis Instructions: DI for Nosebleed Activity Restrictions/Additional Instructions: *You have been diagnosed with epistaxis *What to do: At this time keep a balloon in nose until tomorrow morning. Twist and turn syringe at the end of the balloon Pull the air out of the balloon. Pull balloon out of nose. *Continue to take medications as directed Continue Plavix *Follow up with your primary care provider in 2-3 days or call [phone] *Return to ER if you should have persistent bleeding, pain, dizziness lightheadedness or any new, worsening or concerning symptoms Prescriptions: No Action aspirin 81 MG tablet,delayed release (DR/EC) 81 mg PO QDAY Qty: 0 Rx Instructions: morning omega 1-tsq-dey-fish oil [Fish Oil] 1,000 mg (120 mg-180 mg) Capsule 1,000 mg PO DAILY nitroglycerin [Nitrostat] 0.4 mg Tablet, Sublingual 0.4 mg SUBLINGUAL Q5-15M PRN (Reason: Chest Pain) vitamin E 400 unit Capsule 400 unit PO DAILY multivitamin Tablet,Chewable 1 tab PO DAILY prednisone 10 mg tablets,dose pack See Rx Instructions .ROUTE .COMPLEX Qty: 21 0RF Rx Instructions: Take 6 tablets p.o. x1 day, then 5 tablets p.o. x1 day, then 4 tablets p.o. x1 day, then 3 tablets p.o. x1 day, then 2 tablets p.o. x1 day, then 1 tablet p.o. x1 day atorvastatin [Lipitor] 20 mg tablet 40 mg PO QPM Patient Comments: patient states she forgets to take diltiazem HCl [Cartia XT] 120 mg capsule,extended release 24hr 120 mg PO QAM Patient Comments: TAKE 1 CAPSULE BY MOUTH ONCE DAILY furosemide 40 mg tablet 40 mg PO QAM Patient Comments: pt instructed to stop medications. d/c 05/10/22 levothyroxine 88 mcg tablet 88 mcg PO QAM Patient Comments: TAKE 1 TABLET BY MOUTH ONCE DAILY isosorbide mononitrate 120 mg tablet extended release 24 hr 120 mg PO QAM Patient Comments: TAKE 1 TABLET BY MOUTH ONCE DAILY IN THE MORNING lisinopril 40 mg tablet 20 mg PO QAM Patient Comments: TAKE 1 TABLET BY MOUTH ONCE DAILY clopidogrel 75 mg tablet 75 mg PO QAM ipratropium-albuterol 0.5 mg-3 mg(2.5 mg base)/3 mL solution for nebulization INHALATION PRN (Reason: Shortness Of Breath Or Wheezing) metoprolol succinate 25 mg tablet extended release 24 hr 25 mg PO DAILY Patient Comments: pt has not started, it is at the pharmacy for her to package pick up 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 10 mg Tablet 10 mg PO TID PRN (Reason: Muscle Spasm) albuterol 90 mcg/actuation Aerosol 90 mcg INHALATION PRN (Reason: Shortness Of Breath) Flonase 50 mcg PRN (Reason: Dry Nasal Passages) torsemide 20 mg Tablet 20 mg PO DAILY Robitussin DM To Go 10 ml PO PRN (Reason: Cough) Rx Instructions: 10-100mg/5ml liquid. take 10ml by mouth every 4 hrs as needed for cough Referrals: Catie Storm ARNP [Primary Care Provider] - Stand Alone Forms: Patient Portal/API
== END 2023-02-21 13:29 | disposition home or self-care (01) ==
PROVIDERS: Emergency Provider Emergency Medicine; PCP Nurse Practitioner Family
DX: R04.0 Epistaxis (principal)
CPT/HCPCS: 30901; 30905; 99282

== ENCOUNTER 2023-03-28 11:23 | Emergency (ER) | payer OTHER, SELFPAY ==
[2021-12-22 01:28] VITALS: BMI 25.3
[2023-03-28] VITALS (21 sets, daily range): BP systolic 128–185; BP diastolic 62–106; PULSE 51–75; RESP 18–35; TEMP 36.9; O2SAT 95–100; BMI 25.4
--- NOTE | 2023-03-28 11:32 | DI.RAD.S_ITS ---
PROCEDURE: XR CHEST 1V INDICATIONS: chest pain TECHNIQUE: One view of the chest was acquired. COMPARISON: [facility], CR, XR CHEST 1V, 12/06/2022, 18:32. [facility], CR, XR CHEST 1V, 12/13/2022, 17:10. FINDINGS: Surgical changes and devices: Sternotomy. Lungs and pleura: Bilateral interstitial infiltrates suspicious for pulmonary edema. No pleural effusions or pneumothorax. Mediastinum: Mediastinal contours appear normal. Heart size is moderately enlarged. Bones and chest wall: No suspicious bony lesions. Overlying soft tissues appear unremarkable. IMPRESSION: 1. Cardiomegaly and bilateral interstitial infiltrates suspicious for pulmonary edema. Cannot rule out superimposed pneumonia. Dictated by: Magaly Ramirez M.D. on 03/28/2023 at 11:55 Approved by: Magaly Ramirez M.D. on 03/28/2023 at 11:57
[2023-03-28 11:53] LABS: Add Manual Diff / Slide Review NO; Basophils Absolute Auto 100 /uL (0-100); Basophils Percent Auto 1.5 % (0-2); Eosinophils Absolute Auto 400 /uL (0-450); Eosinophils Percent Auto 4.8 % (2-4); Hematocrit 37.4 % (36-46); Hemoglobin 12.4 g/dL (12.0-16.0); Lymphocytes Absolute Auto 1100 /uL (1100-4500); Lymphocytes Percent Auto 14.4 % (25-40); Mean Corpuscular HGB Conc 33.2 % (30-36); Mean Corpuscular Hemoglobin 28.8 PG (26-34); Mean Corpuscular Volume 86.8 fL (80-100); Monocytes Absolute Auto 600 /uL (0-900); Monocytes Percent Auto 8.1 % (3-14); Neutrophils Absolute Auto 5300 /uL (1500-7000); Neutrophils Percent Auto 71.2 % (50-75); Platelet Count 203 X10^3/uL (150-400); Red Blood Cell Count 4.31 X10^6/uL (4.0-5.2); Red Cell Distribution Width 15.1 % (11.6-14.8); White Blood Cell Count 7.4 X10^3/uL (4.5-11.0)
[2023-03-28 12:02] LABS: INR 1.1 (0.9-1.3); Prothrombin Time 12.7 SECONDS (10.1-12.7)
[2023-03-28 12:04] LABS: PTT Partial Thromboplastin Tim 34 SECONDS (26-36)
--- NOTE | 2023-03-28 12:13 | ED.CHESTPAIN ---
HPI - Chest Pain General Chief Complaint: Chest Pain Stated Complaint: Chest Pain x3 Days Time Seen by Provider: 03/28/23 11:33 Source: patient Mode of arrival: EMS Limitations: no limitations History of Present Illness HPI narrative: 87-year-old female. Has a history of COPD. Is on oxygen 17/03. She states for the past 3 days she states she is had chest pressure. She also has had a cough. She also states she has had a decrease in her peak flow. The chest pressure has been constant for the past couple days. No fevers. She has been doing all of her medications as directed. They chest pressure not made worse by taking a deep breath or palpation or movement. Related Data Home Medications Medication Instructions Recorded Confirmed aspirin 81 mg tablet,delayed 81 mg PO QDAY ##0 07/11/17 05/20/22 release multivitamin 1 tab PO DAILY 07/07/18 05/20/22 nitroglycerin 0.4 mg sublingual 0.4 mg sublingual Q5-15M PRN Chest 07/07/18 05/20/22 tablet (Nitrostat) Pain omega 5-itm-jkm-fish oil 1,000 mg 1,000 mg PO DAILY 07/07/18 05/20/22 (120 mg-180 mg) capsule (Fish Oil) vitamin E 268 mg (400 unit) capsule 400 unit PO DAILY 07/07/18 05/20/22 atorvastatin 20 mg tablet (Lipitor) 40 mg PO QPM 05/04/22 05/20/22 diltiazem HCl 120 mg 120 mg PO QAM 05/04/22 05/20/22 capsule,extended release 24 hr (Cartia XT) furosemide 40 mg tablet 40 mg PO QAM 05/04/22 05/04/22 isosorbide mononitrate 120 mg 120 mg PO QAM 05/04/22 05/20/22 tablet,extended release 24 hr levothyroxine 88 mcg tablet 88 mcg PO QAM 05/04/22 05/20/22 lisinopril 40 mg tablet 20 mg PO QAM 05/04/22 05/20/22 Flonase PRN Dry Nasal Passages 05/20/22 Robitussin DM To Go 10 ml PO PRN Cough 05/20/22 albuterol 90 mcg/actuation aerosol 90 mcg inhalation PRN Shortness Of 05/20/22 inhaler Breath clopidogrel 75 mg tablet 75 mg PO QAM 05/20/22 05/20/22 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 10 mg tablet 10 mg PO TID PRN Muscle Spasm 05/20/22 05/20/22 ipratropium 0.5 mg-albuterol 3 mg ml inhalation PRN Shortness Of 05/20/22 (2.5 mg base)/3 mL nebulization Breath Or Wheezing soln metoprolol succinate 25 mg 25 mg PO DAILY 05/20/22 05/20/22 tablet,extended release 24 hr torsemide 20 mg tablet 20 mg PO DAILY 05/20/22 05/20/22 Previous Rx's Medication Instructions Recorded prednisone 10 mg tablets in a dose See Rx Instructions PO .COMPLEX 12/06/22 pack #21 ea azithromycin 250 mg tablet 250 mg PO DAILY 4 days #4 tabs 03/28/23 prednisone 20 mg tablet 20 mg PO DAILY #14 tabs 03/28/23 Allergies Allergy/AdvReac Type Severity Reaction Status Date / Time amlodipine Allergy Intermediate Verified 02/21/23 11:46 doxazosin [From Cardura] Allergy Intermediate Rash Verified 02/21/23 11:46 doxycycline Allergy Intermediate Rash Verified 02/21/23 11:46 gemfibrozil Allergy Intermediate Rash Verified 02/21/23 11:46 levofloxacin Allergy Intermediate Rash Verified 02/21/23 11:46 losartan Allergy Intermediate Rash Verified 02/21/23 11:46 montelukast [From Singulair] Allergy Intermediate Difficulty Verified 02/21/23 11:46 Breathing Sulfa (Sulfonamide Allergy Intermediate rash Verified 02/21/23 11:46 Antibiotics) sulfamethoxazole Allergy Intermediate Rash Verified 02/21/23 11:46 [From Bactrim] trimethoprim [From Bactrim] Allergy Intermediate Rash Verified 02/21/23 11:46 carvedilol Allergy Mild Rash Verified 02/21/23 11:46 acarbose AdvReac Intermediate Abdominal Verified 03/28/23 12:17 Pain chlorthalidone AdvReac Intermediate Redness of Verified 03/28/23 12:17 Skin metoprolol AdvReac Intermediate Verified 02/21/23 11:46 nifedipine AdvReac Intermediate Chills Verified 03/28/23 12:17 budesonide [From Symbicort] AdvReac Mild Anxiety Verified 03/28/23 12:17 choline fenofibrate AdvReac Mild Gastrointestinal Verified 03/28/23 12:17 [From Trilipix] Upset formoterol [From Symbicort] AdvReac Mild Anxiety Verified 03/28/23 12:17 Review of Systems Constitutional Constitutional: Reports system reviewed and no additional complaints, except as documented Cardiovascular Cardiovascular: Reports system reviewed and no additional complaints, except as documented Respiratory Respiratory: Reports system reviewed and no additional complaints, except as documented Gastrointestinal Gastrointestinal: Reports system reviewed and no additional complaints, except as documented Integumentary/Breasts Skin/Breast: Reports system reviewed and no additional complaints, except as documented Neurologic Neurologic: Reports system reviewed and no additional complaints, except as documented Hematologic/Lymphatic On Anticoagulants: No Patient History Medical History (Updated 03/28/23 @ 17:11 by Jean Ta DO) Aneurysm of infrarenal abdominal aorta Bilateral carpal tunnel syndrome CAD (coronary artery disease) COPD (chronic obstructive pulmonary disease) with emphysema Elevated TSH HTN (hypertension) Hyperlipidemia Unstable angina Valvular heart disease Surgical History H/O hysterectomy with oophorectomy H/O three vessel coronary artery bypass Hx of heart artery stent Status post cholecystectomy Family History Father Lung cancer Mother COPD (chronic obstructive pulmonary disease) Social History household members: family and children Smoking Status: Former smoker alcohol intake: never Smoking Status: Former smoker tobacco type: cigarettes alcohol intake frequency: 0-2 drinks per day Substance Use Type: does not use Exam Initial Vital Signs Initial Vital Signs: Vital Signs Temperature 98.4 F 03/28/23 11:29 Pulse Rate 60 03/28/23 11:29 Respiratory Rate 20 03/28/23 11:29 Blood Pressure 185/80 H 03/28/23 11:29 Pulse Oximetry 97 03/28/23 11:29 Oxygen Delivery Method Nasal Cannula 03/28/23 11:29 Oxygen Flow Rate 2 03/28/23 11:29 HENMT Head: normal to inspection and normocephalic Resp Effort & Inspection: normal respiratory effort Auscultation: clear to auscultation bilaterally Cardio Rate: regular rate Rhythm: regular rhythm GI Inspection: normal to inspection Palpation: soft, No firm and No tender Skin General: no rashes or lesions noted Neuro General: patient alert, patient awake and moves all extremities Extrem General: normal to inspection and capillary refill normal Course Orders Ordered: ED Orders 03/28/23 11:32 XR chest 1V Stat EKG-12 Lead Stat 03/28/23 11:43 Complete Blood Count AUTO DIFF Stat PTT Partial Thromboplastin Vasquez Stat Prothrombin Time INR Stat 03/28/23 12:13 Procalcitonin Stat 03/28/23 12:19 Comprehensive Metabolic Panel Stat Lipase Stat Magnesium Stat Troponin & CK Cardiac Panel Stat 03/28/23 15:39 Troponin & CK Cardiac Panel Stat Discontinued Medications Albuterol/Ipratropium (Albuterol/Ipratropium 3 Ml Ampul) 3 ml INH NOW ONE Stop: 03/28/23 12:14 Last Admin: 03/28/23 12:21 Dose: 3 ml Documented By: LINETTE Azithromycin (Azithromycin 250 Mg Tablet) 500 mg PO NOW ONE Stop: 03/28/23 16:31 Last Admin: 03/28/23 16:44 Dose: 500 mg Documented By: ANH Methylprednisolone (Methylprednisolone 125 Mg/2 Ml Vial) 125 mg IV NOW ONE Stop: 03/28/23 12:14 Last Admin: 03/28/23 12:25 Dose: 125 mg Documented By: ANH Ondansetron HCl (Ondansetron 4 Mg/2 Ml Inj) 4 mg IV NOW ONE Stop: 03/28/23 12:14 Last Admin: 03/28/23 12:24 Dose: 4 mg Documented By: ANH Vital Signs Vital signs: Vital Signs - 8 hr 03/28/23 11:29 03/28/23 12:26 03/28/23 11:34 Temperature 98.4 F Pulse Rate 60 59 L 63 Respiratory Rate 20 26 H 25 H Blood Pressure 185/80 H Pulse Oximetry 97 98 99 Oxygen Delivery Method Nasal Cannula Nasal Cannula Oxygen Flow Rate 2 2 03/28/23 11:40 03/28/23 11:40 03/28/23 12:00 Temperature Pulse Rate 58 L Respiratory Rate 28 H Blood Pressure 184/77 H 170/74 H Pulse Oximetry 98 Oxygen Delivery Method Oxygen Flow Rate 03/28/23 12:00 03/28/23 12:30 03/28/23 12:31 Temperature Pulse Rate 58 L 58 L 55 L Respiratory Rate 26 H 35 H 30 H Blood Pressure Pulse Oximetry 98 97 98 Oxygen Delivery Method Oxygen Flow Rate 03/28/23 12:31 03/28/23 12:54 03/28/23 12:54 Temperature Pulse Rate 55 L Respiratory Rate 28 H Blood Pressure 178/70 H 164/70 H Pulse Oximetry 98 Oxygen Delivery Method Oxygen Flow Rate 03/28/23 13:00 03/28/23 13:01 03/28/23 13:01 Temperature Pulse Rate 54 L 54 L Respiratory Rate 26 H 25 H Blood Pressure 155/106 H Pulse Oximetry 98 97 Oxygen Delivery Method Oxygen Flow Rate 03/28/23 13:30 03/28/23 13:30 Temperature Pulse Rate 58 L Respiratory Rate 28 H Blood Pressure 158/72 H Pulse Oximetry 98 Oxygen Delivery Method Oxygen Flow Rate MDM - Chest Pain Lab Data Attestation: I reviewed the patient's lab results. 03/28/23 11:43 03/28/23 12:19 Labs: Lab Results 03/28/23 03/28/23 03/28/23 Range/Units 11:43 11:43 12:13 WBC 7.4 (4.5-11.0) X10^3/uL RBC 4.31 (4.0-5.2) X10^6/uL Hgb 12.4 (12.0-16.0) g/dL Hct 37.4 (36-46) % MCV 86.8 (80-100) fL MCH 28.8 (26-34) PG MCHC 33.2 (30-36) % RDW 15.1 H (11.6-14.8) % Plt Count 203 (150-400) X10^3/uL Neut % (Auto) 71.2 (50-75) % Lymph % (Auto) 14.4 L (25-40) % [place] % (Auto) 8.1 (3-14) % Eos % (Auto) 4.8 H (2-4) % Baso % (Auto) 1.5 (0-2) % Neut # (Auto) 5300 (1758-0719) /uL Lymph # (Auto) 1100 (7095-4886) /uL [place] # (Auto) 600 (0-900) /uL Eos # (Auto) 400 (0-450) /uL Baso # (Auto) 100 (0-100) /uL PT 12.7 (10.1-12.7) SECONDS INR 1.1 (0.9-1.3) APTT 34 (26-36) SECONDS Sodium (137-145) mmol/L Potassium (3.4-5.1) mmol/L Chloride (98-107) mmol/L Carbon Dioxide (22-32) mmol/L BUN (7-17) mg/dL Creatinine (0.52-1.04) mg/dL Estimated GFR (>60) mL/min BUN/Creatinine Ratio (6-22) Glucose (80-110) mg/dL Calcium (8.4-10.2) mg/dL Magnesium (1.6-2.3) mg/dL Total Bilirubin (0.2-1.3) mg/dL AST (14-36) IU/L ALT (<35) IU/L Alkaline Phosphatase (38-126) U/L Total Creatine Kinase (30-135) U/L Troponin I (0.01-0.034) ng/mL Total Protein (6.3-8.2) g/dL Albumin (3.5-5.0) g/dL Globulin (1.7-4.1) g/dL Albumin/Globulin Ratio (1.0-2.8) Lipase (23-300) U/L Procalcitonin 0.05 (<0.5) ng/mL 03/28/23 03/28/23 Range/Units 12:19 15:39 WBC (4.5-11.0) X10^3/uL RBC (4.0-5.2) X10^6/uL Hgb (12.0-16.0) g/dL Hct (36-46) % MCV (80-100) fL MCH (26-34) PG MCHC (30-36) % RDW (11.6-14.8) % Plt Count (150-400) X10^3/uL Neut % (Auto) (50-75) % Lymph % (Auto) (25-40) % [place] % (Auto) (3-14) % Eos % (Auto) (2-4) % Baso % (Auto) (0-2) % Neut # (Auto) (3039-5262) /uL Lymph # (Auto) (9730-9809) /uL [place] # (Auto) (0-900) /uL Eos # (Auto) (0-450) /uL Baso # (Auto) (0-100) /uL PT (10.1-12.7) SECONDS INR (0.9-1.3) APTT (26-36) SECONDS Sodium 138 (137-145) mmol/L Potassium 4.5 (3.4-5.1) mmol/L Chloride 104 (98-107) mmol/L Carbon Dioxide 28 (22-32) mmol/L BUN 16 (7-17) mg/dL Creatinine 0.80 (0.52-1.04) mg/dL Estimated GFR > 60 (>60) mL/min BUN/Creatinine Ratio 20.0 (6-22) Glucose 105 (80-110) mg/dL Calcium 10.0 (8.4-10.2) mg/dL Magnesium 2.2 (1.6-2.3) mg/dL Total Bilirubin 1.0 (0.2-1.3) mg/dL AST 30 (14-36) IU/L ALT 20 (<35) IU/L Alkaline Phosphatase 74 (38-126) U/L Total Creatine Kinase 35 34 (30-135) U/L Troponin I 0.019 0.013 (0.01-0.034) ng/mL Total Protein 6.7 (6.3-8.2) g/dL Albumin 3.9 (3.5-5.0) g/dL Globulin 2.8 (1.7-4.1) g/dL Albumin/Globulin Ratio 1.4 (1.0-2.8) Lipase 56 (23-300) U/L Procalcitonin (<0.5) ng/mL Imaging Data Chest x-ray: Radiologist's Impression: PROCEDURE:? XR CHEST 1V ? INDICATIONS:? chest pain ? TECHNIQUE:? One view of the chest was acquired.? ? COMPARISON:? [facility], CR, XR CHEST 1V, 12/06/2022, 18:32.? [facility], CR, XR CHEST 1V, 12/13/2022, 17:10. ? FINDINGS:? ? Surgical changes and devices:? Sternotomy.? ? Lungs and pleura:? Bilateral interstitial infiltrates suspicious for pulmonary edema.? No pleural effusions or pneumothorax.? ? Mediastinum:? Mediastinal contours appear normal.? Heart size is moderately enlarged.? ? Bones and chest wall:? No suspicious bony lesions.? Overlying soft tissues appear unremarkable.? ? IMPRESSION:? ? 1. Cardiomegaly and bilateral interstitial infiltrates suspicious for pulmonary edema.? Cannot rule out superimposed pneumonia. ECG Data Attestation: I personally reviewed and interpreted this ECG as follows: Interpretation: Sinus rhythm Occasional PVC Ventricular rate is 63 Normal QRS Normal axis No ST T wave changes MDM Narrative Medical decision making narrative: Patient has had 3 days of consistent symptoms with negative troponins and an unremarkable EKG. Her chest x-ray this have concern about potential pneumonia. She has been coughing. She does have a history of COPD. She is afebrile. After her treatment here in the ER she thinks that maybe she is somewhat better. She is less pressure in her chest. Plan to be is to put her on steroids for the next couple days. I will give her 14 tablets of steroids but she knows that she is going to take 1 tablet today for the next 5-7 days as needed and then stop taking them. She will also take the antibiotics as directed. She does have oxygen at home that she uses 17/03. She was given strict return precautions. She expressed understanding and agreement in his comfortable with going home. Discharge Plan Departure Patient Disposition: Home Clinical Impression: COPD exacerbation Instructions: DI for Chronic Obstructive Pulmonary Disease Activity Restrictions/Additional Instructions: I do recommend that you continue to take all of your medications as directed. Your next dose of steroids and the next dose of antibiotics will be tomorrow 03/29/23. Please take them as we discussed. Contact your primary doctor for a follow-up. Return to the emergency department for new or worsening symptoms Prescriptions: New azithromycin 250 mg tablet 250 mg PO DAILY 4 Days Qty: 4 0RF prednisone 20 mg tablet 20 mg PO DAILY Qty: 14 0RF No Action aspirin 81 MG tablet,delayed release (DR/EC) 81 mg PO QDAY Qty: 0 Rx Instructions: morning omega 4-ldx-fjm-fish oil [Fish Oil] 1,000 mg (120 mg-180 mg) Capsule 1,000 mg PO DAILY nitroglycerin [Nitrostat] 0.4 mg Tablet, Sublingual 0.4 mg SUBLINGUAL Q5-15M PRN (Reason: Chest Pain) vitamin E 400 unit Capsule 400 unit PO DAILY multivitamin Tablet,Chewable 1 tab PO DAILY prednisone 10 mg tablets,dose pack See Rx Instructions .ROUTE .COMPLEX Qty: 21 0RF Rx Instructions: Take 6 tablets p.o. x1 day, then 5 tablets p.o. x1 day, then 4 tablets p.o. x1 day, then 3 tablets p.o. x1 day, then 2 tablets p.o. x1 day, then 1 tablet p.o. x1 day atorvastatin [Lipitor] 20 mg tablet 40 mg PO QPM Patient Comments: patient states she forgets to take diltiazem HCl [Cartia XT] 120 mg capsule,extended release 24hr 120 mg PO QAM Patient Comments: TAKE 1 CAPSULE BY MOUTH ONCE DAILY furosemide 40 mg tablet 40 mg PO QAM Patient Comments: pt instructed to stop medications. d/c 05/10/22 levothyroxine 88 mcg tablet 88 mcg PO QAM Patient Comments: TAKE 1 TABLET BY MOUTH ONCE DAILY isosorbide mononitrate 120 mg tablet extended release 24 hr 120 mg PO QAM Patient Comments: TAKE 1 TABLET BY MOUTH ONCE DAILY IN THE MORNING lisinopril 40 mg tablet 20 mg PO QAM Patient Comments: TAKE 1 TABLET BY MOUTH ONCE DAILY clopidogrel 75 mg tablet 75 mg PO QAM ipratropium-albuterol 0.5 mg-3 mg(2.5 mg base)/3 mL solution for nebulization INHALATION PRN (Reason: Shortness Of Breath Or Wheezing) metoprolol succinate 25 mg tablet extended release 24 hr 25 mg PO DAILY Patient Comments: pt has not started, 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 take 10ml by mouth every 4 hrs as needed for cough Referrals: Catie Storm ARNP [Primary Care Provider] - Stand Alone Forms: Patient Portal/API
[2023-03-28] MEDS: ALBUTEROL/IPRATROPIUM 3 ML AMPUL INH (12:21)
[2023-03-28] MEDS: ONDANSETRON 4 MG/2 ML INJ IV (12:24)
[2023-03-28] MEDS: methylPREDNISolone 125 MG/2 ML VIAL IV (12:25)
[2023-03-28 12:38] LABS: Alanine Aminotransferase 20 IU/L (<35); Albumin 3.9 g/dL (3.5-5.0); Albumin Globulin Ratio 1.4 (1.0-2.8); Alkaline Phosphatase 74 U/L (38-126); Aspartate Aminotransferase 30 IU/L (14-36); Blood Urea Nitrogen 16 mg/dL (7-17); Carbon Dioxide 28 mmol/L (22-32); Chloride 104 mmol/L (98-107); Creatine Kinase 35 U/L (30-135); Estimated Glomerular Filt Rate > 60 mL/min (>60); Globulin 2.8 g/dL (1.7-4.1); Glucose 105 mg/dL (80-110); HEMOLYSIS < 15 (0-50); Lipase 56 U/L (23-300); Magnesium 2.2 mg/dL (1.6-2.3); Potassium 4.5 mmol/L (3.4-5.1); Sodium 138 mmol/L (137-145); Total Protein 6.7 g/dL (6.3-8.2)
[2023-03-28 12:50] LABS: Troponin I 0.019 ng/mL (0.01-0.034)
[2023-03-28 12:55] LABS: Procalcitonin 0.05 ng/mL (<0.5)
[2023-03-28 15:55] LABS: Creatine Kinase 34 U/L (30-135)
[2023-03-28 16:08] LABS: Troponin I 0.013 ng/mL (0.01-0.034)
[2023-03-28] MEDS: AZITHROMYCIN 250 MG TABLET 500 MG PO (16:44)
== END 2023-03-28 17:28 | disposition home or self-care (01) ==
PROVIDERS: Emergency Provider Emergency Medicine; PCP Nurse Practitioner Family
DX: J44.1 Chronic obstructive pulmonary disease with (acute) exacerbation (principal); R05.9 Cough, unspecified
CPT/HCPCS: 36415; 71045; 80053; 82550; 83690; 83735; 84145; 84484; 85025; 85610; 85730; 93005; 93010; 94640; 96374; 96375; 99284; 99285; J2405; J2930

== ENCOUNTER → 2023-04-30 11:45 | Outpatient (CLI) | payer OTHER, SELFPAY ==
[2021-12-22 01:28] VITALS: BMI 25.3
[2023-04-29 11:27] VITALS: BMI 25.3
== END ==
PROVIDERS: PCP Nurse Practitioner Family; Referring Provider Internal Medicine Critical Care Medicine; Visit Provider Internal Medicine Critical Care Medicine
DX: J96.11 Chronic respiratory failure with hypoxia (principal); J44.9 Chronic obstructive pulmonary disease, unspecified; Z87.891 Personal history of nicotine dependence
CPT/HCPCS: 94060; 94726; 94729

== ENCOUNTER 2023-05-15 19:35 | Inpatient (IN) | payer OTHER, SELFPAY ==
[2023-04-29 11:27] VITALS: BMI 25.3
[2023-05-15] VITALS (14 sets, daily range): BP systolic 162–196; BP diastolic 72–118; PULSE 61–67; RESP 19–24; TEMP 36.4; O2SAT 92–96; BMI 24.2
--- NOTE | 2023-05-15 19:54 | DI.RAD.S_ITS ---
PROCEDURE: XR CHEST 1V INDICATIONS: chest pain TECHNIQUE: One view of the chest was acquired. COMPARISON: [facility], CR, XR CHEST 1V, 03/28/2023, 11:35. FINDINGS: Surgical changes and devices: Postsurgical changes redemonstrated within the mediastinum. Lungs and pleura: Lungs are clear. No pleural effusions or pneumothorax. Mediastinum: Mediastinal contours are unchanged. Heart size is enlarged. Bones and chest wall: No suspicious bony lesions. Overlying soft tissues appear unremarkable. IMPRESSION: 1. No acute cardiopulmonary disease. Dictated by: Marvin Sarah M.D. on 05/15/2023 at 20:56 Approved by: Marvin Sarah M.D. on 05/15/2023 at 20:57
[2023-05-15 20:11] LABS: Add Manual Diff / Slide Review NO; Basophils Absolute Auto 200 /uL (0-100); Basophils Percent Auto 2.3 % (0-2); Eosinophils Absolute Auto 300 /uL (0-450); Eosinophils Percent Auto 4.5 % (2-4); Hematocrit 38.5 % (36-46); Hemoglobin 12.8 g/dL (12.0-16.0); Lymphocytes Absolute Auto 1400 /uL (1100-4500); Lymphocytes Percent Auto 18.9 % (25-40); Mean Corpuscular HGB Conc 33.4 % (30-36); Mean Corpuscular Hemoglobin 28.3 PG (26-34); Mean Corpuscular Volume 84.9 fL (80-100); Monocytes Absolute Auto 500 /uL (0-900); Monocytes Percent Auto 6.4 % (3-14); Neutrophils Absolute Auto 5000 /uL (1500-7000); Neutrophils Percent Auto 67.9 % (50-75); Platelet Count 195 X10^3/uL (150-400); Red Blood Cell Count 4.53 X10^6/uL (4.0-5.2); Red Cell Distribution Width 15.4 % (11.6-14.8); White Blood Cell Count 7.3 X10^3/uL (4.5-11.0)
[2023-05-15 20:16] LABS: INR 1.1 (0.9-1.3); Prothrombin Time 12.2 SECONDS (10.1-12.7)
[2023-05-15 20:19] LABS: PTT Partial Thromboplastin Tim 29 SECONDS (26-36)
[2023-05-15 20:28] LABS: Alanine Aminotransferase 20 IU/L (<35); Albumin 3.9 g/dL (3.5-5.0); Albumin Globulin Ratio 1.3 (1.0-2.8); Alkaline Phosphatase 63 U/L (38-126); Aspartate Aminotransferase 46 IU/L (14-36); BUN Creatinine Ratio 29.7 (6-22); Bilirubin Total 0.5 mg/dL (0.2-1.3); Blood Urea Nitrogen 30 mg/dL (7-17); Calcium 9.6 mg/dL (8.4-10.2); Carbon Dioxide 31 mmol/L (22-32); Chloride 99 mmol/L (98-107); Creatine Kinase 94 U/L (30-135); Estimated Glomerular Filt Rate 54 mL/min (>60); Globulin 2.9 g/dL (1.7-4.1); Glucose 150 mg/dL (80-110); HEMOLYSIS 40 (0-50); Lipase 83 U/L (23-300); Potassium 3.5 mmol/L (3.4-5.1); Sodium 138 mmol/L (137-145); Total Protein 6.8 g/dL (6.3-8.2)
--- NOTE | 2023-05-15 20:50 | PC.NURSE ---
ED MD at bedside assessing pt. Pt is A&Ox4 and is able to speaking full clear sentences. Pt reports minor chest discomfort. Pt's skin is warm dry and pink. MD educated pt on plan of care and pt has no further questions at this time.
--- NOTE | 2023-05-15 20:56 | ED.CHESTPAIN ---
HPI - Chest Pain <Rima Arturo, DO - Last Filed: 05/16/23 23:56> General Chief Complaint: Chest Pain Stated Complaint: Chest Discomfort Time Seen by Provider: 05/15/23 20:44 Source: patient and EMS Mode of arrival: EMS Limitations: no limitations History of Present Illness HPI narrative: Patient is an 87-year-old female history of coronary artery disease with three-vessel CABG on Plavix chronically on O2 since COVID in 2019 presenting today with chest discomfort. She reports that she made her son and his friends dinner she felt some chest heaviness got extremely sweaty and nauseous. Pain did not radiate. She received nitro and aspirin with EMS and pain has since resolved. No worsening shortness of breath no fever chills. Related Data Home Medications Medication Instructions Recorded Confirmed aspirin 81 mg tablet,delayed 81 mg PO QDAY ##0 07/11/17 05/16/23 release multivitamin 1 tab PO DAILY 07/07/18 05/16/23 nitroglycerin 0.4 mg sublingual 0.4 mg sublingual Q5-15M PRN Chest 07/07/18 05/16/23 tablet (Nitrostat) Pain omega [id number]-rpu-pht-fish oil 1,000 mg 1,000 mg PO DAILY 07/07/18 05/16/23 (120 mg-180 mg) capsule (Fish Oil) vitamin E 268 mg (400 unit) capsule 400 unit PO DAILY 07/07/18 05/16/23 atorvastatin 20 mg tablet (Lipitor) 40 mg PO QPM 05/04/22 05/16/23 diltiazem HCl 120 mg 120 mg PO QAM 05/04/22 05/16/23 capsule,extended release 24 hr (Cartia XT) isosorbide mononitrate 120 mg 120 mg PO QAM 05/04/22 05/16/23 tablet,extended release 24 hr levothyroxine 88 mcg tablet 88 mcg PO QAM 05/04/22 05/16/23 lisinopril 40 mg tablet 20 mg PO QAM 05/04/22 05/16/23 albuterol 90 mcg/actuation aerosol 90 mcg inhalation Q4-6H PRN 05/20/22 05/16/23 inhaler Shortness Of Breath clopidogrel 75 mg tablet 75 mg PO QAM 05/20/22 05/16/23 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 10 mg tablet 10 mg PO TID PRN Muscle Spasm 05/20/22 05/16/23 ipratropium 0.5 mg-albuterol 3 mg ml inhalation PRN Shortness Of 05/20/22 04/29/23 (2.5 mg base)/3 mL nebulization Breath Or Wheezing soln metoprolol succinate 25 mg 25 mg PO DAILY 05/20/22 05/16/23 tablet,extended release 24 hr torsemide 20 mg tablet 40 mg PO DAILY 04/29/23 05/16/23 fluticasone 500 mcg-salmeterol 50 1 ea inhalation BID 05/16/23 05/16/23 mcg/dose blistr powdr for inhalation (Advair Diskus) prednisone 20 mg tablet 20 mg PO DAILY PRN Shortness Of 05/16/23 05/16/23 Breath Or Wheezing Allergies Allergy/AdvReac Type Severity Reaction Status Date / Time amlodipine Allergy Intermediate Verified 05/16/23 09:28 doxazosin [From Cardura] Allergy Intermediate Rash Verified 05/16/23 09:28 doxycycline Allergy Intermediate Rash Verified 05/16/23 09:28 gemfibrozil Allergy Intermediate Rash Verified 05/16/23 09:28 levofloxacin Allergy Intermediate Rash Verified 05/16/23 09:28 losartan Allergy Intermediate Rash Verified 05/16/23 09:28 montelukast [From Singulair] Allergy Intermediate Difficulty Verified 05/16/23 09:28 Breathing Sulfa (Sulfonamide Allergy Intermediate rash Verified 05/16/23 09:28 Antibiotics) sulfamethoxazole Allergy Intermediate Rash Verified 05/16/23 09:28 [From Bactrim] trimethoprim [From Bactrim] Allergy Intermediate Rash Verified 05/16/23 09:28 carvedilol Allergy Mild Rash Verified 05/16/23 09:28 acarbose AdvReac Intermediate Abdominal Verified 05/16/23 09:28 Pain chlorthalidone AdvReac Intermediate Redness of Verified 05/16/23 09:28 Skin metoprolol AdvReac Intermediate Verified 05/16/23 09:28 nifedipine AdvReac Intermediate Chills Verified 05/16/23 09:28 budesonide [From Symbicort] AdvReac Mild Anxiety Verified 05/16/23 09:28 choline fenofibrate AdvReac Mild Gastrointestinal Verified 05/16/23 09:28 [From Trilipix] Upset formoterol [From Symbicort] AdvReac Mild Anxiety Verified 05/16/23 09:28 Review of Systems <Rima Woodard DO - Last Filed: 05/16/23 23:56> Review of Systems ROS Unobtainable: All systems reviewed & are unremarkable except as noted in HPI and below Patient History <Rima Woodard DO - Last Filed: 05/16/23 23:56> Medical History (Updated 05/16/23 @ 21:39 by Rima Woodard DO) Aneurysm of infrarenal abdominal aorta Bilateral carpal tunnel syndrome CAD (coronary artery disease) COPD (chronic obstructive pulmonary disease) with emphysema Elevated TSH HTN (hypertension) Hyperlipidemia Unstable angina Valvular heart disease Surgical History H/O hysterectomy with oophorectomy H/O three vessel coronary artery bypass Hx of heart artery stent Status post cholecystectomy Family History Father Lung cancer Mother COPD (chronic obstructive pulmonary disease) Social History household members: family, children and friend(s) Smoking Status: Former smoker alcohol intake: never Smoking Status: Former smoker tobacco type: cigarettes alcohol intake frequency: 0-2 drinks per day Substance Use Type: does not use Exam <Rima Woodard DO - Last Filed: 05/16/23 23:56> Initial Vital Signs Initial Vital Signs: Vital Signs Temperature 97.6 F 05/15/23 19:41 Pulse Rate 62 05/15/23 19:41 Respiratory Rate 20 05/15/23 19:41 Blood Pressure 184/85 H 05/15/23 19:41 Pulse Oximetry 96 05/15/23 19:41 Oxygen Delivery Method Nasal Cannula 05/15/23 19:41 Oxygen Flow Rate 2 05/15/23 19:41 GENERAL: Alert very pleasant well-appearing 87-year-old female HEENT: Head atraumatic,EOMI, pupils reactive, face symmetric, moist mucous membranes CARDIOVASCULAR: Regular rate and rhythm without murmurs, rubs or gallops. RESPIRATORY: Breath sounds equal bilaterally, no wheezes rales or rhonchi. ABDOMEN: Soft, nontender. Normoactive bowel sounds all 4 quadrants. No guarding or rebound. EXTREMITIES: Normal range of motion, no clubbing or edema. Neurovascularly intact NEUROLOGICAL: Alert and oriented x4.Normal gait and speech. SKIN: Warm, dry, no laceration, no petechiae, no rashes or lesions. <Leland Lal DO - Last Filed: 05/17/23 06:32> Initial Vital Signs Initial Vital Signs: Vital Signs Temperature 97.6 F 05/15/23 19:41 Pulse Rate 62 05/15/23 19:41 Respiratory Rate 20 05/15/23 19:41 Blood Pressure 184/85 H 05/15/23 19:41 Pulse Oximetry 96 05/15/23 19:41 Oxygen Delivery Method Nasal Cannula 05/15/23 19:41 Oxygen Flow Rate 2 05/15/23 19:41 Course <Rima Woodard, DO - Last Filed: 05/16/23 23:56> Orders Ordered: Albuterol (Albuterol 2.5 Mg/3 Ml Neb (Adult)) 2.5 mg INH Q4H PRN PRN Reason: Shortness Of Breath Albuterol (Albuterol 2.5 Mg/3 Ml Neb (Adult)) 2.5 mg INH Q4HRWA ROLANDA Aspirin (Aspirin Ec 81 Mg Tablet) 81 mg PO DAILY ROLANDA Atorvastatin Calcium (Atorvastatin 20 Mg Tablet) 40 mg PO QPM ROLANDA Budesonide (Budesonide 0.5 Mg/2 Ml Neb) 0.5 mg INH RTBID ROLANDA Clopidogrel Bisulfate (Clopidogrel 75 Mg Tablet) 75 mg PO DAILY ROLANDA Diltiazem HCl (Diltiazem Cd 120 Mg Cap) 120 mg PO DAILY ROLANDA Fish Oil (Fish Oil 1,000 Mg Capsule) 1,000 mg PO DAILY ROLANDA Heparin Sodium/Dextrose (Heparin Drip) 25,000 unit in 500 mls @ 13.063 mls/hr IV CONT ROLANDA; Protocol Last Titration: 05/16/23 12:05 Dose: 10.2 units/kg/hr, 11.1 mls/hr Documented By: NL Co-signed By: KAIN Titration: 05/16/23 10:35 Dose: 12 units/kg/hr, 13.063 mls/hr Documented By: NL Co-signed By: ALHAJI Admin: 05/15/23 21:15 Dose: 12 units/kg/hr, 13.063 mls/hr Documented By: HANNA Co-signed By: RUBY Heparin Sodium/Dextrose (Heparin Drip) 25,000 unit in 500 mls @ 20 mls/hr IV CONT ROLANDA; Protocol Isosorbide Mononitrate (Isosorbide Mononitrate Er 30 Mg Tablet) 120 mg PO DAILY ROLANDA Levothyroxine Sodium (Levothyroxine 88 Mcg Tablet) 88 mcg PO DAILY@0600 ROLANDA Levothyroxine Sodium (Levothyroxine 88 Mcg Tablet) 88 mcg PO QACBREAK [facility] Lisinopril (Lisinopril 20 Mg Tablet) 20 mg PO DAILY [facility] Metoprolol Succinate (Metoprolol Er 25 Mg Tablet) 25 mg PO DAILY [facility] Multivitamins (Multivitamin 1 Tablet) 1 tab PO DAILY [facility] Naloxone HCl (Naloxone 0.4 Mg/Ml Vial) 0.2 mg IV Q2MIN PRN PRN Reason: Opiate Reversal Nitroglycerin (Nitroglycerin 0.4 Mg Sl Tab) 0.4 mg SL [id number] PRN PRN Reason: Chest Pain Nitroglycerin (Nitroglycerin 0.4 Mg Sl Tab) 0.4 mg SL Q5M PRN PRN Reason: Chest Pain Torsemide (Torsemide 10 Mg Tablet) 40 mg PO DAILY [facility] Discontinued Medications Atorvastatin Calcium (Atorvastatin 20 Mg Tablet) 40 mg PO NOW ONE Stop: 05/16/23 12:19 Last Admin: 05/16/23 12:53 Dose: 40 mg Documented By: AVINASH Clopidogrel Bisulfate (Clopidogrel 75 Mg Tablet) 75 mg PO NOW ONE Stop: 05/16/23 13:07 Last Admin: 05/16/23 13:53 Dose: 75 mg Documented By: JORGE Heparin Sodium (Porcine) (Heparin 5,000 Unit/Ml Vial) 4,000 unit IV NOW ONE Stop: 05/15/23 20:57 Last Admin: 05/15/23 21:10 Dose: 4,000 unit Documented By: HANNA Lisinopril (Lisinopril 20 Mg Tablet) 20 mg PO NOW ONE Stop: 05/16/23 12:20 Last Admin: 05/16/23 12:53 Dose: 20 mg Documented By: AVINASH Torsemide (Torsemide 10 Mg Tablet) 20 mg PO NOW ONE Stop: 05/16/23 12:20 Last Admin: 05/16/23 12:53 Dose: 20 mg Documented By: AVINASH Vital Signs Vital signs: Vital Signs - 8 hr 09/22/23 16:00 05/16/23 16:01 05/16/23 16:01 Pulse Rate 54 L 54 L Respiratory Rate 20 19 Blood Pressure 169/71 H Pulse Oximetry 99 99 Oxygen Delivery Method Oxygen Flow Rate 05/16/23 16:30 05/16/23 16:30 05/16/23 17:00 Pulse Rate 56 L Respiratory Rate 19 Blood Pressure 170/72 H 166/97 H Pulse Oximetry 99 Oxygen Delivery Method Oxygen Flow Rate 05/16/23 17:00 05/16/23 17:30 05/16/23 17:30 Pulse Rate 62 62 Respiratory Rate 24 20 Blood Pressure 162/70 H Pulse Oximetry 98 99 Oxygen Delivery Method Oxygen Flow Rate 05/16/23 18:00 05/16/23 18:00 05/16/23 19:30 Pulse Rate 63 Respiratory Rate 20 Blood Pressure 179/74 H Pulse Oximetry 99 Oxygen Delivery Method Room Air Nasal Cannula Oxygen Flow Rate 05/16/23 18:30 05/16/23 18:31 05/16/23 18:31 Pulse Rate 72 69 Respiratory Rate 35 H 28 H Blood Pressure 132/80 Pulse Oximetry Oxygen Delivery Method Oxygen Flow Rate 05/16/23 19:00 05/16/23 19:01 05/16/23 19:01 Pulse Rate 61 61 Respiratory Rate 32 H 41 H Blood Pressure 200/80 H Pulse Oximetry 100 99 Oxygen Delivery Method Oxygen Flow Rate 05/16/23 19:30 05/16/23 19:31 05/16/23 19:31 Pulse Rate 64 66 Respiratory Rate 25 H 28 H Blood Pressure 199/81 H Pulse Oximetry 99 100 Oxygen Delivery Method Oxygen Flow Rate 05/16/23 20:00 05/16/23 20:00 05/16/23 20:30 Pulse Rate 78 72 Respiratory Rate 23 21 Blood Pressure 184/95 H Pulse Oximetry 99 99 Oxygen Delivery Method Oxygen Flow Rate 05/16/23 20:31 05/16/23 20:31 05/16/23 21:00 Pulse Rate 71 69 Respiratory Rate 20 19 Blood Pressure 178/62 H Pulse Oximetry 98 98 Oxygen Delivery Method Oxygen Flow Rate 05/16/23 21:01 05/16/23 21:01 05/16/23 21:30 Pulse Rate 68 Respiratory Rate 18 Blood Pressure 143/63 H 163/70 H Pulse Oximetry 98 Oxygen Delivery Method Oxygen Flow Rate 05/16/23 21:30 Pulse Rate 72 Respiratory Rate 18 Blood Pressure Pulse Oximetry 98 Oxygen Delivery Method Nasal Cannula Oxygen Flow Rate 2 <Leland Lal DO - Last Filed: 05/17/23 06:32> Orders Ordered: Albuterol (Albuterol 2.5 Mg/3 Ml Neb (Adult)) 2.5 mg INH Q4H PRN PRN Reason: Shortness Of Breath Albuterol (Albuterol 2.5 Mg/3 Ml Neb (Adult)) 2.5 mg INH Q4HRWA [facility] Aspirin (Aspirin Ec 81 Mg Tablet) 81 mg PO DAILY [facility] Atorvastatin Calcium (Atorvastatin 20 Mg Tablet) 40 mg PO QPM ROLANDA Budesonide (Budesonide 0.5 Mg/2 Ml Neb) 0.5 mg INH RTBID ROLANDA Clopidogrel Bisulfate (Clopidogrel 75 Mg Tablet) 75 mg PO DAILY [facility] Diltiazem HCl (Diltiazem Cd 120 Mg Cap) 120 mg PO DAILY [facility] Fish Oil (Fish Oil 1,000 Mg Capsule) 1,000 mg PO DAILY [facility] Heparin Sodium/Dextrose (Heparin Drip) 25,000 unit in 500 mls @ 13.063 mls/hr IV CONT ROLANDA; Protocol Last Titration: 05/16/23 12:05 Dose: 10.2 units/kg/hr, 11.1 mls/hr Documented By: NL Co-signed By: KAIN Titration: 05/16/23 10:35 Dose: 12 units/kg/hr, 13.063 mls/hr Documented By: NL Co-signed By: ALHAJI Admin: 05/15/23 21:15 Dose: 12 units/kg/hr, 13.063 mls/hr Documented By: HANNA Co-signed By: RUBY Heparin Sodium/Dextrose (Heparin Drip) 25,000 unit in 500 mls @ 20 mls/hr IV CONT ROLANDA; Protocol Isosorbide Mononitrate (Isosorbide Mononitrate Er 30 Mg Tablet) 120 mg PO DAILY [facility] Levothyroxine Sodium (Levothyroxine 88 Mcg Tablet) 88 mcg PO DAILY@0600 [facility] Levothyroxine Sodium (Levothyroxine 88 Mcg Tablet) 88 mcg PO QACBREAK [facility] Lisinopril (Lisinopril 20 Mg Tablet) 20 mg PO DAILY [facility] Metoprolol Succinate (Metoprolol Er 25 Mg Tablet) 25 mg PO DAILY ROLANDA Multivitamins (Multivitamin 1 Tablet) 1 tab PO DAILY [facility] Naloxone HCl (Naloxone 0.4 Mg/Ml Vial) 0.2 mg IV Q2MIN PRN PRN Reason: Opiate Reversal Nitroglycerin (Nitroglycerin 0.4 Mg Sl Tab) 0.4 mg SL [id number] PRN PRN Reason: Chest Pain Nitroglycerin (Nitroglycerin 0.4 Mg Sl Tab) 0.4 mg SL Q5M PRN PRN Reason: Chest Pain Torsemide (Torsemide 10 Mg Tablet) 40 mg PO DAILY ROLANDA Discontinued Medications Atorvastatin Calcium (Atorvastatin 20 Mg Tablet) 40 mg PO NOW ONE Stop: 05/16/23 12:19 Last Admin: 05/16/23 12:53 Dose: 40 mg Documented By: AVINASH Clopidogrel Bisulfate (Clopidogrel 75 Mg Tablet) 75 mg PO NOW ONE Stop: 05/16/23 13:07 Last Admin: 05/16/23 13:53 Dose: 75 mg Documented By: JORGE Heparin Sodium (Porcine) (Heparin 5,000 Unit/Ml Vial) 4,000 unit IV NOW ONE Stop: 05/15/23 20:57 Last Admin: 05/15/23 21:10 Dose: 4,000 unit Documented By: HANNA Lisinopril (Lisinopril 20 Mg Tablet) 20 mg PO NOW ONE Stop: 05/16/23 12:20 Last Admin: 05/16/23 12:53 Dose: 20 mg Documented By: AVINASH Torsemide (Torsemide 10 Mg Tablet) 20 mg PO NOW ONE Stop: 05/16/23 12:20 Last Admin: 05/16/23 12:53 Dose: 20 mg Documented By: AVINASH Vital Signs Vital signs: Vital Signs - 8 hr 05/16/23 16:00 05/16/23 16:01 05/16/23 16:01 Pulse Rate 54 L 54 L Respiratory Rate 20 19 Blood Pressure 169/71 H Pulse Oximetry 99 99 Oxygen Delivery Method Oxygen Flow Rate 05/16/23 16:30 05/16/23 16:30 05/16/23 17:00 Pulse Rate 56 L Respiratory Rate 19 Blood Pressure 170/72 H 166/97 H Pulse Oximetry 99 Oxygen Delivery Method Oxygen Flow Rate 05/16/23 17:00 05/16/23 17:30 05/16/23 17:30 Pulse Rate 62 62 Respiratory Rate 24 20 Blood Pressure 162/70 H Pulse Oximetry 98 99 Oxygen Delivery Method Oxygen Flow Rate 05/16/23 18:00 05/16/23 18:00 05/16/23 19:30 Pulse Rate 63 Respiratory Rate 20 Blood Pressure 179/74 H Pulse Oximetry 99 Oxygen Delivery Method Room Air Nasal Cannula Oxygen Flow Rate 05/16/23 18:30 05/16/23 18:31 05/16/23 18:31 Pulse Rate 72 69 Respiratory Rate 35 H 28 H Blood Pressure 132/80 Pulse Oximetry Oxygen Delivery Method Oxygen Flow Rate 05/16/23 19:00 05/16/23 19:01 05/16/23 19:01 Pulse Rate 61 61 Respiratory Rate 32 H 41 H Blood Pressure 200/80 H Pulse Oximetry 100 99 Oxygen Delivery Method Oxygen Flow Rate 05/16/23 19:30 05/16/23 19:31 05/16/23 19:31 Pulse Rate 64 66 Respiratory Rate 25 H 28 H Blood Pressure 199/81 H Pulse Oximetry 99 100 Oxygen Delivery Method Oxygen Flow Rate 05/16/23 20:00 05/16/23 20:00 05/16/23 20:30 Pulse Rate 78 72 Respiratory Rate 23 21 Blood Pressure 184/95 H Pulse Oximetry 99 99 Oxygen Delivery Method Oxygen Flow Rate 05/16/23 20:31 05/16/23 20:31 05/16/23 21:00 Pulse Rate 71 69 Respiratory Rate 20 19 Blood Pressure 178/62 H Pulse Oximetry 98 98 Oxygen Delivery Method Oxygen Flow Rate 05/16/23 21:01 05/16/23 21:01 05/16/23 21:30 Pulse Rate 68 Respiratory Rate 18 Blood Pressure 143/63 H 163/70 H Pulse Oximetry 98 Oxygen Delivery Method Oxygen Flow Rate 05/16/23 21:30 Pulse Rate 72 Respiratory Rate 18 Blood Pressure Pulse Oximetry 98 Oxygen Delivery Method Nasal Cannula Oxygen Flow Rate 2 MDM - Chest Pain <Rima Woodard, DO - Last Filed: 05/16/23 23:56> Lab Data 05/17/23 05:10 05/17/23 05:10 Labs: Lab Results 05/15/23 05/15/23 05/15/23 Range/Units 19:50 19:50 19:50 WBC 7.3 (4.5-11.0) X10^3/uL RBC 4.53 (4.0-5.2) X10^6/uL Hgb 12.8 (12.0-16.0) g/dL Hct 38.5 (36-46) % MCV 84.9 (80-100) fL MCH 28.3 (26-34) PG MCHC 33.4 (30-36) % RDW 15.4 H (11.6-14.8) % Plt Count 195 (150-400) X10^3/uL Neut % (Auto) 67.9 (50-75) % Lymph % (Auto) 18.9 L (25-40) % Kern % (Auto) 6.4 (3-14) % Eos % (Auto) 4.5 H (2-4) % Baso % (Auto) 2.3 H (0-2) % Neut # (Auto) 5000 (7064-8106) /uL Lymph # (Auto) 1400 (9560-5543) /uL Kern # (Auto) 500 (0-900) /uL Eos # (Auto) 300 (0-450) /uL Baso # (Auto) 200 H (0-100) /uL PT 12.2 (10.1-12.7) SECONDS INR 1.1 (0.9-1.3) APTT 29 (26-36) SECONDS Sodium 138 (137-145) mmol/L Potassium 3.5 (3.4-5.1) mmol/L Chloride 99 (98-107) mmol/L Carbon Dioxide 31 (22-32) mmol/L BUN 30 H (7-17) mg/dL Creatinine 1.01 (0.52-1.04) mg/dL Estimated GFR 54 L (>60) mL/min BUN/Creatinine Ratio 29.7 H (6-22) Glucose 150 H (80-110) mg/dL Calcium 9.6 (8.4-10.2) mg/dL Magnesium 2.0 (1.6-2.3) mg/dL Total Bilirubin 0.5 (0.2-1.3) mg/dL AST 46 H (14-36) IU/L ALT 20 (<35) IU/L Alkaline Phosphatase 63 (38-126) U/L Total Creatine Kinase 94 (30-135) U/L Troponin I 1.950 H* (0.01-0.034) ng/mL Total Protein 6.8 (6.3-8.2) g/dL Albumin 3.9 (3.5-5.0) g/dL Globulin 2.9 (1.7-4.1) g/dL Albumin/Globulin Ratio 1.3 (1.0-2.8) Lipase 83 (23-300) U/L SARS-CoV-2 (PCR) (Negative) 05/15/23 05/15/23 05/16/23 Range/Units 21:57 22:00 03:00 WBC (4.5-11.0) X10^3/uL RBC (4.0-5.2) X10^6/uL Hgb (12.0-16.0) g/dL Hct (36-46) % MCV (80-100) fL MCH (26-34) PG MCHC (30-36) % RDW (11.6-14.8) % Plt Count (150-400) X10^3/uL Neut % (Auto) (50-75) % Lymph % (Auto) (25-40) % Kern % (Auto) (3-14) % Eos % (Auto) (2-4) % Baso % (Auto) (0-2) % Neut # (Auto) (8212-4481) /uL Lymph # (Auto) (1693-8615) /uL Kern # (Auto) (0-900) /uL Eos # (Auto) (0-450) /uL Baso # (Auto) (0-100) /uL PT (10.1-12.7) SECONDS INR (0.9-1.3) APTT 118 H* D (26-36) SECONDS Sodium (137-145) mmol/L Potassium (3.4-5.1) mmol/L Chloride (98-107) mmol/L Carbon Dioxide (22-32) mmol/L BUN (7-17) mg/dL Creatinine (0.52-1.04) mg/dL Estimated GFR (>60) mL/min BUN/Creatinine Ratio (6-22) Glucose (80-110) mg/dL Calcium (8.4-10.2) mg/dL Magnesium (1.6-2.3) mg/dL Total Bilirubin (0.2-1.3) mg/dL AST (14-36) IU/L ALT (<35) IU/L Alkaline Phosphatase (38-126) U/L Total Creatine Kinase (30-135) U/L Troponin I 1.990 H* (0.01-0.034) ng/mL Total Protein (6.3-8.2) g/dL Albumin (3.5-5.0) g/dL Globulin (1.7-4.1) g/dL Albumin/Globulin Ratio (1.0-2.8) Lipase (23-300) U/L SARS-CoV-2 (PCR) Negative (Negative) 05/16/23 05/16/23 05/16/23 Range/Units 06:12 06:12 09:25 WBC 7.1 (4.5-11.0) X10^3/uL RBC 4.63 (4.0-5.2) X10^6/uL Hgb 13.0 (12.0-16.0) g/dL Hct 38.9 (36-46) % MCV 84.0 (80-100) fL MCH 28.1 (26-34) PG MCHC 33.5 (30-36) % RDW 15.5 H (11.6-14.8) % Plt Count 182 (150-400) X10^3/uL Neut % (Auto) 61.4 (50-75) % Lymph % (Auto) 24.7 L (25-40) % Kern % (Auto) 7.1 (3-14) % Eos % (Auto) 5.4 H (2-4) % Baso % (Auto) 1.4 (0-2) % Neut # (Auto) 4300 (4448-6184) /uL Lymph # (Auto) 1700 (2168-7033) /uL Kern # (Auto) 500 (0-900) /uL Eos # (Auto) 400 (0-450) /uL Baso # (Auto) 100 (0-100) /uL PT (10.1-12.7) SECONDS INR (0.9-1.3) APTT 85 H* D (26-36) SECONDS Sodium 139 (137-145) mmol/L Potassium 3.3 L (3.4-5.1) mmol/L Chloride 103 (98-107) mmol/L Carbon Dioxide 28 (22-32) mmol/L BUN 22 H (7-17) mg/dL Creatinine 0.90 (0.52-1.04) mg/dL Estimated GFR > 60 (>60) mL/min BUN/Creatinine Ratio 24.4 H (6-22) Glucose 112 H (80-110) mg/dL Calcium 9.2 (8.4-10.2) mg/dL Magnesium (1.6-2.3) mg/dL Total Bilirubin 0.5 (0.2-1.3) mg/dL AST 36 (14-36) IU/L ALT 19 (<35) IU/L Alkaline Phosphatase 66 (38-126) U/L Total Creatine Kinase 53 (30-135) U/L Troponin I 1.460 H* (0.01-0.034) ng/mL Total Protein 6.1 L (6.3-8.2) g/dL Albumin 3.4 L (3.5-5.0) g/dL Globulin 2.7 (1.7-4.1) g/dL Albumin/Globulin Ratio 1.3 (1.0-2.8) Lipase (23-300) U/L SARS-CoV-2 (PCR) (Negative) 05/16/23 Range/Units 16:38 WBC (4.5-11.0) X10^3/uL RBC (4.0-5.2) X10^6/uL Hgb (12.0-16.0) g/dL Hct (36-46) % MCV (80-100) fL MCH (26-34) PG MCHC (30-36) % RDW (11.6-14.8) % Plt Count (150-400) X10^3/uL Neut % (Auto) (50-75) % Lymph % (Auto) (25-40) % Kern % (Auto) (3-14) % Eos % (Auto) (2-4) % Baso % (Auto) (0-2) % Neut # (Auto) (1050-9662) /uL Lymph # (Auto) (7224-6652) /uL Kern # (Auto) (0-900) /uL Eos # (Auto) (0-450) /uL Baso # (Auto) (0-100) /uL PT (10.1-12.7) SECONDS INR (0.9-1.3) APTT 58 H D (26-36) SECONDS Sodium (137-145) mmol/L Potassium (3.4-5.1) mmol/L Chloride (98-107) mmol/L Carbon Dioxide (22-32) mmol/L BUN (7-17) mg/dL Creatinine (0.52-1.04) mg/dL Estimated GFR (>60) mL/min BUN/Creatinine Ratio (6-22) Glucose (80-110) mg/dL Calcium (8.4-10.2) mg/dL Magnesium (1.6-2.3) mg/dL Total Bilirubin (0.2-1.3) mg/dL AST (14-36) IU/L ALT (<35) IU/L Alkaline Phosphatase (38-126) U/L Total Creatine Kinase (30-135) U/L Troponin I (0.01-0.034) ng/mL Total Protein (6.3-8.2) g/dL Albumin (3.5-5.0) g/dL Globulin (1.7-4.1) g/dL Albumin/Globulin Ratio (1.0-2.8) Lipase (23-300) U/L SARS-CoV-2 (PCR) (Negative) Imaging Data Chest x-ray: Radiologist's Impression: PROCEDURE:? XR CHEST 1V ? INDICATIONS:? chest pain ? TECHNIQUE:? One view of the chest was acquired.? ? COMPARISON:? [facility], , XR CHEST 1V, 03/28/2023, 11:35. ? FINDINGS:? ? Surgical changes and devices:? Postsurgical changes redemonstrated within the mediastinum.? ? Lungs and pleura:? Lungs are clear.? No pleural effusions or pneumothorax.? ? Mediastinum:? Mediastinal contours are unchanged.? Heart size is enlarged. ? Bones and chest wall:? No suspicious bony lesions.? Overlying soft tissues appear unremarkable.? ? ? IMPRESSION:? ? 1.? No acute cardiopulmonary disease. ? ? Dictated by: Marvin Sarah M.D. on 05/15/2023 at 20:56 ? ? ECG Data Interpretation: EKG 1. Sinus rhythm rate 65 right bundle-branch block noted is more pronounced ST depression in V1 and aVL she is Q-waves in lead 3 and AVF with some slight ST elevation but that has been there previously no STEMI EKG2 sinus rhythm persistent ST changes no ST elevation EKG 3. Sinus rhythm rate 48 no acute changes MDM Narrative Medical decision making narrative: Patient 87-year-old female who presents today with chest pain pressure nausea and diaphoresis. History of coronary artery disease with three-vessel CABG. Is found to have elevated troponin at 1.9. She received aspirin and nitro in the ED and has been chest pain-free in the ED. MDM CC: Chest Pain Complicating co-morbidities: CHF hypertension coronary artery disease with CABG Corroborating data: [ ] Data collected from: [ ] Medical records reviewed: [ ] Differential considered: STEMI, NSTEMI, ACS Exam documented above, pertinent findings include: Positive troponin Lab Test results independently reviewed as above. Pertinent findings: Independently reviewed EKG as above: No STEMI Imaging studies independently reviewed: Chest x-ray negative Consultations: Dr. Short cardiology agrees with happened drip and transfer for cardiac catheterizations Treatments: Heparin. Received aspirin and nitro prior to ED Re-evaluations: Continues to be chest pain-free although heart started to slow down. Discussion: Patient is stable and has been chest pain-free in the ED. She has no obvious ST elevation but does have some worsening depression in 1 and aVL. She is a persistent right bundle-branch which is also new. She is elevated troponin at 1.9. Critical bed shortage patient is on multiple this waiting to be transferred. She is stable at this time. Echocardiogram is ordered for morning. Diagnosis: [ ] Disposition: see below, along with detailed discharge instructions that have been reviewed with patient as well as indications for ED re-evaluation and additional outpatient follow up Patient signed out to Dr. Lal for further management [[id number]] (Lukasz) Patient received in sign out from [Arturo]. I have reviewed the clinical course and performed an independent history and physical exam. Patient is resting comfortably in at her baseline, no pressure or discomfort, no shortness of breath. 1105 - discussed with Dr. Case. Agrees with ongoing plan to transfer for cath to facility with available bed. Given ongoing HR in the 50s will hold BB and CCB 1300 - [facility] supervisor counseling and guidance request we speak with Dr. Herman (Cardiology at [facility]) and hospitalist 1305 - Virgil agrees with plan. Given her NPO status he will try to get her over today for hopeful cath before 1600. Call out to hospitalist. 1323 - discussed with cardiology at [place], review of notes, the discussion suggest that she was deemed high-risk given a large infrarenal AAA and had previously been evaluated by Cardiology at [facility] and was told that the risk was too high and at that time she elected to stand down and not pursue PCI. 1332 - discussed the risk/benefits with patient and she states that she is not interested in a large vascular surgery if needed and would therefore prefer not to pursue heart cath at this time. Dr. woodard-received sign-out from Dr. Lal awaiting to hear back from Zoe ortiz. I did hear back from Dr. Sarmiento. Reports that there continues to be baseline severe three-vessel gulkana coronary disease recommended medical therapy if she is asymptomatic. She has continued to be chest pain-free for the last 24 hours. He agrees to have outpatient follow-up. If she becomes symptomatic he is happy to have her transferred. Dr. Roe accepts patient. <Leland Lal DO - Last Filed: 05/17/23 06:32> Lab Data Labs: Lab Results 05/15/23 05/15/23 05/15/23 Range/Units 19:50 19:50 19:50 WBC 7.3 (4.5-11.0) X10^3/uL RBC 4.53 (4.0-5.2) X10^6/uL Hgb 12.8 (12.0-16.0) g/dL Hct 38.5 (36-46) % MCV 84.9 (80-100) fL MCH 28.3 (26-34) PG MCHC 33.4 (30-36) % RDW 15.4 H (11.6-14.8) % Plt Count 195 (150-400) X10^3/uL Neut % (Auto) 67.9 (50-75) % Lymph % (Auto) 18.9 L (25-40) % [place] % (Auto) 6.4 (3-14) % Eos % (Auto) 4.5 H (2-4) % Baso % (Auto) 2.3 H (0-2) % Neut # (Auto) 5000 (7418-7325) /uL Lymph # (Auto) 1400 (8340-0484) /uL [place] # (Auto) 500 (0-900) /uL Eos # (Auto) 300 (0-450) /uL Baso # (Auto) 200 H (0-100) /uL PT 12.2 (10.1-12.7) SECONDS INR 1.1 (0.9-1.3) APTT 29 (26-36) SECONDS Sodium 138 (137-145) mmol/L Potassium 3.5 (3.4-5.1) mmol/L Chloride 99 (98-107) mmol/L Carbon Dioxide 31 (22-32) mmol/L BUN 30 H (7-17) mg/dL Creatinine 1.01 (0.52-1.04) mg/dL Estimated GFR 54 L (>60) mL/min BUN/Creatinine Ratio 29.7 H (6-22) Glucose 150 H (80-110) mg/dL Calcium 9.6 (8.4-10.2) mg/dL Magnesium 2.0 (1.6-2.3) mg/dL Total Bilirubin 0.5 (0.2-1.3) mg/dL AST 46 H (14-36) IU/L ALT 20 (<35) IU/L Alkaline Phosphatase 63 (38-126) U/L Total Creatine Kinase 94 (30-135) U/L Troponin I 1.950 H* (0.01-0.034) ng/mL Total Protein 6.8 (6.3-8.2) g/dL Albumin 3.9 (3.5-5.0) g/dL Globulin 2.9 (1.7-4.1) g/dL Albumin/Globulin Ratio 1.3 (1.0-2.8) Lipase 83 (23-300) U/L SARS-CoV-2 (PCR) (Negative) 05/15/23 05/15/23 05/16/23 Range/Units 21:57 22:00 03:00 WBC (4.5-11.0) X10^3/uL RBC (4.0-5.2) X10^6/uL Hgb (12.0-16.0) g/dL Hct (36-46) % MCV (80-100) fL MCH (26-34) PG MCHC (30-36) % RDW (11.6-14.8) % Plt Count (150-400) X10^3/uL Neut % (Auto) (50-75) % Lymph % (Auto) (25-40) % [place] % (Auto) (3-14) % Eos % (Auto) (2-4) % Baso % (Auto) (0-2) % Neut # (Auto) (0618-1673) /uL Lymph # (Auto) (5311-6074) /uL [place] # (Auto) (0-900) /uL Eos # (Auto) (0-450) /uL Baso # (Auto) (0-100) /uL PT (10.1-12.7) SECONDS INR (0.9-1.3) APTT 118 H* D (26-36) SECONDS Sodium (137-145) mmol/L Potassium (3.4-5.1) mmol/L Chloride (98-107) mmol/L Carbon Dioxide (22-32) mmol/L BUN (7-17) mg/dL Creatinine (0.52-1.04) mg/dL Estimated GFR (>60) mL/min BUN/Creatinine Ratio (6-22) Glucose (80-110) mg/dL Calcium (8.4-10.2) mg/dL Magnesium (1.6-2.3) mg/dL Total Bilirubin (0.2-1.3) mg/dL AST (14-36) IU/L ALT (<35) IU/L Alkaline Phosphatase (38-126) U/L Total Creatine Kinase (30-135) U/L Troponin I 1.990 H* (0.01-0.034) ng/mL Total Protein (6.3-8.2) g/dL Albumin (3.5-5.0) g/dL Globulin (1.7-4.1) g/dL Albumin/Globulin Ratio (1.0-2.8) Lipase (23-300) U/L SARS-CoV-2 (PCR) Negative (Negative) 05/16/23 05/16/23 05/16/23 Range/Units 06:12 06:12 09:25 WBC 7.1 (4.5-11.0) X10^3/uL RBC 4.63 (4.0-5.2) X10^6/uL Hgb 13.0 (12.0-16.0) g/dL Hct 38.9 (36-46) % MCV 84.0 (80-100) fL MCH 28.1 (26-34) PG MCHC 33.5 (30-36) % RDW 15.5 H (11.6-14.8) % Plt Count 182 (150-400) X10^3/uL Neut % (Auto) 61.4 (50-75) % Lymph % (Auto) 24.7 L (25-40) % [place]ern % (Auto) 7.1 (3-14) % Eos % (Auto) 5.4 H (2-4) % Baso % (Auto) 1.4 (0-2) % Neut # (Auto) 4300 (4786-9639) /uL Lymph # (Auto) 1700 (6035-6500) /uL [place] # (Auto) 500 (0-900) /uL Eos # (Auto) 400 (0-450) /uL Baso # (Auto) 100 (0-100) /uL PT (10.1-12.7) SECONDS INR (0.9-1.3) APTT 85 H* D (26-36) SECONDS Sodium 139 (137-145) mmol/L Potassium 3.3 L (3.4-5.1) mmol/L Chloride 103 (98-107) mmol/L Carbon Dioxide 28 (22-32) mmol/L BUN 22 H (7-17) mg/dL Creatinine 0.90 (0.52-1.04) mg/dL Estimated GFR > 60 (>60) mL/min BUN/Creatinine Ratio 24.4 H (6-22) Glucose 112 H (80-110) mg/dL Calcium 9.2 (8.4-10.2) mg/dL Magnesium (1.6-2.3) mg/dL Total Bilirubin 0.5 (0.2-1.3) mg/dL AST 36 (14-36) IU/L ALT 19 (<35) IU/L Alkaline Phosphatase 66 (38-126) U/L Total Creatine Kinase 53 (30-135) U/L Troponin I 1.460 H* (0.01-0.034) ng/mL Total Protein 6.1 L (6.3-8.2) g/dL Albumin 3.4 L (3.5-5.0) g/dL Globulin 2.7 (1.7-4.1) g/dL Albumin/Globulin Ratio 1.3 (1.0-2.8) Lipase (23-300) U/L SARS-CoV-2 (PCR) (Negative) 05/16/23 Range/Units 16:38 WBC (4.5-11.0) X10^3/uL RBC (4.0-5.2) X10^6/uL Hgb (12.0-16.0) g/dL Hct (36-46) % MCV (80-100) fL MCH (26-34) PG MCHC (30-36) % RDW (11.6-14.8) % Plt Count (150-400) X10^3/uL Neut % (Auto) (50-75) % Lymph % (Auto) (25-40) % [place] % (Auto) (3-14) % Eos % (Auto) (2-4) % Baso % (Auto) (0-2) % Neut # (Auto) (5611-0719) /uL Lymph # (Auto) (8620-3516) /uL [place] # (Auto) (0-900) /uL Eos # (Auto) (0-450) /uL Baso # (Auto) (0-100) /uL PT (10.1-12.7) SECONDS INR (0.9-1.3) APTT 58 H D (26-36) SECONDS Sodium (137-145) mmol/L Potassium (3.4-5.1) mmol/L Chloride (98-107) mmol/L Carbon Dioxide (22-32) mmol/L BUN (7-17) mg/dL Creatinine (0.52-1.04) mg/dL Estimated GFR (>60) mL/min BUN/Creatinine Ratio (6-22) Glucose (80-110) mg/dL Calcium (8.4-10.2) mg/dL Magnesium (1.6-2.3) mg/dL Total Bilirubin (0.2-1.3) mg/dL AST (14-36) IU/L ALT (<35) IU/L Alkaline Phosphatase (38-126) U/L Total Creatine Kinase (30-135) U/L Troponin I (0.01-0.034) ng/mL Total Protein (6.3-8.2) g/dL Albumin (3.5-5.0) g/dL Globulin (1.7-4.1) g/dL Albumin/Globulin Ratio (1.0-2.8) Lipase (23-300) U/L SARS-CoV-2 (PCR) (Negative) MDM Narrative Medical decision making narrative: Patient 87-year-old female who presents today with chest pain pressure nausea and diaphoresis. History of coronary artery disease with three-vessel CABG. Is found to have elevated troponin at 1.9. She received aspirin and nitro in the ED and has been chest pain-free in the ED. MDM CC: Chest Pain Complicating co-morbidities: CHF hypertension coronary artery disease with CABG Corroborating data: [ ] Data collected from: [ ] Medical records reviewed: [ ] Differential considered: STEMI, NSTEMI, ACS Exam documented above, pertinent findings include: Positive troponin Lab Test results independently reviewed as above. Pertinent findings: Independently reviewed EKG as above: No STEMI Imaging studies independently reviewed: Chest x-ray negative Consultations: Dr. Short cardiology agrees with happened drip and transfer for cardiac catheterizations Treatments: Heparin. Received aspirin and nitro prior to ED Re-evaluations: Continues to be chest pain-free although heart started to slow down. Discussion: Patient is stable and has been chest pain-free in the ED. She has no obvious ST elevation but does have some worsening depression in 1 and aVL. She is a persistent right bundle-branch which is also new. She is elevated troponin at 1.9. Critical bed shortage patient is on multiple this waiting to be transferred. She is stable at this time. Echocardiogram is ordered for morning. Diagnosis: [ ] Disposition: see below, along with detailed discharge instructions that have been reviewed with patient as well as indications for ED re-evaluation and additional outpatient follow up Patient signed out to Dr. Lal for further management [0700] (Lukasz) Patient received in sign out from [Arturo]. I have reviewed the clinical course and performed an independent history and physical exam. Patient is resting comfortably in at her baseline, no pressure or discomfort, no shortness of breath. 1105 - discussed with Dr. Case. Agrees with ongoing plan to transfer for cath to facility with available bed. Given ongoing HR in the 50s will hold BB and CCB 1300 - [facility] supervisor counseling and guidance request we speak with Dr. Herman (Cardiology at [facility]) and hospitalist 1305 - Virgil agrees with plan. Given her NPO status he will try to get her over today for hopeful cath before 1600. Call out to hospitalist. 1323 - discussed with cardiology at [place], review of notes, the discussion suggest that she was deemed high-risk given a large infrarenal AAA and had previously been evaluated by Cardiology at [facility] and was told that the risk was too high and at that time she elected to stand down and not pursue PCI. 1332 - discussed the risk/benefits with patient and she states that she is not interested in a large vascular surgery if needed and would therefore prefer not to pursue heart cath at this time. Discharge Plan Departure Patient Disposition: Admitted As Inpatient Clinical Impression: Acute non-ST elevation myocardial infarction (NSTEMI) Admit Date/Time: 05/16/23 21:39 Admit Provider: Walker Roe
[2023-05-15] MEDS: HEPARIN 5,000 UNIT/ML VIAL 4000 UNIT IV (21:10)
[2023-05-15] MEDS: HEPARIN DRIP 25,000 UNIT/500 ML IV.SOLN 13.063 UNIT IV (21:15)
[2023-05-15 22:59] LABS: COVID19 -Nasal RAPID Negative (Negative)
[2023-05-16] VITALS (68 sets, daily range): BP systolic 132–200; BP diastolic 62–97; PULSE 41–82; RESP 16–41; TEMP 37.1; O2SAT 89–100; BMI 24.2
--- NOTE | 2023-05-16 01:31 | DI.ECHO.S_ITS ---
[facility] +---------+ : : [address] [place] : : : : [id number] : : : : Phone: [phone]+ Echocardiogram Report + + :Name: ELYSIA LACKEY Study Date: 05/16/2023 Height: 59 in : :[facility] ReadingLocation: Weight: 120 lb : : Gender: Female BSA: 1.5 m2 : :: 1935 Age: 87 yrs BP: 154/80 mmHg: :Reason For Study: Elevated Troponin : :Ordering Physician: SHERRY, : :LANEY Performed By: Janet Morales : :Referring: LANEY POWELL : + + Interpretation Summary The ejection fraction is estimated to be 30-35%. [place], inferior wall are hypokinetic. There is global hypokinesis noted as well. Increased echogenicity is suggestive of infiltrative procedd. Consider imaging for Amyloid. Also repeat limited echo with strain imaging. Right ventricular systolic function is mildly reduced. There is moderate mitral regurgitation. Compared to the prior echo study, there has been an increase in the severity of mitral regurgitation. The peak aortic velocity is 3.28 m/sec. The aortic valve mean gradient is 21 mmHg. There is mild to moderate aortic stenosis. Compared to the prior echo study, there has been an increase in the severity of aortic stenosis. There is moderate aortic regurgitation. The right ventricular systolic pressure is estimated to be at least 30 mmHg based on an estimated right atrial pressure of 3 mm Hg. Procedure: A two-dimensional transthoracic echocardiogram with color flow and Doppler was performed. The study quality was technically adequate. Comparison is made with the echocardiogram of 05/04/2022. The patient was in a bradycardic rhythm during the exam. Left Ventricle: The left ventricle is mildly dilated. The ejection fraction is estimated to be 30-35%. [place], inferior wall are hypokinetic. There is global hypokinesis noted as well. Increased echogenicity is suggestive of infiltrative procedd. Consider imaging for Amyloid. Also repeat limited echo with strain imaging. Diastolic parameters suggest a relaxation abnormality of the left ventricle, consistent with probable normal filling pressures. Right Ventricle: The right ventricle is normal size. Right ventricular systolic function is mildly reduced. Atria: The left atrium is severely dilated. The right atrium is mildly dilated. There is no Doppler evidence for an interatrial shunt. Mitral Valve: The mitral valve leaflets appear moderately thickened, but open well. There is no mitral valve stenosis. There is moderate mitral regurgitation. Compared to the prior echo study, there has been an increase in the severity of mitral regurgitation. Aortic Valve: The aortic valve is trileaflet. The aortic valve is moderately calcified. There is mild to moderate aortic stenosis. The peak aortic velocity is 3.28 m/sec. The aortic valve mean gradient is 21 mmHg. Compared to the prior echo study, there has been an increase in the severity of aortic stenosis. There is moderate aortic regurgitation. Tricuspid Valve: The tricuspid valve is normal. There is no tricuspid stenosis. There is trace tricuspid regurgitation. The right ventricular systolic pressure is estimated to be at least 30 mmHg based on an estimated right atrial pressure of 3 mm Hg. Pulmonic Valve: The pulmonic valve leaflets are thin and pliable; valve motion is normal. There is no pulmonic valvular stenosis. There is mild pulmonic regurgitation. Great Vessels: The aortic root is normal size. The ascending aorta is at the upper limits of normal in size. The pulmonary artery is normal size. The IVC is of normal diameter and collapses greater than 50% with a sniff. This suggests a low right atrial pressure of 3 mm Hg. Pericardium/ Pleura There is no pericardial effusion. There is no pleural effusion. MMode/2D Measurements & Calculations LVIDd: 5.4 cm LVOT diam: 1.9 cm LVIDs: 4.3 cm Ao root diam: 3.3 cm FS: 20.4 % asc Aorta Diam: 3.7 cm EPSS: 1.4 cm IVSd: 1.1 cm LVPWd: 1.0 cm LV gonzales. diameter/BSA (cm/m^2): 3.6 LV sys. diameter/BSA (cm/m^2): 2.9 LA A2 area: 23.6 cm2 RA long axis: 5.1 cm LA A4 area: 21.0 cm2 RA area: 13.6 cm2 LA length (vol): 5.3 cm RA vol: 30.8 ml LA vol: 78.9 ml RA : 20.7 ml/m2 LA vol index: 53.2 ml/m2 RVD1 (basal): 3.4 cm LVLs ap4: 7.1 cm LVLd ap2: 7.9 cm TAPSE_phl: 1.6 cm LVLs ap2: 7.4 cm Doppler Measurements & Calculations Ao V2 max: 315.2 cm/sec LVOT Max Gurpreet: 130.8 cm/sec Ao V2 mean: 200.8 cm/sec LV V1 max P.9 mmHg Ao max P.0 mmHg LV V1 VTI: 28.1 cm Ao mean P.8 mmHg KENNY(I,D): 1.0 cm2 Ao V2 VTI: 76.9 cm KENNY(V,D): 1.2 cm2 sev ratio: 0.37 KENNY indexed to BSA (cm^2/m^2): 0.70 MV E max gurpreet: 102.0 cm/sec TR max gurpreet: 259.5 cm/sec MV A max gurpreet: 74.1 cm/sec TR max P.9 mmHg MV E/A: 1.4 PA V2 max: 81.9 cm/sec MV dec time: 0.25 sec PA V2 mean: 53.3 cm/sec MVA(VTI): 2.0 cm2 PA mean P.0 mmHg PA pr(Accel): 40.8 mmHg MV V2 mean: 60.5 cm/sec SV(LVOT): 79.6 ml MV mean P.7 mmHg MV V2 VTI: 40.1 cm AV VR_phl: 0.42 KENNY(VTI)/BSA_phl: 0.70 Reading Physician:09:23 AM
--- NOTE | 2023-05-16 03:27 | PC.NURSE ---
Pt assist to bedside commode. Pt is able to self transfer to commode with standby assist. Pt reports no changes to the chest pressure that she has been feeling since arrival but reports feeling 'overall well. Pt becomes SOB when exerting herself but recovers without assistance after 1 minute of rest. Pt updated on plan of care and pt is agreeable to plan. Pt is A&Ox4 and proceeds to play [employer] on her phone.
[2023-05-16 03:31] LABS: PTT Partial Thromboplastin Tim 118 SECONDS (26-36)
--- NOTE | 2023-05-16 03:49 | PC.NURSE ---
0300 Lab called with a critical lab value of PTT 118. Per [facility] policy, with a value of 118, the heparin drip is to remain unchanged for the first 12hrs of aracelis initiation of thrombolytic therapy unless the PTT is over 150 seconds.
[2023-05-16 06:29] LABS: Add Manual Diff / Slide Review NO; Basophils Absolute Auto 100 /uL (0-100); Basophils Percent Auto 1.4 % (0-2); Eosinophils Absolute Auto 400 /uL (0-450); Eosinophils Percent Auto 5.4 % (2-4); Hematocrit 38.9 % (36-46); Lymphocytes Absolute Auto 1700 /uL (1100-4500); Lymphocytes Percent Auto 24.7 % (25-40); Mean Corpuscular HGB Conc 33.5 % (30-36); Mean Corpuscular Hemoglobin 28.1 PG (26-34); Monocytes Absolute Auto 500 /uL (0-900); Monocytes Percent Auto 7.1 % (3-14); Neutrophils Absolute Auto 4300 /uL (1500-7000); Neutrophils Percent Auto 61.4 % (50-75); Platelet Count 182 X10^3/uL (150-400); Red Blood Cell Count 4.63 X10^6/uL (4.0-5.2); Red Cell Distribution Width 15.5 % (11.6-14.8); White Blood Cell Count 7.1 X10^3/uL (4.5-11.0)
[2023-05-16 06:39] LABS: Alanine Aminotransferase 19 IU/L (<35); Albumin 3.4 g/dL (3.5-5.0); Albumin Globulin Ratio 1.3 (1.0-2.8); Alkaline Phosphatase 66 U/L (38-126); Aspartate Aminotransferase 36 IU/L (14-36); BUN Creatinine Ratio 24.4 (6-22); Bilirubin Total 0.5 mg/dL (0.2-1.3); Blood Urea Nitrogen 22 mg/dL (7-17); Calcium 9.2 mg/dL (8.4-10.2); Carbon Dioxide 28 mmol/L (22-32); Chloride 103 mmol/L (98-107); Creatine Kinase 53 U/L (30-135); Estimated Glomerular Filt Rate > 60 mL/min (>60); Globulin 2.7 g/dL (1.7-4.1); Glucose 112 mg/dL (80-110); HEMOLYSIS < 15 (0-50); Potassium 3.3 mmol/L (3.4-5.1); Sodium 139 mmol/L (137-145); Total Protein 6.1 g/dL (6.3-8.2)
--- NOTE | 2023-05-16 07:21 | PC.NURSE ---
Report given to day shift staff. Pt is A&Ox4 and assisted to the commode.
[2023-05-16 10:30] LABS: PTT Partial Thromboplastin Tim 85 SECONDS (26-36)
[2023-05-16] MEDS: ATORVASTATIN 20 MG TABLET 40 MG PO (12:53)
[2023-05-16] MEDS: TORSEMIDE 10 MG TABLET 20 MG PO (12:53)
[2023-05-16] MEDS: lisinopriL 20 MG TABLET PO (12:53)
[2023-05-16] MEDS: CLOPIDOGREL 75 MG TABLET PO (13:53)
[2023-05-16 17:07] LABS: PTT Partial Thromboplastin Tim 58 SECONDS (26-36)
--- NOTE | 2023-05-16 18:44 | PC.NURSE ---
patient has been on 2L NC during entire day shift, not logged into [facility] records. this is her home rate of oxygen.
[2023-05-16 23:05] LABS: PTT Partial Thromboplastin Tim 68 SECONDS (26-36)
[2023-05-17] VITALS (8 sets, daily range): BP systolic 126–161; BP diastolic 51–69; PULSE 68–92; RESP 16–20; TEMP 36.1–37; O2SAT 95–100
[2023-05-17 05:57] LABS: Add Manual Diff / Slide Review NO; Basophils Absolute Auto 100 /uL (0-100); Basophils Percent Auto 1.4 % (0-2); Eosinophils Absolute Auto 400 /uL (0-450); Eosinophils Percent Auto 6.8 % (2-4); Hematocrit 41.7 % (36-46); Hemoglobin 13.9 g/dL (12.0-16.0); Lymphocytes Absolute Auto 1600 /uL (1100-4500); Lymphocytes Percent Auto 24.1 % (25-40); Mean Corpuscular HGB Conc 33.2 % (30-36); Mean Corpuscular Hemoglobin 28.1 PG (26-34); Mean Corpuscular Volume 84.6 fL (80-100); Monocytes Absolute Auto 600 /uL (0-900); Monocytes Percent Auto 8.5 % (3-14); Neutrophils Absolute Auto 3800 /uL (1500-7000); Neutrophils Percent Auto 59.2 % (50-75); Platelet Count 181 X10^3/uL (150-400); Red Blood Cell Count 4.93 X10^6/uL (4.0-5.2); Red Cell Distribution Width 15.7 % (11.6-14.8); White Blood Cell Count 6.5 X10^3/uL (4.5-11.0)
[2023-05-17 06:05] LABS: BUN Creatinine Ratio 21.3 (6-22); Blood Urea Nitrogen 20 mg/dL (7-17); Calcium 9.9 mg/dL (8.4-10.2); Carbon Dioxide 32 mmol/L (22-32); Chloride 101 mmol/L (98-107); Estimated Glomerular Filt Rate 59 mL/min (>60); Glucose 105 mg/dL (80-110); HEMOLYSIS < 15 (0-50); Potassium 3.6 mmol/L (3.4-5.1); Sodium 137 mmol/L (137-145)
[2023-05-17 06:36] LABS: INR 1.1 (0.9-1.3); Prothrombin Time 12.7 SECONDS (10.1-12.7)
--- NOTE | 2023-05-17 07:19 | PM.HP.1 ---
History of Present Illness History of Present Illness Date Patient Seen: 05/17/23 Chief complaint: Chest Discomfort Narrative: 87 y/o with CAD, s/p CABG, followed by cardiology, presented to ED with nausea, sweating and pressiure in the chest. Subsequently her syumptoms resolved. Diagnosed with NSTEMI, started on heparin drip, after consultatioon with patient's relationship executive. [facility] Medical History (Updated 05/17/23 @ 07:22 by Walker Roe MD) Aneurysm of infrarenal abdominal aorta Bilateral carpal tunnel syndrome CAD (coronary artery disease) COPD (chronic obstructive pulmonary disease) with emphysema Elevated TSH HTN (hypertension) Hyperlipidemia Unstable angina Valvular heart disease Surgical History H/O hysterectomy with oophorectomy H/O three vessel coronary artery bypass Hx of heart artery stent Status post cholecystectomy Family History Father Lung cancer Mother COPD (chronic obstructive pulmonary disease) Social History household members: family, children and friend(s) Smoking Status: Former smoker alcohol intake: never Meds Home Medications and Allergies Home Medications Medication Instructions Recorded Confirmed Type aspirin 81 mg tablet,delayed 81 mg PO QDAY ##0 07/11/17 05/16/23 History release multivitamin 1 tab PO DAILY 07/07/18 05/16/23 History nitroglycerin 0.4 mg sublingual 0.4 mg sublingual Q5-15M PRN Chest 07/07/18 05/16/23 History tablet (Nitrostat) Pain omega 1-fwo-zia-fish oil 1,000 mg 1,000 mg PO DAILY 07/07/18 05/16/23 History (120 mg-180 mg) capsule (Fish Oil) vitamin E 268 mg (400 unit) capsule 400 unit PO DAILY 07/07/18 05/16/23 History atorvastatin 20 mg tablet (Lipitor) 40 mg PO QPM 05/04/22 05/16/23 History diltiazem HCl 120 mg 120 mg PO QAM 05/04/22 05/16/23 History capsule,extended release 24 hr (Cartia XT) isosorbide mononitrate 120 mg 120 mg PO QAM 05/04/22 05/16/23 History tablet,extended release 24 hr levothyroxine 88 mcg tablet 88 mcg PO QAM 05/04/22 05/16/23 History lisinopril 40 mg tablet 20 mg PO QAM 05/04/22 05/16/23 History albuterol 90 mcg/actuation aerosol 90 mcg inhalation Q4-6H PRN 05/20/22 05/16/23 History inhaler Shortness Of Breath clopidogrel 75 mg tablet 75 mg PO QAM 05/20/22 05/16/23 History 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 10 mg tablet 10 mg PO TID PRN Muscle Spasm 05/20/22 05/16/23 History ipratropium 0.5 mg-albuterol 3 mg ml inhalation PRN Shortness Of 05/20/22 04/29/23 History (2.5 mg base)/3 mL nebulization Breath Or Wheezing soln metoprolol succinate 25 mg 25 mg PO DAILY 05/20/22 05/16/23 History tablet,extended release 24 hr torsemide 20 mg tablet 40 mg PO DAILY 04/29/23 05/16/23 History fluticasone 500 mcg-salmeterol 50 1 ea inhalation BID 05/16/23 05/16/23 History mcg/dose blistr powdr for inhalation (Advair Diskus) prednisone 20 mg tablet 20 mg PO DAILY PRN Shortness Of 05/16/23 05/16/23 History Breath Or Wheezing Allergies Allergy/AdvReac Type Severity Reaction Status Date / Time amlodipine Allergy Intermediate Verified 05/16/23 09:28 doxazosin [From Cardura] Allergy Intermediate Rash Verified 05/16/23 09:28 doxycycline Allergy Intermediate Rash Verified 05/16/23 09:28 gemfibrozil Allergy Intermediate Rash Verified 05/16/23 09:28 levofloxacin Allergy Intermediate Rash Verified 05/16/23 09:28 losartan Allergy Intermediate Rash Verified 05/16/23 09:28 montelukast [From Singulair] Allergy Intermediate Difficulty Verified 05/16/23 09:28 Breathing Sulfa (Sulfonamide Allergy Intermediate rash Verified 05/16/23 09:28 Antibiotics) sulfamethoxazole Allergy Intermediate Rash Verified 05/16/23 09:28 [From Bactrim] trimethoprim [From Bactrim] Allergy Intermediate Rash Verified 05/16/23 09:28 carvedilol Allergy Mild Rash Verified 05/16/23 09:28 acarbose AdvReac Intermediate Abdominal Verified 05/16/23 09:28 Pain chlorthalidone AdvReac Intermediate Redness of Verified 05/16/23 09:28 Skin metoprolol AdvReac Intermediate Verified 05/16/23 09:28 nifedipine AdvReac Intermediate Chills Verified 05/16/23 09:28 budesonide [From Symbicort] AdvReac Mild Anxiety Verified 05/16/23 09:28 choline fenofibrate AdvReac Mild Gastrointestinal Verified 05/16/23 09:28 [From Trilipix] Upset formoterol [From Symbicort] AdvReac Mild Anxiety Verified 05/16/23 09:28 Review of Systems Constitutional Comments: generalized weakness Cardiovascular Comments: resolved pressure Respiratory Comments: chronically short of breath, at baseline Gastrointestinal Comments: w/o complaints Genitourinary Comments: w/o dysuria Exam Vital Signs (past 8 hours): - 05/17/23 05:26 Temperature 98.6 F Pulse Rate 68 Respiratory Rate 16 Blood Pressure 153/69 H Pulse Oximetry 96 Oxygen Delivery Method Room Air Oxygen Flow Rate 2 Const Other: laying in bed in nmo distress Eyes Other: pupils equal, round, reactive, EOMI Resp Other: decreased breath sounds b/l, not wheezy Cardio Other: RRR GI Other: not distended Skin Other: no rashes Neuro Other: w/o deficits Extrem Other: w/o swelling Psych Other: lucid Objective Labs 05/17/23 05:10 05/17/23 05:10 Labs: Laboratory Results - last 24 hr 05/16/23 05/16/23 05/16/23 09:25 16:38 22:50 WBC RBC Hgb Hct MCV MCH MCHC RDW Plt Count Neut % (Auto) Lymph % (Auto) [place] % (Auto) Eos % (Auto) Baso % (Auto) Neut # (Auto) Lymph # (Auto) [place] # (Auto) Eos # (Auto) Baso # (Auto) PT INR APTT 85 H* D 58 H D 68 H D Sodium Potassium Chloride Carbon Dioxide BUN Creatinine Estimated GFR BUN/Creatinine Ratio Glucose Calcium 05/17/23 05/17/23 05/17/23 05:10 05:10 06:20 WBC 6.5 RBC 4.93 Hgb 13.9 Hct 41.7 MCV 84.6 MCH 28.1 MCHC 33.2 RDW 15.7 H Plt Count 181 Neut % (Auto) 59.2 Lymph % (Auto) 24.1 L [place] % (Auto) 8.5 Eos % (Auto) 6.8 H Baso % (Auto) 1.4 Neut # (Auto) 3800 Lymph # (Auto) 1600 [place] # (Auto) 600 Eos # (Auto) 400 Baso # (Auto) 100 PT 12.7 INR 1.1 APTT Sodium 137 Potassium 3.6 Chloride 101 Carbon Dioxide 32 BUN 20 H Creatinine 0.94 Estimated GFR 59 L BUN/Creatinine Ratio 21.3 Glucose 105 Calcium 9.9 Assessment & Plan Assessment and plan (1) Acute non-ST elevation myocardial infarction (NSTEMI): Status: Acute Plan: Discussed between ED attending and patient's relationship executive Stable vitals, w/o clinical signs of CHF - heparin drip, cardiac protocol (2) CAD (coronary artery disease): Status: Acute Plan: ASA, Plavix, Imdur, statin, BB (3) COPD (chronic obstructive pulmonary disease): Qualifiers: COPD type: unspecified COPD Qualified Code(s): J44.9 - Chronic obstructive pulmonary disease, unspecified Status: Acute Plan: Albuterol, Pulmicort (4) Chronic respiratory failure with hypoxia: Status: Acute Plan: On oxygen since Covid infection 2 years ago. (5) HTN (hypertension): Status: Acute Plan: BB, CCB, Lisinopril, Torsemide (6) Hyperlipidemia: Status: Acute Plan: Mixed, statin, fish oil
[2023-05-17] MEDS: LEVOTHYROXINE 88 MCG TABLET PO (07:20)
[2023-05-17 08:15] LABS: PTT Partial Thromboplastin Tim 70 SECONDS (26-36)
[2023-05-17] MEDS: ALBUTEROL 2.5 MG/3 ML NEB (ADULT) INH ×3 (08:31→21:03)
[2023-05-17] MEDS: BUDESONIDE 0.5 MG/2 ML NEB INH ×2 (08:31→21:03)
[2023-05-17] MEDS: ISOSORBIDE MONONITRATE ER 30 MG TABLET 120 MG PO (09:23)
[2023-05-17] MEDS: METOPROLOL ER 25 MG TABLET PO (09:24)
[2023-05-17] MEDS: TORSEMIDE 10 MG TABLET 40 MG PO (09:24)
[2023-05-17] MEDS: dilTIAZem CD 120 MG CAP PO (09:24)
[2023-05-17] MEDS: CLOPIDOGREL 75 MG TABLET PO (09:24)
[2023-05-17] MEDS: FISH OIL 1,000 MG CAPSULE 1000 MG PO (09:24)
[2023-05-17] MEDS: ASPIRIN EC 81 MG TABLET PO (09:25)
[2023-05-17] MEDS: lisinopriL 20 MG TABLET PO (09:25)
[2023-05-17] MEDS: MULTIVITAMIN 1 TABLET 1 TAB PO (09:25)
--- NOTE | 2023-05-17 10:22 | CM.DANOTE ---
DCP: Chart review for case, met with patient at bedside, they agree to case management assessment. Completed DCP assessment based on information available. Patient is a 87 year old admitted for NSTEMI, now on heparin gtt. Unable to progress to cardiac intervention secondary to large AAA. 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 States she plans to start pulmonary PT here at [facility]. Lives with blind son Herminio in [facility], and assists him with driving, home chores but he is otherwise independent. She and Herminio are also supported by son Bunny who lives in [place]. PCP: Catie Estrada, seen 1 week ago Payer: [employer] DME: [employer], walks, drives independently DCP: Home with supportive family and existing home 02 via [employer] with own portable concentrator and her own 02 sat monitor. Tiffanie Gordon RN, CM Discharge Planning/Care Management Advanced directive, confirm from FAMILY Start: 05/16/23 22:52 Freq: Q24H Status: Complete Protocol: Document 05/16/23 22:52 AGW (Rec: 05/17/23 02:40 AGW [id number]) Advance Directive, confirm on record Time 02:40 Person contacted chart Copy received Yes CM Discharge Assessment Start: 05/17/23 10:11 Freq: Status: Active Protocol: Document 05/17/23 10:11 BQ (Rec: 05/17/23 10:14 BQ [id number]) Discharge Planning Assessment Assigned Automatic Nailing Machine Operator Tiffanie Gordon RN, CM Advance Directives? Yes: Polst Advance Directives on File No History Provided By Patient,Medical Record Has Patient been admitted in last 30 No days? Prior Living Arrangements House Household Members family,children,friend(s) Type of transporation used prior to Drives own vehicle admit Independent with ADL's Yes Is patient alert and oriented? Yes Caregiver for Another Yes: Son is blind DME Already Rented / Owned Oxygen,Other Comment O2 at night Vendor: [employer] Has own portable concentrator at bedside. Monitors own 02 saturation. Barriers to Discharge No Discharge Plan Home Transportation Arrangement Likely son Bunny who lives in [place] can transport home, possibly mormonism friend or may need transportation assistance as Bunny is out of town for work Referrals Initiated None needed Additional Comment Ambulatory independently to bathroom, instructed to use call perkins for safety. Whiteboard Updated in Patient Room with Yes name and ext. # of Automatic Nailing Machine Operator Review Status In Process Next Review Type Continued Stay Review
--- NOTE | 2023-05-17 15:33 | P.HP_ITS ---
History of Present Illness History of Present Illness Date Patient Seen: 05/17/23 Chief complaint: Chest Discomfort Narrative: 87 y/o with CAD, s/p CABG, followed by cardiology, presented to ED with nausea, sweating and pressiure in the chest. Subsequently her syumptoms resolved. 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 [facility] Medical History (Updated 05/17/23 @ 07:22 by Walker Roe MD) Aneurysm of infrarenal abdominal aorta Bilateral carpal tunnel syndrome CAD (coronary artery disease) COPD (chronic obstructive pulmonary disease) with emphysema Elevated TSH HTN (hypertension) Hyperlipidemia Unstable angina Valvular heart disease Surgical History H/O hysterectomy with oophorectomy H/O three vessel coronary artery bypass Hx of heart artery stent Status post cholecystectomy Family History Father Lung cancer Mother COPD (chronic obstructive pulmonary disease) Social History household members: family, children and friend(s) Smoking Status: Former smoker alcohol intake: never Meds Home Medications and Allergies Home Medications Medication Instructions Recorded Confirmed Type aspirin 81 mg tablet,delayed 81 mg PO QDAY ##0 07/11/17 05/16/23 History release multivitamin 1 tab PO DAILY 07/07/18 05/16/23 History nitroglycerin 0.4 mg sublingual 0.4 mg sublingual Q5-15M PRN Chest 07/07/18 05/16/23 History tablet (Nitrostat) Pain omega 0-ofy-axl-fish oil 1,000 mg 1,000 mg PO DAILY 07/07/18 05/16/23 History (120 mg-180 mg) capsule (Fish Oil) vitamin E 268 mg (400 unit) capsule 400 unit PO DAILY 07/07/18 05/16/23 History atorvastatin 20 mg tablet (Lipitor) 40 mg PO QPM 05/04/22 05/16/23 History diltiazem HCl 120 mg 120 mg PO QAM 05/04/22 05/16/23 History capsule,extended release 24 hr (Cartia XT) isosorbide mononitrate 120 mg 120 mg PO QAM 05/04/22 05/16/23 History tablet,extended release 24 hr levothyroxine 88 mcg tablet 88 mcg PO QAM 05/04/22 05/16/23 History lisinopril 40 mg tablet 20 mg PO QAM 05/04/22 05/16/23 History albuterol 90 mcg/actuation aerosol 90 mcg inhalation Q4-6H PRN 05/20/22 05/16/23 History inhaler Shortness Of Breath clopidogrel 75 mg tablet 75 mg PO QAM 05/20/22 05/16/23 History 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 10 mg tablet 10 mg PO TID PRN Muscle Spasm 05/20/22 05/16/23 History ipratropium 0.5 mg-albuterol 3 mg ml inhalation PRN Shortness Of 05/20/22 04/29/23 History (2.5 mg base)/3 mL nebulization Breath Or Wheezing soln metoprolol succinate 25 mg 25 mg PO DAILY 05/20/22 05/16/23 History tablet,extended release 24 hr torsemide 20 mg tablet 40 mg PO DAILY 04/29/23 05/16/23 History fluticasone 500 mcg-salmeterol 50 1 ea inhalation BID 05/16/23 05/16/23 History mcg/dose blistr powdr for inhalation (Advair Diskus) prednisone 20 mg tablet 20 mg PO DAILY PRN Shortness Of 05/16/23 05/16/23 History Breath Or Wheezing Allergies Allergy/AdvReac Type Severity Reaction Status Date / Time amlodipine Allergy Intermediate Verified 05/16/23 09:28 doxazosin [From Cardura] Allergy Intermediate Rash Verified 05/16/23 09:28 doxycycline Allergy Intermediate Rash Verified 05/16/23 09:28 gemfibrozil Allergy Intermediate Rash Verified 05/16/23 09:28 levofloxacin Allergy Intermediate Rash Verified 05/16/23 09:28 losartan Allergy Intermediate Rash Verified 05/16/23 09:28 montelukast [From Singulair] Allergy Intermediate Difficulty Verified 05/16/23 09:28 Breathing Sulfa (Sulfonamide Allergy Intermediate rash Verified 05/16/23 09:28 Antibiotics) sulfamethoxazole Allergy Intermediate Rash Verified 05/16/23 09:28 [From Bactrim] trimethoprim [From Bactrim] Allergy Intermediate Rash Verified 05/16/23 09:28 carvedilol Allergy Mild Rash Verified 05/16/23 09:28 acarbose AdvReac Intermediate Abdominal Verified 05/16/23 09:28 Pain chlorthalidone AdvReac Intermediate Redness of Verified 05/16/23 09:28 Skin metoprolol AdvReac Intermediate Verified 05/16/23 09:28 nifedipine AdvReac Intermediate Chills Verified 05/16/23 09:28 budesonide [From Symbicort] AdvReac Mild Anxiety Verified 05/16/23 09:28 choline fenofibrate AdvReac Mild Gastrointestinal Verified 05/16/23 09:28 [From Trilipix] Upset formoterol [From Symbicort] AdvReac Mild Anxiety Verified 05/16/23 09:28 Review of Systems Constitutional Comments: generalized weakness Cardiovascular Comments: resolved pressure Respiratory Comments: chronically short of breath, at baseline Gastrointestinal Comments: w/o complaints Genitourinary Comments: w/o dysuria Exam Vital Signs (past 8 hours): - 05/17/23 08:32 05/17/23 08:00 05/17/23 11:49 Temperature 96.9 F L 97.4 F L Pulse Rate 74 69 80 Respiratory Rate 20 18 20 Blood Pressure 161/65 H 127/69 Pulse Oximetry 100 100 97 Oxygen Delivery Method Nasal Cannula Oxygen Flow Rate 2 2 2 05/17/23 12:37 05/17/23 09:24 Temperature Pulse Rate 79 Respiratory Rate 20 Blood Pressure Pulse Oximetry 95 Oxygen Delivery Method Nasal Cannula Nasal Cannula Oxygen Flow Rate 2 Oxygen Delivery Method Nasal Cannula Oxygen Flow Rate 2 Const Other: laying in bed in no distress Eyes Other: pupils equal, round, reactive, EOMI Resp Other: decreased breath sounds b/l, not wheezy Cardio Other: RRR GI Other: not distended Skin Other: no rashes Neuro Other: w/o deficits Extrem Other: w/o swelling Psych Other: lucid Objective Labs 05/17/23 05:10 05/17/23 05:10 Labs: Laboratory Results - last 24 hr 05/16/23 05/16/23 05/17/23 16:38 22:50 05:10 WBC 6.5 RBC 4.93 Hgb 13.9 Hct 41.7 MCV 84.6 MCH 28.1 MCHC 33.2 RDW 15.7 H Plt Count 181 Neut % (Auto) 59.2 Lymph % (Auto) 24.1 L [place] % (Auto) 8.5 Eos % (Auto) 6.8 H Baso % (Auto) 1.4 Neut # (Auto) 3800 Lymph # (Auto) 1600 [place] # (Auto) 600 Eos # (Auto) 400 Baso # (Auto) 100 PT INR APTT 58 H D 68 H D Sodium Potassium Chloride Carbon Dioxide BUN Creatinine Estimated GFR BUN/Creatinine Ratio Glucose Calcium 05/17/23 05/17/23 05/17/23 05:10 06:20 06:20 WBC RBC Hgb Hct MCV MCH MCHC RDW Plt Count Neut % (Auto) Lymph % (Auto) [place] % (Auto) Eos % (Auto) Baso % (Auto) Neut # (Auto) Lymph # (Auto) [place] # (Auto) Eos # (Auto) Baso # (Auto) PT 12.7 INR 1.1 APTT 70 H Sodium 137 Potassium 3.6 Chloride 101 Carbon Dioxide 32 BUN 20 H Creatinine 0.94 Estimated GFR 59 L BUN/Creatinine Ratio 21.3 Glucose 105 Calcium 9.9 Assessment & Plan Assessment and plan (1) Acute non-ST elevation myocardial infarction (NSTEMI): Status: Acute Plan: Discussed between ED attending and 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 (5) HTN (hypertension): Status: Acute Plan: BB, CCB, Lisinopril, Torsemide (6) Hyperlipidemia: Status: Acute Plan: Mixed, statin, fish oil
[2023-05-17] MEDS: HEPARIN DRIP 25,000 UNIT/500 ML IV.SOLN 11.1 UNIT IV (15:51)
[2023-05-17] MEDS: ATORVASTATIN 20 MG TABLET 40 MG PO (20:10)
[2023-05-18] VITALS (9 sets, daily range): BP systolic 114–137; BP diastolic 52–59; PULSE 44–86; RESP 16–18; TEMP 36.1–36.6; O2SAT 93–99
[2023-05-18] MEDS: LEVOTHYROXINE 88 MCG TABLET PO (05:27)
[2023-05-18] MEDS: BUDESONIDE 0.5 MG/2 ML NEB INH (08:04)
[2023-05-18] MEDS: ALBUTEROL 2.5 MG/3 ML NEB (ADULT) INH ×2 (08:04→13:19)
[2023-05-18] MEDS: ASPIRIN EC 81 MG TABLET PO (09:06)
[2023-05-18] MEDS: METOPROLOL ER 25 MG TABLET PO (09:06)
[2023-05-18] MEDS: lisinopriL 20 MG TABLET PO (09:07)
[2023-05-18] MEDS: MULTIVITAMIN 1 TABLET 1 TAB PO (09:07)
[2023-05-18] MEDS: dilTIAZem CD 120 MG CAP PO (09:07)
[2023-05-18] MEDS: FISH OIL 1,000 MG CAPSULE 1000 MG PO (09:07)
[2023-05-18] MEDS: CLOPIDOGREL 75 MG TABLET PO (09:07)
[2023-05-18] MEDS: TORSEMIDE 10 MG TABLET 40 MG PO (09:07)
[2023-05-18] MEDS: SODIUM CHLORIDE 0.9% FLUSH 10 ML IV (09:08)
[2023-05-18] MEDS: ISOSORBIDE MONONITRATE ER 30 MG TABLET 240 MG PO (09:08)
[2023-05-18 10:30] LABS: Add Manual Diff / Slide Review NO; Basophils Absolute Auto 100 /uL (0-100); Eosinophils Absolute Auto 300 /uL (0-450); Hematocrit 38.9 % (36-46); Lymphocytes Absolute Auto 900 /uL (1100-4500); Lymphocytes Percent Auto 12.7 % (25-40); Mean Corpuscular HGB Conc 33.4 % (30-36); Mean Corpuscular Hemoglobin 28.3 PG (26-34); Mean Corpuscular Volume 84.7 fL (80-100); Monocytes Absolute Auto 600 /uL (0-900); Monocytes Percent Auto 7.8 % (3-14); Neutrophils Absolute Auto 5400 /uL (1500-7000); Neutrophils Percent Auto 74.5 % (50-75); Platelet Count 193 X10^3/uL (150-400); Red Cell Distribution Width 15.5 % (11.6-14.8); White Blood Cell Count 7.2 X10^3/uL (4.5-11.0)
[2023-05-18 11:00] LABS: BUN Creatinine Ratio 19.4 (6-22); Blood Urea Nitrogen 18 mg/dL (7-17); Calcium 10.5 mg/dL (8.4-10.2); Carbon Dioxide 32 mmol/L (22-32); Chloride 97 mmol/L (98-107); Estimated Glomerular Filt Rate 60 mL/min (>60); Glucose 130 mg/dL (80-110); HEMOLYSIS < 15 (0-50); Potassium 3.4 mmol/L (3.4-5.1); Sodium 136 mmol/L (137-145)
[2023-05-18 11:10] LABS: Magnesium 1.8 mg/dL (1.6-2.3)
[2023-05-18 11:23] LABS: Troponin I 0.671 ng/mL (0.01-0.034)
--- NOTE | 2023-05-18 12:45 | CM.DPC ---
DCP Continued: SHEET METAL TECHNICIAN reviewed EMR. Per hospitalist, likely to d/c today. SHEET METAL TECHNICIAN entered room and introduced self and role. Patient sitting up and talkative throughout interaction. SHEET METAL TECHNICIAN gave Pt copy of IMM. Patient confirms d/c plan is home with family. Patient is excited to d/c home. Son to come pick her up and transport her home. Plan: home with family transport with family. No needs at this time. CM team will continue to follow as needed. BLAS Dai
[2023-05-18] MEDS: POTASSIUM CHLORIDE 20 MEQ TAB 40 MEQ PO (13:33)
--- NOTE | 2023-05-18 13:39 | PM.DS.1 ---
History of Present Illness History of Present Illness Date Patient Seen: 05/17/23 Chief complaint: Chest Discomfort Narrative: 87 y/o with CAD, s/p CABG, followed by cardiology, presented to ED with nausea, sweating and pressiure in the chest. Subsequently her syumptoms resolved. 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 Discharge Providers Provider Date of admission: 05/16/23 21:39 Discharge Date: 05/18/23 Primary care physician: EARLINE Mendez Discharge provider: Dell Thomas, Summary Hospital Course Discharge Diagnosis: (1) Acute non-ST elevation myocardial infarction (NSTEMI): ?Status:?Acute ?Plan: Discussed between ED attending and patient's stratigraphy teacher, too high risk for PCI due to large AAA Stable vitals, w/o clinical signs of CHF - heparin drip, cardiac protocol and finished 48 hours Increased home imdur dose for angina (2) CAD (coronary artery disease): ?Status:?Acute ?Plan: ASA, Plavix, Imdur, statin, BB (3) COPD (chronic obstructive pulmonary disease): ?Qualifiers: ?COPD type:?unspecified COPD? Qualified Code(s):?J44.9 - Chronic obstructive pulmonary disease, unspecified ?Status:?Acute ?Plan: Albuterol, Pulmicort (4) Chronic respiratory failure with hypoxia: ?Status:?Acute ?Plan: On oxygen only with exertion since Covid infection 2 years ago. (5) HTN (hypertension): ?Status:?Acute ?Plan: BB, CCB, Lisinopril, Torsemide (6) Hyperlipidemia: ?Status:?Acute ?Plan: Mixed, statin, fish oil Hospital Course: Admitted for STEMI and CP and not a PCI candidate due to large AAA so treated with IV heparin x48 hours alone. Had some mild CP while in the hospital. Home imdur dose raised to treat the angina. She was discharged home back on her regular medications. Exam Vital Signs (past 8 hours): - 05/18/23 08:05 05/18/23 08:00 05/18/23 09:06 Temperature 97.0 F L Pulse Rate 70 86 70 Respiratory Rate 18 16 Blood Pressure 116/52 L 116/52 L Pulse Oximetry 99 93 Oxygen Delivery Method Nasal Cannula Oxygen Flow Rate 2 0 Fraction of Inspired Oxygen 28 05/18/23 09:07 05/18/23 11:06 05/18/23 12:00 Temperature 97.4 F L Pulse Rate 70 72 79 Respiratory Rate 16 Blood Pressure 116/52 L 114/59 L Pulse Oximetry 95 Oxygen Delivery Method Oxygen Flow Rate 0 Fraction of Inspired Oxygen 05/18/23 13:19 Temperature Pulse Rate 44 L Respiratory Rate 18 Blood Pressure Pulse Oximetry 95 Oxygen Delivery Method Nasal Cannula Oxygen Flow Rate 2 Fraction of Inspired Oxygen Fraction of Inspired Oxygen 28 SaO2/FiO2 Ratio 353 Oxygen Delivery Method Nasal Cannula Oxygen Flow Rate 2 Const Other: laying in bed in no distress Eyes Other: pupils equal, round, reactive, EOMI Resp Other: decreased breath sounds b/l, not wheezy Cardio Other: RRR GI Other: not distended Skin Other: no rashes Neuro Other: w/o deficits Extrem Other: w/o swelling Psych Other: lucid Objective Labs 05/18/23 10:26 05/18/23 10:26 Labs: Laboratory Results - last 24 hr 05/18/23 05/18/23 05/18/23 10:26 10:26 10:26 WBC 7.2 RBC 4.60 Hgb 13.0 Hct 38.9 MCV 84.7 MCH 28.3 MCHC 33.4 RDW 15.5 H Plt Count 193 Neut % (Auto) 74.5 Lymph % (Auto) 12.7 L [place] % (Auto) 7.8 Eos % (Auto) 4.0 Baso % (Auto) 1.0 Neut # (Auto) 5400 Lymph # (Auto) 900 L [place] # (Auto) 600 Eos # (Auto) 300 Baso # (Auto) 100 Sodium 136 L Potassium 3.4 Chloride 97 L Carbon Dioxide 32 BUN 18 H Creatinine 0.93 Estimated GFR 60 BUN/Creatinine Ratio 19.4 Glucose 130 H Calcium 10.5 H Magnesium 1.8 Troponin I 05/18/23 10:26 WBC RBC Hgb Hct MCV MCH MCHC RDW Plt Count Neut % (Auto) Lymph % (Auto) [place] % (Auto) Eos % (Auto) Baso % (Auto) Neut # (Auto) Lymph # (Auto) [place] # (Auto) Eos # (Auto) Baso # (Auto) Sodium Potassium Chloride Carbon Dioxide BUN Creatinine Estimated GFR BUN/Creatinine Ratio Glucose Calcium Magnesium Troponin I 0.671 H* [facility] Medical History (Updated 05/21/23 @ 10:33 by Luiz Berg MD) Aneurysm of infrarenal abdominal aorta Bilateral carpal tunnel syndrome CAD (coronary artery disease) COPD (chronic obstructive pulmonary disease) with emphysema Elevated TSH HTN (hypertension) Hyperlipidemia Unstable angina Valvular heart disease Surgical History H/O hysterectomy with oophorectomy H/O three vessel coronary artery bypass Hx of heart artery stent Status post cholecystectomy Family History Father Lung cancer Mother COPD (chronic obstructive pulmonary disease) Social History household members: family, children and friend(s) Smoking Status: Former smoker alcohol intake: never Discharge Plan Discharge Plan Patient Disposition: Home Provider Discharge Comment: You were admitted for a minor heart attack. We treated this with IV heparin over 48 hours. I've raised your home Imdur to 2 pills in the morning to help with the chest pains. Discharge orders & Medications Prescriptions: Continued aspirin 81 MG tablet,delayed release (DR/EC) 81 mg PO QDAY Qty: 0 Rx Instructions: morning omega 8-wzj-num-fish oil [Fish Oil] 1,000 mg (120 mg-180 mg) Capsule 1,000 mg PO DAILY nitroglycerin [Nitrostat] 0.4 mg Tablet, Sublingual 0.4 mg SUBLINGUAL Q5-15M PRN (Reason: Chest Pain) vitamin E 400 unit Capsule 400 unit PO DAILY multivitamin Tablet,Chewable 1 tab PO DAILY fluticasone propion-salmeterol [Advair Diskus] 500-50 mcg/dose blister with device 1 ea INHALATION BID Patient Comments: INHALE 1 DOSE BY MOUTH TWICE DAILY DIRECTED prednisone 20 mg tablet 20 mg PO DAILY PRN (Reason: Shortness Of Breath Or Wheezing) atorvastatin [Lipitor] 20 mg tablet 40 mg PO QPM Patient Comments: patient states she forgets to take diltiazem HCl [Cartia XT] 120 mg capsule,extended release 24hr 120 mg PO QAM Patient Comments: TAKE 1 CAPSULE BY MOUTH ONCE DAILY levothyroxine 88 mcg tablet 88 mcg PO QAM Patient Comments: TAKE 1 TABLET BY MOUTH ONCE DAILY lisinopril 40 mg tablet 20 mg PO QAM Patient Comments: TAKE 1 TABLET BY MOUTH ONCE DAILY clopidogrel 75 mg tablet 75 mg PO QAM ipratropium-albuterol 0.5 mg-3 mg(2.5 mg base)/3 mL solution for nebulization INHALATION PRN (Reason: Shortness Of Breath Or Wheezing) metoprolol succinate 25 mg tablet extended release 24 hr 25 mg PO DAILY Patient Comments: pt has not started, it is at the pharmacy for her to product picker 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 10 mg Tablet 10 mg PO TID PRN (Reason: Muscle Spasm) albuterol 90 mcg/actuation Aerosol 90 mcg INHALATION Q4-6H PRN (Reason: Shortness Of Breath) torsemide 20 mg tablet 40 mg PO DAILY Changed isosorbide mononitrate 120 mg tablet extended release 24 hr 240 mg PO QAM Qty: 30 0RF Patient Comments: TAKE 1 TABLET BY MOUTH ONCE DAILY IN THE MORNING Follow up/Referrals: Catie Storm, MEDICAL UNIT SECRETARY [Primary Care Provider] - 2 Weeks Visit Report/Discharge Packet Instructions: Heart Attack Stand Alone Forms: Patient Portal/API, Stroke Signs & Symptoms Discharge Data Primary Care Provider: Catie Storm Discharges patient from system. Discharge Date/Time: 05/18/23 13:45
== END 2023-05-18 13:45 | disposition home or self-care (01) | DRG 281 ==
LOC: ED 05-16 21:39 → AC 05-16 21:40
PROVIDERS: Student in an Organized Health Care Education/Training Program; Admitting Provider Internal Medicine; Emergency Provider Emergency Medicine; PCP Nurse Practitioner Family; Referring Provider Emergency Medicine; Visit Provider Internal Medicine
DX: I21.4 Non-ST elevation (NSTEMI) myocardial infarction (principal); J96.11 Chronic respiratory failure with hypoxia; I25.10 Atherosclerotic heart disease of native coronary artery without angina pectoris; J44.9 Chronic obstructive pulmonary disease, unspecified; I10 Essential (primary) hypertension; E78.5 Hyperlipidemia, unspecified; Z87.891 Personal history of nicotine dependence; Z95.1 Presence of aortocoronary bypass graft
CPT/HCPCS: 36415; 71045; 80048; 80053; 82550; 83690; 83735; 84484; 85025; 85610; 85730; 87635; 93005; 93306; 94150; 94640; 94762; 96365; 96366; 96376; 99285; C9803; A9270; J1644; J7613

== ENCOUNTER 2023-06-05 08:09 | Emergency (ER) | payer OTHER, SELFPAY ==
[2023-05-16 22:22] VITALS: BMI 24.2
[2023-06-05] VITALS (19 sets, daily range): BP systolic 149–182; BP diastolic 67–94; PULSE 66–77; RESP 19–50; TEMP 36.5; O2SAT 94–99; BMI 24.5
--- NOTE | 2023-06-05 08:17 | DI.RAD.S_ITS ---
PROCEDURE: XR CHEST 1V INDICATIONS: CP TECHNIQUE: One view of the chest was acquired. COMPARISON: [facility], CR, XR CHEST 1V, 03/28/2023, 11:35. [facility], CR, XR CHEST 1V, 05/15/2023, 20:04. FINDINGS: Surgical changes and devices: Median sternotomy wires are present and appear intact. Lungs and pleura: Mild diffuse interstitial prominence. Findings are most pronounced in the mid and lower lung zones. Small bilateral pleural effusions suspected, larger on the right. No focal consolidation. No pneumothorax. Mediastinum: The cardiomediastinal contours remain stable with enlargement of the cardiac silhouette. Atherosclerotic calcifications of the aortic arch are present. Bones and chest wall: No suspicious bony lesions. Overlying soft tissues appear unremarkable. IMPRESSION: Cardiomegaly with mild diffuse interstitial prominence and suspected small left greater than right bilateral pleural effusions. Findings are favored to represent pulmonary edema/CHF although superimposed infection not excluded if clinically appropriate. No focal consolidation seen. Dictated by: Garrett Dan M.D. on 06/05/2023 at 8:30 Approved by: Garrett Dan M.D. on 06/05/2023 at 8:32
--- NOTE | 2023-06-05 08:33 | ED.CHESTPAIN ---
HPI - Chest Pain General Chief Complaint: Chest Pain Stated Complaint: Chest Pain Time Seen by Provider: 06/05/23 08:09 Source: patient and EMS Mode of arrival: EMS Limitations: no limitations History of Present Illness HPI narrative: 87-year-old female with history of COPD (chronically on 2L O2), HFrEF (EF 30-35%), CAD presents by EMS from home for chest pain. Patient has known 3-vessel coronary disease, and in 04/2023 patient was diagnosed with NSTEMI here at [facility]. Patient initially was to be transferred, however after discussion with cardiology patient was deemed too high risk due to large infrarenal AAA. Patient's chest pain in the ED was controlled and she was kept at [facility] on heparin and subsequently discharged. Patient states that she chronically has 2/10 chest pressure, however this morning she was taking otu her trash when she felt the pressure worsen to 6/10. She took 324 ASA at home and called 911. EKG by EMS showed RBBB, which is seen on previous EKGs. She was given 0.4mg nitro x2 with improvement in pain. Patient's pain is currently back to her baseline. Related Data Home Medications Medication Instructions Recorded Confirmed aspirin 81 mg tablet,delayed 81 mg PO QDAY ##0 07/11/17 05/21/23 release multivitamin 1 tab PO DAILY 07/07/18 05/21/23 nitroglycerin 0.4 mg sublingual 0.4 mg sublingual Q5-15M PRN Chest 07/07/18 06/05/23 tablet (Nitrostat) Pain omega 4-uac-qmj-fish oil 1,000 mg 1,000 mg PO DAILY 07/07/18 05/21/23 (120 mg-180 mg) capsule (Fish Oil) vitamin E 268 mg (400 unit) capsule 400 unit PO DAILY 07/07/18 05/21/23 atorvastatin 20 mg tablet (Lipitor) 40 mg PO QPM 05/04/22 05/21/23 diltiazem HCl 120 mg 120 mg PO QAM 05/04/22 05/21/23 capsule,extended release 24 hr (Cartia XT) levothyroxine 88 mcg tablet 88 mcg PO QAM 05/04/22 05/21/23 lisinopril 40 mg tablet 20 mg PO QAM 05/04/22 05/21/23 albuterol 90 mcg/actuation aerosol 90 mcg inhalation Q4-6H PRN 05/20/22 05/21/23 inhaler Shortness Of Breath clopidogrel 75 mg tablet 75 mg PO QAM 05/20/22 05/21/23 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 10 mg tablet 10 mg PO TID PRN Muscle Spasm 05/20/22 05/21/23 ipratropium 0.5 mg-albuterol 3 mg ml inhalation PRN Shortness Of 05/20/22 05/21/23 (2.5 mg base)/3 mL nebulization Breath Or Wheezing soln metoprolol succinate 25 mg 25 mg PO DAILY 05/20/22 05/21/23 tablet,extended release 24 hr torsemide 20 mg tablet 40 mg PO DAILY 04/29/23 05/21/23 fluticasone 500 mcg-salmeterol 50 1 ea inhalation BID 05/16/23 05/21/23 mcg/dose blistr powdr for inhalation (Advair Diskus) prednisone 20 mg tablet 20 mg PO DAILY PRN Shortness Of 05/16/23 05/21/23 Breath Or Wheezing Previous Rx's Medication Instructions Recorded isosorbide mononitrate 120 mg 240 mg (2 x 120 mg) PO QAM #30 tabs 05/18/23 tablet,extended release 24 hr Allergies Allergy/AdvReac Type Severity Reaction Status Date / Time amlodipine Allergy Intermediate Verified 05/21/23 10:11 doxazosin [From Cardura] Allergy Intermediate Rash Verified 05/21/23 10:11 doxycycline Allergy Intermediate Rash Verified 05/21/23 10:11 gemfibrozil Allergy Intermediate Rash Verified 05/21/23 10:11 levofloxacin Allergy Intermediate Rash Verified 05/21/23 10:11 losartan Allergy Intermediate Rash Verified 05/21/23 10:11 montelukast [From Singulair] Allergy Intermediate Difficulty Verified 05/21/23 10:11 Breathing Sulfa (Sulfonamide Allergy Intermediate rash Verified 05/21/23 10:11 Antibiotics) sulfamethoxazole Allergy Intermediate Rash Verified 05/21/23 10:11 [From Bactrim] trimethoprim [From Bactrim] Allergy Intermediate Rash Verified 05/21/23 10:11 carvedilol Allergy Mild Rash Verified 05/21/23 10:11 acarbose AdvReac Intermediate Abdominal Verified 05/21/23 10:11 Pain chlorthalidone AdvReac Intermediate Redness of Verified 05/21/23 10:11 Skin metoprolol AdvReac Intermediate Verified 05/21/23 10:11 nifedipine AdvReac Intermediate Chills Verified 05/21/23 10:11 budesonide [From Symbicort] AdvReac Mild Anxiety Verified 05/21/23 10:11 choline fenofibrate AdvReac Mild Gastrointestinal Verified 05/21/23 10:11 [From Trilipix] Upset formoterol [From Symbicort] AdvReac Mild Anxiety Verified 05/21/23 10:11 Patient History Medical History (Updated 06/05/23 @ 12:05 by Shayla Carmona MD) Bilateral carpal tunnel syndrome Aneurysm of infrarenal abdominal aorta Hyperlipidemia 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 CAD (coronary artery disease) HTN (hypertension) Elevated TSH Unstable angina Surgical History Status post cholecystectomy H/O hysterectomy with oophorectomy H/O three vessel coronary artery bypass Hx of heart artery stent Family History Father Lung cancer Mother COPD (chronic obstructive pulmonary disease) Social History household members: family, children and friend(s) Smoking Status: Former smoker alcohol intake: never Smoking Status: Former smoker tobacco type: cigarettes alcohol intake frequency: 0-2 drinks per day Substance Use Type: does not use Exam Initial Vital Signs Initial Vital Signs: Vital Signs Temperature 97.7 F 06/05/23 08:15 Pulse Rate 70 06/05/23 08:15 Respiratory Rate 28 H 06/05/23 08:15 Blood Pressure 175/72 H 06/05/23 08:15 Pulse Oximetry 96 06/05/23 08:15 Oxygen Delivery Method Nasal Cannula 06/05/23 08:15 Oxygen Flow Rate 2 06/05/23 08:15 Course Orders Ordered: ED Orders 06/05/23 08:17 Chest [XR chest 1V] Stat 06/05/23 08:19 EKG-12 Lead Stat 06/05/23 08:50 BNP [NT-proBNP (BNP-Adult 18+)] Stat CMP [Comprehensive Metabolic Panel] Stat PT [Prothrombin Time INR] Stat Troponin & CK Cardiac Panel Stat 06/05/23 09:09 CBC Auto Diff [Complete Blood Count AUTO DIFF] Stat 06/05/23 10:11 Trop I [Troponin I] Stat 06/05/23 11:25 Trop I [Troponin I] Stat Discontinued Medications Nitroglycerin (Nitroglycerin 0.4 Mg Sl Tab) 0.4 mg SL NOW ONE Stop: 06/05/23 08:32 Last Admin: 06/05/23 08:41 Dose: 0.4 mg Documented By: CECILIA Vital Signs Vital signs: Vital Signs - 8 hr 06/05/23 08:15 06/05/23 08:19 06/05/23 08:30 Temperature 97.7 F Pulse Rate 70 71 71 Respiratory Rate 28 H 34 H 31 H Blood Pressure 175/72 H Pulse Oximetry 96 97 Oxygen Delivery Method Nasal Cannula Nasal Cannula Oxygen Flow Rate 2 2 06/05/23 08:40 06/05/23 08:40 06/05/23 08:41 Temperature Pulse Rate 69 69 Respiratory Rate 25 H Blood Pressure 165/70 H 165/70 H Pulse Oximetry 98 Oxygen Delivery Method Nasal Cannula Oxygen Flow Rate 2 06/05/23 09:00 06/05/23 09:01 06/05/23 09:01 Temperature Pulse Rate 69 71 Respiratory Rate 26 H 25 H Blood Pressure 162/69 H Pulse Oximetry 97 98 Oxygen Delivery Method Nasal Cannula Oxygen Flow Rate 2 06/05/23 09:30 06/05/23 09:31 06/05/23 09:31 Temperature Pulse Rate 67 68 Respiratory Rate 20 20 Blood Pressure 154/67 H Pulse Oximetry 99 99 Oxygen Delivery Method Nasal Cannula Nasal Cannula Oxygen Flow Rate 2 2 06/05/23 10:00 06/05/23 10:01 06/05/23 10:01 Temperature Pulse Rate 67 68 Respiratory Rate 20 20 Blood Pressure 155/69 H Pulse Oximetry 97 97 Oxygen Delivery Method Nasal Cannula Oxygen Flow Rate 2 06/05/23 10:21 06/05/23 10:21 06/05/23 10:30 Temperature Pulse Rate 77 Respiratory Rate 37 H Blood Pressure 168/71 H 182/94 H Pulse Oximetry 94 Oxygen Delivery Method Room Air Oxygen Flow Rate 06/05/23 10:30 06/05/23 11:00 06/05/23 11:01 Temperature Pulse Rate 70 66 66 Respiratory Rate 35 H 21 19 Blood Pressure Pulse Oximetry 98 98 98 Oxygen Delivery Method Nasal Cannula Nasal Cannula Nasal Cannula Oxygen Flow Rate 2 2 2 06/05/23 11:01 06/05/23 11:30 06/05/23 11:30 Temperature Pulse Rate 71 Respiratory Rate 24 Blood Pressure 170/70 H 158/68 H Pulse Oximetry 98 Oxygen Delivery Method Nasal Cannula Oxygen Flow Rate 2 MDM - Chest Pain Differential Diagnosis Differential diagnosis: Likely stable angina, unstable angina pectoris and atypical chest pain Lab Data 06/05/23 09:09 06/05/23 08:50 Labs: Lab Results 06/05/23 06/05/23 06/05/23 Range/Units 08:50 09:09 10:11 WBC 9.6 (4.5-11.0) X10^3/uL RBC 4.21 (4.0-5.2) X10^6/uL Hgb 11.9 L (12.0-16.0) g/dL Hct 35.0 L (36-46) % MCV 83.1 (80-100) fL MCH 28.2 (26-34) PG MCHC 33.9 (30-36) % RDW 15.0 H (11.6-14.8) % Plt Count 281 (150-400) X10^3/uL Neut % (Auto) 81.9 H (50-75) % Lymph % (Auto) 8.4 L (25-40) % [place] % (Auto) 6.0 (3-14) % Eos % (Auto) 2.6 (2-4) % Baso % (Auto) 1.1 (0-2) % Neut # (Auto) 7900 H (5174-0426) /uL Lymph # (Auto) 800 L (3057-4341) /uL [place] # (Auto) 600 (0-900) /uL Eos # (Auto) 200 (0-450) /uL Baso # (Auto) 100 (0-100) /uL PT 13.3 H (10.1-12.7) SECONDS INR 1.2 (0.9-1.3) Sodium 138 (137-145) mmol/L Potassium 3.6 (3.4-5.1) mmol/L Chloride 98 (98-107) mmol/L Carbon Dioxide 32 (22-32) mmol/L BUN 17 (7-17) mg/dL Creatinine 0.84 (0.52-1.04) mg/dL Estimated GFR > 60 (>60) mL/min BUN/Creatinine Ratio 20.2 (6-22) Glucose 106 (80-110) mg/dL Calcium 9.5 (8.4-10.2) mg/dL Total Bilirubin 0.9 (0.2-1.3) mg/dL AST 31 (14-36) IU/L ALT 16 (<35) IU/L Alkaline Phosphatase 61 (38-126) U/L Total Creatine Kinase 28 L (30-135) U/L Troponin I 0.022 0.022 (0.01-0.034) ng/mL NT-Pro-B Natriuret Pep 2920 H (<450) pg/mL Total Protein 6.4 (6.3-8.2) g/dL Albumin 3.5 (3.5-5.0) g/dL Globulin 2.9 (1.7-4.1) g/dL Albumin/Globulin Ratio 1.2 (1.0-2.8) 06/05/23 Range/Units 11:25 WBC (4.5-11.0) X10^3/uL RBC (4.0-5.2) X10^6/uL Hgb (12.0-16.0) g/dL Hct (36-46) % MCV (80-100) fL MCH (26-34) PG MCHC (30-36) % RDW (11.6-14.8) % Plt Count (150-400) X10^3/uL Neut % (Auto) (50-75) % Lymph % (Auto) (25-40) % [place] % (Auto) (3-14) % Eos % (Auto) (2-4) % Baso % (Auto) (0-2) % Neut # (Auto) (4218-8858) /uL Lymph # (Auto) (2399-8062) /uL [place] # (Auto) (0-900) /uL Eos # (Auto) (0-450) /uL Baso # (Auto) (0-100) /uL PT (10.1-12.7) SECONDS INR (0.9-1.3) Sodium (137-145) mmol/L Potassium (3.4-5.1) mmol/L Chloride (98-107) mmol/L Carbon Dioxide (22-32) mmol/L BUN (7-17) mg/dL Creatinine (0.52-1.04) mg/dL Estimated GFR (>60) mL/min BUN/Creatinine Ratio (6-22) Glucose (80-110) mg/dL Calcium (8.4-10.2) mg/dL Total Bilirubin (0.2-1.3) mg/dL AST (14-36) IU/L ALT (<35) IU/L Alkaline Phosphatase (38-126) U/L Total Creatine Kinase (30-135) U/L Troponin I 0.020 (0.01-0.034) ng/mL NT-Pro-B Natriuret Pep (<450) pg/mL Total Protein (6.3-8.2) g/dL Albumin (3.5-5.0) g/dL Globulin (1.7-4.1) g/dL Albumin/Globulin Ratio (1.0-2.8) ECG Data Interpretation: Normal sinus rhythm, rate 69 beats per minute. Right bundle-branch block, no new T-wave inversions. No STEMI MDM Narrative Medical decision making narrative: This is a nontoxic appearing patient with known severe [place] coronary disease not amenable to PCI due to known infrarenal AAA. EKG is right bundle branch block with no ST elevations to suggest STEMI. Patient is currently back to her baseline level of chronic chest pain. Laboratory work and imaging reviewed. Repeat negative troponins. Chest x-ray shows mild congestion, patient has known heart failure with reduced ejection fraction in his currently taking torsemide. She is saturating well on her usual baseline nasal cannula and denies shortness of breath. No clinical signs of volume overload. Patient was counseled on all of her lab and imaging findings, she is eager to go home and has her son on his way to transport her with her home oxygen set up. 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 ED return precautions discussed at bedside. Patient expressed understanding of the plan and is in agreement at this time. All questions answered at the time of discharge. Discharge Plan Departure Patient Disposition: Home Clinical Impression: Chest pain Instructions: DI for Chest Pain Prescriptions: No Action aspirin 81 MG tablet,delayed release (DR/EC) 81 mg PO QDAY Qty: 0 Rx Instructions: morning omega 8-pxr-vkg-fish oil [Fish Oil] 1,000 mg (120 mg-180 mg) Capsule 1,000 mg PO DAILY nitroglycerin [Nitrostat] 0.4 mg Tablet, Sublingual 0.4 mg SUBLINGUAL Q5-15M PRN (Reason: Chest Pain) Patient Comments: Patient has not ever taken nitro at home, education provided to her today. She was administered 2x nitro by EMS en route, and 1x nitro while in the ER. vitamin E 400 unit Capsule 400 unit PO DAILY multivitamin Tablet,Chewable 1 tab PO DAILY fluticasone propion-salmeterol [Advair Diskus] 500-50 mcg/dose blister with device 1 ea INHALATION BID Patient Comments: INHALE 1 DOSE BY MOUTH TWICE DAILY DIRECTED prednisone 20 mg tablet 20 mg PO DAILY PRN (Reason: Shortness Of Breath Or Wheezing) isosorbide mononitrate 120 mg tablet extended release 24 hr 240 mg PO QAM Qty: 30 0RF Patient Comments: TAKE 1 TABLET BY MOUTH ONCE DAILY IN THE MORNING atorvastatin [Lipitor] 20 mg tablet 40 mg PO QPM Patient Comments: patient states she forgets to take diltiazem HCl [Cartia XT] 120 mg capsule,extended release 24hr 120 mg PO QAM Patient Comments: TAKE 1 CAPSULE BY MOUTH ONCE DAILY levothyroxine 88 mcg tablet 88 mcg PO QAM Patient Comments: TAKE 1 TABLET BY MOUTH ONCE DAILY lisinopril 40 mg tablet 20 mg PO QAM Patient Comments: TAKE 1 TABLET BY MOUTH ONCE DAILY clopidogrel 75 mg tablet 75 mg PO QAM ipratropium-albuterol 0.5 mg-3 mg(2.5 mg base)/3 mL solution for nebulization INHALATION PRN (Reason: Shortness Of Breath Or Wheezing) metoprolol succinate 25 mg tablet extended release 24 hr 25 mg PO DAILY Patient Comments: pt has not started, 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
[2023-06-05] MEDS: NITROGLYCERIN 0.4 MG SL TAB SL (08:41)
--- NOTE | 2023-06-05 09:00 | PC.NURSE ---
Pt reports no longer feeling chest heaviness/pressure after the third dose of nitro. Upon arrival she states she usually has a 2\10 chest pressure at her baseline. I asked if she has nitro at home and she states yes, but i didnt think about taking it. I provided education for patient regarding appropriate use of nitroglycerin at home. Patient expressed understanding, she keeps the nitro in her pocket and its with her now.
[2023-06-05 09:14] LABS: Add Manual Diff / Slide Review NO; Basophils Absolute Auto 100 /uL (0-100); Basophils Percent Auto 1.1 % (0-2); Eosinophils Absolute Auto 200 /uL (0-450); Eosinophils Percent Auto 2.6 % (2-4); Hemoglobin 11.9 g/dL (12.0-16.0); Lymphocytes Absolute Auto 800 /uL (1100-4500); Lymphocytes Percent Auto 8.4 % (25-40); Mean Corpuscular HGB Conc 33.9 % (30-36); Mean Corpuscular Hemoglobin 28.2 PG (26-34); Mean Corpuscular Volume 83.1 fL (80-100); Monocytes Absolute Auto 600 /uL (0-900); Neutrophils Absolute Auto 7900 /uL (1500-7000); Neutrophils Percent Auto 81.9 % (50-75); Platelet Count 281 X10^3/uL (150-400); Red Blood Cell Count 4.21 X10^6/uL (4.0-5.2); White Blood Cell Count 9.6 X10^3/uL (4.5-11.0)
[2023-06-05 09:18] LABS: INR 1.2 (0.9-1.3); Prothrombin Time 13.3 SECONDS (10.1-12.7)
[2023-06-05 09:22] LABS: Alanine Aminotransferase 16 IU/L (<35); Albumin 3.5 g/dL (3.5-5.0); Albumin Globulin Ratio 1.2 (1.0-2.8); Alkaline Phosphatase 61 U/L (38-126); Aspartate Aminotransferase 31 IU/L (14-36); BUN Creatinine Ratio 20.2 (6-22); Bilirubin Total 0.9 mg/dL (0.2-1.3); Blood Urea Nitrogen 17 mg/dL (7-17); Calcium 9.5 mg/dL (8.4-10.2); Carbon Dioxide 32 mmol/L (22-32); Chloride 98 mmol/L (98-107); Creatine Kinase 28 U/L (30-135); Estimated Glomerular Filt Rate > 60 mL/min (>60); Globulin 2.9 g/dL (1.7-4.1); Glucose 106 mg/dL (80-110); HEMOLYSIS 27 (0-50); Potassium 3.6 mmol/L (3.4-5.1); Sodium 138 mmol/L (137-145); Total Protein 6.4 g/dL (6.3-8.2)
[2023-06-05 09:34] LABS: NT-proBNP (BNP-Adult 18+) 2920 pg/mL (<450); Troponin I 0.022 ng/mL (0.01-0.034)
--- NOTE | 2023-06-05 10:21 | PC.NURSE ---
Patient is on 2L [place] oxygen at home baseline. She did not come to the ER with any home O2. I asked if she is discharged, how will she have oxygen to go home with. Pt responds that one of her sons who lives in [place] can drive her home, but she really doesnt want him to drive all the way to [place] to retrieve an oxygen tank before he picks her up from the ER. Pt removed her o2 for 10 minutes to evaluate where her o2 would be. She says she often removes her O2 at home to go out to the laundry room and change laundry. I educated patient how removing the oxygen could cause more stress on her heart, especially since she was brought to the ER for chest pressure today. I repeated that patient should contact her son and have him pickling solution maker her oxygen tank incase she is discharged. Pt reluctantly agreed and called her son. Patient remains on 2L [place] in the ER. No further concerns at this time.
[2023-06-05 10:51] LABS: Troponin I 0.022 ng/mL (0.01-0.034)
--- NOTE | 2023-06-05 11:35 | PC.NURSE ---
Patient states she is having no abnormal chest pressure now. She confirms that she always has 2/10 chest pressure, and when she said earlier she is not having chest pressure, she meant that she is having her baseline 2\10 normal pressure feeling in her chest.
--- NOTE | 2023-06-05 12:30 | PC.NURSE ---
Patient requires home o2 2LNC. Her son is on his way with pt's oxygen tank. Pt will remain in ER on our oxygen until her son arrives.
== END 2023-06-05 12:55 | disposition home or self-care (01) ==
PROVIDERS: Emergency Provider Emergency Medicine; PCP Nurse Practitioner Family
DX: R07.9 Chest pain, unspecified (principal); I50.9 Heart failure, unspecified; Z79.899 Other long term (current) drug therapy
CPT/HCPCS: 36415; 71045; 80053; 82550; 83880; 84484; 85025; 85610; 93005; 99284; 99285

== ENCOUNTER 2023-06-12 11:27 | Inpatient (IN) | payer OTHER, SELFPAY ==
[2023-05-16 22:22] VITALS: BMI 24.2
[2023-06-12] VITALS (36 sets, daily range): BP systolic 85–112; BP diastolic 38–55; PULSE 61–93; RESP 17–40; TEMP 36.3–39.2; O2SAT 91–96; BMI 24.6; BMI 25.8
--- NOTE | 2023-06-12 11:43 | DI.RAD.S_ITS ---
PROCEDURE: XR CHEST 1V INDICATIONS: suspected sepsis TECHNIQUE: One view of the chest was acquired. COMPARISON: [facility], CR, XR CHEST 1V, 06/05/2023, 8:20. FINDINGS: Surgical changes and devices: None. Lungs and pleura: Airspace opacity in the right mid lung consistent with pneumonia. Interstitial prominence is unchanged compared to the prior study and is likely chronic. Mediastinum: Mediastinal contours appear normal. Heart size is enlarged. The aorta is tortuous. Bones and chest wall: No suspicious bony lesions. Overlying soft tissues appear unremarkable. IMPRESSION: Right mid lung airspace opacity consistent with pneumonia. Dictated by: Redd Shah M.D. on 06/12/2023 at 12:12 Approved by: Redd Shah M.D. on 06/12/2023 at 12:14
--- NOTE | 2023-06-12 11:54 | ED_ITS ---
HPI - General Adult General Chief complaint: Fever Stated complaint: shortness of breath, weakness Time Seen by Provider: 06/12/23 11:46 Source: patient and EMS Mode of arrival: EMS Limitations: no limitations History of Present Illness HPI narrative: Patient is an 87-year-old female. She was brought in by EMS for evaluation of shortness of breath and weakness. Her symptoms have been going on for the past couple days and worsening during this time. She does have a history of COPD. She does have a cough. She does not feel like her cough is different from baseline. She is on 2 L of oxygen at home at baseline. She has had some occasional chest discomfort but none currently. She states she is having some urinary frequency. No abdominal tenderness. Generally just does not feel very well. No sinus congestion or sore throat. No skin rashes. No lower extremity edema. She lives at home with her son. Related Data Home Medications Medication Instructions Recorded Confirmed aspirin 81 mg tablet,delayed 81 mg PO QDAY ##0 07/11/17 05/21/23 release multivitamin 1 tab PO DAILY 07/07/18 05/21/23 nitroglycerin 0.4 mg sublingual 0.4 mg sublingual Q5-15M PRN Chest 07/07/18 06/05/23 tablet (Nitrostat) Pain omega [id number] oil 1,000 mg 1,000 mg PO DAILY 07/07/18 05/21/23 (120 mg-180 mg) capsule (Fish Oil) vitamin E 268 mg (400 unit) capsule 400 unit PO DAILY 07/07/18 05/21/23 atorvastatin 20 mg tablet (Lipitor) 40 mg PO QPM 05/04/22 05/21/23 diltiazem HCl 120 mg 120 mg PO QAM 05/04/22 05/21/23 capsule,extended release 24 hr (Cartia XT) levothyroxine 88 mcg tablet 88 mcg PO QAM 05/04/22 05/21/23 lisinopril 40 mg tablet 20 mg PO QAM 05/04/22 05/21/23 albuterol 90 mcg/actuation aerosol 90 mcg inhalation Q4-6H PRN 05/20/22 05/21/23 inhaler Shortness Of Breath clopidogrel 75 mg tablet 75 mg PO QAM 05/20/22 05/21/23 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 10 mg tablet 10 mg PO TID PRN Muscle Spasm 05/20/22 05/21/23 ipratropium 0.5 mg-albuterol 3 mg ml inhalation PRN Shortness Of 05/20/22 05/21/23 (2.5 mg base)/3 mL nebulization Breath Or Wheezing soln metoprolol succinate 25 mg 25 mg PO DAILY 05/20/22 05/21/23 tablet,extended release 24 hr torsemide 20 mg tablet 40 mg PO DAILY 04/29/23 05/21/23 fluticasone 500 mcg-salmeterol 50 1 ea inhalation BID 05/16/23 05/21/23 mcg/dose blistr powdr for inhalation (Advair Diskus) prednisone 20 mg tablet 20 mg PO DAILY PRN Shortness Of 05/16/23 05/21/23 Breath Or Wheezing Previous Rx's Medication Instructions Recorded isosorbide mononitrate 120 mg 240 mg (2 x 120 mg) PO QAM #30 tabs 05/18/23 tablet,extended release 24 hr Allergies Allergy/AdvReac Type Severity Reaction Status Date / Time amlodipine Allergy Intermediate Verified 06/12/23 11:53 doxazosin [From Cardura] Allergy Intermediate Rash Verified 06/12/23 11:53 doxycycline Allergy Intermediate Rash Verified 06/12/23 11:53 gemfibrozil Allergy Intermediate Rash Verified 06/12/23 11:53 levofloxacin Allergy Intermediate Rash Verified 06/12/23 11:53 losartan Allergy Intermediate Rash Verified 06/12/23 11:53 montelukast [From Singulair] Allergy Intermediate Difficulty Verified 06/12/23 11:53 Breathing Sulfa (Sulfonamide Allergy Intermediate rash Verified 06/12/23 11:53 Antibiotics) sulfamethoxazole Allergy Intermediate Rash Verified 06/12/23 11:53 [From Bactrim] trimethoprim [From Bactrim] Allergy Intermediate Rash Verified 06/12/23 11:53 carvedilol Allergy Mild Rash Verified 06/12/23 11:53 acarbose AdvReac Intermediate Abdominal Verified 06/12/23 11:53 Pain chlorthalidone AdvReac Intermediate Redness of Verified 06/12/23 11:53 Skin metoprolol AdvReac Intermediate Verified 06/12/23 11:53 nifedipine AdvReac Intermediate Chills Verified 06/12/23 11:53 budesonide [From Symbicort] AdvReac Mild Anxiety Verified 06/12/23 11:53 choline fenofibrate AdvReac Mild Gastrointestinal Verified 06/12/23 11:53 [From Trilipix] Upset formoterol [From Symbicort] AdvReac Mild Anxiety Verified 06/12/23 11:53 Review of Systems Review of Systems ROS Unobtainable: All systems reviewed & are unremarkable except as noted in HPI and below Patient History Medical History Bilateral carpal tunnel syndrome Aneurysm of infrarenal abdominal aorta Hyperlipidemia 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 CAD (coronary artery disease) HTN (hypertension) Elevated TSH Unstable angina Surgical History Status post cholecystectomy H/O hysterectomy with oophorectomy H/O three vessel coronary artery bypass Hx of heart artery stent Family History Father Lung cancer Mother COPD (chronic obstructive pulmonary disease) Social History household members: family, children and friend(s) Smoking Status: Former smoker alcohol intake: never Smoking Status: Former smoker tobacco type: cigarettes alcohol intake frequency: 0-2 drinks per day Substance Use Type: does not use Exam Initial Vital Signs Initial Vital Signs: Vital Signs Temperature 100.3 F H 06/12/23 11:45 Pulse Rate 93 H 06/12/23 11:45 Respiratory Rate 17 06/12/23 11:45 Blood Pressure 112/55 L 06/12/23 11:45 Pulse Oximetry 96 06/12/23 11:45 Oxygen Delivery Method Nasal Cannula 06/12/23 11:45 Oxygen Flow Rate 2 06/12/23 11:45 Const General: cooperative, comfortable and No ill appearing HENMT Head: normal to inspection and normocephalic Resp Effort & Inspection: not labored and tachypneic Auscultation: clear to auscultation bilaterally Other: On oxygen Cardio Rate: regular rate Rhythm: regular rhythm Heart Sounds: murmur GI Inspection: normal to inspection and non-distended Neuro General: patient alert, patient awake, patient oriented x3 and moves all extremities Speech: speech normal Extrem General: capillary refill normal and No edema Course Orders Ordered: ED Orders 06/12/23 11:43 XR chest 1V Stat RT Consult Eval and Treat NOW 06/12/23 11:50 Complete Blood Count AUTO DIFF Stat Comprehensive Metabolic Panel Stat Lactate (Lactic Acid) Stat Lipase Stat PTT Partial Thromboplastin Vasquez Stat Procalcitonin Stat Prothrombin Time INR Stat 06/12/23 11:55 EKG-12 Lead Stat 06/12/23 12:00 Blood Culture Stat Respiratory Panel (Film Array) Stat 06/12/23 13:00 Urinalysis and Microscopic Stat Urine Culture Stat Sodium Chloride (Normal Saline 0.9%) 1,000 mls @ 125 mls/hr IV CONT ROLANDA Last Infusion: 06/12/23 14:26 Dose: Infused Documented By: Infusion: 06/12/23 13:41 Dose: 999 mls/hr Documented By: Admin: 06/12/23 12:30 Dose: 125 mls/hr Documented By: SUE Sodium Chloride (Normal Saline 0.9%) 1,000 mls @ 500 mls/hr IV BOLUS ONE Stop: 06/12/23 16:30 Ondansetron HCl (Ondansetron 4 Mg Odt) 4 mg SL NOW PRN PRN Reason: Nausea And Vomiting Discontinued Medications Sodium Chloride (Normal Saline 0.9%) 1,000 mls @ 1,000 mls/hr IV BOLUS ONE Stop: 06/12/23 12:41 Last Admin: 06/12/23 12:16 Dose: Not Given Documented By: DENITA Ceftriaxone Sodium 1,000 mg/ (Sodium Chloride) 100 mls @ 200 mls/hr IV NOW ONE Stop: 06/12/23 12:05 Last Admin: 06/12/23 14:26 Dose: 200 mls/hr Documented By: DENITA Acetaminophen (Ofirmev) 1,000 mg in 100 mls @ 400 mls/hr IV NOW ONE Stop: 06/12/23 12:27 Last Infusion: 06/12/23 13:17 Dose: Infused Documented By: Admin: 06/12/23 12:40 Dose: 400 mls/hr Documented By: SUE Azithromycin 500 mg/ Dextrose 250 mls @ 250 mls/hr IV NOW ONE Stop: 06/12/23 12:21 Last Infusion: 06/12/23 14:21 Dose: Infused Documented By: Admin: 06/12/23 13:14 Dose: 250 mls/hr Documented By: SUE Ondansetron HCl (Ondansetron 4 Mg/2 Ml Inj) 4 mg IV NOW PRN PRN Reason: Nausea And Vomiting Last Admin: 06/12/23 13:09 Dose: 4 mg Documented By: SUE Vital Signs Vital signs: Vital Signs - 8 hr 06/12/23 11:45 06/12/23 11:46 06/12/23 12:00 Temperature 100.3 F H Pulse Rate 93 H 90 89 Respiratory Rate 17 33 H 38 H Blood Pressure 112/55 L Pulse Oximetry 96 95 94 Oxygen Delivery Method Nasal Cannula Nasal Cannula Nasal Cannula Oxygen Flow Rate 2 2 2 06/12/23 12:30 06/12/23 13:00 06/12/23 13:25 Temperature 102.5 F H Pulse Rate 85 85 Respiratory Rate 34 H 34 H Blood Pressure 101/53 L Pulse Oximetry 95 95 Oxygen Delivery Method Nasal Cannula Nasal Cannula Oxygen Flow Rate 2 2 06/12/23 13:25 06/12/23 13:30 06/12/23 13:31 Temperature Pulse Rate 84 84 Respiratory Rate 33 H 34 H Blood Pressure 94/53 L Pulse Oximetry 93 94 Oxygen Delivery Method Nasal Cannula Oxygen Flow Rate 2 06/12/23 13:31 06/12/23 13:32 06/12/23 13:32 Temperature Pulse Rate 84 81 Respiratory Rate 34 H 37 H Blood Pressure 96/50 L Pulse Oximetry 93 93 Oxygen Delivery Method Oxygen Flow Rate 06/12/23 13:34 06/12/23 13:35 06/12/23 13:35 Temperature Pulse Rate 82 81 Respiratory Rate 37 H 40 H Blood Pressure 96/48 L Pulse Oximetry 92 94 Oxygen Delivery Method Nasal Cannula Nasal Cannula Oxygen Flow Rate 2 2 06/12/23 13:38 06/12/23 13:38 06/12/23 13:42 Temperature Pulse Rate 76 Respiratory Rate 33 H Blood Pressure 86/47 L 87/49 L Pulse Oximetry 93 Oxygen Delivery Method Nasal Cannula Oxygen Flow Rate 2 06/12/23 13:42 06/12/23 13:45 06/12/23 13:45 Temperature Pulse Rate 71 70 Respiratory Rate 32 H 32 H Blood Pressure 90/48 L Pulse Oximetry 93 94 Oxygen Delivery Method Nasal Cannula Nasal Cannula Oxygen Flow Rate 2 2 06/12/23 13:50 06/12/23 13:50 06/12/23 13:55 Temperature Pulse Rate 71 Respiratory Rate 28 H Blood Pressure 91/50 L 94/48 L Pulse Oximetry 94 Oxygen Delivery Method Nasal Cannula Oxygen Flow Rate 2 06/12/23 13:55 06/12/23 14:00 06/12/23 14:00 Temperature Pulse Rate 75 71 Respiratory Rate 38 H 35 H Blood Pressure 91/46 L Pulse Oximetry 95 96 Oxygen Delivery Method Nasal Cannula Nasal Cannula Oxygen Flow Rate 2 2 06/12/23 14:05 06/12/23 14:05 06/12/23 14:10 Temperature Pulse Rate 70 Respiratory Rate 27 H Blood Pressure 93/48 L 93/46 L Pulse Oximetry 96 Oxygen Delivery Method Nasal Cannula Oxygen Flow Rate 2 06/12/23 14:10 Temperature 99.5 F Pulse Rate 68 Respiratory Rate 28 H Blood Pressure Pulse Oximetry 96 Oxygen Delivery Method Nasal Cannula Oxygen Flow Rate 2 Medical Decision Making Medical Records Medical records reviewed: Yes I reviewed the patient's medical records. Lab Data Lab results reviewed: Yes I reviewed the patient's lab results. 06/12/23 11:50 06/12/23 11:50 Labs: Lab Results 06/12/23 06/12/23 06/12/23 Range/Units 11:50 12:00 13:00 WBC 17.4 H (4.5-11.0) X10^3/uL RBC 3.70 L (4.0-5.2) X10^6/uL Hgb 10.6 L (12.0-16.0) g/dL Hct 30.8 L (36-46) % MCV 83.2 (80-100) fL MCH 28.6 (26-34) PG MCHC 34.3 (30-36) % RDW 14.9 H (11.6-14.8) % Plt Count 248 (150-400) X10^3/uL Neut % (Auto) 90.9 H (50-75) % Lymph % (Auto) 3.3 L (25-40) % [place] % (Auto) 5.2 (3-14) % Eos % (Auto) 0.3 L (2-4) % Baso % (Auto) 0.3 (0-2) % Neut # (Auto) 28304 H (8243-0480) /uL Lymph # (Auto) 600 L (2495-2312) /uL [place] # (Auto) 900 (0-900) /uL Eos # (Auto) 100 (0-450) /uL Baso # (Auto) 100 (0-100) /uL PT 15.1 H (10.1-12.7) SECONDS INR 1.3 (0.9-1.3) APTT 33 (26-36) SECONDS Sodium 131 L (137-145) mmol/L Potassium 4.2 (3.4-5.1) mmol/L Chloride 93 L (98-107) mmol/L Carbon Dioxide 33 H (22-32) mmol/L BUN 23 H (7-17) mg/dL Creatinine 0.96 (0.52-1.04) mg/dL Estimated GFR 58 L (>60) mL/min BUN/Creatinine Ratio 24.0 H (6-22) Glucose 125 H (80-110) mg/dL Lactate 1.1 (0.7-2.1) mmol/L Calcium 9.9 (8.4-10.2) mg/dL Total Bilirubin 1.5 H (0.2-1.3) mg/dL AST 29 (14-36) IU/L ALT 16 (<35) IU/L Alkaline Phosphatase 78 (38-126) U/L Total Protein 6.9 (6.3-8.2) g/dL Albumin 3.7 (3.5-5.0) g/dL Globulin 3.2 (1.7-4.1) g/dL Albumin/Globulin Ratio 1.2 (1.0-2.8) Lipase 36 (23-300) U/L Procalcitonin 0.29 (<0.5) ng/mL Urine Color Yellow Urine Appearance Clear Urine pH 6.5 (4.5-8.0) Ur Specific [place] 1.010 (1.000-1.035) Urine Protein Negative (Negative) Urine Glucose (UA) Negative (Negative) g/dL Urine Ketones Negative (NEGATIVE) Urine Occult Blood Negative (Negative) Urine Nitrate Positive H (Negative) Urine Bilirubin Negative (NEGATIVE) Urine Urobilinogen 1.0 (0.2) E.U./dL Ur Leukocyte Esterase 1+ H (NEGATIVE) Urine RBC None seen (0-5/HPF) Urine WBC 1-5/hpf (0-5/HPF) Ur Squamous Epith Cells 0-1 /hpf (0-5/HPF) Urine Bacteria Many (>30) H (None) Ur Culture Indicated? Specimen cultured Chlamy pneumoniae PCR Not detected (Not Detect) Adenovirus (PCR) Not detected (Not Detect) B.parapertussis DNA PCR Not detected (Not Detecte) Coronavirus OC43 (PCR) Not detected (Not Detect) Coronavirus HKU1 (PCR) Not detected (Not Detect) Coronavirus 229E (PCR) Not detected (Not Detect) SARS-CoV-2 (PCR) Not detected (Not Detecte) Coronavirus NL63 (PCR) Not detected (Not Detect) Human Metapneumovir PCR Not detected (Not Detect) Influenza Type A (PCR) Not detected (Not Detect) Influenza Type B (PCR) Not detected (Not Detect) M. pneumoniae (PCR) Not detected (Not Detect) Parainfluenza 1 (PCR) Not detected (Not Detect) Parainfluenza 2 (PCR) Not detected (Not Detect) Parainfluenza 3 (PCR) Not detected (Not Detect) Parainfluenza 4 (PCR) Not detected (Not Detect) RSV (PCR) Not detected (Not Detect) Entero/Rhino (PCR) Not detected (Not Detect) Imaging Data Chest x-ray: Radiologist's Impression: PROCEDURE: XR CHEST 1V INDICATIONS: suspected sepsis TECHNIQUE: One view of the chest was acquired. COMPARISON: [facility], , XR CHEST 1V, 06/05/2023, 8:20. FINDINGS: Surgical changes and devices: None. Lungs and pleura: Airspace opacity in the right mid lung consistent with pneumonia. Interstitial prominence is unchanged compared to the prior study and is likely chronic. Mediastinum: Mediastinal contours appear normal. Heart size is enlarged. The aorta is tortuous. Bones and chest wall: No suspicious bony lesions. Overlying soft tissues appear unremarkable. IMPRESSION: Right mid lung airspace opacity consistent with pneumonia. ECG Data Attestation: I personally reviewed and interpreted this ECG as follows: Interpretation: Sinus rhythm Ventricular rate 92 Normal axis Right bundle-branch block QTC [address] T wave changes MDM Narrative Medical decision making narrative: History and physical exam and workup is consistent with urinary tract infection and potentially pneumonia. She is alert and oriented x3. Blood cultures are obtained. Antibiotics administered. Nonischemic EKG. Patient does require admission to the hospital for further evaluation and treatment. Discussed the case with Dr. Aguilar hospitalist on-call who will admit for further evaluation and treatment. Discussed the need for admission with the patient. She expressed understanding and agreement as well. Discharge Plan Departure Patient Disposition: Admitted As Inpatient Clinical Impression: Pneumonia, COPD (chronic obstructive pulmonary disease), Urinary tract infection Admit Date/Time: 06/12/23 14:12 Admit Provider: Osmar Aguilar
[2023-06-12 11:59] LABS: Add Manual Diff / Slide Review NO; Basophils Absolute Auto 100 /uL (0-100); Basophils Percent Auto 0.3 % (0-2); Eosinophils Absolute Auto 100 /uL (0-450); Eosinophils Percent Auto 0.3 % (2-4); Hematocrit 30.8 % (36-46); Hemoglobin 10.6 g/dL (12.0-16.0); Lymphocytes Absolute Auto 600 /uL (1100-4500); Lymphocytes Percent Auto 3.3 % (25-40); Mean Corpuscular HGB Conc 34.3 % (30-36); Mean Corpuscular Hemoglobin 28.6 PG (26-34); Mean Corpuscular Volume 83.2 fL (80-100); Monocytes Absolute Auto 900 /uL (0-900); Monocytes Percent Auto 5.2 % (3-14); Neutrophils Absolute Auto 15800 /uL (1500-7000); Neutrophils Percent Auto 90.9 % (50-75); Platelet Count 248 X10^3/uL (150-400); Red Cell Distribution Width 14.9 % (11.6-14.8); White Blood Cell Count 17.4 X10^3/uL (4.5-11.0)
[2023-06-12 12:14] LABS: PTT Partial Thromboplastin Tim 33 SECONDS (26-36)
[2023-06-12 12:15] LABS: Alanine Aminotransferase 16 IU/L (<35); Albumin 3.7 g/dL (3.5-5.0); Albumin Globulin Ratio 1.2 (1.0-2.8); Alkaline Phosphatase 78 U/L (38-126); Aspartate Aminotransferase 29 IU/L (14-36); Bilirubin Total 1.5 mg/dL (0.2-1.3); Blood Urea Nitrogen 23 mg/dL (7-17); Calcium 9.9 mg/dL (8.4-10.2); Carbon Dioxide 33 mmol/L (22-32); Chloride 93 mmol/L (98-107); Estimated Glomerular Filt Rate 58 mL/min (>60); Globulin 3.2 g/dL (1.7-4.1); Glucose 125 mg/dL (80-110); HEMOLYSIS < 15 (0-50); Lactate (Lactic Acid) 1.1 mmol/L (0.7-2.1); Lipase 36 U/L (23-300); Potassium 4.2 mmol/L (3.4-5.1); Sodium 131 mmol/L (137-145); Total Protein 6.9 g/dL (6.3-8.2)
[2023-06-12] MEDS: SODIUM CHLORIDE 0.9% 1,000 ML 125 ML IV ×2 (12:30→23:24)
[2023-06-12 12:32] LABS: Procalcitonin 0.29 ng/mL (<0.5)
[2023-06-12] MEDS: ACETAMINOPHEN IV 1,000 MG/100 ML VIAL 400 MG IV (12:40)
[2023-06-12 12:43] LABS: INR 1.3 (0.9-1.3); Prothrombin Time 15.1 SECONDS (10.1-12.7)
[2023-06-12] MEDS: ONDANSETRON 4 MG/2 ML INJ IV (13:09)
--- NOTE | 2023-06-12 13:11 | PC.NURSE ---
urinary frequency recent hospitalization last week for 3-4 days
[2023-06-12 13:14] LABS: Appearance Urine UA CLEAR; Bilirubin Urine UA NEGATIVE (NEGATIVE); Color Urine UA YELLOW; Glucose Urine UA NEGATIVE (Negative); Ketones Urine UA NEGATIVE (NEGATIVE); Leukocyte Esterase Urine UA 1+ (NEGATIVE); Nitrite Urine UA POSITIVE (Negative); Occult Blood Urine UA NEGATIVE (Negative); Protein Urine UA NEGATIVE (Negative)
[2023-06-12] MEDS: AZITHROMYCIN 500 MG in DEXTROSE 5% IN WATER 250 ML 250 MG IV (13:14)
[2023-06-12 13:15] LABS: pH Urine UA 6.5 (4.5-8.0)
[2023-06-12 13:16] LABS: Adenovirus Not Detected (Not Detect); B. parapertussis Not Detected (Not Detecte); Bordetella pertussis Not Detected (Not Detect); Chlamydophila pneumoniae Not Detected (Not Detect); Coronavirus 229E Not Detected (Not Detect); Coronavirus HKU1 Not Detected (Not Detect); Coronavirus NL 63 Not Detected (Not Detect); Coronavirus OC43 Not Detected (Not Detect); Human Metapneumovirus Not Detected (Not Detect); Human Rhinovirus/Enterovirus Not Detected (Not Detect); Influenza A Not Detected (Not Detect); Influenza B Not Detected (Not Detect); Mycoplasma pneumoniae Not Detected (Not Detect); Parainfluenza Virus 1 Not Detected (Not Detect); Parainfluenza Virus 2 Not Detected (Not Detect); Parainfluenza Virus 3 Not Detected (Not Detect); Parainfluenza Virus 4 Not Detected (Not Detect); Respiratory Syncytial Virus Not Detected (Not Detect); SARS- CoV-2 Not Detected (Not Detecte)
[2023-06-12 13:26] LABS: Bacteria Urine Many (>30); RBC Urine None Seen (0-5/HPF); WBC Urine 1-5/HPF (0-5/HPF)
[2023-06-12 13:27] LABS: Culture Indicated Urine Specimen Cultured; Squamous Epithelial Cell Urine 0-1 /HPF (0-5/HPF)
--- NOTE | 2023-06-12 14:23 | PC.NURSE ---
1340 Patient's Blood pressures dropping to 860's systolic[address] Dr[address] Ta aware and reports to open 125ml/hr fluid bolus to 999ml/hr until it completes the liter. Then will reevaluate. 1400 Patient began complaining of midsternal chest/epigastric pain. Dr. Ta aware and EKG ordered stat.
[2023-06-12] MEDS: cefTRIAXone 1,000 MG in SODIUM CHLORIDE 0.9% 100 ML 200 MG IV (14:26)
--- NOTE | 2023-06-12 14:27 | PC.NURSE ---
Patient having urinary urgency and needs to pee every 15 minutes. She has unstable blood pressure at this time with systolic of 86. Unable to stand at bedside commode. Due to increasing instability of condition with hypotension and new chest pain, a gambino was placed to more accurately measure urine output, to measure temperature, and to keep patient on bedrest. Dr. Ta aware.
[2023-06-12] MEDS: SODIUM CHLORIDE 0.9% 1,000 ML 500 ML IV (14:37)
--- NOTE | 2023-06-12 15:56 | PM.HP.1 ---
History of Present Illness History of Present Illness Date Patient Seen: 06/12/23 Time Patient Seen: 15:56 Date of Onset of Symptoms: 06/10/23 Chief complaint: shortness of breath, weakness Narrative: She is an 87-year-old female with a history of CAD, and COPD, as well as chronic cough. She presents, having not felt well for several days. She is been progressively weak. She denies any overt dyspnea, or cough. She has had urinary frequency and difficulty voiding. She denies any confusion, or headache. She also denies any change in her breathing or shortness of breath. In the emergency department she was found to be volume depleted, and have evidence of pneumonia on chest x-ray as well as urine tract infection on her urinalysis. She was given the sepsis bundle bolus of fluids, her lactic acid was normal. She was given broad-spectrum empiric antibiotics as well. She denies any palpitations, nausea. She has had some anorexia. She denies any diarrhea or abdominal pain. When asked about level of care, she reports do not resuscitate and no invasive maneuvers including intubation. She states that she is a Denominational and ready to meet her create her. FORMERLY [facility] Medical History Bilateral carpal tunnel syndrome Aneurysm of infrarenal abdominal aorta Hyperlipidemia 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 CAD (coronary artery disease) HTN (hypertension) Elevated TSH Unstable angina Surgical History Status post cholecystectomy H/O hysterectomy with oophorectomy H/O three vessel coronary artery bypass Hx of heart artery stent Family History Father Lung cancer Mother COPD (chronic obstructive pulmonary disease) Social History household members: family, children and friend(s) Smoking Status: Former smoker alcohol intake: never Meds Home Medications and Allergies Home Medications Medication Instructions Recorded Confirmed Type aspirin 81 mg tablet,delayed 81 mg PO QDAY ##0 07/11/17 05/21/23 History release multivitamin 1 tab PO DAILY 07/07/18 05/21/23 History nitroglycerin 0.4 mg sublingual 0.4 mg sublingual Q5-15M PRN Chest 07/07/18 06/05/23 History tablet (Nitrostat) Pain omega [id number] oil 1,000 mg 1,000 mg PO DAILY 07/07/18 05/21/23 History (120 mg-180 mg) capsule (Fish Oil) vitamin E 268 mg (400 unit) capsule 400 unit PO DAILY 07/07/18 05/21/23 History atorvastatin 20 mg tablet (Lipitor) 40 mg PO QPM 05/04/22 05/21/23 History diltiazem HCl 120 mg 120 mg PO QAM 05/04/22 05/21/23 History capsule,extended release 24 hr (Cartia XT) levothyroxine 88 mcg tablet 88 mcg PO QAM 05/04/22 05/21/23 History lisinopril 40 mg tablet 20 mg PO QAM 05/04/22 05/21/23 History albuterol 90 mcg/actuation aerosol 90 mcg inhalation Q4-6H PRN 05/20/22 05/21/23 History inhaler Shortness Of Breath clopidogrel 75 mg tablet 75 mg PO QAM 05/20/22 05/21/23 History 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 10 mg tablet 10 mg PO TID PRN Muscle Spasm 05/20/22 05/21/23 History ipratropium 0.5 mg-albuterol 3 mg ml inhalation PRN Shortness Of 05/20/22 05/21/23 History (2.5 mg base)/3 mL nebulization Breath Or Wheezing soln metoprolol succinate 25 mg 25 mg PO DAILY 05/20/22 05/21/23 History tablet,extended release 24 hr torsemide 20 mg tablet 40 mg PO DAILY 04/29/23 05/21/23 History fluticasone 500 mcg-salmeterol 50 1 ea inhalation BID 05/16/23 05/21/23 History mcg/dose blistr powdr for inhalation (Advair Diskus) prednisone 20 mg tablet 20 mg PO DAILY PRN Shortness Of 05/16/23 05/21/23 History Breath Or Wheezing isosorbide mononitrate 120 mg 240 mg (2 x 120 mg) PO QAM #30 tabs 05/18/23 05/21/23 Rx tablet,extended release 24 hr Allergies Allergy/AdvReac Type Severity Reaction Status Date / Time amlodipine Allergy Intermediate Verified 06/12/23 11:53 doxazosin [From Cardura] Allergy Intermediate Rash Verified 06/12/23 11:53 doxycycline Allergy Intermediate Rash Verified 06/12/23 11:53 gemfibrozil Allergy Intermediate Rash Verified 06/12/23 11:53 levofloxacin Allergy Intermediate Rash Verified 06/12/23 11:53 losartan Allergy Intermediate Rash Verified 06/12/23 11:53 montelukast [From Singulair] Allergy Intermediate Difficulty Verified 06/12/23 11:53 Breathing Sulfa (Sulfonamide Allergy Intermediate rash Verified 06/12/23 11:53 Antibiotics) sulfamethoxazole Allergy Intermediate Rash Verified 06/12/23 11:53 [From Bactrim] trimethoprim [From Bactrim] Allergy Intermediate Rash Verified 06/12/23 11:53 carvedilol Allergy Mild Rash Verified 06/12/23 11:53 acarbose AdvReac Intermediate Abdominal Verified 06/12/23 11:53 Pain chlorthalidone AdvReac Intermediate Redness of Verified 06/12/23 11:53 Skin metoprolol AdvReac Intermediate Verified 06/12/23 11:53 nifedipine AdvReac Intermediate Chills Verified 06/12/23 11:53 budesonide [From Symbicort] AdvReac Mild Anxiety Verified 06/12/23 11:53 choline fenofibrate AdvReac Mild Gastrointestinal Verified 06/12/23 11:53 [From Trilipix] Upset formoterol [From Symbicort] AdvReac Mild Anxiety Verified 06/12/23 11:53 Review of Systems Review of Systems Narrative: All else reviewed and otherwise negative. Exam Vital Signs (past 8 hours): - 06/12/23 11:45 06/12/23 11:46 06/12/23 12:00 Temperature 100.3 F H Pulse Rate 93 H 90 89 Respiratory Rate 17 33 H 38 H Blood Pressure 112/55 L Pulse Oximetry 96 95 94 Oxygen Delivery Method Nasal Cannula Nasal Cannula Nasal Cannula Oxygen Flow Rate 2 2 2 06/12/23 12:30 06/12/23 13:00 06/12/23 13:25 Temperature 102.5 F H Pulse Rate 85 85 Respiratory Rate 34 H 34 H Blood Pressure 101/53 L Pulse Oximetry 95 95 Oxygen Delivery Method Nasal Cannula Nasal Cannula Oxygen Flow Rate 2 2 06/12/23 13:25 06/12/23 13:30 06/12/23 13:31 Temperature Pulse Rate 84 84 Respiratory Rate 33 H 34 H Blood Pressure 94/53 L Pulse Oximetry 93 94 Oxygen Delivery Method Nasal Cannula Oxygen Flow Rate 2 06/12/23 13:31 06/12/23 13:32 06/12/23 13:32 Temperature Pulse Rate 84 81 Respiratory Rate 34 H 37 H Blood Pressure 96/50 L Pulse Oximetry 93 93 Oxygen Delivery Method Oxygen Flow Rate 06/12/23 13:34 06/12/23 13:35 06/12/23 13:35 Temperature Pulse Rate 82 81 Respiratory Rate 37 H 40 H Blood Pressure 96/48 L Pulse Oximetry 92 94 Oxygen Delivery Method Nasal Cannula Nasal Cannula Oxygen Flow Rate 2 2 06/12/23 13:38 06/12/23 13:38 06/12/23 13:42 Temperature Pulse Rate 76 Respiratory Rate 33 H Blood Pressure 86/47 L 87/49 L Pulse Oximetry 93 Oxygen Delivery Method Nasal Cannula Oxygen Flow Rate 2 06/12/23 13:42 06/12/23 13:45 06/12/23 13:45 Temperature Pulse Rate 71 70 Respiratory Rate 32 H 32 H Blood Pressure 90/48 L Pulse Oximetry 93 94 Oxygen Delivery Method Nasal Cannula Nasal Cannula Oxygen Flow Rate 2 2 06/12/23 13:50 06/12/23 13:50 06/12/23 13:55 Temperature Pulse Rate 71 Respiratory Rate 28 H Blood Pressure 91/50 L 94/48 L Pulse Oximetry 94 Oxygen Delivery Method Nasal Cannula Oxygen Flow Rate 2 06/12/23 13:55 06/12/23 14:00 06/12/23 14:00 Temperature Pulse Rate 75 71 Respiratory Rate 38 H 35 H Blood Pressure 91/46 L Pulse Oximetry 95 96 Oxygen Delivery Method Nasal Cannula Nasal Cannula Oxygen Flow Rate 2 2 06/12/23 14:05 06/12/23 14:05 06/12/23 14:10 Temperature Pulse Rate 70 Respiratory Rate 27 H Blood Pressure 93/48 L 93/46 L Pulse Oximetry 96 Oxygen Delivery Method Nasal Cannula Oxygen Flow Rate 2 06/12/23 14:10 06/12/23 14:15 06/12/23 14:15 Temperature 99.5 F 99.5 F Pulse Rate 68 74 Respiratory Rate 28 H 33 H Blood Pressure 103/52 L Pulse Oximetry 96 94 Oxygen Delivery Method Nasal Cannula Nasal Cannula Oxygen Flow Rate 2 2 06/12/23 14:19 06/12/23 14:20 06/12/23 14:20 Temperature 99.5 F 99.5 F Pulse Rate 67 68 Respiratory Rate 28 H 27 H Blood Pressure 90/47 L Pulse Oximetry 94 95 Oxygen Delivery Method Nasal Cannula Oxygen Flow Rate 2 06/12/23 14:25 06/12/23 14:25 06/12/23 14:29 Temperature 99.5 F Pulse Rate 69 Respiratory Rate 30 H Blood Pressure 87/45 L 85/46 L Pulse Oximetry 94 Oxygen Delivery Method Oxygen Flow Rate 06/12/23 14:29 06/12/23 14:30 06/12/23 14:30 Temperature 99.5 F 99.5 F Pulse Rate 68 66 Respiratory Rate 26 H 27 H Blood Pressure 91/47 L Pulse Oximetry 94 93 Oxygen Delivery Method Oxygen Flow Rate 06/12/23 14:35 06/12/23 14:35 06/12/23 14:40 Temperature 99.3 F Pulse Rate 69 Respiratory Rate 26 H Blood Pressure 90/47 L 93/49 L Pulse Oximetry 94 Oxygen Delivery Method Oxygen Flow Rate 06/12/23 14:40 06/12/23 14:45 06/12/23 14:45 Temperature 99.3 F 99.1 F Pulse Rate 67 65 Respiratory Rate 28 H 28 H Blood Pressure 96/51 L Pulse Oximetry 94 93 Oxygen Delivery Method Oxygen Flow Rate 06/12/23 14:50 06/12/23 14:50 06/12/23 14:55 Temperature 99.1 F Pulse Rate 66 Respiratory Rate 27 H Blood Pressure 94/54 L 98/52 L Pulse Oximetry 95 Oxygen Delivery Method Oxygen Flow Rate 06/12/23 14:55 06/12/23 15:00 06/12/23 15:00 Temperature 99.0 F 98.8 F Pulse Rate 66 66 Respiratory Rate 28 H 31 H Blood Pressure 96/47 L Pulse Oximetry 94 95 Oxygen Delivery Method Oxygen Flow Rate 06/12/23 15:05 06/12/23 15:05 06/12/23 15:10 Temperature 98.8 F Pulse Rate 63 Respiratory Rate 27 H Blood Pressure 91/50 L 100/49 L Pulse Oximetry 94 Oxygen Delivery Method Oxygen Flow Rate 06/12/23 15:10 06/12/23 15:53 Temperature 98.6 F 97.7 F Pulse Rate 61 67 Respiratory Rate 23 24 Blood Pressure 99/39 L Pulse Oximetry 94 91 Oxygen Delivery Method Oxygen Flow Rate 2 Oxygen Delivery Method Nasal Cannula Oxygen Flow Rate 2 Narrative Exam Narrative: She is alert and oriented x3, no acute distress, fluent speech. EOMI, anicteric sclera Normal oral mucosa. Neck is free of adenopathy and has no JVP. Lungs are clear, increased rate and normal effort. Heart is regular, no murmur. Abdomen is soft, non-tender. Is also non-distended. Extremities are free of edema. Good peripheral pulses. Skin is free of rash, or lesions. No joint deformities. Objective ECG Impression: Diffuse opacities, with a right mid lung infiltrate. Imaging Chest x-ray: Radiologist's impression: Right mid-lung opacity. Labs 06/12/23 11:50 06/12/23 11:50 Labs: Laboratory Results - last 24 hr 06/12/23 06/12/23 06/12/23 11:50 12:00 13:00 WBC 17.4 H RBC 3.70 L Hgb 10.6 L Hct 30.8 L MCV 83.2 MCH 28.6 MCHC 34.3 RDW 14.9 H Plt Count 248 Neut % (Auto) 90.9 H Lymph % (Auto) 3.3 L [place] % (Auto) 5.2 Eos % (Auto) 0.3 L Baso % (Auto) 0.3 Neut # (Auto) 44809 H Lymph # (Auto) 600 L [place] # (Auto) 900 Eos # (Auto) 100 Baso # (Auto) 100 PT 15.1 H INR 1.3 APTT 33 Sodium 131 L Potassium 4.2 Chloride 93 L Carbon Dioxide 33 H BUN 23 H Creatinine 0.96 Estimated GFR 58 L BUN/Creatinine Ratio 24.0 H Glucose 125 H Lactate 1.1 Calcium 9.9 Total Bilirubin 1.5 H AST 29 ALT 16 Alkaline Phosphatase 78 Total Protein 6.9 Albumin 3.7 Globulin 3.2 Albumin/Globulin Ratio 1.2 Lipase 36 Procalcitonin 0.29 Urine Color Yellow Urine Appearance Clear Urine pH 6.5 Ur Specific [place] 1.010 Urine Protein Negative Urine Glucose (UA) Negative Urine Ketones Negative Urine Occult Blood Negative Urine Nitrate Positive H Urine Bilirubin Negative Urine Urobilinogen 1.0 Ur Leukocyte Esterase 1+ H Urine RBC None seen Urine WBC 1-5/hpf Ur Squamous Epith Cells 0-1 /hpf Urine Bacteria Many (>30) H Ur Culture Indicated? Specimen cultured Chlamy pneumoniae PCR Not detected Adenovirus (PCR) Not detected B.parapertussis DNA PCR Not detected Coronavirus OC43 (PCR) Not detected Coronavirus HKU1 (PCR) Not detected Coronavirus 229E (PCR) Not detected SARS-CoV-2 (PCR) Not detected Coronavirus NL63 (PCR) Not detected Human Metapneumovir PCR Not detected Influenza Type A (PCR) Not detected Influenza Type B (PCR) Not detected M. pneumoniae (PCR) Not detected Parainfluenza 1 (PCR) Not detected Parainfluenza 2 (PCR) Not detected Parainfluenza 3 (PCR) Not detected Parainfluenza 4 (PCR) Not detected RSV (PCR) Not detected Entero/Rhino (PCR) Not detected Assessment & Plan Assessment & Plan narrative: 1. Pneumonia, present on admission and active. 2. Urinary tract infection, present on admission and active. 3. Sepsis with fever, respiratory rate of 24, [place] [address] and source of pneumonia and urinary tract infection. Present on admission and active. 4. COPD without exacerbation, present on admission and stable. 5. CAD with history of CABG, present on admission and stable. 6. Acute hypoxic respiratory failure, present on admission and active. Plan: -fluid resuscitate, IV broad-spectrum antibiotics for pneumonia and urinary tract infection, monitor vital signs and mental status, monitor oxygen demand. Level of care: The patient is do not resuscitate, [id number]. She wants to keep things medically quite simple. Anticipate repeating fluid boluses as needed, she might be appropriate for BiPAP if she became more distressed. Will also follow blood and urine cultures and obtain respiratory PCR. Time Spent With Patient Time with patient: 30 to 49 minutes with 50% spent counseling/coordinating care Quality MIPS - Admit I confirm the patient?s Advance Care Plan is present, Code status is documented, Surrogate decision maker is in patient?s record [If Yes, STOP here]: Yes
[2023-06-12] MEDS: SODIUM CHLORIDE 0.9% 1,000 ML 100 ML IV (16:11)
--- NOTE | 2023-06-12 16:57 | PC.NURSE ---
Pt arrived from ED on stretcher at 1545, A&Ox4, no c/o pain, hypotensive but otherwise VSS on 2L NC, Dr. Aguilar aware. Cough present and expiratory wheezes auscultated in LLL, fine crackles in RLL. CMS intact throughout. Tele in place, NSR w/1st degree AV block, BB and prolonged QT. Pt oriented to room and call light. Bed in low position, call light within reach, bed alarm activated.
[2023-06-12 17:58] LABS: Influenza A - CEPHEID Flu A NEGATIVE (NEGATIVE); Influenza B - CEPHEID Flu B NEGATIVE (NEGATIVE); Respiratory Syncytial Virus Negative (Negative)
[2023-06-12 18:09] LABS: COVID-19 CEPHEID 4-PLEX PCR Negative (Negative)
[2023-06-12] MEDS: ACETAMINOPHEN 325 MG TABLET 650 MG PO (18:44)
[2023-06-12] MEDS: ATORVASTATIN 20 MG TABLET 40 MG PO (21:56)
[2023-06-12] MEDS: ASPIRIN EC 81 MG TABLET PO (21:56)
[2023-06-12] MEDS: HEPARIN 5,000 UNIT/ML VIAL 5000 UNIT SUBCUT (21:56)
[2023-06-12] MEDS: ALBUTEROL/IPRATROPIUM 3 ML AMPUL INH (22:32)
[2023-06-13] VITALS (11 sets, daily range): BP systolic 115–148; BP diastolic 46–87; PULSE 67–86; RESP 17–22; TEMP 36.1–36.8; O2SAT 90–99
[2023-06-13 05:11] LABS: Add Manual Diff / Slide Review NO; Basophils Absolute Auto 100 /uL (0-100); Basophils Percent Auto 0.4 % (0-2); Eosinophils Absolute Auto 100 /uL (0-450); Hematocrit 25.2 % (36-46); Hemoglobin 8.6 g/dL (12.0-16.0); Lymphocytes Absolute Auto 600 /uL (1100-4500); Lymphocytes Percent Auto 4.7 % (25-40); Mean Corpuscular HGB Conc 34.3 % (30-36); Mean Corpuscular Hemoglobin 28.8 PG (26-34); Mean Corpuscular Volume 83.9 fL (80-100); Monocytes Absolute Auto 800 /uL (0-900); Monocytes Percent Auto 6.4 % (3-14); Neutrophils Absolute Auto 10900 /uL (1500-7000); Neutrophils Percent Auto 87.5 % (50-75); Platelet Count 209 X10^3/uL (150-400); Red Cell Distribution Width 15.1 % (11.6-14.8); White Blood Cell Count 12.5 X10^3/uL (4.5-11.0)
[2023-06-13 05:21] LABS: BUN Creatinine Ratio 22.6 (6-22); Blood Urea Nitrogen 19 mg/dL (7-17); Calcium 8.6 mg/dL (8.4-10.2); Carbon Dioxide 27 mmol/L (22-32); Chloride 102 mmol/L (98-107); Estimated Glomerular Filt Rate > 60 mL/min (>60); Glucose 93 mg/dL (80-110); HEMOLYSIS < 15 (0-50); Potassium 3.9 mmol/L (3.4-5.1); Sodium 136 mmol/L (137-145)
[2023-06-13] MEDS: ALBUTEROL 2.5 MG/3 ML NEB (ADULT) INH (06:28)
[2023-06-13] MEDS: BUDESONIDE 0.5 MG/2 ML NEB INH (06:29)
[2023-06-13 07:12] LABS: D Dimer 2340 ng/ml (<500)
[2023-06-13 07:26] LABS: Troponin I 0.037 ng/mL (0.01-0.034)
[2023-06-13] MEDS: LEVOTHYROXINE 88 MCG TABLET PO (07:50)
--- NOTE | 2023-06-13 08:41 | DI.RAD.S_ITS ---
PROCEDURE: XR CHEST 1V INDICATIONS: dyspnea TECHNIQUE: One view of the chest was acquired. COMPARISON: [facility], CR, XR CHEST 1 VIEW, 08/30/2021, 23:34. [facility], CR, XR CHEST 1V, 06/05/2023, 8:20. [facility], CR, XR CHEST 1V, 06/12/2023, 11:58. FINDINGS: Surgical changes and devices: Remote CABG Lungs and pleura: Focal pneumonia, right upper lobe, unchanged. Underlying chronic interstitial pulmonary fibrosis. Mediastinum: Mediastinal contours appear normal. Cardiomegaly. Bones and chest wall: No suspicious bony lesions. Overlying soft tissues appear unremarkable. IMPRESSION: 1. No significant change in focal right upper lobe pneumonia. 2. Cardiomegaly, diffuse interstitial changes consistent with underlying chronic interstitial pulmonary fibrosis. Comment: Progress films are recommended until clear. Dictated by: Casper Ferraro M.D. on 06/13/2023 at 9:09 Approved by: Casper Ferraro M.D. on 06/13/2023 at 9:11
--- NOTE | 2023-06-13 08:42 | P.PN_ITS ---
Subjective Subjective Interval history: She feels weak and has a heaviness in her chest as well as a productive cough. She denies shortness of breath but is breathing more rapidly. She denies confusion. Some nausea last night. Exam Vital Signs (past 8 hours): - 06/13/23 04:00 06/13/23 06:30 06/13/23 07:00 Temperature 97.0 F L Pulse Rate 67 Respiratory Rate 20 Blood Pressure 124/52 L Pulse Oximetry 95 93 Oxygen Delivery Method Nasal Cannula Nasal Cannula Oxygen Flow Rate 2 2 06/13/23 07:51 Temperature 98.2 F Pulse Rate 85 Respiratory Rate 19 Blood Pressure 148/54 H Pulse Oximetry 91 Oxygen Delivery Method Oxygen Flow Rate 2 Oxygen Delivery Method Nasal Cannula Oxygen Flow Rate 2 Narrative Exam Narrative: She is in no acute distress, and oriented. Her speech is fluent. She does have increased respiratory rate. Her SpO2 is 96%. Anicteric sclera. Lungs are clear, increased rate. Heart is regular, systolic murmur noted. Abdomen is soft, non-tender. No leg edema. Objective Imaging Chest x-ray: Radiologist's impression: IMPRESSION: Right mid lung airspace opacity consistent with pneumonia. Labs 06/13/23 04:41 06/13/23 04:41 Labs: Laboratory Results - last 24 hr 06/12/23 06/12/23 06/12/23 11:50 12:00 13:00 WBC 17.4 H RBC 3.70 L Hgb 10.6 L Hct 30.8 L MCV 83.2 MCH 28.6 MCHC 34.3 RDW 14.9 H Plt Count 248 Neut % (Auto) 90.9 H Lymph % (Auto) 3.3 L [place] % (Auto) 5.2 Eos % (Auto) 0.3 L Baso % (Auto) 0.3 Neut # (Auto) 36093 H Lymph # (Auto) 600 L [place] # (Auto) 900 Eos # (Auto) 100 Baso # (Auto) 100 PT 15.1 H INR 1.3 APTT 33 D-Dimer Sodium 131 L Potassium 4.2 Chloride 93 L Carbon Dioxide 33 H BUN 23 H Creatinine 0.96 Estimated GFR 58 L BUN/Creatinine Ratio 24.0 H Glucose 125 H Lactate 1.1 Calcium 9.9 Total Bilirubin 1.5 H AST 29 ALT 16 Alkaline Phosphatase 78 Troponin I Total Protein 6.9 Albumin 3.7 Globulin 3.2 Albumin/Globulin Ratio 1.2 Lipase 36 Procalcitonin 0.29 Urine Color Yellow Urine Appearance Clear Urine pH 6.5 Ur Specific [place] 1.010 Urine Protein Negative Urine Glucose (UA) Negative Urine Ketones Negative Urine Occult Blood Negative Urine Nitrate Positive H Urine Bilirubin Negative Urine Urobilinogen 1.0 Ur Leukocyte Esterase 1+ H Urine RBC None seen Urine WBC 1-5/hpf Ur Squamous Epith Cells 0-1 /hpf Urine Bacteria Many (>30) H Ur Culture Indicated? Specimen cultured Chlamy pneumoniae PCR Not detected Adenovirus (PCR) Not detected B.parapertussis DNA PCR Not detected Coronavirus OC43 (PCR) Not detected Coronavirus HKU1 (PCR) Not detected Coronavirus 229E (PCR) Not detected SARS-CoV-2 (PCR) Not detected Coronavirus NL63 (PCR) Not detected Human Metapneumovir PCR Not detected Influenza A (RT-PCR) Influenza Type A (PCR) Not detected Influenza B (RT-PCR) Influenza Type B (PCR) Not detected M. pneumoniae (PCR) Not detected Parainfluenza 1 (PCR) Not detected Parainfluenza 2 (PCR) Not detected Parainfluenza 3 (PCR) Not detected Parainfluenza 4 (PCR) Not detected RSV (PCR) Not detected Entero/Rhino (PCR) Not detected 06/12/23 06/13/23 06/13/23 16:46 04:41 06:46 WBC 12.5 H RBC 3.00 L Hgb 8.6 L Hct 25.2 L MCV 83.9 MCH 28.8 MCHC 34.3 RDW 15.1 H Plt Count 209 Neut % (Auto) 87.5 H Lymph % (Auto) 4.7 L [place] % (Auto) 6.4 Eos % (Auto) 1.0 L Baso % (Auto) 0.4 Neut # (Auto) 99718 H Lymph # (Auto) 600 L [place] # (Auto) 800 Eos # (Auto) 100 Baso # (Auto) 100 PT INR APTT D-Dimer 2340 H Sodium 136 L Potassium 3.9 Chloride 102 Carbon Dioxide 27 BUN 19 H Creatinine 0.84 Estimated GFR > 60 BUN/Creatinine Ratio 22.6 H Glucose 93 Lactate Calcium 8.6 Total Bilirubin AST ALT Alkaline Phosphatase Troponin I 0.037 H Total Protein Albumin Globulin Albumin/Globulin Ratio Lipase Procalcitonin Urine Color Urine Appearance Urine pH Ur Specific [place] Urine Protein Urine Glucose (UA) Urine Ketones Urine Occult Blood Urine Nitrate Urine Bilirubin Urine Urobilinogen Ur Leukocyte Esterase Urine RBC Urine WBC Ur Squamous Epith Cells Urine Bacteria Ur Culture Indicated? Chlamy pneumoniae PCR Adenovirus (PCR) B.parapertussis DNA PCR Coronavirus OC43 (PCR) Coronavirus HKU1 (PCR) Coronavirus 229E (PCR) SARS-CoV-2 (PCR) Negative Coronavirus NL63 (PCR) Human Metapneumovir PCR Influenza A (RT-PCR) Flu a negative Influenza Type A (PCR) Influenza B (RT-PCR) Flu b negative Influenza Type B (PCR) M. pneumoniae (PCR) Parainfluenza 1 (PCR) Parainfluenza 2 (PCR) Parainfluenza 3 (PCR) Parainfluenza 4 (PCR) RSV (PCR) Negative Entero/Rhino (PCR) PFSH Medical History Bilateral carpal tunnel syndrome Aneurysm of infrarenal abdominal aorta Hyperlipidemia 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 CAD (coronary artery disease) HTN (hypertension) Elevated TSH Unstable angina Surgical History Status post cholecystectomy H/O hysterectomy with oophorectomy H/O three vessel coronary artery bypass Hx of heart artery stent Family History Father Lung cancer Mother COPD (chronic obstructive pulmonary disease) Social History household members: family, children and friend(s) Smoking Status: Former smoker alcohol intake: never Assessment & Plan Assessment & Plan narrative: 1. Pneumonia, present on admission and active. 2. Urinary tract infection, present on admission and active. 3. Sepsis with fever, respiratory rate of 24, [place] [address] and source of pneumonia and urinary tract infection. Present on admission and active. 4. COPD without exacerbation, present on admission and stable. 5. CAD with history of CABG, present on admission and stable. 6. Acute hypoxic respiratory failure, present on admission and active. 7. Anemia, new and active. Will follow. 8. Possible demand ischemia, new and active. We will repeat troponin and check ECG. WBC is improved, her hemoglobin is low at 8.6. Troponin 0.037. Urine culture with Gram-negative bacillus, blood cultures pending. Respiratory PCR not collected. Plan: -Stop IVF, check a ECG and CXR, continue IV broad-spectrum antibiotics for pneumonia and urinary tract infection, monitor vital signs and mental status, monitor oxygen demand. Follow cultures. Level of care: The patient is do not resuscitate, [id number]. She wants to keep things medically quite simple. Anticipate repeating fluid boluses as needed, she might be appropriate for BiPAP if she became more distressed. Will also follow blood and urine cultures and obtain respiratory PCR. Time Spent With Patient Time with patient: 30 to 49 minutes with 50% spent counseling/coordinating care Quality VTE Deep Vein Thrombosis/Pulmonary Embolism Present on Admission: No
[2023-06-13] MEDS: HEPARIN 5,000 UNIT/ML VIAL 5000 UNIT SUBCUT ×2 (09:52→20:25)
[2023-06-13] MEDS: AZITHROMYCIN 250 MG TABLET 500 MG PO (09:52)
[2023-06-13] MEDS: ACETAMINOPHEN 325 MG TABLET 650 MG PO ×2 (09:53→17:36)
[2023-06-13] MEDS: CLOPIDOGREL 75 MG TABLET PO (09:53)
[2023-06-13] MEDS: dilTIAZem CD 120 MG CAP PO (09:53)
[2023-06-13] MEDS: METOPROLOL ER 25 MG TABLET PO (09:53)
[2023-06-13] MEDS: lisinopriL 20 MG TABLET PO (09:53)
[2023-06-13] MEDS: ASPIRIN EC 81 MG TABLET PO (09:54)
--- NOTE | 2023-06-13 10:00 | PT.IIE ---
Current Diagnoses Sepsis, unspecified organism (06/12/23) Surgical History (Last Reviewed 05/17/23 @ 07:19 by Walker Roe MD) H/O hysterectomy with oophorectomy H/O three vessel coronary artery bypass Hx of heart artery stent Status post cholecystectomy Medical History (Last Reviewed 06/12/23 @ 11:58 by Jean Ta DO) Aneurysm of infrarenal abdominal aorta Bilateral carpal tunnel syndrome CAD (coronary artery disease) COPD (chronic obstructive pulmonary disease) with emphysema Elevated TSH HTN (hypertension) Hyperlipidemia Unstable angina Valvular heart disease Physical Therapy Inpatient Evaluation/Re-Eval M1 PT/OT-IP Prior Functional Status Start: 06/13/23 12:52 Freq: NEEDED Status: Active Protocol: Document 06/13/23 10:00 AB (Rec: 06/13/23 13:10 AB [email or web address]) Medical Review Prior Functional Status Medical History Reviewed No Communication able to make needs known Mobility and Gait pt stated that she is independent with all mobilities and ambulation without AD. still able to drive prior to hospitalization . Prior Functional Level (Other details) pt uses home O2 @ 2L/min Social History Household Members children Living Arrangements House Number of Floors (Floors) One Floor Number of Stairs To Enter/Railing? 2 steps without rails to enter : stated there is a post/wall that she can hold on to Home Environment Standard Height Toilet,Tub/ Shower Home Equipment Four Wheel Walker,Shower Seat with Backrest,Grab Bars In Shower Additional Social History Comment pt stated that she lives with her son but her son is blind; pt stated that she has mandaen friends that may assist her if needed M2 PT-IP Current Condition Start: 06/13/23 12:52 Freq: NEEDED Status: Active Protocol: Document 06/13/23 10:00 AB (Rec: 06/13/23 13:10 AB [id number]) Physical Therapy Current Condition Current Condition Evaluation Date 06/13/23 Treatment Diagnosis PNA; UTI; COPD; difficulty in walking Onset Date 06/12/23 M3 PT-IP Subjective Start: 06/13/23 12:52 Freq: NEEDED Status: Active Protocol: Document 06/13/23 10:00 AB (Rec: 06/13/23 13:10 AB [email or web address]) Subjective Physical Therapy Visit Type Type Initial Evaluation Visit Start Time 10:00 Visit Stop Time 10:33 Total Visit Minutes 33 Number of TOWEL CABINET REPAIRER Visits 0 Physical Therapy Visit Comments Patient Comments agreeable to do PT Therapy Pain Assessment Pain When Pain Assessed At Rest Location Right Breast Scale Used pain scale not stated Pain Management Techniques Distraction,Modification of Treatment,Re-positioning M4 PT-IP Mobility and Gait Start: 06/13/23 12:52 Freq: NEEDED Status: Active Protocol: Document 06/13/23 10:00 AB (Rec: 06/13/23 13:10 [email or web address]) PT-Bed Mobility Assessment Supine to Sit Supine to Sit Minimal Assistance,Bedrails PT-Transfer Assessment Sit to and From Stand Sit to and from Stand Minimal Assistance,1 Person Assistance,Use of Upper Extremities Equipment Transfer Assistive Device Gait Belt,Front Wheeled Walker Orthotic/Prosthetic Devices or Brace: No Transfers Transfer Destination Chair Transfer Technique ambulated Transfer Ability Level of Assist Minimal Assistance,1 Person Assistance,Use of Upper Extremities Comments Mobility Comments pt in bed and agreed to do PT. O2 sat with 2L/min O2: 96%. pt with constant coughing. completed supine to sit min A and cues and pt used bed rail to assist. able to sit on EOB SBA. completed sit to stand min A and cues. ambulated only ~ 10 ft using FWW and stated that she is feeling tired and unable to walk farther. agreed to sit up on the chair. positioned on the chair. call light and table placed within reach. Gait Assessment Gait Gait Assistance Required: Minimum Assistance Distance (Feet) 10 Able to Maintain Weight Bearing Status Yes During Gait Assistive Devices Assistive Device Gait Belt,Front Wheeled Walker Orthotic/Prosthetic Devices or Brace: No Gait Deviations General Gait Pattern Decreased Stride Length, Decreased Feet Clearance Factors Limiting Gait Function Factors Limiting Gait Function Decreased Activity Tolerance, Decreased Strength,Pain,Poor Balance,Poor Safety Awareness, Respiratory Distress PT-Balance Assessment Sitting Balance and Reactions Static Sitting Balance Ability Good Dynamic Sitting Balance Ability Good Standing Balance and Reactions Static Standing Balance Ability Fair Dynamic Standing Balance Ability Fair Device Used FWW M5 PT-IP Objective Assessments Start: 06/13/23 12:52 Freq: NEEDED Status: Active Protocol: Document 06/13/23 10:00 AB (Rec: 06/13/23 13:10 [email or web address]) Orientation Orientation/Cognition Level of Alertness Alert Orientation Name,Place,Situation Language Function Ability Hard of Hearing Safety Awareness Decreased Safety Awareness Gross Range of Motion Lower Extremity ROM Assessment Within Functional Limits Strength Lower Extremity Strength Assessment Within Functional Limits Muscle Tone Muscle Tone WNL Yes M6 PT-IP Treatment Start: 06/13/23 12:52 Freq: NEEDED Status: Active Protocol: Document 06/13/23 10:00 AB (Rec: 06/13/23 13:10 AB [email or web address]) Physical Therapy Treatment Education Education Provided Safety M7 PT-IP Assessment and Plan Start: 06/13/23 12:52 Freq: NEEDED Status: Active Protocol: Document 06/13/23 10:00 AB (Rec: 06/13/23 13:10 AB [email or web address]) PT Summary Assessment and Plan Potential Rehabilitation Potential Fair Status of Condition at Evaluation Evolving Summary Impairments Pain,ROM,Strength,Balance, Coordination,Sensation,Tone, Cognition,Bed Mobility, Transfers,Gait,Activity Tolerance Assessment Summary pt is an 87 y/o F who presented to the ED with c/o SOB and weakness. pt admitted for PNA and UTI. pt requiring min A with mobility and ambulation using FWW. pt unable to ambulate much and only completed ~ 10 ft with c/ o feeling tired. d/c plan depending on progress: SNF vs home with assist and HHPT. will continue to assess progress. Goals Bed Mobility Goal Independent Transfer Goal Independent,Front Wheeled Walker,Four Wheeled Walker Gait Goal Independent,Front Wheel Walker ,Four Wheel Walker Gait Distance 200 Other Goals improve transfers and ambulation without AD 300 ft mod I up/down 2 steps without rails SBA Days to Meet Goals 10 Frequency of Treatment Frequency Of Treatment Once a Day Treatment Plan Physical Therapy Treatment Plan Bed Mobility Training,Transfer Training,Gait Training, Therapeutic Exercise,Balance Retraining,Discharge Planning, Hot or Cold Pack,Neuromuscular Re-ed,Coordination Retraining Precautions Other Precautions O2 sat Recommendations To Nursing Amount of Assist Needed 1 Person Assist Discharge Recommendations PT Discharge Recommendations Home with Assistance,Home Health,SNF Rehab,Home vs SNF Transportation Needs at Discharge Private Vehicle,Wheelchair/ Cabulance
[2023-06-13 10:27] LABS: Troponin I 0.028 ng/mL (0.01-0.034)
[2023-06-13] MEDS: ALBUTEROL/IPRATROPIUM 3 ML AMPUL INH ×2 (11:21→21:35)
[2023-06-13 12:24] LABS: COVID19 -Nasal RAPID Negative (Negative)
--- NOTE | 2023-06-13 13:41 | CM.DANOTE ---
Initial DCP Assessment Note Pt is an 87 yo female, resident of [place], arrives with shortness of breath, weakness and confusion, admitted for management of UTI and PNA PCP: Catie Storm Payer: [facility] Reviewed chart, patient had 10 visits to ER in 2021, both ER and admissions. 2022 shows 9 ER and admissions. Met w/patient to introduce self and role. Patient has two of her sons, Bunny ([place]) and Calderon ([place]) at bedside visiting. Patient has 7 adult children in total, all spread across the country. Daughter Yuliya Pereira in [place] has DPOA, requested this ppk if available. Patient lives with her son Herminio who is blind. Patient pays the utilities. Patient and son Herminio co-exist pretty well according to son Bunny. Patient agrees and says she has been indp w/ADLs, driving, up until recently. Patient plans to return home upon discharge, says her daughter Tiera will be visiting soon from [place] to assist as needed. Discussed alf care, provided Medicaid application and Senior Resource Guide. Discussed home health services and patient agreeable, preference is for [facility]. FAHAD Holden, will refer to [facility] on this patient's behalf. F2F and HH order has been completed. PT has cleared patient for return home w/HH, family involvement and monitoring is strongly recommended. No barriers identified at this time to patient's safe discharge home w/family to assist w/HH services- HH RN/PT/OT/AUTO SEAT COVER INSTALLER ([facility] close outpatient f/u recommended. CM team will plan to follow closely for coordination of discharge plan. BLAS Hernandez Discharge Planning/Care Management CM Discharge Assessment Start: 06/13/23 13:35 Freq: Status: Active Protocol: Document 06/13/23 13:36 SEAN (Rec: 06/13/23 13:41 SEAN [id number]) Discharge Planning Assessment Assigned Family Support Worker BLAS Almendarez DPTIFFANIE/Assigned Designee Name Yuliya Pereira, daughter/DPOA ( [place]) Contact Information [phone] Advance Directives? Yes: POLST Advance Directives on File No History Provided By Patient,Family Member,Medical Record Prior Living Arrangements House Household Members children Comment Son Herminio is blind, does not drive, able to manage his needs within his home Type of transporation used prior to Drives own vehicle admit Independent with ADL's Yes Is patient alert and oriented? Yes Needs Assistance With Meal Prep,Home Chores / Shopping Patient/Family Preference Home with Home Health Barriers to Discharge No Comment expect home when stable for same. Discharge Plan Home with Home Health Transportation Arrangement Likely son Bunny who lives in [place] can transport home, possibly gnosticist friend Referrals Initiated Home Health Additional Comment [facility] If patient plan is home with home health Yes : Has signed face to face form been completed? Medicare Choice List Provided Yes SNF/HH Preference [facility]
[2023-06-13] MEDS: cefTRIAXone 1,000 MG in SODIUM CHLORIDE 0.9% 100 ML 200 MG IV (14:15)
--- NOTE | 2023-06-13 15:40 | OT.IPNOTE ---
Pt too tired to try to get up again as already been up with PT and nursing. Pt feels that she will be able to care for herself when able to feel better and regain her energy. NO charge
[2023-06-13] MEDS: guaiFENesin Solution 100 MG/5 ML UDC 200 MG PO (17:04)
[2023-06-13] MEDS: ATORVASTATIN 20 MG TABLET 40 MG PO (20:25)
[2023-06-14] VITALS (10 sets, daily range): BP systolic 130–155; BP diastolic 49–67; PULSE 67–85; RESP 18–23; TEMP 36.3–37.1; O2SAT 90–97
[2023-06-14] MEDS: ACETAMINOPHEN 325 MG TABLET 650 MG PO ×4 (00:38→21:22)
[2023-06-14] MEDS: guaiFENesin Solution 100 MG/5 ML UDC 200 MG PO ×2 (00:43→04:25)
[2023-06-14] MEDS: ALBUTEROL 2.5 MG/3 ML NEB (ADULT) INH (03:10)
[2023-06-14 05:19] LABS: Add Manual Diff / Slide Review NO; Basophils Absolute Auto 100 /uL (0-100); Basophils Percent Auto 0.7 % (0-2); Eosinophils Absolute Auto 200 /uL (0-450); Eosinophils Percent Auto 1.4 % (2-4); Hematocrit 26.4 % (36-46); Hemoglobin 8.9 g/dL (12.0-16.0); Lymphocytes Absolute Auto 700 /uL (1100-4500); Lymphocytes Percent Auto 5.7 % (25-40); Mean Corpuscular HGB Conc 33.6 % (30-36); Mean Corpuscular Hemoglobin 28.3 PG (26-34); Monocytes Absolute Auto 700 /uL (0-900); Monocytes Percent Auto 6.4 % (3-14); Neutrophils Absolute Auto 9800 /uL (1500-7000); Neutrophils Percent Auto 85.8 % (50-75); Platelet Count 214 X10^3/uL (150-400); Red Blood Cell Count 3.14 X10^6/uL (4.0-5.2); Red Cell Distribution Width 14.9 % (11.6-14.8); White Blood Cell Count 11.4 X10^3/uL (4.5-11.0)
[2023-06-14 05:27] LABS: BUN Creatinine Ratio 16.2 (6-22); Blood Urea Nitrogen 12 mg/dL (7-17); Carbon Dioxide 26 mmol/L (22-32); Chloride 103 mmol/L (98-107); Estimated Glomerular Filt Rate > 60 mL/min (>60); Glucose 119 mg/dL (80-110); HEMOLYSIS < 15 (0-50); Potassium 3.7 mmol/L (3.4-5.1); Sodium 135 mmol/L (137-145)
[2023-06-14] MEDS: LEVOTHYROXINE 88 MCG TABLET PO (07:03)
[2023-06-14] MEDS: ISOSORBIDE MONONITRATE ER 30 MG TABLET 240 MG PO (07:03)
--- NOTE | 2023-06-14 08:29 | PM.PN.1 ---
Subjective Subjective Date Patient Seen: 06/14/23 Interval history: She is seen in her room here today to follow-up her pneumonia, elevated D-dimer and pulmonary edema. Her voice is very weak. She complains of right lower chest pain which along with her D-dimer of [address] angio of the chest. On review of the chest x-ray films today I see bilateral fluffy infiltrates and significant cardiomegaly. Her hemoglobin has risen from 8.6 up to 8.9. The white blood count is 11.4. Her saturation is 93% on 3 L nasal cannula. She tells me that she lives with her son in [place]. Exam Vital Signs (past 8 hours): - 06/14/23 03:14 06/14/23 04:00 06/14/23 04:00 Temperature 98.7 F Pulse Rate 72 Respiratory Rate 23 Blood Pressure 130/51 L Pulse Oximetry 90 L 93 Oxygen Delivery Method Nasal Cannula Oxygen Flow Rate 2 1 3 Oxygen Delivery Method Nasal Cannula Oxygen Flow Rate 3 Narrative Exam Narrative: She is oriented and alert but has a very weak voice. Heart is regular rate and rhythm without murmur Lungs are clear to auscultation bilaterally Extremities have no ankle edema Objective Labs 06/14/23 04:49 06/14/23 04:49 Labs: Laboratory Results - last 24 hr 06/13/23 06/13/23 06/14/23 09:48 11:02 04:49 WBC 11.4 H RBC 3.14 L Hgb 8.9 L Hct 26.4 L MCV 84.0 MCH 28.3 MCHC 33.6 RDW 14.9 H Plt Count 214 Neut % (Auto) 85.8 H Lymph % (Auto) 5.7 L [place] % (Auto) 6.4 Eos % (Auto) 1.4 L Baso % (Auto) 0.7 Neut # (Auto) 9800 H Lymph # (Auto) 700 L [place] # (Auto) 700 Eos # (Auto) 200 Baso # (Auto) 100 Sodium 135 L Potassium 3.7 Chloride 103 Carbon Dioxide 26 BUN 12 Creatinine 0.74 Estimated GFR > 60 BUN/Creatinine Ratio 16.2 Glucose 119 H Calcium 9.0 Troponin I 0.028 SARS-CoV-2 (PCR) Negative COUNT INCLUDES THE [facility] Medical History Bilateral carpal tunnel syndrome Aneurysm of infrarenal abdominal aorta Hyperlipidemia 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 Pneumonia, present on admission and active. 2. Urinary tract infection, present on admission and active. -urine culture with pansensitive E coli -ceftriaxone IV 3. Sepsis with fever, respiratory rate of 24, [place] [address] and source of pneumonia and urinary tract infection. Present on admission and active. 4. COPD without exacerbation, present on admission and stable. 5. CAD with history of CABG, present on admission and stable. 6. Acute hypoxic respiratory failure, present on admission and active. 7. Anemia, new and active. Will follow. 8. Possible demand ischemia, new and active. We will repeat troponin and check ECG. WBC is improved, her hemoglobin is low at 8.9. Troponin 0.037. Urine culture with pansensitive E coli, blood cultures negative, respiratory PCR panel negative. Plan: -Continue IV ceftriaxone for pneumonia and urinary tract infection, monitor vital signs and mental status, monitor oxygen demand. Follow cultures. Level of care: The patient is do not resuscitate, [id number]. She wants to keep things medically quite simple. Anticipate discharge home in 1-2 days. Quality VTE Deep Vein Thrombosis/Pulmonary Embolism Present on Admission: No
[2023-06-14] MEDS: ALBUTEROL/IPRATROPIUM 3 ML AMPUL INH ×2 (08:30→20:15)
[2023-06-14] MEDS: HEPARIN 5,000 UNIT/ML VIAL 5000 UNIT SUBCUT ×2 (08:50→21:22)
[2023-06-14] MEDS: dilTIAZem CD 120 MG CAP PO (08:51)
[2023-06-14] MEDS: CLOPIDOGREL 75 MG TABLET PO (08:51)
[2023-06-14] MEDS: METOPROLOL ER 25 MG TABLET PO (08:51)
[2023-06-14] MEDS: ASPIRIN EC 81 MG TABLET PO (08:51)
[2023-06-14] MEDS: lisinopriL 20 MG TABLET PO (08:54)
[2023-06-14] MEDS: AZITHROMYCIN 250 MG TABLET 500 MG PO (08:54)
--- NOTE | 2023-06-14 11:20 | PT.IPTN ---
Current Diagnoses Sepsis, unspecified organism (06/12/23) Physical Therapy Treatment Note M2 PT-IP Current Condition Start: 06/13/23 12:52 Freq: NEEDED Status: Active Protocol: Document 06/13/23 10:00 AB (Rec: 06/13/23 13:10 AB [id number]) Physical Therapy Current Condition Current Condition Evaluation Date 06/13/23 Treatment Diagnosis PNA; UTI; COPD; difficulty in walking Onset Date 06/12/23 M3 PT-IP Subjective Start: 06/13/23 12:52 Freq: NEEDED Status: Active Protocol: Document 06/14/23 12:10 TS (Rec: 06/14/23 12:29 TS [id number]) Subjective Physical Therapy Visit Type Type Treatment Note Visit Start Time 11:20 Visit Stop Time 11:58 Total Visit Minutes 38 Number of CAMP GUARD Visits 1 Physical Therapy Visit Comments Patient Comments Pt found resting in bed, reports feeling weak and pain in the R side of her chest, she is agreeable to PT. Therapy Pain Assessment Pain When Pain Assessed At Rest Pain Present Pain Present Pain Reported Location Right Chest Description Aching,Pressure Pain Behaviors Facial Grimacing,Holding Area, Moaning,Wincing Pain Management Techniques Modification of Treatment,Re- positioning M4 PT-IP Mobility and Gait Start: 06/13/23 12:52 Freq: NEEDED Status: Active Protocol: Document 06/14/23 12:10 TS (Rec: 06/14/23 12:29 TS [id number]) PT-Bed Mobility Assessment Supine to Sit Supine to Sit Minimal Assistance,Bedrails Scooting Scooting to Edge of Bed Contact Guard Assistance PT-Transfer Assessment Sit to and From Stand Sit to and from Stand Contact Guard Assistance,1 Person Assistance,Use of Upper Extremities Equipment Transfer Assistive Device Gait Belt,Front Wheeled Walker Orthotic/Prosthetic Devices or Brace: No Comments Mobility Comments Pt found resting in bed, Spo2 on 3L 94% at rest, HR 84. Supine to sit HOB elevated 50D Mari for uprighting trunk. She scooted to EOB CGA with BUE support puhsing from bed. She performed sit to stand CGA with FWW, pt is slow to stand and c/o feeling weak. She ambulated in room CGA ~20 w/ FWW with slow step to gait, she requested to have rest break sitting in chair. Pt reported needing to use commode. She performed stand step pivot transfer to commode CGA with cues for turning in FWW. Pt had small hard BM, therapist assisted with pericare. Stand pivot back to chair CGA with FWW. Pt continued to c/o pain in the R side of her chest. She was left in chair, chair alarm on, all needs met, RN notified. Gait Assessment Gait Gait Assistance Required: Contact Guard Assist,1 Person Assist Distance (Feet) 20 Able to Maintain Weight Bearing Status Yes During Gait Assistive Devices Assistive Device Gait Belt,Front Wheeled Walker Orthotic/Prosthetic Devices or Brace: No Gait Deviations General Gait Pattern Decreased Stride Length, Decreased Feet Clearance Factors Limiting Gait Function Factors Limiting Gait Function Decreased Activity Tolerance, Decreased Strength,Pain,Poor Balance,Poor Safety Awareness, Respiratory Distress Comments Gait Comments See mobility comments. PT-Balance Assessment Sitting Balance and Reactions Static Sitting Balance Ability Good Dynamic Sitting Balance Ability Good Standing Balance and Reactions Static Standing Balance Ability Fair Dynamic Standing Balance Ability Fair Device Used FWW M5 PT-IP Objective Assessments Start: 06/13/23 12:52 Freq: NEEDED Status: Active Protocol: Document 06/13/23 10:00 AB (Rec: 06/13/23 13:10 AB [id number]) Orientation Orientation/Cognition Level of Alertness Alert Orientation Name,Place,Situation Language Function Ability Hard of Hearing Safety Awareness Decreased Safety Awareness Gross Range of Motion Lower Extremity ROM Assessment Within Functional Limits Strength Lower Extremity Strength Assessment Within Functional Limits Muscle Tone Muscle Tone WNL Yes M6 PT-IP Treatment Start: 06/13/23 12:52 Freq: NEEDED Status: Active Protocol: Document 06/14/23 12:10 TS (Rec: 06/14/23 12:29 TS [id number]) Physical Therapy Treatment Education Education Provided Safety M7 PT-IP Assessment and Plan Start: 06/13/23 12:52 Freq: NEEDED Status: Active Protocol: Document 06/14/23 12:10 TS (Rec: 06/14/23 12:29 TS [id number]) PT Summary Assessment and Plan Potential Rehabilitation Potential Fair Summary Impairments Pain,ROM,Strength,Balance, Coordination,Sensation,Tone, Cognition,Bed Mobility, Transfers,Gait,Activity Tolerance Progress Towards Goals Slow Progress due to Pain,Slow Progress due to Medical Issues,Slow Progress due to Activity Tolerance Assessment Summary Lindsay is making slow progress with her mobility. She is Mari -CGA for bed mobility with HOB elevated and UE support. She performed sit to stand x3 from multiple surfaces CGA with FWW. She progressed her gait to ~20' in room CGA with FWW, she quickly fatigues with gait requiring seated rest break. Her [place] to activity is low and is a falls risks. PT continues to recommend Home w/ HHPT vs SNF at this time. Goals Bed Mobility Goal Independent Transfer Goal Independent,Front Wheeled Walker,Four Wheeled Walker Gait Goal Independent,Front Wheel Walker ,Four Wheel Walker Gait Distance 200 Other Goals improve transfers and ambulation without AD 300 ft mod I up/down 2 steps without rails SBA Days to Meet Goals 10 Frequency of Treatment Frequency Of Treatment Once a Day Treatment Plan Physical Therapy Treatment Plan Bed Mobility Training,Transfer Training,Gait Training, Therapeutic Exercise,Balance Retraining,Discharge Planning, Hot or Cold Pack,Neuromuscular Re-ed,Coordination Retraining Other Recommendations and Next Treatment Continue to work on transfer Focus with AD, progress gait. Precautions Other Precautions O2 sat Recommendations To Nursing Amount of Assist Needed 1 Person Assist Discharge Recommendations PT Discharge Recommendations Home with Assistance,Home Health,SNF Rehab,Home vs SNF Transportation Needs at Discharge Private Vehicle,Wheelchair/ Cabulance
--- NOTE | 2023-06-14 12:40 | DI.CT.S_ITS ---
PROCEDURE: CT ANGIO CHEST PE PROTOCOL INDICATIONS: chest pain TECHNIQUE: After the administration of intravenous contrast, 2 mm thick sections acquired from the pulmonary apices to the posterior costophrenic angles. 3-dimensional maximum intensity projection (MIP) coronal and sagittal reformats were then acquired through the thorax. For radiation dose reduction, the following was used: automated exposure control, adjustment of mA and/or kV according to patient size. COMPARISON: [facility], CT, CT ANGIO CHEST PE PROTOCOL, 04/14/2022, 12:50. FINDINGS: Image quality: Excellent. Pulmonary arteries: Pulmonary arteries are normal in size, and demonstrate no intraluminal filling defects to suggest central pulmonary embolism. Lungs and pleura: Advanced pulmonary emphysema and multifocal right-sided pulmonary infiltrates present. Left apical septal thickening. Small right-sided pleural effusion Mediastinum: Mediastinal adenopathy measures up to 1.3 cm. Dense aortic atherosclerotic vascular calcification without aneurysm. Coronary artery bypass graft appears patent. Dense atherosclerotic vascular calcification of the [place] vessel. Midline sternal wires noted. Heart size is enlarged. Bones and chest wall: No suspicious bony lesions. Ribs and thoracic spine appear intact throughout. Thyroid gland unremarkable. No axillary or supraclavicular adenopathy. Abdomen: Visualized upper abdominal solid organs appear normal in the early arterial phase of enhancement. IMPRESSION: No evidence of pulmonary embolism, aortic dissection or aneurysm. Multifocal right-sided pulmonary infiltrates, consistent with pneumonia. Underlying advanced emphysematous changes bilaterally. Cardiomegaly, bypass graft, mediastinal adenopathy. Approved by: Misha Orellana M.D. on 06/14/2023 at 15:07
[2023-06-14] MEDS: cefTRIAXone 1,000 MG in SODIUM CHLORIDE 0.9% 100 ML 200 MG IV (14:55)
[2023-06-14] MEDS: ATORVASTATIN 20 MG TABLET 40 MG PO (21:22)
[2023-06-15] VITALS (10 sets, daily range): BP systolic 139–157; BP diastolic 54–67; PULSE 71–86; RESP 18–20; TEMP 36.3–36.6; O2SAT 92–97
[2023-06-15] MEDS: ALBUTEROL 2.5 MG/3 ML NEB (ADULT) INH (00:10)
[2023-06-15 05:44] LABS: Add Manual Diff / Slide Review NO; Basophils Absolute Auto 100 /uL (0-100); Basophils Percent Auto 0.6 % (0-2); Eosinophils Absolute Auto 300 /uL (0-450); Eosinophils Percent Auto 2.5 % (2-4); Hemoglobin 9.2 g/dL (12.0-16.0); Lymphocytes Absolute Auto 700 /uL (1100-4500); Lymphocytes Percent Auto 6.7 % (25-40); Mean Corpuscular Hemoglobin 28.6 PG (26-34); Monocytes Absolute Auto 600 /uL (0-900); Monocytes Percent Auto 5.1 % (3-14); Neutrophils Absolute Auto 9400 /uL (1500-7000); Neutrophils Percent Auto 85.1 % (50-75); Platelet Count 263 X10^3/uL (150-400); Red Blood Cell Count 3.22 X10^6/uL (4.0-5.2); Red Cell Distribution Width 15.4 % (11.6-14.8)
[2023-06-15 05:49] LABS: BUN Creatinine Ratio 17.1 (6-22); Blood Urea Nitrogen 12 mg/dL (7-17); Calcium 9.6 mg/dL (8.4-10.2); Carbon Dioxide 27 mmol/L (22-32); Chloride 102 mmol/L (98-107); Estimated Glomerular Filt Rate > 60 mL/min (>60); Glucose 137 mg/dL (80-110); HEMOLYSIS < 15 (0-50); Potassium 3.9 mmol/L (3.4-5.1); Sodium 136 mmol/L (137-145)
[2023-06-15] MEDS: ISOSORBIDE MONONITRATE ER 30 MG TABLET 240 MG PO (06:48)
[2023-06-15] MEDS: LEVOTHYROXINE 88 MCG TABLET PO (06:48)
[2023-06-15] MEDS: ACETAMINOPHEN 325 MG TABLET 650 MG PO ×2 (07:02→13:20)
[2023-06-15] MEDS: HEPARIN 5,000 UNIT/ML VIAL 5000 UNIT SUBCUT ×2 (08:25→20:21)
[2023-06-15] MEDS: lisinopriL 20 MG TABLET PO (08:25)
[2023-06-15] MEDS: METOPROLOL ER 25 MG TABLET PO (08:25)
[2023-06-15] MEDS: CLOPIDOGREL 75 MG TABLET PO (08:26)
[2023-06-15] MEDS: ASPIRIN EC 81 MG TABLET PO (08:26)
[2023-06-15] MEDS: dilTIAZem CD 120 MG CAP PO (08:26)
[2023-06-15] MEDS: AZITHROMYCIN 250 MG TABLET 500 MG PO (08:26)
--- NOTE | 2023-06-15 09:26 | PT.IPTN ---
Current Diagnoses Sepsis, unspecified organism (06/12/23) Physical Therapy Treatment Note M2 PT-IP Current Condition Start: 06/13/23 12:52 Freq: NEEDED Status: Active Protocol: Document 06/13/23 10:00 AB (Rec: 06/13/23 13:10 AB [id number]) Physical Therapy Current Condition Current Condition Evaluation Date 06/13/23 Treatment Diagnosis PNA; UTI; COPD; difficulty in walking Onset Date 06/12/23 M3 PT-IP Subjective Start: 06/13/23 12:52 Freq: NEEDED Status: Active Protocol: Document 06/15/23 10:04 KJ (Rec: 06/15/23 10:12 KJ [id number]) Subjective Physical Therapy Visit Type Type Treatment Note Visit Start Time 08:53 Visit Stop Time 09:26 Total Visit Minutes 33 Physical Therapy Visit Comments Patient Comments Pt reports constant fatigue. She feels this episode on pneumonia is taking longer to recover from than in the past Patient Goals To go home with son Therapy Pain Assessment Pain When Pain Assessed constant Location Right Chest Description Aching Pain Behaviors Facial Grimacing,Holding Area Pain Management Techniques Re-positioning M4 PT-IP Mobility and Gait Start: 06/13/23 12:52 Freq: NEEDED Status: Active Protocol: Document 06/15/23 10:04 KJ (Rec: 06/15/23 10:12 KJ [id number]) PT-Bed Mobility Assessment Rolling Level of Assist Contact Guard Assistance Supine to Sit Supine to Sit Contact Guard Assistance PT-Transfer Assessment Sit to and From Stand Sit to and from Stand Contact Guard Assistance Equipment Transfer Assistive Device Front Wheeled Walker Gait Assessment Gait Gait Assistance Required: Contact Guard Assist Distance (Feet) 20 Assistive Devices Assistive Device Front Wheeled Walker Gait Deviations General Gait Pattern Decreased Stride Length,Narrow Based Gait Factors Limiting Gait Function Factors Limiting Gait Function Decreased Activity Tolerance Comments Gait Comments Able to ambulate in room maintaining O2 sats at or above 96% PT-Balance Assessment Sitting Balance and Reactions Static Sitting Balance Ability Good Dynamic Sitting Balance Ability Good Standing Balance and Reactions Static Standing Balance Ability Good Dynamic Standing Balance Ability Good M5 PT-IP Objective Assessments Start: 06/13/23 12:52 Freq: NEEDED Status: Active Protocol: Document 06/13/23 10:00 AB (Rec: 06/13/23 13:10 AB [id number]) Orientation Orientation/Cognition Level of Alertness Alert Orientation Name,Place,Situation Language Function Ability Hard of Hearing Safety Awareness Decreased Safety Awareness Gross Range of Motion Lower Extremity ROM Assessment Within Functional Limits Strength Lower Extremity Strength Assessment Within Functional Limits Muscle Tone Muscle Tone WNL Yes M6 PT-IP Treatment Start: 06/13/23 12:52 Freq: NEEDED Status: Active Protocol: Document 06/15/23 10:04 KJ (Rec: 06/15/23 10:12 KJ [id number]) Physical Therapy Treatment Exercises Exercises Ankle Pumps,Seated Knee Flexion/Extension,Shoulder Flexion Education Education Provided Safety M7 PT-IP Assessment and Plan Start: 06/13/23 12:52 Freq: NEEDED Status: Active Protocol: Document 06/15/23 10:04 KJ (Rec: 06/15/23 10:12 KJ [id number]) PT Summary Assessment and Plan Potential Rehabilitation Potential Good Status of Condition at Evaluation Evolving Summary Impairments Activity Tolerance Progress Towards Goals Progressing Toward Goals Recommendations To Nursing Amount of Assist Needed 1 Person Assist Discharge Recommendations PT Discharge Recommendations Home with Assistance,Home Health
[2023-06-15] MEDS: ALBUTEROL/IPRATROPIUM 3 ML AMPUL INH ×2 (10:18→20:35)
[2023-06-15] MEDS: guaiFENesin Solution 100 MG/5 ML UDC 200 MG PO (11:28)
[2023-06-15] MEDS: cefTRIAXone 1,000 MG in SODIUM CHLORIDE 0.9% 100 ML 200 MG IV (13:21)
[2023-06-15] MEDS: CODEINE/GUAIFENESIN LIQUID 5ML UDC 5 ML PO ×2 (14:18→20:21)
--- NOTE | 2023-06-15 17:44 | P.PN_ITS ---
Subjective Subjective Interval history: Patient appears very fatigued from coughing. She says when God takes me, I'm ready. Now down to her baseline 2L O2. Exam Vital Signs (past 8 hours): - 06/15/23 09:49 06/15/23 10:21 06/15/23 12:00 Temperature 98 F Pulse Rate 73 72 Respiratory Rate 20 Blood Pressure 157/63 H Pulse Oximetry 94 Oxygen Delivery Method Nasal Cannula Oxygen Flow Rate 2 3 Oxygen Delivery Method Nasal Cannula Oxygen Flow Rate 3 Narrative Exam Narrative: She is oriented and alert but has a very weak voice. Coughing frequently. Heart is regular rate and rhythm without murmur Lungs are clear to auscultation bilaterally Extremities have no ankle edema Objective Labs 06/15/23 05:08 06/15/23 05:08 Labs: Laboratory Results - last 24 hr 06/15/23 05:08 WBC 11.0 RBC 3.22 L Hgb 9.2 L Hct 27.0 L MCV 84.0 MCH 28.6 MCHC 34.0 RDW 15.4 H Plt Count 263 Neut % (Auto) 85.1 H Lymph % (Auto) 6.7 L [place] % (Auto) 5.1 Eos % (Auto) 2.5 Baso % (Auto) 0.6 Neut # (Auto) 9400 H Lymph # (Auto) 700 L [place] # (Auto) 600 Eos # (Auto) 300 Baso # (Auto) 100 Sodium 136 L Potassium 3.9 Chloride 102 Carbon Dioxide 27 BUN 12 Creatinine 0.70 Estimated GFR > 60 BUN/Creatinine Ratio 17.1 Glucose 137 H Calcium 9.6 PFSH Medical History Bilateral carpal tunnel syndrome Aneurysm of infrarenal abdominal aorta Hyperlipidemia 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 Acute on chronic hypoxic resp failure 2/2 pneumonia, present on admission and active. -patient on baseline 2L, was up to 3L -now back to baseline O2 -continue rocephin and azithro -respiratory PCR panel negative. 2. Urinary tract infection, present on admission and active. -urine culture with pansensitive E coli -ceftriaxone IV 3. Sepsis with fever, respiratory rate of 24, [place] [address] and source of pneumonia and urinary tract infection. Present on admission and active. 4. COPD without exacerbation, present on admission and stable. 5. CAD with history of CABG, present on admission and stable. Continue DAPT. 6. H/o of recent NSTEMI 7. Anemia, new and active. Will follow. Hgb stable. No evidence of bleeding. 8. Demand ischemia, new and active. ECG reassuring. Troponins slightly elevated and now normal. Level of care: The patient is do not resuscitate, [id number]. She wants to keep things medically quite simple. Anticipate discharge home with in 1-2 days. Quality VTE Deep Vein Thrombosis/Pulmonary Embolism Present on Admission: No
[2023-06-15] MEDS: ATORVASTATIN 20 MG TABLET 40 MG PO (20:21)
[2023-06-15] MEDS: SODIUM CHLORIDE 0.9% FLUSH 10 ML IV (20:23)
[2023-06-16] VITALS (9 sets, daily range): BP systolic 147–169; BP diastolic 56–85; PULSE 66–83; RESP 15–30; TEMP 36.1–36.8; O2SAT 94–98
[2023-06-16] MEDS: ACETAMINOPHEN 325 MG TABLET 650 MG PO ×4 (00:22→20:27)
[2023-06-16] MEDS: LEVOTHYROXINE 88 MCG TABLET PO (05:43)
--- NOTE | 2023-06-16 05:47 | PC.NURSE ---
pt heart rate dropped down to the 20's while sleeping on the O2 sat monitor probe, when auscultated with stethoscope HR ws in the mid 60's, regular with a murmur. pt asymptomatic.
[2023-06-16 06:08] LABS: BUN Creatinine Ratio 15.5 (6-22); Blood Urea Nitrogen 11 mg/dL (7-17); Calcium 9.8 mg/dL (8.4-10.2); Carbon Dioxide 27 mmol/L (22-32); Chloride 103 mmol/L (98-107); Estimated Glomerular Filt Rate > 60 mL/min (>60); Glucose 100 mg/dL (80-110); HEMOLYSIS < 15 (0-50); Potassium 4.3 mmol/L (3.4-5.1); Sodium 137 mmol/L (137-145)
[2023-06-16 06:09] LABS: Add Manual Diff / Slide Review NO; Basophils Absolute Auto 100 /uL (0-100); Basophils Percent Auto 0.8 % (0-2); Eosinophils Absolute Auto 300 /uL (0-450); Eosinophils Percent Auto 3.4 % (2-4); Hematocrit 27.6 % (36-46); Hemoglobin 9.3 g/dL (12.0-16.0); Lymphocytes Absolute Auto 1100 /uL (1100-4500); Lymphocytes Percent Auto 11.8 % (25-40); Mean Corpuscular HGB Conc 33.7 % (30-36); Mean Corpuscular Hemoglobin 28.3 PG (26-34); Mean Corpuscular Volume 83.9 fL (80-100); Monocytes Absolute Auto 700 /uL (0-900); Monocytes Percent Auto 7.7 % (3-14); Neutrophils Absolute Auto 6900 /uL (1500-7000); Neutrophils Percent Auto 76.3 % (50-75); Platelet Count 299 X10^3/uL (150-400); Red Blood Cell Count 3.29 X10^6/uL (4.0-5.2); Red Cell Distribution Width 15.1 % (11.6-14.8)
[2023-06-16] MEDS: ISOSORBIDE MONONITRATE ER 30 MG TABLET 240 MG PO (06:45)
[2023-06-16] MEDS: CODEINE/GUAIFENESIN LIQUID 5ML UDC 5 ML PO (06:49)
[2023-06-16] MEDS: ASPIRIN EC 81 MG TABLET PO (08:28)
[2023-06-16] MEDS: dilTIAZem CD 120 MG CAP PO (08:28)
[2023-06-16] MEDS: CLOPIDOGREL 75 MG TABLET PO (08:28)
[2023-06-16] MEDS: HEPARIN 5,000 UNIT/ML VIAL 5000 UNIT SUBCUT ×2 (08:28→20:27)
[2023-06-16] MEDS: METOPROLOL ER 25 MG TABLET PO (08:30)
[2023-06-16] MEDS: lisinopriL 20 MG TABLET PO (08:30)
[2023-06-16] MEDS: SODIUM CHLORIDE 0.9% FLUSH 10 ML IV ×2 (09:38→20:29)
[2023-06-16] MEDS: BUDESONIDE 0.5 MG/2 ML NEB INH (09:56)
[2023-06-16] MEDS: ALBUTEROL/IPRATROPIUM 3 ML AMPUL INH (09:56)
--- NOTE | 2023-06-16 10:50 | PT.IPTN ---
Current Diagnoses Sepsis, unspecified organism (06/12/23) Physical Therapy Treatment Note M2 PT-IP Current Condition Start: 06/13/23 12:52 Freq: NEEDED Status: Active Protocol: Document 06/16/23 12:06 SP (Rec: 06/16/23 12:41 SP [id number]) Physical Therapy Current Condition Current Condition Evaluation Date 06/13/23 Treatment Diagnosis PNA; UTI; COPD; difficulty in walking Onset Date 06/12/23 M3 PT-IP Subjective Start: 06/13/23 12:52 Freq: NEEDED Status: Active Protocol: Document 06/16/23 12:06 SP (Rec: 06/16/23 12:41 SP [id number]) Subjective Physical Therapy Visit Type Type Treatment Note Visit Start Time 10:13 Visit Stop Time 10:50 Total Visit Minutes 37 Notes Vitals during tx: Elevated supine: RUE BP 151/64 HR 75 SaO2 96% on 2L With mobility using FWW/4WW: SaO2 88-91% on 2L Number of BELLY DUMP DRIVER Visits 1 Physical Therapy Visit Comments Patient Comments Pt agreeable to working with PT. During tx I am not as good moving around as I used to be, alot more tired. I did get a 4WW that haven't use yet at home. Patient Goals To go home with blind son to assist her but also has a 2nd son that may be able to come help. M4 PT-IP Mobility and Gait Start: 06/13/23 12:52 Freq: NEEDED Status: Active Protocol: Document 06/16/23 12:06 SP (Rec: 06/16/23 12:41 SP [id number]) PT-Bed Mobility Assessment Supine to Sit Supine to Sit Standby Assistance,Head of Bed Elevated Sit to Supine Sit to Supine Standby Assistance,Head of Bed Elevated Scooting Scooting to Edge of Bed Standby Assistance,Contact Guard Assistance PT-Transfer Assessment Sit to and From Stand Sit to and from Stand Standby Assistance,Contact Guard Assistance,Use of Upper Extremities Equipment Transfer Assistive Device Gait Belt,Front Wheeled Walker ,4 Wheeled Walker Orthotic/Prosthetic Devices or Brace: No Transfers Transfer Destination Chair,Wheelchair Transfer Technique stand step pivot, ambulated w/ FWW and 4WW Transfer Ability Level of Assist Standby Assistance,Contact Guard Assistance,1 Person Assistance,Use of Upper Extremities Comments Mobility Comments Pt completed elevated sup<>sit 45 deg with out use bed rail for home assimulation. Education for proper use of 4WW: brake mgt pre stand/sit and position full backing up, hand placement push from chair or wc arm/reach back BUE for stability safety asc/descend stand/sit, decreased cues but still required for safety when tiring. bed>chair CGA w/ FWW, gait chair around room back to chair 30 ft w/ FWW, chair to into hallway w/c 20 ft 4WW (BELLY DUMP DRIVER managed O2 tubing initially) CG/close SBA, mod cues slower pacing w/ 4WW for safety due to is quicker movement, pt reported is alot more work and tiring to get around with 4WW. Pt requires tubing mgt suggested use of FWW for now and pt willing to have 1 despensed to use if going home. Pt wheeled to stairs, completed 3 step, step to patterning Min/Mod A x1 + PERSONAL FITNESS MANAGER on R due to decreased LE strength with LUE L rail post reach outside KEIKO (assimulate home) then further attached to post top to assimulate home ( has a pic in her phone to utilize visual). Pt unable to ambulate further distance after stair mgt. SPT use FWW w /c>chair close SBA and assist with O2 tubing. Assiste reclined in chair and all needs in reach. BELLY DUMP DRIVER discussed with pt still pretty weak and suggest SNF vs 24/7 HHPT with caregiver training with son/or faith members assist to allow for assess safe DC home. She understands stair mgt is hard and needs the support would be good for who will be with her to do with her in IH for safety then vs go to rehab and work get stronger before going home. She prefered going home and havign someone come in and work together if can do together. Gait Assessment Gait Gait Assistance Required: Standby Assistance,Contact Guard Assist,1 Person Assist Distance (Feet) 20 Able to Maintain Weight Bearing Status Yes During Gait Assistive Devices Assistive Device Gait Belt,Front Wheeled Walker ,4 Wheeled Walker Orthotic/Prosthetic Devices or Brace: No Gait Deviations General Gait Pattern Antalgic,Decreased Stride Length,Flexed Trunk,Narrow Based Gait Factors Limiting Gait Function Factors Limiting Gait Function Decreased Activity Tolerance, Decreased Strength,Difficulty Following Directions,Poor Balance,Poor Safety Awareness, Respiratory Distress Comments Gait Comments Pt safest with fWW vs 4WW, little unsteady gait/ trunk little sway but no LOB, alot effort breath and decrease strength manage O2 tubing with FWW/4WW, CG/Close SBA. O2 stats decrease 88% with SOB during mobility. Breath recovery sit rest but decreased endurance can't walk far. Stair Climbing Assessment Evaluation Level of Assist On Stairs Minimal Assistance,Moderate Assistance,1 Person Assistance Devices Stair Climbing Assistive Devices Left Railing Technique/Endurance Stair Climbing Direction Ascend and Descend Stair Climbing Technique Step to Step Number of Steps Climbed 3 Stair Climbing Set # Repetitions (reps) 1 Comments Stair Climbing Comments Min/Mod A L HR initially, L HR and PERSONAL FITNESS MANAGER on R Min A step to patterning, max cues for sequencing when needed. this is really hard, I think my family can help me though, only need get in house then ok . BELLY DUMP DRIVER reminded need go to appts as well. PT-Balance Assessment Sitting Balance and Reactions Static Sitting Balance Ability Good Dynamic Sitting Balance Ability Good Standing Balance and Reactions Static Standing Balance Ability Good Dynamic Standing Balance Ability Fair Device Used FWW/4WW M5 PT-IP Objective Assessments Start: 06/13/23 12:52 Freq: NEEDED Status: Active Protocol: Document 06/13/23 10:00 AB (Rec: 06/13/23 13:10 AB [id number]) Orientation Orientation/Cognition Level of Alertness Alert Orientation Name,Place,Situation Language Function Ability Hard of Hearing Safety Awareness Decreased Safety Awareness Gross Range of Motion Lower Extremity ROM Assessment Within Functional Limits Strength Lower Extremity Strength Assessment Within Functional Limits Muscle Tone Muscle Tone WNL Yes M6 PT-IP Treatment Start: 06/13/23 12:52 Freq: NEEDED Status: Active Protocol: Document 06/16/23 12:06 SP (Rec: 06/16/23 12:41 SP [id number]) Physical Therapy Treatment Education Education Provided Safety M7 PT-IP Assessment and Plan Start: 06/13/23 12:52 Freq: NEEDED Status: Active Protocol: Document 06/16/23 12:06 SP (Rec: 06/16/23 12:41 SP [id number]) PT Summary Assessment and Plan Potential Rehabilitation Potential Good Status of Condition at Evaluation Evolving Summary Impairments Strength,Balance,Cognition,Bed Mobility,Transfers,Activity Tolerance Progress Towards Goals Progressing Toward Goals,Slow Progress due to Medical Issues ,Slow Progress due to Activity Tolerance Assessment Summary Pt is making progress but slowly, decreased activity tolerance and strength, increased respiratory rate with activity, decrease SaO2 88% on 2L with mobility FWW/ 4WW CG/close SBA with assist O2 tubing, stop rest short distances for breath recovery low- min 90s on 2L, unsteady w /4WW has at home never used, better with FWW and pt agreed should use for now. Mod A on stair mgt L HR/ PERSONAL FITNESS MANAGER on R. Recommend SNF vs HHPT 17/03 and caregiver training with whom help her at home with pt in agreement I am alot weaker than I realized. Assess mobility with caregiver (sons/ faith friends), would need set up when cleared medically for location DC. Will continue to assess progress. Goals Bed Mobility Goal Independent Transfer Goal Independent,Front Wheeled Walker,Four Wheeled Walker Gait Goal Independent,Front Wheel Walker ,Four Wheel Walker Gait Distance 200 Other Goals improve transfers and ambulation without AD 300 ft mod I up/down 2 steps without rails SBA Days to Meet Goals 10 Frequency of Treatment Frequency Of Treatment Once a Day Treatment Plan Physical Therapy Treatment Plan Bed Mobility Training,Transfer Training,Gait Training, Therapeutic Exercise,Balance Retraining,Discharge Planning, Hot or Cold Pack,Neuromuscular Re-ed,Coordination Retraining Precautions Other Precautions O2 sat Recommendations To Nursing Amount of Assist Needed 1 Person Assist Discharge Recommendations PT Discharge Recommendations Home with 17/03 Assist Available,Home Health,SNF Rehab,Home vs SNF Equipment Needed for Home Before FWW, not safe with 4WW- pt Discharge stated willing to access via [facility] to dispense to her if going home and understands might be an expense to her if not covered by insurance. Transportation Needs at Discharge Private Vehicle,Wheelchair/ Cabulance
[2023-06-16] MEDS: cefTRIAXone 1,000 MG in SODIUM CHLORIDE 0.9% 100 ML 200 MG IV (14:42)
--- NOTE | 2023-06-16 15:43 | OT.IP.EVAL ---
Current Diagnoses Sepsis, unspecified organism (06/12/23) Past Medical History (Last Reviewed 06/12/23 @ 11:58 by Jean Ta DO) Aneurysm of infrarenal abdominal aorta Bilateral carpal tunnel syndrome CAD (coronary artery disease) COPD (chronic obstructive pulmonary disease) with emphysema Elevated TSH HTN (hypertension) Hyperlipidemia Unstable angina Valvular heart disease Surgical History (Last Reviewed 05/17/23 @ 07:19 by Walker Roe MD) H/O hysterectomy with oophorectomy H/O three vessel coronary artery bypass Hx of heart artery stent Status post cholecystectomy Occupational Therapy Inpatient Evaluation/Re-Eval M1 PT/OT-IP Prior Functional Status Start: 06/13/23 12:52 Freq: NEEDED Status: Active Protocol: Document 06/16/23 15:47 CGR (Rec: 06/16/23 16:12 CGR [id number]) Medical Review Prior Functional Status Medical History Reviewed No Communication able to make needs known Mobility and Gait pt stated that she is independent with all mobilities and ambulation without AD. still able to drive prior to hospitalization . Activities of Daily Living and IADL's Pt is IND in all ADLs and IADLs at baseline. Prior Functional Level (Other details) pt uses home O2 @ 2L/min Social History Household Members children Living Arrangements House Number of Floors (Floors) One Floor Number of Stairs To Enter/Railing? 3 steps to enter without railing. 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 [facility] M2 OT-IP Current Condition Start: 06/16/23 15:46 Freq: Status: Active Protocol: Document 06/16/23 15:47 CGR (Rec: 06/16/23 16:12 CGR [id number]) Occupational Therapy Current Condition Current Condition Evaluation Date 06/16/23 Treatment Diagnosis PNA, UTI, Sepsis Diagnosis Onset Date 06/12/23 M3 OT- IP Subjective and Pain Start: 06/16/23 15:46 Freq: Status: Active Protocol: Document 06/16/23 15:47 CGR (Rec: 06/16/23 16:12 CGR [id number]) OT- Subjective Occupational Therapy Visit Type Type Initial Evaluation Visit Start Time 15:22 Visit Stop Time 15:43 Total Visit Minutes 21 Notes Attempted to see x2 in AM. Occupational Therapy Visit Comments Patient Comments I am jsut very tired. OT Pain Assessment Pain When Pain Assessed At Rest Pain Present Pain Present Denied Pain M4 OT- IP ADL's Start: 06/16/23 15:46 Freq: Status: Active Protocol: Document 06/16/23 15:47 CGR (Rec: 06/16/23 16:12 CGR [id number]) OT [id number] Comments OT Self-Feeding Comments not meal time OT ADL-Grooming General Evaluation Grooming Ability Independent Areas Needing Assistance Face Washing Comments OT Grooming Comments standing at sink OT ADL-Oral Care Comments Oral Care Comments not performed, pt states she brushed her teeth this AM OT ADL-Dressing Comments OT Dressing Comments not performed OT ADL-Toileting General Evaluation Toileting Ability Standby Assistance Comments OT Toileting Comments Simulated on toilet. Pt still has gambino. OT ADL-Bathing Comments OT Bathing Comments not performed, pt too fatigued . M5 OT- IP IADL's Start: 06/16/23 15:46 Freq: Status: Active Protocol: Document 06/16/23 15:47 CGR (Rec: 06/16/23 16:12 CGR [id number]) OT-Instrumental Activities of Daily Living Deficits IADL Deficits Identified No Deficits Home Safety Awareness Awareness of Need for Assistance at Home Good Awareness Ability to Problem Solve Emergency Able to Problem Solve Situations Medication Management Medication Management No Deficits Identified Money Management Money Management No Deficits Identified Meal Preparation Meal Preparation Caregiver Provides Assist Auto Service Instructor Auto Service Instructor Caregiver Provides Assist Driving Driving Comments 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 M6 OT- IP Functional Cognition Start: 06/16/23 15:46 Freq: Status: Active Protocol: Document 06/16/23 15:47 CGR (Rec: 06/16/23 16:12 CGR [id number]) Cognitive Factors Limiting Selfcare Function Cognitive Ability Level of Alertness Alert Patient Orientation Name,Age,Birthday,Month,Date, Year,Day of Week,Place, Situation Attention Span Ability Capable of Focused Attention, Capable of Sustained Attention Ability to Follow Commands Able to Follow Multi-Step Commands OT- Vision and Hearing OT- Hearing Assessment OT- Hearing Assessment WFL OT- Vision Assessment Visual Acuity Glasses For Reading Visual Attentiveness WFL Occular Pursuits WFL Visual Convergence WFL M7 OT- IP Mobility and Balance Start: 06/16/23 15:46 Freq: Status: Active Protocol: Document 06/16/23 15:47 CGR (Rec: 06/16/23 16:12 CGR [id number]) OT-Transfer Assessment Sit to and From Stand Sit to and from Stand Standby Assistance Transfers Transfer Ability Standby Assistance Technique Transfer Destination Chair,Toilet Transfer Technique Stand Step Pivot Devices Transfer Assistive Devices Gait Belt,Front Wheeled Walker Comments Mobility Comments Pt states she doesn't think she can ambulate without the walker. Pt ambualted to the toilet and sink then returned to the chair. Pt left sitting up in chair. OT- Balance Assessment Sitting Balance and Reactions Static Sitting Balance Ability Good Dynamic Sitting Balance Ability Good M8 OT- IP Objective Assessments Start: 06/16/23 15:46 Freq: Status: Active Protocol: Document 06/16/23 15:47 CGR (Rec: 06/16/23 16:12 CGR [id number]) OT Gross Range of Motion Upper Extremity Range of Motion Assessment Within Functional Limits OT Strength Upper Extremity Strength Assessment Within Functional Limits Comments Strength Comments grossly 4-/5 OT- Coordination Assessment Upper Extremity Finger to Nose Test Within Functional Limits Finger Tapping Test Within Functional Limits OT-Muscle Tone Assessment Muscle Tone WNL Yes OT Sensation Assessment Edema Edema Absent M9 OT- IP Assessment and Plan Start: 06/16/23 15:46 Freq: Status: Active Protocol: Document 06/16/23 15:47 CGR (Rec: 06/16/23 16:12 CGR [id number]) OT Summary Assessment and Plan Potential Rehabilitation Potential Good Analytic Complexity at Evaluation Low Summary OT Impairments Strength,Balance,Functional Mobility,Dressing,Toileting, Bathing,Toilet Transfers, Shower Transfers,Activity Tolerance Progress Towards Goals Progressing Toward Goals Assessment Summary Pt presents as a low complexity evaluation s/p admit for PNA. Pt is fatigued and is mostly impacted by her endurance. Pt is hopeful that she will improve for a discharge home. She is refusing SNF. Goals Grooming Goal Independent Dressing Goal Independent Toileting Goal Independent Bathing Goal Independent Toilet Transfer Goal Independent Shower Transfer Goal Independent Days to Meet Goals 10 Frequency of Treatment Frequency Of Treatment Once a Day Treatment Plan OT Treatment Plan ADL Training,Functional Mobility,Patient/Family Education,Discharge Planning Other Treatment Recommendations and Next shower, energy conservation, Treatment Focus endurance Discharge Recommendations OT Discharge Recommendations Home with Assistance Transportation Needs at Discharge Private Vehicle
--- NOTE | 2023-06-16 20:10 | P.PN_ITS ---
Subjective Subjective Date Patient Seen: 06/16/23 Time Patient Seen: 08:00 Interval history: She continues to feel quite weak and short of breath worse than normal. Exam Vital Signs (past 8 hours): - 06/16/23 18:00 Temperature 97.5 F L Pulse Rate 83 Respiratory Rate 25 H Blood Pressure 169/85 H Pulse Oximetry 96 Oxygen Flow Rate 2 Fraction of Inspired Oxygen 28 SaO2/FiO2 Ratio 335 Oxygen Delivery Method Nasal Cannula Oxygen Flow Rate 2 Narrative Exam Narrative: GEN: frail, chronically ill appearing CV: regular rate and rhythm PULM: clear, coughing frequently EXT: no edema Objective Labs 06/16/23 05:15 06/16/23 05:15 Labs: Laboratory Results - last 24 hr 06/16/23 05:15 WBC 9.0 RBC 3.29 L Hgb 9.3 L Hct 27.6 L MCV 83.9 MCH 28.3 MCHC 33.7 RDW 15.1 H Plt Count 299 Neut % (Auto) 76.3 H Lymph % (Auto) 11.8 L [place] % (Auto) 7.7 Eos % (Auto) 3.4 Baso % (Auto) 0.8 Neut # (Auto) 6900 Lymph # (Auto) 1100 [place] # (Auto) 700 Eos # (Auto) 300 Baso # (Auto) 100 Sodium 137 Potassium 4.3 Chloride 103 Carbon Dioxide 27 BUN 11 Creatinine 0.71 Estimated GFR > 60 BUN/Creatinine Ratio 15.5 Glucose 100 Calcium 9.8 PFSH Medical History Bilateral carpal tunnel syndrome Aneurysm of infrarenal abdominal aorta Hyperlipidemia 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 Acute on chronic hypoxic resp failure 2/2 pneumonia, present on admission and active. -patient on baseline 2L, was up to 3L, but still more short of breath than normal -now back to baseline O2 -continue rocephin and azithro -respiratory PCR panel negative. 2. Urinary tract infection, present on admission and active. -urine culture with pansensitive E coli -ceftriaxone IV 3. Sepsis with fever, respiratory rate of 24, [place] [address] and source of pneumonia and urinary tract infection. Present on admission and active. 4. COPD without exacerbation, present on admission and stable. 5. CAD with history of CABG, present on admission and stable. Continue DAPT. 6. H/o of recent NSTEMI 7. Anemia, new and active. Will follow. Hgb stable. No evidence of bleeding. 8. Demand ischemia, new and active. ECG reassuring. Troponins slightly elevated and now normal. Quality VTE Deep Vein Thrombosis/Pulmonary Embolism Present on Admission: No
[2023-06-16] MEDS: ATORVASTATIN 20 MG TABLET 40 MG PO (20:27)
[2023-06-17] VITALS (9 sets, daily range): BP systolic 153–177; BP diastolic 62–81; PULSE 60–84; RESP 16–20; TEMP 36.1–36.6; O2SAT 2–98
[2023-06-17] MEDS: ACETAMINOPHEN 325 MG TABLET 650 MG PO (03:43)
[2023-06-17] MEDS: LEVOTHYROXINE 88 MCG TABLET PO (05:15)
[2023-06-17 05:43] LABS: Add Manual Diff / Slide Review NO; Basophils Absolute Auto 100 /uL (0-100); Basophils Percent Auto 0.9 % (0-2); Eosinophils Absolute Auto 300 /uL (0-450); Eosinophils Percent Auto 4.4 % (2-4); Hematocrit 29.1 % (36-46); Lymphocytes Absolute Auto 1000 /uL (1100-4500); Lymphocytes Percent Auto 13.4 % (25-40); Mean Corpuscular HGB Conc 34.4 % (30-36); Mean Corpuscular Hemoglobin 28.4 PG (26-34); Mean Corpuscular Volume 82.4 fL (80-100); Monocytes Absolute Auto 600 /uL (0-900); Monocytes Percent Auto 7.8 % (3-14); Neutrophils Absolute Auto 5500 /uL (1500-7000); Neutrophils Percent Auto 73.5 % (50-75); Platelet Count 341 X10^3/uL (150-400); Red Blood Cell Count 3.53 X10^6/uL (4.0-5.2); White Blood Cell Count 7.4 X10^3/uL (4.5-11.0)
[2023-06-17 06:38] LABS: BUN Creatinine Ratio 16.9 (6-22); Blood Urea Nitrogen 11 mg/dL (7-17); Calcium 9.9 mg/dL (8.4-10.2); Carbon Dioxide 28 mmol/L (22-32); Chloride 103 mmol/L (98-107); Estimated Glomerular Filt Rate > 60 mL/min (>60); Glucose 109 mg/dL (80-110); HEMOLYSIS < 15 (0-50); Potassium 4.3 mmol/L (3.4-5.1); Sodium 135 mmol/L (137-145)
[2023-06-17] MEDS: CODEINE/GUAIFENESIN LIQUID 5ML UDC 5 ML PO ×2 (06:51→18:50)
[2023-06-17] MEDS: ISOSORBIDE MONONITRATE ER 30 MG TABLET 240 MG PO (07:00)
[2023-06-17] MEDS: METOPROLOL ER 25 MG TABLET PO (08:24)
[2023-06-17] MEDS: ASPIRIN EC 81 MG TABLET PO (08:24)
[2023-06-17] MEDS: HEPARIN 5,000 UNIT/ML VIAL 5000 UNIT SUBCUT ×2 (08:24→21:31)
[2023-06-17] MEDS: lisinopriL 20 MG TABLET PO (08:24)
[2023-06-17] MEDS: CLOPIDOGREL 75 MG TABLET PO (08:24)
[2023-06-17] MEDS: dilTIAZem CD 120 MG CAP PO (08:24)
[2023-06-17] MEDS: SODIUM CHLORIDE 0.9% FLUSH 10 ML IV ×2 (08:25→21:31)
[2023-06-17] MEDS: ALBUTEROL/IPRATROPIUM 3 ML AMPUL INH ×2 (08:36→19:55)
[2023-06-17 09:59] LABS: Alanine Aminotransferase 26 IU/L (<35); Albumin 3.4 g/dL (3.5-5.0); Alkaline Phosphatase 108 U/L (38-126); Aspartate Aminotransferase 42 IU/L (14-36); Bilirubin Total 0.4 mg/dL (0.2-1.3); Bilirubin Unconjugated 0.2 mg/dL (0.0-1.1); Globulin 3.3 g/dL (1.7-4.1); HEMOLYSIS 17 (0-50); Lipase 57 U/L (23-300); Total Protein 6.7 g/dL (6.3-8.2)
[2023-06-17 10:11] LABS: Troponin I 0.013 ng/mL (0.01-0.034)
--- NOTE | 2023-06-17 11:02 | PT.IPTN ---
Current Diagnoses Sepsis, unspecified organism (06/12/23) Physical Therapy Treatment Note M2 PT-IP Current Condition Start: 06/13/23 12:52 Freq: NEEDED Status: Active Protocol: Document 06/16/23 12:06 SP (Rec: 06/16/23 12:41 SP [id number]) Physical Therapy Current Condition Current Condition Evaluation Date 06/13/23 Treatment Diagnosis PNA; UTI; COPD; difficulty in walking Onset Date 06/12/23 M3 PT-IP Subjective Start: 06/13/23 12:52 Freq: NEEDED Status: Active Protocol: Document 06/17/23 11:36 TS (Rec: 06/17/23 11:52 TS [id number]) Subjective Physical Therapy Visit Type Type Treatment Note Visit Start Time 11:02 Visit Stop Time 11:30 Total Visit Minutes 28 Notes Vitals: BP 146/62, Spo2 at rest 93% @2L, HR 79. Number of WELD LAY OUT WORKER Visits 2 Physical Therapy Visit Comments Patient Comments Pt found resting in chair, she is concerned about how long it is taking for her to get better. Continues to report pressure/pain in chest with gait, pt agreeable to PT. M4 PT-IP Mobility and Gait Start: 06/13/23 12:52 Freq: NEEDED Status: Active Protocol: Document 06/17/23 11:36 TS (Rec: 06/17/23 11:52 TS [id number]) PT-Transfer Assessment Sit to and From Stand Sit to and from Stand Standby Assistance,Use of Upper Extremities Equipment Transfer Assistive Device Gait Belt,Front Wheeled Walker Orthotic/Prosthetic Devices or Brace: No Comments Mobility Comments Sit to stand from chair SBA with BUE support pushing from arms of chair with FWW. She ambulated to restroom ~10' SBA /CGA with FWW with slow step thru gait. After use of toilet she ambulated ~40' in room SBA/CGA w/FWW, reports fatigue and pressure/pain in chest. Spo2 after mobility 92% on 2L. Pt was left in room with all needs met, friend visiting her in room, chair alarm on. Gait Assessment Gait Gait Assistance Required: Standby Assistance,Contact Guard Assist,1 Person Assist Distance (Feet) 50 Able to Maintain Weight Bearing Status Yes During Gait Assistive Devices Assistive Device Gait Belt,Front Wheeled Walker Orthotic/Prosthetic Devices or Brace: No Gait Deviations General Gait Pattern Antalgic,Decreased Stride Length,Flexed Trunk,Narrow Based Gait Factors Limiting Gait Function Factors Limiting Gait Function Decreased Activity Tolerance, Decreased Strength,Difficulty Following Directions,Poor Balance,Poor Safety Awareness, Respiratory Distress Comments Gait Comments See mobility comments. PT-Balance Assessment Sitting Balance and Reactions Static Sitting Balance Ability Good Dynamic Sitting Balance Ability Good Standing Balance and Reactions Static Standing Balance Ability Good Dynamic Standing Balance Ability Fair Device Used FWW M5 PT-IP Objective Assessments Start: 06/13/23 12:52 Freq: NEEDED Status: Active Protocol: Document 06/13/23 10:00 AB (Rec: 06/13/23 13:10 AB [id number]) Orientation Orientation/Cognition Level of Alertness Alert Orientation Name,Place,Situation Language Function Ability Hard of Hearing Safety Awareness Decreased Safety Awareness Gross Range of Motion Lower Extremity ROM Assessment Within Functional Limits Strength Lower Extremity Strength Assessment Within Functional Limits Muscle Tone Muscle Tone WNL Yes M6 PT-IP Treatment Start: 06/13/23 12:52 Freq: NEEDED Status: Active Protocol: Document 06/17/23 11:36 TS (Rec: 06/17/23 11:52 TS [id number]) Physical Therapy Treatment Education Education Provided Safety M7 PT-IP Assessment and Plan Start: 06/13/23 12:52 Freq: NEEDED Status: Active Protocol: Document 06/17/23 11:36 TS (Rec: 06/17/23 11:52 TS [id number]) PT Summary Assessment and Plan Potential Rehabilitation Potential Good Summary Impairments Strength,Balance,Cognition,Bed Mobility,Transfers,Activity Tolerance Progress Towards Goals Progressing Toward Goals,Slow Progress due to Medical Issues ,Slow Progress due to Activity Tolerance Assessment Summary Lindsay continues to make some progress with her mobility but remains limited by poor activity tolerance and ongoing medical issues. She is SBA for sit to stands with FWW, demonstrates good carryover of sit to stand technique. She progressed her gait to ~40' in room SBA/CGA w/FWW, quickly becomes fatigued and continues to reports pressure/pain in R side of chest. PT continues to recommend home 17/03 vs SNF at this time. Goals Bed Mobility Goal Independent Transfer Goal Independent,Front Wheeled Walker,Four Wheeled Walker Gait Goal Independent,Front Wheel Walker ,Four Wheel Walker Gait Distance 200 Other Goals improve transfers and ambulation without AD 300 ft mod I up/down 2 steps without rails SBA Days to Meet Goals 10 Frequency of Treatment Frequency Of Treatment Once a Day Treatment Plan Physical Therapy Treatment Plan Bed Mobility Training,Transfer Training,Gait Training, Therapeutic Exercise,Balance Retraining,Discharge Planning, Hot or Cold Pack,Neuromuscular Re-ed,Coordination Retraining Precautions Other Precautions O2 sat Recommendations To Nursing Amount of Assist Needed 1 Person Assist Discharge Recommendations PT Discharge Recommendations Home with 17/03 Assist Available,Home Health,SNF Rehab,Home vs SNF Equipment Needed for Home Before FWW Discharge Transportation Needs at Discharge Private Vehicle,Wheelchair/ Cabulance
--- NOTE | 2023-06-17 12:45 | OT.IP.TRT ---
Current Diagnoses Sepsis, unspecified organism (06/12/23) Occupational Therapy Treatment Note M2 OT-IP Current Condition Start: 06/16/23 15:46 Freq: Status: Active Protocol: Document 06/16/23 15:47 CGR (Rec: 06/16/23 16:12 CGR [id number]) Occupational Therapy Current Condition Current Condition Evaluation Date 06/16/23 Treatment Diagnosis PNA, UTI, Sepsis Diagnosis Onset Date 06/12/23 M3 OT- IP Subjective and Pain Start: 06/16/23 15:46 Freq: Status: Active Protocol: Document 06/17/23 12:43 CCC (Rec: 06/17/23 12:55 CCC [id number]) OT- Subjective Occupational Therapy Visit Type Type Treatment Note Visit Start Time 12:43 Visit Stop Time 12:51 Total Visit Minutes 8 Occupational Therapy Visit Comments Patient Comments Pt initially wanting to shower and states was not happy with her soup that was tomato basil versus just tomato. Pt agreed to have some Ensure, which was okay'd by nursing for pt to have. Patient/Caregiver Goals To go home. OT Pain Assessment Pain When Pain Assessed At Rest Pain Present Pain Present Denied Pain M4 OT- IP ADL's Start: 06/16/23 15:46 Freq: Status: Active Protocol: Document 06/16/23 15:47 CGR (Rec: 06/16/23 16:12 CGR [id number]) OT [id number] Comments OT Self-Feeding Comments not meal time OT ADL-Grooming General Evaluation Grooming Ability Independent Areas Needing Assistance Face Washing Comments OT Grooming Comments standing at sink OT ADL-Oral Care Comments Oral Care Comments not performed, pt states she brushed her teeth this AM OT ADL-Dressing Comments OT Dressing Comments not performed OT ADL-Toileting General Evaluation Toileting Ability Standby Assistance Comments OT Toileting Comments Simulated on toilet. Pt still has gambino. OT ADL-Bathing Comments OT Bathing Comments not performed, pt too fatigued . M5 OT- IP IADL's Start: 06/16/23 15:46 Freq: Status: Active Protocol: Document 06/16/23 15:47 CGR (Rec: 06/16/23 16:12 CGR [id number]) OT-Instrumental Activities of Daily Living Deficits IADL Deficits Identified No Deficits Home Safety Awareness Awareness of Need for Assistance at Home Good Awareness Ability to Problem Solve Emergency Able to Problem Solve Situations Medication Management Medication Management No Deficits Identified Money Management Money Management No Deficits Identified Meal Preparation Meal Preparation Caregiver Provides Assist Wharf Helper Wharf Helper Caregiver Provides Assist Driving Driving Comments 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 M6 OT- IP Functional Cognition Start: 06/16/23 15:46 Freq: Status: Active Protocol: Document 06/17/23 12:43 CCC (Rec: 06/17/23 12:55 CCC [id number]) Cognitive Factors Limiting Selfcare Function Cognitive Ability Level of Alertness Alert Patient Orientation Name,Age,Birthday,Month,Date, Year,Day of Week,Place, Situation Attention Span Ability Capable of Focused Attention, Capable of Sustained Attention Ability to Follow Commands Able to Follow Multi-Step Commands Cognitive Comments Cognitive Assessment Comments Pt states just very tired today and decided best to try to take a shower tomorrow. Able to go over energy conservation with pt for ADL and IADL needs. Pt able to states good understanding. M9 OT- IP Assessment and Plan Start: 06/16/23 15:46 Freq: Status: Active Protocol: Document 06/16/23 15:47 CGR (Rec: 06/16/23 16:12 CGR [id number]) OT Summary Assessment and Plan Potential Rehabilitation Potential Good Analytic Complexity at Evaluation Low Summary OT Impairments Strength,Balance,Functional Mobility,Dressing,Toileting, Bathing,Toilet Transfers, Shower Transfers,Activity Tolerance Progress Towards Goals Progressing Toward Goals Assessment Summary Pt presents as a low complexity evaluation s/p admit for PNA. Pt is fatigued and is mostly impacted by her endurance. Pt is hopeful that she will improve for a discharge home. She is refusing SNF. Goals Grooming Goal Independent Dressing Goal Independent Toileting Goal Independent Bathing Goal Independent Toilet Transfer Goal Independent Shower Transfer Goal Independent Days to Meet Goals 10 Frequency of Treatment Frequency Of Treatment Once a Day Treatment Plan OT Treatment Plan ADL Training,Functional Mobility,Patient/Family Education,Discharge Planning Other Treatment Recommendations and Next shower, energy conservation, Treatment Focus endurance Discharge Recommendations OT Discharge Recommendations Home with Assistance Transportation Needs at Discharge Private Vehicle
[2023-06-17] MEDS: cefTRIAXone 1,000 MG in SODIUM CHLORIDE 0.9% 100 ML 200 MG IV (13:41)
--- NOTE | 2023-06-17 14:18 | PM.PN.1 ---
Subjective Subjective Date Patient Seen: 06/17/23 Time Patient Seen: 08:00 Interval history: She appears worried and anxious, saying that her stomach is bothering her. Her breathing remains at baseline. She has pleuritic pain on her right side where her consolidation is. Exam Vital Signs (past 8 hours): - 06/17/23 08:24 06/17/23 08:24 06/17/23 08:36 Temperature 97.6 F Pulse Rate 74 75 77 Respiratory Rate 20 Blood Pressure 177/81 H 177/81 H 177/81 H Pulse Oximetry 97 Oxygen Delivery Method Oxygen Flow Rate 2 Fraction of Inspired Oxygen 06/17/23 08:37 06/17/23 13:26 Temperature 98 F Pulse Rate 84 80 Respiratory Rate 20 19 Blood Pressure 160/76 H Pulse Oximetry 98 98 Oxygen Delivery Method Nasal Cannula Oxygen Flow Rate 2 2 Fraction of Inspired Oxygen 28 Fraction of Inspired Oxygen 28 SaO2/FiO2 Ratio 350 Oxygen Delivery Method Nasal Cannula Oxygen Flow Rate 2 Narrative Exam Narrative: GEN: frail, chronically ill appearing CV: regular rate and rhythm PULM: clear, coughing frequently ABD: soft, nontender EXT: no edema Objective Labs 06/17/23 05:08 06/17/23 05:08 Labs: Laboratory Results - last 24 hr 06/17/23 06/17/23 05:08 09:37 WBC 7.4 RBC 3.53 L Hgb 10.0 L Hct 29.1 L MCV 82.4 MCH 28.4 MCHC 34.4 RDW 15.0 H Plt Count 341 Neut % (Auto) 73.5 Lymph % (Auto) 13.4 L [place] % (Auto) 7.8 Eos % (Auto) 4.4 H Baso % (Auto) 0.9 Neut # (Auto) 5500 Lymph # (Auto) 1000 L [place] # (Auto) 600 Eos # (Auto) 300 Baso # (Auto) 100 Sodium 135 L Potassium 4.3 Chloride 103 Carbon Dioxide 28 BUN 11 Creatinine 0.65 Estimated GFR > 60 BUN/Creatinine Ratio 16.9 Glucose 109 Calcium 9.9 Total Bilirubin 0.4 Conjugated Bilirubin 0.0 Unconjugated Bilirubin 0.2 AST 42 H ALT 26 Alkaline Phosphatase 108 Troponin I 0.013 Total Protein 6.7 Albumin 3.4 L Globulin 3.3 Albumin/Globulin Ratio 1.0 Lipase 57 D [facility] Medical History Bilateral carpal tunnel syndrome Aneurysm of infrarenal abdominal aorta Hyperlipidemia 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 Acute on chronic hypoxic resp failure 2/2 pneumonia, present on admission and active. -patient on baseline 2L, was up to 3L, but still more short of breath than normal -now back to baseline O2 -continue rocephin and azithro -respiratory PCR panel negative. 2. Urinary tract infection, present on admission and active. -urine culture with pansensitive E coli -ceftriaxone IV 3. Abdominal pain -likely secondary to cough -abdominal palpation showed no tenderness -LFTs, lipase, troponin all unremarkble 4. Sepsis with fever, respiratory rate of 24, [place] [address] and source of pneumonia and urinary tract infection. Present on admission and resolved 5. COPD without exacerbation, present on admission and stable. 6 CAD with history of CABG, present on admission and stable. Continue DAPT. 7. H/o of recent NSTEMI 8. Anemia, new and active. Will follow. Hgb stable. No evidence of bleeding. 9. Demand ischemia, new and active. ECG reassuring. Troponins slightly elevated and now normal. Quality VTE Deep Vein Thrombosis/Pulmonary Embolism Present on Admission: No
[2023-06-17] MEDS: ATORVASTATIN 20 MG TABLET 40 MG PO (21:31)
[2023-06-18] VITALS (9 sets, daily range): BP systolic 142–177; BP diastolic 55–76; PULSE 58–86; RESP 16–22; TEMP 36.1–36.5; O2SAT 93–98
[2023-06-18] MEDS: CYCLOBENZAPRINE 10 MG TABLET PO (02:26)
[2023-06-18] MEDS: ACETAMINOPHEN 325 MG TABLET 650 MG PO (02:27)
[2023-06-18] MEDS: ALBUTEROL 2.5 MG/3 ML NEB (ADULT) INH (02:50)
[2023-06-18] MEDS: LEVOTHYROXINE 88 MCG TABLET PO (05:51)
[2023-06-18 06:23] LABS: Add Manual Diff / Slide Review NO; Basophils Absolute Auto 100 /uL (0-100); Eosinophils Absolute Auto 200 /uL (0-450); Eosinophils Percent Auto 3.5 % (2-4); Hematocrit 27.3 % (36-46); Hemoglobin 9.4 g/dL (12.0-16.0); Lymphocytes Absolute Auto 1100 /uL (1100-4500); Lymphocytes Percent Auto 15.5 % (25-40); Mean Corpuscular HGB Conc 34.4 % (30-36); Mean Corpuscular Hemoglobin 28.4 PG (26-34); Mean Corpuscular Volume 82.6 fL (80-100); Monocytes Absolute Auto 500 /uL (0-900); Monocytes Percent Auto 7.1 % (3-14); Neutrophils Absolute Auto 5100 /uL (1500-7000); Neutrophils Percent Auto 72.9 % (50-75); Platelet Count 354 X10^3/uL (150-400); Red Blood Cell Count 3.31 X10^6/uL (4.0-5.2)
[2023-06-18 06:30] LABS: BUN Creatinine Ratio 15.9 (6-22); Blood Urea Nitrogen 11 mg/dL (7-17); Calcium 10.1 mg/dL (8.4-10.2); Carbon Dioxide 30 mmol/L (22-32); Chloride 102 mmol/L (98-107); Estimated Glomerular Filt Rate > 60 mL/min (>60); Glucose 117 mg/dL (80-110); HEMOLYSIS < 15 (0-50); Potassium 4.2 mmol/L (3.4-5.1); Sodium 136 mmol/L (137-145)
[2023-06-18] MEDS: ISOSORBIDE MONONITRATE ER 30 MG TABLET 240 MG PO (06:58)
[2023-06-18] MEDS: ALBUTEROL/IPRATROPIUM 3 ML AMPUL INH ×2 (08:23→20:00)
[2023-06-18] MEDS: CLOPIDOGREL 75 MG TABLET PO (08:39)
[2023-06-18] MEDS: dilTIAZem CD 120 MG CAP PO (08:39)
[2023-06-18] MEDS: METOPROLOL ER 25 MG TABLET PO (08:39)
[2023-06-18] MEDS: ASPIRIN EC 81 MG TABLET PO (08:39)
[2023-06-18] MEDS: lisinopriL 20 MG TABLET PO (08:40)
[2023-06-18] MEDS: HEPARIN 5,000 UNIT/ML VIAL 5000 UNIT SUBCUT ×2 (08:40→21:04)
[2023-06-18] MEDS: SODIUM CHLORIDE 0.9% FLUSH 10 ML IV ×2 (08:41→21:04)
--- NOTE | 2023-06-18 08:58 | PT-IP ANOTE ---
pt refused to work with PT this morning, reports she is tired. PT will check back in with pt later today.
--- NOTE | 2023-06-18 09:25 | OT.IPNOTE ---
Attempted to see pt for a shower today as pt agreed yesterday to shower at 9AM today. Pt states not feeling well and having chest pressure, nursing notified. Able to help recliner the recliner back for pt and able to give her more warm blankets. No charge.
[2023-06-18 11:09] LABS: Troponin I < 0.012 ng/mL (0.01-0.034)
--- NOTE | 2023-06-18 11:11 | DI.RAD.S_ITS ---
PROCEDURE: XR CHEST 1V INDICATIONS: interval change? TECHNIQUE: One view of the chest was acquired. COMPARISON: [facility], CT, CT ANGIO CHEST PE PROTOCOL, 06/14/2023, 15:26. [facility], CR, XR CHEST 1V, 06/13/2023, 8:38. [facility], CR, XR CHEST 1V, 06/12/2023, 11:58. FINDINGS: Surgical changes and devices: Sternotomy. Lungs and pleura: Similar right middle lung zone opacity. Similar peripheral reticulation. Stable small right pleural effusion. Mediastinum: Mediastinal contours appear normal. Heart size is normal. Bones and chest wall: No suspicious bony lesions. Overlying soft tissues appear unremarkable. IMPRESSION: Stable right lung zone airspace opacity. Dictated by: Amarjit Duenas M.D. on 06/18/2023 at 12:29 Approved by: Amarjit Duenas M.D. on 06/18/2023 at 12:31
[2023-06-18 11:39] LABS: NT-proBNP (BNP-Adult 18+) 9060 pg/mL (<450)
--- NOTE | 2023-06-18 11:45 | PT.IPTN ---
Current Diagnoses Sepsis, unspecified organism (06/12/23) Physical Therapy Treatment Note M2 PT-IP Current Condition Start: 06/13/23 12:52 Freq: NEEDED Status: Active Protocol: Document 06/16/23 12:06 SP (Rec: 06/16/23 12:41 SP [id number]) Physical Therapy Current Condition Current Condition Evaluation Date 06/13/23 Treatment Diagnosis PNA; UTI; COPD; difficulty in walking Onset Date 06/12/23 M3 PT-IP Subjective Start: 06/13/23 12:52 Freq: NEEDED Status: Active Protocol: Document 06/18/23 12:08 TS (Rec: 06/18/23 12:21 TS [id number]) Subjective Physical Therapy Visit Type Type Treatment Note Visit Start Time 11:45 Visit Stop Time 12:06 Total Visit Minutes 21 Number of VIRTUALIZATION ARCHITECT Visits 3 Physical Therapy Visit Comments Patient Comments Pt found resting in chair, reports she is feeling better than previously in the morning , agreeable to PT. M4 PT-IP Mobility and Gait Start: 06/13/23 12:52 Freq: NEEDED Status: Active Protocol: Document 06/18/23 12:08 TS (Rec: 06/18/23 12:21 TS [id number]) PT-Transfer Assessment Sit to and From Stand Sit to and from Stand Standby Assistance,Use of Upper Extremities Equipment Transfer Assistive Device Gait Belt,Front Wheeled Walker ,4 Wheeled Walker Orthotic/Prosthetic Devices or Brace: No Comments Mobility Comments Pt found resting in chair on 2L of o2, Spo2 95%. Sit to stand SBA with BUE support pushing from arms of chair and use of FWW. She ambulated ~30 ' in room with FWW SBA with slow step thru gait, required assistance in managing o2 line . She performed steps x4 ascending/descending SBA with use of counter top for support on L side. Pt sat back in chair, for rest break, Spo2 92 % on 2L. Sit to stand with 4WW SBA, pt ambulated ~20' with 4WW SBA, had no buckling or LOB. Pt was left back in chair , all needs met. Gait Assessment Gait Gait Assistance Required: Standby Assistance,1 Person Assist Distance (Feet) 50 Able to Maintain Weight Bearing Status Yes During Gait Assistive Devices Assistive Device Gait Belt,Front Wheeled Walker ,4 Wheeled Walker Orthotic/Prosthetic Devices or Brace: No Gait Deviations General Gait Pattern Antalgic,Decreased Stride Length,Flexed Trunk,Narrow Based Gait Factors Limiting Gait Function Factors Limiting Gait Function Decreased Activity Tolerance, Decreased Strength,Difficulty Following Directions,Poor Balance,Poor Safety Awareness, Respiratory Distress Comments Gait Comments See mobility comments. Stair Climbing Assessment Evaluation Level of Assist On Stairs Standby Assistance Devices Stair Climbing Assistive Devices Left Railing Technique/Endurance Stair Climbing Direction Ascend and Descend Stair Climbing Technique Step to Step Number of Steps Climbed 4 Stair Climbing Set # Repetitions (reps) 1 PT-Balance Assessment Sitting Balance and Reactions Static Sitting Balance Ability Good Dynamic Sitting Balance Ability Good Standing Balance and Reactions Static Standing Balance Ability Good Dynamic Standing Balance Ability Fair Device Used FWW M5 PT-IP Objective Assessments Start: 06/13/23 12:52 Freq: NEEDED Status: Active Protocol: Document 06/13/23 10:00 AB (Rec: 06/13/23 13:10 AB [id number]) Orientation Orientation/Cognition Level of Alertness Alert Orientation Name,Place,Situation Language Function Ability Hard of Hearing Safety Awareness Decreased Safety Awareness Gross Range of Motion Lower Extremity ROM Assessment Within Functional Limits Strength Lower Extremity Strength Assessment Within Functional Limits Muscle Tone Muscle Tone WNL Yes M6 PT-IP Treatment Start: 06/13/23 12:52 Freq: NEEDED Status: Active Protocol: Document 06/18/23 12:08 TS (Rec: 06/18/23 12:21 TS [id number]) Physical Therapy Treatment Education Education Provided Safety M7 PT-IP Assessment and Plan Start: 06/13/23 12:52 Freq: NEEDED Status: Active Protocol: Document 06/18/23 12:08 TS (Rec: 06/18/23 12:21 TS [id number]) PT Summary Assessment and Plan Potential Rehabilitation Potential Good Summary Impairments Strength,Balance,Cognition,Bed Mobility,Transfers,Activity Tolerance Progress Towards Goals Progressing Toward Goals,Slow Progress due to Medical Issues ,Slow Progress due to Activity Tolerance Assessment Summary Lindsay is SBA for sit to stands with FWW and 4WW. She ambulated ~30'SBA with FWW and ~20 with 4WW. She had no buckling or LOB with gait, does have some SOB, Spo2 on 2L remained in low 90's with mobility. She performed steps x4 SBA with single rail support. At home pt does not have rail, she will have help to get into her house from a roman catholic memeber. Pt declined FWW and will continue to use 4WW at home. Her activity tolerance remains low. PT is recommending home 24/7 vs SNF. Pt would benefit from SNF to improve strength and activity tolerance before s/c home, pt declined SNF. Goals Bed Mobility Goal Independent Transfer Goal Independent,Front Wheeled Walker,Four Wheeled Walker Gait Goal Independent,Front Wheel Walker ,Four Wheel Walker Gait Distance 200 Other Goals improve transfers and ambulation without AD 300 ft mod I up/down 2 steps without rails SBA Days to Meet Goals 10 Frequency of Treatment Frequency Of Treatment Once a Day Treatment Plan Physical Therapy Treatment Plan Bed Mobility Training,Transfer Training,Gait Training, Therapeutic Exercise,Balance Retraining,Discharge Planning, Hot or Cold Pack,Neuromuscular Re-ed,Coordination Retraining Precautions Other Precautions O2 sat Recommendations To Nursing Amount of Assist Needed Independent Discharge Recommendations PT Discharge Recommendations Home with 24/7 Assist Available,Home Health,SNF Rehab,Home vs SNF Equipment Needed for Home Before FWW Discharge Transportation Needs at Discharge Private Vehicle,Wheelchair/ Cabulance
--- NOTE | 2023-06-18 11:45 | PT.IPTN ---
Current Diagnoses Sepsis, unspecified organism (06/12/23) Physical Therapy Treatment Note M2 PT-IP Current Condition Start: 06/13/23 12:52 Freq: NEEDED Status: Active Protocol: Document 06/16/23 12:06 SP (Rec: 06/16/23 12:41 SP [id number]) Physical Therapy Current Condition Current Condition Evaluation Date 06/13/23 Treatment Diagnosis PNA; UTI; COPD; difficulty in walking Onset Date 06/12/23 M3 PT-IP Subjective Start: 06/13/23 12:52 Freq: NEEDED Status: Active Protocol: Document 06/18/23 12:08 TS (Rec: 06/18/23 12:21 TS [id number]) Subjective Physical Therapy Visit Type Type Treatment Note Visit Start Time 11:45 Visit Stop Time 12:06 Total Visit Minutes 21 Number of TECHNICAL MANAGER Visits 3 Physical Therapy Visit Comments Patient Comments Pt found resting in chair, reports she is feeling better than previously in the morning , agreeable to PT. M4 PT-IP Mobility and Gait Start: 06/13/23 12:52 Freq: NEEDED Status: Active Protocol: Document 06/18/23 12:08 TS (Rec: 06/18/23 12:21 TS [id number]) PT-Transfer Assessment Sit to and From Stand Sit to and from Stand Standby Assistance,Use of Upper Extremities Equipment Transfer Assistive Device Gait Belt,Front Wheeled Walker ,4 Wheeled Walker Orthotic/Prosthetic Devices or Brace: No Comments Mobility Comments Pt found resting in chair on 2L of o2, Spo2 95%. Sit to stand SBA with BUE support pushing from arms of chair and use of FWW. She ambulated ~30 ' in room with FWW SBA with slow step thru gait, required assistance in managing o2 line . She performed steps x4 ascending/descending SBA with use of counter top for support on L side. Pt sat back in chair, for rest break, Spo2 92 % on 2L. Sit to stand with 4WW SBA, pt ambulated ~20' with 4WW SBA, had no buckling or LOB. Pt was left back in chair , all needs met. Gait Assessment Gait Gait Assistance Required: Standby Assistance,1 Person Assist Distance (Feet) 50 Able to Maintain Weight Bearing Status Yes During Gait Assistive Devices Assistive Device Gait Belt,Front Wheeled Walker ,4 Wheeled Walker Orthotic/Prosthetic Devices or Brace: No Gait Deviations General Gait Pattern Antalgic,Decreased Stride Length,Flexed Trunk,Narrow Based Gait Factors Limiting Gait Function Factors Limiting Gait Function Decreased Activity Tolerance, Decreased Strength,Difficulty Following Directions,Poor Balance,Poor Safety Awareness, Respiratory Distress Comments Gait Comments See mobility comments. Stair Climbing Assessment Evaluation Level of Assist On Stairs Standby Assistance Devices Stair Climbing Assistive Devices Left Railing Technique/Endurance Stair Climbing Direction Ascend and Descend Stair Climbing Technique Step to Step Number of Steps Climbed 4 Stair Climbing Set # Repetitions (reps) 1 PT-Balance Assessment Sitting Balance and Reactions Static Sitting Balance Ability Good Dynamic Sitting Balance Ability Good Standing Balance and Reactions Static Standing Balance Ability Good Dynamic Standing Balance Ability Fair Device Used FWW M5 PT-IP Objective Assessments Start: 06/13/23 12:52 Freq: NEEDED Status: Active Protocol: Document 06/13/23 10:00 AB (Rec: 06/13/23 13:10 AB [id number]) Orientation Orientation/Cognition Level of Alertness Alert Orientation Name,Place,Situation Language Function Ability Hard of Hearing Safety Awareness Decreased Safety Awareness Gross Range of Motion Lower Extremity ROM Assessment Within Functional Limits Strength Lower Extremity Strength Assessment Within Functional Limits Muscle Tone Muscle Tone WNL Yes M6 PT-IP Treatment Start: 06/13/23 12:52 Freq: NEEDED Status: Active Protocol: Document 06/18/23 12:08 TS (Rec: 06/18/23 12:21 TS [id number]) Physical Therapy Treatment Education Education Provided Safety M7 PT-IP Assessment and Plan Start: 06/13/23 12:52 Freq: NEEDED Status: Active Protocol: Document 06/18/23 12:08 TS (Rec: 06/18/23 12:21 TS [id number]) PT Summary Assessment and Plan Potential Rehabilitation Potential Good Summary Impairments Strength,Balance,Cognition,Bed Mobility,Transfers,Activity Tolerance Progress Towards Goals Progressing Toward Goals,Slow Progress due to Medical Issues ,Slow Progress due to Activity Tolerance Assessment Summary Lindsay is SBA for sit to stands with FWW and 4WW. She ambulated ~30'SBA with FWW and ~20 with 4WW. She had no buckling or LOB with gait, does have some SOB, Spo2 on 2L remained in low 90's with mobility. She performed steps x4 SBA with single rail support. At home pt does not have rail, she will have help to get into her house from a alevism memeber. Pt declined FWW and will continue to use 4WW at home. Her activity tolerance remains low. PT is recommending home 24/7 vs SNF. Pt would benefit from SNF to improve strength and activity tolerance before s/c home, pt declined SNF. Goals Bed Mobility Goal Independent Transfer Goal Independent,Front Wheeled Walker,Four Wheeled Walker Gait Goal Independent,Front Wheel Walker ,Four Wheel Walker Gait Distance 200 Other Goals improve transfers and ambulation without AD 300 ft mod I up/down 2 steps without rails SBA Days to Meet Goals 10 Frequency of Treatment Frequency Of Treatment Once a Day Treatment Plan Physical Therapy Treatment Plan Bed Mobility Training,Transfer Training,Gait Training, Therapeutic Exercise,Balance Retraining,Discharge Planning, Hot or Cold Pack,Neuromuscular Re-ed,Coordination Retraining Precautions Other Precautions O2 sat Recommendations To Nursing Amount of Assist Needed Independent Discharge Recommendations PT Discharge Recommendations Home with 24/7 Assist Available,Home Health,SNF Rehab,Home vs SNF Transportation Needs at Discharge Private Vehicle,Wheelchair/ Cabulance
--- NOTE | 2023-06-18 12:17 | CM.DPC ---
DCP Discharge Home with HH Per PT/OT, pt refused therapies this morning stating fatigue. Per MD, pt's labs normal and on her home O2 setting and waiting chest xray to confirm pt medically stable to d/c today. SATYA met bedside with pt and explained role and she confirms she is still fairly fatigued but adamant that she does not want SNF. SW explained HH services and frequency and if that if she is medically stable to d/c today it would need to be SNF vs HH. Pt briefly willing to consider SNF and SW made initial referral to [facility] as they are the closest contracted with her [employer] and they would be willing to accept if needed. SW updated pt and she states she is now working to get her prior PP CG in place that she had a year or two ago when she had COVID and then her two sons will assist as well. Pt states she updated her son in [place], who is currently sick, and he helped to secure transport home for her today through his restorationism group and they will aim for 1500 pickup today. Pt requesting shower prior to d/c and SW updated OT who kindly will help her shower after lunch. SW updated MD and RN. Plan: SW to follow for chest xray results towards likely d/c home via local restorationism friend POJosé Luis and SATYA to update [facility] on pt discharge home today. BLAS Torres
[2023-06-18] MEDS: FUROSEMIDE 60 MG in SODIUM CHLORIDE 0.9% 50 ML 112 MG IV (12:25)
--- NOTE | 2023-06-18 13:40 | OT.IP.TRT ---
Current Diagnoses Sepsis, unspecified organism (06/12/23) Occupational Therapy Treatment Note M2 OT-IP Current Condition Start: 06/16/23 15:46 Freq: Status: Active Protocol: Document 06/16/23 15:47 CGR (Rec: 06/16/23 16:12 CGR [id number]) Occupational Therapy Current Condition Current Condition Evaluation Date 06/16/23 Treatment Diagnosis PNA, UTI, Sepsis Diagnosis Onset Date 06/12/23 M3 OT- IP Subjective and Pain Start: 06/16/23 15:46 Freq: Status: Active Protocol: Document 06/18/23 13:42 [facility] (Rec: 06/18/23 13:51 [facility] [id number]) OT- Subjective Occupational Therapy Visit Type Type Treatment Note Visit Start Time 12:55 Visit Stop Time 13:40 Total Visit Minutes 45 Occupational Therapy Visit Comments Patient Comments Pt agreed to shower after encouragement from therapist and her nurse. Patient/Caregiver Goals TO go home. OT Pain Assessment Pain When Pain Assessed At Rest Pain Present Pain Present Denied Pain M4 OT- IP ADL's Start: 06/16/23 15:46 Freq: Status: Active Protocol: Document 06/18/23 13:42 [facility] (Rec: 06/18/23 13:51 [facility] [id number]) OT IVT-Soew-Xqtovlu General Evaluation Self-Feeding Ability Independent Areas Needing Assistance Opening Containers OT ADL-Grooming General Evaluation Grooming Ability Independent OT ADL-Oral Care Comments Oral Care Comments Not performed. OT ADL-Dressing General Eval Lower Body Dressing Ability Moderate Assistance Comments OT Dressing Comments Pt needing cues to sit down for safety in order to doff her socks as pt trying to do so while standing up. Pt getting tired at the end of the shower and needing assist to thread her brief over her feet and assist to chaitanya her socks at this time. OT ADL-Toileting General Evaluation Toileting Ability Standby Assistance Comments OT Toileting Comments Pt able to to chaitanya/doff her brief and do her hygiene needs on her own after having a bowel movement. OT ADL-Bathing General Evaluation Bathing Ability Moderate Assistance Areas Needing Assistance Wash/Dry Back,Wash/Dry Lower Extremities Comments OT Bathing Comments Pt needing assist for her back and lower legs, especially for drying as pt getting tired at the end of the session. M5 OT- IP IADL's Start: 06/16/23 15:46 Freq: Status: Active Protocol: Document 06/16/23 15:47 CGR (Rec: 06/16/23 16:12 CGR [id number]) OT-Instrumental Activities of Daily Living Deficits IADL Deficits Identified No Deficits Home Safety Awareness Awareness of Need for Assistance at Home Good Awareness Ability to Problem Solve Emergency Able to Problem Solve Situations Medication Management Medication Management No Deficits Identified Money Management Money Management No Deficits Identified Meal Preparation Meal Preparation Caregiver Provides Assist Concrete Engineering Technician Concrete Engineering Technician Caregiver Provides Assist Driving Driving Comments 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 M6 OT- IP Functional Cognition Start: 06/16/23 15:46 Freq: Status: Active Protocol: Document 06/18/23 13:42 [facility] (Rec: 06/18/23 13:51 [facility] [id number]) Cognitive Factors Limiting Selfcare Function Cognitive Comments Cognitive Assessment Comments Intact. Pt realizes it would be best to have assist for showering needs at this time due to decreased overall activity tolerance now. M7 OT- IP Mobility and Balance Start: 06/16/23 15:46 Freq: Status: Active Protocol: Document 06/18/23 13:42 [facility] (Rec: 06/18/23 13:51 [facility] [id number]) OT-Transfer Assessment Sit to and From Stand Sit to and from Stand Standby Assistance Transfers Transfer Ability Standby Assistance,Contact Guard Assistance Technique Transfer Destination Chair,Shower Stall,Toilet Devices Transfer Assistive Devices Gait Belt,Front Wheeled Walker Comments Mobility Comments CGA with FWW to help step over the threshold. Pt otherwise SBA with FWW and able to manage her own O2 tubing on her own with good safety. OT- Balance Assessment Sitting Balance and Reactions Static Sitting Balance Ability Normal Dynamic Sitting Balance Ability Good Standing Balance and Reactions Static Standing Balance Ability Good Dynamic Standing Balance Ability Fair M8 OT- IP Objective Assessments Start: 06/16/23 15:46 Freq: Status: Active Protocol: Document 06/16/23 15:47 CGR (Rec: 06/16/23 16:12 CGR [id number]) OT Gross Range of Motion Upper Extremity Range of Motion Assessment Within Functional Limits OT Strength Upper Extremity Strength Assessment Within Functional Limits Comments Strength Comments grossly 4-/5 OT- Coordination Assessment Upper Extremity Finger to Nose Test Within Functional Limits Finger Tapping Test Within Functional Limits OT-Muscle Tone Assessment Muscle Tone WNL Yes OT Sensation Assessment Edema Edema Absent M9 OT- IP Assessment and Plan Start: 06/16/23 15:46 Freq: Status: Active Protocol: Document 06/18/23 13:42 [facility] (Rec: 06/18/23 13:51 [facility] [id number]) OT Summary Assessment and Plan Potential Rehabilitation Potential Good Analytic Complexity at Evaluation Low Summary OT Impairments Strength,Balance,Functional Mobility,Dressing,Toileting, Bathing,Toilet Transfers, Shower Transfers,Activity Tolerance Progress Towards Goals Progressing Toward Goals,Slow Progress due to Activity Tolerance Assessment Summary Pt doing better this afternoon and able to shower but at the end of the shower needing assist due to tiring. Pt to go home and will benefit from assist for IADl needs and assist for showering at this time. Pt will greatly benefit from home health and a bath aid. Goals Grooming Goal Independent Dressing Goal Independent Toileting Goal Independent Bathing Goal Independent Toilet Transfer Goal Independent Shower Transfer Goal Independent Days to Meet Goals 7 Frequency of Treatment Frequency Of Treatment Once a Day Treatment Plan OT Treatment Plan ADL Training,Functional Mobility,Patient/Family Education,Discharge Planning Discharge Recommendations OT Discharge Recommendations Home with Assistance,Home Health Transportation Needs at Discharge Private Vehicle
--- NOTE | 2023-06-18 15:21 | P.PN_ITS ---
Subjective Subjective Interval history: She does not feel well but she can not explain her symptoms other than being tired. Exam Vital Signs (past 8 hours): - 06/18/23 08:23 06/18/23 08:39 06/18/23 08:40 Temperature Pulse Rate 78 76 76 Respiratory Rate 22 Blood Pressure 158/70 H 158/70 H Pulse Oximetry 93 Oxygen Delivery Method Nasal Cannula Oxygen Flow Rate 1 06/18/23 09:15 06/18/23 12:00 Temperature 96.9 F L Pulse Rate 82 Respiratory Rate 19 Blood Pressure 145/62 H Pulse Oximetry 96 Oxygen Delivery Method Nasal Cannula Oxygen Flow Rate 2 Fraction of Inspired Oxygen 28 SaO2/FiO2 Ratio 350 Oxygen Delivery Method Nasal Cannula Oxygen Flow Rate 2 Narrative Exam Narrative: GEN: frail, chronically ill appearing CV: regular rate and rhythm PULM: clear, coughing frequently ABD: soft, nontender EXT: no edema Objective Labs 06/18/23 05:55 06/18/23 05:55 Labs: Laboratory Results - last 24 hr 06/18/23 06/18/23 05:55 Unknown WBC 7.0 RBC 3.31 L Hgb 9.4 L Hct 27.3 L MCV 82.6 MCH 28.4 MCHC 34.4 RDW 15.0 H Plt Count 354 Neut % (Auto) 72.9 Lymph % (Auto) 15.5 L Terrell % (Auto) 7.1 Eos % (Auto) 3.5 Baso % (Auto) 1.0 Neut # (Auto) 5100 Lymph # (Auto) 1100 Terrell # (Auto) 500 Eos # (Auto) 200 Baso # (Auto) 100 Sodium 136 L Potassium 4.2 Chloride 102 Carbon Dioxide 30 BUN 11 Creatinine 0.69 Estimated GFR > 60 BUN/Creatinine Ratio 15.9 Glucose 117 H Calcium 10.1 Troponin I < 0.012 NT-Pro-B Natriuret Pep 9060 H PFSH Medical History Bilateral carpal tunnel syndrome Aneurysm of infrarenal abdominal aorta Hyperlipidemia 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 Acute on chronic hypoxic resp failure 2/2 pneumonia, present on admission and active. -patient on baseline 2L, was up to 3L, but still more short of breath than normal -now back to baseline O2 -continue rocephin and azithro -respiratory PCR panel negative -ordered IV lasix on 06/18 for elevated bnp and pleural effusions on cxray 2. Urinary tract infection, present on admission and active. -urine culture with pansensitive E coli -ceftriaxone IV 3. Abdominal pain -likely secondary to cough -abdominal palpation showed no tenderness -LFTs, lipase, troponin all unremarkble 4. Sepsis with fever, [place] 24[place] [id number] and source of pneumonia and urinary tract infection. Present on admission and resolved 5. COPD without exacerbation, present on admission and stable. 6 CAD with history of CABG, present on admission and stable. Continue DAPT. 7. H/o of recent NSTEMI 8. Anemia, new and active. Will follow. Hgb stable. No evidence of bleeding. 9. Demand ischemia, new and active. ECG reassuring. Troponins slightly elevated and now normal. Quality VTE Deep Vein Thrombosis/Pulmonary Embolism Present on Admission: No
[2023-06-18] MEDS: ATORVASTATIN 20 MG TABLET 40 MG PO (21:04)
[2023-06-19 00:47] VITALS: O2SAT 97
[2023-06-19 02:00] VITALS: BP 162/69; PULSE 65; RESP 17; TEMP 36.2; O2SAT 95
[2023-06-19] MEDS: ALBUTEROL 2.5 MG/3 ML NEB (ADULT) INH (04:40)
[2023-06-19 04:41] VITALS: O2SAT 97
[2023-06-19 08:00] VITALS: BP 171/60; PULSE 65; RESP 20; TEMP 36.2; O2SAT 91
[2023-06-19 08:40] VITALS: PULSE 84; RESP 18; O2SAT 96
[2023-06-19] MEDS: ALBUTEROL/IPRATROPIUM 3 ML AMPUL INH (08:40)
[2023-06-19 08:47] VITALS: BP 171/60; PULSE 65
[2023-06-19] MEDS: FUROSEMIDE 40 MG/4 ML VIAL IV (08:47)
[2023-06-19] MEDS: dilTIAZem CD 120 MG CAP PO (08:47)
[2023-06-19] MEDS: ASPIRIN EC 81 MG TABLET PO (08:47)
[2023-06-19] MEDS: METOPROLOL ER 25 MG TABLET PO (08:47)
[2023-06-19] MEDS: CLOPIDOGREL 75 MG TABLET PO (08:47)
[2023-06-19] MEDS: lisinopriL 20 MG TABLET PO (08:47)
[2023-06-19] MEDS: HEPARIN 5,000 UNIT/ML VIAL 5000 UNIT SUBCUT (08:48)
[2023-06-19] MEDS: SODIUM CHLORIDE 0.9% FLUSH 10 ML IV (08:48)
[2023-06-19] MEDS: ISOSORBIDE MONONITRATE ER 30 MG TABLET 240 MG PO (08:48)
[2023-06-19] MEDS: LEVOTHYROXINE 88 MCG TABLET PO (08:48)
[2023-06-19 09:58] LABS: Hemoglobin 11.1 g/dL (12.0-16.0); Mean Corpuscular HGB Conc 33.7 % (30-36); Mean Corpuscular Hemoglobin 28.2 PG (26-34); Mean Corpuscular Volume 83.7 fL (80-100); Platelet Count 416 X10^3/uL (150-400); Red Blood Cell Count 3.94 X10^6/uL (4.0-5.2); Red Cell Distribution Width 15.1 % (11.6-14.8); White Blood Cell Count 7.9 X10^3/uL (4.5-11.0)
[2023-06-19 09:59] LABS: Add Manual Diff / Slide Review YES
[2023-06-19 10:10] LABS: BUN Creatinine Ratio 15.6 (6-22); Blood Urea Nitrogen 12 mg/dL (7-17); Calcium 10.8 mg/dL (8.4-10.2); Carbon Dioxide 29 mmol/L (22-32); Chloride 97 mmol/L (98-107); Estimated Glomerular Filt Rate > 60 mL/min (>60); Glucose 160 mg/dL (80-110); HEMOLYSIS < 15 (0-50); Potassium 3.7 mmol/L (3.4-5.1); Sodium 136 mmol/L (137-145)
[2023-06-19 10:12] LABS: Neutrophils Absolute Manual 6320 /uL (3000-5900); Total Cells Counted 100
[2023-06-19 10:13] LABS: Hypersegmented Neutrophils 1+; Toxic Vacuolation Present
[2023-06-19 10:18] LABS: Anisocytosis 1+; Ovalocytes 1+; RBC Morphology a
--- NOTE | 2023-06-19 10:34 | OT.IP.TRT ---
Current Diagnoses Sepsis, unspecified organism (06/12/23) Occupational Therapy Treatment Note M2 OT-IP Current Condition Start: 06/16/23 15:46 Freq: Status: Active Protocol: Document 06/16/23 15:47 CGR (Rec: 06/16/23 16:12 CGR [id number]) Occupational Therapy Current Condition Current Condition Evaluation Date 06/16/23 Treatment Diagnosis PNA, UTI, Sepsis Diagnosis Onset Date 06/12/23 M3 OT- IP Subjective and Pain Start: 06/16/23 15:46 Freq: Status: Active Protocol: Document 06/19/23 12:31 [facility] (Rec: 06/19/23 12:36 [facility]GR [id number]) OT- Subjective Occupational Therapy Visit Type Type Progress Note Visit Start Time 10:21 Visit Stop Time 10:34 Total Visit Minutes 13 Notes Pt states she is tired but agreeable to therapy services. OT Pain Assessment Pain When Pain Assessed At Rest Pain Present Pain Present Denied Pain M4 OT- IP ADL's Start: 06/16/23 15:46 Freq: Status: Active Protocol: Document 06/19/23 12:31 [facility]GR (Rec: 06/19/23 12:36 CGR [id number]) OT [id number]-Yxoyvyn Comments OT Self-Feeding Comments not meal time OT ADL-Grooming General Evaluation Grooming Ability Standby Assistance Areas Needing Assistance Retrieving/Set-up of Grooming Items,Combing/Brushing Hair, Face Washing Comments OT Grooming Comments standing at sink OT ADL-Oral Care General Eval Oral Care Ability Standby Assistance Areas of Assistance Brushing Teeth Comments Oral Care Comments standing at sink OT ADL-Dressing General Eval Lower Body Dressing Ability Independent Areas Needing Assistance Socks Comments OT Dressing Comments Pt doffed and donned socks to BLE without difficulty sitting in chair. OT ADL-Toileting Comments OT Toileting Comments not performed, pt states she just returned from the bathroom. OT ADL-Bathing Comments OT Bathing Comments not performed, pt states she performed yesterday M5 OT- IP IADL's Start: 06/16/23 15:46 Freq: Status: Active Protocol: Document 06/16/23 15:47 [facility] (Rec: 06/16/23 16:12 CGR [id number]) OT-Instrumental Activities of Daily Living Deficits IADL Deficits Identified No Deficits Home Safety Awareness Awareness of Need for Assistance at Home Good Awareness Ability to Problem Solve Emergency Able to Problem Solve Situations Medication Management Medication Management No Deficits Identified Money Management Money Management No Deficits Identified Meal Preparation Meal Preparation Caregiver Provides Assist Supervisor Paint Roller Covers Supervisor Paint Roller Covers Caregiver Provides Assist Driving Driving Comments 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 M6 OT- IP Functional Cognition Start: 06/16/23 15:46 Freq: Status: Active Protocol: Document 06/18/23 13:42 [facility] (Rec: 06/18/23 13:51 [facility] [id number]) Cognitive Factors Limiting Selfcare Function Cognitive Comments Cognitive Assessment Comments Intact. Pt realizes it would be best to have assist for showering needs at this time due to decreased overall activity tolerance now. M7 OT- IP Mobility and Balance Start: 06/16/23 15:46 Freq: Status: Active Protocol: Document 06/19/23 12:31 CGR (Rec: 06/19/23 12:36 CGR [id number]) OT-Transfer Assessment Sit to and From Stand Sit to and from Stand Standby Assistance Transfers Transfer Ability Standby Assistance Technique Transfer Destination Chair Transfer Technique Stand Step Pivot Devices Transfer Assistive Devices Front Wheeled Walker Comments Mobility Comments mobility around the room with 2ww OT- Gait Assessment Gait Gait Assistance Required: Standby Assistance Assistive Devices Assistive Device Front Wheeled Walker OT- Balance Assessment Sitting Balance and Reactions Static Sitting Balance Ability Good Dynamic Sitting Balance Ability Good M8 OT- IP Objective Assessments Start: 06/16/23 15:46 Freq: Status: Active Protocol: Document 06/16/23 15:47 CGR (Rec: 06/16/23 16:12 CGR [id number]) OT Gross Range of Motion Upper Extremity Range of Motion Assessment Within Functional Limits OT Strength Upper Extremity Strength Assessment Within Functional Limits Comments Strength Comments grossly 4-/5 OT- Coordination Assessment Upper Extremity Finger to Nose Test Within Functional Limits Finger Tapping Test Within Functional Limits OT-Muscle Tone Assessment Muscle Tone WNL Yes OT Sensation Assessment Edema Edema Absent M9 OT- IP Assessment and Plan Start: 06/16/23 15:46 Freq: Status: Active Protocol: Document 06/19/23 12:31 CGR (Rec: 06/19/23 12:36 CGR [id number]) OT Summary Assessment and Plan Potential Rehabilitation Potential Good Analytic Complexity at Evaluation Low Summary OT Impairments Strength,Balance,Functional Mobility,Dressing,Toileting, Bathing,Toilet Transfers, Shower Transfers,Activity Tolerance Progress Towards Goals Progressing Toward Goals,Slow Progress due to Activity Tolerance Assessment Summary Pt looked better today and states that she feels like she has more energy. Pt will continue to benefit from OT services. Recommend home with family vs SNF. Goals Grooming Goal Independent Dressing Goal Independent Toileting Goal Independent Bathing Goal Independent Toilet Transfer Goal Independent Shower Transfer Goal Independent Days to Meet Goals 7 Frequency of Treatment Frequency Of Treatment Once a Day Treatment Plan OT Treatment Plan ADL Training,Functional Mobility,Patient/Family Education,Discharge Planning Other Treatment Recommendations and Next shower, energy conservation, Treatment Focus endurance Discharge Recommendations OT Discharge Recommendations Home with Assistance,Home Health,SNF Rehab Transportation Needs at Discharge Private Vehicle
--- NOTE | 2023-06-19 11:30 | PT.IPTN ---
Current Diagnoses Sepsis, unspecified organism (06/12/23) Physical Therapy Treatment Note M2 PT-IP Current Condition Start: 06/13/23 12:52 Freq: NEEDED Status: Active Protocol: Document 06/16/23 12:06 SP (Rec: 06/16/23 12:41 SP [id number]) Physical Therapy Current Condition Current Condition Evaluation Date 06/13/23 Treatment Diagnosis PNA; UTI; COPD; difficulty in walking Onset Date 06/12/23 M3 PT-IP Subjective Start: 06/13/23 12:52 Freq: NEEDED Status: Active Protocol: Document 06/19/23 11:47 TS (Rec: 06/19/23 11:59 TS [id number]) Subjective Physical Therapy Visit Type Type Treatment Note Visit Start Time 11:30 Visit Stop Time 11:44 Total Visit Minutes 14 Number of CONSUMER MARKETING ANALYST Visits 4 Physical Therapy Visit Comments Patient Comments Pt found resting in chair, is agreeable to PT. M4 PT-IP Mobility and Gait Start: 06/13/23 12:52 Freq: NEEDED Status: Active Protocol: Document 06/19/23 11:47 TS (Rec: 06/19/23 11:59 TS [id number]) PT-Transfer Assessment Sit to and From Stand Sit to and from Stand Standby Assistance,Use of Upper Extremities Equipment Transfer Assistive Device Gait Belt,4 Wheeled Walker Orthotic/Prosthetic Devices or Brace: No Comments Mobility Comments Pt found resting in bed, on 2L of o2, Spo2 93%. Sit to stand from chair SBA with 4WW. She ambulated in room ~60' SBA with 4WW, had no buckling or LOB, denied any SOB. Pt requested to use toilet, she performed own pericare. Sit to stand from toilet SBA with 4WW. Pt was left back in bed, all needs met. Gait Assessment Gait Gait Assistance Required: Standby Assistance,1 Person Assist Distance (Feet) 60 Able to Maintain Weight Bearing Status Yes During Gait Assistive Devices Assistive Device Gait Belt,4 Wheeled Walker Orthotic/Prosthetic Devices or Brace: No Gait Deviations General Gait Pattern Antalgic,Decreased Stride Length,Flexed Trunk,Narrow Based Gait Factors Limiting Gait Function Factors Limiting Gait Function Decreased Activity Tolerance, Decreased Strength,Difficulty Following Directions,Poor Balance,Poor Safety Awareness, Respiratory Distress Comments Gait Comments See mobility comments. PT-Balance Assessment Sitting Balance and Reactions Static Sitting Balance Ability Normal Dynamic Sitting Balance Ability Good Standing Balance and Reactions Static Standing Balance Ability Good Dynamic Standing Balance Ability Fair Device Used FWW M5 PT-IP Objective Assessments Start: 06/13/23 12:52 Freq: NEEDED Status: Active Protocol: Document 06/13/23 10:00 AB (Rec: 06/13/23 13:10 AB [email or web address]) Orientation Orientation/Cognition Level of Alertness Alert Orientation Name,Place,Situation Language Function Ability Hard of Hearing Safety Awareness Decreased Safety Awareness Gross Range of Motion Lower Extremity ROM Assessment Within Functional Limits Strength Lower Extremity Strength Assessment Within Functional Limits Muscle Tone Muscle Tone WNL Yes M6 PT-IP Treatment Start: 06/13/23 12:52 Freq: NEEDED Status: Active Protocol: Document 06/19/23 11:47 TS (Rec: 06/19/23 11:59 TS [email or web address]) Physical Therapy Treatment Education Education Provided Safety M7 PT-IP Assessment and Plan Start: 06/13/23 12:52 Freq: NEEDED Status: Active Protocol: Document 06/19/23 11:47 TS (Rec: 06/19/23 11:59 TS [email or web address]) PT Summary Assessment and Plan Potential Rehabilitation Potential Good Summary Impairments Strength,Balance,Cognition,Bed Mobility,Transfers,Activity Tolerance Progress Towards Goals Progressing Toward Goals Assessment Summary Lindsay continues to make progress with her mobility. She is SBA for sit to stands with 4WW, has good standing balance with no retroleaning. She progressed her gait to ~60 'SBA with 4WW, has no buckling or LOB, denied any SOB. PT is recommending home 17/03 assist and HHPT vs SNF. Pt could benefit from stay in rehab to progress strength and activity tolerance. Goals Bed Mobility Goal Independent Transfer Goal Independent,Front Wheeled Walker,Four Wheeled Walker Gait Goal Independent,Front Wheel Walker ,Four Wheel Walker Gait Distance 200 Other Goals improve transfers and ambulation without AD 300 ft mod I up/down 2 steps without rails SBA Days to Meet Goals 10 Frequency of Treatment Frequency Of Treatment Once a Day Treatment Plan Physical Therapy Treatment Plan Bed Mobility Training,Transfer Training,Gait Training, Therapeutic Exercise,Balance Retraining,Discharge Planning, Hot or Cold Pack,Neuromuscular Re-ed,Coordination Retraining Other Recommendations and Next Treatment Continue to work on transfer Focus with AD, progress gait. Precautions Other Precautions O2 sat Recommendations To Nursing Amount of Assist Needed Standby Assistance Discharge Recommendations PT Discharge Recommendations Home with / Assist Available,Home Health,SNF Rehab,Home vs SNF Transportation Needs at Discharge Private Vehicle
--- NOTE | 2023-06-19 14:07 | P.DS_ITS ---
History of Present Illness History of Present Illness Date Patient Seen: 06/12/23 Time Patient Seen: 15:56 Date of Onset of Symptoms: 06/10/23 Chief complaint: shortness of breath, weakness Narrative: She is an 87-year-old female with a history of CAD, and COPD, as well as chronic cough. She presents, having not felt well for several days. She is been progressively weak. She denies any overt dyspnea, or cough. She has had urinary frequency and difficulty voiding. She denies any confusion, or headache. She also denies any change in her breathing or shortness of breath. In the emergency department she was found to be volume depleted, and have evidence of pneumonia on chest x-ray as well as urine tract infection on her urinalysis. She was given the sepsis bundle bolus of fluids, her lactic acid was normal. She was given broad-spectrum empiric antibiotics as well. She denies any palpitations, nausea. She has had some anorexia. She denies any diarrhea or abdominal pain. When asked about level of care, she reports do not resuscitate and no invasive maneuvers including intubation. She states that she is a Buddhism and ready to meet her create her. Discharge Providers Provider Date of admission: 06/12/23 14:12 Discharge Date: 06/19/23 Primary care physician: EARLINE Mendez Consults: 06/12/23 15:47 Consult to Physical Therapy Evaluate & Treat Comment: Physician Instructions: Evaluate and Treat 06/13/23 13:19 Consult to Occupational Therapy Evaluate & Treat Comment: Physician Instructions: Evaluate and treat 06/13/23 13:35 Consult to Home Health Routine Comment: Reason For Exam: home health services upon discharge Discharge provider: Dell Thomas DO Summary Hospital Course Discharge Diagnosis: 1. Acute on chronic hypoxic resp failure 2/2 pneumonia, present on admission and active. -patient on baseline 2L, was up to 3L, but still more short of breath than normal -now back to baseline O2 -finished course of rocephin and azithro -respiratory PCR panel negative -ordered IV lasix on 06/18 for elevated bnp and pleural effusions on cxray, improved breathing some 2. Urinary tract infection, present on admission and active. -urine culture with pansensitive E coli -finished ceftriaxone IV 3. Abdominal pain, improved -likely secondary to cough -abdominal palpation showed no tenderness -LFTs, lipase, troponin all unremarkble 4. Sepsis with fever, [place] 24[place] [address] and source of pneumonia and urinary tract infection. Present on admission and resolved 5. COPD without exacerbation, present on admission and stable. 6 CAD with history of CABG, present on admission and stable. Continue DAPT. 7. H/o of recent NSTEMI 8. Anemia, new and active. Will follow. Hgb stable. No evidence of bleeding. 9. Demand ischemia, new and active. ECG reassuring. Troponins slightly elevated and now normal. Hospital Course: Admitted for sepsis and acute on chronic resp failure from pneumonia. Received IV abx and slowly improved over a week. Treated for UTI as well. PT cleared for home with assist so she was discharged home and no home med changes were made. Exam Vital Signs (past 8 hours): - 06/19/23 08:00 06/19/23 08:40 06/19/23 08:45 Temperature 97.2 F L Pulse Rate 65 84 Respiratory Rate 20 18 Blood Pressure 171/60 H Pulse Oximetry 91 96 Oxygen Delivery Method Nasal Cannula Nasal Cannula Oxygen Flow Rate 2 2 06/19/23 08:47 06/19/23 08:47 Temperature Pulse Rate 65 65 Respiratory Rate Blood Pressure 171/60 H 171/60 H Pulse Oximetry Oxygen Delivery Method Oxygen Flow Rate Fraction of Inspired Oxygen 28 SaO2/FiO2 Ratio 350 Oxygen Delivery Method Nasal Cannula Oxygen Flow Rate 2 Narrative Exam Narrative: GEN: frail, chronically ill appearing CV: regular rate and rhythm PULM: clear, coughing frequently ABD: soft, nontender EXT: no edema Objective Labs 06/19/23 09:40 06/19/23 09:40 Labs: Laboratory Results - last 24 hr 06/19/23 09:40 WBC 7.9 RBC 3.94 L Hgb 11.1 L Hct 33.0 L MCV 83.7 MCH 28.2 MCHC 33.7 RDW 15.1 H Plt Count 416 H Neut % (Auto) Not Reportable Lymph % (Auto) Not Reportable [place] % (Auto) Not Reportable Eos % (Auto) Not Reportable Baso % (Auto) Not Reportable Lymph # (Auto) Not Reportable [place] # (Auto) Not Reportable Baso # (Auto) Not Reportable Total Counted 100 Seg Neutrophils % 79.0 H Band Neutrophils % 1.0 L Lymphocytes % (Manual) 5.0 L Atypical Lymphs % 6.0 H Monocytes % (Manual) 2.0 Basophils % (Manual) 1.0 Metamyelocytes % 6.0 H Neutrophils # (Manual) 6320 H Hypersegmented Neuts 1+ Toxic Vacuolation Present H Plt Morphology Comment RBC Morphology a Anisocytosis 1+ H Ovalocytes 1+ H Sodium 136 L Potassium 3.7 Chloride 97 L Carbon Dioxide 29 BUN 12 Creatinine 0.77 Estimated GFR > 60 BUN/Creatinine Ratio 15.6 Glucose 160 H Calcium 10.8 H PFSH Medical History Bilateral carpal tunnel syndrome Aneurysm of infrarenal abdominal aorta Hyperlipidemia 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 You finished your antibiotic course so can just resume all of your home meds. Discharge orders & Medications Prescriptions: Continued aspirin 81 MG tablet,delayed release (DR/EC) 81 mg PO QDAY Qty: 0 Rx Instructions: morning omega 8-wfw-bmb-fish oil [Fish Oil] 1,000 mg (120 mg-180 mg) Capsule 1,000 mg PO DAILY nitroglycerin [Nitrostat] 0.4 mg Tablet, Sublingual 0.4 mg SUBLINGUAL Q5-15M PRN (Reason: Chest Pain) Patient Comments: Patient has not ever taken nitro at home, education provided to her today. She was administered 2x nitro by EMS en route, and 1x nitro while in the ER. vitamin E 400 unit Capsule 400 unit PO DAILY multivitamin Tablet,Chewable 1 tab PO DAILY fluticasone propion-salmeterol [Advair Diskus] 500-50 mcg/dose blister with device 1 ea INHALATION BID PRN (Reason: Shortness Of Breath) Patient Comments: INHALE 1 DOSE BY MOUTH TWICE DAILY DIRECTED prednisone 20 mg tablet 20 mg PO DAILY PRN (Reason: Shortness Of Breath Or Wheezing) atorvastatin [Lipitor] 20 mg tablet 40 mg PO QPM Patient Comments: patient states she forgets to take diltiazem HCl [Cartia XT] 120 mg capsule,extended release 24hr 120 mg PO QAM Patient Comments: TAKE 1 CAPSULE BY MOUTH ONCE DAILY levothyroxine 88 mcg tablet 88 mcg PO QAM Patient Comments: TAKE 1 TABLET BY MOUTH ONCE DAILY lisinopril 40 mg tablet 20 mg PO QAM Patient Comments: TAKE 1 TABLET BY MOUTH ONCE DAILY clopidogrel 75 mg tablet 75 mg PO QAM ipratropium-albuterol 0.5 mg-3 mg(2.5 mg base)/3 mL solution for nebulization 3 ml INHALATION BID metoprolol succinate 25 mg tablet extended release 24 hr 25 mg PO DAILY Patient Comments: pt has not started, it 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 and picking 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 10 mg Tablet 10 mg PO TID PRN (Reason: Muscle Spasm) albuterol 90 mcg/actuation Aerosol 90 mcg INHALATION Q4-6H PRN (Reason: Shortness Of Breath) torsemide 20 mg tablet 40 mg PO DAILY isosorbide mononitrate 120 mg tablet extended release 24 hr 240 mg PO QAM Patient Comments: TAKE 1 TABLET BY MOUTH ONCE DAILY IN THE MORNING Follow up/Referrals: Catie Storm ARNP [Primary Care Provider] - 2 Weeks Visit Report/Discharge Packet Stand Alone Forms: Patient Portal/API, Stroke Signs & Symptoms Discharge Data Primary Care Provider: Catie Storm Quality VTE Deep Vein Thrombosis/Pulmonary Embolism Present on Admission: No
--- NOTE | 2023-06-19 15:27 | PC.NURSE ---
Pt discharged home by private vehicle at 1515, escorted off floor in wheelchair accompanied by hospital staff. IV removed, discharge teaching completed including follow up appointment, worsening symptoms and fall safety at home. Questions answered. Patient left with all belongings.
--- NOTE | 2023-06-20 09:28 | CM.DPNOTE ---
DC Note Late Entry This MANAGER WASTEWATER unaware yesterday of patient's discharge. Reviewed chart this morning to find that patient discharged home yesterday with family. Placed call to [facility] Janet ROBERTSON. Janet requests new referral to include completed F2F and HH order with face sheet and clinical. FAHAD Holden kindly agreed to send [facility] all of this documentation. [facility] for MARCELO RN/PT/OT/MEAT INSPECTOR/MANAGER WASTEWATER JW
== END 2023-06-19 15:34 | disposition home health service (06) | DRG 871 ==
LOC: ED 12:20 → AC 14:13
PROVIDERS: Internal Medicine; Student in an Organized Health Care Education/Training Program; Admitting Provider Hospitalist; Emergency Provider Emergency Medicine; PCP Nurse Practitioner Family; Referring Provider Emergency Medicine; Visit Provider Hospitalist
DX: A41.9 Sepsis, unspecified organism (principal); J18.9 Pneumonia, unspecified organism; J96.21 Acute and chronic respiratory failure with hypoxia; N39.0 Urinary tract infection, site not specified; I24.89 Other forms of acute ischemic heart disease; J44.0 Chronic obstructive pulmonary disease with (acute) lower respiratory infection; I25.10 Atherosclerotic heart disease of native coronary artery without angina pectoris; B96.20 Unspecified Escherichia coli [E. coli] as the cause of diseases classified elsewhere; R10.9 Unspecified abdominal pain; I10 Essential (primary) hypertension; I25.2 Old myocardial infarction; E78.5 Hyperlipidemia, unspecified; Z87.891 Personal history of nicotine dependence; Z66 Do not resuscitate; Z95.1 Presence of aortocoronary bypass graft
CPT/HCPCS: 0241U; 36415; 71045; 71275; 80048; 80053; 80076; 81001; 83605; 83690; 83880; 84145; 84484; 85007; 85025; 85379; 85610; 85730; 87040; 87070; 87077; 87086; 87186; 87205; 87633; 87635; 93005; 93010; 94640; 94760; 94762; 96365; 96367; 96375; 97116; 97162; 97165; 97530; 97535; 99285; C9803; J0131; J0696; J1644; J1940; J2405; J7613; Q9967

== ENCOUNTER 2023-08-28 11:25 | Emergency (ER) | payer OTHER, SELFPAY ==
[2023-06-12 16:02] VITALS: BMI 25.8
[2023-08-28] VITALS (12 sets, daily range): BP systolic 112–215; BP diastolic 84–146; PULSE 71–80; RESP 18–29; TEMP 36.4; O2SAT 97–99; BMI 25.0
--- NOTE | 2023-08-28 11:31 | DI.RAD.S_ITS ---
PROCEDURE: XR CHEST 1V INDICATIONS: shortness of breath TECHNIQUE: One view of the chest was acquired. COMPARISON: [facility], , XR CHEST 1V, 06/18/2023, 11:13. FINDINGS: Surgical changes and devices: Median sternotomy. Lungs and pleura: Mild diffuse chronic appearing reticulonodular pulmonary density No pleural effusions or pneumothorax. Mediastinum: Mediastinal contours appear normal. Heart size is normal. Bones and chest wall: No suspicious bony lesions. Overlying soft tissues appear unremarkable. IMPRESSION: Chronic appearing interstitial lung disease. No definite acute process. Dictated by: Peg Quiroz M.D. on 08/28/2023 at 11:53 Approved by: Peg Quiroz M.D. on 08/28/2023 at 11:55
--- NOTE | 2023-08-28 11:56 | ED.GENADULT ---
HPI - General Adult General Chief complaint: Shortness of Breath/Dyspnea Stated complaint: Chest Pain, SOB x2 days Time Seen by Provider: 08/28/23 11:27 Source: patient Mode of arrival: EMS Limitations: no limitations History of Present Illness HPI narrative: Patient is an 87-year-old female. Has a history of COPD. Is on 2 L of home oxygen at baseline. She states for the past couple days she has not been able to get her peak flow up to what it normally is. She always has some pressure on her chest but this morning it was more than normal. No fevers. Is coughing but this is baseline for her. No change in her cough. No productive sputum. No fevers. She was [place] her way [place] the [place] and wanted to get checked out so she went to the walk-in clinic and was subsequently sent to the emergency department by EMS. She did receive nitro by EMS. Unsure as to whether or not this was had all helpful to her. Denies abdominal pain nausea vomiting. No lower extremity swelling. She has not had to increase her home oxygen. Related Data Home Medications Medication Instructions Recorded Confirmed aspirin 81 mg tablet,delayed 81 mg PO QDAY ##0 07/11/17 06/12/23 release multivitamin 1 tab PO DAILY 07/07/18 06/12/23 nitroglycerin 0.4 mg sublingual 0.4 mg sublingual Q5-15M PRN Chest 07/07/18 06/12/23 tablet (Nitrostat) Pain omega 7-myb-sct-fish oil 1,000 mg 1,000 mg PO DAILY 07/07/18 06/12/23 (120 mg-180 mg) capsule (Fish Oil) vitamin E 268 mg (400 unit) capsule 400 unit PO DAILY 07/07/18 06/12/23 atorvastatin 20 mg tablet (Lipitor) 40 mg PO QPM 05/04/22 06/12/23 diltiazem HCl 120 mg 120 mg PO QAM 05/04/22 06/12/23 capsule,extended release 24 hr (Cartia XT) levothyroxine 88 mcg tablet 88 mcg PO QAM 05/04/22 06/12/23 lisinopril 40 mg tablet 20 mg PO QAM 05/04/22 06/12/23 albuterol 90 mcg/actuation aerosol 90 mcg inhalation Q4-6H PRN 05/20/22 06/12/23 inhaler Shortness Of Breath clopidogrel 75 mg tablet 75 mg PO QAM 05/20/22 06/12/23 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 10 mg tablet 10 mg PO TID PRN Muscle Spasm 05/20/22 06/12/23 ipratropium 0.5 mg-albuterol 3 mg 3 ml inhalation BID 05/20/22 06/12/23 (2.5 mg base)/3 mL nebulization soln metoprolol succinate 25 mg 25 mg PO DAILY 05/20/22 06/12/23 tablet,extended release 24 hr torsemide 20 mg tablet 40 mg PO DAILY 04/29/23 06/12/23 fluticasone 500 mcg-salmeterol 50 1 ea inhalation BID PRN Shortness 05/16/23 06/12/23 mcg/dose blistr powdr for Of Breath inhalation (Advair Diskus) prednisone 20 mg tablet 20 mg PO DAILY PRN Shortness Of 05/16/23 06/12/23 Breath Or Wheezing isosorbide mononitrate 120 mg 240 mg PO QAM 06/12/23 06/12/23 tablet,extended release 24 hr Allergies Allergy/AdvReac Type Severity Reaction Status Date / Time amlodipine Allergy Intermediate Verified 08/28/23 11:49 doxazosin [From Cardura] Allergy Intermediate Rash Verified 08/28/23 11:49 doxycycline Allergy Intermediate Rash Verified 08/28/23 11:49 gemfibrozil Allergy Intermediate Rash Verified 08/28/23 11:49 levofloxacin Allergy Intermediate Rash Verified 08/28/23 11:49 losartan Allergy Intermediate Rash Verified 08/28/23 11:49 montelukast [From Singulair] Allergy Intermediate Difficulty Verified 08/28/23 11:49 Breathing Sulfa (Sulfonamide Allergy Intermediate rash Verified 08/28/23 11:49 Antibiotics) sulfamethoxazole Allergy Intermediate Rash Verified 08/28/23 11:49 [From Bactrim] trimethoprim [From Bactrim] Allergy Intermediate Rash Verified 08/28/23 11:49 carvedilol Allergy Mild Rash Verified 08/28/23 11:49 acarbose AdvReac Intermediate Abdominal Verified 08/28/23 11:49 Pain chlorthalidone AdvReac Intermediate Redness of Verified 08/28/23 11:49 Skin metoprolol AdvReac Intermediate Verified 08/28/23 11:49 nifedipine AdvReac Intermediate Chills Verified 08/28/23 11:49 budesonide [From Symbicort] AdvReac Mild Anxiety Verified 08/28/23 11:49 choline fenofibrate AdvReac Mild Gastrointestinal Verified 08/28/23 11:49 [From Trilipix] Upset formoterol [From Symbicort] AdvReac Mild Anxiety Verified 08/28/23 11:49 Review of Systems Review of Systems ROS Unobtainable: All systems reviewed & are unremarkable except as noted in HPI and below Patient History Medical History Bilateral carpal tunnel syndrome Aneurysm of infrarenal abdominal aorta Hyperlipidemia 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 CAD (coronary artery disease) HTN (hypertension) Elevated TSH Unstable angina Surgical History Status post cholecystectomy H/O hysterectomy with oophorectomy H/O three vessel coronary artery bypass Hx of heart artery stent Family History Father Lung cancer Mother COPD (chronic obstructive pulmonary disease) Social History household members: children Smoking Status: Former smoker alcohol intake: never Smoking Status: Former smoker tobacco type: cigarettes alcohol intake frequency: 0-2 drinks per day Substance Use Type: does not use Exam Initial Vital Signs Initial Vital Signs: Vital Signs Temperature 97.6 F 08/28/23 11:20 Pulse Rate 77 08/28/23 11:20 Respiratory Rate 18 08/28/23 11:20 Blood Pressure 215/95 H 08/28/23 11:20 Pulse Oximetry 98 08/28/23 11:20 Oxygen Delivery Method Nasal Cannula 08/28/23 11:20 Oxygen Flow Rate 2 08/28/23 11:20 HENMT Head: normal to inspection and normocephalic Resp Effort & Inspection: not labored and not tachypneic Auscultation: clear to auscultation bilaterally Cardio Rate: regular rate Rhythm: regular rhythm GI Inspection: normal to inspection and non-distended Skin General: no rashes or lesions noted Extrem General: No edema Course Orders Ordered: ED Orders 08/28/23 11:31 XR chest 1V Stat EKG-12 Lead Stat 08/28/23 11:40 Complete Blood Count AUTO DIFF Stat Respiratory Panel (Film Array) Stat 08/28/23 12:30 Comprehensive Metabolic Panel Stat Lipase Stat Troponin & CK Cardiac Panel Stat Vital Signs Vital signs: Vital Signs - 8 hr 08/28/23 11:20 08/28/23 11:31 08/28/23 11:31 Temperature 97.6 F Pulse Rate 77 73 Respiratory Rate 18 Blood Pressure 215/95 H 215/95 H Pulse Oximetry 98 98 Oxygen Delivery Method Nasal Cannula Nasal Cannula Oxygen Flow Rate 2 2 08/28/23 12:00 08/28/23 12:01 08/28/23 12:01 Temperature Pulse Rate 78 80 Respiratory Rate 23 24 Blood Pressure 212/146 H Pulse Oximetry 99 99 Oxygen Delivery Method Nasal Cannula Oxygen Flow Rate 2 08/28/23 12:03 08/28/23 12:03 08/28/23 12:30 Temperature Pulse Rate 72 78 Respiratory Rate 22 24 Blood Pressure 206/94 H Pulse Oximetry 99 99 Oxygen Delivery Method Nasal Cannula Oxygen Flow Rate 2 08/28/23 12:30 08/28/23 12:31 08/28/23 12:31 Temperature Pulse Rate 77 Respiratory Rate 26 H Blood Pressure 198/112 H 202/95 H Pulse Oximetry 99 Oxygen Delivery Method Nasal Cannula Oxygen Flow Rate 2 08/28/23 13:00 08/28/23 13:00 08/28/23 13:30 Temperature Pulse Rate 71 74 Respiratory Rate 22 23 Blood Pressure 202/91 H Pulse Oximetry 97 97 Oxygen Delivery Method Nasal Cannula Oxygen Flow Rate 2 08/28/23 13:30 Temperature Pulse Rate Respiratory Rate Blood Pressure 189/84 H Pulse Oximetry Oxygen Delivery Method Oxygen Flow Rate Medical Decision Making Lab Data 08/28/23 11:40 08/28/23 12:30 Labs: Lab Results 08/28/23 08/28/23 Range/Units 11:40 12:30 WBC 7.4 (4.5-11.0) X10^3/uL RBC 4.63 (4.0-5.2) X10^6/uL Hgb 12.8 (12.0-16.0) g/dL Hct 38.8 (36-46) % MCV 83.8 (80-100) fL MCH 27.7 (26-34) PG MCHC 33.0 (30-36) % RDW 15.5 H (11.6-14.8) % Plt Count 243 (150-400) X10^3/uL Neut % (Auto) 72.5 (50-75) % Lymph % (Auto) 16.2 L (25-40) % Towner % (Auto) 7.6 (3-14) % Eos % (Auto) 2.6 (2-4) % Baso % (Auto) 1.1 (0-2) % Neut # (Auto) 5400 (2508-9027) /uL Lymph # (Auto) 1200 (0070-4550) /uL Towner # (Auto) 600 (0-900) /uL Eos # (Auto) 200 (0-450) /uL Baso # (Auto) 100 (0-100) /uL Sodium 137 (137-145) mmol/L Potassium 4.4 (3.4-5.1) mmol/L Chloride 101 (98-107) mmol/L Carbon Dioxide 29 (22-32) mmol/L BUN 14 (7-17) mg/dL Creatinine 0.78 (0.52-1.04) mg/dL Estimated GFR > 60 (>60) mL/min BUN/Creatinine Ratio 17.9 (6-22) Glucose 114 H (80-110) mg/dL Calcium 10.0 (8.4-10.2) mg/dL Total Bilirubin 0.7 (0.2-1.3) mg/dL AST TNP ALT 14 (<35) IU/L Alkaline Phosphatase 75 (38-126) U/L Total Creatine Kinase 46 (30-135) U/L Troponin I 0.830 H* (0.01-0.034) ng/mL Total Protein 6.5 (6.3-8.2) g/dL Albumin 3.5 (3.5-5.0) g/dL Globulin 3.0 (1.7-4.1) g/dL Albumin/Globulin Ratio 1.2 (1.0-2.8) Lipase 41 (23-300) U/L Chlamy pneumoniae PCR Not detected (Not Detect) Adenovirus (PCR) Not detected (Not Detect) B.parapertussis DNA PCR Not detected (Not Detecte) Coronavirus OC43 (PCR) Not detected (Not Detect) Coronavirus HKU1 (PCR) Not detected (Not Detect) Coronavirus 229E (PCR) Not detected (Not Detect) SARS-CoV-2 (PCR) Not detected (Not Detecte) Coronavirus NL63 (PCR) Not detected (Not Detect) Human Metapneumovir PCR Not detected (Not Detect) Influenza Type A (PCR) Not detected (Not Detect) Influenza Type B (PCR) Not detected (Not Detect) M. pneumoniae (PCR) Not detected (Not Detect) Parainfluenza 1 (PCR) Not detected (Not Detect) Parainfluenza 2 (PCR) Not detected (Not Detect) Parainfluenza 3 (PCR) Not detected (Not Detect) Parainfluenza 4 (PCR) Not detected (Not Detect) RSV (PCR) Not detected (Not Detect) Entero/Rhino (PCR) Not detected (Not Detect) Imaging Data Chest x-ray: Radiologist's Impression: PROCEDURE: XR CHEST 1V INDICATIONS: shortness of breath TECHNIQUE: One view of the chest was acquired. COMPARISON: [facility], , XR CHEST 1V, 06/18/2023, 11:13. FINDINGS: Surgical changes and devices: Median sternotomy. Lungs and pleura: Mild diffuse chronic appearing reticulonodular pulmonary density No pleural effusions or pneumothorax. Mediastinum: Mediastinal contours appear normal. Heart size is normal. Bones and chest wall: No suspicious bony lesions. Overlying soft tissues appear unremarkable. IMPRESSION: Chronic appearing interstitial lung disease. No definite acute process. ECG Data Attestation: I personally reviewed and interpreted this ECG as follows: Interpretation: Sinus rhythm Ventricular rate is 76 Normal axis QRS 160 LVH MDM Narrative Medical decision making narrative: Patient is at her baseline respiratory status. Baseline oxygen need. She does have a troponin that is slightly elevated today. She was admitted in April of last year for a non-STEMI. At that point Cardiology determined that she was not a candidate for further intervention because of a AAA. Recommended medical management. She was then admitted several weeks later where her troponin was negative. This is for a COPD exacerbation. So the elevated troponin today is most likely new. I had a very long discussion with her regarding this. Advised that it looks like her heart is being stressed. We discussed that it was determined that she was not a candidate for further intervention such as PCI or coronary artery bypass graft. I discussed options with her to include being admitted to the hospital for further observation. We discussed discharging patient home. She expressed understanding of what is going on with her heart today. She understands that potentially things could get worse. She stated that she could always return to the emergency department if the discomfort gets worse. She has nitroglycerin at home. She has not been using this because she forgets that she has it. She understands how to use this appropriately. Patient states she is family coming into town tomorrow. She would like to go home. Patient has a GCS of 15. Alert and oriented x3 in my opinion has capacity to make decisions. Will discharge patient home with return precautions. Discharge Plan Departure Patient Disposition: Home Clinical Impression: Angina at rest, COPD (chronic obstructive pulmonary disease) Instructions: DI for Chest Pain Activity Restrictions/Additional Instructions: After our discussion of the concern of potential heart issues you have opted to be discharged home and return if your symptoms worsen. Recommend that you continue all of your medications as directed and take your nitroglycerin like we discussed. Please return to the emergency department for new symptoms like we discussed. Prescriptions: No Action aspirin 81 MG tablet,delayed release (DR/EC) 81 mg PO QDAY Qty: 0 Rx Instructions: morning omega 9-zzf-gca-fish oil [Fish Oil] 1,000 mg (120 mg-180 mg) Capsule 1,000 mg PO DAILY nitroglycerin [Nitrostat] 0.4 mg Tablet, Sublingual 0.4 mg SUBLINGUAL Q5-15M PRN (Reason: Chest Pain) Patient Comments: Patient has not ever taken nitro at home, education provided to her today. She was administered 2x nitro by EMS en route, and 1x nitro while in the ER. \ vitamin E 400 unit Capsule 400 unit PO DAILY multivitamin Tablet,Chewable 1 tab PO DAILY fluticasone propion-salmeterol [Advair Diskus] 500-50 mcg/dose blister with device 1 ea INHALATION BID PRN (Reason: Shortness Of Breath) Patient Comments: INHALE 1 DOSE BY MOUTH TWICE DAILY DIRECTED prednisone 20 mg tablet 20 mg PO DAILY PRN (Reason: Shortness Of Breath Or Wheezing) atorvastatin [Lipitor] 20 mg tablet 40 mg PO QPM Patient Comments: patient states she forgets to take diltiazem HCl [Cartia XT] 120 mg capsule,extended release 24hr 120 mg PO QAM Patient Comments: TAKE 1 CAPSULE BY MOUTH ONCE DAILY levothyroxine 88 mcg tablet 88 mcg PO QAM Patient Comments: TAKE 1 TABLET BY MOUTH ONCE DAILY lisinopril 40 mg tablet 20 mg PO QAM Patient Comments: TAKE 1 TABLET BY MOUTH ONCE DAILY clopidogrel 75 mg tablet 75 mg PO QAM ipratropium-albuterol 0.5 mg-3 mg(2.5 mg base)/3 mL solution for nebulization 3 ml INHALATION BID metoprolol succinate 25 mg tablet extended release 24 hr 25 mg PO DAILY Patient Comments: pt has not started, 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
[2023-08-28 12:01] LABS: Add Manual Diff / Slide Review NO; Basophils Absolute Auto 100 /uL (0-100); Basophils Percent Auto 1.1 % (0-2); Eosinophils Absolute Auto 200 /uL (0-450); Eosinophils Percent Auto 2.6 % (2-4); Hematocrit 38.8 % (36-46); Hemoglobin 12.8 g/dL (12.0-16.0); Lymphocytes Absolute Auto 1200 /uL (1100-4500); Lymphocytes Percent Auto 16.2 % (25-40); Mean Corpuscular Hemoglobin 27.7 PG (26-34); Mean Corpuscular Volume 83.8 fL (80-100); Monocytes Absolute Auto 600 /uL (0-900); Monocytes Percent Auto 7.6 % (3-14); Neutrophils Absolute Auto 5400 /uL (1500-7000); Neutrophils Percent Auto 72.5 % (50-75); Platelet Count 243 X10^3/uL (150-400); Red Blood Cell Count 4.63 X10^6/uL (4.0-5.2); Red Cell Distribution Width 15.5 % (11.6-14.8); White Blood Cell Count 7.4 X10^3/uL (4.5-11.0)
[2023-08-28 12:41] LABS: Adenovirus Not Detected (Not Detect); B. parapertussis Not Detected (Not Detecte); Bordetella pertussis Not Detected (Not Detect); Chlamydophila pneumoniae Not Detected (Not Detect); Coronavirus 229E Not Detected (Not Detect); Coronavirus HKU1 Not Detected (Not Detect); Coronavirus NL 63 Not Detected (Not Detect); Coronavirus OC43 Not Detected (Not Detect); Human Metapneumovirus Not Detected (Not Detect); Human Rhinovirus/Enterovirus Not Detected (Not Detect); Influenza A Not Detected (Not Detect); Influenza B Not Detected (Not Detect); Mycoplasma pneumoniae Not Detected (Not Detect); Parainfluenza Virus 1 Not Detected (Not Detect); Parainfluenza Virus 2 Not Detected (Not Detect); Parainfluenza Virus 3 Not Detected (Not Detect); Parainfluenza Virus 4 Not Detected (Not Detect); Respiratory Syncytial Virus Not Detected (Not Detect); SARS- CoV-2 Not Detected (Not Detecte)
--- NOTE | 2023-08-28 12:53 | PC.NURSE ---
Pt states she is feeling about the same, but feels better since the ambulance picked her up. Medics gave patient 1x dose of nitro. Pt has a prescription for nitro and forgets what to do with it. Pt pulled a nitro bottle out of her pocket and states here it is! I keep forgetting how it works.. Pt was educated about nitro use and expressed understanding, however she states I will forget again. Nitro bottle expiration date is 08/2024.
[2023-08-28 13:01] LABS: Blood Urea Nitrogen 14 mg/dL (7-17)
[2023-08-28 13:19] LABS: Creatine Kinase 46 U/L (30-135)
[2023-08-28 13:20] LABS: Alanine Aminotransferase 14 IU/L (<35); Albumin 3.5 g/dL (3.5-5.0); Albumin Globulin Ratio 1.2 (1.0-2.8); Alkaline Phosphatase 75 U/L (38-126); BUN Creatinine Ratio 17.9 (6-22); Bilirubin Total 0.7 mg/dL (0.2-1.3); Carbon Dioxide 29 mmol/L (22-32); Chloride 101 mmol/L (98-107); Estimated Glomerular Filt Rate > 60 mL/min (>60); Glucose 114 mg/dL (80-110); HEMOLYSIS < 15 (0-50); Lipase 41 U/L (23-300); Potassium 4.4 mmol/L (3.4-5.1); Sodium 137 mmol/L (137-145); Total Protein 6.5 g/dL (6.3-8.2)
--- NOTE | 2023-08-28 14:34 | PC.NURSE ---
Pt's ride is on their way, eta 1455. Pt requires home o2 2L NC. She has a concentrator with her which is partially charged, enough to make it home. Pt will remain on our O2 while waiting for her son to arrive. Pt sitting up in wheelchair, call light in reach.
[2023-08-29 15:07] LABS: Aspartate Aminotransferase 34 IU/L (14-36)
== END 2023-08-28 15:00 | disposition home or self-care (01) ==
PROVIDERS: Emergency Provider Emergency Medicine; PCP Nurse Practitioner Family
DX: I20.89 Other forms of angina pectoris (principal); J44.9 Chronic obstructive pulmonary disease, unspecified; Z20.822 Contact with and (suspected) exposure to COVID-19
CPT/HCPCS: 36415; 71045; 80053; 82550; 83690; 84484; 85025; 87633; 93005; 99284; 99285

== ENCOUNTER 2023-09-24 16:41 | Emergency (ER) | payer OTHER, SELFPAY ==
[2023-06-12 16:02] VITALS: BMI 25.8
[2023-09-24] VITALS (10 sets, daily range): BP systolic 141–170; BP diastolic 61–76; PULSE 57–68; RESP 18–36; TEMP 36.7; O2SAT 94–100; BMI 21.8
--- NOTE | 2023-09-24 17:15 | DI.RAD.S_ITS ---
PROCEDURE: XR CHEST 1V INDICATIONS: chest pain TECHNIQUE: One view of the chest was acquired. COMPARISON: [facility], CR, XR CHEST 1V, 08/28/2023, 11:36. FINDINGS: Surgical changes and devices: Midline sternotomy wires Lungs and pleura: Compared to prior radiograph 08/28/2023, no significant interval change. Decreased hazy opacity in the right upper lobe at site of prior pneumonia better seen on radiograph 06/13/2023 and earlier. No new focal dense airspace consolidation. No pleural effusions or pneumothorax. Mediastinum: Mediastinal contours appear normal. Heart size is normal. Aortic arch is calcified indicating atherosclerosis. Bones and chest wall: No suspicious bony lesions. Overlying soft tissues appear unremarkable. IMPRESSION: Compared to prior radiograph 08/28/2023, no significant interval change. Decreased hazy opacity in the right upper lobe at site of prior pneumonia better seen on radiograph 06/13/2023 and earlier. No new focal dense airspace consolidation. Approved by: Amanda Garsia M.D. on 09/24/2023 at 18:47
[2023-09-24] MEDS: ASPIRIN 81 MG CHEW TAB 324 MG PO (17:19)
[2023-09-24 17:24] LABS: Add Manual Diff / Slide Review NO; Basophils Absolute Auto 100 /uL (0-100); Basophils Percent Auto 1.1 % (0-2); Eosinophils Absolute Auto 500 /uL (0-450); Eosinophils Percent Auto 5.7 % (2-4); Hematocrit 36.7 % (36-46); Lymphocytes Absolute Auto 1400 /uL (1100-4500); Lymphocytes Percent Auto 15.6 % (25-40); Mean Corpuscular HGB Conc 32.7 % (30-36); Mean Corpuscular Volume 82.5 fL (80-100); Monocytes Absolute Auto 700 /uL (0-900); Monocytes Percent Auto 7.7 % (3-14); Neutrophils Absolute Auto 6200 /uL (1500-7000); Neutrophils Percent Auto 69.9 % (50-75); Platelet Count 356 X10^3/uL (150-400); Red Blood Cell Count 4.45 X10^6/uL (4.0-5.2); Red Cell Distribution Width 15.8 % (11.6-14.8); White Blood Cell Count 8.8 X10^3/uL (4.5-11.0)
[2023-09-24 17:25] LABS: Prothrombin Time 11.2 SECONDS (9.4-12.5)
[2023-09-24 17:28] LABS: PTT Partial Thromboplastin Tim 36 SECONDS (25.1-36.5)
[2023-09-24 17:31] LABS: Alanine Aminotransferase 14 IU/L (<35); Albumin 4.1 g/dL (3.5-5.0); Albumin Globulin Ratio 1.1 (1.0-2.8); Alkaline Phosphatase 82 U/L (38-126); Aspartate Aminotransferase 29 IU/L (14-36); BUN Creatinine Ratio 21.9 (6-22); Bilirubin Total 0.6 mg/dL (0.2-1.3); Blood Urea Nitrogen 21 mg/dL (7-17); Calcium 10.2 mg/dL (8.4-10.2); Carbon Dioxide 38 mmol/L (22-32); Chloride 94 mmol/L (98-107); Creatine Kinase 28 U/L (30-135); Estimated Glomerular Filt Rate 58 mL/min (>60); Globulin 3.7 g/dL (1.7-4.1); Glucose 116 mg/dL (80-110); HEMOLYSIS < 15 (0-50); Lipase 104 U/L (23-300); Potassium 3.9 mmol/L (3.4-5.1); Sodium 136 mmol/L (137-145); Total Protein 7.8 g/dL (6.3-8.2)
[2023-09-24 17:42] LABS: Troponin I 0.018 ng/mL (0.01-0.034)
--- NOTE | 2023-09-24 18:32 | ED.CHESTPAIN ---
HPI - Chest Pain General Chief Complaint: Chest Pain Stated Complaint: chest heaviness, dosen't feel well Time Seen by Provider: 09/24/23 17:49 Source: patient Mode of arrival: Family Vehicle Limitations: no limitations History of Present Illness HPI narrative: 87-year-old female with history of CAD, chronic oxygen dependence, hypertension, congestive heart failure (EF 30-35%), infrarenal AAA, presents by private vehicle for chest heaviness prior to arrival. Patient has well documented history of coronary disease, however she was deemed to be ineligible for intervention due to her AAA. Patient took baby aspirin prior to arrival. At the time of my exam patient denying any current chest pain. She was also requesting a refill of 3 different medications because her primary care doctor would not fill them for her without appointment. Related Data Home Medications Medication Instructions Recorded Confirmed aspirin 81 mg tablet,delayed 81 mg PO QDAY ##0 07/11/17 06/12/23 release multivitamin 1 tab PO DAILY 07/07/18 06/12/23 nitroglycerin 0.4 mg sublingual 0.4 mg sublingual Q5-15M PRN Chest 07/07/18 06/12/23 tablet (Nitrostat) Pain omega 0-gwt-bik-fish oil 1,000 mg 1,000 mg PO DAILY 07/07/18 06/12/23 (120 mg-180 mg) capsule (Fish Oil) vitamin E 268 mg (400 unit) capsule 400 unit PO DAILY 07/07/18 06/12/23 atorvastatin 20 mg tablet (Lipitor) 40 mg PO QPM 05/04/22 06/12/23 diltiazem HCl 120 mg 120 mg PO QAM 05/04/22 06/12/23 capsule,extended release 24 hr (Cartia XT) levothyroxine 88 mcg tablet 88 mcg PO QAM 05/04/22 06/12/23 lisinopril 40 mg tablet 20 mg PO QAM 05/04/22 06/12/23 albuterol 90 mcg/actuation aerosol 90 mcg inhalation Q4-6H PRN 05/20/22 06/12/23 inhaler Shortness Of Breath clopidogrel 75 mg tablet 75 mg PO QAM 05/20/22 06/12/23 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 10 mg tablet 10 mg PO TID PRN Muscle Spasm 05/20/22 06/12/23 ipratropium 0.5 mg-albuterol 3 mg 3 ml inhalation BID 05/20/22 06/12/23 (2.5 mg base)/3 mL nebulization soln metoprolol succinate 25 mg 25 mg PO DAILY 05/20/22 06/12/23 tablet,extended release 24 hr torsemide 20 mg tablet 40 mg PO DAILY 04/29/23 06/12/23 fluticasone 500 mcg-salmeterol 50 1 ea inhalation BID PRN Shortness 05/16/23 06/12/23 mcg/dose blistr powdr for Of Breath inhalation (Advair Diskus) prednisone 20 mg tablet 20 mg PO DAILY PRN Shortness Of 05/16/23 06/12/23 Breath Or Wheezing isosorbide mononitrate 120 mg 240 mg PO QAM 06/12/23 06/12/23 tablet,extended release 24 hr Previous Rx's Medication Instructions Recorded atorvastatin 40 mg tablet 40 mg PO DAILY #30 tabs 09/24/23 isosorbide mononitrate 120 mg 120 mg PO DAILY #30 tabs 09/24/23 tablet,extended release 24 hr levothyroxine 50 mcg capsule 50 mcg PO DAILY #30 caps 09/24/23 Allergies Allergy/AdvReac Type Severity Reaction Status Date / Time amlodipine Allergy Intermediate Verified 08/28/23 11:49 doxazosin [From Cardura] Allergy Intermediate Rash Verified 08/28/23 11:49 doxycycline Allergy Intermediate Rash Verified 08/28/23 11:49 gemfibrozil Allergy Intermediate Rash Verified 08/28/23 11:49 levofloxacin Allergy Intermediate Rash Verified 08/28/23 11:49 losartan Allergy Intermediate Rash Verified 08/28/23 11:49 montelukast [From Singulair] Allergy Intermediate Difficulty Verified 08/28/23 11:49 Breathing Sulfa (Sulfonamide Allergy Intermediate rash Verified 08/28/23 11:49 Antibiotics) sulfamethoxazole Allergy Intermediate Rash Verified 08/28/23 11:49 [From Bactrim] trimethoprim [From Bactrim] Allergy Intermediate Rash Verified 08/28/23 11:49 carvedilol Allergy Mild Rash Verified 08/28/23 11:49 acarbose AdvReac Intermediate Abdominal Verified 08/28/23 11:49 Pain chlorthalidone AdvReac Intermediate Redness of Verified 08/28/23 11:49 Skin metoprolol AdvReac Intermediate Verified 08/28/23 11:49 nifedipine AdvReac Intermediate Chills Verified 08/28/23 11:49 budesonide [From Symbicort] AdvReac Mild Anxiety Verified 08/28/23 11:49 choline fenofibrate AdvReac Mild Gastrointestinal Verified 08/28/23 11:49 [From Trilipix] Upset formoterol [From Symbicort] AdvReac Mild Anxiety Verified 08/28/23 11:49 Review of Systems Review of Systems Narrative: negative except as noted above Patient History Medical History Bilateral carpal tunnel syndrome Aneurysm of infrarenal abdominal aorta Hyperlipidemia 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 CAD (coronary artery disease) HTN (hypertension) Elevated TSH Unstable angina Surgical History Status post cholecystectomy H/O hysterectomy with oophorectomy H/O three vessel coronary artery bypass Hx of heart artery stent Family History Father Lung cancer Mother COPD (chronic obstructive pulmonary disease) Social History household members: children Smoking Status: Former smoker alcohol intake: never Smoking Status: Former smoker tobacco type: cigarettes alcohol intake frequency: 0-2 drinks per day Substance Use Type: does not use Exam Initial Vital Signs Initial Vital Signs: Vital Signs Temperature 98.0 F 09/24/23 16:43 Pulse Rate 68 09/24/23 16:43 Respiratory Rate 18 09/24/23 16:43 Blood Pressure 164/70 H 09/24/23 16:43 Pulse Oximetry 98 09/24/23 16:43 Oxygen Delivery Method Nasal Cannula 09/24/23 16:43 Oxygen Flow Rate 2 09/24/23 16:43 Const: Awake, alert, no acute distress, frail Cardiac: regular rate, regular rhythm RESP: unlabored, on supplemental nasal cannula, soft expiratory wheezes GI: Atraumatic, soft, nontender Skin: Warm, Dry, intact, no rashes Neuro: AO x3, CN II-XII grossly intact, moves all extremities Course Orders Ordered: Discontinued Medications Albuterol/Ipratropium (Albuterol/Ipratropium 3 Ml Ampul) 3 ml INH NOW ONE Stop: 09/24/23 18:40 Last Admin: 09/24/23 18:46 Dose: 3 ml Documented By: TonyaZF Aspirin (Aspirin 81 Mg Chew Tab) 324 mg PO NOW ONE Stop: 09/24/23 17:15 Last Admin: 09/24/23 17:19 Dose: 243 mg Documented By: SB Vital Signs Vital signs: Vital Signs - 8 hr 09/24/23 16:43 09/24/23 16:57 09/24/23 16:58 Temperature 98.0 F Pulse Rate 68 64 66 Respiratory Rate 18 Blood Pressure 164/70 H Pulse Oximetry 98 99 99 Oxygen Delivery Method Nasal Cannula Oxygen Flow Rate 2 09/24/23 16:58 09/24/23 17:00 09/24/23 17:00 Temperature Pulse Rate 66 Respiratory Rate 24 Blood Pressure 168/74 H 163/61 H Pulse Oximetry 99 Oxygen Delivery Method Nasal Cannula Oxygen Flow Rate 2 09/24/23 17:30 09/24/23 17:30 09/24/23 18:00 Temperature Pulse Rate 65 62 Respiratory Rate 23 Blood Pressure 170/76 H Pulse Oximetry 99 100 Oxygen Delivery Method Nasal Cannula Oxygen Flow Rate 2 09/24/23 18:01 09/24/23 18:01 Temperature Pulse Rate 62 Respiratory Rate 23 Blood Pressure 141/71 H Pulse Oximetry 99 Oxygen Delivery Method Nasal Cannula Oxygen Flow Rate 2 MDM - Chest Pain Lab Data 09/24/23 17:00 09/24/23 17:00 Labs: Lab Results 09/24/23 Range/Units 17:00 WBC 8.8 (4.5-11.0) X10^3/uL RBC 4.45 (4.0-5.2) X10^6/uL Hgb 12.0 (12.0-16.0) g/dL Hct 36.7 (36-46) % MCV 82.5 (80-100) fL MCH 27.0 (26-34) PG MCHC 32.7 (30-36) % RDW 15.8 H (11.6-14.8) % Plt Count 356 (150-400) X10^3/uL Neut % (Auto) 69.9 (50-75) % Lymph % (Auto) 15.6 L (25-40) % [facility] % (Auto) 7.7 (3-14) % Eos % (Auto) 5.7 H (2-4) % Baso % (Auto) 1.1 (0-2) % Neut # (Auto) 6200 (7420-7313) /uL Lymph # (Auto) 1400 (7142-9780) /uL [facility] # (Auto) 700 (0-900) /uL Eos # (Auto) 500 H (0-450) /uL Baso # (Auto) 100 (0-100) /uL PT 11.2 (9.4-12.5) SECONDS INR 1.0 (0.9-1.3) APTT 36 (25.1-36.5) SECONDS Sodium 136 L (137-145) mmol/L Potassium 3.9 (3.4-5.1) mmol/L Chloride 94 L (98-107) mmol/L Carbon Dioxide 38 H (22-32) mmol/L BUN 21 H (7-17) mg/dL Creatinine 0.96 (0.52-1.04) mg/dL Estimated GFR 58 L (>60) mL/min BUN/Creatinine Ratio 21.9 (6-22) Glucose 116 H (80-110) mg/dL Calcium 10.2 (8.4-10.2) mg/dL Magnesium 2.0 (1.6-2.3) mg/dL Total Bilirubin 0.6 (0.2-1.3) mg/dL AST 29 (14-36) IU/L ALT 14 (<35) IU/L Alkaline Phosphatase 82 (38-126) U/L Total Creatine Kinase 28 L (30-135) U/L Troponin I 0.018 (0.01-0.034) ng/mL Total Protein 7.8 (6.3-8.2) g/dL Albumin 4.1 (3.5-5.0) g/dL Globulin 3.7 (1.7-4.1) g/dL Albumin/Globulin Ratio 1.1 (1.0-2.8) Lipase 104 (23-300) U/L ECG Data Interpretation: Sinus rhythm, rate 63 beats per minute, right bundle branch block, no STEMI. Compared to previous EKG from 08/28/2023 no significant change found MDM Narrative Medical decision making narrative: Patient with known coronary disease in patient who has previously been determined by Cardiology to not be a candidate for any other intervention such as PCI or CABG. EKG is sinus rhythm. Left bundle branch block with T-wave inversions, however these were previously seen on prior EKG and are unchanged. Troponin 0.018, which is actually decreased from when patient was here 08/28/2023 (0.830). Chest x-ray shows improvement from prior. Patient currently pain-free. Patient counseled on lab and EKG results. She states she feels better and she is eager to go home. She requested that I refill some of her medications including atorvastatin, isosorbide, and levothyroxine, which were sent to the patient's pharmacy of choice. Offered breathing treatment prior to discharge, which patient accepted. Patient counseled to follow up with the primary and cardiology services Discharge Plan Departure Patient Disposition: Home Clinical Impression: Chest pain Instructions: DI for Chest Pain Prescriptions: New isosorbide mononitrate 120 mg tablet extended release 24 hr 120 mg PO DAILY Qty: 30 0RF atorvastatin 40 mg tablet 40 mg PO DAILY Qty: 30 0RF levothyroxine 50 mcg capsule 50 mcg PO DAILY Qty: 30 0RF No Action aspirin 81 MG tablet,delayed release (DR/EC) 81 mg PO QDAY Qty: 0 Rx Instructions: morning omega 8-fik-sdd-fish oil [Fish Oil] 1,000 mg (120 mg-180 mg) Capsule 1,000 mg PO DAILY nitroglycerin [Nitrostat] 0.4 mg Tablet, Sublingual 0.4 mg SUBLINGUAL Q5-15M PRN (Reason: Chest Pain) Patient Comments: Patient has not ever taken nitro at home, education provided to her today. She was administered 2x nitro by EMS en route, and 1x nitro while in the ER. \\23 vitamin E 400 unit Capsule 400 unit PO DAILY multivitamin Tablet,Chewable 1 tab PO DAILY fluticasone propion-salmeterol [Advair Diskus] 500-50 mcg/dose blister with device 1 ea INHALATION BID PRN (Reason: Shortness Of Breath) Patient Comments: INHALE 1 DOSE BY MOUTH TWICE DAILY DIRECTED prednisone 20 mg tablet 20 mg PO DAILY PRN (Reason: Shortness Of Breath Or Wheezing) atorvastatin [Lipitor] 20 mg tablet 40 mg PO QPM Patient Comments: patient states she forgets to take diltiazem HCl [Cartia XT] 120 mg capsule,extended release 24hr 120 mg PO QAM Patient Comments: TAKE 1 CAPSULE BY MOUTH ONCE DAILY levothyroxine 88 mcg tablet 88 mcg PO QAM Patient Comments: TAKE 1 TABLET BY MOUTH ONCE DAILY lisinopril 40 mg tablet 20 mg PO QAM Patient Comments: TAKE 1 TABLET BY MOUTH ONCE DAILY clopidogrel 75 mg tablet 75 mg PO QAM ipratropium-albuterol 0.5 mg-3 mg(2.5 mg base)/3 mL solution for nebulization 3 ml INHALATION BID metoprolol succinate 25 mg tablet extended release 24 hr 25 mg PO DAILY Patient Comments: pt has not started, 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
[2023-09-24] MEDS: ALBUTEROL/IPRATROPIUM 3 ML AMPUL INH (18:46)
== END 2023-09-24 19:16 | disposition home or self-care (01) ==
PROVIDERS: Emergency Medicine; Emergency Provider Emergency Medicine; PCP Nurse Practitioner Family
DX: R07.9 Chest pain, unspecified (principal); Z79.899 Other long term (current) drug therapy
CPT/HCPCS: 36415; 71045; 80053; 82550; 83690; 83735; 84484; 85025; 85610; 85730; 93005; 94640; 99284; 99285

== ENCOUNTER → 2023-10-13 08:15 | Outpatient (CLI) | payer OTHER, SELFPAY ==
[2023-06-12 16:02] VITALS: BMI 25.8
--- NOTE | 2023-10-13 08:17 | DI.RAD.S_ITS ---
PROCEDURE: FL BARIUM SWALLOW W SPEECH INDICATIONS: Dysphagia, unspecified COMPARISON: None. TECHNIQUE: Examination was conducted in conjunction with speech pathology per standard protocol. In the lateral projection, filming was performed of the patient swallowing. AP projection filming may also be performed with patient swallowing. COMPARISON: FINDINGS: Function: The oral preparatory phase appears normal, with proper containment. The subsequent oral propulsive phase, pharyngeal phase, and esophageal phase of swallowing also appear normal with all proffered substances. Aspiration with thin liquid barium. No pathologic vallecular pooling. Morphology: No cricopharyngeal bar is identified. No cervical esophageal webs. No Zenker's diverticulum. No strictures. IMPRESSION: Aspiration with thin liquid barium. Please see speech pathologist's note for further discussion. Dictated by: Amarjit Duenas M.D. on 10/13/2023 at 12:31 Approved by: Amarjit Duenas M.D. on 10/13/2023 at 12:32
--- NOTE | 2023-10-13 14:49 | ST.SWALLOW ---
Visit Care Team Role Provider Type EARLINE Mendez Primary Care Provider Non-Staff Specialty: Nursing Address: [address] [place], [place] [id number], [place], [address] Email: Christopher Flores MD Attending Provider Non-Staff Referring Provider Specialty: Medical Address: [address] [place], [place] [address], [place], [address] Email: Modified Barium Swallow Study [employer] RENTAL CLERK Modified Barium Swallow Study Start: 10/13/23 09:44 Freq: Status: Active Protocol: Document 10/13/23 10:58 LNK (Rec: 10/13/23 11:24 [id number]) Modified Barium Swallow Study Total Time Visit Start Time 09:00 Visit Stop Time 09:00 Total Visit Minutes [address] Flores Reason for Referral dysphagia Setting Setting Outpatient Care Patient Information Identification Type Name,Date of Patient History Pt was seen for a Modified Barium Swallow Study at the referral of Dr. Flores. Pt wasn't sure why she was referred for the evaluation. No referral notes were provided re:reason for MBSS. A review of pt's IH chart indicated that she had been seen in the ED three times since May 2023 when she was admitted for pneumonia. Since then pt was seen on for COPD exacerbation. A chest xray at that time indicated chonic interstitial lung disease but no acute process. Pt was then seen in the ED on 09/24/23 chest heaviness. Chest xray results indicated diminished hazy opacity in the right upper lobe at the site of prior pneumonia. It is likely pt was referred to determine aspiration risk and/ or r/o silent aspiration. Subjective Observations Pt was entered the fluoro room vusing a walked carrying her O2 device. Pt stated she is on 2L O2 at all times 24 hours /day. Pt was provided with instructions and procedures. She indicted she understood and agreed to proceed. Patient Positioning Position View Lat-A/P Imaging Lateral View Textures Administered Trials Presented Thin Liquid via Spoon (IDDSI 0 ),Thin Liquid via Cup (IDDSI 0 ),Mildly Thick Liquid via Spoon (IDDSI 2),Mildly Thick Liquid via Cup (IDDSI 2), Extremely Thick Liquid via Spoon (IDDSI 4),Regular (IDDSI 7) Barium Tablet Yes The IDDSI Framework Protocol: IDDSI.1 Oral Impairment Source: The Modified Barium Swallow Impairment Profile (MBSImP??) Lip Closure Interlabial escape; no progression to anterior lip Tongue Control During Bolus Hold Posterior escape of greater than half of bolus Bolus Preparation/Mastication Timely & efficient chewing & mashing Bolus Transport/Lingual Motion Delayed initiation of tongue motion Oral Residue Complete oral clearance Initiation of Pharyngeal Swallow Bolus head at pyriforms Additional Oral Impairment Observations OME and DKS were observed to be WNL. Dentition was natural and in good hygiene. Mastication demonstrated rotary chew with good bolus formation, control and AP transition. Swallow initiation was delayed with premature spillage to the pyirforms Pharyngeal Impairment Source: The Modified Barium Swallow Impairment Profile (MBSImP??) Soft Palate Elevation No bolus between soft palate & pharyngeal wall Laryngeal Elevation Part.sup.move.thyroid cart/ part.approx.arytenoids to epiglot.petiole Anterior Hyoid Excursion Partial anterior movement Epiglottic Movement Partial inversion Laryngeal Vestibular Closure Incomplete; narrow column air/ contrast in laryngeal vestibule Pharyngeal Stripping Wave Present - diminished Pharyngoesophageal Segment Opening Partial distention/partial duration; partial obstruction of flow Tongue Base Retraction Wide column of contrast/air betwn tongue base & post. pharyngeal wall Pharyngeal Residue Trace residue within/on pharyngeal structures Location Valleculae Additional Pharyngeal Impairment Base of tongue retraction was Observations reduced affecting the hyolaryngeal elevation and movement. Epiglottic inversion was noted to be inconsistent. The epiglottis was observed to be horizontal to complete with laryngeal penetration and tracheal aspiration noted when the epiglottis was horizontal ( thin liquids). Overall posterior pharyngeal wall stripping was also diminished negatively impacting bolus control and increasing pharyngeal residue in the valeculla. [place] thick liquids were safely tolerated. With a chin tuck position, the pt was better able to control the bolus across trials with no penetration not aspiration were observed. Pt was able to safely tolerated thin liquids with a chin tuck. This was demonstrated and discussed with the pt as a compensatory strategy to use to reduce aspiration risk. A/P View Textures Administered Trials Presented Thin Liquid via Spoon (IDDSI 0 ),Thin Liquid via Cup (IDDSI 0 ),Extremely Thick Liquid via Spoon (IDDSI 4),Regular (IDDSI 7) The IDDSI Framework Protocol: IDDSI.1 A/P View Observations Pharyngeal Contraction Complete Esophageal Clearance Upright Position Complete clearance; esophageal coating Vocal Fold Function Good Esophageal Function WFL Additional A-P Observations Esophageal contents were noted to clear the esophagus in a timely manner. Clinical Impressions Dysphagia Type Pharyngeal Findings Pt presented with mild- moderate pharyngeal phase dysphagia characterized by reduced overall strength and inconsistent function of the pharyngeal structures. Penetration and aspiration were observed with thin liquids in an upright position . In the upright position, the pt safely tolerated nectar thick liquids. With a chin tuck position, the pt was able to safely tolerate thin liquids without penetration/ aspiration. Rehabilitation Potential Fair Patient Appropriate for Therapy Yes: Swallow exercises and safe swallow technique education recommended Recommendations Diet Liquids Order Thin (IDDSI 0) Diet Order Regular (IDDSI 7) Medication Recommendation As Tolerated Comments Thin liquids only with chin tuck, or nectar thick liquids recommended Additional Dietary Needs Reminders to Use Strategies Aspiration Precautions Recommended Precautions Upright at 90 Degrees,Small Bites/Sips,Chin Tuck,Liquids from Cup Treatment Plan Therapy Recommendations Outpatient Speech Therapy,Base of Tongue Exercises Therapy Strategy Recommendations Sitting Upright (90 deg),Chin Tuck,Double Swallow,Liquids from Cup,Liquids from Straw Additional Strategies Recommended Referral to for swallow therapy
== END ==
LOC: RAD 08:15
PROVIDERS: PCP Nurse Practitioner Family; Referring Provider Family Medicine; Visit Provider Family Medicine
DX: R13.10 Dysphagia, unspecified (principal)
CPT/HCPCS: 74230; 92611

== ENCOUNTER 2024-01-02 11:23 | Emergency (ER) | payer MEDICARE, SELFPAY ==
[2023-06-12 16:02] VITALS: BMI 25.8
[2024-01-02] VITALS (11 sets, daily range): BP systolic 151–206; BP diastolic 64–85; PULSE 49–61; RESP 20–30; TEMP 36.6; O2SAT 92–100; BMI 22.2
--- NOTE | 2024-01-02 11:34 | ED.CHESTPAIN ---
HPI - Chest Pain General Chief Complaint: Shortness of Breath/Dyspnea Stated Complaint: Breathing problems,pt uses home O2 Time Seen by Provider: 01/02/24 11:33 History of Present Illness HPI narrative: Patient is 88 year history of COPD chronically on home oxygen, CAD presenting today with chest discomfort. She reports that over last couple days she is noticed that she has been belching more no nausea vomiting real abdominal pain. However this morning she felt some heaviness across her chest. It did not radiate. She denies any worsening shortness of breath. She has also had like headache off and on but no fever or chills. She continues to pass stool. Related Data Home Medications Medication Instructions Recorded Confirmed aspirin 81 mg tablet,delayed 81 mg PO QDAY ##0 07/11/17 06/12/23 release multivitamin 1 tab PO DAILY 07/07/18 06/12/23 nitroglycerin 0.4 mg sublingual 0.4 mg sublingual Q5-15M PRN Chest 07/07/18 06/12/23 tablet (Nitrostat) Pain omega 4-rab-oyh-fish oil 1,000 mg 1,000 mg PO DAILY 07/07/18 06/12/23 (120 mg-180 mg) capsule (Fish Oil) vitamin E 268 mg (400 unit) capsule 400 unit PO DAILY 07/07/18 06/12/23 atorvastatin 20 mg tablet (Lipitor) 40 mg PO QPM 05/04/22 06/12/23 diltiazem HCl 120 mg 120 mg PO QAM 05/04/22 06/12/23 capsule,extended release 24 hr (Cartia XT) levothyroxine 88 mcg tablet 88 mcg PO QAM 05/04/22 06/12/23 lisinopril 40 mg tablet 20 mg PO QAM 05/04/22 06/12/23 albuterol 90 mcg/actuation aerosol 90 mcg inhalation Q4-6H PRN 05/20/22 06/12/23 inhaler Shortness Of Breath clopidogrel 75 mg tablet 75 mg PO QAM 05/20/22 06/12/23 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 10 mg tablet 10 mg PO TID PRN Muscle Spasm 05/20/22 06/12/23 ipratropium 0.5 mg-albuterol 3 mg 3 ml inhalation BID 05/20/22 06/12/23 (2.5 mg base)/3 mL nebulization soln metoprolol succinate 25 mg 25 mg PO DAILY 05/20/22 06/12/23 tablet,extended release 24 hr torsemide 20 mg tablet 40 mg PO DAILY 04/29/23 06/12/23 fluticasone 500 mcg-salmeterol 50 1 ea inhalation BID PRN Shortness 05/16/23 06/12/23 mcg/dose blistr powdr for Of Breath inhalation (Advair Diskus) prednisone 20 mg tablet 20 mg PO DAILY PRN Shortness Of 05/16/23 06/12/23 Breath Or Wheezing isosorbide mononitrate 120 mg 240 mg PO QAM 06/12/23 06/12/23 tablet,extended release 24 hr Previous Rx's Medication Instructions Recorded atorvastatin 40 mg tablet 40 mg PO DAILY #30 tabs 09/24/23 isosorbide mononitrate 120 mg 120 mg PO DAILY #30 tabs 09/24/23 tablet,extended release 24 hr levothyroxine 50 mcg capsule 50 mcg PO DAILY #30 caps 09/24/23 Allergies Allergy/AdvReac Type Severity Reaction Status Date / Time amlodipine Allergy Intermediate Verified 08/28/23 11:49 doxazosin [From Cardura] Allergy Intermediate Rash Verified 08/28/23 11:49 doxycycline Allergy Intermediate Rash Verified 08/28/23 11:49 gemfibrozil Allergy Intermediate Rash Verified 08/28/23 11:49 levofloxacin Allergy Intermediate Rash Verified 08/28/23 11:49 losartan Allergy Intermediate Rash Verified 08/28/23 11:49 montelukast [From Singulair] Allergy Intermediate Difficulty Verified 08/28/23 11:49 Breathing Sulfa (Sulfonamide Allergy Intermediate rash Verified 08/28/23 11:49 Antibiotics) sulfamethoxazole Allergy Intermediate Rash Verified 08/28/23 11:49 [From Bactrim] trimethoprim [From Bactrim] Allergy Intermediate Rash Verified 08/28/23 11:49 carvedilol Allergy Mild Rash Verified 08/28/23 11:49 acarbose AdvReac Intermediate Abdominal Verified 08/28/23 11:49 Pain chlorthalidone AdvReac Intermediate Redness of Verified 08/28/23 11:49 Skin metoprolol AdvReac Intermediate Verified 08/28/23 11:49 nifedipine AdvReac Intermediate Chills Verified 08/28/23 11:49 budesonide [From Symbicort] AdvReac Mild Anxiety Verified 08/28/23 11:49 choline fenofibrate AdvReac Mild Gastrointestinal Verified 08/28/23 11:49 [From Trilipix] Upset formoterol [From Symbicort] AdvReac Mild Anxiety Verified 08/28/23 11:49 Patient History Medical History Bilateral carpal tunnel syndrome Aneurysm of infrarenal abdominal aorta Hyperlipidemia 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 CAD (coronary artery disease) HTN (hypertension) Elevated TSH Unstable angina Surgical History Status post cholecystectomy H/O hysterectomy with oophorectomy H/O three vessel coronary artery bypass Hx of heart artery stent Family History Father Lung cancer Mother COPD (chronic obstructive pulmonary disease) Social History household members: children Smoking Status: Former smoker alcohol intake: never Smoking Status: Former smoker tobacco type: cigarettes alcohol intake frequency: 0-2 drinks per day Substance Use Type: does not use Exam Initial Vital Signs Initial Vital Signs: Vital Signs Pulse Rate 61 01/02/24 11:28 Pulse Oximetry 92 01/02/24 11:28 GENERAL: Alert pleasant 88-year-old female HEENT: Head atraumatic,EOMI, pupils reactive, face symmetric, moist mucous membranes CARDIOVASCULAR: Regular rate and rhythm without murmurs, rubs or gallops. RESPIRATORY: Breath sounds equal bilaterally, no wheezes rales or rhonchi. ABDOMEN: Soft, nontender. Normoactive bowel sounds all 4 quadrants. No guarding or rebound. EXTREMITIES: Normal range of motion, no clubbing or edema. Neurovascularly intact NEUROLOGICAL: Alert and oriented x4.Normal gait and speech. SKIN: Warm, dry, no laceration, no petechiae, no rashes or lesions. Course Orders Ordered: ED Orders 01/02/24 11:35 XR chest 1V Stat Complete Blood Count AUTO DIFF Stat Comprehensive Metabolic Panel Stat Lipase Stat Troponin & CK Cardiac Panel Stat EKG-12 Lead Stat 01/02/24 12:28 CT abdomen pelvis w con Stat 01/02/24 13:30 Trop I [Troponin I] Stat Vital Signs Vital signs: Vital Signs - 8 hr 01/02/24 11:28 01/02/24 11:30 01/02/24 11:30 Temperature Pulse Rate 61 59 L Respiratory Rate Blood Pressure 206/85 H Pulse Oximetry 92 97 Oxygen Delivery Method Oxygen Flow Rate 01/02/24 11:55 01/02/24 12:00 01/02/24 12:01 Temperature 97.9 F Pulse Rate 56 L 56 L Respiratory Rate 20 24 Blood Pressure 206/85 H 166/71 H Pulse Oximetry 98 99 Oxygen Delivery Method Nasal Cannula Oxygen Flow Rate 2 01/02/24 12:01 01/02/24 12:30 01/02/24 12:31 Temperature Pulse Rate 58 L 52 L 52 L Respiratory Rate 26 H 20 22 Blood Pressure Pulse Oximetry 98 98 98 Oxygen Delivery Method Oxygen Flow Rate 01/02/24 12:31 01/02/24 13:00 01/02/24 13:30 Temperature Pulse Rate 57 L 51 L Respiratory Rate 30 H 25 H Blood Pressure 151/64 H Pulse Oximetry 98 97 Oxygen Delivery Method Nasal Cannula Oxygen Flow Rate 2 01/02/24 14:00 01/02/24 14:15 01/02/24 14:15 Temperature Pulse Rate 53 L 49 L Respiratory Rate 20 20 Blood Pressure 160/72 H Pulse Oximetry 100 99 Oxygen Delivery Method Nasal Cannula Oxygen Flow Rate 2 MDM - Chest Pain Lab Data 01/02/24 11:35 01/02/24 11:35 Labs: Lab Results 01/02/24 01/02/24 Range/Units 11:35 13:30 WBC 6.1 (4.5-11.0) X10^3/uL RBC 4.36 (4.0-5.2) X10^6/uL Hgb 12.2 (12.0-16.0) g/dL Hct 36.6 (36-46) % MCV 83.9 (80-100) fL MCH 27.9 (26-34) PG MCHC 33.2 (30-36) % RDW 16.3 H (11.6-14.8) % Plt Count 213 (150-400) X10^3/uL Neut % (Auto) 75.5 H (50-75) % Lymph % (Auto) 14.9 L (25-40) % [place] % (Auto) 7.4 (3-14) % Eos % (Auto) 1.5 L (2-4) % Baso % (Auto) 0.7 (0-2) % Neut # (Auto) 4600 (6875-0739) /uL Lymph # (Auto) 900 L (1907-6902) /uL [place] # (Auto) 500 (0-900) /uL Eos # (Auto) 100 (0-450) /uL Baso # (Auto) 0 (0-100) /uL Sodium 141 (137-145) mmol/L Potassium 3.8 (3.4-5.1) mmol/L Chloride 101 (98-107) mmol/L Carbon Dioxide 33 H (22-32) mmol/L BUN 24 H (7-17) mg/dL Creatinine 1.43 H (0.52-1.04) mg/dL Estimated GFR 35 L (>60) mL/min BUN/Creatinine Ratio 16.8 (6-22) Glucose 138 H (80-110) mg/dL Calcium 10.4 H (8.4-10.2) mg/dL Total Bilirubin 0.9 (0.2-1.3) mg/dL AST 71 H (14-36) IU/L ALT 15 (<35) IU/L Alkaline Phosphatase 69 (38-126) U/L Total Creatine Kinase 55 (30-135) U/L Troponin I 0.041 H 0.034 (0.01-0.034) ng/mL Total Protein 7.2 (6.3-8.2) g/dL Albumin 4.3 (3.5-5.0) g/dL Globulin 2.9 (1.7-4.1) g/dL Albumin/Globulin Ratio 1.5 (1.0-2.8) Lipase 110 (23-300) U/L Imaging Data Chest x-ray: Radiologist's Impression: PROCEDURE: XR CHEST 1V INDICATIONS: chest pain TECHNIQUE: One view of the chest was acquired. COMPARISON: [facility], , XR CHEST 1V, 09/24/2023, 17:31. [facility], , XR CHEST 1V, 08/28/2023, 11:36. FINDINGS: Surgical changes and devices: CABG changes Lungs and pleura: Mildly prominent interstitium. No dense airspace disease or pleural effusion. Mediastinum: Cardiomediastinal contours are unchanged. Heart size is at the upper limit of normal. Bones and chest wall: Degenerative changes. IMPRESSION: Limited single view radiograph. Mildly prominent interstitium could represent atypical infection versus edema. Consider future imaging surveillance to assess for resolution. Dictated by: Bennett Whatley M.D. on 01/02/2024 at 12:24 CT scan - abdomen/pelvis: Radiologist's Impression: PROCEDURE: CT ABDOMEN PELVIS W CON INDICATIONS: ab pain TECHNIQUE: After the administration of intravenous contrast, axial sections acquired from the lung bases to the pubic symphysis. Coronal and sagittal reformats were performed. For radiation dose reduction, the following was used: automated exposure control, adjustment of mA and/or kV according to patient size. COMPARISON: [facility], CT, CT ABDOMEN PELVIS W CON, 10/02/2022, 13:53. FINDINGS: Image quality: Diagnostic Lower chest: Lower lung fibrosis, scarring, and atelectasis again seen. Partially seen cardiomegaly. Nonspecific wall thickening at the gastroesophageal junction. Suspected coronary calcifications. Liver: Liver appears unremarkable. Gallbladder and biliary system: Gallbladder is absent. 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 No hydronephrosis Vessels and lymph nodes: Abdominal aortic aneurysm again seen, with partial thrombus maximum AP dimension on sagittal view is 6.5 cm, possible slightly increased compared to prior. Heterogeneous density is seen in the partial thrombus. A small saccular component is seen inferior to the main aneurysm sac. Atherosclerotic calcifications are present. No pathologic lymph nodes by size criteria Bowel and peritoneum: No evidence of small bowel obstruction. No pathologic ascites. Colonic diverticula. The appendix is nondilated Body wall: Small fat containing inguinal and umbilical hernias. Pelvis: Bladder is unremarkable. Uterus is absent Bones: Degenerative changes. No acute or suspicious findings. L4 mild height loss again seen. IMPRESSION: No acute small bowel obstruction. There is wall thickening at the gastroesophageal junction, possibly infectious/inflammatory for example from reflux. This could be better evaluated with endoscopy if needed. Partially thrombosed, heterogeneous abdominal aortic aneurysm appears slightly larger than 2022. Consider vascular follow-up if not already performed. Other findings above. Dictated by: Bennett Whatley M.D. on 01/02/2024 at 12:58 ECG Data Interpretation: Normal sinus rhythm rate 56 MS interval 224 QRS [address] depression in aVL, persistent right bundle-branch block persistent Q-wave in lead 3 no new changes MDM Narrative Medical decision making narrative: Patient 88-year-old female history of coronary artery disease COPD on home oxygen presenting today with chest heaviness. Her discomfort has resolved since being in the ED. She is known coronary artery disease. Patient reports that she is got some vessels that they were unable to stent. She is followed by cardiology here in [place] Blood work has been reviewed creatinine today is 1.43 previously 0.96 slightly elevated other electrolytes within normal limits bilirubin 0.9, AST 71, ALT 15, troponin 0.041 with repeat 0.034 Imaging reviewed x-ray chest does show possible atypical pneumonia versus edema, CT abdomen does not show any sort of obstruction EKG has been reviewed and appear similarly [address] Case updated patient's symptoms test results recommends medical management only no need for any further evaluation Patient has known coronary artery disease presents today with belching and chest heaviness. Initial mild elevation troponin that has now decreased. EKG changes remain the same. There was concern with the belching for possible obstruction however CT does not show any evidence of obstruction. At this time currently allergy recommends maximum medical management only no need for observation or stress test Discharge Plan Departure Patient Disposition: Home Clinical Impression: Atypical chest pain Instructions: DI for Atypical Chest Pain Activity Restrictions/Additional Instructions: *You have been diagnosed with atypical chest pain *What to do: At this time please follow-up with Cardiology chest pain gets worse you may need to return to the ED. *Continue to take medications as directed Continue aspirin and all medication *Follow up with your primary care provider in 2-3 days or call [phone] *Return to ER if you should have increasing chest pain shortness of breath vomiting or any new, worsening or concerning symptoms Prescriptions: No Action aspirin 81 MG tablet,delayed release (DR/EC) 81 mg PO QDAY Qty: 0 Rx Instructions: morning omega 0-yer-gta-fish oil [Fish Oil] 1,000 mg (120 mg-180 mg) Capsule 1,000 mg PO DAILY nitroglycerin [Nitrostat] 0.4 mg Tablet, Sublingual 0.4 mg SUBLINGUAL Q5-15M PRN (Reason: Chest Pain) Patient Comments: Patient has not ever taken nitro at home, education provided to her today. She was administered 2x nitro by EMS en route, and 1x nitro while in the ER. 10\12\23 vitamin E 400 unit Capsule 400 unit PO DAILY multivitamin Tablet,Chewable 1 tab PO DAILY fluticasone propion-salmeterol [Advair Diskus] 500-50 mcg/dose blister with device 1 ea INHALATION BID PRN (Reason: Shortness Of Breath) Patient Comments: INHALE 1 DOSE BY MOUTH TWICE DAILY DIRECTED prednisone 20 mg tablet 20 mg PO DAILY PRN (Reason: Shortness Of Breath Or Wheezing) atorvastatin [Lipitor] 20 mg tablet 40 mg PO QPM Patient Comments: patient states she forgets to take diltiazem HCl [Cartia XT] 120 mg capsule,extended release 24hr 120 mg PO QAM Patient Comments: TAKE 1 CAPSULE BY MOUTH ONCE DAILY levothyroxine 88 mcg tablet 88 mcg PO QAM Patient Comments: TAKE 1 TABLET BY MOUTH ONCE DAILY lisinopril 40 mg tablet 20 mg PO QAM Patient Comments: TAKE 1 TABLET BY MOUTH ONCE DAILY clopidogrel 75 mg tablet 75 mg PO QAM ipratropium-albuterol 0.5 mg-3 mg(2.5 mg base)/3 mL solution for nebulization 3 ml INHALATION BID metoprolol succinate 25 mg tablet extended release 24 hr 25 mg PO DAILY Patient Comments: pt has not started, 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 10 mg Tablet 10 mg PO TID PRN (Reason: Muscle Spasm) albuterol 90 mcg/actuation Aerosol 90 mcg INHALATION Q4-6H PRN (Reason: Shortness Of Breath) torsemide 20 mg tablet 40 mg PO DAILY isosorbide mononitrate 120 mg tablet extended release 24 hr 240 mg PO QAM Patient Comments: TAKE 1 TABLET BY MOUTH ONCE DAILY IN THE MORNING isosorbide mononitrate 120 mg tablet extended release 24 hr 120 mg PO DAILY Qty: 30 0RF atorvastatin 40 mg tablet 40 mg PO DAILY Qty: 30 0RF levothyroxine 50 mcg capsule 50 mcg PO DAILY Qty: 30 0RF Referrals: Catie Storm ARNP [Primary Care Provider] - Stand Alone Forms: Patient Portal/API
--- NOTE | 2024-01-02 11:35 | DI.RAD.S_ITS ---
PROCEDURE: XR CHEST 1V INDICATIONS: chest pain TECHNIQUE: One view of the chest was acquired. COMPARISON: [facility], CR, XR CHEST 1V, 09/24/2023, 17:31. [facility], CR, XR CHEST 1V, 08/28/2023, 11:36. FINDINGS: Surgical changes and devices: CABG changes Lungs and pleura: Mildly prominent interstitium. No dense airspace disease or pleural effusion. Mediastinum: Cardiomediastinal contours are unchanged. Heart size is at the upper limit of normal. Bones and chest wall: Degenerative changes. IMPRESSION: Limited single view radiograph. Mildly prominent interstitium could represent atypical infection versus edema. Consider future imaging surveillance to assess for resolution. Dictated by: Bennett Whatley M.D. on 01/02/2024 at 12:24 Approved by: Bennett Whatley M.D. on 01/02/2024 at 12:25
[2024-01-02 11:48] LABS: Add Manual Diff / Slide Review NO; Basophils Absolute Auto 0 /uL (0-100); Basophils Percent Auto 0.7 % (0-2); Eosinophils Absolute Auto 100 /uL (0-450); Eosinophils Percent Auto 1.5 % (2-4); Hematocrit 36.6 % (36-46); Hemoglobin 12.2 g/dL (12.0-16.0); Lymphocytes Absolute Auto 900 /uL (1100-4500); Lymphocytes Percent Auto 14.9 % (25-40); Mean Corpuscular HGB Conc 33.2 % (30-36); Mean Corpuscular Hemoglobin 27.9 PG (26-34); Mean Corpuscular Volume 83.9 fL (80-100); Monocytes Absolute Auto 500 /uL (0-900); Monocytes Percent Auto 7.4 % (3-14); Neutrophils Absolute Auto 4600 /uL (1500-7000); Neutrophils Percent Auto 75.5 % (50-75); Platelet Count 213 X10^3/uL (150-400); Red Blood Cell Count 4.36 X10^6/uL (4.0-5.2); Red Cell Distribution Width 16.3 % (11.6-14.8); White Blood Cell Count 6.1 X10^3/uL (4.5-11.0)
[2024-01-02 12:05] LABS: Alanine Aminotransferase 15 IU/L (<35); Albumin 4.3 g/dL (3.5-5.0); Albumin Globulin Ratio 1.5 (1.0-2.8); Alkaline Phosphatase 69 U/L (38-126); Aspartate Aminotransferase 71 IU/L (14-36); BUN Creatinine Ratio 16.8 (6-22); Bilirubin Total 0.9 mg/dL (0.2-1.3); Blood Urea Nitrogen 24 mg/dL (7-17); Calcium 10.4 mg/dL (8.4-10.2); Carbon Dioxide 33 mmol/L (22-32); Chloride 101 mmol/L (98-107); Creatine Kinase 55 U/L (30-135); Estimated Glomerular Filt Rate 35 mL/min (>60); Globulin 2.9 g/dL (1.7-4.1); Glucose 138 mg/dL (80-110); HEMOLYSIS < 15 (0-50); Lipase 110 U/L (23-300); Potassium 3.8 mmol/L (3.4-5.1); Sodium 141 mmol/L (137-145); Total Protein 7.2 g/dL (6.3-8.2)
[2024-01-02 12:16] LABS: Troponin I 0.041 ng/mL (0.01-0.034)
--- NOTE | 2024-01-02 12:28 | DI.CT.S_ITS ---
PROCEDURE: CT ABDOMEN PELVIS W CON INDICATIONS: ab pain TECHNIQUE: After the administration of intravenous contrast, axial sections acquired from the lung bases to the pubic symphysis. Coronal and sagittal reformats were performed. For radiation dose reduction, the following was used: automated exposure control, adjustment of mA and/or kV according to patient size. COMPARISON: [facility], CT, CT ABDOMEN PELVIS W CON, 10/02/2022, 13:53. FINDINGS: Image quality: Diagnostic Lower chest: Lower lung fibrosis, scarring, and atelectasis again seen. Partially seen cardiomegaly. Nonspecific wall thickening at the gastroesophageal junction. Suspected coronary calcifications. Liver: Liver appears unremarkable. Gallbladder and biliary system: Gallbladder is absent. 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 No hydronephrosis Vessels and lymph nodes: Abdominal aortic aneurysm again seen, with partial thrombus maximum AP dimension on sagittal view is 6.5 cm, possible slightly increased compared to prior. Heterogeneous density is seen in the partial thrombus. A small saccular component is seen inferior to the main aneurysm sac. Atherosclerotic calcifications are present. No pathologic lymph nodes by size criteria Bowel and peritoneum: No evidence of small bowel obstruction. No pathologic ascites. Colonic diverticula. The appendix is nondilated Body wall: Small fat containing inguinal and umbilical hernias. Pelvis: Bladder is unremarkable. Uterus is absent Bones: Degenerative changes. No acute or suspicious findings. L4 mild height loss again seen. IMPRESSION: No acute small bowel obstruction. There is wall thickening at the gastroesophageal junction, possibly infectious/inflammatory for example from reflux. This could be better evaluated with endoscopy if needed. Partially thrombosed, heterogeneous abdominal aortic aneurysm appears slightly larger than 2022. Consider vascular follow-up if not already performed. Other findings above. Dictated by: Bennett Whatley M.D. on 01/02/2024 at 12:58 Approved by: Bennett Whatley M.D. on 01/02/2024 at 13:05
[2024-01-02 14:04] LABS: Troponin I 0.034 ng/mL (0.01-0.034)
== END 2024-01-02 14:54 | disposition home or self-care (01) ==
PROVIDERS: Emergency Provider Emergency Medicine; PCP Nurse Practitioner Family; Referring Provider Emergency Medicine
DX: R07.89 Other chest pain (principal); R10.9 Unspecified abdominal pain; Z79.899 Other long term (current) drug therapy
CPT/HCPCS: 36415; 71045; 74177; 80053; 82550; 83690; 84484; 85025; 93005; 93010; 99284; 99285; Q9967

== ENCOUNTER 2024-01-18 07:47 | Emergency (ER) | payer MEDICARE, SELFPAY ==
[2023-06-12 16:02] VITALS: BMI 25.8
[2024-01-18] VITALS (43 sets, daily range): BP systolic 133–186; BP diastolic 61–83; PULSE 50–67; RESP 16–26; TEMP 36.8–37.1; O2SAT 94–100; BMI 35.1
--- NOTE | 2024-01-18 07:29 | ED_ITS ---
HPI - General Adult General Chief complaint: Chest Pain Stated complaint: Chest Pressure Time Seen by Provider: 01/18/24 08:16 History of Present Illness HPI narrative: 88-year-old female with history of CAD, status post three-vessel bypass grafting [facility] 2004, seen here for chest discomfort and belching 01/02/2024 and was released home, woke up this morning with left anterior chest heaviness discomfort, also with belching like symptoms that did not necessarily make her chest pain feel better, arrived by EMS with chest pain, given oral aspirin and 2 sublingual nitroglycerin en route, some decreased chest discomfort, still having some residual chest discomfort on arrival. No associated diaphoresis, nausea or vomiting. No headache. No radiation to arm shoulder blade neck legs. Feels similar to her episode earlier this month. She denies taking any antacid medications. No fevers or chills. History of COPD, on same 2 liters/minute oxygen at home, chronic cough unchanged, denies sensation of shortness of breath. Denies leg pain or swelling. Related Data Home Medications Medication Instructions Recorded Confirmed aspirin 81 mg tablet,delayed 81 mg PO QDAY ##0 07/11/17 06/12/23 release multivitamin 1 tab PO DAILY 07/07/18 06/12/23 nitroglycerin 0.4 mg sublingual 0.4 mg sublingual Q5-15M PRN Chest 07/07/18 06/12/23 tablet (Nitrostat) Pain omega 4-qkg-ymb-fish oil 1,000 mg 1,000 mg PO DAILY 07/07/18 06/12/23 (120 mg-180 mg) capsule (Fish Oil) vitamin E 268 mg (400 unit) capsule 400 unit PO DAILY 07/07/18 06/12/23 atorvastatin 20 mg tablet (Lipitor) 40 mg PO QPM 05/04/22 06/12/23 diltiazem HCl 120 mg 120 mg PO QAM 05/04/22 06/12/23 capsule,extended release 24 hr (Cartia XT) levothyroxine 88 mcg tablet 88 mcg PO QAM 05/04/22 06/12/23 lisinopril 40 mg tablet 20 mg PO QAM 05/04/22 06/12/23 albuterol 90 mcg/actuation aerosol 90 mcg inhalation Q4-6H PRN 05/20/22 06/12/23 inhaler Shortness Of Breath clopidogrel 75 mg tablet 75 mg PO QAM 05/20/22 06/12/23 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 10 mg tablet 10 mg PO TID PRN Muscle Spasm 05/20/22 06/12/23 ipratropium 0.5 mg-albuterol 3 mg 3 ml inhalation BID 05/20/22 06/12/23 (2.5 mg base)/3 mL nebulization soln metoprolol succinate 25 mg 25 mg PO DAILY 05/20/22 06/12/23 tablet,extended release 24 hr torsemide 20 mg tablet 40 mg PO DAILY 04/29/23 06/12/23 fluticasone 500 mcg-salmeterol 50 1 ea inhalation BID PRN Shortness 05/16/23 06/12/23 mcg/dose blistr powdr for Of Breath inhalation (Advair Diskus) prednisone 20 mg tablet 20 mg PO DAILY PRN Shortness Of 05/16/23 06/12/23 Breath Or Wheezing isosorbide mononitrate 120 mg 240 mg PO QAM 06/12/23 06/12/23 tablet,extended release 24 hr Previous Rx's Medication Instructions Recorded atorvastatin 40 mg tablet 40 mg PO DAILY #30 tabs 09/24/23 isosorbide mononitrate 120 mg 120 mg PO DAILY #30 tabs 09/24/23 tablet,extended release 24 hr levothyroxine 50 mcg capsule 50 mcg PO DAILY #30 caps 09/24/23 Allergies Allergy/AdvReac Type Severity Reaction Status Date / Time amlodipine Allergy Intermediate Verified 01/18/24 08:06 doxazosin [From Cardura] Allergy Intermediate Rash Verified 01/18/24 08:06 doxycycline Allergy Intermediate Rash Verified 01/18/24 08:06 gemfibrozil Allergy Intermediate Rash Verified 01/18/24 08:06 levofloxacin Allergy Intermediate Rash Verified 01/18/24 08:06 losartan Allergy Intermediate Rash Verified 01/18/24 08:06 montelukast [From Singulair] Allergy Intermediate Difficulty Verified 01/18/24 08:06 Breathing Sulfa (Sulfonamide Allergy Intermediate rash Verified 01/18/24 08:06 Antibiotics) sulfamethoxazole Allergy Intermediate Rash Verified 01/18/24 08:06 [From Bactrim] trimethoprim [From Bactrim] Allergy Intermediate Rash Verified 01/18/24 08:06 carvedilol Allergy Mild Rash Verified 01/18/24 08:06 acarbose AdvReac Intermediate Abdominal Verified 01/18/24 08:06 Pain chlorthalidone AdvReac Intermediate Redness of Verified 01/18/24 08:06 Skin metoprolol AdvReac Intermediate Verified 01/18/24 08:06 nifedipine AdvReac Intermediate Chills Verified 01/18/24 08:06 budesonide [From Symbicort] AdvReac Mild Anxiety Verified 01/18/24 08:06 choline fenofibrate AdvReac Mild Gastrointestinal Verified 01/18/24 08:06 [From Trilipix] Upset formoterol [From Symbicort] AdvReac Mild Anxiety Verified 01/18/24 08:06 Patient History Medical History Bilateral carpal tunnel syndrome Aneurysm of infrarenal abdominal aorta Hyperlipidemia 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 HEAD: Atraumatic. Normocephalic. EYES: Pupils equal round and reactive. Extraocular motions intact. No scleral icterus. No injection or drainage. ENT: Nose without bleeding, purulent drainage. Throat without erythema, tonsillar hypertrophy or exudate. Airway patent. NECK: Trachea midline. Non tender CARDIOVASCULAR: Regular rate and rhythm without murmurs, gallops, or rubs. Well-healed sternal scar, no tenderness on palpation. RESPIRATORY: Clear to auscultation. Breath sounds equal bilaterally. No wheezes, rales, or rhonchi. GASTROINTESTINAL: Abdomen soft, non-tender, nondistended. EXTREMITIES: No edema or joint tenderness. No leg swelling or tenderness calves. BACK: Nontender without deformity or crepitance. No flank tenderness. NEURO: AOx3. SKIN: No rash or erythema of visible areas Initial Vital Signs Initial Vital Signs: Vital Signs Temperature 98.2 F 01/18/24 08:06 Pulse Rate 60 01/18/24 08:06 Respiratory Rate 17 01/18/24 08:06 Blood Pressure 180/80 H 01/18/24 08:06 Pulse Oximetry 94 01/18/24 08:06 Oxygen Delivery Method Nasal Cannula 01/18/24 08:06 Oxygen Flow Rate 2 01/18/24 08:06 Course Orders Ordered: Discontinued Medications Aspirin (Aspirin 81 Mg Chew Tab) 324 mg PO NOW ONE Stop: 01/18/24 07:31 Last Admin: 01/18/24 08:12 Dose: Not Given Documented By: RB Al Hydrox/Mg Hydrox/Simethicone 20 ml/ Lidocaine HCl 15 ml 0 ml PO NOW ONE Stop: 01/18/24 08:34 Last Admin: 01/18/24 09:01 Dose: 35 ml Documented By: RB Famotidine (Famotidine 20 Mg/2 Ml Vial) 20 mg IV NOW [facility] Last Admin: 01/18/24 09:01 Dose: 20 mg Documented By: RB Sodium Chloride (Normal Saline 0.9%) 1,000 mls @ 150 mls/hr IV CONT [facility] Last Infusion: 01/18/24 16:27 Dose: 150 mls/hr Documented By: Admin: 01/18/24 16:02 Dose: 150 mls/hr Documented By: Infusion: 01/18/24 15:43 Dose: Infused Documented By: Admin: 01/18/24 09:02 Dose: 150 mls/hr Documented By: RB Morphine Sulfate (Morphine 4 Mg/Ml Inj) 4 mg IV NOW ONE Stop: 01/18/24 08:45 Last Admin: 01/18/24 09:02 Dose: 4 mg Documented By: RB Nitroglycerin (Nitroglycerin 0.4 Mg Sl Tab) 0.4 mg SL NOW ONE Stop: 01/18/24 08:06 Last Admin: 01/18/24 08:12 Dose: 0.4 mg Documented By: RB Ondansetron HCl (Ondansetron 4 Mg/2 Ml Inj) 4 mg IV NOW ONE Stop: 01/18/24 08:46 Last Admin: 01/18/24 09:01 Dose: 4 mg Documented By: RB Vital Signs Vital signs: Vital Signs - 8 hr 01/18/24 15:00 01/18/24 15:30 01/18/24 15:41 Temperature Pulse Rate 51 L 52 L Respiratory Rate 23 19 Blood Pressure 160/69 H Pulse Oximetry 99 99 Oxygen Delivery Method Nasal Cannula Oxygen Flow Rate 2 01/18/24 15:41 01/18/24 16:01 01/18/24 16:10 Temperature Pulse Rate 51 L Respiratory Rate 17 Blood Pressure 186/79 H 173/77 H Pulse Oximetry 98 Oxygen Delivery Method Nasal Cannula Nasal Cannula Oxygen Flow Rate 2 2 01/18/24 16:20 Temperature 98.8 F Pulse Rate Respiratory Rate 24 Blood Pressure Pulse Oximetry Oxygen Delivery Method Oxygen Flow Rate Medical Decision Making Lab Data Lab results reviewed: Yes I reviewed the patient's lab results. 01/18/24 08:05 01/18/24 08:05 Labs: Lab Results 01/18/24 01/18/24 Range/Units 08:05 11:10 WBC 7.0 (4.5-11.0) X10^3/uL RBC 4.57 (4.0-5.2) X10^6/uL Hgb 12.7 (12.0-16.0) g/dL Hct 38.7 (36-46) % MCV 84.6 (80-100) fL MCH 27.8 (26-34) PG MCHC 32.9 (30-36) % RDW 15.5 H (11.6-14.8) % Plt Count 209 (150-400) X10^3/uL Neut % (Auto) 65.3 (50-75) % Lymph % (Auto) 17.9 L (25-40) % [place] % (Auto) 8.3 (3-14) % Eos % (Auto) 8.2 H (2-4) % Baso % (Auto) 0.3 (0-2) % Neut # (Auto) 4600 (4038-8029) /uL Lymph # (Auto) 1200 (3595-0387) /uL [place] # (Auto) 600 (0-900) /uL Eos # (Auto) 600 H (0-450) /uL Baso # (Auto) 0 (0-100) /uL Sodium 141 (137-145) mmol/L Potassium 4.4 (3.4-5.1) mmol/L Chloride 99 (98-107) mmol/L Carbon Dioxide 37 H (22-32) mmol/L BUN 22 H (7-17) mg/dL Creatinine 0.98 (0.52-1.04) mg/dL Estimated GFR 56 L (>60) mL/min BUN/Creatinine Ratio 22.4 H (6-22) Glucose 127 H (80-110) mg/dL Calcium 9.8 (8.4-10.2) mg/dL Total Bilirubin 1.0 (0.2-1.3) mg/dL AST 34 (14-36) IU/L ALT 14 (<35) IU/L Alkaline Phosphatase 62 (38-126) U/L Total Creatine Kinase 53 (30-135) U/L Troponin I 0.104 H 0.087 H (0.01-0.034) ng/mL Total Protein 7.0 (6.3-8.2) g/dL Albumin 4.3 (3.5-5.0) g/dL Globulin 2.7 (1.7-4.1) g/dL Albumin/Globulin Ratio 1.6 (1.0-2.8) Lipase 64 (23-300) U/L Point of Care Testing Glucose POC 102 Urine Dip Bedside Urine Glucose Negative Bedside Urine Bilirubin - Negative Bedside Urine Ketone - Negative Urine Specific [place] 1.015 Bedside Urine Occult Blood - Negative Bedside Urine pH 6.5 Bedside Urine Protein - Negative Bedside Urine Urobilinogen - Negative Bedside Urine Nitrite - Negative Bedside Urine Leukocytes - Negative Esterase Point of care testing: Point of Care Testing Glucose POC 102 Urine Dip Bedside Urine Glucose Negative Bedside Urine Bilirubin - Negative Bedside Urine Ketone - Negative Urine Specific [place] 1.015 Bedside Urine Occult Blood - Negative Bedside Urine pH 6.5 Bedside Urine Protein - Negative Bedside Urine Urobilinogen - Negative Bedside Urine Nitrite - Negative Bedside Urine Leukocytes - Negative Esterase ECG Data Attestation: I personally reviewed and interpreted this ECG as follows: Prior ECG tracings: available for review Interpretation: Normal sinus rhythm with rate of 65, right bundle branch block pattern, LVH, no significant change morphology from comparison recent study 01/02/2024. [place] interval increased 222ms MDM Narrative Medical decision making narrative: 88-year-old female with history of chronic home oxygen, COPD, CAD status post three-vessel CABG 2004, recent evaluation for chest pain here 01/02/2024 with serial troponin negative and was sent home, now with recurrence of chest discomfort this morning, again with some belching associated symptoms, screening EKG shows right bundle branch block pattern that looks unchanged from prior study 01/02/2024. Labs pending including troponin. Troponin 0.104, elevated compared to recent values 0.041 and 0.034 on her recent evaluation 01/02/2024 here. Third sublingual nitroglycerin given, some residual symptoms, IV morphine/Zofran. IV Pepcid. Chest x-ray shows sternal wires, no obvious infiltrates, no pleural effusion, no cephalization of vesicles, ED wet read, await Radiology over-read. Additional Information: Repeat troponin 0.08, slight decreased from prior but elevated from 2 weeks ago. We will discuss case with cardiology for disposition planning. Currently pain- free. Will discuss with on-call cardiology 1220, discussed with Dr Bassett, offers medical. Case discussed with Dr. Bassett, who was able to review medical records, was able to identify patient had cardiac catheterization April 2022, showing aortic stenosis, 80% occlusion of the left main lesion, complete occlusion of the left circumflex, RCA calcification, venous graft to the circumflex showed 40-50% proximal stenosis, large abdominal AAA 5-cm also noted. Dr. Bassett was able to identify cardiology note with Dr. Mcgee from April 2022 cardiac cath, not felt to be internventional candidate, too risky for LAD revascularization, or AAA treatment, medical management. Dr. Bassett says this patient is quite complex for [facility], CT scanner down now here, can not evaluate her known AAA. She suggest cardiac echo, ultrasound aorta. However she feels patient would benefit from higher level of care, at their facility [facility], or at [facility]. We will address these options with the patient. Patient reluctant to be transferred, enquiring about admission here, we will discuss with hospitalist. Discussed with hospitalist Jeff, advises transfer to [facility]. Patient agreeable to being transferred to [place], we will query [facility] No beds [facility], we will expand search to include [facility] where she had her original CABG procedure 1429, [facility] full, intake [facility] system 1515, case discussed with hospitalist at [facility], accepts patient for transfer Critical Care Time Critical Care Time Critical Care Time: Yes Total Critical Care Time: 45 Attestation: The high probability of a clinically significant, sudden or life threatening deterioration of the [cardiopulmcardiopulmonary ] system(s) required my full and direct attention, intervention and personal management. The aggregate critical care time was [45] minutes. This time is in addition to time spent performing reported procedures but includes the following: [x] Data Review and interpretation [x] Patient assessment and monitoring of vital signs [x] Documentation [x] Medication orders and management Discharge Plan Departure Patient Disposition: [facility] Clinical Impression: Chest pain, History of coronary artery bypass graft x 3 Prescriptions: No Action aspirin 81 MG tablet,delayed release (DR/EC) 81 mg PO QDAY Qty: 0 Rx Instructions: morning omega 2-mny-qab-fish oil [Fish Oil] 1,000 mg (120 mg-180 mg) Capsule 1,000 mg PO DAILY nitroglycerin [Nitrostat] 0.4 mg Tablet, Sublingual 0.4 mg SUBLINGUAL Q5-15M PRN (Reason: Chest Pain) Patient Comments: Patient has not ever taken nitro at home, education provided to her today. She was administered 2x nitro by EMS en route, and 1x nitro while in the ER. \ vitamin E 400 unit Capsule 400 unit PO DAILY multivitamin Tablet,Chewable 1 tab PO DAILY fluticasone propion-salmeterol [Advair Diskus] 500-50 mcg/dose blister with device 1 ea INHALATION BID PRN (Reason: Shortness Of Breath) Patient Comments: INHALE 1 DOSE BY MOUTH TWICE DAILY DIRECTED prednisone 20 mg tablet 20 mg PO DAILY PRN (Reason: Shortness Of Breath Or Wheezing) atorvastatin [Lipitor] 20 mg tablet 40 mg PO QPM Patient Comments: patient states she forgets to take diltiazem HCl [Cartia XT] 120 mg capsule,extended release 24hr 120 mg PO QAM Patient Comments: TAKE 1 CAPSULE BY MOUTH ONCE DAILY levothyroxine 88 mcg tablet 88 mcg PO QAM Patient Comments: TAKE 1 TABLET BY MOUTH ONCE DAILY lisinopril 40 mg tablet 20 mg PO QAM Patient Comments: TAKE 1 TABLET BY MOUTH ONCE DAILY clopidogrel 75 mg tablet 75 mg PO QAM ipratropium-albuterol 0.5 mg-3 mg(2.5 mg base)/3 mL solution for nebulization 3 ml INHALATION BID metoprolol succinate 25 mg tablet extended release 24 hr 25 mg PO DAILY Patient Comments: pt has not started, it is at the pharmacy for her to pick up attendant 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 10 mg Tablet 10 mg PO TID PRN (Reason: Muscle Spasm) albuterol 90 mcg/actuation Aerosol 90 mcg INHALATION Q4-6H PRN (Reason: Shortness Of Breath) torsemide 20 mg tablet 40 mg PO DAILY isosorbide mononitrate 120 mg tablet extended release 24 hr 240 mg PO QAM Patient Comments: TAKE 1 TABLET BY MOUTH ONCE DAILY IN THE MORNING isosorbide mononitrate 120 mg tablet extended release 24 hr 120 mg PO DAILY Qty: 30 0RF atorvastatin 40 mg tablet 40 mg PO DAILY Qty: 30 0RF levothyroxine 50 mcg capsule 50 mcg PO DAILY Qty: 30 0RF Referrals: Catie Storm ARNP [Primary Care Provider] -
--- NOTE | 2024-01-18 07:30 | DI.RAD.S_ITS ---
PROCEDURE: XR CHEST 1V INDICATIONS: chest pain TECHNIQUE: One view of the chest was acquired. COMPARISON: [facility], CT, CT ABDOMEN PELVIS W CON, 01/02/2024, 12:49. [facility], CR, XR CHEST 1V, 01/02/2024, 11:39. [facility], CR, XR CHEST 1V, 09/24/2023, 17:31. FINDINGS: Surgical changes and devices: Post median sternotomy and CABG. Coronary stents. Lungs and pleura: No consolidation. Chronic interstitial thickening. No significant pleural effusions. No pneumothorax. Mediastinum: Mediastinal contours appear unchanged. Aortic arch calcifications. Heart size is unchanged. Bones and chest wall: No suspicious bony lesions. Overlying soft tissues appear unremarkable. IMPRESSION: No acute cardiopulmonary abnormality is seen. Chronic interstitial thickening. This could be due to interstitial lung disease. Dictated by: Marito Buchanan M.D. on 01/18/2024 at 8:35 Approved by: Marito Buchanan M.D. on 01/18/2024 at 8:38
[2024-01-18 08:11] LABS: Add Manual Diff / Slide Review NO; Basophils Absolute Auto 0 /uL (0-100); Basophils Percent Auto 0.3 % (0-2); Eosinophils Absolute Auto 600 /uL (0-450); Eosinophils Percent Auto 8.2 % (2-4); Hematocrit 38.7 % (36-46); Hemoglobin 12.7 g/dL (12.0-16.0); Lymphocytes Absolute Auto 1200 /uL (1100-4500); Lymphocytes Percent Auto 17.9 % (25-40); Mean Corpuscular HGB Conc 32.9 % (30-36); Mean Corpuscular Hemoglobin 27.8 PG (26-34); Mean Corpuscular Volume 84.6 fL (80-100); Monocytes Absolute Auto 600 /uL (0-900); Monocytes Percent Auto 8.3 % (3-14); Neutrophils Absolute Auto 4600 /uL (1500-7000); Neutrophils Percent Auto 65.3 % (50-75); Platelet Count 209 X10^3/uL (150-400); Red Blood Cell Count 4.57 X10^6/uL (4.0-5.2); Red Cell Distribution Width 15.5 % (11.6-14.8)
[2024-01-18] MEDS: NITROGLYCERIN 0.4 MG SL TAB SL (08:12)
[2024-01-18 08:21] LABS: Alanine Aminotransferase 14 IU/L (<35); Albumin 4.3 g/dL (3.5-5.0); Albumin Globulin Ratio 1.6 (1.0-2.8); Alkaline Phosphatase 62 U/L (38-126); Aspartate Aminotransferase 34 IU/L (14-36); BUN Creatinine Ratio 22.4 (6-22); Blood Urea Nitrogen 22 mg/dL (7-17); Calcium 9.8 mg/dL (8.4-10.2); Carbon Dioxide 37 mmol/L (22-32); Chloride 99 mmol/L (98-107); Creatine Kinase 53 U/L (30-135); Estimated Glomerular Filt Rate 56 mL/min (>60); Globulin 2.7 g/dL (1.7-4.1); Glucose 127 mg/dL (80-110); Lipase 64 U/L (23-300); Potassium 4.4 mmol/L (3.4-5.1); Sodium 141 mmol/L (137-145)
[2024-01-18 08:23] LABS: HEMOLYSIS 56 (0-50)
[2024-01-18 08:32] LABS: Troponin I 0.104 ng/mL (0.01-0.034)
[2024-01-18] MEDS: ONDANSETRON 4 MG/2 ML INJ IV (09:01)
[2024-01-18] MEDS: MAG HYDROX/ALUMINUM/SIMETH SUS 20 ML, LIDOCAINE VISCOUS 2% 15 ML PO (09:01)
[2024-01-18] MEDS: FAMOTIDINE 20 MG/2 ML VIAL IV (09:01)
[2024-01-18] MEDS: SODIUM CHLORIDE 0.9% 1,000 ML 150 ML IV ×2 (09:02→16:02)
[2024-01-18] MEDS: MORPHINE 4 MG/ML INJ IV (09:02)
[2024-01-18 11:48] LABS: Troponin I 0.087 ng/mL (0.01-0.034)
--- NOTE | 2024-01-18 13:16 | PC.NURSE ---
Face sheet faxed and images pushed @[phone]. Called [facility] for a possible bed. Camilo at the transfer center says [facility] currently does not have tele/ cardiac beds available but to check back in 4 hours.
--- NOTE | 2024-01-18 15:57 | PC.NURSE ---
This RN gave report to CRAIG Amanda at [facility]. This RN gave that RN the return phone number for any additional questions they may have.
== END 2024-01-18 16:27 | disposition short-term general hospital (02) ==
PROVIDERS: Emergency Provider Emergency Medicine; PCP Nurse Practitioner Family
DX: R07.9 Chest pain, unspecified (principal); Z95.5 Presence of coronary angioplasty implant and graft
CPT/HCPCS: 36415; 71045; 80053; 81003; 82550; 82962; 83690; 84484; 85025; 93005; 96374; 96375; 99285; 99291; J2270; J2405

== ENCOUNTER 2025-02-10 06:41 | Emergency (ER) | payer MEDICARE, SELFPAY ==
[2023-06-12 16:02] VITALS: BMI 25.8
[2025-02-10] VITALS (37 sets, daily range): BP systolic 133–234; BP diastolic 68–138; PULSE 69–104; RESP 18–37; TEMP 36.2–36.3; O2SAT 93–99; BMI 23.8
--- NOTE | 2025-02-10 06:36 | EKG_ITS ---
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
--- NOTE | 2025-02-10 06:43 | ED.GENADULT ---
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 She does not describe this is significant pain but does rated as a 5/10. Concerning enough that she called 911. States that yesterday she was in her baseline state of health has not been more fatigued than her baseline has not felt that she has needed more oxygen, no fevers, chills, abdominal pain nausea or vomiting. Related Data Home Medications ?Medication ?Instructions ?Recorded ?Confirmed aspirin 81 mg tablet,delayed 81 mg PO QDAY ##0 07/11/17 06/12/23 release multivitamin 1 tab PO DAILY 07/07/18 06/12/23 nitroglycerin 0.4 mg sublingual 0.4 mg sublingual Q5-15M PRN Chest 07/07/18 06/12/23 tablet (Nitrostat) Pain omega 8-gyr-prt-fish oil 1,000 mg 1,000 mg PO DAILY 07/07/18 06/12/23 (120 mg-180 mg) capsule (Fish Oil) vitamin E 268 mg (400 unit) capsule 400 unit PO DAILY 07/07/18 06/12/23 atorvastatin 20 mg tablet (Lipitor) 40 mg PO QPM 05/04/22 06/12/23 diltiazem HCl 120 mg 120 mg PO QAM 05/04/22 06/12/23 capsule,extended release 24 hr (Cartia XT) levothyroxine 88 mcg tablet 88 mcg PO QAM 05/04/22 06/12/23 lisinopril 40 mg tablet 20 mg PO QAM 05/04/22 06/12/23 albuterol 90 mcg/actuation aerosol 90 mcg inhalation Q4-6H PRN 05/20/22 06/12/23 inhaler Shortness Of Breath clopidogrel 75 mg tablet 75 mg PO QAM 05/20/22 06/12/23 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 10 mg tablet 10 mg PO TID PRN Muscle Spasm 05/20/22 06/12/23 ipratropium 0.5 mg-albuterol 3 mg 3 ml inhalation BID 05/20/22 06/12/23 (2.5 mg base)/3 mL nebulization soln metoprolol succinate 25 mg 25 mg PO DAILY 05/20/22 06/12/23 tablet,extended release 24 hr torsemide 20 mg tablet 40 mg PO DAILY 04/29/23 06/12/23 fluticasone 500 mcg-salmeterol 50 1 ea inhalation BID PRN Shortness 05/16/23 06/12/23 mcg/dose blistr powdr for Of Breath inhalation (Advair Diskus) prednisone 20 mg tablet 20 mg PO DAILY PRN Shortness Of 05/16/23 06/12/23 Breath Or Wheezing isosorbide mononitrate 120 mg 240 mg PO QAM 06/12/23 06/12/23 tablet,extended release 24 hr Previous Rx's ?Medication ?Instructions ?Recorded atorvastatin 40 mg tablet 40 mg PO DAILY #30 tabs 09/24/23 isosorbide mononitrate 120 mg 120 mg PO DAILY #30 tabs 09/24/23 tablet,extended release 24 hr levothyroxine 50 mcg capsule 50 mcg PO DAILY #30 caps 09/24/23 furosemide 40 mg tablet (Lasix) 40 mg PO DAILY #2 tabs 02/10/25 Allergies Allergy/AdvReac Type Severity Reaction Status Date / Time amlodipine Allergy Intermediate Verified 01/18/24 08:06 doxazosin (From Cardura) Allergy Intermediate Rash Verified 01/18/24 08:06 doxycycline Allergy Intermediate Rash Verified 01/18/24 08:06 gemfibrozil Allergy Intermediate Rash Verified 01/18/24 08:06 levofloxacin Allergy Intermediate Rash Verified 01/18/24 08:06 losartan Allergy Intermediate Rash Verified 01/18/24 08:06 montelukast (From Singulair) Allergy Intermediate Difficulty Verified 01/18/24 08:06 Breathing Sulfa (Sulfonamide Allergy Intermediate rash Verified 01/18/24 08:06 Antibiotics) sulfamethoxazole (From Allergy Intermediate Rash Verified 01/18/24 08:06 Bactrim) trimethoprim (From Bactrim) Allergy Intermediate Rash Verified 01/18/24 08:06 carvedilol Allergy Mild Rash Verified 01/18/24 08:06 acarbose AdvReac Intermediate Abdominal Verified 01/18/24 08:06 Pain chlorthalidone AdvReac Intermediate Redness of Verified 01/18/24 08:06 Skin metoprolol AdvReac Intermediate Verified 01/18/24 08:06 nifedipine AdvReac Intermediate Chills Verified 01/18/24 08:06 budesonide (From Symbicort) AdvReac Mild Anxiety Verified 01/18/24 08:06 choline fenofibrate (From AdvReac Mild Gastrointestinal Verified 01/18/24 08:06 Trilipix) Upset formoterol (From Symbicort) AdvReac Mild Anxiety Verified 01/18/24 08:06 Review of Systems <Erinn Nichols MD - Last Filed: 02/15/25 08:15> Review of Systems Narrative: Pertinent positive and negative findings as per HPI Patient History <Erinn Nichols MD - Last Filed: 02/15/25 08:15> Medical History Bilateral carpal tunnel syndrome Aneurysm of infrarenal abdominal aorta Hyperlipidemia 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 CAD (coronary artery disease) HTN (hypertension) Elevated TSH Unstable angina Surgical History Status post cholecystectomy H/O hysterectomy with oophorectomy H/O three vessel coronary artery bypass Hx of heart artery stent Family History Father Lung cancer Mother COPD (chronic obstructive pulmonary disease) Social History household members: children alcohol intake: never tobacco type: cigarettes alcohol intake frequency: 0-2 drinks per day Exam <Erinn Nichols MD - Last Filed: 02/15/25 08:15> Initial Vital Signs Initial Vital Signs: Vital Signs Temperature 97.4 F L 02/10/25 06:32 Pulse Rate 103 H 02/10/25 06:32 Respiratory Rate 28 H 02/10/25 06:32 Blood Pressure 133/68 02/10/25 06:32 Pulse Oximetry 94 02/10/25 06:32 Oxygen Delivery Method Room Air 02/10/25 06:32 General: Frail but, in no acute distress. Able to give a complete and coherent history. HEENT: Moist mucous membranes, normal sclera with reactive pupils, Neck: No JVD, supple Respiratory: Lungs are clear to auscultation, no wheezing no rales no rhonchi. Full and symmetrical air movement Cardiac: Frequent irregular beats, 3/6 systolic murmur Abdomen: Soft, nontender, no rebound or guarding, no flank pain Skin: Warm and dry no diaphoresis Neurologic: Grossly neurologically intact with no obvious asymmetries or abnormalities Extremities: No trauma, no lower extremity edema Psych: Cooperative, appropriate insight and affect <Torito Swenson DO - Last Filed: 02/10/25 10:45> Initial Vital Signs Initial Vital Signs: Vital Signs Temperature 97.4 F L 02/10/25 06:32 Pulse Rate 103 H 02/10/25 06:32 Respiratory Rate 28 H 02/10/25 06:32 Blood Pressure 133/68 02/10/25 06:32 Pulse Oximetry 94 02/10/25 06:32 Oxygen Delivery Method Room Air 02/10/25 06:32 Scores <Erinn Nichols MD - Last Filed: 02/15/25 08:15> HEART Score Heart Score Total: 6 <Torito Swenson DO - Last Filed: 02/10/25 10:45> HEART Score Heart Score history: Moderately Suspicious Heart Score EKG: Non-Specific repolarization disturbance Heart Score Age: > or = 65 years old Heart Score risk factors: > 3 risk factors or hx of atherosclerotic disease Heart Score troponin: < or = to normal limit Heart Score Total: 6 Course <Erinn Nichols MD - Last Filed: 02/15/25 08:15> Orders Ordered: Discontinued Medications Aspirin (Aspirin 81 Mg Chew Tab) 324 mg PO NOW ONE Stop: 02/10/25 06:47 Last Admin: 02/10/25 06:55 Dose: Not Given Documented By: ROSALVA Furosemide (Furosemide 40 Mg/4 Ml Vial) 40 mg IV NOW ONE Stop: 02/10/25 10:38 Last Admin: 02/10/25 10:51 Dose: 40 mg Documented By: SHAKA Sodium Chloride (Normal Saline 0.9%) 1,000 mls @ 150 mls/hr IV CONT ROLANDA Last Infusion: 02/10/25 10:51 Dose: 0 mls/hr Documented By: Admin: 02/10/25 06:57 Dose: 150 mls/hr Documented By: SHAKA(2) Nitroglycerin (Nitroglycerin 0.4 Mg Sl Tab) 0.4 mg SL [id number] PRN PRN Reason: chest pain Last Admin: 02/10/25 06:57 Dose: 0.4 mg Documented By: SHAKA(2) Nitroglycerin (Nitroglycerin 0.4 Mg Sl Tab) 0.4 mg SL NOW ONE Stop: 02/10/25 09:35 Last Admin: 02/10/25 09:51 Dose: 0.4 mg Documented By: SHAKA Vital Signs Vital signs: Vital Signs - 8 hr 02/10/25 06:32 02/10/25 06:49 02/10/25 06:57 Temperature 97.4 F L Pulse Rate 103 H 81 80 Respiratory Rate 28 H 26 H Blood Pressure 133/68 133/68 Pulse Oximetry 94 98 Oxygen Delivery Method Room Air 02/10/25 07:00 02/10/25 07:00 02/10/25 07:05 Temperature Pulse Rate 80 Respiratory Rate 27 H Blood Pressure 201/103 H 200/103 H Pulse Oximetry 98 Oxygen Delivery Method 02/10/25 07:05 02/10/25 07:09 02/10/25 07:09 Temperature Pulse Rate 74 82 Respiratory Rate 37 H 37 H Blood Pressure 193/96 H Pulse Oximetry 96 96 Oxygen Delivery Method 02/10/25 07:11 02/10/25 07:11 02/10/25 09:51 Temperature Pulse Rate 77 74 Respiratory Rate 30 H Blood Pressure 189/94 H 189/103 H Pulse Oximetry 97 Oxygen Delivery Method <Torito Swenson, DO - Last Filed: 02/10/25 10:45> Orders Ordered: Discontinued Medications Aspirin (Aspirin 81 Mg Chew Tab) 324 mg PO NOW ONE Stop: 02/10/25 06:47 Last Admin: 02/10/25 06:55 Dose: Not Given Documented By: ROSALVA Furosemide (Furosemide 40 Mg/4 Ml Vial) 40 mg IV NOW ONE Stop: 02/10/25 10:38 Last Admin: 02/10/25 10:51 Dose: 40 mg Documented By: SHAKA Sodium Chloride (Normal Saline 0.9%) 1,000 mls @ 150 mls/hr IV CONT ROLANDA Last Infusion: 02/10/25 10:51 Dose: 0 mls/hr Documented By: Admin: 02/10/25 06:57 Dose: 150 mls/hr Documented By: SHAKA(2) Nitroglycerin (Nitroglycerin 0.4 Mg Sl Tab) 0.4 mg SL [id number] PRN PRN Reason: chest pain Last Admin: 02/10/25 06:57 Dose: 0.4 mg Documented By: SHAKA(2) Nitroglycerin (Nitroglycerin 0.4 Mg Sl Tab) 0.4 mg SL NOW ONE Stop: 02/10/25 09:35 Last Admin: 02/10/25 09:51 Dose: 0.4 mg Documented By: SHAKA Vital Signs Vital signs: Vital Signs - 8 hr 02/10/25 06:32 02/10/25 06:49 02/10/25 06:57 Temperature 97.4 F L Pulse Rate 103 H 81 80 Respiratory Rate 28 H 26 H Blood Pressure 133/68 133/68 Pulse Oximetry 94 98 Oxygen Delivery Method Room Air 02/10/25 07:00 02/10/25 07:00 02/10/25 07:05 Temperature Pulse Rate 80 Respiratory Rate 27 H Blood Pressure 201/103 H 200/103 H Pulse Oximetry 98 Oxygen Delivery Method 02/10/25 07:05 02/10/25 07:09 02/10/25 07:09 Temperature Pulse Rate 74 82 Respiratory Rate 37 H 37 H Blood Pressure 193/96 H Pulse Oximetry 96 96 Oxygen Delivery Method 02/10/25 07:11 02/10/25 07:11 02/10/25 09:51 Temperature Pulse Rate 77 74 Respiratory Rate 30 H Blood Pressure 189/94 H 189/103 H Pulse Oximetry 97 Oxygen Delivery Method Medical Decision Making <Erinn Nichols MD - Last Filed: 02/15/25 08:15> Lab Data 02/10/25 06:44 02/10/25 07:55 Labs: Lab Results 02/10/25 02/10/25 02/10/25 Range/Units 06:44 07:55 09:58 WBC 5.2 (4.5-11.0) X10^3/uL RBC 4.59 (4.0-5.2) X10^6/uL Hgb 12.4 (12.0-16.0) g/dL Hct 37.6 (36-46) % MCV 82.0 (80-100) fL MCH 27.1 (26-34) PG MCHC 33.1 (30-36) % RDW 16.8 H (11.6-14.8) % Plt Count 226 (150-400) X10^3/uL Neut % (Auto) 68.2 (50-75) % Lymph % (Auto) 17.3 L (25-40) % Union % (Auto) 8.0 (3-14) % Eos % (Auto) 5.5 H (2-4) % Baso % (Auto) 1.0 (0-2) % Neut # (Auto) 3500 (4496-0414) /uL Lymph # (Auto) 900 L (4787-0013) /uL Union # (Auto) 400 (0-900) /uL Eos # (Auto) 300 (0-450) /uL Baso # (Auto) 100 (0-100) /uL PT 12.8 H (9.4-12.5) SECONDS INR 1.1 (0.9-1.3) APTT 37 H (25.1-36.5) SECONDS Sodium 139 (137-145) mmol/L Potassium 3.8 (3.4-5.1) mmol/L Chloride 106 (98-107) mmol/L Carbon Dioxide 28 (22-32) mmol/L BUN 8 (7-17) mg/dL Creatinine 0.79 (0.52-1.04) mg/dL Estimated GFR > 60 (>60) mL/min BUN/Creatinine Ratio 10.1 (6-22) Glucose 116 H (70-99) mg/dL Calcium 9.6 (8.4-10.2) mg/dL Magnesium 1.8 (1.6-2.3) mg/dL Total Bilirubin 1.5 H (0.2-1.3) mg/dL AST 28 (14-36) IU/L ALT 13 (<35) IU/L Alkaline Phosphatase 67 (38-126) U/L Total Creatine Kinase 72 (30-135) U/L Troponin I 0.027 0.028 (0.01-0.034) ng/mL NT-Pro-B Natriuret Pep 16992 H (<450) pg/mL Total Protein 6.2 L (6.3-8.2) g/dL Albumin 3.6 (3.5-5.0) g/dL Globulin 2.6 (1.7-4.1) g/dL Albumin/Globulin Ratio 1.4 (1.0-2.8) Lipase 23 (23-300) U/L MDM Narrative Medical decision making narrative: CC: Chest heaviness Complicating co-morbidities: Prior three-vessel CABG, COPD oxygen-dependent, history of heart failure, AAA Because of her significant previous disease prior CABG low ejection fraction patient has been told by Cardiology that she likely is not going to be a candidate for any further interventions such as PCI or repeat CABG. Data collected from: patient Medical records reviewed: Patient was seen here in 2 times December of 2023 with chest pain, Code status: Patient would not want to be intubated and states that she is not afraid of dying but if it does not need to be today that is okay. I clarified that this would mean CPR and medications were acceptable but would avoid intubation. Differential considered: Unstable angina, NSTEMI, COPD exacerbation, musculoskeletal pain Exam documented above, pertinent findings include: Patient is quite pleasant describing 5/10 pain without significant pain behaviors diaphoresis or worsening tachypnea. Lab Test results independently reviewed as above. Pertinent findings: Independently reviewed EKG: EKG shows sinus rhythm with frequent PVCs and occasional couplets, right bundle branch block, no obvious ischemia similar to prior EKGs Imaging studies independently reviewed: Consultations: Treatments: Re-evaluations: Discussion: <Torito Swenson, DO - Last Filed: 02/10/25 10:45> Lab Data Labs: Lab Results 02/10/25 02/10/25 02/10/25 Range/Units 06:44 07:55 09:58 WBC 5.2 (4.5-11.0) X10^3/uL RBC 4.59 (4.0-5.2) X10^6/uL Hgb 12.4 (12.0-16.0) g/dL Hct 37.6 (36-46) % MCV 82.0 (80-100) fL MCH 27.1 (26-34) PG MCHC 33.1 (30-36) % RDW 16.8 H (11.6-14.8) % Plt Count 226 (150-400) X10^3/uL Neut % (Auto) 68.2 (50-75) % Lymph % (Auto) 17.3 L (25-40) % Union % (Auto) 8.0 (3-14) % Eos % (Auto) 5.5 H (2-4) % Baso % (Auto) 1.0 (0-2) % Neut # (Auto) 3500 (3405-7827) /uL Lymph # (Auto) 900 L (6025-6378) /uL Union # (Auto) 400 (0-900) /uL Eos # (Auto) 300 (0-450) /uL Baso # (Auto) 100 (0-100) /uL PT 12.8 H (9.4-12.5) SECONDS INR 1.1 (0.9-1.3) APTT 37 H (25.1-36.5) SECONDS Sodium 139 (137-145) mmol/L Potassium 3.8 (3.4-5.1) mmol/L Chloride 106 (98-107) mmol/L Carbon Dioxide 28 (22-32) mmol/L BUN 8 (7-17) mg/dL Creatinine 0.79 (0.52-1.04) mg/dL Estimated GFR > 60 (>60) mL/min BUN/Creatinine Ratio 10.1 (6-22) Glucose 116 H (70-99) mg/dL Calcium 9.6 (8.4-10.2) mg/dL Magnesium 1.8 (1.6-2.3) mg/dL Total Bilirubin 1.5 H (0.2-1.3) mg/dL AST 28 (14-36) IU/L ALT 13 (<35) IU/L Alkaline Phosphatase 67 (38-126) U/L Total Creatine Kinase 72 (30-135) U/L Troponin I 0.027 0.028 (0.01-0.034) ng/mL NT-Pro-B Natriuret Pep 87521 H (<450) pg/mL Total Protein 6.2 L (6.3-8.2) g/dL Albumin 3.6 (3.5-5.0) g/dL Globulin 2.6 (1.7-4.1) g/dL Albumin/Globulin Ratio 1.4 (1.0-2.8) Lipase 23 (23-300) U/L Imaging Data Chest x-ray: Radiologist's Impression: [address] [address] XRay Report Signed Patient: Lindsay Aguilar MR#: [id number] : 1935 Acct:[id number] Age/Sex: 89 / F Date of Service: 02/10/25 Loc: ED Accession Number: [id number] Procedure: XR chest 1V Ordering Provider: Erinn Nichols MD PROCEDURE: XR CHEST 1V INDICATIONS: Chest Pain TECHNIQUE: One view of the chest was acquired. COMPARISON: [facility], CR, XR CHEST 1V, 01/18/2024, 7:58. [facility], CR, XR CHEST 1V, 01/02/2024, 11:39. FINDINGS: Surgical changes and devices: Sternotomy wires, presumed prior CABG. Lungs and pleura: Lungs are chronically abnormal with a an interstitial prominence but this has worsened on the current study with a generalized alveolar edema superimposed. Possible underlying emphysematous change causing further heterogeneity. No pleural effusions or pneumothorax. Mediastinum: Mediastinal contours appear normal. Heart size is moderately enlarged. Bones and chest wall: No suspicious bony lesions. Overlying soft tissues appear unremarkable. IMPRESSION: Prior CABG, new moderate cardiomegaly. Chronic interstitial prominence with heterogeneity through both lungs likely reflecting superimposed mild pulmonary edema and concurrent emphysematous change. MDM Narrative Medical decision making narrative: CC: Chest heaviness Complicating co-morbidities: Prior three-vessel CABG, COPD oxygen-dependent, history of heart failure, AAA Because of her significant previous disease prior CABG low ejection fraction patient has been told by Cardiology that she likely is not going to be a candidate for any further interventions such as PCI or repeat CABG. Data collected from: patient Medical records reviewed: Patient was seen here in 2 times December of 2023 with chest pain, Code status: Patient would not want to be intubated and states that she is not afraid of dying but if it does not need to be today that is okay. I clarified that this would mean CPR and medications were acceptable but would avoid intubation. Differential considered: Unstable angina, NSTEMI, COPD exacerbation, musculoskeletal pain Exam documented above, pertinent findings include: Patient is quite pleasant describing 5/10 pain without significant pain behaviors diaphoresis or worsening tachypnea. Lab Test results independently reviewed as above. Pertinent findings: Independently reviewed EKG: EKG shows sinus rhythm with frequent PVCs and occasional couplets, right bundle branch block, no obvious ischemia similar to prior EKGs Imaging studies independently reviewed: Consultations: Treatments: Re-evaluations: Discussion: Vital signs, nurse triage note, medication list, previous ER visits, and all imaging modality reviewed. First set troponin 0.027, 2nd set 0.028. EKG showed right bundle asher block but no STT wave changes. Heart score 6. BNP 19395. BUN 8 creatinine 0.79. Prior CABG new moderate cardiomegaly. Chronic interstitial prominence with heterogenicity throughout both lungs likely reflecting superimposed mild pulmonary edema and concurrent emphysema changes. Patient given dose of Lasix here and will be sent home on Lasix for 2 more days. Patient has no active chest pain at this time. Differential diagnosis includes STEMI NSTEMI unstable angina pneumonia pneumothorax CHF. Discharge Plan Departure Patient Disposition: Home Clinical Impression: CHF (congestive heart failure) Qualifiers: Heart failure type: unspecified Heart failure chronicity: acute Qualified Code(s): I50.9 - Heart failure, unspecified Instructions: DI for Heart Failure Activity Restrictions/Additional Instructions: Return with new or worsening symptoms. Take your medicines as directed. Follow up with PCP on Friday for re-evaluation. Prescriptions: New furosemide [Lasix] 40 mg tablet 40 mg PO DAILY Qty: 2 0RF No Action aspirin 81 MG tablet,delayed release (DR/EC) 81 mg PO QDAY Qty: 0 Rx Instructions: morning omega 4-zsa-ddi-fish oil [Fish Oil] 1,000 mg (120 mg-180 mg) Capsule 1,000 mg PO DAILY nitroglycerin [Nitrostat] 0.4 mg Tablet, Sublingual 0.4 mg SUBLINGUAL Q5-15M PRN (Reason: Chest Pain) Patient Comments: Patient has not ever taken nitro at home, education provided to her today. She was administered 2x nitro by EMS en route, and 1x nitro while in the ER. vitamin E 400 unit Capsule 400 unit PO DAILY multivitamin Tablet,Chewable 1 tab PO DAILY fluticasone propion-salmeterol [Advair Diskus] 500-50 mcg/dose blister with device 1 ea INHALATION BID PRN (Reason: Shortness Of Breath) Patient Comments: INHALE 1 DOSE BY MOUTH TWICE DAILY DIRECTED prednisone 20 mg tablet 20 mg PO DAILY PRN (Reason: Shortness Of Breath Or Wheezing) atorvastatin [Lipitor] 20 mg tablet 40 mg PO QPM Patient Comments: patient states she forgets to take diltiazem HCl [Cartia XT] 120 mg capsule,extended release 24hr 120 mg PO QAM Patient Comments: TAKE 1 CAPSULE BY MOUTH ONCE DAILY levothyroxine 88 mcg tablet 88 mcg PO QAM Patient Comments: TAKE 1 TABLET BY MOUTH ONCE DAILY lisinopril 40 mg tablet 20 mg PO QAM Patient Comments: TAKE 1 TABLET BY MOUTH ONCE DAILY clopidogrel 75 mg tablet 75 mg PO QAM ipratropium-albuterol 0.5 mg-3 mg(2.5 mg base)/3 mL solution for nebulization 3 ml INHALATION BID metoprolol succinate 25 mg tablet extended release 24 hr 25 mg PO DAILY Patient Comments: pt has not 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, 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 10 mg Tablet 10 mg PO TID PRN (Reason: Muscle Spasm) albuterol 90 mcg/actuation Aerosol 90 mcg INHALATION Q4-6H PRN (Reason: Shortness Of Breath) torsemide 20 mg tablet 40 mg PO DAILY isosorbide mononitrate 120 mg tablet extended release 24 hr 240 mg PO QAM Patient Comments: TAKE 1 TABLET BY MOUTH ONCE DAILY IN THE MORNING isosorbide mononitrate 120 mg tablet extended release 24 hr 120 mg PO DAILY Qty: 30 0RF atorvastatin 40 mg tablet 40 mg PO DAILY Qty: 30 0RF levothyroxine 50 mcg capsule 50 mcg PO DAILY Qty: 30 0RF Referrals: Catie Storm ARNP [Primary Care Provider, Nursing] Stand Alone Forms: Patient Portal/API
--- NOTE | 2025-02-10 06:47 | DI.RAD.S_ITS ---
PROCEDURE: XR CHEST 1V INDICATIONS: Chest Pain TECHNIQUE: One view of the chest was acquired. COMPARISON: [facility], CR, XR CHEST 1V, 01/18/2024, 7:58. [facility], CR, XR CHEST 1V, 01/02/2024, 11:39. FINDINGS: Surgical changes and devices: Sternotomy wires, presumed prior CABG. Lungs and pleura: Lungs are chronically abnormal with a an interstitial prominence but this has worsened on the current study with a generalized alveolar edema superimposed. Possible underlying emphysematous change causing further heterogeneity. No pleural effusions or pneumothorax. Mediastinum: Mediastinal contours appear normal. Heart size is moderately enlarged. Bones and chest wall: No suspicious bony lesions. Overlying soft tissues appear unremarkable. IMPRESSION: Prior CABG, new moderate cardiomegaly. Chronic interstitial prominence with heterogeneity through both lungs likely reflecting superimposed mild pulmonary edema and concurrent emphysematous change. Dictated by: Oliverio Quiroga M.D. on 02/10/2025 at 9:32 Approved by: Oliverio Quiroga M.D. on 02/10/2025 at 9:34
[2025-02-10] MEDS: NITROGLYCERIN 0.4 MG SL TAB SL ×2 (06:57→09:51)
[2025-02-10] MEDS: SODIUM CHLORIDE 0.9% 1,000 ML 150 ML IV (06:57)
[2025-02-10 07:03] LABS: Add Manual Diff / Slide Review NO; Basophils Absolute Auto 100 /uL (0-100); Eosinophils Absolute Auto 300 /uL (0-450); Eosinophils Percent Auto 5.5 % (2-4); Hematocrit 37.6 % (36-46); Hemoglobin 12.4 g/dL (12.0-16.0); Lymphocytes Absolute Auto 900 /uL (1100-4500); Lymphocytes Percent Auto 17.3 % (25-40); Mean Corpuscular HGB Conc 33.1 % (30-36); Mean Corpuscular Hemoglobin 27.1 PG (26-34); Monocytes Absolute Auto 400 /uL (0-900); Neutrophils Absolute Auto 3500 /uL (1500-7000); Neutrophils Percent Auto 68.2 % (50-75); Platelet Count 226 X10^3/uL (150-400); Red Blood Cell Count 4.59 X10^6/uL (4.0-5.2); Red Cell Distribution Width 16.8 % (11.6-14.8); White Blood Cell Count 5.2 X10^3/uL (4.5-11.0)
--- NOTE | 2025-02-10 07:14 | PC.NURSE ---
pt states the heaviness is back to her normal heaviness that is always there,
[2025-02-10 07:22] LABS: INR 1.1 (0.9-1.3); Prothrombin Time 12.8 SECONDS (9.4-12.5)
[2025-02-10 07:25] LABS: PTT Partial Thromboplastin Tim 37 SECONDS (25.1-36.5)
[2025-02-10 08:19] LABS: Alanine Aminotransferase 13 IU/L (<35); Albumin 3.6 g/dL (3.5-5.0); Albumin Globulin Ratio 1.4 (1.0-2.8); Alkaline Phosphatase 67 U/L (38-126); Aspartate Aminotransferase 28 IU/L (14-36); BUN Creatinine Ratio 10.1 (6-22); Bilirubin Total 1.5 mg/dL (0.2-1.3); Blood Urea Nitrogen 8 mg/dL (7-17); Calcium 9.6 mg/dL (8.4-10.2); Carbon Dioxide 28 mmol/L (22-32); Chloride 106 mmol/L (98-107); Creatine Kinase 72 U/L (30-135); Estimated Glomerular Filt Rate > 60 mL/min (>60); Globulin 2.6 g/dL (1.7-4.1); Glucose 116 mg/dL (70-99); HEMOLYSIS < 15 (0-50); Lipase 23 U/L (23-300); Magnesium 1.8 mg/dL (1.6-2.3); Potassium 3.8 mmol/L (3.4-5.1); Sodium 139 mmol/L (137-145); Total Protein 6.2 g/dL (6.3-8.2)
[2025-02-10 08:32] LABS: NT-proBNP (BNP-Adult 18+) 16000 pg/mL (<450); Troponin I 0.027 ng/mL (0.01-0.034)
[2025-02-10 10:32] LABS: Troponin I 0.028 ng/mL (0.01-0.034)
[2025-02-10] MEDS: FUROSEMIDE 40 MG/4 ML VIAL IV (10:51)
--- NOTE | 2025-02-10 11:32 | PC.NURSE ---
Per MD pt is to hold torsemide for 2 days and take furosemide
--- NOTE | 2025-02-10 11:33 | PC.NURSE ---
pt reports improvement in chest heaviness
== END 2025-02-10 11:40 | disposition home or self-care (01) ==
PROVIDERS: Emergency Medicine; Emergency Provider Family Medicine; PCP Nurse Practitioner Family
DX: I11.0 Hypertensive heart disease with heart failure (principal); I50.9 Heart failure, unspecified; I45.10 Unspecified right bundle-branch block; J44.9 Chronic obstructive pulmonary disease, unspecified; Z95.1 Presence of aortocoronary bypass graft; Z99.81 Dependence on supplemental oxygen; F17.210 Nicotine dependence, cigarettes, uncomplicated
CPT/HCPCS: 36415; 71045; 80053; 82550; 83690; 83735; 83880; 84484; 85025; 85610; 85730; 93005; 93010; 96361; 96374; 99284; 99285; J1938

== ENCOUNTER 2025-03-11 12:56 | Emergency (ER) | payer MEDICARE, SELFPAY ==
[2023-06-12 16:02] VITALS: BMI 25.8
[2025-03-11] VITALS (7 sets, daily range): BP systolic 177–201; BP diastolic 98–107; PULSE 75–91; RESP 19–30; TEMP 36.4; O2SAT 91–99; BMI 24.0
--- NOTE | 2025-03-11 13:09 | DI.RAD.S_ITS ---
PROCEDURE: XR CHEST 1V INDICATIONS: Chest Pain TECHNIQUE: One view of the chest was acquired. COMPARISON: [facility], CR, XR CHEST 1V, 02/10/2025, 6:42. [facility], CR, XR CHEST 1V, 01/18/2024, 7:58. FINDINGS: Surgical changes and devices: Prior sternotomy, probable prior CABG.. Lungs and pleura: Lungs are abnormal with chronic interstitial prominence and this appears to have slightly worsened from last month.. No pleural effusions or pneumothorax. Mediastinum: Mediastinal contours appear normal. Heart size is mildly enlarged. Bones and chest wall: No suspicious bony lesions. Overlying soft tissues appear unremarkable. IMPRESSION: Worsening interstitial prominence likely reflects sequela of chronic lung disease and superimposed mild acute CHF. Mild cardiomegaly. Dictated by: Oliverio Quiroga M.D. on 03/11/2025 at 14:12 Approved by: Oliverio Quiroga M.D. on 03/11/2025 at 14:13
--- NOTE | 2025-03-11 13:15 | EKG_ITS ---
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
[2025-03-11 13:23] LABS: Add Manual Diff / Slide Review NO; Hematocrit 37.5 % (36-46); Hemoglobin 12.3 g/dL (12.0-16.0); Lymphocytes Absolute Auto 700 /uL (1100-4500); Mean Corpuscular HGB Conc 32.7 % (30-36); Mean Corpuscular Hemoglobin 27.5 PG (26-34); Mean Corpuscular Volume 84.1 fL (80-100); Platelet Count 216 X10^3/uL (150-400)
--- NOTE | 2025-03-11 13:25 | ED.CHESTPAIN ---
HPI - Chest Pain General Chief Complaint: Chest Pain Stated Complaint: Chest heaviness Time Seen by Provider: 03/11/25 13:00 Source: EMS Mode of arrival: EMS History of Present Illness HPI narrative: Patient is a 89-year-old female with a past medical history of hypo thyroidism, hypertension, COPD requiring 2 L at baseline, CAD, comes into the ED from we would be walk-in clinic for evaluation of chest pain, states that she was having chest heaviness 2 hours prior to arriving it would be, she states that it was 5/10, she was given full-dose aspirin and 2 nitros on route, she states that her symptoms have resolved. Related Data Home Medications ?Medication ?Instructions ?Recorded ?Confirmed aspirin 81 mg tablet,delayed 81 mg PO QDAY ##0 07/11/17 06/12/23 release multivitamin 1 tab PO DAILY 07/07/18 06/12/23 nitroglycerin 0.4 mg sublingual 0.4 mg sublingual Q5-15M PRN Chest 07/07/18 06/12/23 tablet (Nitrostat) Pain omega 1-ejr-kzv-fish oil 1,000 mg 1,000 mg PO DAILY 07/07/18 06/12/23 (120 mg-180 mg) capsule (Fish Oil) vitamin E 268 mg (400 unit) capsule 400 unit PO DAILY 07/07/18 06/12/23 atorvastatin 20 mg tablet (Lipitor) 40 mg PO QPM 05/04/22 06/12/23 diltiazem HCl 120 mg 120 mg PO QAM 05/04/22 06/12/23 capsule,extended release 24 hr (Cartia XT) levothyroxine 88 mcg tablet 88 mcg PO QAM 05/04/22 06/12/23 lisinopril 40 mg tablet 20 mg PO QAM 05/04/22 06/12/23 albuterol 90 mcg/actuation aerosol 90 mcg inhalation Q4-6H PRN 05/20/22 06/12/23 inhaler Shortness Of Breath clopidogrel 75 mg tablet 75 mg PO QAM 05/20/22 06/12/23 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 10 mg tablet 10 mg PO TID PRN Muscle Spasm 05/20/22 06/12/23 ipratropium 0.5 mg-albuterol 3 mg 3 ml inhalation BID 05/20/22 06/12/23 (2.5 mg base)/3 mL nebulization soln metoprolol succinate 25 mg 25 mg PO DAILY 05/20/22 06/12/23 tablet,extended release 24 hr torsemide 20 mg tablet 40 mg PO DAILY 04/29/23 06/12/23 fluticasone 500 mcg-salmeterol 50 1 ea inhalation BID PRN Shortness 05/16/23 06/12/23 mcg/dose blistr powdr for Of Breath inhalation (Advair Diskus) prednisone 20 mg tablet 20 mg PO DAILY PRN Shortness Of 05/16/23 06/12/23 Breath Or Wheezing isosorbide mononitrate 120 mg 240 mg PO QAM 06/12/23 06/12/23 tablet,extended release 24 hr Previous Rx's ?Medication ?Instructions ?Recorded atorvastatin 40 mg tablet 40 mg PO DAILY #30 tabs 09/24/23 isosorbide mononitrate 120 mg 120 mg PO DAILY #30 tabs 09/24/23 tablet,extended release 24 hr levothyroxine 50 mcg capsule 50 mcg PO DAILY #30 caps 09/24/23 furosemide 40 mg tablet (Lasix) 40 mg PO DAILY #2 tabs 02/10/25 furosemide 40 mg tablet (Lasix) 40 mg PO QAM 2 days #2 tabs 03/11/25 Allergies Allergy/AdvReac Type Severity Reaction Status Date / Time amlodipine Allergy Intermediate Verified 03/11/25 13:05 doxazosin (From Cardura) Allergy Intermediate Rash Verified 03/11/25 13:05 doxycycline Allergy Intermediate Rash Verified 03/11/25 13:05 gemfibrozil Allergy Intermediate Rash Verified 03/11/25 13:05 levofloxacin Allergy Intermediate Rash Verified 03/11/25 13:05 losartan Allergy Intermediate Rash Verified 03/11/25 13:05 montelukast (From Singulair) Allergy Intermediate Difficulty Verified 03/11/25 13:05 Breathing Sulfa (Sulfonamide Allergy Intermediate rash Verified 03/11/25 13:05 Antibiotics) sulfamethoxazole (From Allergy Intermediate Rash Verified 03/11/25 13:05 Bactrim) trimethoprim (From Bactrim) Allergy Intermediate Rash Verified 03/11/25 13:05 carvedilol Allergy Mild Rash Verified 03/11/25 13:05 acarbose AdvReac Intermediate Abdominal Verified 03/11/25 13:05 Pain chlorthalidone AdvReac Intermediate Redness of Verified 03/11/25 13:05 Skin metoprolol AdvReac Intermediate Verified 03/11/25 13:05 nifedipine AdvReac Intermediate Chills Verified 03/11/25 13:05 budesonide (From Symbicort) AdvReac Mild Anxiety Verified 03/11/25 13:05 choline fenofibrate (From AdvReac Mild Gastrointestinal Verified 03/11/25 13:05 Trilipix) Upset formoterol (From Symbicort) AdvReac Mild Anxiety Verified 03/11/25 13:05 Review of Systems Review of Systems Narrative: General: Denies fever, chills, weight loss HEENT: Denies headache, eye drainage, eye irritation, head trauma, sore throat, voice change Cardiovascular: Positive chest pain, denies palpitations, tachycardia Respiratory: Denies any shortness of breath, cough, wheeze, stridor GI/: Denies any abdominal pain, nausea, vomiting, diarrhea, bright red blood per rectum, melanotic stools, urinary frequency, urinary retention, dysuria, hematuria MSK: Denies any joint pain, muscle pains, swelling Skin: Denies any rashes, lesions, discoloration Neuro: Denies any headache, lightheadedness, dizziness, fainting, weakness Psych: Denies SI/HI Patient History Medical History Bilateral carpal tunnel syndrome Aneurysm of infrarenal abdominal aorta Hyperlipidemia 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 CAD (coronary artery disease) HTN (hypertension) Elevated TSH Unstable angina Surgical History Status post cholecystectomy H/O hysterectomy with oophorectomy H/O three vessel coronary artery bypass Hx of heart artery stent Family History Father Lung cancer Mother COPD (chronic obstructive pulmonary disease) Social History household members: children alcohol intake: never Smoking Status: Former smoker tobacco type: cigarettes alcohol intake frequency: 0-2 drinks per day Exam Narrative Exam Narrative: General: Cooperative, well-developed, not in acute distress HEENT: Normocephalic, atraumatic, PERRLA, normal sclera, eyelids normal Neck: Active full range of motion, atraumatic Chest: Normal to inspection, negative crepitus, no overlying erythema ecchymosis Respiratory: Patient on 2 L nasal cannula this is baseline with a history of COPD Normal respiratory effort, not in acute respiratory distress, clear to auscultation bilaterally negative cough, wheeze, tachypnea, rhonchi, rales Cardiology: Regular rate rhythm negative gallop, murmur, rubs GI/: No tenderness to palpation, soft, non rigid, normal to inspection, exam deferred MSK: Full active range of motion in all 4 extremities, atraumatic, no tenderness to palpation of any bony prominences Skin: No rashes or lesions noted Neuro: Alert awake oriented x3, moves all 4 extremities spontaneously, cranial nerves intact, able to answer all questions appropriately follows commands appropriately Psych: Cooperative, negative suicidal or homicidal ideations Initial Vital Signs Initial Vital Signs: Vital Signs Temperature 97.6 F 03/11/25 12:57 Pulse Rate 91 H 03/11/25 12:57 Respiratory Rate 21 03/11/25 12:57 Blood Pressure 177/99 H 03/11/25 12:57 Pulse Oximetry 92 03/11/25 12:57 Oxygen Delivery Method Nasal Cannula 03/11/25 12:57 Oxygen Flow Rate 2 03/11/25 12:57 Course Orders Ordered: ED Orders 03/11/25 13:09 XR chest 1V Stat EKG-12 Lead Stat 03/11/25 13:15 Complete Blood Count AUTO DIFF Stat Comprehensive Metabolic Panel Stat Lactate (Lactic Acid) Stat Lipase Stat Magnesium Stat NT-proBNP (BNP-Adult 18+) Stat PTT Partial Thromboplastin Vasquez Stat Prothrombin Time INR Stat Troponin & CK Cardiac Panel Stat Discontinued Medications Furosemide (Furosemide 40 Mg/4 Ml Vial) 40 mg IV NOW ONE Stop: 03/11/25 14:08 Vital Signs Vital signs: Vital Signs - 8 hr 03/11/25 12:57 03/11/25 12:59 03/11/25 13:00 Temperature 97.6 F Pulse Rate 91 H 85 82 Respiratory Rate 21 Blood Pressure 177/99 H Pulse Oximetry 92 92 91 Oxygen Delivery Method Nasal Cannula Nasal Cannula Nasal Cannula Oxygen Flow Rate 2 2 03/11/25 13:01 03/11/25 13:01 03/11/25 13:30 Temperature Pulse Rate 89 Respiratory Rate Blood Pressure 177/99 H 183/107 H Pulse Oximetry 91 Oxygen Delivery Method Nasal Cannula Oxygen Flow Rate 2 03/11/25 13:30 03/11/25 14:00 03/11/25 14:00 Temperature Pulse Rate 79 75 Respiratory Rate 30 H 19 Blood Pressure 201/104 H Pulse Oximetry 99 98 Oxygen Delivery Method Nasal Cannula Nasal Cannula Oxygen Flow Rate 2 2 MDM - Chest Pain Differential Diagnosis Differential diagnosis: Likely other (ACS, pneumonia, COVID, flu, electrolyte abnormality) Lab Data 03/11/25 13:15 03/11/25 13:15 Labs: Lab Results 03/11/25 Range/Units 13:15 WBC 8.2 (4.5-11.0) X10^3/uL RBC 4.46 (4.0-5.2) X10^6/uL Hgb 12.3 (12.0-16.0) g/dL Hct 37.5 (36-46) % MCV 84.1 (80-100) fL MCH 27.5 (26-34) PG MCHC 32.7 (30-36) % RDW 17.4 H (11.6-14.8) % Plt Count 216 (150-400) X10^3/uL Neut % (Auto) 81.6 H (50-75) % Lymph % (Auto) 8.6 L (25-40) % [place] % (Auto) 6.4 (3-14) % Eos % (Auto) 2.2 (2-4) % Baso % (Auto) 1.2 (0-2) % Neut # (Auto) 6700 (5331-2063) /uL Lymph # (Auto) 700 L (6780-8775) /uL [place] # (Auto) 500 (0-900) /uL Eos # (Auto) 200 (0-450) /uL Baso # (Auto) 100 (0-100) /uL PT 12.1 (9.4-12.5) SECONDS INR 1.1 (0.9-1.3) APTT 31 (25.1-36.5) SECONDS Sodium 138 (137-145) mmol/L Potassium 4.5 (3.4-5.1) mmol/L Chloride 105 (98-107) mmol/L Carbon Dioxide 27 (22-32) mmol/L BUN 17 (7-17) mg/dL Creatinine 0.81 (0.52-1.04) mg/dL Estimated GFR > 60 (>60) mL/min BUN/Creatinine Ratio 21.0 (6-22) Glucose 100 H (70-99) mg/dL Lactate 1.1 (0.7-2.1) mmol/L Calcium 10.3 H (8.4-10.2) mg/dL Magnesium 1.8 (1.6-2.3) mg/dL Total Bilirubin 1.4 H (0.2-1.3) mg/dL AST 36 (14-36) IU/L ALT 19 (<35) IU/L Alkaline Phosphatase 72 (38-126) U/L Total Creatine Kinase 33 (30-135) U/L Troponin I 0.025 (0.01-0.034) ng/mL NT-Pro-B Natriuret Pep 53500 H (<450) pg/mL Total Protein 6.9 (6.3-8.2) g/dL Albumin 4.0 (3.5-5.0) g/dL Globulin 2.9 (1.7-4.1) g/dL Albumin/Globulin Ratio 1.4 (1.0-2.8) Lipase 53 (23-300) U/L Imaging Data Chest x-ray: Radiologist's Impression: [address] [address] XRay Report Signed Patient: Lindsay Aguilar MR#: [id number] : 1935 Acct:[id number] Age/Sex: 89 / F Date of Service: 03/11/25 Loc: ED Accession Number: [id number] Procedure: XR chest 1V Ordering Provider: Estrada Borden D.O. PROCEDURE: XR CHEST 1V INDICATIONS: Chest Pain TECHNIQUE: One view of the chest was acquired. COMPARISON: [facility], CR, XR CHEST 1V, 02/10/2025, 6:42. [facility], CR, XR CHEST 1V, 01/18/2024, 7:58. FINDINGS: Surgical changes and devices: Prior sternotomy, probable prior CABG.. Lungs and pleura: Lungs are abnormal with chronic interstitial prominence and this appears to have slightly worsened from last month.. No pleural effusions or pneumothorax. Mediastinum: Mediastinal contours appear normal. Heart size is mildly enlarged. Bones and chest wall: No suspicious bony lesions. Overlying soft tissues appear unremarkable. IMPRESSION: Worsening interstitial prominence likely reflects sequela of chronic lung disease and superimposed mild acute CHF. Mild cardiomegaly. ECG Data Interpretation: EKG interpreted ED physician sinus 76 beats per minute QTC 497, right axis deviation, right bundle-branch block noted, nonspecific ST changes no STEMI MDM Narrative Medical decision making narrative: Patient is a 89-year-old female with a past medical history of CABG with three-vessel grafts in 2004, COPD requiring 2 L supplemental oxygen at baseline, hypothyroidism, hypertension, CHF, coming in from walk-in clinic for evaluation of chest heaviness, patient states that this happened several hours ago, said that it is a pressure 5/10, patient did receive full-dose aspirin and 2 nitros prior to arrival with complete resolution at time of evaluation. Patient's EKG not consistent with STEMI, patient did have chest x-ray lab work performed here in the emergency department. Chest x-ray showing worsening interstitial prominence most likely secondary to chronic lung disease and superimposed mild acute CHF with mild cardiomegaly, patient not requiring any increased supplemental oxygen need. Patient's BNP was elevated at 20,000, patient was given additional dose of IV Lasix. Patient's lab work without any leukocytosis, Chem panel unremarkable, Patient's troponin was also indeterminate at 0.025, most likely elevated secondary to acute CHF, patient stating she is not having any actual chest pain at this time, did offer patient repeat troponin and possible admission versus transfer for her symptoms however she states that she feels like she would rather be discharged home after dose of Lasix, patient was given strict return precautions she verbalized understanding of this and agrees to being discharged home with outpatient follow up. Discharge Plan Departure Patient Disposition: Home Clinical Impression: Acute exacerbation of chronic heart failure Activity Restrictions/Additional Instructions: Please take Lasix for the next 2 days. 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 Disease processes change and evolve, if your symptoms worsen or if you develop any new symptoms that are concerning to you please return for evaluation. Your evaluation today does not show any evidence of any life-threatening/serious illnesses requiring admission to the hospital or surgery. Please follow-up with your doctor for re-evaluation in approximately 1 day. Seek immediate medical attention for any worrisome symptoms. *If you do not have a primary care provider please contact the [facility] Resource line at [phone]. They will ask some questions about your medical history and help get you set up with a doctor in the community. Prescriptions: New furosemide [Lasix] 40 mg tablet 40 mg PO QAM 2 Days Qty: 2 0RF No Action aspirin 81 MG tablet,delayed release (DR/EC) 81 mg PO QDAY Qty: 0 Rx Instructions: morning omega 6-wed-duj-fish oil [Fish Oil] 1,000 mg (120 mg-180 mg) Capsule 1,000 mg PO DAILY nitroglycerin [Nitrostat] 0.4 mg Tablet, Sublingual 0.4 mg SUBLINGUAL Q5-15M PRN (Reason: Chest Pain) Patient Comments: Patient has not ever taken nitro at home, education provided to her today. She was administered 2x nitro by EMS en route, and 1x nitro while in the ER. 10\12\23 vitamin E 400 unit Capsule 400 unit PO DAILY multivitamin Tablet,Chewable 1 tab PO DAILY fluticasone propion-salmeterol [Advair Diskus] 500-50 mcg/dose blister with device 1 ea INHALATION BID PRN (Reason: Shortness Of Breath) Patient Comments: INHALE 1 DOSE BY MOUTH TWICE DAILY DIRECTED prednisone 20 mg tablet 20 mg PO DAILY PRN (Reason: Shortness Of Breath Or Wheezing) furosemide [Lasix] 40 mg tablet 40 mg PO DAILY Qty: 2 0RF atorvastatin [Lipitor] 20 mg tablet 40 mg PO QPM Patient Comments: patient states she forgets to take diltiazem HCl [Cartia XT] 120 mg capsule,extended release 24hr 120 mg PO QAM Patient Comments: TAKE 1 CAPSULE BY MOUTH ONCE DAILY levothyroxine 88 mcg tablet 88 mcg PO QAM Patient Comments: TAKE 1 TABLET BY MOUTH ONCE DAILY lisinopril 40 mg tablet 20 mg PO QAM Patient Comments: TAKE 1 TABLET BY MOUTH ONCE DAILY clopidogrel 75 mg tablet 75 mg PO QAM ipratropium-albuterol 0.5 mg-3 mg(2.5 mg base)/3 mL solution for nebulization 3 ml INHALATION BID metoprolol succinate 25 mg tablet extended release 24 hr 25 mg PO DAILY Patient Comments: pt has not started, 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 10 mg Tablet 10 mg PO TID PRN (Reason: Muscle Spasm) albuterol 90 mcg/actuation Aerosol 90 mcg INHALATION Q4-6H PRN (Reason: Shortness Of Breath) torsemide 20 mg tablet 40 mg PO DAILY isosorbide mononitrate 120 mg tablet extended release 24 hr 240 mg PO QAM Patient Comments: TAKE 1 TABLET BY MOUTH ONCE DAILY IN THE MORNING isosorbide mononitrate 120 mg tablet extended release 24 hr 120 mg PO DAILY Qty: 30 0RF atorvastatin 40 mg tablet 40 mg PO DAILY Qty: 30 0RF levothyroxine 50 mcg capsule 50 mcg PO DAILY Qty: 30 0RF Referrals: Catie Storm ARNP [Primary Care Provider, Nursing] Stand Alone Forms: Patient Portal/API
[2025-03-11 13:31] LABS: INR 1.1 (0.9-1.3); Prothrombin Time 12.1 SECONDS (9.4-12.5)
[2025-03-11 13:33] LABS: PTT Partial Thromboplastin Tim 31 SECONDS (25.1-36.5)
[2025-03-11 13:36] LABS: Alanine Aminotransferase 19 IU/L (<35); Albumin 4.0 g/dL (3.5-5.0); Albumin Globulin Ratio 1.4 (1.0-2.8); Alkaline Phosphatase 72 U/L (38-126); Blood Urea Nitrogen 17 mg/dL (7-17); Calcium 10.3 mg/dL (8.4-10.2); Carbon Dioxide 27 mmol/L (22-32); Chloride 105 mmol/L (98-107); Creatine Kinase 33 U/L (30-135); Estimated Glomerular Filt Rate > 60 mL/min (>60); Globulin 2.9 g/dL (1.7-4.1); Glucose 100 mg/dL (70-99); HEMOLYSIS < 15 (0-50); Lactate (Lactic Acid) 1.1 mmol/L (0.7-2.1); Lipase 53 U/L (23-300); Magnesium 1.8 mg/dL (1.6-2.3); Potassium 4.5 mmol/L (3.4-5.1); Sodium 138 mmol/L (137-145); Total Protein 6.9 g/dL (6.3-8.2)
[2025-03-11 13:47] LABS: NT-proBNP (BNP-Adult 18+) 20000 pg/mL (<450); Troponin I 0.025 ng/mL (0.01-0.034)
[2025-03-11] MEDS: FUROSEMIDE 40 MG/4 ML VIAL IV (14:51)
== END 2025-03-11 15:51 | disposition home or self-care (01) ==
PROVIDERS: Emergency Provider Student in an Organized Health Care Education/Training Program; PCP Nurse Practitioner Family
DX: I50.9 Heart failure, unspecified (principal); R07.9 Chest pain, unspecified
CPT/HCPCS: 36415; 71045; 80053; 82550; 83605; 83690; 83735; 83880; 84484; 85025; 85610; 85730; 93005; 96374; 99285; J1938